=== PATIENT | female | born 1955 | race Caucasian/White ===

== ENCOUNTER 2016-03-22 14:17 | Inpatient (IN) | payer MEDICAID ==
[~2016-03-22] VITALS: Ht 157.5 cm; Wt 124.1 kg
[~2016-03-22 14:17] MED LIST: ALBU6.7H INH; ATOR1TAB18 PO; BUTA1CAP PO; DULO20 PO; GABA300C5 PO; IPRA17I INH; LEVEMIR SQ; LINA145C PO; LISI-515 PO; NITR1SUB3 SL; NOVOLOGP2 SQ; OMEP20TA PO; TORS20TA PO; XARE20TA PO
[2016-03-22 14:49] VITALS: BP 161/109; PULSE 100; RESP 20; TEMP 98.9; O2SAT 95
[2016-03-22] MEDS ORDERED: MORPHINE SULFATE 4 MG/ML INJ IV PUSH ONE (16:15)
[2016-03-22] MEDS ORDERED: ONDANSETRON HCL 4 MG/2 ML VIAL IV PUSH ONE (16:15)
--- NOTE | 2016-03-22 16:33 | RADRPT ---
EXAM DATE/TIME: 03/22/2016 16:24 [facility] COMPARISON: CHEST SINGLE AP, February 05, 2016, 4:15. INDICATIONS : Short of breath. MEDICAL HISTORY : Congestive heart failure. Chronic obstructive pulmonary disease. SURGICAL HISTORY : None. ENCOUNTER: Initial ACUITY: 1 day PAIN SCORE: 0/10 LOCATION: Bilateral chest FINDINGS: There is mild cardiomegaly present. Diffuse cephalization of pulmonary vasculature. By basilar airspa ce densities. CONCLUSION: Radiographic findings consistent with congestive heart failure and pulmonary edema. Pat Felder MD on March 22, 2016 at 16:30 Board Certified Radiologist. This report was verified electronically.
[2016-03-22 16:40] VITALS: O2SAT 99
--- NOTE | 2016-03-22 16:41 | PD ---
HPI Chief Complaint: Abdominal Pain Time Seen by Provider: 16:36 Travel History International Travel<30 days: No Contact w/Intl Traveler<30days: No Traveled to known affect area: No History of Present Illness HPI 60-year-old female that presents to the ED for evaluation of swelling in the lower legs, abdominal pain and left-sided chest pain. Patient states that this in ongoing for the past 2 days. Per patient she was seen and admitted at the [facility] in [facility] and apparently she was released about 2 days ago. Apparently during her admission she was found to be in severe CHF and had a full workup and imaging. Apparently everything came back negative except for the CHF and was treated for it and was deemed that she could go home. Per patient ever since she feels like his be getting progressively worse. Per patient she feels very short of breath when she lays down. Per patient the swelling on the legs gets worse with sitting and she feels very bloated in her abdomen. She denies any history of liver disease. She does have an allergy to hydromorphone. Per patient her pain in her abdomen and chest as well as her legs is 10 out of 10. She denies any numbness, tilling, weakness. States shortness of breath gets worse with exertion. Per patient she's been compliant with her medications that were prescribed to her and she was released from the previous hospital. No other medical prongs reported today. Denies any history of bowel movement or urinary issues of that she does tell me that the initial complaint when she went to the previous hospital was that she was having diarrhea and nausea and vomit. She did provide me with paperwork that collaborates this story from her previous admission. PFSH Past Medical History Hx Anticoagulant Therapy: Yes Arthritis: Yes Asthma: No Autoimmune Disease: No Blood Disorders: No Anxiety: No Depression: Yes Heart Rhythm Problems: No Cancer: No Cardiac Catheterization: Yes (2 STENTS 2012/XIMENA) Cardiovascular Problems: Yes High Cholesterol: Yes Chemotherapy: No Chest Pain: Yes Congestive Heart Failure: Yes COPD: Yes Cerebrovascular Accident: No Coronary Artery Disease: Yes Diabetes: Yes Patient Takes Glucophage: No Diminished Hearing: No Deep Vein Thrombosis: Yes Endocrine: Yes Gastrointestinal Disorders: Yes GERD: Yes Genitourinary: Yes Hepatitis: No Hiatal Hernia: No Heparin Induced Thrombocytopen: No Hypertension: Yes Immune Disorder: No Implanted Vascular Access Dvce: No Kidney Stones: No Musculoskeletal: Yes Neurologic: No Psychiatric: Yes Reproductive: No Respiratory: Yes Immunizations Current: Yes Migraines: Yes Myocardial Infarction: Yes (X2 2012) Radiation Therapy: No Renal Failure: No Seizures: No Sickle Cell Disease: No Sleep Apnea: No Thyroid Disease: No Ulcer: No Tetanus Vaccination: > 5 Years Menopausal: Yes : 2 Para: 2 Tubal Ligation: Yes Past Surgical History Abdominal Surgery: No AICD: No Appendectomy: No Arteriovenous Shunt: No Cardiac Surgery: No Cholecystectomy: Yes Ear Surgery: No Endocrine Surgery: No Eye Surgery: Yes (lasix surgery bilat ) Genitourinary Surgery: No Gynecologic Surgery: No Insulin Pump: No Joint Replacement: No Neurologic Surgery: No Oral Surgery: No Pacemaker: No Thoracic Surgery: No Tonsillectomy: Yes Other Surgery: Yes (HEART CATH, ) Social History Alcohol Use: No Tobacco Use: No (quit 1 year 2014) Substance Use: No Allergies-Medications (Allergen,Severity, Reaction): Coded Allergies: Codeine (Verified Allergy, Intermediate, rash, 04/26/15) Penicillin (Verified Allergy, Intermediate, RASH,FEVER, SEIZURE, 04/26/15) Hydromorphone (Verified Adverse Reaction, Intermediate, Nausea/Vomiting, ) very lightheaded *MDRO Multi-Drug Resistant Organism (Verified Adverse Reaction, Unknown, ) MRSA and MDR-E. Coli (leg wound) 04/2015 Reported Meds & Prescriptions Reported Meds & Active Scripts Active Reported Novolog Inj (Insulin Aspart) 1,000 Unit/10 Ml Vial 35 SQ HS Novolog Inj (Insulin Aspart) 1,000 Unit/10 Ml Vial 38 Units SQ DAILY Novolog Inj (Insulin Aspart) 1,000 Unit/10 Ml Vial 35 Units SQ AM Levemir Inj (Insulin Detemir) 1,000 unit/ 10 ML Vial 70 Units SQ BID Do not mix with any other Insulin. Atrovent HFA 12.9 GM Inh (Ipratropium Aurora) 17 Mcg/Act Aer 2 Puff INH TID Proventil Hfa 6.7 GM Inh (Albuterol Sulfate) 90 Mcg/Act Aer 2 Puff INH Q4-6H PRN Cymbalta DR (Duloxetine HCl) 20 Mg Capdr Unknown Dose PO DAILY Nitroglycerin SL (Nitroglycerin) 0.4 Mg Subl 0.4 Mg SL DIRECTED PRN ONE TABLET UNDER THE TONGUE NEEDED FOR CHEST PAIN, MAY REPEAT EVERY FIVE MINUTES FOR A TOTAL OF 3 DOSES OR CALL 911 IF NO RELIEF Linzess (Linaclotide) 145 Mcg Cap Unknown Dose PO DAILY Gabapentin 300 Mg Cap 300 Mg PO QID Fioricet (Asnxvrytgt-Gafdguiorlfdv-Jrjvgodj) 50-300-40 Mg Cap 1 Cap PO Q4H PRN Xarelto (Rivaroxaban) 20 Mg Tab 20 Mg PO DAILY Torsemide 20 Mg Tab 20 Mg PO DAILY Atorvastatin (Atorvastatin Calcium) 80 Mg Tab 80 Mg PO DAILY Omeprazole 20 Mg Tab 20 Mg PO DAILY Lisinopril 20 Mg Tab 20 Mg PO DAILY Review of Systems Except as stated in HPI: all other systems reviewed are Neg Physical Exam Narrative GENERAL: SKIN: Warm and dry. HEAD: Atraumatic. Normocephalic. EYES: Pupils equal and round. No scleral icterus. No injection or drainage. ENT: No nasal bleeding or discharge. Mucous membranes pink and moist. Tongue is midline. No uvula deviation. NECK: Trachea midline. No JVD. CARDIOVASCULAR: Regular rate and rhythm. No murmurs, S3, S4. RESPIRATORY: No accessory muscle use. Rales heard in all lung hdez. Breath sounds equal bilaterally. GASTROINTESTINAL: Abdomen soft, tender with deep palpation on the left upper quadrant as well as the epigastric area, nondistended. Hepatic and splenic margins not palpable. MUSCULOSKELETAL: Extremities without clubbing, cyanosis, or edema. No obvious deformities. Patient does have 2+ pulses bilaterally but does have 2+ pitting edema on the lower extremities. Erythema noted and very warm to touch in both legs. Patient does have breaking of the skin on the left lower leg. Yellow crusting noted as well. NEUROLOGICAL: Awake and alert. No obvious cranial nerve deficits. Motor grossly within normal limits. Five out of 5 muscle strength in the arms and legs. Normal speech. PSYCHIATRIC: Appropriate mood and affect; insight and judgment normal. Data Data Last Documented VS Vital Signs Date Time Temp Pulse Resp B/P Pulse Ox O2 Delivery O2 Flow Rate FiO2 03/22/16 19:40 98.1 88 18 157/79 97 Nasal Cannula 2 Orders Electrocardiogram (03/22/16 16:11) Complete Blood Count With Diff (03/22/16 16:11) Comprehensive Metabolic Panel (03/22/16 16:11) Ckmb (Isoenzyme) Profile (03/22/16 16:11) Troponin I (03/22/16 16:11) B-Type Natriuretic Peptide (03/22/16 16:11) Prothrombin Time / Inr (Pt) (03/22/16 16:11) Act Partial Throm Time (Ptt) (03/22/16 16:11) Lipase (03/22/16 16:11) Urinalysis - C+S If Indicated (03/22/16 16:11) Magnesium (Mg) (03/22/16 16:11) Thyroid Stimulating Hormone (03/22/16 16:11) Chest, Single Ap (03/22/16 16:11) Ct Abd/Pel W Iv Contrast(Rout) (03/22/16 16:11) Iv Access Insert/Monitor (03/22/16 16:11) Ecg Monitoring (03/22/16 16:11) Oximetry (03/22/16 16:11) Morphine Inj (Morphine Inj) (03/22/16 16:15) Ondansetron Inj (Zofran Inj) (03/22/16 16:15) Furosemide Inj (Lasix Inj) (03/22/16 17:30) CKMB (03/22/16 16:00) CKMB% (03/22/16 16:00) Iohexol 350 Inj (Omnipaque 350 Inj) (03/22/16 18:13) Labs Laboratory Tests Test 03/22/16 03/22/16 16:00 18:22 White Blood Count 9.7 TH/MM3 Red Blood Count 4.38 MIL/MM3 Hemoglobin 12.0 GM/DL Hematocrit 37.4 % Mean Corpuscular Volume 85.5 FL Mean Corpuscular Hemoglobin 27.5 PG Mean Corpuscular Hemoglobin 32.1 % Concent Red Cell Distribution Width 14.4 % Platelet Count 312 TH/MM3 Mean Platelet Volume 9.3 FL Neutrophils (%) (Auto) 74.0 % Lymphocytes (%) (Auto) 15.3 % Monocytes (%) (Auto) 7.0 % Eosinophils (%) (Auto) 2.8 % Basophils (%) (Auto) 0.9 % Neutrophils # (Auto) 7.2 TH/MM3 Lymphocytes # (Auto) 1.5 TH/MM3 Monocytes # (Auto) 0.7 TH/MM3 Eosinophils # (Auto) 0.3 TH/MM3 Basophils # (Auto) 0.1 TH/MM3 CBC Comment DIFF FINAL Differential Comment Prothrombin Time 11.5 SEC Prothromb Time International 1.0 RATIO Ratio Activated Partial 25.2 SEC Thromboplast Time Sodium Level 138 MEQ/L Potassium Level 4.7 MEQ/L Chloride Level 100 MEQ/L Carbon Dioxide Level 31.6 MEQ/L Anion Gap 6 MEQ/L Blood Urea Nitrogen 19 MG/DL Creatinine 0.75 MG/DL Estimat Glomerular Filtration 79 ML/MIN Rate Random Glucose 134 MG/DL Calcium Level 8.9 MG/DL Magnesium Level 2.3 MG/DL Total Bilirubin 0.8 MG/DL Aspartate Amino Transf 52 U/L (AST/SGOT) Alanine Aminotransferase 32 U/L (ALT/SGPT) Alkaline Phosphatase 387 U/L Total Creatine Kinase 264 U/L Creatine Kinase MB 6.0 NG/ML Creatine Kinase MB % 2.3 % Troponin I 0.13 NG/ML B-Type Natriuretic Peptide 578 PG/ML Total Protein 7.6 GM/DL Albumin 2.8 GM/DL Lipase 46 U/L Thyroid Stimulating Hormone 3.530 uIU/ML 3rd Gen Urine Color YELLOW Urine Turbidity CLEAR Urine pH 6.0 Urine Specific [place] 1.015 Urine Protein 300 mg/dL Urine Glucose (UA) 70 mg/dL Urine Ketones 10 mg/dL Urine Occult Blood SMALL Urine Nitrite NEG Urine Bilirubin NEG Urine Urobilinogen LESS THAN 2.0 MG/DL Urine Leukocyte Esterase NEG Urine RBC 4 /hpf Urine WBC 4 /hpf Urine Squamous Epithelial 3 /hpf Cells Urine Hyaline Casts 8 /lpf Urine Mucus FEW /lpf Microscopic Urinalysis Comment CULT NOT INDICATED MDM Medical Decision Making Medical Screen Exam Complete: Yes Emergency Medical Condition: Yes Medical Record Reviewed: Yes Interpretation(s) Last Impressions Chest X-Ray 03/22/16 1611 Signed Impressions: Service Date/Time: March 16:24 - CONCLUSION: Radiographic findings consistent with congestive heart failure and pulmonary edema. Pat Felder MD CBC & BMP Diagram 03/22/16 16:00 CT abdomen WNL troponin elevated CK elevated LFTS WNL TSH WNL Lipase WNL BNP in the 500s Differential Diagnosis CHF versus CHF exacerbation versus dyspnea versus pitting edema versus cellulitis versus ACS versus acute abdomen versus pancreatitis versus hepatitis Narrative Course 60-year-old female that presents to the ED for evaluation of abdominal pain, swelling in the lower legs and shortness of breath. Patient was properly examined and was found to have signs and symptoms which appear to be consistent with CHF exacerbation. Patient does have significant edema on the lower legs as well as the abdomen and cannot lay down without having severe shortness of breath. Labs and imaging ordered. Patient was given pain medication. Labs and imaging showed what appears to be CHF exacerbation. Patient does have a positive troponin which is likely chronic secondary to the CHF. CT was negative for acute abdominal disease. Case was discussed in my attending Dr. Morel who evaluated the patient and recommends admission for CHF exacerbation. Patient was already given 40 mg of Lasix with good results. HEPAS was paged and Dr Grant agrees to admission. Procedures EKG Prior to Arrival: No Diagnosis Primary Impression: CHF exacerbation Qualified Code: I50.23 - Acute on chronic systolic congestive heart failure Additional Impressions: Elevated troponin I level Leg pain, bilateral Admitting Information Admitting Physician Requests: Observation Guillermo Begum Mar 22, 2016 16:41
[2016-03-22 16:48] LABS: AUTOMATED NEUTROPHIL # 7.2 TH/MM3 (1.8-7.7); BASOPHIL # 0.1 TH/MM3 (0-0.2); BASOPHIL % 0.9 % (0.0-2.0); EOSINOPHIL # 0.3 TH/MM3 (0-0.4); EOSINOPHIL % 2.8 % (0.0-4.0); HEMATOCRIT 37.4 % (35.0-46.0); HEMO FLAGS DIFF FINAL; LYMPH % 15.3 % (9.0-44.0); LYMPHOCYTE # 1.5 TH/MM3 (1.0-4.8); MEAN CELL VOLUME 85.5 FL (80.0-100.0); MEAN CORPUSCULAR HEMOGLOBIN 27.5 PG (27.0-34.0); MEAN CORPUSCULAR HGB CONC 32.1 % (32.0-36.0); PLATELET COUNT 312 TH/MM3 (150-450); RED BLOOD COUNT 4.38 MIL/MM3 (4.00-5.30); RED CELL DISTRIBUTION WIDTH 14.4 % (11.6-17.2); WHITE BLOOD COUNT 9.7 TH/MM3 (4.0-11.0)
[2016-03-22 17:00] LABS: APTT (PATIENT) 25.2 SEC (24.3-30.1); PROTHROMBIN TIME - PATIENT 11.5 SEC (9.8-11.6)
[2016-03-22 17:21] LABS: ANION GAP 6 MEQ/L (5-15); AST (GOT) 52 U/L (15-37); BICARBONATE 31.6 MEQ/L (21.0-32.0); BLOOD UREA NITROGEN 19 MG/DL (7-18); CHLORIDE 100 MEQ/L (98-107); GLOMERULAR FILTRATION RATE 79 ML/MIN (>89); MAGNESIUM 2.3 MG/DL (1.5-2.5); POTASSIUM 4.7 MEQ/L (3.5-5.1); SODIUM (NA) 138 MEQ/L (136-145)
[2016-03-22 17:26] LABS: ALKALINE PHOSPHATASE 387 U/L (45-117); ALT (GPT) 32 U/L (10-53); CREATINE KINASE 264 U/L (26-192); TOTAL BILIRUBIN ADULT 0.8 MG/DL (0.2-1.0)
[2016-03-22] MEDS ORDERED: FUROSEMIDE 20 MG/2 ML VIAL IV PUSH ONE (17:30)
[2016-03-22] MEDS ORDERED: IOHEXOL 350 MG/ML 10 ML VIAL (for RAD DIAG) IV ONE (18:13)
[2016-03-22 18:34] LABS: BLOOD, URINE SMALL (NEG); COMMENT (UR) CULT NOT INDICATED; CULTURE IF INDICATED CULT NOT INDICATED; GLUCOSE,URINE 70 mg/dL (NEG); HYALINE CAST, URINE 8 /lpf (RARE); KETONE, URINE 10 mg/dL (NEG); MUCUS URINE FEW /lpf (OCC); NITRITE,URINE NEG (NEG); SQUAMOUS EPITHELIAL CELL URINE 3 /hpf (0-5); URINE COLOR YELLOW (YELLW/STRAW)
[2016-03-22 19:40] VITALS: BP 157/79; PULSE 88; RESP 18; TEMP 98.1; O2SAT 97
--- NOTE | 2016-03-22 19:58 | RADRPT ---
EXAM DATE/TIME: 03/22/2016 18:05 [facility] COMPARISON: No previous studies available for comparison. INDICATIONS : Diffuse abdominal pain with nausea and vomiting. IV CONTRAST: 97 cc Omnipaque 350 (iohexol) IV ORAL CONTRAST: No oral contrast ingested. RADIATION DOSE: 16.85 CTDIvol (mGy) MEDICAL HISTORY : Gastroesophageal reflux disease. Hypertension. Hypercholesterolemia. SURGICAL HISTORY : Cholecystectomy. Coronary stents. ENCOUNTER: Initial ACUITY: 2 days PAIN SCALE: 6/10 LOCATION: Bilateral lower quadrant TECHNIQUE: Volumetric scanning of the abdomen and pelvis was performed. Using automated exposure control and adjustment of the mA and/or kV according to patient size, radiation dose was kept as low as reasonably achievable to obtain optimal diagnostic quality images. FINDINGS: There is cardiomegaly with moderate interstitial edema and small bilateral pleural effu sions. There is no pericardial effusion. There is moderate fatty replacement to the liver. The spl een, pancreas, adrenals and kidneys are unremarkable. The region of the cecum and terminal ileum appear normal. In the pelvis there is a fibroid uterus. There is no free fluid. There is no free air. There are no significant air-fluid levels. CONCLUSION: Limited exam by the patient's body habitus. I do not see the etiology for the patien t's diffuse abdominal pain. Beni Nava MD FACR on March 22, 2016 at 19:53 Board Certified Radiologist. This report was verified electronically.
[2016-03-22] MEDS ORDERED: NALOXONE HCL 0.4 MG/ML AMP IV PRN (20:30)
[2016-03-22] MEDS ORDERED: SODIUM CHLORIDE 0.9% FLUSH 5 ML FLUSH FLUSH PRN (20:30)
[2016-03-22] MEDS ORDERED: DEXTROSE 50% IN WATER 50 ML VIAL(D50) IV PUSH PRN (20:30)
[2016-03-22] MEDS ORDERED: GLUCAGON 1 MG/ML VIAL OTHER PRN (20:30)
[2016-03-22] MEDS: MORPHINE SULFATE 4 MG/ML INJ IV PUSH PRN (20:42)
[2016-03-22] MEDS: INSULIN ASPART SUPPLEMENTAL SCALE SQ SCH (21:00)
[2016-03-22] MEDS: SODIUM CHLORIDE 0.9% FLUSH 5 ML FLUSH FLUSH SCH (21:19)
[2016-03-22 22:20] VITALS: BP 99/57; PULSE 75; RESP 20; TEMP 98; O2SAT 96
--- NOTE | 2016-03-22 23:59 | HHI.HP ---
[facility] Sean Silva DO Admission Diagnosis CHF exacerbation, elevated troponin Diagnoses: (1) CHF exacerbation (2) Abdominal pain (3) Type 2 diabetes mellitus Chief Complaint: Abdominal pain Travel History International Travel<30 Days: No Contact w/Intl Traveler <30 Da: No Traveled to Known Affected Are: No History of Present Illness Ms. Clayton is a 60 year-old female with a past history of CAD with stenting x 2 in circumflex, type 2 diabetes mellitus, hypertension, hyperlipidemia, and CHF who presented to the emergency room following hospitalization at [facility] for CHF (discharged 2 days ago) who presents to the ER with abdominal pain, shortness of breath, and lower extremity edema, since discharge from . Findings in the ER include elevated troponin 0.13, BNP 578. Chest x-ray demonstrates CHF and pulmonary edema. Abdomen/pelvis CT negative. CBC unremarkable. The patient is seen in the CDU. The patient reports that she went to [facility] for N/V/diarrhea. She had abdominal bloating and swelling and could not urinate. On day 2 of the hospital stay, had hemodialysis. Dr. Bernard saw the patient at [facility] and patient states that he said there is "nothing wrong" with her from the GI perspective. She came to our hospital 03/22 for severe abdominal pain; left upper quadrant - at 5 a.m. she could not take the pain any more and came to hospital for evaluation; no black or red stool. Pain did not radiate to back. Denies fever. Weight gain - 30 lbs in one month. GI: Dr. Bernard Cardiac: Dr. Acosta - last cardiac cath one month ago . Review of Systems Constitutional: DENIES: Fever, Chills Respiratory: COMPLAINS OF: Shortness of breath, DENIES: Cough Cardiovascular: COMPLAINS OF: Chest pain, Dyspnea on Exertion, Lower Extremity Edema Gastrointestinal: COMPLAINS OF: Abdominal pain, DENIES: Black stools, Bloody stools, Diarrhea, Nausea, Vomiting Genitourinary: DENIES: Hematuria, Dysuria Other all other systems reviewed and are otherwise negative . Past Family Social History Past Medical History Coronary artery disease status post stent placement in circumflex 2 in 2012 Type 2 diabetes mellitus Hypertension Hyperlipidemia Congestive heart failure Left leg PAD . Past Surgical History Multiple cardiac catheterizations Cholecystectomy Tonsillectomy Lasik surgery Stents in legs . Reported Medications wrote order for medication reconciliation to be completed . 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/2015 Active Ordered Medications Current Medications Morphine Sulfate (Morphine Inj) 4 mg ONCE ONCE IV PUSH Last administered on 16:48; Start 03/22/16 at 16:15; Stop 03/22/16 at 16:16; Status DC Ondansetron HCl (Zofran Inj) 4 mg ONCE ONCE IV PUSH Last administered on 16:48; Start 03/22/16 at 16:15; Stop 03/22/16 at 16:16; Status DC Furosemide (Lasix Inj) 20 mg ONCE ONCE IV PUSH Last administered on 03/22/16 17:30; Start 03/22/16 at 17:30; Stop 03/22/16 at 17:31; Status DC Iohexol (Omnipaque 350 Inj) 97 ml STK-MED ONCE IV Last administered on 18:13; Start 03/22/16 at 18:13; Stop 03/22/16 at 18:14; Status DC IV Flush (NS Flush) 2 ml UNSCH PRN FLUSH FLUSH AFTER USING IV ACCESS; Start 02/24 at 20:30 IV Flush (NS Flush) 2 ml BID FLUSH Last administered on 03/22/16 21:19; Start 03/22/16 at 21:00 Naloxone HCl (Narcan Inj) 0.4 mg UNSCH PRN IV SEE LABEL COMMENTS; Start at 20:30 Furosemide (Lasix Inj) 40 mg BID@,18 IV PUSH ; Start 03/23/16 at 09:00 Morphine Sulfate (Morphine Inj) 2 mg Q4HR PRN IV PUSH pain >5 Last administered on 03/22/16t 20:42; Start 03/22/16 at 20:30 Dextrose (D50w (Vial) Inj) 25 ml UNSCH PRN IV PUSH HYPOGLYCEMIA-SEE COMMENTS; Start 03/22/16 at 20:30 Glucagon (Glucagon Inj) 1 mg UNSCH PRN OTHER HYPOGLYCEMIA-SEE COMMENTS; Start 03/22/16 at 20:30 Insulin Aspart (NovoLOG SUPPLEMENTAL SCALE) 1 ACHS SLIDING SCALE SQ ; Start 02/24 at 21:00 . Family History Father with CAD . Social History Tobacco: smoked up to 3 ppd x 35 years, quit January 2015 Alcohol: rare Illicit Drugs: denies . Physical Exam Vital Signs Vital Signs Date Time Temp Pulse Resp B/P Pulse Ox O2 Delivery O2 Flow Rate FiO2 03/22/16 22:20 98.0 75 20 99/57 96 03/22/16 19:40 98.1 88 18 157/79 97 Nasal Cannula 2 03/22/16 16:40 99 03/22/16 14:49 98.9 100 20 161/109 95 Physical Exam GENERAL: This is a well-nourished, well-developed patient, in no apparent distress. SKIN: No rashes, ecchymoses or lesions. Cool and dry. HEAD: Atraumatic. Normocephalic. EYES: No scleral icterus. No injection or drainage. ENT: Nose without bleeding, purulent drainage. NECK: Trachea midline. No JVD or lymphadenopathy. CARDIOVASCULAR: Regular rate and rhythm without murmurs, gallops, or rubs. Bilateral lower extremities with pitting edema. RESPIRATORY: Breath sounds equal bilaterally. Rales bilateral bases. No wheezes or rhonchi. GASTROINTESTINAL: Abdomen soft, upper abdomen tender to palpation. No guarding. MUSCULOSKELETAL: Extremities without clubbing, cyanosis. No calf tenderness. NEUROLOGICAL: Awake and alert. Motor and sensory grossly within normal limits. Normal speech. . Laboratory Laboratory Tests Test 03/22/16 03/22/16 03/22/16 16:00 18:22 22:47 White Blood Count 9.7 Red Blood Count 4.38 Hemoglobin 12.0 Hematocrit 37.4 Mean Corpuscular Volume 85.5 Mean Corpuscular Hemoglobin 27.5 Mean Corpuscular Hemoglobin 32.1 Concent Red Cell Distribution Width 14.4 Platelet Count 312 Mean Platelet Volume 9.3 Neutrophils (%) (Auto) 74.0 Lymphocytes (%) (Auto) 15.3 Monocytes (%) (Auto) 7.0 Eosinophils (%) (Auto) 2.8 Basophils (%) (Auto) 0.9 Neutrophils # (Auto) 7.2 Lymphocytes # (Auto) 1.5 Monocytes # (Auto) 0.7 Eosinophils # (Auto) 0.3 Basophils # (Auto) 0.1 CBC Comment DIFF FINAL Differential Comment Prothrombin Time 11.5 Prothromb Time International 1.0 Ratio Activated Partial 25.2 Thromboplast Time Sodium Level 138 Potassium Level 4.7 Chloride Level 100 Carbon Dioxide Level 31.6 Anion Gap 6 Blood Urea Nitrogen 19 Creatinine 0.75 Estimat Glomerular Filtration 79 Rate Random Glucose 134 Calcium Level 8.9 Magnesium Level 2.3 Total Bilirubin 0.8 Aspartate Amino Transf 52 (AST/SGOT) Alanine Aminotransferase 32 (ALT/SGPT) Alkaline Phosphatase 387 Total Creatine Kinase 264 173 Creatine Kinase MB 6.0 Creatine Kinase MB % 2.3 Troponin I 0.13 0.11 B-Type Natriuretic Peptide 578 Total Protein 7.6 Albumin 2.8 Lipase 46 Thyroid Stimulating Hormone 3.530 3rd Gen Urine Color YELLOW Urine Turbidity CLEAR Urine pH 6.0 Urine Specific [place] 1.015 Urine Protein 300 Urine Glucose (UA) 70 Urine Ketones 10 Urine Occult Blood SMALL Urine Nitrite NEG Urine Bilirubin NEG Urine Urobilinogen LESS THAN 2.0 Urine Leukocyte Esterase NEG Urine RBC 4 Urine WBC 4 Urine Squamous Epithelial 3 Cells Urine Hyaline Casts 8 Urine Mucus FEW Microscopic Urinalysis Comment CULT NOT INDICATED Result Diagram: 03/22/16 1600 03/22/16 1600 Imaging Last Impressions Chest X-Ray 03/22/16 161 Signed Impressions: Service Date/Time: March 16:24 - CONCLUSION: Radiographic findings consistent with congestive heart failure and pulmonary edema. Pat Felder MD Abdomen/Pelvis CT 03/22/161610 Signed Impressions: Service Date/Time: March 18:05 - CONCLUSION: Limited exam by the patient's body habitus. I do not see the etiology for the patient's diffuse abdominal pain. Beni Nava MD FACR . Assessment and Plan Problem List: (1) CHF exacerbation ICD Code: I50.9 Status: Acute (2) Abdominal pain ICD Code: R10.9 Status: Acute (3) Type 2 diabetes mellitus ICD Code: E11.9 Status: Chronic Assessment and Plan Ms. Clayton is a 60 year-old female with a past history of CAD with stenting x 2 in circumflex, type 2 diabetes mellitus, hypertension, hyperlipidemia, and CHF who presented to the emergency room following hospitalization at [facility] for CHF (discharged 2 days ago) who presents to the ER with abdominal pain, shortness of breath, lower extremity edema, and chest pain since discharge from . Findings in the ER include elevated troponin 0.13, BNP 578. Chest x-ray demonstrates CHF and pulmonary edema. Abdomen/pelvis CT negative. CBC unremarkable. Symptomatic exacerbation of congestive heart failure - Lasix 40 mg IV twice a day - Rule out ACS with serial EKGs and cardiac enzymes - Strict I and O q shift - Continuous cardiac telemetry to monitor for cardiac arrhythmia - Vital signs every 4 hours - Obtain records from [facility] for last hospitalization - consent signed by patient - Morphine 2 mg every 4 hours as needed for pain Abdominal pain - Abd/pelvis CT with contrast is negative - study limited by patient's body habitus - Lipase low at 46 - Unable to determine source of abdominal pain; likely secondary to abdominal fluid - consider consulting patient's GI doctor if needed - Dr. Bernard Type 2 diabetes mellitus - Accu-Chek before meals and at bedtime with NovoLog sliding scale coverage - Hypoglycemia protocol - Monitor blood glucose levels and adjust medications if needed - Heart healthy and Diabetic diet DVT prophylaxis - Heparin 5000 units subq q8h PFT by Dr. Arthur on 01/03/2016 showed moderate airway restriction, no evidence of airway obstruction, nonsignificant response to inhaled bronchodilator, and mild reduction in diffusion capacity but normal when corrected for alveolar volume. Echocardiogram 01/17/[address] Sanchez EF 25 30% Written by Savanna Soria, acting as scribe for Dr. Grant on 03/22/16 at 2356 .The documentation accurately reflects the work performed [id number] by me on 03/22/16 at 2359 Discussed Condition With ER PA and RN . Physician Certification 2 Midnight Certification Type: Admission for Inpatient Services Order for Inpatient Services The services are ordered in accordance with Medicare regulations or non- Medicare payer requirements, as applicable. In the case of services not specified as inpatient-only, they are appropriately provided as inpatient services in accordance with the 2-midnight benchmark. Estimated LOS (days): 3 days is the estimated time the patient will need to remain in the hospital, assuming treatment plan goals are met and no additional complications. Post-Hospital Plan: Not yet determined Problem Qualifiers (1) CHF exacerbation: Qualified Code: I50.23 - Acute on chronic systolic congestive heart failure (2) Type 2 diabetes mellitus: Savanna Soria Mar 22, 2016 23:59 Anil Grant MD Mar 23, 2016 08:31
[2016-03-23] VITALS (8 sets, daily range): BP systolic 123–139; BP diastolic 58–94; PULSE 51–104; RESP 18–20; TEMP 97.8–98.5; O2SAT 92–98
[2016-03-23 04:29] LABS: AUTOMATED NEUTROPHIL # 6.4 TH/MM3 (1.8-7.7); BASOPHIL # 0.1 TH/MM3 (0-0.2); BASOPHIL % 0.6 % (0.0-2.0); EOSINOPHIL # 0.4 TH/MM3 (0-0.4); HEMATOCRIT 33.8 % (35.0-46.0); HEMO FLAGS DIFF FINAL; LYMPH % 16.7 % (9.0-44.0); LYMPHOCYTE # 1.5 TH/MM3 (1.0-4.8); MEAN CELL VOLUME 85.5 FL (80.0-100.0); MEAN CORPUSCULAR HEMOGLOBIN 27.5 PG (27.0-34.0); MEAN CORPUSCULAR HGB CONC 32.2 % (32.0-36.0); NEUT % 70.7 % (16.0-70.0); PLATELET COUNT 292 TH/MM3 (150-450); RED BLOOD COUNT 3.95 MIL/MM3 (4.00-5.30); RED CELL DISTRIBUTION WIDTH 14.3 % (11.6-17.2); WHITE BLOOD COUNT 9.1 TH/MM3 (4.0-11.0)
[2016-03-23] MEDS: INSULIN ASPART SUPPLEMENTAL SCALE SQ SCH ×4 (05:11→21:09)
[2016-03-23 05:12] LABS: BICARBONATE 30.5 MEQ/L (21.0-32.0); POTASSIUM 3.9 MEQ/L (3.5-5.1)
[2016-03-23] MEDS: HEPARIN SODIUM - SQ 10,000 UNITS/ML VIAL SQ SCH ×3 (05:12→21:08)
[2016-03-23] MEDS ORDERED: METOLAZONE 5 MG TAB PO ONE (07:30)
[2016-03-23] MEDS: SODIUM CHLORIDE 0.9% FLUSH 5 ML FLUSH FLUSH SCH ×2 (08:30→21:09)
[2016-03-23] MEDS: FUROSEMIDE 40 MG/4 ML VIAL IV PUSH SCH ×2 (08:32→16:39)
[2016-03-23] MEDS: LISINOPRIL 10 MG TAB PO SCH (08:33)
[2016-03-23] MEDS: CLOPIDOGREL 75 MG TAB PO SCH (08:33)
[2016-03-23] MEDS: CARVEDILOL 3.125 MG TAB PO SCH ×2 (08:33→21:08)
[2016-03-23] MEDS: SPIRONOLACTONE 25 MG TAB PO SCH (08:33)
[2016-03-23] MEDS: ASPIRIN EC 81 MG TABEC PO SCH (08:33)
[2016-03-23] MEDS ORDERED: CARV3.125 PO (08:40)
[2016-03-23] MEDS ORDERED: BUME1TAB PO (08:40)
[2016-03-23] MEDS ORDERED: LANTUS2P SQ (08:42)
[2016-03-23] MEDS ORDERED: HUMALOG SQ (08:44)
[2016-03-23] MEDS ORDERED: SIME80CH CHEW (08:45)
[2016-03-23] MEDS ORDERED: TRAM50TA PO (08:45)
[2016-03-23] MEDS ORDERED: ASPI81CH CHEW (08:47)
[2016-03-23] MEDS ORDERED: PLAV75TA29 PO (08:48)
--- NOTE | 2016-03-23 09:20 | MB ---
cc: JAYNE ACOSTA M.D., MARK B. M.D. DATE OF CONSULTATION 03/23/2016 REASON FOR CONSULTATION Abdominal discomfort, shortness of breath and edema. HISTORY Ms. Clayton is a 60-year-old obese female with a history of coronary artery disease, peripheral arterial disease, and diabetes mellitus type 2. The patient was admitted to the hospital last evening because of evaluation for complaints of a left lateral abdominal and back discomfort and increasing shortness of breath and edema over the past few days. She was recently admitted to [facility] in [facility] a week ago for similar complaints and was discharged three days ago. She says since that time, her symptoms have progressed especially her edema and weight gain. She states she has been taking all of her medications as directed. She describes some orthopnea, but no paroxysmal nocturnal dyspnea type symptoms. She says her lower extremity edema has progressed significantly. Although her previous records are not yet available, she tells me that she did have some renal failure when she was there and required dialysis one-time through a catheter in her neck. She says that was discontinued because she started making urine. She says she continues to make urine without any problems. MEDICATIONS She has been taking her medications as directed at home, although the actual medications and dosages are not available here. She has currently been placed on furosemide 40 mg IV b.i.d. and sliding scale insulin. At home, she tells me at one point she had been on anticoagulation therapy for lower extremity clots, but is no longer taking that and is now taking Plavix and aspirin therapy. She was also on an JAROD inhibitor and low-dose beta waldemar therapy, although the dosages are not certain. She says she is on home oxygen therapy. ALLERGIES CODEINE, PENICILLIN, HYDROMORPHONE. FAMILY HISTORY Significant for coronary disease in her father. PAST MEDICAL HISTORY 1. coronary artery disease. She has had a cardiac catheterization back in January 15, 2014 here that showed a left ventricular ejection fraction of 40% at that time, diagonal branch disease of 90%, 50-60% right coronary artery stenosis and underwent a drug-eluting stent implant to the circumflex artery at that time. Since then, according to her, she has not had a repeat cardiac catheterization, but has had peripheral vascular interventions. 2. She has peripheral arterial disease with claudication. 3. Diabetes mellitus type 2. 4. Hypertension 5. Hyperlipidemia 6. Congestive heart failure 7. Morbid obesity 8. She says she has had three prior myocardial infarctions. 9. Denies stroke. PAST SURGICAL HISTORY 1. Cardiac catheterization and stent implant as mentioned. 2. Cholecystectomy 3. Tonsillectomy 4. Lasix surgery 5. Multiple peripheral interventions, the last one was an atherectomy and balloon [employer] of her left SFA back in February 2016. That was done in [facility] [place] SOCIAL HISTORY The patient was a cigarette smoker up to three packs a day for over 35 years, but quit in January 2015. Denies any significant alcohol intake or any illicit drug use. She is currently single, but lives with some friends. Does no regular exercise. Walks with a cane. Very sedentary lifestyle at this time. REVIEW OF SYSTEMS Chronic lower extremity edema. Claudication. Denies palpitations, lightheadedness or syncope. Denies fevers, chills, night sweats, nausea, vomiting or diarrhea at this time. She has had some abdominal discomfort on and off for which she was evaluated for here in the emergency room with a CT scan that was unremarkable and also at [facility] a week ago. She denies any recent bleeding or clotting disorders. Except for that mentioned in HPI, her complete 12-point review of systems is otherwise negative. PHYSICAL EXAM Physical examination reveals a morbidly obese female lying in bed in no distress at this time. VITAL SIGNS: Blood pressure 123/59 mmHg, heart rate is 89 and regular, respiratory rate 19, temperature 97.8, oxygen saturation 94% on two liters nasal cannula. HEAD: Head is normocephalic and atraumatic. EYES: Pupils equal round react to light. Sclerae anicteric. Extraocular movements intact. NECK: The neck is supple. There is no adenopathies. There is no jugular venous distention appreciable due to a thick neck. Carotid upstrokes normal. No bruits. LUNGS: Clear with decreased breath sounds bilaterally. HEART: PMI is laterally displaced and diffuse. S1-S2 are distant. I hear no murmurs, gallops, clicks or rubs. ABDOMEN: Obese. Bowel sounds present. There is some mild left lower quadrant tenderness, but no rebound. No hepatosplenomegaly, masses or bruits appreciated. EXTREMITIES: Lower extremities reveal +2 to 3 pretibial edema bilaterally. Perfusion appears adequate although pulses are diminished and difficult to appreciate due to severe edema. NEUROLOGIC: Exam is grossly intact. EKG from the emergency room last night shows a sinus rhythm rate 94, right bundle branch block with old inferior infarct, consider old anterolateral infarct, abnormal EKG. Compared to previous EKG's, there is probably no significant change. Also there is a left ventricular hypertrophy with repolarization abnormalities. Abnormal EKG. Compared to prior EKG's, no significant change. Chest x-ray from yesterday shows congestive heart failure and pulmonary edema. ABDOMINAL CT Although limited study due to habitus was negative from yesterday. LABORATORY DATA CBC this morning white count 9.1, hemoglobin 10.9, platelet count 292,000. Coags are normal. Chemistries sodium 141, potassium 3.9, chloride 102, CO2 30.5, BUN 20, creatinine 0.73, magnesium 2.3, calcium 8.4, random glucose 153. Cardiac enzymes CPK on arrival was 264, it has fallen to 155 this morning. Troponin I on arrival yesterday 0.13 and has fallen to 0.10 this morning. TSH 3.53, lipase 46. BNP 578. IMPRESSION 1. Ischemic cardiomyopathy with moderate left ventricular dysfunction. 2. Acute on chronic systolic congestive heart failure. 3. Indeterminate elevation of troponin-I likely secondary to congestive heart failure and chronic ischemic heart disease. 4. Chronic renal insufficiency. 5. Peripheral arterial disease status post recent left SFA intervention. 6. Diabetes mellitus type 2 7. Morbid obesity 8. Hypertensive heart disease RECOMMENDATIONS 1. The patient has been admitted and will be observed on telemetry. 2. Strict I's and O's and daily weights have been ordered. We will be a little more aggressive with her diuresis at this time and follow her renal function closely considering her previous problems with this. 3. Continue intravenous furosemide. 4. I have added a low dose of Spironolactone and Metolazone and will follow her electrolytes and renal function closely. 5. Coreg 3.125 mg p.o. b.i.d. has been restarted as tolerates by blood pressure and heart rate. 6. Resume JAROD inhibitor therapy in the form of Lisinopril 10 mg daily again as tolerated by blood pressure. 7. An echocardiogram has been ordered for reevaluation of her left ventricular function and to exclude any occult valvular disease. 8. Dr. Simon will be covering Dr. Acosta over the weekend until she returns on Saturday. I have discussed the plans in detail with the patient. Thank you for allowing us participate in the care of this patient. MD JOAQUIN Mitchell/SAMEER /8:21 AM /8:57 AM
--- NOTE | 2016-03-23 14:02 | HHI.PR ---
Subjective Remarks Follow up for CHF exacerbation, abdominal pain, shortness of breath, LE edema. The patient reports continued shortness of breath today, unchanged compared to her arrival, worse with any exertion. She reports diffuse dull abdominal pain. Denies chest pains. Reports continued lower extremity edema. She has no other medical complaints at this time. Objective Vitals Vital Signs Date Time Temp Pulse Resp B/P Pulse Ox O2 Delivery O2 Flow Rate FiO2 03/23/16 11:39 98.1 51 18 124/58 93 03/23/16 08:00 87 03/23/16 07:33 97.8 89 19 123/59 94 03/23/16 04:51 98.1 89 18 138/79 98 03/22/16 22:20 98.0 75 20 99/57 96 03/22/16 19:40 98.1 88 18 157/79 97 Nasal Cannula 2 03/22/16 16:40 99 03/22/16 14:49 98.9 100 20 161/109 95 I/O 03/22/16 03/22/16 03/22/16 03/23/16 03/23/16 03/23/16 07:00 15:00 23:00 07:00 15:00 23:00 Output Total 250 ml Balance -250 ml Output Urine Total 250 ml # Voids 1 Result Diagram: 03/23/16 0356 03/23/16 0356 Imaging Last Impressions Chest X-Ray 03/22/161610 Signed Impressions: Service Date/Time: March 16:24 - CONCLUSION: Radiographic findings consistent with congestive heart failure and pulmonary edema. Pat Felder MD Abdomen/Pelvis CT 03/22/161610 Signed Impressions: Service Date/Time: March 18:05 - CONCLUSION: Limited exam by the patient's body habitus. I do not see the etiology for the patient's diffuse abdominal pain. Beni Nava MD FACR Objective Remarks GENERAL: Well-nourished, well-developed morbidly obese female patient in [facility]. SKIN: Warm and dry. No rash. HEAD: Normocephalic. Atraumatic. EYES: Pupils equal and round. No scleral icterus. No injection or drainage. ENT: No nasal bleeding or discharge. Mucous membranes pink and moist. NECK: Supple. Trachea midline. CARDIOVASCULAR: Regular rate and rhythm. S1, S2 noted. No murmur appreciated. RESPIRATORY: No accessory muscle use. Clear to auscultation. Breath sounds equal bilaterally. GASTROINTESTINAL: Obese abdomen, soft, non-tender, nondistended. Normoactive bowel sounds x4. MUSCULOSKELETAL: No obvious deformities. Diffuse tense 2+ lower extremity edema bilaterally. NEUROLOGICAL: Awake and alert. No obvious cranial nerve deficits. Motor grossly within normal limits. Moves all extremities spontaneously. Normal speech. PSYCHIATRIC: Appropriate mood and affect; insight and judgment normal. Medications and IVs Current Medications Medications (Trade) Dose Ordered Sig/Nury Route Start Time Stop Time Status Last Admin (NS Flush) 2 ml UNSCH PRN FLUSH 03/22/16 20:30 (NS Flush) 2 ml BID FLUSH 03/22/16 21:00 03/23/16 08:30 (Narcan Inj) 0.4 mg UNSCH PRN IV 03/22/16 20:30 (Lasix Inj) 40 mg BID@09,18 IV PUSH 03/23/16 09:00 03/23/16 08:32 (Morphine Inj) 2 mg Q4HR PRN IV PUSH 03/22/16 20:30 03/22/16 20:42 (D50w (Vial) Inj) 25 ml UNSCH PRN IV PUSH 03/22/16 20:30 (Glucagon Inj) 1 mg UNSCH PRN OTHER 03/22/16 20:30 (Heparin Inj) 5,000 units Q8HR SQ 03/23/16 06:00 03/23/16 12:27 (Plavix) 75 mg DAILY PO 03/23/16 09:00 03/23/16 08:33 (Ecotrin Ec) 81 mg DAILY PO 03/23/16 09:00 03/23/16 08:33 (Prinivil) 10 mg DAILY PO 03/23/16 09:00 03/23/16 08:33 (Coreg) 3.125 mg Q12HR PO 03/23/16 09:00 03/23/16 08:33 (Aldactone) 25 mg DAILY PO 03/23/16 09:00 03/23/16 08:33 Urinary Catheter: No Vascular Central Line Catheter: No A/P Problem List: (1) CHF exacerbation ICD Code: I50.9 Status: Acute (2) Abdominal pain ICD Code: R10.9 Status: Acute (3) Type 2 diabetes mellitus ICD Code: E11.9 Status: Chronic Assessment and Plan 60-year-old female with history of CHF, CAD with stents, PAD, DM, HTN, HLD, morbid obesity, presents with abdominal pain, SOB, LE edema, chest pain since discharge from 2 days ago Acute on Chronic Systolic CHF with Ischemic Cardiomyopathy: BNP 578. CXR images reviewed by me, shows CHF, pulmonary edema. Last echocardiogram 2014 showed EF 25-30% -Started on IV Lasix 40mg bid -Consult patient's cashier parking lot Dr. Acosta -Echocardiogram ordered -Continued coreg, lisinopril, aspirin, plavix -Check lipid panel, HgbA1c -Cardiology Dr. Spangler added spironolactone 25 mg daily and Zaroxolyn 5mg po x1 -Monitor Is&Os, daily weight -Obtain records from [facility] Abdominal Pain: unclear etiology. CT abd/pelvis images reviewed by me, unremarkable however limited study secondary to patient's body habitus. Lipase wnl. -possibly related to fluid overload with CHF as above -consider possibility of diabetic gastroparesis, will obtain records from work up at [facility] -consider gastric emptying study if abdominal pain does not improve with diuresis -outpatient follow up with her hotel service manager Dr. Mcguire Diabetes Mellitus, type 2: -monitor Accu-checks, cover wtih SSI -hypoglycemia protocol -check HgbA1c DVT Prophylaxis: Heparin Written by Nellie Templeton, acting as scribe for Dr. Alfonso on 03/23/16 at 09:45. Attending Statement The documentation accurately reflects the work performed [id number] by meDr. Alfonso on 03/23/16 at 09:45. Problem Qualifiers (1) CHF exacerbation: Qualified Code: I50.23 - Acute on chronic systolic congestive heart failure (2) Type 2 diabetes mellitus: Nellie Templeton PA-C Mar 23, 2016 14:02 Alrfed Alfonso MD Mar 25, 2016 09:05
[2016-03-23 15:43] LABS: HEMOGLOBIN A1a 1.8 %; HEMOGLOBIN A1b 1.2 %; HEMOGLOBIN Ao 75.5 %; HEMOGLOBIN F 2.1 %; HEMOGLOBIN LA1C 2.1 %; HEMOGLOBIN P3 4.2 %
--- NOTE | 2016-03-23 17:01 | EKG ---
Date Performed: 03/22/2016 Time Performed: 16:48:31 PTAGE: 60 years EKG: Sinus rhythm POSSIBLE LEFT ATRIAL ENLARGEMENT Right bundle branch block, with bifasicular block POSSIBLE LEFT DELORES TRICULAR HYPERTROPHY INFERIOR MYOCARDIAL INFARCTION ANTEROLATERAL MYOCARDIAL INFARCTION When compared to previous tracing, there has baltazar further Widening of the QRS complex, the patient now meets criter ia for A right bundle branch block with bifasicular block. Otherwise no significant change. ABNORMAL ECG PREVIOUS TRACING : 08/20/2015 17.37 DOCTOR: Eliane Gabriel Interpretating Date/Time 03/23/2016 17:00:32
--- NOTE | 2016-03-23 23:00 | EC ---
Study Study Date:03/23/2016 STUDY CONCLUSIONS SUMMARY - Procedure narrative: Transthoracic echocardiography. Image quality was poor and views were limited. - Left ventricle: The cavity size was normal. Wall thickness was normal. Systolic function was possibly normal. Ejection fraction cannot be adequately assessed. - Aortic valve: Poorly visualized. If LV function is below 40, please consider prescribing an ACEI or ARB or document rationale for non-use. PROCEDURE DATA STUDY STATUS: Elective. Procedure: Transthoracic echocardiography. Image quality was poor and views were limited. Study completion: The patient tolerated the procedure well. Transthoracic echocardiography. M-mode, complete 2D, complete spectral Doppler, and color Doppler. Patient status: Inpatient. CARDIAC ANATOMY LEFT VENTRICLE: The cavity size was normal. Wall thickness was normal. Systolic function was possibly normal. Ejection fraction cannot be adequately assessed. Images were inadequate for LV wall motion assessment. AORTIC VALVE: Poorly visualized. Doppler: Transvalvular velocity was within the normal range. There was no stenosis. No regurgitation. AORTA: Aortic root: The aortic root was normal in size. MITRAL VALVE: Structurally normal valve. Doppler: Transvalvular velocity was within the normal range. There was no evidence for stenosis. No regurgitation. LEFT ATRIUM: The atrium was normal in size. RIGHT VENTRICLE: The cavity size was normal. Wall thickness was normal. PULMONIC VALVE: Doppler: Transvalvular velocity was within the normal range. There was no evidence for stenosis. No regurgitation. TRICUSPID VALVE: Structurally normal valve. Doppler: Transvalvular velocity was within the normal range. No regurgitation. PULMONARY ARTERY: The main pulmonary artery was normal-sized. Systolic pressure was within the normal range. RIGHT ATRIUM: The atrium was normal in size. PERICARDIUM: There was no pericardial effusion. SYSTEMIC VEINS: Inferior vena cava: The vessel was normal in size. BASIC MEASUREMENTS ADULT NORMAL Left ventricle LV internal dimension, ED, chordal level, *54.1 mm 43-52 PLAX LV internal dimension, ES, chordal level, *48.9 mm 23-38 PLAX Fractional shortening, chordal level, PLAX *10 % >29 LV posterior wall thickness, ED 10.9 mm IVS/LVPW ratio, ED 0.96 <1.3 Ventricular septum Septal thickness, ED 10.5 mm Aortic valve Leaflet separation 21 mm 15-26 Right ventricle RV internal dimension, ED, PLAX 30.3 mm 19-38 BASIC MEASUREMENTS ADULT NORMAL Aortic valve Leaflet separation 21 mm 15-26 Aorta Root diameter, ED 29 mm 20-37 Left atrium Anterior-posterior dimension, ES *43 mm 19-40 LA/aortic root ratio 1.48 LEGEND: Mean values are shown as u=mean value. Asterisk (*) krueger values outside specified normal range. Prepared and signed by Tushar Obrien [id number]
[2016-03-24 00:10] VITALS: BP 152/81; PULSE 99; RESP 22; TEMP 98; O2SAT 94
[2016-03-24] MEDS: MORPHINE SULFATE 4 MG/ML INJ IV PUSH PRN ×5 (00:20→21:04)
[2016-03-24 04:00] VITALS: BP 154/69; PULSE 92; RESP 18; TEMP 98.2; O2SAT 97
[2016-03-24] MEDS: INSULIN ASPART SUPPLEMENTAL SCALE SQ SCH ×4 (07:04→20:57)
[2016-03-24] MEDS: HEPARIN SODIUM - SQ 10,000 UNITS/ML VIAL SQ SCH ×3 (07:04→21:05)
[2016-03-24 07:54] LABS: AUTOMATED NEUTROPHIL # 6.7 TH/MM3 (1.8-7.7); BASOPHIL % 0.4 % (0.0-2.0); EOSINOPHIL # 0.4 TH/MM3 (0-0.4); EOSINOPHIL % 4.7 % (0.0-4.0); HEMATOCRIT 32.8 % (35.0-46.0); HEMO FLAGS DIFF FINAL; LYMPH % 16.5 % (9.0-44.0); LYMPHOCYTE # 1.5 TH/MM3 (1.0-4.8); MEAN CELL VOLUME 85.2 FL (80.0-100.0); MEAN CORPUSCULAR HEMOGLOBIN 27.7 PG (27.0-34.0); MEAN CORPUSCULAR HGB CONC 32.5 % (32.0-36.0); MONO % 6.7 % (0.0-8.0); NEUT % 71.7 % (16.0-70.0); PLATELET COUNT 277 TH/MM3 (150-450); RED BLOOD COUNT 3.85 MIL/MM3 (4.00-5.30); RED CELL DISTRIBUTION WIDTH 14.2 % (11.6-17.2); WHITE BLOOD COUNT 9.3 TH/MM3 (4.0-11.0)
[2016-03-24 08:00] VITALS: BP 154/81; PULSE 89; PULSE 94; RESP 16; TEMP 97.8; O2SAT 94
[2016-03-24 08:13] LABS: BICARBONATE 31.1 MEQ/L (21.0-32.0); MAGNESIUM 2.1 MG/DL (1.5-2.5); POTASSIUM 3.4 MEQ/L (3.5-5.1)
[2016-03-24 08:14] LABS: HDL CHOLESTEROL 25.7 MG/DL (40.0-60.0)
[2016-03-24] MEDS: LISINOPRIL 10 MG TAB PO SCH (08:52)
[2016-03-24] MEDS: ASPIRIN EC 81 MG TABEC PO SCH (08:52)
[2016-03-24] MEDS: CLOPIDOGREL 75 MG TAB PO SCH (08:53)
[2016-03-24] MEDS: SPIRONOLACTONE 25 MG TAB PO SCH ×2 (08:53→20:56)
[2016-03-24] MEDS: FUROSEMIDE 40 MG/4 ML VIAL IV PUSH SCH ×2 (08:53→16:57)
[2016-03-24] MEDS: CARVEDILOL 3.125 MG TAB PO SCH ×2 (08:53→20:56)
[2016-03-24] MEDS: SODIUM CHLORIDE 0.9% FLUSH 5 ML FLUSH FLUSH SCH ×2 (08:53→20:56)
[2016-03-24] MEDS ORDERED: POTASSIUM CHLORIDE 10 MEQ CONTROLLED RELEASE TAB PO ONE (09:00)
[2016-03-24] MEDS: METOCLOPRAMIDE HCL 10 MG/2 ML VIAL IV PUSH SCH ×3 (09:09→16:58)
[2016-03-24 12:00] VITALS: BP 130/70; PULSE 84; RESP 16; TEMP 98.1; O2SAT 97
--- NOTE | 2016-03-24 15:00 | PD.CARD.PN ---
Subjective Subjective Remarks Patient feels "less swollen" today and is breathing better today. K+ replaced this morning. Objective Medications Current Medications Medications (Trade) Dose Ordered Sig/Nury Route Start Time Stop Time Status Last Admin (NS Flush) 2 ml UNSCH PRN FLUSH 03/22/16 20:30 (NS Flush) 2 ml BID FLUSH 03/22/16 21:00 03/24/16 08:53 (Narcan Inj) 0.4 mg UNSCH PRN IV 03/22/16 20:30 (Lasix Inj) 40 mg BID@,18 IV PUSH 03/23/16 09:00 03/24/16 08:53 (Morphine Inj) 2 mg Q4HR PRN IV PUSH 03/22/16 20:30 03/24/16 11:42 (D50w (Vial) Inj) 25 ml UNSCH PRN IV PUSH 03/22/16 20:30 (Glucagon Inj) 1 mg UNSCH PRN OTHER 03/22/16 20:30 (Heparin Inj) 5,000 units Q8HR SQ 03/23/16 06:00 03/24/16 07:04 (Plavix) 75 mg DAILY PO 03/23/16 09:00 03/24/16 08:53 (Ecotrin Ec) 81 mg DAILY PO 03/23/16 09:00 03/24/16 08:52 (Prinivil) 10 mg DAILY PO 03/23/16 09:00 03/24/16 08:52 (Coreg) 3.125 mg Q12HR PO 03/23/16 09:00 03/24/16 08:53 (Aldactone) 25 mg DAILY PO 03/23/16 09:00 03/24/16 08:53 (Reglan Inj) 10 mg TIDAC IV PUSH 03/24/16 08:00 03/24/16 11:42 Vital Signs / I&O Vital Signs Date Time Temp Pulse Resp B/P Pulse Ox O2 Delivery O2 Flow Rate FiO2 03/24/16 12:00 98.1 84 16 130/70 97 03/24/16 08:00 97.8 94 16 154/81 94 03/24/16 08:00 Nasal Cannula 2.00 03/24/16 08:00 89 03/24/16 04:00 98.2 92 18 154/69 97 03/24/16 00:10 98.0 99 22 152/81 94 03/24/16 00:00 Nasal Cannula 2.00 03/23/16 22:42 98 Nasal Cannula 2.00 03/23/16 21:00 Nasal Cannula 2.00 03/23/16 20:07 101 03/23/16 19:30 98.5 103 20 139/94 92 03/23/16 15:40 98.4 104 18 129/63 93 I/O 03/23/16 03/23/16 03/23/16 03/24/16 03/24/16 03/24/16 07:00 15:00 23:00 07:00 15:00 23:00 Intake Total 76 ml 200 ml 480 ml Output Total 350 ml 650 ml 1325 ml Balance -274 ml -450 ml -845 ml Intake Oral 200 ml 480 ml Oral Supplement 60 ml IV Total 16 ml Output Urine Total 350 ml 650 ml 1325 ml # Voids 4 # Bowel Movements 1 Physical Exam GENERAL: Obese female, no acute distress SKIN: Warm and dry. HEAD: Atraumatic. Normocephalic. EYES: Pupils equal and round. No scleral icterus. No injection or drainage. ENT: No nasal bleeding or discharge. Mucous membranes pink and moist. NECK: Trachea midline. CARDIOVASCULAR: Regular rate and rhythm. RESPIRATORY: No accessory muscle use. Breath sounds equal bilaterally. GASTROINTESTINAL: Abdomen soft, non-tender, nondistended. Obese MUSCULOSKELETAL: Extremities without clubbing, cyanosis, BLE edema, right lower extremity wound dressing C/D/I NEUROLOGICAL: Awake and alert. No obvious cranial nerve deficits. Motor grossly within normal limits. Five out of 5 muscle strength in the arms and legs. Normal speech. PSYCHIATRIC: Appropriate mood and affect; insight and judgment normal. Laboratory Laboratory Tests Test 03/23/16 03/24/16 16:44 06:23 Potassium Level 3.9 MEQ/L 3.4 MEQ/L White Blood Count 9.3 TH/MM3 Red Blood Count 3.85 MIL/MM3 Hemoglobin 10.7 GM/DL Hematocrit 32.8 % Mean Corpuscular Volume 85.2 FL Mean Corpuscular Hemoglobin 27.7 PG Mean Corpuscular Hemoglobin 32.5 % Concent Red Cell Distribution Width 14.2 % Platelet Count 277 TH/MM3 Mean Platelet Volume 8.9 FL Neutrophils (%) (Auto) 71.7 % Lymphocytes (%) (Auto) 16.5 % Monocytes (%) (Auto) 6.7 % Eosinophils (%) (Auto) 4.7 % Basophils (%) (Auto) 0.4 % Neutrophils # (Auto) 6.7 TH/MM3 Lymphocytes # (Auto) 1.5 TH/MM3 Monocytes # (Auto) 0.6 TH/MM3 Eosinophils # (Auto) 0.4 TH/MM3 Basophils # (Auto) 0.0 TH/MM3 CBC Comment DIFF FINAL Differential Comment Sodium Level 140 MEQ/L Chloride Level 99 MEQ/L Carbon Dioxide Level 31.1 MEQ/L Anion Gap 10 MEQ/L Blood Urea Nitrogen 17 MG/DL Creatinine 0.68 MG/DL Estimat Glomerular Filtration 89 ML/MIN Rate Random Glucose 175 MG/DL Calcium Level 8.4 MG/DL Magnesium Level 2.1 MG/DL Triglycerides Level 137 MG/DL Cholesterol Level 93 MG/DL LDL Cholesterol 40 MG/DL HDL Cholesterol 25.7 MG/DL Cholesterol/HDL Ratio 3.61 RATIO Imaging Last 72 hours Impressions Chest X-Ray 03/22/16 1611 Signed Impressions: Service Date/Time: March 16:24 - CONCLUSION: Radiographic findings consistent with congestive heart failure and pulmonary edema. Pat Felder MD Abdomen/Pelvis CT 03/22/16 1611 Signed Impressions: Service Date/Time: March 18:05 - CONCLUSION: Limited exam by the patient's body habitus. I do not see the etiology for the patient's diffuse abdominal pain. Beni Nava MD FACR Assessment and Plan Assessment and Plan Assessment: 1. Ischemic cardiomyopathy with moderate left ventricular dysfunction. 2. Acute on chronic systolic congestive heart failure. 3. Indeterminate elevation of troponin-I likely secondary to congestive heart failure and chronic ischemic heart disease. 4. RBBB with LAHB 5. Peripheral arterial disease status post recent left SFA intervention. 6. Diabetes mellitus type 2 7. Morbid obesity 8. Hypertensive heart disease 9. ASHD Plan: Continue strict I/O Increase Aldactone to BID Continue diuresis IV with careful monitoring of labwork Continue lisinopri, ASA, Plavix and Coreg Pending lower extremity doppler US Will follow up Assessment and plan discussed with Radha Brito Mar 24, 2016 14:59
[2016-03-24 16:00] VITALS: BP 120/56; PULSE 82; RESP 16; TEMP 98; O2SAT 96
[2016-03-24 20:00] VITALS: BP 118/61; PULSE 75; PULSE 91; RESP 18; TEMP 98.2; O2SAT 94
--- NOTE | 2016-03-24 23:44 | HHI.PR ---
Subjective Remarks patient seen today at around 4 PM. Says she is feeling a little better. Denies any chest pain. Denies any nausea or vomiting. Denies any lightheadedness or dizziness. Reviewed echocardiogram, which was unable to assess LV function. Objective Vital Signs Date Time Temp Pulse Resp B/P Pulse Ox O2 Delivery O2 Flow Rate FiO2 03/24/16 20:00 98.2 91 18 118/61 94 03/24/16 16:00 98.0 82 16 120/56 96 03/24/16 12:00 98.1 84 16 130/70 97 03/24/16 08:00 97.8 94 16 154/81 94 03/24/16 08:00 Nasal Cannula 2.00 03/24/16 08:00 89 03/24/16 04:00 98.2 92 18 154/69 97 03/24/16 00:10 98.0 99 22 152/81 94 03/24/16 00:00 Nasal Cannula 2.00 I/O 03/23/16 03/23/16 03/23/16 03/24/16 03/24/16 03/24/16 07:00 15:00 23:00 07:00 15:00 23:00 Intake Total 76 ml 200 ml 480 ml 240 ml Output Total 350 ml 650 ml 1325 ml 400 ml Balance -274 ml -450 ml -845 ml -160 ml Intake Oral 200 ml 480 ml 240 ml Oral Supplement 60 ml IV Total 16 ml Output Urine Total 350 ml 650 ml 1325 ml 400 ml # Voids 4 # Bowel Movements 1 0 Result Diagram: 03/24/16 0623 03/24/1623 Objective Remarks GENERAL: patient lying in bed. Appears comfortable. alert and oriented 3. SKIN: Warm and dry. HEAD: Normocephalic. EYES: No scleral icterus. No injection or drainage. NECK: Supple, trachea midline. No JVD. CARDIOVASCULAR: Regular rate and rhythm without murmurs, gallops, or rubs. RESPIRATORY: Breath sounds equal bilaterally. No accessory muscle use. GASTROINTESTINAL: Abdomen soft, non-tender, nondistended. MUSCULOSKELETAL: No cyanosis, or edema. BACK: Nontender without obvious deformity. No CVA tenderness. A/P Assessment and Plan 60-year-old female with history of CHF, CAD with stents, PAD, DM, HTN, HLD, morbid obesity, presents with abdominal pain, SOB, LE edema, chest pain since discharge from 2 days ago //Acute on Chronic Systolic CHF with Ischemic Cardiomyopathy: BNP 578. CXR images reviewed by me, shows CHF, pulmonary edema. Last echocardiogram 2014 showed EF 25-30% -Started on IV Lasix 40mg bid -Consult patient's medical office assistant Dr. Acosta -Echocardiogram unable to assess LV function. -Continued coreg, lisinopril, aspirin, plavix -Check lipid panel, HgbA1c -Cardiology Dr. Spangler added spironolactone 25 mg daily and Zaroxolyn 5mg po x1 -Monitor Is&Os, daily weight -Tense bilateral lower extremity edema is improving slowly. -Obtain records from [facility] -Cardiology following. Appreciate assistance. //Abdominal Pain: unclear etiology. CT abd/pelvis images reviewed by me, unremarkable however limited study secondary to patient's body habitus. Lipase wnl. -possibly related to fluid overload with CHF as above -consider possibility of diabetic gastroparesis, awaiting records from work up at [facility] -consider gastric emptying study if abdominal worsens. -outpatient follow up with her infant teacher Dr. Mcguire -Improving. //Diabetes Mellitus, type 2: Uncontrolled. A1c 12.9. -monitor Accu-checks, cover wtih SSI -Continue hypoglycemia protocol DVT Prophylaxis: Heparin Alfred Alfonso MD Mar 24, 2016 23:43
[2016-03-25] VITALS (7 sets, daily range): BP systolic 111–144; BP diastolic 55–87; PULSE 78–94; RESP 17–20; TEMP 97.6–98.2; O2SAT 96–99
[2016-03-25] MEDS: MORPHINE SULFATE 4 MG/ML INJ IV PUSH PRN ×4 (01:59→20:35)
[2016-03-25] MEDS: INSULIN ASPART SUPPLEMENTAL SCALE SQ SCH ×4 (05:31→20:53)
[2016-03-25] MEDS: HEPARIN SODIUM - SQ 10,000 UNITS/ML VIAL SQ SCH ×3 (05:31→20:36)
[2016-03-25 08:04] LABS: AUTOMATED NEUTROPHIL # 6.2 TH/MM3 (1.8-7.7); BASOPHIL # 0.1 TH/MM3 (0-0.2); BASOPHIL % 0.8 % (0.0-2.0); EOSINOPHIL # 0.4 TH/MM3 (0-0.4); HEMATOCRIT 35.6 % (35.0-46.0); HEMO FLAGS DIFF FINAL; LYMPH % 20.6 % (9.0-44.0); LYMPHOCYTE # 1.9 TH/MM3 (1.0-4.8); MEAN CELL VOLUME 84.9 FL (80.0-100.0); MEAN CORPUSCULAR HEMOGLOBIN 26.9 PG (27.0-34.0); MEAN CORPUSCULAR HGB CONC 31.7 % (32.0-36.0); NEUT % 68.6 % (16.0-70.0); PLATELET COUNT 271 TH/MM3 (150-450); RED CELL DISTRIBUTION WIDTH 14.7 % (11.6-17.2)
[2016-03-25 08:28] LABS: POTASSIUM 3.5 MEQ/L (3.5-5.1)
[2016-03-25] MEDS: METOCLOPRAMIDE HCL 10 MG/2 ML VIAL IV PUSH SCH ×3 (08:35→17:41)
[2016-03-25] MEDS: SODIUM CHLORIDE 0.9% FLUSH 5 ML FLUSH FLUSH SCH ×2 (08:35→20:53)
[2016-03-25] MEDS: SPIRONOLACTONE 25 MG TAB PO SCH ×2 (08:37→20:35)
[2016-03-25] MEDS: LISINOPRIL 10 MG TAB PO SCH (08:37)
[2016-03-25] MEDS: FUROSEMIDE 40 MG/4 ML VIAL IV PUSH SCH ×2 (08:37→17:44)
[2016-03-25] MEDS: CARVEDILOL 3.125 MG TAB PO SCH ×2 (08:37→20:36)
[2016-03-25] MEDS: CLOPIDOGREL 75 MG TAB PO SCH (08:37)
[2016-03-25] MEDS: ASPIRIN EC 81 MG TABEC PO SCH (08:38)
--- NOTE | 2016-03-25 09:55 | PD.CARD.PN ---
Subjective Subjective Remarks No complaints, Stable CV Objective Vital Signs / I&O Vital Signs Date Time Temp Pulse Resp B/P Pulse Ox O2 Delivery O2 Flow Rate FiO2 03/25/16 08:00 97.8 80 20 124/61 97 03/25/16 04:00 97.6 78 17 115/55 96 03/25/16 00:00 97.9 88 18 111/64 98 03/24/16 21:10 Nasal Cannula 2.00 03/24/16 20:00 75 03/24/16 20:00 98.2 91 18 118/61 94 03/24/16 16:00 98.0 82 16 120/56 96 03/24/16 12:00 98.1 84 16 130/70 97 I/O 03/24/16 03/24/16 03/24/16 03/25/16 03/25/16 03/25/16 07:00 15:00 23:00 07:00 15:00 23:00 Intake Total 200 ml 480 ml 240 ml 240 ml Output Total 650 ml 1325 ml 400 ml 300 ml Balance -450 ml -845 ml -160 ml -60 ml Intake Oral 200 ml 480 ml 240 ml 240 ml Output Urine Total 650 ml 1325 ml 400 ml 300 ml # Bowel Movements 0 Physical Exam CONSTITUTIONAL: Obese WF EYES: Conjunctiva normal. Sclera nonicteric. Eyelids normal. No xanthelasma. HEENT: Oral mucosa normal without pallor or cyanosis. NECK: JVD less than or equal to 5 cm of water. RESPIRATORY: Breathing is unlabored without accessory muscle use. Normal breath sounds. No wheezes, rales or rubs present. CARDIOVASCULAR: Normal point of maximal impulse. No cardiac thrill present. Regular rate and rhythm. No murmurs, gallops, rubs or clicks present. PERIPHERAL CIRCULATION: No cyanosis, clubbing, edema or varicosities present. GASTROINTESTINAL: Normal bowel sounds. Nontender without rigidity or guarding. No masses present. No hepatomegaly. Liver is nontender to palpation and spleen is nonpalpable. Digital rectal exam - not indicated for cardiovascular exam. MUSCULOSKELETAL: No kyphosis or scoliosis present. The patient is not ambulated. Able to undergo rehabilitation. SKIN: Skin turgor is normal. No rashes. NEUROLOGICAL: Grossly oriented to person, place and time. Normal mood and appropriate affect. Laboratory Laboratory Tests Test 03/25/16 05:43 White Blood Count 9.0 TH/MM3 Red Blood Count 4.20 MIL/MM3 Hemoglobin 11.3 GM/DL Hematocrit 35.6 % Mean Corpuscular Volume 84.9 FL Mean Corpuscular Hemoglobin 26.9 PG Mean Corpuscular Hemoglobin 31.7 % Concent Red Cell Distribution Width 14.7 % Platelet Count 271 TH/MM3 Mean Platelet Volume 8.8 FL Neutrophils (%) (Auto) 68.6 % Lymphocytes (%) (Auto) 20.6 % Monocytes (%) (Auto) 6.0 % Eosinophils (%) (Auto) 4.0 % Basophils (%) (Auto) 0.8 % Neutrophils # (Auto) 6.2 TH/MM3 Lymphocytes # (Auto) 1.9 TH/MM3 Monocytes # (Auto) 0.5 TH/MM3 Eosinophils # (Auto) 0.4 TH/MM3 Basophils # (Auto) 0.1 TH/MM3 CBC Comment DIFF FINAL Differential Comment Sodium Level 139 MEQ/L Potassium Level 3.5 MEQ/L Chloride Level 97 MEQ/L Carbon Dioxide Level 32.0 MEQ/L Anion Gap 10 MEQ/L Blood Urea Nitrogen 18 MG/DL Creatinine 0.65 MG/DL Estimat Glomerular Filtration 94 ML/MIN Rate Random Glucose 193 MG/DL Calcium Level 8.6 MG/DL Assessment and Plan Assessment and Plan Ischemic cardiomyopathy with moderate left ventricular dysfunction. and. chronic systolic congestive heart failure getting better elevation of troponin-I as per Dr Acosta with h/o stent Chronic renal insufficiency. Peripheral arterial disease , Diabetes mellitus type 2 obesity Hypertensive heart disease, Slow improvement.As per Antonio Lara MD Mar 25, 2016 09:55
[2016-03-25] MEDS: POTASSIUM CHLORIDE 10 MEQ CAP PO SCH ×2 (11:49→20:36)
[2016-03-25] MEDS ORDERED: SENNOSIDES 8.6 MG TAB PO PRN (16:00)
[2016-03-25] MEDS ORDERED: MAGNESIUM HYDROXIDE SUSP 30 ML CUP PO ONE (16:00)
[2016-03-25] MEDS ORDERED: SOD PHOSPHATE/SOD BIPHOSPHATE (ADULT) ENEMA 133ML PR ONE (16:00)
[2016-03-25] MEDS ORDERED: MAGNESIUM HYDROXIDE SUSP 30 ML CUP PO PRN (16:00)
[2016-03-25] MEDS ORDERED: DOCUSATE SODIUM 50 MG/SENNA 8.6 MG TAB PO ONE (16:00)
[2016-03-25] MEDS ORDERED: BISACODYL 10 MG SUPP PR PRN (16:00)
--- NOTE | 2016-03-25 17:05 | RADRPT ---
EXAM DATE/TIME: 03/25/2016 16:11 [place] COMPARISON: No previous studies available for comparison. INDICATIONS : Distention MEDICAL HISTORY : Hypertension. Gastroesophageal reflux disease. Hypercholesterolemia. SURGICAL HISTORY : Cholecystectomy. Coronary stents. ENCOUNTER: Initial ACUITY: 3 days PAIN SCORE: 6/10 LOCATION: Abdomen FINDINGS: Minimal gas filled transverse colon is noted. There is no significant small bowel dilatation. The guzman ng bases are clear. CONCLUSION: I do not see evidence for significant gaseous distention. Beni Nava MD FACR on March 25, 2016 at 16:50 Board Certified Radiologist. This report was verified electronically.
[2016-03-25] MEDS: DOCUSATE SODIUM 100 MG CAP PO SCH (17:38)
--- NOTE | 2016-03-25 23:12 | HHI.PR ---
Subjective Remarks patient reporting epigastric discomfort this afternoon after eating. She denies any shortness of breath. Says she feels constipated. Reports that bowel movement recorded 2 days ago was very small. Objective Vital Signs Date Time Temp Pulse Resp B/P Pulse Ox O2 Delivery O2 Flow Rate FiO2 03/25/16 20:30 Nasal Cannula 2.00 03/25/16 20:00 98.2 94 18 144/87 97 03/25/16 16:40 Nasal Cannula 2.00 03/25/16 16:00 97.9 80 18 120/65 99 03/25/16 12:00 97.9 84 18 126/60 97 03/25/16 08:04 85 03/25/16 08:00 97.8 80 20 124/61 97 03/25/16 04:00 97.6 78 17 115/55 96 03/25/16 00:00 97.9 88 18 111/64 98 I/O 03/24/16 03/24/16 03/24/16 03/25/16 03/25/16 03/25/16 07:00 15:00 23:00 07:00 15:00 23:00 Intake Total 200 ml 480 ml 240 ml 240 ml 960 ml 240 ml Output Total 650 ml 1325 ml 400 ml 300 ml 2000 ml 1100 ml Balance -450 ml -845 ml -160 ml -60 ml -1040 ml -860 ml Intake Oral 200 ml 480 ml 240 ml 240 ml 960 ml 240 ml Output Urine Total 650 ml 1325 ml 400 ml 300 ml 2000 ml 1100 ml # Bowel Movements 0 0 0 Result Diagram: 03/25/16 0543 03/25/16 0543 Objective Remarks GENERAL: patient lying in bed. Appears comfortable. alert and oriented 3. SKIN: Warm and dry. HEAD: Normocephalic. EYES: No scleral icterus. No injection or drainage. NECK: Supple, trachea midline. No JVD. CARDIOVASCULAR: Regular rate and rhythm without murmurs, gallops, or rubs. RESPIRATORY: Breath sounds equal bilaterally. No accessory muscle use. GASTROINTESTINAL: Abdomen soft, non-tender, nondistended. gastrointestinal/ midline lower chest tender to palpation. MUSCULOSKELETAL: No cyanosis, or edema. BACK: Nontender without obvious deformity. No CVA tenderness. A/P Assessment and Plan 60-year-old female with history of CHF, CAD with stents, PAD, DM, HTN, HLD, morbid obesity, presents with abdominal pain, SOB, LE edema, chest pain since discharge from 2 days ago //Acute on Chronic Systolic CHF with Ischemic Cardiomyopathy: BNP 578. CXR images reviewed by me, shows CHF, pulmonary edema. Last echocardiogram 2014 showed EF 25-30% -Started on IV Lasix 40mg bid -Consult patient's student assistant Dr. Acosta -Echocardiogram unable to assess LV function. -Continued coreg, lisinopril, aspirin, plavix -Check lipid panel, HgbA1c -Cardiology Dr. Spangler added spironolactone 25 mg daily and Zaroxolyn 5mg po x1 -Monitor Is&Os, daily weight -Tense bilateral lower extremity edema is improving slowly. -Obtain records from [facility] -Cardiology following. Appreciate assistance. //Abdominal Pain: unclear etiology. CT abd/pelvis images reviewed by me, unremarkable however limited study secondary to patient's body habitus. Lipase wnl. -possibly related to fluid overload with CHF as above -consider possibility of diabetic gastroparesis, awaiting records from work up at [facility] -consider gastric emptying study if abdominal worsens. -outpatient follow up with her business dean Dr. Mcguire -03/25 Improved intiallty, recurrence. ap abd negative. pt sasy this is constipation.laxatives given //Diabetes Mellitus, type 2: Uncontrolled. A1c 12.9. -monitor Accu-checks, cover wtih SSI -Continue hypoglycemia protocol DVT Prophylaxis: Heparin Discharge Planning home when cleared by cardiology. Alfred Alfonso MD Mar 25, 2016 23:12
[2016-03-26] VITALS (9 sets, daily range): BP systolic 123–159; BP diastolic 60–79; PULSE 81–97; RESP 16–20; TEMP 97.5–98.3; O2SAT 96–98
[2016-03-26] MEDS: MORPHINE SULFATE 4 MG/ML INJ IV PUSH PRN ×2 (00:51→21:22)
[2016-03-26] MEDS: DOCUSATE SODIUM 100 MG CAP PO SCH ×2 (03:33→16:57)
[2016-03-26] MEDS: INSULIN ASPART SUPPLEMENTAL SCALE SQ SCH ×4 (06:21→21:20)
[2016-03-26] MEDS: HEPARIN SODIUM - SQ 10,000 UNITS/ML VIAL SQ SCH ×3 (06:22→21:21)
[2016-03-26] MEDS: SODIUM CHLORIDE 0.9% FLUSH 5 ML FLUSH FLUSH SCH ×2 (09:09→21:22)
[2016-03-26] MEDS: SPIRONOLACTONE 25 MG TAB PO SCH ×2 (09:10→21:22)
[2016-03-26] MEDS: CARVEDILOL 3.125 MG TAB PO SCH ×2 (09:10→21:19)
[2016-03-26] MEDS: CLOPIDOGREL 75 MG TAB PO SCH (09:10)
[2016-03-26] MEDS: METOCLOPRAMIDE HCL 10 MG/2 ML VIAL IV PUSH SCH ×3 (09:10→17:00)
[2016-03-26] MEDS: ASPIRIN EC 81 MG TABEC PO SCH (09:10)
[2016-03-26] MEDS: LISINOPRIL 10 MG TAB PO SCH (09:10)
[2016-03-26] MEDS: FUROSEMIDE 40 MG/4 ML VIAL IV PUSH SCH ×2 (09:10→17:21)
[2016-03-26] MEDS: POTASSIUM CHLORIDE 10 MEQ CAP PO SCH ×2 (09:14→21:19)
[2016-03-26] MEDS ORDERED: SOD PHOSPHATE/SOD BIPHOSPHATE (ADULT) ENEMA 133ML PR ONE (09:15)
[2016-03-26 10:46] LABS: BICARBONATE 35.5 MEQ/L (21.0-32.0); POTASSIUM 4.2 MEQ/L (3.5-5.1)
--- NOTE | 2016-03-26 14:24 | HHI.PR ---
Subjective Remarks pt says she feels better s/p BM yesterday. no morepain. feels like going home has walker at home. glucose elevated. add levemir. Objective Vital Signs Date Time Temp Pulse Resp B/P Pulse Ox O2 Delivery O2 Flow Rate FiO2 03/26/16 12:00 98.0 84 16 142/67 97 03/26/16 08:00 98.1 86 20 125/65 96 03/26/16 04:00 98.3 81 17 139/69 97 03/26/16 00:00 98.0 82 18 123/60 98 03/25/16 20:30 Nasal Cannula 2.00 03/25/16 20:00 87 03/25/16 20:00 98.2 94 18 144/87 97 03/25/16 16:40 Nasal Cannula 2.00 03/25/16 16:00 97.9 80 18 120/65 99 I/O 03/25/16 03/25/16 03/25/16 03/26/16 03/26/16 03/26/16 07:00 15:00 23:00 07:00 15:00 23:00 Intake Total 240 ml 960 ml 240 ml 480 ml Output Total 300 ml 2000 ml 1100 ml 600 ml Balance -60 ml -1040 ml -860 ml -120 ml Intake Oral 240 ml 960 ml 240 ml 480 ml Output Urine Total 300 ml 2000 ml 1100 ml 600 ml # Bowel Movements 0 0 0 Result Diagram: 03/25/16 0543 03/26/16 1003 Objective Remarks GENERAL: patient lying in bed. Appears comfortable. alert and oriented 3. SKIN: Warm and dry. HEAD: Normocephalic. EYES: No scleral icterus. No injection or drainage. NECK: Supple, trachea midline. No JVD. CARDIOVASCULAR: Regular rate and rhythm without murmurs, gallops, or rubs. RESPIRATORY: Breath sounds equal bilaterally. No accessory muscle use. GASTROINTESTINAL: Abdomen soft, non-tender, nondistended. gastrointestinal/ midline lower chest tender to palpation. MUSCULOSKELETAL: No cyanosis, edema 2+ which was present yesterday has improved slightly. small blister over left anterior LE is stable, no signs of infection BACK: Nontender without obvious deformity. No CVA tenderness. A/P Assessment and Plan 60-year-old female with history of CHF, CAD with stents, PAD, DM, HTN, HLD, morbid obesity, presents with abdominal pain, SOB, LE edema, chest pain since discharge from 2 days ago //Acute on Chronic Systolic CHF with Ischemic Cardiomyopathy: BNP 578. CXR images reviewed by me, shows CHF, pulmonary edema. Last echocardiogram 2014 showed EF 25-30% -Started on IV Lasix 40mg bid -Consult patient's military personnel specialist Dr. Acosta -Echocardiogram unable to assess LV function. -Continued coreg, lisinopril, aspirin, plavix -Check lipid panel, HgbA1c -Cardiology Dr. Spangler added spironolactone 25 mg daily and Zaroxolyn 5mg po x1 -Monitor Is&Os, daily weight -Tense bilateral lower extremity edema is improving slowly. -re-request records from [facility] -Cardiology following. Appreciate assistance. //Abdominal Pain: unclear etiology. CT abd/pelvis images reviewed by me, unremarkable however limited study secondary to patient's body habitus. Lipase wnl. -possibly related to fluid overload with CHF as above -consider possibility of diabetic gastroparesis, awaiting records from work up at [facility] -consider gastric emptying study if abdominal worsens. -outpatient follow up with her hedis analyst Dr. Mcguire -03/25 Improved intiallty, recurrence. ap abd negative. pt sasy this is constipation.laxatives given -03/26 resolved. cont to monitor constipation. //Diabetes Mellitus, type 2: Uncontrolled. A1c 12.9. -monitor Accu-checks, cover wtih SSI -Continue hypoglycemia protocol -03/26 - glucose elevated. add levemir. DVT Prophylaxis: Heparin Discharge Planning home when cleared by cardiology. Alfred Alfonso MD Mar 26, 2016 14:24
[2016-03-26] MEDS ORDERED: INSULIN DETEMIR 100 UNITS/ML VIAL SQ SCH (15:30)
[2016-03-26] MEDS: DOCUSATE SODIUM 50 MG/SENNA 8.6 MG TAB PO SCH (21:19)
[2016-03-26] MEDS: INSULIN DETEMIR 100 UNITS/ML VIAL SQ SCH (21:20)
[2016-03-27 04:52] VITALS: BP 124/62; PULSE 84; RESP 18; TEMP 98; O2SAT 94
[2016-03-27] MEDS: DOCUSATE SODIUM 100 MG CAP PO SCH (06:38)
[2016-03-27] MEDS: HEPARIN SODIUM - SQ 10,000 UNITS/ML VIAL SQ SCH ×2 (06:38→14:00)
[2016-03-27] MEDS: INSULIN ASPART SUPPLEMENTAL SCALE SQ SCH ×2 (06:39→11:29)
[2016-03-27 08:00] VITALS: BP 137/66; PULSE 85; RESP 20; TEMP 98.3; O2SAT 98
[2016-03-27] MEDS: LISINOPRIL 10 MG TAB PO SCH (08:06)
[2016-03-27] MEDS: SODIUM CHLORIDE 0.9% FLUSH 5 ML FLUSH FLUSH SCH (08:06)
[2016-03-27] MEDS: CARVEDILOL 3.125 MG TAB PO SCH (08:06)
[2016-03-27] MEDS: FUROSEMIDE 40 MG/4 ML VIAL IV PUSH SCH (08:06)
[2016-03-27] MEDS: CLOPIDOGREL 75 MG TAB PO SCH (08:06)
[2016-03-27] MEDS: METOCLOPRAMIDE HCL 10 MG/2 ML VIAL IV PUSH SCH ×2 (08:06→11:29)
[2016-03-27] MEDS: POTASSIUM CHLORIDE 10 MEQ CAP PO SCH (08:07)
[2016-03-27] MEDS: SPIRONOLACTONE 25 MG TAB PO SCH (08:07)
[2016-03-27] MEDS: DOCUSATE SODIUM 50 MG/SENNA 8.6 MG TAB PO SCH (08:07)
[2016-03-27] MEDS: INSULIN DETEMIR 100 UNITS/ML VIAL SQ SCH (08:07)
[2016-03-27] MEDS: ASPIRIN EC 81 MG TABEC PO SCH (08:07)
[2016-03-27 08:10] VITALS: PULSE 83
[2016-03-27 12:00] VITALS: BP 103/62; PULSE 86; RESP 18; TEMP 98.3; O2SAT 96
[2016-03-27] MEDS ORDERED: SPIR25TA PO (14:37)
[2016-03-27] MEDS ORDERED: LISI10TA3 PO (14:37)
[2016-03-27] MEDS ORDERED: GABA300C5 PO (14:37)
[2016-03-27] MEDS ORDERED: BUME1TAB PO (14:37)
[2016-03-27] MEDS ORDERED: CARV3.125 PO (14:37)
[2016-03-27] MEDS ORDERED: DOCU1CAP39 PO (14:37)
--- NOTE | 2016-03-27 15:40 | HHI.DS ---
Discharge Summary Admission Date Mar 22, 2016 at 20:19 Discharge Date: Mar 27, 2016 Admitting Diagnosis CHF exacerbation, elevated troponin (1) CHF exacerbation ICD Code: I50.9 Diagnosis: Principal (2) Abdominal pain ICD Code: R10.9 Diagnosis: Secondary (3) Type 2 diabetes mellitus ICD Code: E11.9 Diagnosis: Secondary Procedures None Brief History - From Admission Ms. Clayton is a 60 year-old female with a past history of CAD with stenting x 2 in circumflex, type 2 diabetes mellitus, hypertension, hyperlipidemia, and CHF who presented to the emergency room following hospitalization at [facility] for CHF (discharged 2 days ago) who presents to the ER with abdominal pain, shortness of breath, and lower extremity edema, since discharge from . Findings in the ER include elevated troponin 0.13, BNP 578. Chest x-ray demonstrates CHF and pulmonary edema. Abdomen/pelvis CT negative. CBC unremarkable. The patient is seen in the CDU. The patient reports that she went to [facility] for N/V/diarrhea. She had abdominal bloating and swelling and could not urinate. On day 2 of the hospital stay, had hemodialysis. Dr. Bernard saw the patient at [facility] and patient states that he said there is "nothing wrong" with her from the GI perspective. She came to our hospital 03/22 for severe abdominal pain; left upper quadrant - at 5 a.m. she could not take the pain any more and came to hospital for evaluation; no black or red stool. Pain did not radiate to back. Denies fever. Weight gain - 30 lbs in one month. GI: Dr. Bernard Cardiac: Dr. Acosta - last cardiac cath one month ago . CBC/BMP: 03/25/16 0543 03/26/16 1003 Significant Findings Laboratory Tests Test 03/25/16 03/26/16 05:43 10:03 Hemoglobin 11.3 GM/DL (11.6-15.3) Mean Corpuscular Hemoglobin 26.9 PG (27.0-34.0) Mean Corpuscular Hemoglobin 31.7 % Concent (32.0-36.0) Chloride Level 97 MEQ/L 95 MEQ/L (98-107) (98-107) Random Glucose 193 MG/DL 287 MG/DL (74-106) (74-106) Carbon Dioxide Level 35.5 MEQ/L (21.0-32.0) Estimat Glomerular Filtration 72 ML/MIN (>89) Rate Imaging Last Impressions Abdomen X-Ray 03/25/16 0000 Signed Impressions: Service Date/Time: Friday, March 25, 2016 16:11 - CONCLUSION: I do not see evidence for significant gaseous distention. Beni Nava MD FACR Chest X-Ray 03/22/16 1611 Signed Impressions: Service Date/Time: March 16:24 - CONCLUSION: Radiographic findings consistent with congestive heart failure and pulmonary edema. Pat Felder MD Abdomen/Pelvis CT 03/22/16 1611 Signed Impressions: Service Date/Time: March 18:05 - CONCLUSION: Limited exam by the patient's body habitus. I do not see the etiology for the patient's diffuse abdominal pain. Beni Nava MD FACR PE at Discharge GENERAL: Well-nourished, well-developed morbidly obese female patient in [facility]. SKIN: Warm and dry. No rash. HEAD: Normocephalic. Atraumatic. EYES: Pupils equal and round. No scleral icterus. No injection or drainage. ENT: No nasal bleeding or discharge. Mucous membranes pink and moist. NECK: Supple. Trachea midline. CARDIOVASCULAR: Regular rate and rhythm. S1, S2 noted. No murmur appreciated. RESPIRATORY: No accessory muscle use. Clear to auscultation. Breath sounds equal bilaterally. GASTROINTESTINAL: Obese abdomen, soft, non-tender, nondistended. Normoactive bowel sounds x4. MUSCULOSKELETAL: No obvious deformities. 2+ lower extremity edema bilaterally. NEUROLOGICAL: Awake and alert. No obvious cranial nerve deficits. Motor grossly within normal limits. Moves all extremities spontaneously. Normal speech. PSYCHIATRIC: Appropriate mood and affect; insight and judgment normal. Pt update on day of discharge Patient denies chest pain, shortness breath, nausea, vomiting. She is asking to home. She uses a walker at home, has been ambulating here using a walker. She is on oxygen at home. Patient's hooker on, Dr. Acosta was contacted, recommended outpatient follow-up with her. Hospital Course 60-year-old female with history of CHF, CAD with stents, PAD, DM, HTN, HLD, morbid obesity, presents with abdominal pain, SOB, LE edema, chest pain since discharge from 2 days ago //Acute on Chronic Systolic CHF with Ischemic Cardiomyopathy: BNP 578. CXR images reviewed by me, shows CHF, pulmonary edema. Last echocardiogram 2014 showed EF 25-30% -Received IV Lasix and Zaroxolyn 1 -Consulted patient's hooker on Dr. Acosta -Echocardiogram unable to assess LV function. -Continued coreg, lisinopril, aspirin, plavix -Lipid panel with low HDL, otherwise WNLs. -Cardiology added spironolactone 25 mg daily -Monitor Is&Os, daily weight -Tense bilateral lower extremity edema improved slowly. -Cardiology contacted and patient cleared by cardiology for outpatient follow -up //Abdominal Pain: unclear etiology. CT abd/pelvis images reviewed by me, unremarkable however limited study secondary to patient's body habitus. Lipase wnl. -possibly related to fluid overload with CHF as above -consider possibility of diabetic gastroparesis, recent work up at [facility] -outpatient follow up with her associate manager affiliate marketing Dr. Mcguire -treated for constipation with improvement in symptoms //Diabetes Mellitus, type 2: Uncontrolled. A1c 12.9. -Continue coverage with basal and preprandial insulin -Outpatient PCP follow-up Pt Condition on Discharge: Good Discharge Disposition: Discharge Home Discharge Time: > 30 minutes Discharge Instructions DIET: Follow Instructions for: Heart Healthy Diet, Diabetic Diet Fluid Restrictions: 1800ml Activities you can perform: Regular-No Restrictions Follow up Referrals: Cardiology - 1 Week with Constanza Acosta MD PCP Follow-up - 1 Week with Sean Silva DO New Medications: Spironolactone (Spironolactone) 25 Mg Tab 25 MG PO BIDPC heart #60 Ref 0 TAB Docusate Sodium (Dok) 100 Mg Cap 100 MG PO Q12H Constipation Days 30 CAP Lisinopril (Lisinopril) 10 Mg Tab 10 MG PO DAILY heart Days 30 TAB Changed Medications: Bumetanide (Bumetanide) 1 Mg Tab 1 MG PO BID take 2 tabs by mouth in morning, on tablet in afternoon. #60 Ref 0 TAB (Medication details modified) Carvedilol (Coreg) 3.125 Mg Tab 3.125 MG PO BID heart #60 Ref 0 TAB (Changed from: DAILY) Gabapentin (Gabapentin) 300 Mg Cap 300 MG PO TID Pain Management #90 Ref 0 CAP (Changed from: QID) Continued Medications: Albuterol 6.7 GM Inh (Proventil Hfa 6.7 GM Inh) 90 Mcg/Act Aer 2 PUFF INH Q4-6H PRN SHORTNESS OF BREATH #1 Ref 0 INHALER Aspirin (Aspirin) 81 Mg Chew 81 MG CHEW DAILY Ref 0 TAB Atorvastatin (Atorvastatin) 80 Mg Tab 80 MG PO DAILY Cholesterol Management #30 Ref 0 TAB Clopidogrel (Plavix) 75 Mg Tab 75 MG PO DAILY Blood Clot Prevention #30 Ref 0 TAB Insulin Glargine Inj (Lantus Inj) 1,000 Unit/10 Ml Vial 10 UNITS SQ HS Blood Sugar Management Ref 0 VIAL Insulin Lispro (Human) Inj (Humalog Inj) 1,000 Unit/10 Ml Vial 5 UNITS SQ TIDAC Blood Sugar Management #1 Ref 0 VIAL Ipratropium HFA 12.9 GM Inh (Atrovent HFA 12.9 GM Inh) 17 Mcg/Act Aer 2 PUFF INH TID #1 Ref 0 INHALER Linaclotide (Linzess) 145 Mcg Cap Unknown Dose PO DAILY Ref 0 CAP Nitroglycerin SL (Nitroglycerin SL) 0.4 Mg Subl 0.4 MG SL DIRECTED ONE TABLET UNDER THE TONGUE NEEDED FOR CHEST PAIN, MAY REPEAT EVERY FIVE MINUTES FOR A TOTAL OF 3 DOSES OR CALL 911 IF NO RELIEF PRN CHEST PAIN #100 Ref 0 TAB.SL Omeprazole (Omeprazole) 20 Mg Tab 20 MG PO DAILY #30 Ref 0 TAB Simethicone (Simethicone) 80 Mg Chw 80 MG CHEW Q6HR PRN GAS RETENTION Ref 0 TAB Tramadol (Tramadol) 50 Mg Tab 50 MG PO Q8H PRN PAIN Ref 0 TAB Additional Information Written by Parker Ortiz, acting as scribe for Dr. Alfonso on 03/27/16 at 15:39. The documentation accurately reflects the work performed [id number] by me, Dr. Alfonso on 03/27/16 at 15:39. Parker Ortiz Mar 27, 2016 15:40 Alfred Alfonso MD Apr 05, 2016 07:38 Parker Ortiz Mar 27, 2016 15:40
== END 2016-03-27 16:15 | disposition home or self-care (01) | DRG 291 ==
LOC: NEPE 14:17 → NEDA 20:19 → OBSVTOIN 20:19 → NEPHCDU 21:53 → N04A 03-23 19:31
PROVIDERS: ADMIT Internal Medicine; ATTEND Internal Medicine
DX: I13.0 Hypertensive heart and chronic kidney disease with heart failure and stage 1 through stage 4 chronic kidney disease, or unspecified chronic kidney disease (principal); I50.23 Acute on chronic systolic (congestive) heart failure; E11.22 Type 2 diabetes mellitus with diabetic chronic kidney disease; Z68.43 Body mass index [BMI] 50.0-59.9, adult; I73.9 Peripheral vascular disease, unspecified; I45.2 Bifascicular block; E11.65 Type 2 diabetes mellitus with hyperglycemia; E66.01 Morbid (severe) obesity due to excess calories; I25.5 Ischemic cardiomyopathy; I25.10 Atherosclerotic heart disease of native coronary artery without angina pectoris; N18.9 Chronic kidney disease, unspecified; E78.00 Pure hypercholesterolemia, unspecified; E78.5 Hyperlipidemia, unspecified; I25.2 Old myocardial infarction; J44.9 Chronic obstructive pulmonary disease, unspecified; K21.9 Gastro-esophageal reflux disease without esophagitis; K59.00 Constipation, unspecified; F32.9 Major depressive disorder, single episode, unspecified; M19.90 Unspecified osteoarthritis, unspecified site; Z79.1 Long term (current) use of non-steroidal anti-inflammatories (NSAID); Z79.4 Long term (current) use of insulin; Z86.14 Personal history of Methicillin resistant Staphylococcus aureus infection; Z87.891 Personal history of nicotine dependence; Z86.718 Personal history of other venous thrombosis and embolism; Z88.0 Allergy status to penicillin; Z88.5 Allergy status to narcotic agent; Z95.5 Presence of coronary angioplasty implant and graft
CPT/HCPCS: 71010; 74000; 74177; 76937; 80048; 80053; 80061; 81001; 82550; 82552; 82948; 83036; 83690; 83735; 83880; 84132; 84443; 84484; 85025; 85610; 85730; 87641; 93005; 93306; 96374; 96375; J1644; J1815; J1940; J2270; J2405; J2765; Q9967

== ENCOUNTER 2016-04-24 08:39 | Observation (INO) | payer MEDICAID ==
[~2016-04-24] VITALS: Ht 157.5 cm; Wt 112.0 kg
[2016-04-24] VITALS (9 sets, daily range): BP systolic 76–118; BP diastolic 43–70; PULSE 93–104; RESP 12–25; TEMP 97.7–99.1; O2SAT 92–96
[~2016-04-24 08:39] MED LIST changes: +ASPI81CH CHEW; +BUME1TAB PO; -BUTA1CAP PO; +CARV3.125 PO; +DOCU1CAP39 PO; -DULO20 PO; +HUMALOG SQ; +LANTUS2P SQ; -LEVEMIR SQ; -LISI-515 PO; +LISI10TA3 PO; -NOVOLOGP2 SQ; +PLAV75TA29 PO; +SIME80CH CHEW; +SPIR25TA PO; -TORS20TA PO; +TRAM50TA PO; -XARE20TA PO
[2016-04-24] MEDS ORDERED: ONDANSETRON HCL 4 MG/2 ML VIAL ONE (08:52)
[2016-04-24] MEDS ORDERED: ONDANSETRON HCL 4 MG/2 ML VIAL IV PUSH ONE (09:00)
[2016-04-24] MEDS ORDERED: SODIUM CHLOR 0.9% 1000 ML INJ 1,000 ML IV ONE (09:00)
--- NOTE | 2016-04-24 09:06 | PD ---
HPI Chief Complaint: chest pain Time Seen by Provider: 08:50 Travel History International Travel<30 days: No Contact w/Intl Traveler<30days: No Traveled to known affect area: No History of Present Illness HPI 60-year-old female complains of chest pain, nausea vomiting. Patient states that the symptoms started this morning. Patient states of chest pain substernal chest pressure without radiation. Patient denies palpitation diaphoresis. Patient states that she has aching pain on the both arms. Patient has intermittent nausea vomiting since this morning. Patient denies any headache. Patient denies any visual change. Patient denies any shortness of breath. Patient denies abdominal pain. Patient denies any focal weakness or numbness of extremity. Patient has history of CAD status post ID 2. Patient's ophthalmic pathologist Dr. Constanza Acosta. Patient has history hypertension, diabetes, dyslipidemia, PAD, CAD with stents placement. Patient is on Plavix. Patient states that she stopped smoking a year ago. Patient has family history of heart disease. On a scale of 1-10 the pain is a 7. Patient took nitroglycerin sublingual and this morning for chest pain. EMS was called. Patient was transported to the ED for evaluation. Patient was found to be hypotensive prior to arrival. Systolic blood pressure was in the 80s. Patient has history of chronic systolic CHF with ischemic cardiomyopathy. Patient is on Spironolactone, Bumex, Coreg, lisinopril and aspirin. PFSH Past Medical History Hx Anticoagulant Therapy: Yes Arthritis: Yes Asthma: No Autoimmune Disease: No Blood Disorders: No Anxiety: No Depression: Yes (not going to kill self) Heart Rhythm Problems: No Cancer: No Cardiac Catheterization: Yes (2 STENTS 2012/XIMENA) Cardiovascular Problems: Yes High Cholesterol: Yes Chemotherapy: No Chest Pain: Yes Congestive Heart Failure: Yes COPD: Yes Cerebrovascular Accident: No Coronary Artery Disease: Yes Diabetes: Yes (iddm) Diminished Hearing: No Deep Vein Thrombosis: Yes Endocrine: Yes Gastrointestinal Disorders: Yes GERD: Yes Genitourinary: Yes Hepatitis: No Hiatal Hernia: No Heparin Induced Thrombocytopen: No Hypertension: Yes Immune Disorder: No Implanted Vascular Access Dvce: No Kidney Stones: No Musculoskeletal: Yes Neurologic: Yes Psychiatric: Yes Reproductive: No Respiratory: Yes Immunizations Current: Yes Migraines: Yes Myocardial Infarction: Yes (X2 2012) Radiation Therapy: No Renal Failure: Yes (dialysis x 1 day last week in [facility]) Seizures: No Sickle Cell Disease: No Sleep Apnea: Yes (no bipap claustiphobic) Thyroid Disease: No Ulcer: No Menopausal: Yes : 2 Para: 2 Tubal Ligation: Yes Past Surgical History Abdominal Surgery: Yes (gallbladder remmoved) AICD: No Appendectomy: No Arteriovenous Shunt: No Body Medical Devices: STENTS Cardiac Surgery: No Cholecystectomy: Yes Ear Surgery: No Endocrine Surgery: No Eye Surgery: Yes (lasix surgery bilat ) Genitourinary Surgery: No Gynecologic Surgery: No Insulin Pump: No Joint Replacement: No Neurologic Surgery: No Oral Surgery: No Pacemaker: No Thoracic Surgery: No Tonsillectomy: Yes Other Surgery: Yes (HEART CATH, ) Social History Alcohol Use: No Tobacco Use: No (quit 1 year 2014) Substance Use: No Allergies-Medications (Allergen,Severity, Reaction): Coded Allergies: Codeine (Verified Allergy, Intermediate, rash, 04/24/16) Penicillin (Verified Allergy, Intermediate, RASH,FEVER, SEIZURE, 04/24/16) Hydromorphone (Verified Adverse Reaction, Intermediate, Nausea/Vomiting, ) very lightheaded *MDRO Multi-Drug Resistant Organism (Verified Adverse Reaction, Unknown, ) MRSA and MDR-E. Coli (leg wound) 04/2015 Reported Meds & Prescriptions Reported Meds & Active Scripts Active Spironolactone 25 Mg Tab 25 Mg PO BIDPC Lisinopril 10 Mg Tab 10 Mg PO DAILY 30 Days Coreg (Carvedilol) 3.125 Mg Tab 3.125 Mg PO BID Gabapentin 300 Mg Cap 300 Mg PO TID Reported Levemir Inj (Insulin Detemir) 1,000 unit/ 10 ML Vial 70 Units SQ BID Do not mix with any other Insulin. Colace (Docusate Sodium) 100 Mg Cap 100 Mg PO BID Bumex (Bumetanide) 1 Mg Tab 1 Mg PO BID Aspirin DR (Aspirin) 81 Mg Tabdr 81 Mg PO DAILY Plavix (Clopidogrel Bisulfate) 75 Mg Tab 75 Mg PO DAILY Tramadol (Tramadol HCl) 50 Mg Tab 50 Mg PO Q8H PRN Atrovent HFA 12.9 GM Inh (Ipratropium [place]) 17 Mcg/Act Aer 2 Puff INH TID PRN Proventil Hfa 6.7 GM Inh (Albuterol Sulfate) 90 Mcg/Act Aer 2 Puff INH Q4-6H PRN Nitroglycerin SL (Nitroglycerin) 0.4 Mg Subl 0.4 Mg SL DIRECTED PRN ONE TABLET UNDER THE TONGUE NEEDED FOR CHEST PAIN, MAY REPEAT EVERY FIVE MINUTES FOR A TOTAL OF 3 DOSES OR CALL 911 IF NO RELIEF Linzess (Linaclotide) 145 Mcg Cap 145 Mcg PO DAILY PRN Atorvastatin (Atorvastatin Calcium) 80 Mg Tab 80 Mg PO DAILY Omeprazole 20 Mg Tab 20 Mg PO DAILY Review of Systems General / Constitutional: No: Fever Eyes: No: Visual changes HENT: No: Headaches Cardiovascular: Positive: Chest Pain or Discomfort Respiratory: No: Shortness of Breath Gastrointestinal: Positive: Nausea, Vomiting, No: Abdominal Pain Genitourinary: No: Dysuria Musculoskeletal: No: Pain Skin: No Rash Neurologic: No: Weakness Psychiatric: No: Depression Endocrine: No: Polydipsia Hematologic/Lymphatic: No: Easy Bruising Physical Exam Narrative GENERAL: Well-nourished, well-developed patient. SKIN: Warm and dry. HEAD: Normocephalic. EYES: No scleral icterus. No injection or drainage. NECK: Supple, trachea midline. No JVD or lymphadenopathy. CARDIOVASCULAR: Regular rate and rhythm without murmurs, gallops, or rubs. RESPIRATORY: Breath sounds equal bilaterally. No accessory muscle use. GASTROINTESTINAL: Abdomen soft, non-tender, nondistended. MUSCULOSKELETAL: No cyanosis, or edema. BACK: Nontender without obvious deformity. No CVA tenderness. Neurologic exam normal. Data Data Last Documented VS Vital Signs Date Time Temp Pulse Resp B/P Pulse Ox O2 Delivery O2 Flow Rate FiO2 04/24/16 09:51 93 16 89/53 96 Nasal Cannula 2 04/24/16 09:17 97.7 Orders Sodium Chlor 0.9% 1000 Ml Inj (Ns 1000 M (04/24/16 09:00) Ondansetron Inj (Zofran Inj) (04/24/16 09:00) Electrocardiogram (04/24/16 08:50) Complete Blood Count With Diff (04/24/16 08:50) Comprehensive Metabolic Panel (04/24/16 08:50) Creatine Kinase (Cpk) (04/24/16 08:50) Troponin I (04/24/16 08:50) Prothrombin Time / Inr (Pt) (04/24/16 08:50) Act Partial Throm Time (Ptt) (04/24/16 08:50) Lipase (04/24/16 08:50) Urinalysis - C+S If Indicated (04/24/16 08:50) Chest, Single Ap (04/24/16 08:50) Iv Access Insert/Monitor (04/24/16 08:50) Ecg Monitoring (04/24/16 08:50) Oximetry (04/24/16 08:50) Ondansetron Inj (Zofran Inj) (04/24/16 08:52) Consult Vascular Access Team (04/24/16 ) Beta Hydroxybutyrate (Acetone) (04/24/16 09:06) Vascular Poc Ultrasound (04/24/16 ) Sodium Chlorid 0.9% 500 Ml Inj (Ns 500 M (04/24/16 09:15) B-Type Natriuretic Peptide (04/24/16 09:30) Sodium Chlorid 0.9% 500 Ml Inj (Ns 500 M (04/24/16 10:00) Insulin Human Regular Inj (Novolin R Inj (04/24/16 10:00) Labs Laboratory Tests Test 04/24/16 09:10 White Blood Count 13.6 TH/MM3 Red Blood Count 5.02 MIL/MM3 Hemoglobin 13.3 GM/DL Hematocrit 41.3 % Mean Corpuscular Volume 82.3 FL Mean Corpuscular Hemoglobin 26.6 PG Mean Corpuscular Hemoglobin 32.2 % Concent Red Cell Distribution Width 14.4 % Platelet Count 213 TH/MM3 Mean Platelet Volume 10.0 FL Neutrophils (%) (Auto) 80.7 % Lymphocytes (%) (Auto) 7.9 % Monocytes (%) (Auto) 8.0 % Eosinophils (%) (Auto) 3.2 % Basophils (%) (Auto) 0.2 % Neutrophils # (Auto) 11.0 TH/MM3 Lymphocytes # (Auto) 1.1 TH/MM3 Monocytes # (Auto) 1.1 TH/MM3 Eosinophils # (Auto) 0.4 TH/MM3 Basophils # (Auto) 0.0 TH/MM3 CBC Comment DIFF FINAL Differential Comment Prothrombin Time 10.3 SEC Prothromb Time International 0.9 RATIO Ratio Activated Partial 23.3 SEC Thromboplast Time Sodium Level 130 MEQ/L Potassium Level 4.4 MEQ/L Chloride Level 96 MEQ/L Carbon Dioxide Level 22.6 MEQ/L Anion Gap 11 MEQ/L Blood Urea Nitrogen 34 MG/DL Creatinine 1.46 MG/DL Estimat Glomerular Filtration 37 ML/MIN Rate Random Glucose 547 MG/DL Calcium Level 9.4 MG/DL Total Bilirubin 0.2 MG/DL Aspartate Amino Transf 19 U/L (AST/SGOT) Alanine Aminotransferase 24 U/L (ALT/SGPT) Alkaline Phosphatase 126 U/L Total Creatine Kinase 143 U/L Troponin I 0.04 NG/ML Total Protein 7.9 GM/DL Albumin 3.1 GM/DL Lipase 341 U/L B-Hydroxybutyrate 0.18 MMOL/L MDM Medical Decision Making Medical Screen Exam Complete: Yes Emergency Medical Condition: Yes Medical Record Reviewed: Yes Interpretation(s) 9:12 AM. EKG shows sinus rhythm with right bundle-branch block. Unchanged from previous EKG. 9:51 AM. CBC WBC 13.6. Hemoglobin 13.3 hematocrit 41.3. 80 neutrophil. Sodium 1:30. BUN 34. Creatinine 1.46. GFR 37. Glucose 547. Cardiac enzymes are normal. Beta hydroxybutyrate 0.18. Differential Diagnosis Differential diagnosis including angina, ID, PE, pneumothorax, hyperglycemia, DKA. Narrative Course 60-year-old female with chest pain and nausea vomiting. History of CAD. Normal saline solution 500 ML IV bolus. Zofran 4 mg IV. Blood pressure improved. 9:50 AM. Systolic blood pressure in the upper 80s now. Normal saline solution 500 cc IV bolus. Novolin R, 10 units IV given. Diagnosis Primary Impression: Chest pain Qualified Code: R07.9 - Chest pain, unspecified type Additional Impressions: Hyperglycemia Acute kidney injury Dehydration Hyponatremia David Linares MD Apr 24, 2016 09:06
[2016-04-24] MEDS ORDERED: SODIUM CHLORID 0.9% 500 ML INJ 500 ML IV ONE ×2 (09:15→10:00)
[2016-04-24 09:21] LABS: BASOPHIL % 0.2 % (0.0-2.0); EOSINOPHIL # 0.4 TH/MM3 (0-0.4); EOSINOPHIL % 3.2 % (0.0-4.0); HEMATOCRIT 41.3 % (35.0-46.0); HEMO FLAGS DIFF FINAL; LYMPH % 7.9 % (9.0-44.0); LYMPHOCYTE # 1.1 TH/MM3 (1.0-4.8); MEAN CELL VOLUME 82.3 FL (80.0-100.0); MEAN CORPUSCULAR HEMOGLOBIN 26.6 PG (27.0-34.0); MEAN CORPUSCULAR HGB CONC 32.2 % (32.0-36.0); NEUT % 80.7 % (16.0-70.0); PLATELET COUNT 213 TH/MM3 (150-450); RED BLOOD COUNT 5.02 MIL/MM3 (4.00-5.30); RED CELL DISTRIBUTION WIDTH 14.4 % (11.6-17.2); WHITE BLOOD COUNT 13.6 TH/MM3 (4.0-11.0)
[2016-04-24 09:26] LABS: APTT (PATIENT) 23.3 SEC (24.3-30.1); INTERNATIONAL NORMALIZED RATIO 0.9 RATIO; PROTHROMBIN TIME - PATIENT 10.3 SEC (9.8-11.6)
[2016-04-24 09:47] LABS: ALKALINE PHOSPHATASE 126 U/L (45-117); ALT (GPT) 24 U/L (10-53); ANION GAP 11 MEQ/L (5-15); AST (GOT) 19 U/L (15-37); BICARBONATE 22.6 MEQ/L (21.0-32.0); BLOOD UREA NITROGEN 34 MG/DL (7-18); CHLORIDE 96 MEQ/L (98-107); CREATINE KINASE 143 U/L (26-192); GLOMERULAR FILTRATION RATE 37 ML/MIN (>89); POTASSIUM 4.4 MEQ/L (3.5-5.1); SODIUM (NA) 130 MEQ/L (136-145); TOTAL BILIRUBIN ADULT 0.2 MG/DL (0.2-1.0)
[2016-04-24] MEDS ORDERED: BUME1TAB26 PO (09:51)
[2016-04-24] MEDS ORDERED: ASPI81TA67 PO (09:51)
[2016-04-24] MEDS ORDERED: COLA100C3 PO (09:51)
[2016-04-24] MEDS ORDERED: LEVEMIR SQ (09:55)
[2016-04-24] MEDS ORDERED: INSULIN HUMAN REGULAR 1,000 UNITS/10 ML VIAL IVP ONE (10:00)
[2016-04-24] MEDS: SODIUM CHLOR 0.9% 1000 ML INJ 1,000 ML IV SCH ×2 (10:00→11:09)
--- NOTE | 2016-04-24 10:06 | RADRPT ---
EXAM DATE/TIME: 04/24/2016 09:03 [place] COMPARISON: CHEST SINGLE AP, March 22, 2016, 16:24. INDICATIONS : Shortness of breath, and nausea MEDICAL HISTORY : Chronic obstructive pulmonary disease. Congestive heart failure. Asthma SURGICAL HISTORY : None. ENCOUNTER: Initial ACUITY: 1 day PAIN SCORE: 0/10 LOCATION: Bilateral chest FINDINGS: A single AP erect portable view of the chest was obtained. The study remains Midinspiratory with mild streaky opacity at the lung bases which is improved from the prior study. There is no effusion. The heart size is mildly prominent. The bony thorax remains intact and they're overlying electrocardiogra m leads. CONCLUSION: Minimal streaky opacity is now noted the lung bases with no effusion. Melo Yarbrough MD on April 24, 2016 at 10:04 Board Certified Radiologist. This report was verified electronically.
[2016-04-24] MEDS ORDERED: DEXTROSE 50% IN WATER 50 ML VIAL(D50) IV PUSH PRN (10:30)
[2016-04-24] MEDS ORDERED: GLUCAGON 1 MG/ML VIAL OTHER PRN (10:30)
[2016-04-24 11:11] LABS: BACTERIA, URINE OCC /hpf; BLOOD, URINE SMALL (NEG); COMMENT (UR) CULT NOT INDICATED; CULTURE IF INDICATED CULT NOT INDICATED; GLUCOSE,URINE 1000 mg/dL (NEG); HYALINE CAST, URINE 1 /lpf (RARE); KETONE, URINE NEG (NEG); NITRITE,URINE NEG (NEG); PH, URINE 5.5 (5.0-8.5); SQUAMOUS EPITHELIAL CELL URINE 5 /hpf (0-5); URINE COLOR LIGHT-YELLOW (YELLW/STRAW)
[2016-04-24] MEDS: INSULIN ASPART SUPPLEMENTAL SCALE SQ SCH ×3 (11:46→22:50)
[2016-04-24] MEDS ORDERED: ALBUTEROL SULFATE 90 MCG/ACT HFA 8 GM INHALER INH PRN (12:30)
[2016-04-24] MEDS ORDERED: IPRATROPIUM BROMIDE 17 MCG/ACT 12.9 GM INHALER INH PRN (12:30)
[2016-04-24] MEDS ORDERED: ONDANSETRON HCL 4 MG/2 ML VIAL IV PUSH PRN (12:30)
--- NOTE | 2016-04-24 12:37 | HHI.HP ---
[facility] Primary Care Physician Sean Silva DO Admission Diagnosis chest pain. Acute kidney injury. Hyperglycemia. Dehydration Diagnoses: (1) Chest pain Diagnosis: Principal Chief Complaint: chest pain Travel History International Travel<30 Days: No Contact w/Intl Traveler <30 Da: No Traveled to Known Affected Are: No History of Present Illness patient is a 60 y/o female with history of CAD- s/p stent placement, diabetes and hypertension who presented to ER with chest pain. she describes the pain as ' someone is sitting on my chest '. pain has no radiation and is associated with persistent nausea and vomiting. she says that this is the type of the pain that she had heart attack three years ago. chest pain is midsternal. she says that she saw just two days ago but ' everything was ok at that time'. Review of Systems Constitutional: DENIES: Fever, Weight loss, Chills, Night Sweats Eyes: DENIES: Blurred vision, Diplopia, Vision loss, Double Vision Ears, nose, mouth, throat: DENIES: Tinnitus, Vertigo, Throat pain, Epistaxis Respiratory: DENIES: Apneas, Cough, Snoring, Wheezing, Hemoptysis, Sputum production, Shortness of breath Cardiovascular: COMPLAINS OF: Chest pain, DENIES: Palpitations, Syncope, Dyspnea on Exertion, PND, Lower Extremity Edema, Orthopnea, Claudication Gastrointestinal: COMPLAINS OF: Nausea, Vomiting, DENIES: Abdominal pain, Black stools, Bloody stools, Constipation, Diarrhea, Difficulty Swallowing, Anorexia Genitourinary: DENIES: Urinary frequency, Urgency, Hematuria, Dysuria Musculoskeletal: DENIES: Joint pain, Muscle aches, Stiffness, Joint Swelling Integumentary: DENIES: Rash Neurologic: DENIES: Abnormal gait, Headache, Localized weakness, Paresthesias, Seizures, Speech Problems, Tremor, Poor Balance Psychiatric: DENIES: Anxiety, Confusion, Mood changes, Depression, Hallucinations, Agitation, Suicidal Ideation, Homicidal Ideation, Delusions Past Family Social History Past Medical History CAD hypertension diabetes mellitus dyslipidemia cardiomyopathy Past Surgical History cholecystectomy Reported Medications Spironolactone 25 Mg Tab 25 Mg PO BIDPC Lisinopril 10 Mg Tab 10 Mg PO DAILY 30 Days Coreg (Carvedilol) 3.125 Mg Tab 3.125 Mg PO BID Gabapentin 300 Mg Cap 300 Mg PO TID Reported Levemir Inj (Insulin Detemir) 1,000 unit/ 10 ML Vial 70 Units SQ BID Do not mix with any other Insulin. Colace (Docusate Sodium) 100 Mg Cap 100 Mg PO BID Bumex (Bumetanide) 1 Mg Tab 1 Mg PO BID Aspirin DR (Aspirin) 81 Mg Tabdr 81 Mg PO DAILY Plavix (Clopidogrel Bisulfate) 75 Mg Tab 75 Mg PO DAILY Tramadol (Tramadol HCl) 50 Mg Tab 50 Mg PO Q8H PRN Atrovent HFA 12.9 GM Inh (Ipratropium Vergas) 17 Mcg/Act Aer 2 Puff INH TID PRN Proventil Hfa 6.7 GM Inh (Albuterol Sulfate) 90 Mcg/Act Aer 2 Puff INH Q4-6H PRN Nitroglycerin SL (Nitroglycerin) 0.4 Mg Subl 0.4 Mg SL DIRECTED PRN ONE TABLET UNDER THE TONGUE NEEDED FOR CHEST PAIN, MAY REPEAT EVERY FIVE MINUTES FOR A TOTAL OF 3 DOSES OR CALL 911 IF NO RELIEF Linzess (Linaclotide) 145 Mcg Cap 145 Mcg PO DAILY PRN Atorvastatin (Atorvastatin Calcium) 80 Mg Tab 80 Mg PO DAILY Omeprazole 20 Mg Tab 20 Mg PO DAILY Allergies: Coded Allergies: Codeine (Verified Allergy, Intermediate, rash, 04/24/16) Penicillin (Verified Allergy, Intermediate, RASH,FEVER, SEIZURE, 04/24/16) Hydromorphone (Verified Adverse Reaction, Intermediate, Nausea/Vomiting, ) very lightheaded *MDRO Multi-Drug Resistant Organism (Verified Adverse Reaction, Unknown, ) MRSA and MDR-E. Coli (leg wound) 04/2015 Active Ordered Medications Current Medications Sodium Chloride (NS 1000 ml Inj) 1,000 ml @ 999 mls/hr BOLUS ONCE IV ; Start 04/24/16 at 09:00; Stop 04/24/16 at 09:10; Status DC Ondansetron HCl (Zofran Inj) 4 mg ONCE ONCE IV PUSH ; Start 04/24/16 at 09:00; Stop 04/24/16 at 09:01; Status DC Ondansetron HCl 4 mg 4 mg STK-MED ONCE .ROUTE Last administered on 04/24/16 09 :17; Start 04/24/16 at 08:52; Stop 04/24/16 at 08:53; Status DC Sodium Chloride 500 ml @ 500 mls/hr BOLUS ONCE IV Last administered on 09:16; Start 04/24/16 at 09:15; Stop 04/24/16 at 10:14; Status DC Sodium Chloride (NS 500 ml Inj) 500 ml @ 500 mls/hr BOLUS ONCE IV Last administered on 04/24/16 09:51; Start 04/24/16 at 10:00; Stop 04/24/16 at 10:59 ; Status DC Insulin Human Regular (NovoLIN R INJ) 10 units ONCE ONCE IVP Last administered on 04/24/16 10:18; Start 04/24/16 at 10:00; Stop 04/24/16 at 10:01 ; Status DC Dextrose (D50w (Vial) Inj) 25 ml UNSCH PRN IV PUSH HYPOGLYCEMIA-SEE COMMENTS; Start 04/24/16 at 10:30 Glucagon (Glucagon Inj) 1 mg UNSCH PRN OTHER HYPOGLYCEMIA-SEE COMMENTS; Start 04/24/16 at 10:30 Insulin Aspart 1 1 ACHS SLIDING SCALE SQ Last administered on 04/24/16 11:46 ; Start 04/24/16 at 11:00 Sodium Chloride (NS 1000 ml Inj) 1,000 ml @ 75 mls/hr [id number] IV Last administered on 04/24/16 11:09; Start 04/24/16 at 10:30 Albuterol Sulfate (Proair Hfa Inh) 2 puff Q6HR PRN INH SHORTNESS OF BREATH; Start 04/24/16 at 12:30; Status UNV Aspirin (Ecotrin Ec) 81 mg DAILY PO ; Start 04/25/16 at 09:00; Status UNV Atorvastatin Calcium (Lipitor) 80 mg DAILY PO ; Start 04/25/16 at 09:00; Status UNV Carvedilol (Coreg) 3.125 mg BID PO ; Start 04/24/16 at 21:00; Status UNV Clopidogrel Bisulfate (Plavix) 75 mg DAILY PO ; Start 04/25/16 at 09:00; Status UNV Insulin Detemir (Levemir Inj) 70 units BID SQ ; Start 04/24/16 at 21:00; Status UNV Ipratropium Vergas (Atrovent Hfa Inh) 2 puff TID PRN INH SHORTNESS OF BREATH; Start 04/24/16 at 12:30; Status UNV Pantoprazole Sodium (Protonix) 20 mg DAILY PO ; Start 04/25/16 at 09:00; Status UNV Family History heart disease in mother side. Social History quit smoking a year ago- doesn't drink. Physical Exam Vital Signs Vital Signs Date Time Temp Pulse Resp B/P Pulse Ox O2 Delivery O2 Flow Rate FiO2 04/24/16 11:10 102 12 107/70 96 Nasal Cannula 2 04/24/16 10:11 93 16 107/54 96 Room Air 04/24/16 09:51 93 16 89/53 96 Nasal Cannula 2 04/24/16 09:17 97.7 93 25 106/59 95 Physical Exam GENERAL: This is a well-nourished, well-developed patient, in no apparent distress. SKIN: No rashes, ecchymoses or lesions. Cool and dry. HEAD: Atraumatic. Normocephalic. No temporal or scalp tenderness. EYES: Pupils equal round and reactive. Extraocular motions intact. No scleral icterus. No injection or drainage. ENT: Nose without bleeding, purulent drainage or septal hematoma. Throat without erythema, tonsillar hypertrophy or exudate. Uvula midline. Airway patent. NECK: Trachea midline. No JVD or lymphadenopathy. Supple, nontender, no meningeal signs. CARDIOVASCULAR: Regular rate and rhythm without murmurs, gallops, or rubs. RESPIRATORY: Clear to auscultation. Breath sounds equal bilaterally. No wheezes , rales, or rhonchi. GASTROINTESTINAL: Abdomen soft, non-tender, nondistended. No hepato-splenomegaly , or palpable masses. No guarding. MUSCULOSKELETAL: Extremities without clubbing, cyanosis, or edema. No joint tenderness, effusion, or edema noted. No calf tenderness. Negative Homans sign bilaterally. NEUROLOGICAL: Awake and alert. Cranial nerves II through XII intact. Motor and sensory grossly within normal limits. Five out of 5 muscle strength in all muscle groups. Normal speech. Laboratory Laboratory Tests Test 04/24/16 04/24/16 09:10 11:00 White Blood Count 13.6 Red Blood Count 5.02 Hemoglobin 13.3 Hematocrit 41.3 Mean Corpuscular Volume 82.3 Mean Corpuscular Hemoglobin 26.6 Mean Corpuscular Hemoglobin 32.2 Concent Red Cell Distribution Width 14.4 Platelet Count 213 Mean Platelet Volume 10.0 Neutrophils (%) (Auto) 80.7 Lymphocytes (%) (Auto) 7.9 Monocytes (%) (Auto) 8.0 Eosinophils (%) (Auto) 3.2 Basophils (%) (Auto) 0.2 Neutrophils # (Auto) 11.0 Lymphocytes # (Auto) 1.1 Monocytes # (Auto) 1.1 Eosinophils # (Auto) 0.4 Basophils # (Auto) 0.0 CBC Comment DIFF FINAL Differential Comment Prothrombin Time 10.3 Prothromb Time International 0.9 Ratio Activated Partial 23.3 Thromboplast Time Sodium Level 130 Potassium Level 4.4 Chloride Level 96 Carbon Dioxide Level 22.6 Anion Gap 11 Blood Urea Nitrogen 34 Creatinine 1.46 Estimat Glomerular Filtration 37 Rate Random Glucose 547 Calcium Level 9.4 Total Bilirubin 0.2 Aspartate Amino Transf 19 (AST/SGOT) Alanine Aminotransferase 24 (ALT/SGPT) Alkaline Phosphatase 126 Total Creatine Kinase 143 Troponin I 0.04 B-Type Natriuretic Peptide 72 Total Protein 7.9 Albumin 3.1 Lipase 341 B-Hydroxybutyrate 0.18 Urine Color LIGHT-YELLOW Urine Turbidity HAZY Urine pH 5.5 Urine Specific [place] 1.017 Urine Protein 30 Urine Glucose (UA) 1000 Urine Ketones NEG Urine Occult Blood SMALL Urine Nitrite NEG Urine Bilirubin NEG Urine Urobilinogen LESS THAN 2.0 Urine Leukocyte Esterase MOD Urine WBC 2 Urine Squamous Epithelial 5 Cells Urine Bacteria OCC Urine Hyaline Casts 1 Microscopic Urinalysis Comment CULT NOT INDICATED Result Diagram: 04/24/16 0910 04/24/16 0910 Imaging Last Impressions Chest X-Ray 04/24/16 0850 Signed Impressions: Service Date/Time: Sunday, April 24, 2016 09:03 - CONCLUSION: Minimal streaky opacity is now noted the lung bases with no effusion. Melo Yarbrough MD EKG; sinus rhythm Assessment and Plan Assessment and Plan A/P - chest pain with history of CAD/ stent placement continue aspirin, plavix, statin and BB- trend the enzymes and consult cardiology ( ) -nausea/ vomiting; antiemetics as needed- continue IV fluid -acute kidney injury; gentle IV hydration; hold diuretics- monitor renal funstion -diabetes mellitus- uncontrolled; resume home insulin regimen- accu-check with SSI -hypertension; resume BB/ hold JAROD-I for now due to kidney injury -DVT prophylaxis with SCD's Discussed Condition With ER physician and the patient. Problem Qualifiers (1) Chest pain: Qualified Code: R07.9 - Chest pain, unspecified type Lizeth Mccray MD Apr 24, 2016 12:37
[2016-04-24] MEDS ORDERED: RESP: IPRATROPIUM 0.5 MG/2.5 ML NEB NEB PRN (13:00)
[2016-04-24] MEDS ORDERED: DIPHENOXYLATE/ATROPINE 2.5 MG/0.025 MG TAB PO ONE (13:45)
--- NOTE | 2016-04-24 18:17 | EKG ---
Date Performed: 04/24/2016 Time Performed: 09:05:49 PTAGE: 60 years EKG: NORMAL Sinus rhythm LEFT ANTERIOR FASCICULAR BLOCK RBBB NO SIGNIFICANT CHANGE SINCE THE PRIOR TRACING PREVIOUS TRACING : 03/22/2016 16.48 DOCTOR: Ruben Sanchez Interpretating Date/Time 04/24/2016 18:15:15
[2016-04-24] MEDS ORDERED: INSULIN DETEMIR 100 UNITS/ML VIAL SQ SCH (21:00)
[2016-04-24] MEDS: INSULIN DETEMIR 100 UNITS/ML VIAL SQ SCH (22:49)
[2016-04-24] MEDS: CARVEDILOL 3.125 MG TAB PO SCH (22:49)
[2016-04-25] VITALS (7 sets, daily range): BP systolic 101–129; BP diastolic 52–68; PULSE 88–119; RESP 16–20; TEMP 96.1–98.1; O2SAT 90–98
[2016-04-25 06:11] LABS: BASOPHIL % 0.2 % (0.0-2.0); EOSINOPHIL # 0.7 TH/MM3 (0-0.4); EOSINOPHIL % 7.4 % (0.0-4.0); HEMATOCRIT 36.6 % (35.0-46.0); HEMO FLAGS DIFF FINAL; LYMPH % 21.6 % (9.0-44.0); LYMPHOCYTE # 2.1 TH/MM3 (1.0-4.8); MEAN CELL VOLUME 82.5 FL (80.0-100.0); MEAN CORPUSCULAR HEMOGLOBIN 26.9 PG (27.0-34.0); MEAN CORPUSCULAR HGB CONC 32.5 % (32.0-36.0); MONO % 9.4 % (0.0-8.0); NEUT % 61.4 % (16.0-70.0); PLATELET COUNT 174 TH/MM3 (150-450); RED BLOOD COUNT 4.43 MIL/MM3 (4.00-5.30); RED CELL DISTRIBUTION WIDTH 14.2 % (11.6-17.2); WHITE BLOOD COUNT 9.7 TH/MM3 (4.0-11.0)
[2016-04-25] MEDS: INSULIN ASPART SUPPLEMENTAL SCALE SQ SCH ×4 (06:21→21:00)
[2016-04-25 06:45] LABS: BICARBONATE 22.4 MEQ/L (21.0-32.0)
[2016-04-25] MEDS: PANTOPRAZOLE SOD 20 MG DELAYED RELEASE TAB PO SCH (08:28)
[2016-04-25] MEDS: MORPHINE SULFATE 4 MG/ML INJ IV PUSH PRN ×2 (08:28→22:04)
[2016-04-25] MEDS: INSULIN DETEMIR 100 UNITS/ML VIAL SQ SCH ×2 (08:28→22:03)
[2016-04-25] MEDS: CLOPIDOGREL 75 MG TAB PO SCH (08:28)
[2016-04-25] MEDS: ASPIRIN EC 81 MG TABEC PO SCH (08:28)
[2016-04-25] MEDS: ATORVASTATIN 80 MG TAB PO SCH (08:28)
--- NOTE | 2016-04-25 08:58 | HHI.PR ---
Subjective Remarks Follow-up for chest pain and gastroenteritis. RN at bedside. The patient complains of chronic back and leg pain today. She states this is due to neuropathy for which she takes gabapentin and [place]. He states that yesterday she was having vomiting and diarrhea all day with associated chest pain. The chest pain lasted for a few hours. She follows with cardiology, Dr. Acosta, who has arranged for stress test today. Objective Vitals Vital Signs Date Time Temp Pulse Resp B/P Pulse Ox O2 Delivery O2 Flow Rate FiO2 04/25/16 06:17 108 04/25/16 05:44 98.1 88 16 101/56 94 04/24/16 21:42 99.1 104 18 118/56 92 04/24/16 18:09 99 04/24/16 15:59 98.2 102 20 106/52 95 04/24/16 14:18 95 16 108/66 96 Room Air 04/24/16 13:41 98 15 92/53 96 Nasal Cannula 2 04/24/16 11:10 102 12 107/70 96 Nasal Cannula 2 04/24/16 10:11 93 16 107/54 96 Room Air 04/24/16 09:51 93 16 89/53 96 Nasal Cannula 2 04/24/16 09:17 97.7 93 25 106/59 95 Result Diagram: 04/25/16 0546 04/25/16 0546 Imaging Last Impressions Chest X-Ray 04/24/16 0850 Signed Impressions: Service Date/Time: Sunday, April 24, 2016 09:03 - CONCLUSION: Minimal streaky opacity is now noted the lung bases with no effusion. Melo Yarbrough MD Objective Remarks GENERAL: Well-developed well-nourished. Morbidly obese. In no acute distress. SKIN: Warm and dry. No lesions noted. HEENT: Normocephalic. Pupils equal and round. Mucous membranes pink and moist. CARDIOVASCULAR: Regular rate and rhythm. No murmur appreciated. RESPIRATORY: No accessory muscle use. Clear to auscultation. Breath sounds equal bilaterally. GASTROINTESTINAL: Abdomen soft, non-tender, nondistended. Bowel sounds x4. MUSCULOSKELETAL: No obvious deformities. No clubbing or cyanosis. No edema. NEUROLOGICAL: Awake and alert. No focal neurological deficits. Moves upper and lower extremities spontaneously. Normal speech. PSYCHIATRIC: Appropriate mood and affect; insight and judgment normal. A/P Problem List: (1) Chest pain ICD Code: R07.9 Status: Acute Assessment and Plan 60-year-old female with past medical history of CAD, CHF, DM who presented with nausea, vomiting, diarrhea, and chest pain Atypical chest pain with history of CAD: Possibly secondary to gastroenteritis as below. Troponin negative 3. Patient's cardiology consulted, stress test ordered. Continue aspirin, Plavix, statin, and beta waldemar. Gastroenteritis: Nausea, vomiting, diarrhea, constipation. Probably viral as leukocytosis has resolved and Tmax 99.1. Supportive care with IVF and antiemetics. Check stool studies continue diarrhea. Acute kidney injury: Creatinine 1.46, previously 0.82 on 03/26/16. Creatinine improved to 0.95 overnight with IVF. Monitor. Hold JAROD inhibitor and spironolactone for now. Diabetes mellitus: Hyperglycemic at admission, possibly reactive from above. Better controlled overnight. Continue home insulin regimen. Accu-Cheks with SSI. DVT prophylaxis: SCDs Written by Parker Ortiz, acting as scribe for Dr. Benjamin on 04/25/16 at 08:57. The documentation accurately reflects the work performed [id number] by me on at 08:57. Discharge Planning Follow-up results of stress test today and monitor for clinical improvement. Problem Qualifiers (1) Chest pain: Qualified Code: R07.9 - Chest pain, unspecified type Parker Ortiz Apr 25, 2016 08:57 Rose Benjamin DO Apr 25, 2016 20:16
[2016-04-25] MEDS: CARVEDILOL 3.125 MG TAB PO SCH ×2 (09:00→22:03)
[2016-04-25] MEDS ORDERED: REGADENOSON INJ 0.4 MG/5 ML SYR ONE (10:28)
--- NOTE | 2016-04-25 11:19 | RADRPT ---
EXAM DATE/TIME: 04/25/2016 09:05 [facility] COMPARISON: CHEST SINGLE AP, April 24, 2016, 9:03. CHEST SINGLE AP, August 19, 2014, 9:53. MYOCARDIAL PERF PHA RM SPECT, GATED W/EF, July 15, 2013, 10:23. INDICATIONS : Substernal chest pain with nausea and vomiting. Coronary artery disease. Cardiomegaly DOSE: 35.0 mCi Tc99m Myoview at stress. 11.0 mCi Tc99m Myoview at rest. 0.4 mg Lexiscan STRESS SYMPTOMS: Nausea and warm feeling. EJECTION FRACTION: 18% MEDICAL HISTORY : Myocardial infarction. Diabetes mellitus type 2. Hypercholesterolemia. Hypertension. GERD. Renal fail ure. SURGICAL HISTORY : Cholecystectomy. Tubal ligation. Tonsillectomy. ENCOUNTER: Initial ACUITY: 1 day PAIN SCALE: 4/10 LOCATION: Substernal chest TECHNIQUE: The patient underwent pharmacologic stress with infusion of prescribed dose. Continuous ECG tracing was monitored during stress. Gated SPECT imaging was performed after stress and conventional SPECT i maging was performed at rest. The examination was performed on a SPECT/CT scanner, both attenuation and non-corrected datasets were reviewed. FINDINGS: DISTRIBUTION: The maximum perfused segment at stress is in the anterior wall. PERFUSION STUDY: There is a large severe fixed inferior and inferior lateral wall defect with no reversibility. GATED STUDY: There is akinesis involving the inferior wall with diffuse global hypokinesis involving the remaining acosta. CONCLUSION: 1. Large fixed inferior and inferior lateral wall defect with no reversibility. 2. Significantly decreased calculated ejection fraction of 18% with akinesia involving the inferior w all and diffuse global hypokinesis involving the other segments. RISK CATEGORY: High (>3% Annual Mortality Rate) Melo Yarbrough MD on April 25, 2016 at 11:11 Board Certified Radiologist. This report was verified electronically.
[2016-04-25 13:59] LABS: C. DIFF EPI 027 PRESUMPTIVE NEGATIVE (NEGATIVE); C. DIFF TOXIN PCR NEGATIVE (NEGATIVE)
[2016-04-25] MEDS ORDERED: LOPERAMIDE HCL 2 MG CAP PO PRN (16:30)
[2016-04-25] MEDS: SODIUM CHLOR 0.9% 1000 ML INJ 1,000 ML IV SCH (22:03)
[2016-04-26 00:51] VITALS: BP 136/82; PULSE 90; RESP 20; TEMP 97.6; O2SAT 99
[2016-04-26 02:55] VITALS: PULSE 90
[2016-04-26] MEDS: MORPHINE SULFATE 4 MG/ML INJ IV PUSH PRN ×2 (03:30→09:43)
[2016-04-26 05:01] VITALS: BP 100/63; PULSE 89; RESP 20; TEMP 97.6; O2SAT 95
[2016-04-26] MEDS: INSULIN ASPART SUPPLEMENTAL SCALE SQ SCH ×2 (06:12→11:00)
[2016-04-26 08:00] VITALS: BP 122/70; PULSE 84; PULSE 85; RESP 16; TEMP 97.3; O2SAT 97
[2016-04-26] MEDS: ATORVASTATIN 80 MG TAB PO SCH (09:32)
[2016-04-26] MEDS: PANTOPRAZOLE SOD 20 MG DELAYED RELEASE TAB PO SCH (09:32)
[2016-04-26] MEDS: ASPIRIN EC 81 MG TABEC PO SCH (09:32)
[2016-04-26] MEDS: CARVEDILOL 3.125 MG TAB PO SCH (09:32)
[2016-04-26] MEDS: CLOPIDOGREL 75 MG TAB PO SCH (09:32)
[2016-04-26] MEDS: INSULIN DETEMIR 100 UNITS/ML VIAL SQ SCH (09:36)
[2016-04-26] MEDS ORDERED: ONDA4TAB7 SL (10:24)
--- NOTE | 2016-04-26 10:31 | HHI.PR ---
Subjective Remarks Follow-up for chest pain. Discussed over the phone with Dr. Acosta, patient is cleared from cardiology perspective for discharge and outpatient follow-up. The patient feels much better today. She is happy to go home. She denies any nausea or vomiting and is tolerating diet. Objective Vitals Vital Signs Date Time Temp Pulse Resp B/P Pulse Ox O2 Delivery O2 Flow Rate FiO2 04/26/16 08:00 97.3 85 16 122/70 97 04/26/16 05:01 97.6 89 20 100/63 95 04/26/16 02:55 90 04/26/16 00:51 97.6 90 20 136/82 99 04/25/16 22:24 20 04/25/16 20:36 98.0 105 20 121/68 98 04/25/16 17:22 96.1 93 18 129/57 90 04/25/16 15:00 119 04/25/16 12:50 96.2 95 18 120/52 95 I/O 04/25/16 04/25/16 04/25/16 04/26/16 04/26/16 04/26/16 07:00 15:00 23:00 07:00 15:00 23:00 # Voids 1 Result Diagram: 04/25/16 0546 04/25/16 0546 Imaging Last Impressions Myocardial Perfusion Scan Nuc Med 04/25/16 0000 Signed Impressions: Service Date/Time: Monday, April 25, 2016 09:05 - CONCLUSION: 1. Large fixed inferior and inferior lateral wall defect with no reversibility. 2. Significantly decreased calculated ejection fraction of 18%% with akinesia involving the inferior wall and diffuse global hypokinesis involving the other segments. RISK CATEGORY: High (>3%% Annual Mortality Rate) Melo Yarbrough MD Chest X-Ray 04/24/16 0850 Signed Impressions: Service Date/Time: Sunday, April 24, 2016 09:03 - CONCLUSION: Minimal streaky opacity is now noted the lung bases with no effusion. Melo Yarbrough MD Objective Remarks GENERAL: Well-developed well-nourished. Morbidly obese. In no acute distress. SKIN: Warm and dry. No lesions noted. HEENT: Normocephalic. Pupils equal and round. Mucous membranes pink and moist. CARDIOVASCULAR: Regular rate and rhythm. No murmur appreciated. RESPIRATORY: No accessory muscle use. Clear to auscultation. Breath sounds equal bilaterally. GASTROINTESTINAL: Abdomen soft, non-tender, nondistended. Bowel sounds x4. MUSCULOSKELETAL: No obvious deformities. No clubbing or cyanosis. No edema. NEUROLOGICAL: Awake and alert. No focal neurological deficits. Moves upper and lower extremities spontaneously. Normal speech. PSYCHIATRIC: Appropriate mood and affect; insight and judgment normal. A/P Problem List: (1) Chest pain ICD Code: R07.9 Status: Acute Assessment and Plan 60-year-old female with past medical history of CAD, CHF, DM who presented with nausea, vomiting, diarrhea, and chest pain Atypical chest pain with history of CAD: Possibly secondary to gastroenteritis as below. Troponin negative 3. Patient's cardiology consulted, stress test performed, chronic ischemic changes and decreased EF, no reversibility to suggest acute ischemia. Continue aspirin, Plavix, statin, and beta waldemar. Gastroenteritis: Nausea, vomiting, diarrhea, constipation. Probably viral as leukocytosis has resolved and Tmax 99.1. Improved spontaneously. Received supportive care with IVF and antiemetics. Stool studies negative. Acute kidney injury: Creatinine 1.46, previously 0.82 on 03/26/16. Secondary to dehydration from gastroenteritis as above. Creatinine improved to 0.95 with IVF. Held JAROD inhibitor and diuretic, can resume now because her creatinine has improved. Diabetes mellitus: Hyperglycemic at admission, possibly reactive from above. Better controlled overnight. Continue home insulin regimen. Accu-Cheks with SSI. DVT prophylaxis: SCDs. Discussed with Dr. Acosta (Cardiology). Written by Parker Ortiz, acting as scribe for Dr. Benjamin on 04/26/16 at 10:31. The documentation accurately reflects the work performed [id number] by me on at 10:31. Discharge Planning Discharge patient to home Condition on discharge: Improved Heart healthy diabetic Diet as tolerated Regular activity Rx written: Dalilafran Follow-up with primary care physician and cardiology Problem Qualifiers (1) Chest pain: Qualified Code: R07.9 - Chest pain, unspecified type Parker Ortiz Apr 26, 2016 10:31 Rose Benjamin DO Apr 26, 2016 22:45
--- NOTE | 2016-04-26 12:15 | HHI.DS ---
Discharge Summary Admission Date Apr 24, 2016 at 10:27 Discharge Date: Apr 26, 2016 Admitting Diagnosis chest pain. Acute kidney injury. Hyperglycemia. Dehydration (1) Chest pain ICD Code: R07.9 Diagnosis: Principal (2) Gastroenteritis ICD Code: K52.9 Diagnosis: Secondary Procedures none Brief History - From Admission patient is a 60 y/o female with history of CAD- s/p stent placement, diabetes and hypertension who presented to ER with chest pain. she describes the pain as ' someone is sitting on my chest '. pain has no radiation and is associated with persistent nausea and vomiting. she says that this is the type of the pain that she had heart attack three years ago. chest pain is midsternal. she says that she saw just two days ago but ' everything was ok at that time'. CBC/BMP: 04/25/16 0546 04/25/16 0546 Significant Findings Laboratory Tests Test 04/24/16 04/24/16 04/25/16 09:10 11:00 05:46 White Blood Count 13.6 TH/MM3 (4.0-11.0) Mean Corpuscular Hemoglobin 26.6 PG 26.9 PG (27.0-34.0) (27.0-34.0) Neutrophils (%) (Auto) 80.7 % (16.0-70.0) Lymphocytes (%) (Auto) 7.9 % (9.0-44.0) Neutrophils # (Auto) 11.0 TH/MM3 (1.8-7.7) Monocytes # (Auto) 1.1 TH/MM3 (0-0.9) Activated Partial 23.3 SEC Thromboplast Time (24.3-30.1) Sodium Level 130 MEQ/L (136-145) Chloride Level 96 MEQ/L (98-107) Blood Urea Nitrogen 34 MG/DL (7-18) 43 MG/DL (7-18) Creatinine 1.46 MG/DL (0.50-1.00) Estimat Glomerular Filtration 37 ML/MIN (>89) 60 ML/MIN (>89) Rate Random Glucose 547 MG/DL 157 MG/DL (74-106) (74-106) Alkaline Phosphatase 126 U/L (45-117) Albumin 3.1 GM/DL (3.4-5.0) Urine Turbidity HAZY (CLEAR) Urine Protein 30 mg/dL (NEG-TRACE) Urine Glucose (UA) 1000 mg/dL (NEG) Urine Occult Blood SMALL (NEG) Urine Leukocyte Esterase MOD (NEG) Urine Bacteria OCC /hpf (NONE) Monocytes (%) (Auto) 9.4 % (0.0-8.0) Eosinophils (%) (Auto) 7.4 % (0.0-4.0) Eosinophils # (Auto) 0.7 TH/MM3 (0-0.4) Imaging Last Impressions Myocardial Perfusion Scan Nuc Med 04/25/16 0000 Signed Impressions: Service Date/Time: Monday, April 25, 2016 09:05 - CONCLUSION: 1. Large fixed inferior and inferior lateral wall defect with no reversibility. 2. Significantly decreased calculated ejection fraction of 18%% with akinesia involving the inferior wall and diffuse global hypokinesis involving the other segments. RISK CATEGORY: High (>3%% Annual Mortality Rate) Melo Yarbrough MD Chest X-Ray 04/24/16 0850 Signed Impressions: Service Date/Time: Sunday, April 24, 2016 09:03 - CONCLUSION: Minimal streaky opacity is now noted the lung bases with no effusion. Melo Yarbrough MD PE at Discharge GENERAL: Well-developed well-nourished. Morbidly obese. In no acute distress. SKIN: Warm and dry. No lesions noted. HEENT: Normocephalic. Pupils equal and round. Mucous membranes pink and moist. CARDIOVASCULAR: Regular rate and rhythm. No murmur appreciated. RESPIRATORY: No accessory muscle use. Clear to auscultation. Breath sounds equal bilaterally. GASTROINTESTINAL: Abdomen soft, non-tender, nondistended. Bowel sounds x4. MUSCULOSKELETAL: No obvious deformities. No clubbing or cyanosis. No edema. NEUROLOGICAL: Awake and alert. No focal neurological deficits. Moves upper and lower extremities spontaneously. Normal speech. PSYCHIATRIC: Appropriate mood and affect; insight and judgment normal. Hospital Course 60-year-old female with past medical history of CAD, CHF, DM who presented with nausea, vomiting, diarrhea, and chest pain Atypical chest pain with history of CAD: Possibly secondary to gastroenteritis as below. Troponin negative 3. Patient's cardiology consulted, stress test performed, chronic ischemic changes and decreased EF, no reversibility to suggest acute ischemia. Continue aspirin, Plavix, statin, and beta waldemar. Follow-up with cardiology as outpatient. Gastroenteritis: Nausea, vomiting, diarrhea, constipation. Probably viral as leukocytosis has resolved and Tmax 99.1. Improved spontaneously. Received supportive care with IVF and antiemetics. Stool studies negative. Acute kidney injury: Creatinine 1.46, previously 0.82 on 03/26/16. Secondary to dehydration from gastroenteritis as above. Creatinine improved to 0.95 with IVF. Held JAROD inhibitor and diuretic, can resume now because her arthritis has improved. Diabetes mellitus: Hyperglycemic at admission, possibly reactive from above. Better controlled overnight. Continue home insulin regimen. Pt Condition on Discharge: Stable Discharge Disposition: Discharge Home Discharge Time: > 30 minutes Discharge Instructions DIET: Follow Instructions for: Heart Healthy Diet, Diabetic Diet Activities you can perform: Regular-No Restrictions Follow up Referrals: Cardiology - 3 Weeks with Constanza Acosta MD PCP Follow-up - 1 Week with Sean Silva DO New Medications: Ondansetron Odt (Ondansetron Odt) 4 Mg Tab 4 MG SL Q6HR PRN Nausea/Vomiting #10 Ref 0 TAB Continued Medications: Albuterol 6.7 GM Inh (Proventil Hfa 6.7 GM Inh) 90 Mcg/Act Aer 2 PUFF INH Q4-6H PRN SHORTNESS OF BREATH #1 Ref [address] (Aspirin DR) 81 Mg Tabdr 81 MG PO DAILY Ref 0 TAB Atorvastatin (Atorvastatin) 80 Mg Tab 80 MG PO DAILY Cholesterol Management #30 Ref 0 TAB Bumetanide (Bumex) 1 Mg Tab 1 MG PO BID Ref 0 TAB Carvedilol (Coreg) 3.125 Mg Tab 3.125 MG PO BID heart #60 Ref 0 TAB Clopidogrel (Plavix) 75 Mg Tab 75 MG PO DAILY Blood Clot Prevention #30 Ref 0 TAB Gabapentin (Gabapentin) 300 Mg Cap 300 MG PO TID Pain Management #90 Ref 0 CAP Insulin Detemir Inj (Levemir Inj) 1,000 unit/ 10 ML Vial 70 UNITS SQ BID Do not mix with any other Insulin. Blood Sugar Management Ref 0 VIAL Ipratropium HFA 12.9 GM Inh (Atrovent HFA 12.9 GM Inh) 17 Mcg/Act Aer 2 PUFF INH TID PRN SHORTNESS OF BREATH #1 Ref 0 INHALER Lisinopril (Lisinopril) 10 Mg Tab 10 MG PO DAILY heart Days 30 TAB Nitroglycerin SL (Nitroglycerin SL) 0.4 Mg Subl 0.4 MG SL DIRECTED ONE TABLET UNDER THE TONGUE NEEDED FOR CHEST PAIN, MAY REPEAT EVERY FIVE MINUTES FOR A TOTAL OF 3 DOSES OR CALL 911 IF NO RELIEF PRN CHEST PAIN #100 Ref 0 TAB.SL Omeprazole (Omeprazole) 20 Mg Tab 20 MG PO DAILY #30 Ref 0 TAB Spironolactone (Spironolactone) 25 Mg Tab 25 MG PO BIDPC heart #60 Ref 0 TAB Tramadol (Tramadol) 50 Mg Tab 50 MG PO Q8H PRN PAIN Ref 0 TAB Discontinued Medications: Docusate Sodium (Colace) 100 Mg Cap 100 MG PO BID Constipation #60 Ref 0 CAP Linaclotide (Linzess) 145 Mcg Cap 145 MCG PO DAILY PRN CONSTIPATION Ref 0 CAP Parker Ortiz Apr 26, 2016 12:15 Rose Benjamin DO Apr 26, 2016 22:46
== END 2016-04-26 15:15 | disposition home or self-care (01) ==
LOC: NEPC 08:39 → NEDA 10:27 → NEPGCP 15:31
PROVIDERS: ADMIT Hospitalist; ATTEND Hospitalist
DX: R07.9 Chest pain, unspecified (principal); K52.9 Noninfective gastroenteritis and colitis, unspecified; N17.9 Acute kidney failure, unspecified; E86.0 Dehydration; I25.10 Atherosclerotic heart disease of native coronary artery without angina pectoris; I10 Essential (primary) hypertension; I50.22 Chronic systolic (congestive) heart failure; I25.5 Ischemic cardiomyopathy; E11.65 Type 2 diabetes mellitus with hyperglycemia; K59.00 Constipation, unspecified; G62.9 Polyneuropathy, unspecified; M54.9 Dorsalgia, unspecified; M79.606 Pain in leg, unspecified; G89.29 Other chronic pain; E78.5 Hyperlipidemia, unspecified; E87.1 Hypo-osmolality and hyponatremia; I25.2 Old myocardial infarction; K21.9 Gastro-esophageal reflux disease without esophagitis; J44.9 Chronic obstructive pulmonary disease, unspecified; G47.30 Sleep apnea, unspecified; E78.00 Pure hypercholesterolemia, unspecified; M19.90 Unspecified osteoarthritis, unspecified site; Z79.4 Long term (current) use of insulin; Z95.5 Presence of coronary angioplasty implant and graft; Z87.891 Personal history of nicotine dependence; Z82.49 Family history of ischemic heart disease and other diseases of the circulatory system
CPT/HCPCS: 71010; 76937; 78452; 80048; 80053; 81001; 82010; 82550; 82948; 83690; 83880; 84484; 85025; 85610; 85730; 87493; 87506; 87641; 93005; 93017; 96361; 96374; 96375; 99285; A9502; G0378; J1815; J2270; J2405; J2785; J7030; J7040

== ENCOUNTER 2016-06-18 10:16 | Inpatient (IN) | payer MEDICAID ==
[2016-06-18] VITALS (9 sets, daily range): BP systolic 112–173; BP diastolic 66–94; PULSE 67–104; RESP 18–30; TEMP 97.6–98.2; O2SAT 92–98
[~2016-06-18] VITALS: Ht 157.5 cm; Wt 119.7 kg
[~2016-06-18 10:16] MED LIST changes: -ASPI81CH CHEW; +ASPI81TA67 PO; -BUME1TAB PO; +BUME1TAB26 PO; -DOCU1CAP39 PO; -HUMALOG SQ; -LANTUS2P SQ; +LEVEMIR SQ; -LINA145C PO; +ONDA4TAB7 SL; -SIME80CH CHEW
[2016-06-18] MEDS: RESP: ALBUTEROL 2.5 MG/IPRATROPIUM 0.5 MG NEB (SCH) INH ×3 (10:37→10:39)
[2016-06-18] MEDS ORDERED: methylPREDNISolone SOD SUCC 125 MG/2 ML VIAL IVP ONE (10:45)
[2016-06-18] MEDS ORDERED: SODIUM CHLORIDE 0.9% FLUSH 10 ML FLUSH IVF PRN (10:45)
[2016-06-18 10:47] LABS: BLOOD GAS CARBOXYHEMOGLOBIN 1.7 % (0-4); BLOOD GAS HCO3 27 mmol/L (22-26); BLOOD GAS METHEMOGLOBIN 0.6 % (0-2); BLOOD GAS O2 HGB SATURATION 94 % (90-100); BLOOD GAS OXYGEN CONTENT 14.7 Vol % (12.0-20.0); BLOOD GAS PCO2 41 mmHg (38-42); BLOOD GAS PO2 81 mmHG (61-120); TEMP CORR TO 98.6
[2016-06-18 10:48] LABS: CRITICAL VALUE NO; DRAW SITE LT RADIAL; LITER FLOW 3 L/M; NUMBER OF ARTERIAL PUNCTURES 1; OXYGEN DEVICE NASAL CANNULA; STAT YES; ULNAR PULSE PRESENT
--- NOTE | 2016-06-18 11:13 | RADRPT ---
EXAM DATE/TIME: 06/18/2016 10:38 [facility] COMPARISON: CHEST SINGLE AP, April 24, 2016, 9:03. INDICATIONS : Shortness of breath, with wheezing and congestion. MEDICAL HISTORY : Chronic obstructive pulmonary disease. Myocardial infarction. Asthma SURGICAL HISTORY : Coronary artery stent. ENCOUNTER: Initial ACUITY: 1 day PAIN SCORE: 0/10 LOCATION: Bilateral chest FINDINGS: Portable AP view of the chest demonstrates cardiac silhouette size at the upper limits for normal. Th ere is airspace opacity in the mid and lower lung zones bilaterally along with pleural based opacitie s. No pneumothorax is visualized. Bones and soft tissues demonstrate no acute finding. CONCLUSION: 1. Bilateral mid and lower lung zone airspace opacity was suspected small bilateral pleural effusions . These findings could represent pulmonary edema in the appropriate clinical setting. 2. Cardiac silhouette size is at the upper limits for normal. Myles Thomas MD on June 18, 2016 at 11:11 Board Certified Radiologist. This report was verified electronically.
[2016-06-18 11:39] LABS: ALKALINE PHOSPHATASE 115 U/L (45-117); ALT (GPT) 14 U/L (10-53); ANION GAP 9 MEQ/L (5-15); AST (GOT) 23 U/L (15-37); BICARBONATE 27.8 MEQ/L (21.0-32.0); BLOOD UREA NITROGEN 17 MG/DL (7-18); CHLORIDE 103 MEQ/L (98-107); CREATINE KINASE 249 U/L (26-192); GLOMERULAR FILTRATION RATE 72 ML/MIN (>89); MAGNESIUM 1.9 MG/DL (1.5-2.5); POTASSIUM 4.3 MEQ/L (3.5-5.1); SODIUM (NA) 140 MEQ/L (136-145); TOTAL BILIRUBIN ADULT 0.3 MG/DL (0.2-1.0)
[2016-06-18 12:01] LABS: AUTOMATED NEUTROPHIL # 7.1 TH/MM3 (1.8-7.7); BASOPHIL # 0.1 TH/MM3 (0-0.2); BASOPHIL % 0.6 % (0.0-2.0); EOSINOPHIL # 0.4 TH/MM3 (0-0.4); EOSINOPHIL % 3.5 % (0.0-4.0); HEMATOCRIT 32.1 % (35.0-46.0); HEMO FLAGS DIFF FINAL; LYMPH % 19.3 % (9.0-44.0); MEAN CELL VOLUME 80.2 FL (80.0-100.0); MEAN CORPUSCULAR HEMOGLOBIN 26.6 PG (27.0-34.0); MEAN CORPUSCULAR HGB CONC 33.2 % (32.0-36.0); MONO % 6.6 % (0.0-8.0); PLATELET COUNT 263 TH/MM3 (150-450); RED CELL DISTRIBUTION WIDTH 15.2 % (11.6-17.2); WHITE BLOOD COUNT 10.1 TH/MM3 (4.0-11.0)
[2016-06-18 12:09] LABS: APTT (PATIENT) 25.5 SEC (24.3-30.1); PROTHROMBIN TIME - PATIENT 10.7 SEC (9.8-11.6)
[2016-06-18 12:11] LABS: BACTERIA, URINE RARE /hpf; BLOOD, URINE SMALL (NEG); COMMENT (UR) CULT NOT INDICATED; CULTURE IF INDICATED CULT NOT INDICATED; GLUCOSE,URINE 1000 mg/dL (NEG); KETONE, URINE NEG (NEG); MUCUS URINE FEW /lpf (OCC); NITRITE,URINE NEG (NEG); SQUAMOUS EPITHELIAL CELL URINE 3 /hpf (0-5); URINE COLOR LIGHT-YELLOW (YELLW/STRAW)
[2016-06-18] MEDS ORDERED: AZITHROMYCIN INJ 500 MG in SODIUM CHLOR 0.9% 250 ML INJ 250 ML IV ONE (12:45)
[2016-06-18] MEDS ORDERED: cefTRIAXone INJ 1,000 MG in SODIUM CHLORIDE 0.9% INJ 100 ML IV ONE ×2 (12:45→15:00)
--- NOTE | 2016-06-18 12:52 | PD ---
HPI Chief Complaint: Respiratory Symptoms Time Seen by Provider: 10:32 Travel History International Travel<30 days: No Contact w/Intl Traveler<30days: No History of Present Illness HPI 60-year-old female arrives due to shortness of breath. She reports about 3 days of shortness of breath much worse today. She has also had a cough. The patient suffers with CHF. She reports compliance with all medications. A myocardial perfusion scan from about 1-1/2 months prior reveals an ejection fraction of 18%. She additionally reports pain from the waist down involving both legs which has been gradually worsening. Evidently she's had increasing swelling of the bilateral lower extremities as well. PFSH Past Medical History Hx Anticoagulant Therapy: Yes (PLAVIX) Arthritis: Yes Asthma: No Autoimmune Disease: No Blood Disorders: No Anxiety: No Depression: Yes Heart Rhythm Problems: No Cancer: No Cardiac Catheterization: Yes (2 STENTS 2012/XIMENA) Cardiovascular Problems: Yes (STENTS / HYPERTENSION) High Cholesterol: Yes Chemotherapy: No Chest Pain: Yes Congestive Heart Failure: Yes COPD: Yes Cerebrovascular Accident: No Coronary Artery Disease: Yes Diabetes: Yes Diminished Hearing: No Deep Vein Thrombosis: Yes Endocrine: Yes Gastrointestinal Disorders: Yes GERD: Yes Genitourinary: Yes Hepatitis: No Hiatal Hernia: No Heparin Induced Thrombocytopen: No Hypertension: Yes Immune Disorder: No Implanted Vascular Access Dvce: No Kidney Stones: No Musculoskeletal: Yes Neurologic: Yes Psychiatric: Yes Reproductive: No Respiratory: Yes Immunizations Current: Yes Migraines: Yes Myocardial Infarction: Yes (X2 2012) Radiation Therapy: No Renal Failure: Yes (dialysis x 1 day last week in [facility]) Seizures: No Sickle Cell Disease: No Sleep Apnea: Yes (no bipap ) Thyroid Disease: No Ulcer: No Menopausal: Yes : 2 Para: 2 Tubal Ligation: Yes Past Surgical History Abdominal Surgery: Yes (gallbladder remmoved) AICD: No Appendectomy: No Arteriovenous Shunt: No Body Medical Devices: STENTS Cardiac Surgery: No Cholecystectomy: Yes Ear Surgery: No Endocrine Surgery: No Eye Surgery: Yes (lasix surgery bilat ) Genitourinary Surgery: No Gynecologic Surgery: No Insulin Pump: No Joint Replacement: No Neurologic Surgery: No Oral Surgery: No Pacemaker: No Thoracic Surgery: No Tonsillectomy: Yes Other Surgery: Yes (HEART CATH. PT STATES SHE HAS STENTS) Social History Alcohol Use: No Tobacco Use: No (quit 1 year 2014) Substance Use: No Allergies-Medications (Allergen,Severity, Reaction): Coded Allergies: Codeine (Verified Allergy, Intermediate, rash, 04/24/16) Penicillin (Verified Allergy, Intermediate, RASH,FEVER, SEIZURE, 04/24/16) Hydromorphone (Verified Adverse Reaction, Intermediate, Nausea/Vomiting, ) very lightheaded *MDRO Multi-Drug Resistant Organism (Verified Adverse Reaction, Unknown, Cleared 04/25/16, 04/26/16) MRSA (leg wound) 04/2015 MRSA PCR screen NEGATIVE - 03/26/16 & 04/25/16 Cleared per Infection Control Reported Meds & Prescriptions Reported Meds & Active Scripts Active Ondansetron Odt 4 Mg Tab 4 Mg SL Q6HR PRN Spironolactone 25 Mg Tab 25 Mg PO BIDPC Lisinopril 10 Mg Tab 10 Mg PO DAILY 30 Days Coreg (Carvedilol) 3.125 Mg Tab 3.125 Mg PO BID Gabapentin 300 Mg Cap 300 Mg PO TID Reported Levemir Inj (Insulin Detemir) 1,000 unit/ 10 ML Vial 70 Units SQ BID Do not mix with any other Insulin. Bumex (Bumetanide) 1 Mg Tab 1 Mg PO BID Aspirin DR (Aspirin) 81 Mg Tabdr 81 Mg PO DAILY Plavix (Clopidogrel Bisulfate) 75 Mg Tab 75 Mg PO DAILY Tramadol (Tramadol HCl) 50 Mg Tab 50 Mg PO Q8H PRN Atrovent HFA 12.9 GM Inh (Ipratropium Rindge) 17 Mcg/Act Aer 2 Puff INH TID PRN Proventil Hfa 6.7 GM Inh (Albuterol Sulfate) 90 Mcg/Act Aer 2 Puff INH Q4-6H PRN Nitroglycerin SL (Nitroglycerin) 0.4 Mg Subl 0.4 Mg SL DIRECTED PRN ONE TABLET UNDER THE TONGUE NEEDED FOR CHEST PAIN, MAY REPEAT EVERY FIVE MINUTES FOR A TOTAL OF 3 DOSES OR CALL 911 IF NO RELIEF Atorvastatin (Atorvastatin Calcium) 80 Mg Tab 80 Mg PO DAILY Omeprazole 20 Mg Tab 20 Mg PO DAILY Review of Systems Except as stated in HPI: all other systems reviewed are Neg Physical Exam Narrative GENERAL: 60-year-old female moderate respiratory distress SKIN: Focused skin assessment warm/dry. HEAD: Atraumatic. Normocephalic. EYES: Pupils equal and round. No scleral icterus. No injection or drainage. ENT: No nasal bleeding or discharge. Mucous membranes pink and moist. NECK: Trachea midline. No JVD. CARDIOVASCULAR: Tachycardia. Regular RESPIRATORY: Wheezing and dyspnea. Tachypnea also present. GASTROINTESTINAL: Abdomen soft, non-tender, nondistended. Hepatic and splenic margins not palpable. MUSCULOSKELETAL: No obvious deformities. No clubbing. No cyanosis. 1+ pitting edema of the bilateral lower extremities without induration or erythema. NEUROLOGICAL: Awake and alert. No obvious cranial nerve deficits. Motor grossly within normal limits. Normal speech. PSYCHIATRIC: Appropriate mood and affect; insight and judgment normal. Data Data Last Documented VS Vital Signs Date Time Temp Pulse Resp B/P Pulse Ox O2 Delivery O2 Flow Rate FiO2 06/18/16 11:00 101 30 116/68 95 3 06/18/16 10:37 Nasal Cannula 06/18/16 10:20 97.9 Vital signs reviewed Orders Complete Blood Count With Diff (06/18/16 10:32) Comprehensive Metabolic Panel (06/18/16 10:32) B-Type Natriuretic Peptide (06/18/16 10:32) Act Partial Throm Time (Ptt) (06/18/16 10:32) Prothrombin Time / Inr (Pt) (06/18/16 10:32) Magnesium (Mg) (06/18/16 10:32) Ckmb (Isoenzyme) Profile (06/18/16 10:32) Troponin I (06/18/16 10:32) Arterial Blood Gas (Abg) (06/18/16 10:32) Urinalysis - C+S If Indicated (06/18/16 10:32) Iv Access Insert/Monitor (06/18/16 10:32) Electrocardiogram (06/18/16 10:32) Ecg Monitoring (06/18/16 10:32) Oximetry (06/18/16 10:32) Oxygen Administration (06/18/16 10:32) Chest, Single Ap (06/18/16 10:32) Cath For Specimen (06/18/16 10:32) Sodium Chloride 0.9% Flush (Ns Flush) (06/18/16 10:45) Methylprednisolone So Succ Inj (Solumedr (06/18/16 10:45) Albuterol-Ipratropium Neb (Duoneb Neb) (06/18/16 10:45) CKMB (06/18/16 10:40) CKMB% (06/18/16 10:40) Ceftriaxone Inj (Rocephin Inj) (06/18/16 12:45) Azithromycin Inj (Zithromax Inj) (06/18/16 12:45) Admit Order (Ed Use Only) (06/18/16 13:15) Labs Laboratory Tests Test 06/18/16 06/18/16 06/18/16 10:40 11:40 11:55 Blood Gas Puncture Site LT RADIAL Blood Gas Patient Temperature 98.6 Blood Gas HCO3 27 mmol/L Blood Gas Base Excess 3.0 mmol/L Blood Gas Oxygen Saturation 94 % Arterial Blood pH 7.44 Arterial Blood Partial 41 mmHg Pressure CO2 Arterial Blood Partial 81 mmHG Pressure O2 Arterial Blood Oxygen Content 14.7 Vol % Arterial Blood 1.7 % Carboxyhemoglobin Arterial Blood Methemoglobin 0.6 % Blood Gas Hemoglobin 11.0 G/DL Oxygen Delivery Device NASAL CANNULA Blood Gas Liter Flow 3 L/M Sodium Level 140 MEQ/L Potassium Level 4.3 MEQ/L Chloride Level 103 MEQ/L Carbon Dioxide Level 27.8 MEQ/L Anion Gap 9 MEQ/L Blood Urea Nitrogen 17 MG/DL Creatinine 0.82 MG/DL Estimat Glomerular Filtration 72 ML/MIN Rate Random Glucose 232 MG/DL Calcium Level 9.0 MG/DL Magnesium Level 1.9 MG/DL Total Bilirubin 0.3 MG/DL Aspartate Amino Transf 23 U/L (AST/SGOT) Alanine Aminotransferase 14 U/L (ALT/SGPT) Alkaline Phosphatase 115 U/L Total Creatine Kinase 249 U/L Creatine Kinase MB 5.0 NG/ML Creatine Kinase MB % 2.0 % Troponin I LESS THAN 0.02 NG/ML Total Protein 7.5 GM/DL Albumin 2.8 GM/DL White Blood Count 10.1 TH/MM3 Red Blood Count 4.00 MIL/MM3 Hemoglobin 10.6 GM/DL Hematocrit 32.1 % Mean Corpuscular Volume 80.2 FL Mean Corpuscular Hemoglobin 26.6 PG Mean Corpuscular Hemoglobin 33.2 % Concent Red Cell Distribution Width 15.2 % Platelet Count 263 TH/MM3 Mean Platelet Volume 8.6 FL Neutrophils (%) (Auto) 70.0 % Lymphocytes (%) (Auto) 19.3 % Monocytes (%) (Auto) 6.6 % Eosinophils (%) (Auto) 3.5 % Basophils (%) (Auto) 0.6 % Neutrophils # (Auto) 7.1 TH/MM3 Lymphocytes # (Auto) 2.0 TH/MM3 Monocytes # (Auto) 0.7 TH/MM3 Eosinophils # (Auto) 0.4 TH/MM3 Basophils # (Auto) 0.1 TH/MM3 CBC Comment DIFF FINAL Differential Comment Prothrombin Time 10.7 SEC Prothromb Time International 1.0 RATIO Ratio Activated Partial 25.5 SEC Thromboplast Time B-Type Natriuretic Peptide 253 PG/ML Urine Color LIGHT-YELLOW Urine Turbidity CLEAR Urine pH 7.0 Urine Specific [place] 1.011 Urine Protein 100 mg/dL Urine Glucose (UA) 1000 mg/dL Urine Ketones NEG mg/dL Urine Occult Blood SMALL Urine Nitrite NEG Urine Bilirubin NEG Urine Urobilinogen LESS THAN 2.0 MG/DL Urine Leukocyte Esterase NEG Urine RBC 7 /hpf Urine WBC 1 /hpf Urine Squamous Epithelial 3 /hpf Cells Urine Bacteria RARE /hpf Urine Mucus FEW /lpf Microscopic Urinalysis Comment CULT NOT INDICATED MDM Medical Decision Making Medical Screen Exam Complete: Yes Emergency Medical Condition: Yes Medical Record Reviewed: Yes Differential Diagnosis NSTEMI, unstable angina, coronary vasospasm, PE, PTX, aortic dissection, pericarditis, myocarditis, endocarditis, PNA, esophageal disease, aneurysm, musculoskeletal etiologies, anxiety, cocaine/sympathomimetic abuse Narrative Course CBC & BMP Diagram 06/18/16 10:40 06/18/16 11:40 LFTs normal Troponin less than 0.02 INR 1.0 Urinalysis unremarkable AB.44/41/27 NC3L ABGpO2 81 Patient has received steroids and 3 rounds of breathing treatments. Rocephin/Azithomycin started. Blood cultures drawn. d/w Sonia Ramos and Kendal for FMR. Diagnosis Primary Impression: PNA (pneumonia) Qualified Code: J18.1 - Pneumonia of right lower lobe due to infectious organism Additional Impressions: Pleural effusion Chronic obstructive pulmonary disease with acute exacerbation Consolidation of right upper lobe Admitting Information Admitting Physician Requests: Admit Rakan Kebede MD Jun 18, 2016 12:51
[2016-06-18] MEDS ORDERED: ONDANSETRON ODT 4 MG TAB SL PRN (13:30)
--- NOTE | 2016-06-18 13:30 | HHI.HP ---
HPI Service Family Medicine Primary Care Physician Sean Silva, DO Admission Diagnosis COPD, R PNA, CHF, Bilat Leg Pain Diagnoses: International Travel<30 Days: No Contact w/Intl Traveler<30days: No History of Present Illness 60 year old female with PMH of CHF (last echo Mar 2016 with possibly normal EF, difficult to assess), CAD s/p stenting x4, COPD, HTN, DM on long-term insulin presenting with a 4 day history of progressively worsening SOB. Associated with orthopnea, chest pressure centrally, pleuritic chest pain on right side, and lower extremity edema. Progressively worsened over last several days since onset 4 days ago, this morning when she woke up it was severe, prompting her to come to ER. There have been no changes to her meds recently. She did not take her home medications this morning. She tried her albuterol and tiotropium inhalers which did not alleviate her symptoms. She also notes pain from her lower back downward which has been present for the last 2 weeks, worsened 1 week ago. No injury she recalls. No focal weakness, no incontinence of bowel or bladder, no numbness/tingling except in her fingertips and soles of her feet from diabetic neuropathy. Past Family Social History Past Medical History CAD s/p stenting x4 CHF HTN COPD PAD Past Surgical History Cholecystectomy Reported Medications Reported Meds & Active Scripts Active Ondansetron Odt 4 Mg Tab 4 Mg SL Q6HR PRN Spironolactone 25 Mg Tab 25 Mg PO BIDPC Lisinopril 10 Mg Tab 10 Mg PO DAILY 30 Days Coreg (Carvedilol) 3.125 Mg Tab 3.125 Mg PO BID Gabapentin 300 Mg Cap 300 Mg PO TID Reported Levemir Inj (Insulin Detemir) 1,000 unit/ 10 ML Vial 70 Units SQ BID Do not mix with any other Insulin. Bumex (Bumetanide) 1 Mg Tab 1 Mg PO BID Aspirin DR (Aspirin) 81 Mg Tabdr 81 Mg PO DAILY Plavix (Clopidogrel Bisulfate) 75 Mg Tab 75 Mg PO DAILY Tramadol (Tramadol HCl) 50 Mg Tab 50 Mg PO Q8H PRN Atrovent HFA 12.9 GM Inh (Ipratropium Kiln) 17 Mcg/Act Aer 2 Puff INH TID PRN Proventil Hfa 6.7 GM Inh (Albuterol Sulfate) 90 Mcg/Act Aer 2 Puff INH Q4-6H PRN Nitroglycerin SL (Nitroglycerin) 0.4 Mg Subl 0.4 Mg SL DIRECTED PRN ONE TABLET UNDER THE TONGUE NEEDED FOR CHEST PAIN, MAY REPEAT EVERY FIVE MINUTES FOR A TOTAL OF 3 DOSES OR CALL 911 IF NO RELIEF Atorvastatin (Atorvastatin Calcium) 80 Mg Tab 80 Mg PO DAILY Omeprazole 20 Mg Tab 20 Mg PO DAILY Allergies: Coded Allergies: Codeine (Verified Allergy, Intermediate, rash, 04/24/16) Penicillin (Verified Allergy, Intermediate, RASH,FEVER, SEIZURE, 04/24/16) Hydromorphone (Verified Adverse Reaction, Intermediate, Nausea/Vomiting, ) very lightheaded *MDRO Multi-Drug Resistant Organism (Verified Adverse Reaction, Unknown, Cleared 04/25/16, 04/26/16) MRSA (leg wound) 04/2015 MRSA PCR screen NEGATIVE - 03/26/16 & 04/25/16 Cleared per Infection Control Active Ordered Medications Current Medications Medications (Trade) Dose Ordered Sig/Nury Route Start Time Stop Time Status Last Admin (Ecotrin Ec) 81 mg DAILY PO 06/19/16 09:00 (Lipitor) 80 mg DAILY PO 06/19/16 09:00 (Bumetanide) 1 mg BID@,18 PO 06/18/16 18:00 06/18/16 18:14 (Neurontin) 300 mg TID PO 06/18/16 18:00 06/18/16 18:14 (Prinivil) 10 mg DAILY PO 06/19/16 09:00 (Zofran Odt) 4 mg Q6HR PRN SL 06/18/16 13:30 (Aldactone) 25 mg BIDPC PO 06/18/16 18:00 06/18/16 18:14 (Protonix) 20 mg DAILY PO 06/19/16 09:00 (NS Flush) 2 ml BID IV FLUSH 06/18/16 21:00 (NS Flush) 2 ml UNSCH PRN IV FLUSH 06/18/16 14:00 (KCl) 20 meq BID PO 06/18/16 21:00 (Lovenox Inj) 40 mg Q24H SQ 06/18/16 15:00 06/18/16 15:00 (Levemir Inj) 70 units Q12HR SQ 06/18/16 21:00 (D50w (Vial) Inj) 25 ml UNSCH PRN IV PUSH 06/18/16 14:15 (Glucagon Inj) 1 mg UNSCH PRN OTHER 06/18/16 14:15 ([place] 5-325 Mg) 1 tab Q4H PRN PO 06/18/16 14:15 ([place] 10-325 Mg) 1 tab Q4H PRN PO 06/18/16 14:15 06/18/16 19:29 (Morphine Inj) 4 mg Q3H PRN IV 06/18/16 14:15 06/18/16 16:17 Naloxone HCl 0.4 mg 0.4 mg UNSCH PRN IV 06/18/16 14:15 (Rocephin Inj/NS Inj) 100 ml @ 200 mls/hr Q24H IV 06/19/16 15:00 (Zithromax) 500 mg DAILY PO 06/19/16 09:00 Family History heart disease on her mother side Social History Tobacco - Quit 2 years ago, smoked 3 PPD for 35 years Alcohol - None Drugs - None now or in past Physical Exam Vital Signs Vital Signs Date Time Temp Pulse Resp B/P Pulse Ox O2 Delivery O2 Flow Rate FiO2 06/18/16 13:24 96 Nasal Cannula 3 06/18/16 13:24 96 Nasal Cannula 3 06/18/16 13:23 96 20 112/66 96 Nasal Cannula 3 06/18/16 11:00 101 30 116/68 95 3 06/18/16 10:37 98 Nasal Cannula 3.00 06/18/16 10:30 94 Nasal Cannula 3 06/18/16 10:20 97.9 103 24 159/82 92 Room Air Physical Exam GENERAL: WDWN obese female sitting up in bed appearing uncomfortable but in NAD SKIN: No rashes, ecchymoses or lesions. Cool and dry. HEAD: NC/AT EYES: PERRL. EOMI. No conjunctival injection or drainage. ENT: MMM, OP without erythema, tonsillar swelling, or exudate. NECK: Supple, no lymphadenopathy. Difficult to assess JVD due to neck circumference. CARDIOVASCULAR: NRRR. Normal S1/S2. No MRG. RESPIRATORY: Bilateral crackles up to mid-lung hdez bilaterally. GASTROINTESTINAL: Abdomen soft, non-distended, non-tender. Hepatojugular reflex difficult to assess due to obesity. MUSCULOSKELETAL: Extremities without clubbing or cyanosis. 1+ pitting edema to distal 1/3 of shins BLE. NEUROLOGICAL: Awake and alert. Cranial nerves II through XII grossly intact. Moves all extremities without difficulty. Normal speech. Laboratory Laboratory Tests Test 06/18/16 06/18/16 06/18/16 10:40 11:40 11:55 Blood Gas Puncture Site LT RADIAL Blood Gas Patient Temperature 98.6 Blood Gas HCO3 27 Blood Gas Base Excess 3.0 Blood Gas Oxygen Saturation 94 Arterial Blood pH 7.44 Arterial Blood Partial 41 Pressure CO2 Arterial Blood Partial 81 Pressure O2 Arterial Blood Oxygen Content 14.7 Arterial Blood 1.7 Carboxyhemoglobin Arterial Blood Methemoglobin 0.6 Blood Gas Hemoglobin 11.0 Oxygen Delivery Device NASAL CANNULA Blood Gas Liter Flow 3 Sodium Level 140 Potassium Level 4.3 Chloride Level 103 Carbon Dioxide Level 27.8 Anion Gap 9 Blood Urea Nitrogen 17 Creatinine 0.82 Estimat Glomerular Filtration 72 Rate Random Glucose 232 Calcium Level 9.0 Magnesium Level 1.9 Total Bilirubin 0.3 Aspartate Amino Transf 23 (AST/SGOT) Alanine Aminotransferase 14 (ALT/SGPT) Alkaline Phosphatase 115 Total Creatine Kinase 249 Creatine Kinase MB 5.0 Creatine Kinase MB % 2.0 Troponin I LESS THAN 0.02 Total Protein 7.5 Albumin 2.8 White Blood Count 10.1 Red Blood Count 4.00 Hemoglobin 10.6 Hematocrit 32.1 Mean Corpuscular Volume 80.2 Mean Corpuscular Hemoglobin 26.6 Mean Corpuscular Hemoglobin 33.2 Concent Red Cell Distribution Width 15.2 Platelet Count 263 Mean Platelet Volume 8.6 Neutrophils (%) (Auto) 70.0 Lymphocytes (%) (Auto) 19.3 Monocytes (%) (Auto) 6.6 Eosinophils (%) (Auto) 3.5 Basophils (%) (Auto) 0.6 Neutrophils # (Auto) 7.1 Lymphocytes # (Auto) 2.0 Monocytes # (Auto) 0.7 Eosinophils # (Auto) 0.4 Basophils # (Auto) 0.1 CBC Comment DIFF FINAL Differential Comment Prothrombin Time 10.7 Prothromb Time International 1.0 Ratio Activated Partial 25.5 Thromboplast Time B-Type Natriuretic Peptide 253 Urine Color LIGHT-YELLOW Urine Turbidity CLEAR Urine pH 7.0 Urine Specific [place] 1.011 Urine Protein 100 Urine Glucose (UA) 1000 Urine Ketones NEG Urine Occult Blood SMALL Urine Nitrite NEG Urine Bilirubin NEG Urine Urobilinogen LESS THAN 2.0 Urine Leukocyte Esterase NEG Urine RBC 7 Urine WBC 1 Urine Squamous Epithelial 3 Cells Urine Bacteria RARE Urine Mucus FEW Microscopic Urinalysis Comment CULT NOT INDICATED Result Diagram: 06/18/16 1140 06/18/16 1040 Imaging Last Impressions Chest X-Ray 06/18/16 1032 Signed Impressions: Service Date/Time: Saturday, June 18, 2016 10:38 - CONCLUSION: 1. Bilateral mid and lower lung zone airspace opacity was suspected small bilateral pleural effusions. These findings could represent pulmonary edema in the appropriate clinical setting. 2. Cardiac silhouette size is at the upper limits for normal. Myles Thomas MD Assessment and Plan Assessment and Plan 60 yo female with PMH of CHF (last echo 03/2016 showing probably normal EF but difficult to assess), COPD, HTN, DM, CAD s/p stenting x4, PAD presenting with: Problem List: (1) CHF exacerbation Status: Acute Plan: Given clinical history and exam findings (orthopnea, lung crackles, peripheral edema) likely etiology of SOB is CHF exacerbation. COPD flare less likely due to absence of wheezing or increased sputum. Given immobilization, PE is a concern however this would likely have developed rapidly as opposed to subacutely over several days. No evidence of arrhythmia. Extensive CAD but this is less likely to be CA again given subacute onset and initial negative troponin. Back pain likely chronic (onset ~2 weeks ago), BP initially elevated but then normalized so unlikely to be aortic dissection. EF 18% per ER physician (cannot find documentation) Well's score 1.5 for immobilization (low risk of PE) - Lasix 40 mg IV once now - Continue home Bumex - Limited Echo for EF assessment - Hold home beta-waldemar - Continue home JAROD, spironolactone - Fluid restriction 1.5 L - Diet ADA cons carb + Na restriction - Trend troponin, EKG to definitively r/o ACS - Consult cardiac rehab - CM consult for likely rehab - O2 NC titrated to keep >92 - Daily weight - I&O monitoring - Treat possible PNA as below (2) PNA (pneumonia) Status: Acute Plan: CXR showing pulmonary edema, but given right sided opacity somewhat worse than left on CXR as well as right sided pleuritic CP, PNA is possible. - Rocephin 2 g daily IV, Azithromycin 500 mg PO daily - CXR PA & lateral. If not suggestive of pneumonia will discontinue Abx - Trend CBC (3) Type 2 diabetes mellitus Status: Chronic Plan: Uncontrolled, sugars at home run 200s-300s. - Bedside glucose AC&HS - Insulin Levemir 70 units BID (home is 70 units Lantus BID) - Med-dose SSI - Adjust as indicated from Accu-checks - Continue home gabapentin for neuropathy (4) CAD (coronary artery disease) Status: Chronic Plan: Stable - Continue home statin, aspirin (5) COPD (chronic obstructive pulmonary disease) Status: Chronic Plan: Stable, current symptoms more likely CHF - DuoNeb Q4H PRN SOB/wheezing (6) HTN (hypertension) Status: Chronic Plan: BP initially high around 160, decreased to 110s. - Continue home JAROD, spironolactone (7) Obesity Status: Chronic Plan: Stable - Diabetic diet ADA cons carb 2200 (8) PAD (peripheral artery disease) Status: Chronic Plan: Stable - Continue home statin (9) Leg pain, bilateral Status: Chronic Plan: Etiology unclear, unlikely to be DVT, seems more likely related to back pain and muscle strain (hamstrings very tight on exam). - PT eval & treat - Pain control with [place] 5 & 10 for pain 3-5 and 6-10 (10) FEN/PPX Status: Acute Plan: Fluids: PO only, restriction 1.5 L/day Elecs: Monitor and replete PRN Nutrition: Diet ADA 2200 cons carb + 2 g Na restriction DVT: Lovenox 40 mg SQ daily GERD: Continue home PPI sdw Dr. Greenwood Physician Certification 2 Midnight Certification Type: Admission for Inpatient Services Order for Inpatient Services The services are ordered in accordance with Medicare regulations or non- Medicare payer requirements, as applicable. In the case of services not specified as inpatient-only, they are appropriately provided as inpatient services in accordance with the 2-midnight benchmark. Estimated LOS (days): 2 2 days is the estimated time the patient will need to remain in the hospital, assuming treatment plan goals are met and no additional complications. Post-Hospital Plan: Not yet determined Problem Qualifiers (1) CHF exacerbation: Qualified Code: I50.23 - Acute on chronic systolic congestive heart failure (2) PNA (pneumonia): Qualified Code: J18.1 - Pneumonia of right lower lobe due to infectious organism (3) Type 2 diabetes mellitus: Qualified Code: E11.42 - Type 2 diabetes mellitus with diabetic polyneuropathy , with long-term current use of insulin (4) CAD (coronary artery disease): Qualified Code: I25.118 - Coronary artery disease of [place] artery of [place] heart with stable angina pectoris (5) COPD (chronic obstructive pulmonary disease): Qualified Code: J44.9 - Chronic obstructive pulmonary disease, unspecified COPD type (6) HTN (hypertension): Qualified Code: I10 - Essential hypertension (7) Obesity: Yung Edmonds MD R1 Jun 18, 2016 1:30 pm
[2016-06-18] MEDS ORDERED: SODIUM CHLORIDE 0.9% FLUSH 10 ML FLUSH IV FLUSH PRN (14:00)
[2016-06-18] MEDS ORDERED: FUROSEMIDE 40 MG/4 ML VIAL IV PUSH ONE (14:00)
[2016-06-18] MEDS ORDERED: ACETAMINOPHEN/HYDROcodone 325 MG/5 MG TAB PO PRN (14:15)
[2016-06-18] MEDS ORDERED: NALOXONE HCL 0.4 MG/ML AMP IV PRN (14:15)
[2016-06-18] MEDS ORDERED: RESP: ALBUTEROL 2.5 MG/IPRATROPIUM 0.5 MG NEB (PRN) NEB (14:15)
[2016-06-18] MEDS ORDERED: GLUCAGON 1 MG/ML VIAL OTHER PRN (14:15)
[2016-06-18] MEDS ORDERED: DEXTROSE 50% IN WATER 50 ML VIAL(D50) IV PUSH PRN (14:15)
[2016-06-18] MEDS: ENOXAPARIN SODIUM 40 MG/0.4 ML SYRINGE SQ SCH (15:00)
[2016-06-18] MEDS: INSULIN ASPART SUPPLEMENTAL SCALE SQ SCH ×2 (16:00→21:21)
[2016-06-18] MEDS: MORPHINE SULFATE 4 MG/ML INJ IV PRN ×2 (16:17→21:21)
--- NOTE | 2016-06-18 17:37 | RADRPT ---
EXAM DATE/TIME: 06/18/2016 17:27 [facility] COMPARISON: No previous studies available for comparison. INDICATIONS : Short of breath. MEDICAL HISTORY : Congestive heart failure. SURGICAL HISTORY : None. ENCOUNTER: Initial ACUITY: 3 days PAIN SCORE: 8/10 LOCATION: Bilateral chest FINDINGS: There is cardiomegaly, interstitial and alveolar opacities bilaterally. No effusions. Degenerative ch anges of the spine. CONCLUSION: Findings consistent with the history of CHF. Shai Patel MD on June 18, 2016 at 17:35 Board Certified Radiologist. This report was verified electronically.
[2016-06-18] MEDS: GABAPENTIN 300 MG CAP PO SCH (18:14)
[2016-06-18] MEDS: BUMETANIDE 1 MG TAB PO SCH (18:14)
[2016-06-18] MEDS: SPIRONOLACTONE 25 MG TAB PO SCH (18:14)
[2016-06-18] MEDS: ACETAMINOPHEN/HYDROcodone 325 MG/10 MG TAB PO PRN ×2 (19:29→23:49)
[2016-06-18 19:35] LABS: CKMB 4.7 NG/ML (0.5-3.6)
--- NOTE | 2016-06-18 20:10 | HHI.PR ---
Addendum to Inpatient Note Addendum Reason: Additional Documentation Additional Information Attending note: Patient seen, examined, and discussed with resident team. I agree with assessment and management as documented and discussed with me. The patient has been seen and examined. The chart and all resident notes have been reviewed. I agree that inpatient care is appropriate and that a two midnight stay is expected for the reasons documented in the resident history and physical. I have discussed this with the resident and certify the resident s order for inpatient admission. Manuela Clayton is a 60yo lady admitted for gradually worsening SOB over the past few days. Work up reveals suspected pulmonary edema vs pneumonia. Will treat CHF exacerbation. Continue home bumex. IV dose of lasix provided. Monitor Is/Os. Reevaluate patient in AM to determine if more lasix is needed. Will treat for pneumonia as ordered. Additional diagnosis: Normocytic anemia: suspect this is baseline. No obvious active bleeding. Hemodynamically stable. Monitor with CBC in AM. Barby Greenwood MD Jun 18, 2016 20:10
[2016-06-18] MEDS: POTASSIUM CHLORIDE 20 MEQ CONTROLLED RELEASE TAB PO SCH (21:19)
[2016-06-18] MEDS: INSULIN DETEMIR 100 UNITS/ML VIAL SQ SCH (21:20)
[2016-06-18] MEDS: SODIUM CHLORIDE 0.9% FLUSH 10 ML FLUSH IV FLUSH SCH (21:22)
[2016-06-18 23:25] LABS: CREATINE KINASE 169 U/L (26-192)
[2016-06-18 23:37] LABS: CKMB 3.8 NG/ML (0.5-3.6)
[2016-06-19] VITALS (9 sets, daily range): BP systolic 94–128; BP diastolic 55–77; PULSE 72–90; RESP 18–20; TEMP 97.4–97.8; O2SAT 95–99
[2016-06-19] MEDS: MORPHINE SULFATE 4 MG/ML INJ IV PRN ×4 (02:02→22:10)
[2016-06-19] MEDS: diphenhydrAMINE HCL 50 MG CAP PO PRN ×2 (03:00→12:21)
[2016-06-19] MEDS ORDERED: diphenhydrAMINE HCL 50 MG CAP PO PRN (03:00)
[2016-06-19] MEDS: ACETAMINOPHEN/HYDROcodone 325 MG/10 MG TAB PO PRN ×3 (03:56→19:42)
[2016-06-19] MEDS: INSULIN ASPART SUPPLEMENTAL SCALE SQ SCH ×4 (06:16→21:05)
--- NOTE | 2016-06-19 07:57 | ECHLIM ---
Study Study Date:06/18/2016 STUDY CONCLUSIONS SUMMARY LEFT VENTRICLE: The cavity size was normal. Wall thickness was normal. Systolic function was moderately to severely reduced. The estimated ejection fraction was in the range of 30% to 35%. Wall motion was normal; there were no regional wall motion abnormalities. If LV function is below 40, please consider prescribing an ACEI or ARB or document rationale for non-use. PROCEDURE DATA STUDY STATUS: Elective. Procedure: Transthoracic echocardiography. Image quality was good. Scanning was performed from the parasternal, apical, and subcostal acoustic windows. Study completion: The patient tolerated the procedure well. Transthoracic echocardiography. M-mode, complete 2D, complete spectral Doppler, and color Doppler. Height: Height: 62in. Weight: Weight: 274.4lb. Body mass index: BMI: 50.3kg/m^2. Body surface area: BSA: 2.19m^2. Patient status: Inpatient. CARDIAC ANATOMY LEFT VENTRICLE: The cavity size was normal. Wall thickness was normal. Systolic function was moderately to severely reduced. The estimated ejection fraction was in the range of 30% to 35%. Wall motion was normal; there were no regional wall motion abnormalities. AORTIC VALVE: Trileaflet; normal thickness leaflets. Doppler: Transvalvular velocity was within the normal range. There was no stenosis. No regurgitation. AORTA: Aortic root: The aortic root was normal in size. MITRAL VALVE: Structurally normal valve. Doppler: Transvalvular velocity was within the normal range. There was no evidence for stenosis. No regurgitation. LEFT ATRIUM: The atrium was normal in size. RIGHT VENTRICLE: The cavity size was normal. Wall thickness was normal. PULMONIC VALVE: Doppler: Transvalvular velocity was within the normal range. There was no evidence for stenosis. No regurgitation. TRICUSPID VALVE: Structurally normal valve. Doppler: Transvalvular velocity was within the normal range. No regurgitation. PULMONARY ARTERY: The main pulmonary artery was normal-sized. Systolic pressure was within the normal range. RIGHT ATRIUM: The atrium was normal in size. PERICARDIUM: There was no pericardial effusion. SYSTEMIC VEINS: Inferior vena cava: The vessel was normal in size. Patient weight: 274.4lb _Ejection fraction:_ 65-75% _Fractional shortening:_ 32% up to 5Kg 5-11.5Kg 11.6-22.9Kg 23-45Kg 45-57Kg Aortic Root 7-13 <17 13-22 17-27 17-27 LA diam 6-13 <23 24-38 33-47 37-40 RVID 10-17 7-15 7-15 7-18 8-17 LVIDd 12-22 <32 24-38 33-47 37-40 LVPW 2-4 3-6 5-7 6-8 7-8 IVS 2-4 3-6 5-7 6-8 7-8 BASIC MEASUREMENTS ADULT NORMAL Left ventricle LV internal dimension, ED, chordal level, *59.3 mm 43-52 PLAX LV internal dimension, ES, chordal level, *51.8 mm 23-38 PLAX Fractional shortening, chordal level, *13 % >29 PLAX LV posterior wall thickness, ED 10.4 mm IVS/LVPW ratio, ED 1.11 <1.3 Volume, ED, MOD, 1-plane 199 ml Volume, ES, MOD, 1-plane 145 ml Ejection fraction, MOD, 1-plane 27 % Stroke volume, MOD, 1-plane 54 ml Volume index, ED, MOD, 1-plane 91 ml/m^2 Volume index, ES, MOD, 1-plane 66 ml/m^2 Stroke index, MOD, 1-plane 24.7 ml/m^2 Ventricular septum Septal thickness, ED 11.5 mm LEGEND: Mean values are shown as u=mean value. Asterisk (*) krue[place] values outside specified normal range. Prepared and signed by Carlos Pennington [id number]
[2016-06-19] MEDS: SODIUM CHLORIDE 0.9% FLUSH 10 ML FLUSH IV FLUSH SCH ×2 (08:28→21:05)
[2016-06-19] MEDS: ASPIRIN EC 81 MG TABEC PO SCH (08:29)
[2016-06-19] MEDS: SPIRONOLACTONE 25 MG TAB PO SCH ×2 (08:29→18:00)
[2016-06-19] MEDS: ATORVASTATIN 80 MG TAB PO SCH (08:29)
[2016-06-19] MEDS: BUMETANIDE 1 MG TAB PO SCH ×2 (08:29→18:00)
[2016-06-19] MEDS: POTASSIUM CHLORIDE 20 MEQ CONTROLLED RELEASE TAB PO SCH ×2 (08:29→21:05)
[2016-06-19] MEDS: GABAPENTIN 300 MG CAP PO SCH ×3 (08:30→18:06)
[2016-06-19] MEDS: PANTOPRAZOLE SOD 20 MG DELAYED RELEASE TAB PO SCH (08:30)
[2016-06-19] MEDS: INSULIN DETEMIR 100 UNITS/ML VIAL SQ SCH ×2 (08:30→21:06)
[2016-06-19] MEDS: LISINOPRIL 10 MG TAB PO SCH (08:30)
[2016-06-19] MEDS ORDERED: AZITHROMYCIN 250 MG TAB PO SCH (09:00)
--- NOTE | 2016-06-19 11:39 | EKG ---
Date Performed: 06/18/2016 Time Performed: 21:49:43 PTAGE: 60 years EKG: Sinus rhythm WITH OCCASIONAL VENTRICULAR PREMATURE COMPLEXES POSSIBLE LEFT ATRIAL ENLARGEMENT INTRAVENTRICULAR CO NDUCTION DELAY POSSIBLE LEFT VENTRICULAR HYPERTROPHY ANTERIOR MYOCARDIAL INFARCTION , PROBABLY OLD IN FERIOR MYOCARDIAL INFARCTION , OF INDETERMINATE AGE WITH POSTERIOR EXTENSION ABNORMAL ECG PREVIOUS TRACING : 06/18/2016 13.29 DOCTOR: Fortino Lopes Interpretating Date/Time 06/19/2016 11:35:58
--- NOTE | 2016-06-19 11:48 | EKG ---
Date Performed: 06/18/2016 Time Performed: 13:29:34 PTAGE: 60 years EKG: Sinus TACHYCARDIA LAD INTRAVENTRICULAR CONDUCTION DELAY LEFT VENTRICULAR HYPERTROPHY AND ST -T CHANGE INFERIOR MYOCARDIAL INFARCTION ABNORMAL ECG PREVIOUS TRACING : 04/24/2016 09.05 DOCTOR: Fortino Lopes Interpretating Date/Time 06/19/2016 11:43:25
[2016-06-19 12:00] LABS: HEMATOCRIT 34.2 % (35.0-46.0); MEAN CORPUSCULAR HEMOGLOBIN 26.2 PG (27.0-34.0); PLATELET COUNT 240 TH/MM3 (150-450); RED BLOOD COUNT 4.17 MIL/MM3 (4.00-5.30); RED CELL DISTRIBUTION WIDTH 15.2 % (11.6-17.2); REVIEW FLAG FINAL; WHITE BLOOD COUNT 10.6 TH/MM3 (4.0-11.0)
[2016-06-19] MEDS ORDERED: DOCUSATE SODIUM 50 MG/SENNA 8.6 MG TAB PO ONE (12:30)
[2016-06-19] MEDS ORDERED: PHENOL 1.4% SOLN 180 ML BTL OROPHARYNG PRN (12:30)
[2016-06-19 12:31] LABS: BICARBONATE 31.7 MEQ/L (21.0-32.0); POTASSIUM 4.1 MEQ/L (3.5-5.1)
[2016-06-19] MEDS ORDERED: FUROSEMIDE 40 MG/4 ML VIAL IV PUSH ONE (13:00)
[2016-06-19] MEDS: ENOXAPARIN SODIUM 40 MG/0.4 ML SYRINGE SQ SCH (13:54)
--- NOTE | 2016-06-19 14:10 | HHI.FPPN ---
Subjective Remarks No acute events overnight. Requiring NC 3 to maintain O2 saturation >92. She feels less short of breath today, still with some mild pleuritic CP on the right. Today she noted severe itching a bit after initiating Rocephin. No hives , no wheezing, no worse shortness of breath. She also notes a rash beneath her breasts and in her groin that has been itching her for some time. (Yung Edmonds MD R1) Objective Vitals Vital Signs Date Time Temp Pulse Resp B/P Pulse Ox O2 Delivery O2 Flow Rate FiO2 06/19/16 12:08 18 06/19/16 12:00 97.7 90 20 128/69 97 06/19/16 08:29 18 06/19/16 08:00 97.8 84 20 127/77 98 06/19/16 05:22 98 Nasal Cannula 3.00 06/19/16 04:27 97.7 84 18 126/59 95 06/18/16 23:22 97.6 67 18 141/67 95 06/18/16 20:19 104 06/18/16 19:28 98.0 100 20 159/78 94 06/18/16 18:00 98.2 102 22 173/94 93 I/O 06/18/16 06/18/16 06/18/16 06/19/16 06/19/16 06/19/16 07:00 15:00 23:00 07:00 15:00 23:00 Intake Total 720 ml 200 ml Output Total 500 ml 650 ml Balance 220 ml -450 ml Intake Oral 720 ml 200 ml Output Urine Total 500 ml 650 ml # Bowel Movements 0 0 (Yung Edmonds MD R1) Result Diagram: 06/19/16 1123 06/19/16 1123 Imaging Last Impressions Chest X-Ray 06/18/16 1032 Signed Impressions: Service Date/Time: Saturday, June 18, 2016 10:38 - CONCLUSION: 1. Bilateral mid and lower lung zone airspace opacity was suspected small bilateral pleural effusions. These findings could represent pulmonary edema in the appropriate clinical setting. 2. Cardiac silhouette size is at the upper limits for normal. Myles Thomas MD Objective Remarks GENERAL: WDWN obese female sitting up in bed appearing uncomfortable but in NAD SKIN: Erythematous patchy rash with white crusting underneath breasts and between abdominal folds & groin. CARDIOVASCULAR: NRRR. Normal S1/S2. No MRG. RESPIRATORY: Bilateral crackles up to lower third of lung hdez bilaterally. GASTROINTESTINAL: Abdomen soft, non-distended, non-tender. MUSCULOSKELETAL: Extremities without clubbing or cyanosis. Trace-1+ pitting edema to distal 1/3 of shins BLE. Straight leg raise negative bilaterally. NEUROLOGICAL: Awake and alert. Cranial nerves II through XII grossly intact. Moves all extremities without difficulty. No saddle anesthesia. Normal speech. Medications and IVs Current Medications Medications (Trade) Dose Ordered Sig/Nury Route Start Time Stop Time Status Last Admin (Ecotrin Ec) 81 mg DAILY PO 06/19/16 09:00 06/19/16 08:29 (Lipitor) 80 mg DAILY PO 06/19/16 09:00 06/19/16 08:29 (Bumetanide) 1 mg BID@09,18 PO 06/18/16 18:00 06/19/16 08:29 (Neurontin) 300 mg TID PO 06/18/16 18:00 06/19/16 08:30 (Prinivil) 10 mg DAILY PO 06/19/16 09:00 06/19/16 08:30 (Zofran Odt) 4 mg Q6HR PRN SL 06/18/16 13:30 (Aldactone) 25 mg BIDPC PO 06/18/16 18:00 06/19/16 08:29 (Protonix) 20 mg DAILY PO 06/19/16 09:00 06/19/16 08:30 (NS Flush) 2 ml BID IV FLUSH 06/18/16 21:00 06/19/16 08:28 (NS Flush) 2 ml UNSCH PRN IV FLUSH 06/18/16 14:00 (KCl) 20 meq BID PO 06/18/16 21:00 06/19/16 08:29 (Lovenox Inj) 40 mg Q24H SQ 06/18/16 15:00 06/18/16 15:00 (Levemir Inj) 70 units Q12HR SQ 06/18/16 21:00 06/19/16 08:30 (D50w (Vial) Inj) 25 ml UNSCH PRN IV PUSH 06/18/16 14:15 (Glucagon Inj) 1 mg UNSCH PRN OTHER 06/18/16 14:15 ([place] 5-325 Mg) 1 tab Q4H PRN PO 06/18/16 14:15 ([place] 10-325 Mg) 1 tab Q4H PRN PO 06/18/16 14:15 06/19/16 08:31 (Morphine Inj) 4 mg Q3H PRN IV 06/18/16 14:15 06/19/16 06:18 (Narcan Inj) 0.4 mg UNSCH PRN IV 06/18/16 14:15 (Benadryl) 50 mg Q4H PRN PO 06/19/16 03:00 06/19/16 12:21 (Joaquina-Colace) 2 tab BID PRN PO 06/19/16 21:00 (Chloraseptic [place]) 2 spray Q2H PRN OROPHARYNG 06/19/16 12:30 (Mycostatin Cream) 1 applic Q12HR TOPICAL 06/19/16 21:00 ([place] Matthew) 1 lozenge UNSCH PRN BUCCAL 06/19/16 13:45 (Yung Edmonds MD R1) A/P Assessment and Plan 60 yo female with PMH of CHF (last echo 03/2016 showing probably normal EF but difficult to assess), COPD, HTN, DM, CAD s/p stenting x4, PAD presenting with: (Yung Edmonds MD R1) Attending Attestation Patient seen, examined, and discussed with resident team. I agree with assessment and management as documented and discussed with me. Pt reports breathing is a bit better. CXR does not demonstrate pneumonia - d/c antibiotics today. Provide another dose of IV lasix and continue home bumex. Monitor Is/Os. (Barby Greenwood MD) Problem List: (1) CHF exacerbation Status: Acute Plan: Impression Improved since yesterday after 40 mg IV Lasix + home Bumex. Still some crackles , still somewhat short of breath. -230 mL fluid balance last 24 h, weight loss of 0.6 kg. Work-up Tropinins negative x3, EKG without signs of ischemia EF 18% per ER physician (cannot find documentation) Formal Echo showing EF 30-35% Well's score 1.5 for immobilization (low risk of PE) BP initially high but normalized (unlikely to be aortic dissection; low back pain / leg pain likely chronic and musculoskeletal) CXR PA/Lat showing pulmonary edema, no evidence of focal consolidation (no pneumonia) - Additional Lasix 40 mg IV once now - Continue home Bumex - Hold home beta-waldemar until symptoms improve - Continue home JAROD, spironolactone - Fluid restriction 1.5 L - Diet ADA cons carb + Na restriction - Trend troponin, EKG to definitively r/o ACS - Consult cardiac rehab - CM consult for likely rehab - O2 NC titrated to keep >92 - Daily weight - I&O monitoring, strict - Discontinue Rocephin/Azithromycin due to no CXR evidence of pneumonia (2) Intertriginous candidiasis Status: Acute Plan: Rash typical of intertriginous rosalee. Itchy to patient. - Benadryl 50 mg PO Q4H PRN itch - Nystatin cream 1 applic BID to affected areas (3) Type 2 diabetes mellitus Status: Chronic Plan: Uncontrolled, sugars at home run 200s-300s. Last 24 h ranging 139 - 329 ( 139 AC breakfast). - Bedside glucose AC&HS - Insulin Levemir 70 units BID (home is 70 units Lantus BID) - Med-dose SSI - Adjust as indicated from Accu-checks - Continue home gabapentin for neuropathy (4) CAD (coronary artery disease) Status: Chronic Plan: Stable - Continue home statin, aspirin (5) COPD (chronic obstructive pulmonary disease) Status: Chronic Plan: Stable, current symptoms due to CHF - DuoNeb Q4H PRN wheezing (6) HTN (hypertension) Status: Chronic Plan: BP initially high around 160, now down to 120s and stable - Continue home JAROD, spironolactone (7) Obesity Status: Chronic Plan: Stable - Diabetic diet ADA cons carb 2200 (8) PAD (peripheral artery disease) Status: Chronic Plan: Stable - Continue home statin (9) Leg pain, bilateral Status: Chronic Plan: Etiology unclear, unlikely to be DVT, seems more likely related to back pain and muscle strain (hamstrings very tight on exam). - PT eval & treat - Pain control with [place] 5 & 10 for pain 3-5 and 6-10 (10) FEN/PPX Status: Acute Plan: Fluids: PO only, restriction 1.5 L/day Elecs: Monitor and replete PRN Nutrition: Diet ADA 2200 cons carb + 2 g Na restriction DVT: Lovenox 40 mg SQ daily GERD: Continue home PPI sdw Dr. Greenwood, Dr. Ramos (Yung Edmonds MD R1) Problem Qualifiers (1) CHF exacerbation: Qualified Code: I50.23 - Acute on chronic systolic congestive heart failure (2) Type 2 diabetes mellitus: Qualified Code: E11.42 - Type 2 diabetes mellitus with diabetic polyneuropathy , with long-term current use of insulin (3) CAD (coronary artery disease): Qualified Code: I25.118 - Coronary artery disease of [place] artery of [place] heart with stable angina pectoris (4) COPD (chronic obstructive pulmonary disease): Qualified Code: J44.9 - Chronic obstructive pulmonary disease, unspecified COPD type (5) HTN (hypertension): Qualified Code: I10 - Essential hypertension (6) Obesity: Yung Edmonds MD R1 Jun 19, 2016 14:10 Barby Greenwood MD Jun 19, 2016 20:10
[2016-06-19] MEDS ORDERED: cefTRIAXone INJ 2,000 MG in SODIUM CHLORIDE 0.9% INJ 100 ML IV SCH (15:00)
[2016-06-19] MEDS: MENTHOL LOZENGE BUCCAL PRN ×2 (18:06→21:04)
[2016-06-19] MEDS: NYSTATIN 100,000 UNIT/GM CREAM 15 GM TOPICAL SCH (21:04)
[2016-06-20] VITALS (10 sets, daily range): BP systolic 99–141; BP diastolic 53–68; PULSE 80–101; RESP 18–20; TEMP 97.8–99; O2SAT 94–99
[2016-06-20] MEDS: ACETAMINOPHEN/HYDROcodone 325 MG/10 MG TAB PO PRN ×6 (00:09→23:39)
[2016-06-20] MEDS: MORPHINE SULFATE 4 MG/ML INJ IV PRN ×5 (03:04→21:31)
[2016-06-20] MEDS: MENTHOL LOZENGE BUCCAL PRN ×2 (03:09→03:10)
[2016-06-20] MEDS: INSULIN ASPART SUPPLEMENTAL SCALE SQ SCH ×4 (06:13→21:00)
[2016-06-20] MEDS: INSULIN DETEMIR 100 UNITS/ML VIAL SQ SCH ×2 (09:16→21:30)
[2016-06-20] MEDS: POTASSIUM CHLORIDE 20 MEQ CONTROLLED RELEASE TAB PO SCH ×2 (09:17→21:30)
[2016-06-20] MEDS: PANTOPRAZOLE SOD 20 MG DELAYED RELEASE TAB PO SCH (09:17)
[2016-06-20] MEDS: BUMETANIDE 1 MG TAB PO SCH ×2 (09:17→18:11)
[2016-06-20] MEDS: ATORVASTATIN 80 MG TAB PO SCH (09:17)
[2016-06-20] MEDS: ASPIRIN EC 81 MG TABEC PO SCH (09:17)
[2016-06-20] MEDS: GABAPENTIN 300 MG CAP PO SCH ×3 (09:17→18:11)
[2016-06-20] MEDS: SPIRONOLACTONE 25 MG TAB PO SCH ×2 (09:17→18:11)
[2016-06-20] MEDS: LISINOPRIL 10 MG TAB PO SCH (09:17)
[2016-06-20] MEDS: CARVEDILOL 3.125 MG TAB PO SCH ×2 (09:17→21:30)
[2016-06-20] MEDS: NYSTATIN 100,000 UNIT/GM CREAM 15 GM TOPICAL SCH ×2 (09:20→21:00)
[2016-06-20] MEDS: SODIUM CHLORIDE 0.9% FLUSH 10 ML FLUSH IV FLUSH SCH ×2 (09:20→21:31)
[2016-06-20 10:38] LABS: BICARBONATE 28.8 MEQ/L (21.0-32.0); POTASSIUM 4.8 MEQ/L (3.5-5.1)
[2016-06-20] MEDS ORDERED: FUROSEMIDE 40 MG/4 ML VIAL IV PUSH ONE ×2 (10:45→17:00)
--- NOTE | 2016-06-20 11:00 | HHI.FPPN ---
Subjective Remarks Sitting up in chair. Continuing to have stuffy nose and coughing, but breathing much improved from admission. Receiving 1 time dose of Lasix this morning for continued fluid overload. Also ordering incentive spirometry. She reports overall feeling better than at admission. No chest pain or abdominal pain. ( Melo Ramos MD R2) Objective Vitals Vital Signs Date Time Temp Pulse Resp B/P Pulse Ox O2 Delivery O2 Flow Rate FiO2 06/20/16 08:47 94 Nasal Cannula 2.00 06/20/16 08:30 99 06/20/16 08:00 98.9 101 18 129/58 97 06/20/16 03:52 97.8 80 18 106/68 98 06/19/16 23:18 97.7 88 18 114/55 97 06/19/16 20:00 97.7 85 18 118/58 95 06/19/16 19:27 97.7 85 18 118/58 95 06/19/16 16:00 97.4 72 18 94/59 99 06/19/16 15:30 20 06/19/16 13:30 98 Nasal Cannula 2.00 06/19/16 12:08 18 06/19/16 12:00 97.7 90 20 128/69 97 I/O 06/19/16 06/19/16 06/19/16 06/20/16 06/20/16 06/20/16 07:00 15:00 23:00 07:00 15:00 23:00 Intake Total 200 ml 720 ml 820 ml 200 ml Output Total 650 ml 200 ml 550 ml 250 ml Balance -450 ml 520 ml 270 ml -50 ml Intake Oral 200 ml 720 ml 720 ml 200 ml IV Total 100 ml Output Urine Total 650 ml 200 ml 550 ml 250 ml # Bowel Movements 0 0 2 0 (Melo Ramos MD R2) Result Diagram: 06/19/16 1123 06/20/16 0929 Imaging Last 72 hours Impressions Chest X-Ray 06/18/16 1032 Signed Impressions: Service Date/Time: Saturday, June 18, 2016 10:38 - CONCLUSION: 1. Bilateral mid and lower lung zone airspace opacity was suspected small bilateral pleural effusions. These findings could represent pulmonary edema in the appropriate clinical setting. 2. Cardiac silhouette size is at the upper limits for normal. Myles Thomas MD Chest X-Ray 06/18/16 0000 Signed Impressions: Service Date/Time: Saturday, June 18, 2016 17:27 - CONCLUSION: Findings consistent with the history of CHF. Shai Patel MD Objective Remarks GENERAL: WDWN obese female sitting up in chair, no distress SKIN: Erythematous patchy rash with white crusting underneath breasts and between abdominal folds & groin. CARDIOVASCULAR: NRRR. Normal S1/S2. No MRG. RESPIRATORY: Clear to auscultation today, much better than yesterday. GASTROINTESTINAL: Abdomen soft, non-distended, non-tender. MUSCULOSKELETAL: Extremities without clubbing or cyanosis. Trace-1+ pitting edema to distal 1/3 of shins BLE. NEUROLOGICAL: Awake and alert. Cranial nerves II through XII grossly intact. Moves all extremities without difficulty. (Melo Ramos MD R2) A/P Assessment and Plan 60 yo female with PMH of CHF, COPD, HTN, DM, CAD s/p stenting x4, PAD presenting with CHF exacerbation. Discharge Planning Likely today pending resolution of acute breathing issues. Will discharge home with education on CHF diet, fluid and sodium restriction, taking medications as prescribed. Will continue on JAROD, beta-waldemar, diuretic, CHF diet, fluid restriction, sodium restriction. Close follow up with cardiology on discharge. Would benefit from palliative care sooner in her course due to the progressive nature of CHF. (Melo Ramos MD R2) Attending Attestation Patient seen and examined, discussed with resident team. I agree with assessment and management as documented and discussed with me. Pt is sound asleep upon my entry in the room, but awakens to voice. She is sleepy but does participate in conversation. She reports a sensation of fluid in her lungs and worsened SOB this afternoon as compared to this morning. She denies chest pain, palpitations. Ankle edema has improved. Lungs exam with crackles. Management per note this afternoon by Dr Ramos. (Barby Greenwood MD) Problem List: (1) CHF exacerbation Status: Acute Plan: Echo showing EF 30-35%, edema of lower extremities, enlarged heart, also with concomitant upper respiratory symptoms. - Additional Lasix 40 mg IV once now - Continue home Bumex - Restart Carvedilol 3.125 mg bid - Continue home JAROD, spironolactone - Fluid restriction 1.5 L - Diet ADA cons carb + Na restriction - Consult cardiac rehab - CM consult for likely rehab - O2 NC titrated to keep >92 - Daily weights - I&O monitoring, strict (2) Intertriginous candidiasis Status: Acute Plan: Rash typical of intertriginous rosalee. Itchy to patient. - Benadryl 50 mg PO Q4H PRN itch - Nystatin cream 1 applic BID to affected areas (3) Type 2 diabetes mellitus Status: Chronic Plan: Uncontrolled, sugars at home run 200s-300s. Glucoses normal in hospital. - Bedside glucose AC&HS - Insulin Levemir 70 units BID (home is 70 units Lantus BID) - Med-dose SSI - Continue home gabapentin for neuropathy - Education on diabetes. (4) CAD (coronary artery disease) Status: Chronic Plan: Stable - Continue home statin, aspirin (5) COPD (chronic obstructive pulmonary disease) Status: Chronic Plan: Stable, current symptoms due to CHF - DuoNeb Q4H PRN wheezing (6) FEN/PPX Status: Acute Plan: Fluids: PO only, restriction 1.5 L/day Elecs: Monitor and replete PRN Nutrition: Diet ADA 2200 cons carb + 2 g Na restriction DVT: Lovenox 40 mg SQ daily GERD: Continue home PPI sdw Dr. Kendal Greenwood (Melo Ramos MD R2) Problem Qualifiers (1) CHF exacerbation: Qualified Code: I50.23 - Acute on chronic systolic congestive heart failure (2) Type 2 diabetes mellitus: Qualified Code: E11.42 - Type 2 diabetes mellitus with diabetic polyneuropathy , with long-term current use of insulin (3) CAD (coronary artery disease): Qualified Code: I25.118 - Coronary artery disease of [place] artery of [place] heart with stable angina pectoris (4) COPD (chronic obstructive pulmonary disease): Qualified Code: J44.9 - Chronic obstructive pulmonary disease, unspecified COPD type Melo Ramos MD R2 Jun 20, 2016 10:59 Barby Greenwood MD Jun 20, 2016 20:14 DVT: Lovenox 40 mg SQ daily GERD: Continue home PPI sdw Dr. Richard Garcia Problem Qualifiers (1) CHF exacerbation: Qualified Code: I50.23 - Acute on chronic systolic congestive heart failure (2) Type 2 diabetes mellitus: Qualified Code: E11.42 - Type 2 diabetes mellitus with diabetic polyneuropathy , with long-term current use of insulin (3) CAD (coronary artery disease): Qualified Code: I25.118 - Coronary artery disease of [place] artery of [place] heart with stable angina pectoris (4) COPD (chronic obstructive pulmonary disease): Qualified Code: J44.9 - Chronic obstructive pulmonary disease, unspecified COPD type (5) HTN (hypertension): Qualified Code: I10 - Essential hypertension (6) Obesity: Melo Ramos MD R2 Jun 20, 2016 10:59
[2016-06-20] MEDS: diphenhydrAMINE HCL 50 MG CAP PO PRN ×2 (12:26→21:30)
[2016-06-20] MEDS: ENOXAPARIN SODIUM 40 MG/0.4 ML SYRINGE SQ SCH (14:38)
[2016-06-20] MEDS: DOCUSATE SODIUM 50 MG/SENNA 8.6 MG TAB PO PRN (14:43)
--- NOTE | 2016-06-20 16:37 | HHI.FPPN ---
Addendum to progress note ADDENDUM Reason for addendum: Additonal documentation Additional information Revisited patient this afternoon. She reports she feels worse than earlier this morning when we saw her. She reports feeling heavy and fluid overloaded all over her body. She does not report significantly worsened breathing since this morning, but does feel like she has fluid in her lungs. She has not noticed any wheezing. She feels sleepy this afternoon but is alert when you talk to her. Vitals: 99.0 99 18 141/65 97% on 2 L Physical Exam: General: Slightly sleepy HEENT: Normocephalic, nasal cannula in place Cards: RRR, no murmur Lungs: Crackles in the lung bases, no wheezing, decreased respiratory effort, no accessory muscle use, nasal cannula in place on 2L, no distress Abdomen: Soft, nontender Ext: 1+ pitting edema up to shins Assessment: 60 year old female with CHF and COPD, appears more fluid overloaded than this morning, crackles in lung bases, some pitting edema in lower extremities, feels "heavy all over" from fluid overload. Also may be component of COPD, although there is no auditory wheezing at the time. She is also sleepier than this morning, suggesting possible CO2 retention from COPD. Plan: - Check VBG, BMP - One time IV Lasix 40 mg - One time DuoNeb treatment - Sign out to night team in case respiratory distress develops Discussed with Dr. Timo Ramos,Melo Hernandez MD R2 Jun 20, 2016 16:37
[2016-06-20] MEDS ORDERED: RESP: ALBUTEROL 2.5 MG/IPRATROPIUM 0.5 MG NEB (SCH) NEB ONE (17:00)
[2016-06-20 17:56] LABS: BLOOD GAS VENOUS BASE EXCESS 2.6 mmol/L (-2-2); BLOOD GAS VENOUS HCO3 29 mmol/L (22-26); BLOOD GAS VENOUS O2 CONTENT 11.7 Vol % (9.0-17.0); BLOOD GAS VENOUS O2 HGB SAT 76 % (70-76); BLOOD GAS VENOUS PCO2 63 mmHg (44-48); BLOOD GAS VENOUS PO2 49 mmHg (35-40); BLOOD GAS VENOUS pH 7.28 (7.360-7.400); TEMP CORR TO 98.6
[2016-06-20 17:58] LABS: CRITICAL VALUE YES; DRAW SITE R HAND; FIO2 21 %
[2016-06-20 18:56] LABS: BICARBONATE 31.7 MEQ/L (21.0-32.0); POTASSIUM 5.1 MEQ/L (3.5-5.1)
[2016-06-21] VITALS (9 sets, daily range): BP systolic 98–146; BP diastolic 55–79; PULSE 57–98; RESP 18–20; TEMP 97.6–99.3; O2SAT 95–100
[2016-06-21] MEDS: INSULIN ASPART SUPPLEMENTAL SCALE SQ SCH ×4 (06:05→21:01)
[2016-06-21 07:06] LABS: BICARBONATE 28.3 MEQ/L (21.0-32.0); POTASSIUM 5.4 MEQ/L (3.5-5.1)
[2016-06-21] MEDS: RESP: ALBUTEROL 2.5 MG/IPRATROPIUM 0.5 MG NEB (SCH) NEB ×4 (07:40→20:31)
[2016-06-21] MEDS: POTASSIUM CHLORIDE 20 MEQ CONTROLLED RELEASE TAB PO SCH ×2 (08:29→21:00)
[2016-06-21] MEDS: INSULIN DETEMIR 100 UNITS/ML VIAL SQ SCH ×2 (09:00→21:01)
[2016-06-21] MEDS: CARVEDILOL 3.125 MG TAB PO SCH ×2 (09:34→21:00)
[2016-06-21] MEDS: ACETAMINOPHEN/HYDROcodone 325 MG/10 MG TAB PO PRN ×4 (09:34→21:00)
[2016-06-21] MEDS: PANTOPRAZOLE SOD 20 MG DELAYED RELEASE TAB PO SCH (09:34)
[2016-06-21] MEDS: LISINOPRIL 10 MG TAB PO SCH (09:34)
[2016-06-21] MEDS: SPIRONOLACTONE 25 MG TAB PO SCH ×2 (09:34→18:14)
[2016-06-21] MEDS: GABAPENTIN 300 MG CAP PO SCH ×3 (09:34→18:14)
[2016-06-21] MEDS: SODIUM CHLORIDE 0.9% FLUSH 10 ML FLUSH IV FLUSH SCH ×2 (09:34→21:00)
[2016-06-21] MEDS: ATORVASTATIN 80 MG TAB PO SCH (09:34)
[2016-06-21] MEDS: ASPIRIN EC 81 MG TABEC PO SCH (09:34)
[2016-06-21] MEDS: BUMETANIDE 1 MG TAB PO SCH ×2 (09:34→18:14)
[2016-06-21] MEDS: NYSTATIN 100,000 UNIT/GM CREAM 15 GM TOPICAL SCH ×2 (09:35→21:00)
--- NOTE | 2016-06-21 10:43 | RADRPT ---
EXAM DATE/TIME: 06/21/2016 10:24 [facility] COMPARISON: CHEST PA & LAT, June 18, 2016, 17:27. CHEST SINGLE AP, June 18, 2016, 10:38. INDICATIONS : Short of breath MEDICAL HISTORY : Congestive heart failure. Hypertension Diabetes mellitus type II. Asthma SURGICAL HISTORY : Coronary artery stent. ENCOUNTER: Subsequent ACUITY: 4 - 6 days PAIN SCORE: 0/10 LOCATION: Bilateral chest FINDINGS: Single frontal view of the chest demonstrates cardiac silhouette size at the upper limits for normal. There are interstitial and airspace opacities in the mid and lower lung zones bilaterally. No pleura l effusion or pneumothorax is identified. Bones and soft tissues demonstrate no acute finding. CONCLUSION: Interstitial opacities in the mid and lower lung zones bilaterally that are either stable to slightly improved. Although nonspecific the appearance could represent pulmonary edema. Myles Thomas MD on June 21, 2016 at 10:41 Board Certified Radiologist. This report was verified electronically.
--- NOTE | 2016-06-21 12:15 | HHI.FPPN ---
Subjective Remarks Sitting up in chair. Less somnolent than yesterday after morphine stopped. Reports she continues to not be at her baseline. Still having some difficulties with breathing but overall improved from admission. Still feels a little tired. She reports feeling more fluid overloaded than her baseline. Reports no wheezing. [place] better after breathing treatment. (Melo Ramos MD R2) Objective Vitals Vital Signs Date Time Temp Pulse Resp B/P Pulse Ox O2 Delivery O2 Flow Rate FiO2 06/21/16 08:50 Nasal Cannula 2.00 Humidified 06/21/16 08:32 96 06/21/16 08:00 99.3 93 18 123/60 97 06/21/16 07:40 100 Nasal Cannula 2.00 06/21/16 04:00 98.1 98 18 127/79 96 06/21/16 04:00 Nasal Cannula 2.00 Humidified 06/21/16 00:00 97.6 97 20 139/75 96 06/21/16 00:00 Nasal Cannula 3.00 Humidified 06/20/16 21:56 95 Nasal Cannula 4.00 06/20/16 20:53 97 06/20/16 20:00 98.2 91 18 135/56 95 06/20/16 20:00 Nasal Cannula 2.00 Humidified 06/20/16 18:15 99.0 86 20 110/53 99 06/20/16 16:00 98.4 81 20 99/55 97 I/O 06/20/16 06/20/16 06/20/16 06/21/16 06/21/16 06/21/16 07:00 15:00 23:00 07:00 15:00 23:00 Intake Total 200 ml 606 ml 120 ml Output Total 250 ml 600 ml 500 ml 400 ml Balance -50 ml 6 ml -500 ml -280 ml Intake Oral 200 ml 600 ml 120 ml IV Total 6 ml Output Urine Total 250 ml 600 ml 500 ml 400 ml # Voids 4 # Bowel Movements 0 0 0 0 (Melo Ramos MD R2) Result Diagram: 06/19/16 1123 06/21/16 0615 Imaging Last 72 hours Impressions Chest X-Ray 06/21/16 0000 Signed Impressions: Service Date/Time: June 10:24 - CONCLUSION: Interstitial opacities in the mid and lower lung zones bilaterally that are either stable to slightly improved. Although nonspecific the appearance could represent pulmonary edema. Myles Thomas MD Objective Remarks GENERAL: obese female sitting up in chair, no distress SKIN: Erythematous patchy rash with white crusting underneath breasts and between abdominal folds & groin. CARDIOVASCULAR: NRRR. Normal S1/S2. No MRG. RESPIRATORY: Fine crackles in the bases, no respiratory distress, on 2L via nasal cannula. GASTROINTESTINAL: Abdomen soft, non-distended, non-tender. MUSCULOSKELETAL: Extremities without clubbing or cyanosis. Trace-1+ pitting edema to distal 1/3 of shins BLE. NEUROLOGICAL: Awake and alert. Cranial nerves II through XII grossly intact. Moves all extremities without difficulty. (Melo Ramos MD R2) A/P Assessment and Plan 60 yo female with PMH of CHF, COPD, HTN, DM, CAD s/p stenting x4, PAD presenting with CHF exacerbation. Discharge Planning Pending resolution of acute breathing issues. Will discharge home with education on CHF diet, fluid and sodium restriction, taking medications as prescribed. Will continue on JAROD, beta-waldemar, diuretic, CHF diet, fluid restriction, sodium restriction. Close follow up with cardiology on discharge. Would benefit from palliative care sooner in her course due to the progressive nature of CHF. (Melo Ramos MD R2) Attending Attestation Patient seen and examined, discussed with resident team. I agree with assessment and management as documented and discussed with me. Pt is more alert today. She still complains of SOB. On exam, no crackles, but end exp wheeze at R Lung base. Continue management of COPD and CHF exacerbations. (Barby Greenwood MD) Problem List: (1) CHF exacerbation Status: Acute Plan: Echo showing EF 30-35%, edema of lower extremities, enlarged heart, also with concomitant upper respiratory symptoms. X-ray showing slight improvement in pulmonary edema. - Lasix as needed for fluid overload. - Continue home Bumex - Restarted Carvedilol 3.125 mg bid - Continue home JAROD, spironolactone - Fluid restriction 1.5 L - Diet ADA cons carb + Na restriction - Cardiac rehab on discharge. - O2 NC titrated to keep >92 - Daily weights - I&O monitoring, strict - V/Q scan to help rule out PE. (2) COPD (chronic obstructive pulmonary disease) Status: Chronic Plan: Stable, current symptoms likely mostly due to CHF. However, may be component of COPD. She has improvement with DuoNeb treatments. - Continue DuoNeb treatments - Prednisone and Azithromycin added today, 06/21/16. (3) Intertriginous candidiasis Status: Acute Plan: Rash typical of intertriginous rosalee. Itchy to patient. - Benadryl 50 mg PO Q4H PRN itch - Nystatin cream 1 applic BID to affected areas (4) Type 2 diabetes mellitus Status: Chronic Plan: Uncontrolled, sugars at home run 200s-300s. Glucoses normal in hospital. - Bedside glucose AC&HS - Insulin Levemir 70 units BID (home is 70 units Lantus BID) - Med-dose SSI - Continue home gabapentin for neuropathy - Education on diabetes. (5) CAD (coronary artery disease) Status: Chronic Plan: Stable - Continue home statin, aspirin (6) FEN/PPX Status: Acute Plan: Fluids: PO only, restriction 1.5 L/day Elecs: Monitor and replete PRN Nutrition: Diet ADA 2200 cons carb + 2 g Na restriction DVT: Lovenox 40 mg SQ daily GERD: Continue home PPI sdw Dr. Kendal Greenwood (Melo Ramos MD R2) Problem Qualifiers (1) CHF exacerbation: Qualified Code: I50.23 - Acute on chronic systolic congestive heart failure (2) COPD (chronic obstructive pulmonary disease): Qualified Code: J44.9 - Chronic obstructive pulmonary disease, unspecified COPD type (3) Type 2 diabetes mellitus: Qualified Code: E11.42 - Type 2 diabetes mellitus with diabetic polyneuropathy , with long-term current use of insulin (4) CAD (coronary artery disease): Qualified Code: I25.118 - Coronary artery disease of [place] artery of [place] heart with stable angina pectoris Melo Ramos MD R2 Jun 21, 2016 12:15 Barby Greenwood MD Jun 21, 2016 16:44
[2016-06-21] MEDS: DOCUSATE SODIUM 50 MG/SENNA 8.6 MG TAB PO PRN (12:20)
[2016-06-21] MEDS: SULFAMETHOXAZOLE-TRIMETHOPRIM DS 800-160 MG TAB PO SCH (14:12)
[2016-06-21] MEDS: predniSONE 20 MG TAB PO SCH (14:12)
[2016-06-21] MEDS: ENOXAPARIN SODIUM 40 MG/0.4 ML SYRINGE SQ SCH (14:12)
--- NOTE | 2016-06-21 14:14 | RADRPT ---
EXAM DATE/TIME: 06/21/2016 13:22 [facility] COMPARISON: CHEST SINGLE AP, June 21, 2016, 10:24. INDICATIONS : Shortness of breath DOSE: 8.1 mCi Tc99m MAA IV 0.54 mCi Tc99m DTPA aerosol MEDICAL HISTORY : Congestive hearrt failure. Chronic obstructive pulmonary disease. Hypertension. SURGICAL HISTORY : Cholecystectomy. ENCOUNTER: Initial ACUITY: 1 day PAIN SCALE: 0/10 LOCATION: TECHNIQUE: Following five minutes of tidal breathing of DTPA aerosol, planar images of the lungs were performed in eight projections. The patient was then injected with MAA, and eight-view perfusion scan was perf ormed. FINDINGS: There is a homogeneous pattern of aerosol delivery to the periphery of both lungs. No focal ventilat ory defects are seen. The perfusion lung scan demonstrates a homogenous pattern of uptake in both lungs. No segmental or s ubsegmental defects are seen. CONCLUSION: Normal examination. Some decreased volume loss in the lingula likely related to cardiomegaly. Aston Lopez MD on June 21, 2016 at 14:13 Board Certified Radiologist. This report was verified electronically.
[2016-06-21] MEDS ORDERED: FUROSEMIDE 40 MG/4 ML VIAL IV PUSH ONE (15:15)
[2016-06-21] MEDS ORDERED: MORPHINE SULFATE 4 MG/ML INJ IV PUSH PRN (21:45)
[2016-06-22] VITALS: BP 134/60; PULSE 88; RESP 14; TEMP 97.8; O2SAT 96
[2016-06-22] MEDS: SULFAMETHOXAZOLE-TRIMETHOPRIM DS 800-160 MG TAB PO SCH ×2 (00:53→11:35)
[2016-06-22] MEDS: ACETAMINOPHEN/HYDROcodone 325 MG/10 MG TAB PO PRN ×4 (00:53→15:48)
[2016-06-22 04:00] VITALS: BP 115/59; PULSE 84; RESP 14; TEMP 98; O2SAT 97
[2016-06-22] MEDS: INSULIN ASPART SUPPLEMENTAL SCALE SQ SCH ×2 (05:47→11:36)
[2016-06-22 07:30] VITALS: O2SAT 97
[2016-06-22] MEDS: RESP: ALBUTEROL 2.5 MG/IPRATROPIUM 0.5 MG NEB (SCH) NEB ×2 (07:30→11:13)
[2016-06-22 07:53] LABS: HEMATOCRIT 31.1 % (35.0-46.0); REVIEW FLAG FINAL
[2016-06-22 08:00] VITALS: BP 141/76; PULSE 85; PULSE 91; RESP 18; TEMP 98.3; O2SAT 98
[2016-06-22 08:14] LABS: BICARBONATE 30.5 MEQ/L (21.0-32.0)
[2016-06-22] MEDS: PANTOPRAZOLE SOD 20 MG DELAYED RELEASE TAB PO SCH (08:35)
[2016-06-22] MEDS: SPIRONOLACTONE 25 MG TAB PO SCH (08:36)
[2016-06-22] MEDS: BUMETANIDE 1 MG TAB PO SCH (08:37)
[2016-06-22] MEDS: CARVEDILOL 3.125 MG TAB PO SCH (08:37)
[2016-06-22] MEDS: predniSONE 20 MG TAB PO SCH (08:38)
[2016-06-22] MEDS: ASPIRIN EC 81 MG TABEC PO SCH (08:39)
[2016-06-22] MEDS: LISINOPRIL 10 MG TAB PO SCH (08:43)
[2016-06-22] MEDS: ATORVASTATIN 80 MG TAB PO SCH (08:43)
[2016-06-22] MEDS: INSULIN DETEMIR 100 UNITS/ML VIAL SQ SCH (08:44)
[2016-06-22] MEDS: GABAPENTIN 300 MG CAP PO SCH ×2 (08:44→11:35)
[2016-06-22] MEDS: NYSTATIN 100,000 UNIT/GM CREAM 15 GM TOPICAL SCH (08:45)
[2016-06-22] MEDS: SODIUM CHLORIDE 0.9% FLUSH 10 ML FLUSH IV FLUSH SCH (08:45)
[2016-06-22] MEDS: POTASSIUM CHLORIDE 20 MEQ CONTROLLED RELEASE TAB PO SCH (08:50)
[2016-06-22] MEDS ORDERED: SENN1TAB PO (10:42)
[2016-06-22] MEDS ORDERED: BACT800T5 PO (10:42)
[2016-06-22] MEDS ORDERED: HYDR-3583 PO (10:42)
[2016-06-22] MEDS ORDERED: PRED20 PO (10:42)
--- NOTE | 2016-06-22 10:43 | HHI.DCPOC ---
Discharge Care Plan Diagnosis: (1) Chronic obstructive pulmonary disease with acute exacerbation (2) CHF exacerbation Goals to Promote Your Health * To prevent worsening of your condition and complications * To maintain your health at the optimal level Directions to Meet Your Goals Take your medications as prescribed Follow your dietary instruction Follow activity as directed Keep your appointments as scheduled Take your immunizations and boosters as scheduled If your symptoms worsen call your PCP, if no PCP go to Urgent Care Center or Emergency Room Smoking is Dangerous to Your Health. Avoid second hand smoke Call the 24-hour hour crisis hotline for domestic abuse at Melo Ramos MD R2 Jun 22, 2016 10:43
[2016-06-22] MEDS ORDERED: DOCUSATE SODIUM 50 MG/SENNA 8.6 MG TAB PO ONE (11:00)
[2016-06-22] MEDS ORDERED: SOD PHOSPHATE/SOD BIPHOSPHATE (ADULT) ENEMA 133ML RECTAL ONE (11:00)
[2016-06-22 12:00] VITALS: BP 134/64; PULSE 91; RESP 20; TEMP 98.3; O2SAT 92
[2016-06-22] MEDS ORDERED: NYST15T TOPICAL (12:43)
--- NOTE | 2016-06-22 12:43 | HHI.FPPN ---
Subjective Remarks Sitting up in chair. Reports continued pain in a waistband distribution around her lower rib cage, improved from before. Reports breathing improved from admission but still not at baseline. Her peripheral neuropathy is bothering her , but this is a chronic problem. Doing well without oxygen while we are in the room, sitting down with O2 saturation of 93%. Reports no wheezing or coughing overnight. Reports no respiratory distress. No chest pain. Swelling in lower extremities improved. Feels constipated, no bowel movement in 6 days, and requesting an enema. (Melo Ramos MD R2) Objective Vitals Vital Signs Date Time Temp Pulse Resp B/P Pulse Ox O2 Delivery O2 Flow Rate FiO2 06/22/16 08:00 Nasal Cannula 2.00 Humidified 06/22/16 08:00 98.3 85 18 141/76 98 06/22/16 07:30 97 Nasal Cannula 2.00 06/22/16 04:00 98.0 84 14 115/59 97 06/22/16 04:00 Nasal Cannula 2.00 Humidified 06/22/16 00:00 Nasal Cannula 2.00 Humidified 06/22/16 00:00 97.8 88 14 134/60 96 06/21/16 20:34 99 Nasal Cannula 2.00 06/21/16 20:00 98.0 57 20 146/61 95 06/21/16 20:00 Nasal Cannula 2.00 Humidified 06/21/16 20:00 65 06/21/16 16:00 98.5 82 20 98/55 97 I/O 06/21/16 06/21/16 06/21/16 06/22/16 06/22/16 06/22/16 07:00 15:00 23:00 07:00 15:00 23:00 Intake Total 120 ml 962 ml Output Total 400 ml 1400 ml 1150 ml 700 ml Balance -280 ml -438 ml -1150 ml -700 ml Intake Oral 120 ml 960 ml IV Total 2 ml Output Urine Total 400 ml 1400 ml 1150 ml 700 ml # Voids 4 2 # Bowel Movements 0 0 (Melo Ramos MD R2) Result Diagram: 06/22/1670406/22/16704 Imaging Last 72 hours Impressions Lung Scan-VQ Nuclear Medicine 06/21/16 0000 Signed Impressions: Service Date/Time: June 13:22 - CONCLUSION: Normal examination. Some decreased volume loss in the lingula likely related to cardiomegaly. Aston Lopez MD Chest X-Ray 06/21/16 0000 Signed Impressions: Service Date/Time: June 10:24 - CONCLUSION: Interstitial opacities in the mid and lower lung zones bilaterally that are either stable to slightly improved. Although nonspecific the appearance could represent pulmonary edema. Myles Thomas MD Objective Remarks GENERAL: obese female sitting up in chair, no distress SKIN: Erythematous patchy rash with white crusting underneath breasts and between abdominal folds & groin. CARDIOVASCULAR: NRRR. Normal S1/S2. No MRG. RESPIRATORY: Fine crackles in the bases, no respiratory distress, 93% o2 saturation on room air while sitting and talking. GASTROINTESTINAL: Abdomen soft, non-distended, non-tender. MUSCULOSKELETAL: Extremities without clubbing or cyanosis. Trace edema, improved from before. NEUROLOGICAL: Awake and alert. Cranial nerves II through XII grossly intact. Moves all extremities without difficulty. (Melo Ramos MD R2) A/P Assessment and Plan 60 yo female with PMH of CHF, COPD, HTN, DM, CAD s/p stenting x4, PAD presenting with CHF exacerbation. Discharge Planning Will discharge home with education on CHF diet, fluid and sodium restriction, taking medications as prescribed. Will continue on JAROD, beta-waldemar, diuretic, CHF diet, fluid restriction, sodium restriction. Close follow up with cardiology on discharge. Also has a program support assistant she will follow up with for her COPD. Will refer to cardiac rehab. Would benefit from palliative care sooner in her course due to the progressive nature of CHF. (Melo Ramos MD R2) Attending Attestation Patient seen, examined, and discussed with resident team. I agree with assessment and management as documented and discussed with me. Pt reports significant urine output. 93% on room air. She reports having oxygen at home. She would like to have a BM prior to discharge. Medications have been ordered to this effect. Greater than 30 minutes spent counselling and coordinating care at discharge. ( Barby Greenwood MD) Problem List: (1) CHF exacerbation Status: Acute Plan: Echo showing EF 30-35%, edema of lower extremities, enlarged heart, also with concomitant upper respiratory symptoms. X-ray showing slight improvement in pulmonary edema. V/Q scan negative for PE. - Continue home Bumex - Carvedilol 3.125 mg bid - Continue home JAROD inhibitor, spironolactone - Fluid restriction 1.5 L, sodium restriction 2g - Diet ADA cons carb + Na restriction - Cardiac rehab on discharge. - Follow up with cardiology within a week. (2) COPD (chronic obstructive pulmonary disease) Status: Chronic Plan: Stable, current symptoms likely mostly due to CHF. However, may be component of COPD. She has improvement with DuoNeb treatments. - Prednisone and Bactrim, continue for 5 day course. - Will follow up with her program support assistant. - She has oxygen at home that she can continue to use as prescribed. (3) Intertriginous candidiasis Status: Acute Plan: Rash typical of intertriginous rosalee. Itchy to patient. - Nystatin cream 1 applic BID to affected areas (4) Type 2 diabetes mellitus Status: Chronic Plan: Uncontrolled, sugars at home run 200s-300s. Glucoses normal in hospital. - Bedside glucose AC&HS - Insulin Levemir 70 units BID (home is 70 units Lantus BID) - Med-dose SSI - Continue home gabapentin for neuropathy - Education on diabetes. - Continue home medications on discharge, follow up with PCP. (5) CAD (coronary artery disease) Status: Chronic Plan: Stable - Continue home statin, aspirin (6) FEN/PPX Status: Acute Plan: Fluids: PO only, restriction 1.5 L/day Elecs: Monitor and replete PRN Nutrition: Diet ADA 2200 cons carb + 2 g Na restriction DVT: Lovenox 40 mg SQ daily GERD: Continue home PPI sdw Dr. Kendal Greenwood (Melo Ramos MD R2) Problem Qualifiers (1) CHF exacerbation: Qualified Code: I50.23 - Acute on chronic systolic congestive heart failure (2) COPD (chronic obstructive pulmonary disease): Qualified Code: J44.9 - Chronic obstructive pulmonary disease, unspecified COPD type (3) Type 2 diabetes mellitus: Qualified Code: E11.42 - Type 2 diabetes mellitus with diabetic polyneuropathy , with long-term current use of insulin (4) CAD (coronary artery disease): Qualified Code: I25.118 - Coronary artery disease of [place] artery of [place] heart with stable angina pectoris Melo Ramos MD R2 Jun 22, 2016 12:42 Barby Greenwood MD Jun 22, 2016 21:30
[2016-06-22] MEDS ORDERED: MAGNESIUM CITRATE SOLN 300 ML BTL PO ONE (15:15)
[2016-06-22 16:00] VITALS: BP 148/66; PULSE 95; RESP 20; TEMP 98.2; O2SAT 93
--- NOTE | 2016-06-22 16:20 | HHI.DS ---
Discharge Summary Admission Date Jun 18, 2016 at 13:17 Discharge Date: Jun 22, 2016 Admitting Diagnosis COPD, R PNA, CHF, Bilat Leg Pain (1) CHF exacerbation Diagnosis: Principal Plan: Echo showing EF 30-35%, edema of lower extremities, enlarged heart, also with concomitant upper respiratory symptoms. X-ray showing slight improvement in pulmonary edema. V/Q scan negative for PE. - Continue home Bumex - Carvedilol 3.125 mg bid - Continue home JAROD inhibitor, spironolactone - Fluid restriction 1.5 L, sodium restriction 2g - Diet ADA cons carb + Na restriction - Cardiac rehab on discharge. - Follow up with cardiology within a week. (2) COPD (chronic obstructive pulmonary disease) Diagnosis: Principal Plan: Stable, current symptoms likely mostly due to CHF. However, may be component of COPD. She has improvement with DuoNeb treatments. - Prednisone and Bactrim, continue for 5 day course. - Will follow up with her heel finisher. - She has oxygen at home that she can continue to use as prescribed. (3) Intertriginous candidiasis Diagnosis: Principal Plan: Rash typical of intertriginous rosalee. Itchy to patient. - Nystatin cream 1 applic BID to affected areas (4) Type 2 diabetes mellitus Diagnosis: Secondary Plan: Uncontrolled, sugars at home run 200s-300s. Glucoses normal in hospital. - Bedside glucose AC&HS - Insulin Levemir 70 units BID (home is 70 units Lantus BID) - Med-dose SSI - Continue home gabapentin for neuropathy - Education on diabetes. - Continue home medications on discharge, follow up with PCP. (5) CAD (coronary artery disease) Diagnosis: Secondary Plan: Stable - Continue home statin, aspirin (6) FEN/PPX Diagnosis: Secondary Plan: Fluids: PO only, restriction 1.5 L/day Elecs: Monitor and replete PRN Nutrition: Diet ADA 2200 cons carb + 2 g Na restriction DVT: Lovenox 40 mg SQ daily GERD: Continue home PPI sdw Dr. Kendal Greenwood Procedures None Brief History 60 year old female with PMH of CHF (last echo Mar 2016 with possibly normal EF, difficult to assess), CAD s/p stenting x4, COPD, HTN, DM on long-term insulin presenting with a 4 day history of progressively worsening SOB. Associated with orthopnea, chest pressure centrally, pleuritic chest pain on right side, and lower extremity edema. Progressively worsened over last several days since onset 4 days ago, this morning when she woke up it was severe, prompting her to come to ER. There have been no changes to her meds recently. She did not take her home medications this morning. She tried her albuterol and tiotropium inhalers which did not alleviate her symptoms. She also notes pain from her lower back downward which has been present for the last 2 weeks, worsened 1 week ago. No injury she recalls. No focal weakness, no incontinence of bowel or bladder, no numbness/tingling except in her fingertips and soles of her feet from diabetic neuropathy. CBC/BMP: 06/22/16 0705 06/22/16 0705 Significant Findings Laboratory Tests Test 06/20/16 06/20/16 06/20/16 06/21/16 09:29 17:50 17:55 06:15 Blood Urea Nitrogen 42 MG/DL (7-18) 45 MG/DL (7-18) 50 MG/DL (7-18) Creatinine 1.11 MG/DL 1.25 MG/DL 1.29 MG/DL (0.50-1.00) (0.50-1.00) (0.50-1.00) Estimat Glomerular Filtration 50 ML/MIN (>89) 44 ML/MIN (>89) 42 ML/MIN (>89) Rate Random Glucose 111 MG/DL 120 MG/DL 70 MG/DL (74-106) (74-106) (74-106) Venous Blood pH 7.28 (7.360-7.400) Venous Blood Partial Pressure 63 mmHg (44-48) CO2 Venous Blood Partial Pressure 49 mmHg (35-40) O2 Venous Blood HCO3 29 mmol/L (22-26) Venous Blood Base Excess 2.6 mmol/L (-2-2) Anion Gap 3 MEQ/L (5-15) Potassium Level 5.4 MEQ/L (3.5-5.1) Test 06/22/16 07:05 Hemoglobin 10.0 GM/DL (11.6-15.3) Hematocrit 31.1 % (35.0-46.0) Blood Urea Nitrogen 44 MG/DL (7-18) Creatinine 1.02 MG/DL (0.50-1.00) Estimat Glomerular Filtration 56 ML/MIN (>89) Rate Random Glucose 236 MG/DL (74-106) Imaging Last 72 hours Impressions Lung Scan-VQ Nuclear Medicine 06/21/16 0000 Signed Impressions: Service Date/Time: June 13:22 - CONCLUSION: Normal examination. Some decreased volume loss in the lingula likely related to cardiomegaly. Aston Lopez MD Chest X-Ray 06/21/16 0000 Signed Impressions: Service Date/Time: June 10:24 - CONCLUSION: Interstitial opacities in the mid and lower lung zones bilaterally that are either stable to slightly improved. Although nonspecific the appearance could represent pulmonary edema. Myles Thomas MD PE at Discharge GENERAL: obese female sitting up in chair, no distress SKIN: Erythematous patchy rash with white crusting underneath breasts and between abdominal folds & groin. CARDIOVASCULAR: NRRR. Normal S1/S2. No MRG. RESPIRATORY: Fine crackles in the bases, no respiratory distress, 93% o2 saturation on room air while sitting and talking. GASTROINTESTINAL: Abdomen soft, non-distended, non-tender. MUSCULOSKELETAL: Extremities without clubbing or cyanosis. Trace edema, improved from before. NEUROLOGICAL: Awake and alert. Cranial nerves II through XII grossly intact. Moves all extremities without difficulty. Hospital Course 60 year old female with PMH of CHF (last echo Mar 2016 with possibly normal EF, difficult to assess), CAD s/p stenting x4, COPD, HTN, DM on long-term insulin presenting with a 4 day history of progressively worsening SOB. Associated with orthopnea, chest pressure centrally, pleuritic chest pain on right side, and lower extremity edema. Progressively worsened over last several days since onset 4 days ago. She tried her albuterol and tiotropium inhalers which did not alleviate her symptoms. ECHO performed, her EF is 30-35%. V/Q scan performed, negative for PE. X-ray consistent with CHF. She was treated as having a CHF exacerbation, and given her home Bumex, additional Lasix as needed. She was placed on a fluid and sodium restricted diet. Her jarod inhibitor, beta waldemar, and spironolactone were continued. There was also a component of COPD exacerbation with some mild wheezing. She responded well to breathing treatments. She was also given prednisone and Bactrim for COPD exacerbation. She has O2 at home and can continue to use that as prescribed. She will continue her home medications and will follow up with cardiac rehab. She is already established with cardiology, pulmonology, and a PCP, all of which she will follow up with at discharge. She will also continue her home medications for diabetes mellitus type 2. Pt Condition on Discharge: Fair Discharge Disposition: Discharge Home Discharge Instructions DIET: Follow Instructions for: Heart Healthy Diet Speech Therapy-Diet Recommends: Regular Additional Diet Instructions: Restrict fluids to 1.5 L per day restrict sodium to 2 grams per day Activities you can perform: Weight Bearing as Rodriguez Other Activity Instructions: use walker that you have at home already Follow up Referrals: Cardiology - 1 Week with already established [facility] administrator PCP Follow-up - 1 Week with already established pcp Pulmonology - 1 Week with already established heel finisher New Orders: Cardiac Rehab - 1 Week New Medications: Hydrocodone-Acetaminophen (Hydrocodone-Acetaminophen) 10-325 mg Tab 1 TAB PO Q4H PRN PAIN SCALE 6 TO 10 #30 TAB Nystatin Topical (Nystatin Topical) 100,000 unit/gm Cream 1 APPLIC TOPICAL Q12HR #1 TUBE Prednisone (Prednisone) 20 Mg Tab 40 MG PO DAILY #3 TAB Sennosides-Docusate Sodium (Senna Plus 8.6-50 mg) 1 Tab Tab 2 TAB PO BID PRN CONSTIPATION #30 TAB Sulfamethoxazole-Trimethoprim (Bactrim DS) 800-160 Mg Tab 1 TAB PO Q12H #8 TAB Continued Medications: Albuterol 6.7 GM Inh (Proventil Hfa 6.7 GM Inh) 90 Mcg/Act Aer 2 PUFF INH Q4-6H PRN SHORTNESS OF BREATH #1 Ref [address] (Aspirin DR) 81 Mg Tabdr 81 MG PO DAILY Ref 0 TAB Atorvastatin (Atorvastatin) 80 Mg Tab 80 MG PO DAILY Cholesterol Management #30 Ref 0 TAB Bumetanide (Bumex) 1 Mg Tab 1 MG PO BID Ref 0 TAB Carvedilol (Coreg) 3.125 Mg Tab 3.125 MG PO BID heart #60 Ref 0 TAB Clopidogrel (Plavix) 75 Mg Tab 75 MG PO DAILY Blood Clot Prevention #30 Ref 0 TAB Gabapentin (Gabapentin) 300 Mg Cap 300 MG PO TID Pain Management #90 Ref 0 CAP Insulin Detemir Inj (Levemir Inj) 1,000 unit/ 10 ML Vial 70 UNITS SQ BID Do not mix with any other Insulin. Blood Sugar Management Ref 0 VIAL Ipratropium HFA 12.9 GM Inh (Atrovent HFA 12.9 GM Inh) 17 Mcg/Act Aer 2 PUFF INH TID PRN SHORTNESS OF BREATH #1 Ref 0 INHALER Lisinopril (Lisinopril) 10 Mg Tab 10 MG PO DAILY heart Days 30 TAB Nitroglycerin SL (Nitroglycerin SL) 0.4 Mg Subl 0.4 MG SL DIRECTED ONE TABLET UNDER THE TONGUE NEEDED FOR CHEST PAIN, MAY REPEAT EVERY FIVE MINUTES FOR A TOTAL OF 3 DOSES OR CALL 911 IF NO RELIEF PRN CHEST PAIN #100 Ref 0 TAB.SL Omeprazole (Omeprazole) 20 Mg Tab 20 MG PO DAILY #30 Ref 0 TAB Ondansetron Odt (Ondansetron Odt) 4 Mg Tab 4 MG SL Q6HR PRN Nausea/Vomiting #10 Ref 0 TAB Spironolactone (Spironolactone) 25 Mg Tab 25 MG PO BIDPC heart #60 Ref 0 TAB Tramadol (Tramadol) 50 Mg Tab 50 MG PO Q8H PRN PAIN Ref 0 TAB Melo Ramos MD R2 Jun 22, 2016 16:20
[2016-06-26 14:14] LABS: STAT YES
== END 2016-06-22 18:23 | disposition home or self-care (01) | DRG 292 ==
LOC: NEPE 10:16 → NEDA 13:17 → N04B 17:55
PROVIDERS: ADMIT Family Medicine; ATTEND Family Medicine
DX: I50.23 Acute on chronic systolic (congestive) heart failure (principal); J44.1 Chronic obstructive pulmonary disease with (acute) exacerbation; E11.42 Type 2 diabetes mellitus with diabetic polyneuropathy; Z99.81 Dependence on supplemental oxygen; I10 Essential (primary) hypertension; D64.9 Anemia, unspecified; B37.2 Candidiasis of skin and nail; E66.9 Obesity, unspecified; Z86.14 Personal history of Methicillin resistant Staphylococcus aureus infection; Z88.5 Allergy status to narcotic agent; Z88.0 Allergy status to penicillin; I25.118 Atherosclerotic heart disease of native coronary artery with other forms of angina pectoris; Z95.5 Presence of coronary angioplasty implant and graft; Z79.4 Long term (current) use of insulin; I73.9 Peripheral vascular disease, unspecified; Z87.891 Personal history of nicotine dependence; M54.9 Dorsalgia, unspecified; K21.9 Gastro-esophageal reflux disease without esophagitis; K59.00 Constipation, unspecified
CPT/HCPCS: 36600; 71010; 71020; 78582; 80048; 80053; 81001; 82550; 82552; 82805; 82948; 83735; 83880; 84484; 85014; 85018; 85025; 85027; 85610; 85730; 93005; 93308; 94150; 94640; 94664; 96374; 96375; A9540; A9567; J0456; J0696; J1650; J1815; J1940; J2270; J2930; J7050; J7512; Q0163

== ENCOUNTER → 2016-09-05 | Day surgery (SDC) | payer MEDICAID ==
[~2016-09-05] MED LIST changes: +BACT800T5 PO; +HYDR-3583 PO; +LACTATED RINGER'S 1000 ML INJ 1,000 ML ONE; +NYST15T TOPICAL; +PRED20 PO; +PROPOFOL 500 MG/50 ML BTL IV ONE; +SENN1TAB PO
--- NOTE | 2016-09-05 13:38 | GIPROC ---
[facility] [address] [facility], [address] COLONOSCOPY PROCEDURE REPORT EXAM DATE: 09/05/2016 PATIENT NAME: Manuela Clayton MR #: [id number] BIRTHDATE: 1955 ENDOSCOPIST: Karsten Lewis MD ORDER #: [id number] BROADCAST OPERATIONS TECHNICIAN: Zuly Rodrigues RN STATUS: outpatient INDICATIONS: The patient is a 61 yr old female here for a colonoscopy due to high risk patient with personal history of colonic polyps PROCEDURE PERFORMED: Colonoscopy, incomplete MEDICATIONS: None and Per Anesthesia. PREP QUALITY: poor ESTIMATED BLOOD LOSS: None CONSENT: The patient understands the risks and benefits of the procedure and understands that these risks include, but are not limited to: sedation, allergic reaction, infection, perforation and/or bleeding. Alternative means of evaluation and treatment include, among others: physical exam, x-rays, and/or surgical intervention. The patient elects to proceed with this endoscopic procedure. medical equipment was checked for proper function. Hand hygiene and appropriate measures for infection prevention was taken. After the risks, benefits and alternatives of the procedure were thoroughly explained, Informed consent was verified, confirmed and timeout was successfully executed by the treatment team. A digital exam revealed no abnormalities of the rectum The EC-[id number] ([id number]) endoscope was introduced through the anus and advanced to the ascending colon. The instrument was then slowly withdrawn as the colon was fully examined. COLON FINDINGS: Poor prep. The colon mucosa was otherwise normal. Retroflexion was not performed The scope was then completely withdrawn from the patient and the procedure terminated. ADVERSE EVENTS: There were no complications. IMPRESSIONS: 1. Poor prep 2. The colon mucosa was otherwise normal 3. Retroflexion was not performed 4. Revealed no abnormalities of the rectum RECOMMENDATIONS: 1. Follow-up: GI Clinic PRN 2. Yearly hemoccult 3. High fiber diet RECALL: Return 3 months Colonoscopy patient will need a two day prep Karsten Lewis MD eSigned: Karsten Lewis MD 09/05/2016 1:37 PM cc: Sean Silva M.D and Steven Colbert [facility] Danya
--- NOTE | 2016-09-05 13:41 | GIPROC ---
[facility] [address] [facility], [address] EGD PROCEDURE REPORT EXAM DATE: 09/05/2016 PATIENT NAME: Manuela Clayton MR #: [id number] BIRTHDATE: 1955 ATTENDING: Karsten Lewis MD ORDER #: [id number] SENIOR LOAN OFFICER: Zuly Rodrigues RN STATUS: outpatient INDICATIONS: The patient is a 61 yr old female here for an EGD due to epigastric abdominal pain and nausea PROCEDURE PERFORMED: EGD w/ biopsy MEDICATIONS: None, Per Anesthesia, None, and Per Anesthesia. TOPICAL ANESTHETIC: CONSENT: The patient understands the risks and benefits of the procedure and understands that these risks include, but are not limited to: sedation, allergic reaction, infection, perforation and/or bleeding. Alternative means of evaluation and treatment include, among others: physical exam, x-rays, and/or surgical intervention. The patient elects to proceed with this endoscopic procedure. medical equipment was checked for proper function. Hand hygiene and appropriate measures for infection prevention was taken. After the risks, benefits and alternatives of the procedure were thoroughly explained, Informed consent was verified, confirmed and timeout was successfully executed by the treatment team. The patient was anesthetized with topical anesthesia and the EC-[id number] ([id number]) endoscope was introduced through the mouth and advanced to the second portion of the duodenum. Retroflexed views revealed no abnormalities The gastroscope was then slowly withdrawn and removed. STOMACH: There was erythematous moderate gastritis in the gastric antrum. Multiple biopsies were performed. The endoscopy was otherwise normal. ADVERSE EVENTS: There were no complications. IMPRESSIONS: 1. There was erythematous gastritis in the gastric antrum; multiple biopsies were performed 2. Normal endoscopy otherwise 3. Retroflexed views revealed no abnormalities RECOMMENDATIONS: 1. Await biopsy results. Biopsy results will not be ready for 7-10 days. If you don't hear from us in two weeks, call our office for biopsy results. 2. Follow-up: GI clinic 4 week(s) PATIENT CONDITION: stable DISPOSITION: Home REPEAT EXAM: Karsten Lewis MD eSigned: Karsten Lewis MD 09/05/2016 1:40 PM cc: Sean Colbert [facility] Danya
== END | disposition home or self-care (01) ==
LOC: ESDC 11:03
PROVIDERS: ATTEND Internal Medicine Gastroenterology
DX: Z12.11 Encounter for screening for malignant neoplasm of colon (principal); Z86.010 Personal history of colon polyps; R10.13 Epigastric pain; R11.0 Nausea; K29.70 Gastritis, unspecified, without bleeding
CPT/HCPCS: 00740; 00810; 43239; 45378; 82948; 88305; 88312; J3010; J7120

== ENCOUNTER 2016-09-19 17:23 | Inpatient (IN) | payer MEDICAID ==
[~2016-09-19] VITALS: Ht 157.5 cm; Wt 115.6 kg
[2016-09-19] VITALS (7 sets, daily range): BP systolic 104–152; BP diastolic 61–92; PULSE 82–90; RESP 14–20; TEMP 97; O2SAT 96–99
[~2016-09-19 17:23] MED LIST changes: -LACTATED RINGER'S 1000 ML INJ 1,000 ML ONE; -PROPOFOL 500 MG/50 ML BTL IV ONE
[2016-09-19] MEDS ORDERED: BUME1TAB PO (17:41)
[2016-09-19] MEDS ORDERED: NOVOLOGP2 SQ (17:41)
[2016-09-19] MEDS ORDERED: LANTUS2P SQ (17:41)
--- NOTE | 2016-09-19 17:41 | PD ---
HPI Chief Complaint: Chest Pain Time Seen by Provider: 17:41 Travel History International Travel<30 days: No Contact w/Intl Traveler<30days: No Traveled to known affect area: No History of Present Illness HPI 61-year-old female with history of diabetes, obesity, hypertension, CAD, presents to the emergency department for evaluation of chest pain, substernal in nature, that began around 1:30 today. Patient states she took 2 sublingual nitroglycerin at home and had one spray in route via [facility] with moderately relief but currently reports 8 out of 10 pain. And reports it being similar to previous IN. Denies any nausea or vomiting. No lightheaded sensation. Patient states she does have a ringing in her ears. Denies any recent illnesses, fever, or chills. Patient states that her blood glucose has been poorly controlled. She has no other symptoms reported this time. PFSH Past Medical History Hx Anticoagulant Therapy: Yes (PLAVIX) Arthritis: Yes Asthma: Yes Autoimmune Disease: No Blood Disorders: No Anxiety: No Depression: Yes Heart Rhythm Problems: No Cancer: No Cardiac Catheterization: Yes (2 STENTS 2012/) Cardiovascular Problems: Yes High Cholesterol: Yes Chemotherapy: No Chest Pain: Yes Congestive Heart Failure: Yes COPD: Yes Cerebrovascular Accident: No Coronary Artery Disease: Yes Diabetes: Yes Diminished Hearing: No Deep Vein Thrombosis: Yes Endocrine: Yes Gastrointestinal Disorders: Yes GERD: Yes Genitourinary: Yes Hepatitis: No Hiatal Hernia: No Heparin Induced Thrombocytopen: No Hypertension: Yes Immune Disorder: No Implanted Vascular Access Dvce: No Kidney Stones: No Musculoskeletal: Yes Neurologic: Yes Psychiatric: Yes Reproductive: No Respiratory: Yes Immunizations Current: Yes Migraines: Yes Myocardial Infarction: Yes (X2 2012) Radiation Therapy: No Renal Failure: Yes (had x1 for fluid removal) Seizures: No Sickle Cell Disease: No Sleep Apnea: Yes (no bipap due claustrophobia) Thyroid Disease: No Ulcer: No Menopausal: Yes : 2 Para: 2 Tubal Ligation: Yes Past Surgical History Abdominal Surgery: Yes (gallbladder remmoved) AICD: No Appendectomy: No Arteriovenous Shunt: No Body Medical Devices: STENTS Cardiac Surgery: No Cholecystectomy: Yes Ear Surgery: No Endocrine Surgery: No Eye Surgery: Yes (lasix surgery bilat ) Genitourinary Surgery: No Gynecologic Surgery: No Insulin Pump: No Joint Replacement: No Neurologic Surgery: No Oral Surgery: No Pacemaker: No Thoracic Surgery: No Tonsillectomy: Yes Other Surgery: Yes (HEART CATH. PT STATES SHE HAS STENTS) Social History Alcohol Use: No Tobacco Use: No (quit 1 year 2014) Substance Use: No Allergies-Medications (Allergen,Severity, Reaction): Coded Allergies: Codeine (Verified Allergy, Intermediate, rash, 09/19/16) Penicillin (Verified Allergy, Intermediate, RASH,FEVER, SEIZURE, 09/19/16) Hydromorphone (Verified Adverse Reaction, Intermediate, Nausea/Vomiting, ) very lightheaded *MDRO Multi-Drug Resistant Organism (Verified Adverse Reaction, Unknown, Cleared 04/25/16, 09/19/16) MRSA (leg wound) 04/2015 MRSA PCR screen NEGATIVE - 03/26/16 & 04/25/16 Cleared per Infection Control Reported Meds & Prescriptions Reported Meds & Active Scripts Active Prednisone 20 Mg Tab 40 Mg PO DAILY Spironolactone 25 Mg Tab 25 Mg PO BIDPC Lisinopril 10 Mg Tab 10 Mg PO DAILY 30 Days Coreg (Carvedilol) 3.125 Mg Tab 3.125 Mg PO BID Gabapentin 300 Mg Cap 300 Mg PO TID Reported Lantus Inj (Insulin Glargine) 1,000 Unit/10 Ml Vial 75 Units SQ BID Novolog Inj (Insulin Aspart) 1,000 Unit/10 Ml Vial 48 Units SQ TIDAC Bumetanide 1 Mg Tab 1 Mg PO BID Aspirin DR (Aspirin) 81 Mg Tabdr 81 Mg PO DAILY Plavix (Clopidogrel Bisulfate) 75 Mg Tab 75 Mg PO DAILY Atrovent HFA 12.9 GM Inh (Ipratropium Merced) 17 Mcg/Act Aer 2 Puff INH TID PRN Proventil Hfa 6.7 GM Inh (Albuterol Sulfate) 90 Mcg/Act Aer 2 Puff INH Q4-6H PRN Nitroglycerin SL (Nitroglycerin) 0.4 Mg Subl 0.4 Mg SL DIRECTED PRN ONE TABLET UNDER THE TONGUE NEEDED FOR CHEST PAIN, MAY REPEAT EVERY FIVE MINUTES FOR A TOTAL OF 3 DOSES OR CALL 911 IF NO RELIEF Atorvastatin (Atorvastatin Calcium) 80 Mg Tab 80 Mg PO DAILY Omeprazole 20 Mg Tab 20 Mg PO DAILY Review of Systems Except as stated in HPI: all other systems reviewed are Neg Physical Exam Narrative GENERAL: Obese female patient, sitting in the bed in no acute distress SKIN: Focused skin assessment warm/dry. HEAD: Atraumatic. Normocephalic. EYES: Pupils equal and round. No scleral icterus. No injection or drainage. ENT: No nasal bleeding or discharge. Mucous membranes pink and moist. NECK: Trachea midline. No JVD. CARDIOVASCULAR: Regular rate and rhythm. 2/6 murmur appreciated. RESPIRATORY: No accessory muscle use. Minutes likely due to girth to auscultation. Breath sounds equal bilaterally. GASTROINTESTINAL: Abdomen soft, non-tender, nondistended. Hepatic and splenic margins not palpable. MUSCULOSKELETAL: No obvious deformities. No clubbing. No cyanosis. NEUROLOGICAL: Awake and alert. No obvious cranial nerve deficits. Motor grossly within normal limits. Normal speech. Data Data Last Documented VS Vital Signs Date Time Temp Pulse Resp B/P Pulse Ox O2 Delivery O2 Flow Rate FiO2 09/19/16 17:40 98 Nasal Cannula 2 09/19/16 17:40 84 18 133/68 104/61 09/19/16 17:30 97.0 Orders Electrocardiogram (09/19/16 ) Basic Metabolic Panel (Bmp) (09/19/16 17:39) B-Type Natriuretic Peptide (09/19/16 17:39) Ckmb (Isoenzyme) Profile (09/19/16 17:39) Complete Blood Count With Diff (09/19/16 17:39) D-Dimer (09/19/16 17:39) Magnesium (Mg) (09/19/16 17:39) Prothrombin Time / Inr (Pt) (09/19/16 17:39) Act Partial Throm Time (Ptt) (09/19/16 17:39) Troponin I (09/19/16 17:39) Lipase (09/19/16 17:39) Chest, Single Ap (09/19/16 17:39) Ecg Monitoring (09/19/16 17:39) Bilateral Bp Monitoring (09/19/16 17:39) Iv Access Insert/Monitor (09/19/16 17:39) Oximetry (09/19/16 17:39) Oxygen Administration (09/19/16 17:39) Aspirin Chew (Aspirin Chew) (09/19/16 17:45) Sodium Chloride 0.9% Flush (Ns Flush) (09/19/16 17:45) Sodium Chlorid 0.9% 500 Ml Inj (Ns 500 M (09/19/16 17:45) CKMB (09/19/16 17:40) CKMB% (09/19/16 17:40) Admit Order (Ed Use Only) (09/19/16:) Activity Bed Rest With Brp (09/19/16:27) Vital Signs (Adult) Q4H (09/19/16:) Cardiac Rhythm .As Directed (09/19/16:) Notify Dr: Other .PRN (09/19/16:) Notify Dr. Parameters (09/19/16:) Resp Oxygen Nasal Cannula (09/19/16 ) Diet Npo (09/20/16 Breakfast) Ckmb (Isoenzyme) Profile (09/19/16 20:40) Ckmb (Isoenzyme) Profile (09/19/16 23:40) Troponin I (09/19/16 20:40) Troponin I (09/19/16 23:40) Electrocardiogram (09/19/16 20:40) Electrocardiogram (09/19/16 23:40) ^ Obtain (09/19/16:) Sodium Chloride 0.9% Flush (Ns Flush) (09/19/16 19:30) Sodium Chloride 0.9% Flush (Ns Flush) (09/19/16 21:00) Acetaminophen (Tylenol) (09/19/16 19:30) Ondansetron Inj (Zofran Inj) (09/19/16 19:30) Nitroglycerin Sl (Nitrostat Sl) (09/19/16 19:30) Emt/Dispatcher / Telemetry ELENA.Q8H (09/19/16:27) Ghulam Bilateral/Knee High ELENA.QSHIFT (09/19/16:27) Labs Laboratory Tests Test 09/19/16 17:40 White Blood Count 14.1 TH/MM3 Red Blood Count 4.56 MIL/MM3 Hemoglobin 11.6 GM/DL Hematocrit 37.1 % Mean Corpuscular Volume 81.4 FL Mean Corpuscular Hemoglobin 25.5 PG Mean Corpuscular Hemoglobin 31.4 % Concent Red Cell Distribution Width 13.2 % Platelet Count 219 TH/MM3 Mean Platelet Volume 10.1 FL Neutrophils (%) (Auto) 72.9 % Lymphocytes (%) (Auto) 14.8 % Monocytes (%) (Auto) 10.4 % Eosinophils (%) (Auto) 1.5 % Basophils (%) (Auto) 0.4 % Neutrophils # (Auto) 10.3 TH/MM3 Lymphocytes # (Auto) 2.1 TH/MM3 Monocytes # (Auto) 1.5 TH/MM3 Eosinophils # (Auto) 0.2 TH/MM3 Basophils # (Auto) 0.1 TH/MM3 CBC Comment DIFF FINAL Differential Comment Prothrombin Time 10.4 SEC Prothromb Time International 0.9 RATIO Ratio Activated Partial 21.5 SEC Thromboplast Time D-Dimer Quantitative (PE/DVT) 1.43 MG/L FEU Sodium Level 128 MEQ/L Potassium Level 5.0 MEQ/L Chloride Level 92 MEQ/L Carbon Dioxide Level 25.5 MEQ/L Anion Gap 11 MEQ/L Blood Urea Nitrogen 46 MG/DL Creatinine 1.97 MG/DL Estimat Glomerular Filtration 26 ML/MIN Rate Random Glucose 400 MG/DL Calcium Level 9.4 MG/DL Magnesium Level 2.2 MG/DL Total Creatine Kinase 248 U/L Creatine Kinase MB 6.0 NG/ML Creatine Kinase MB % 2.4 % Troponin I 0.03 NG/ML B-Type Natriuretic Peptide 72 PG/ML Lipase 211 U/L MDM Medical Decision Making Medical Screen Exam Complete: Yes Emergency Medical Condition: Yes Medical Record Reviewed: Yes Differential Diagnosis ACS versus pleuritic pain versus costochondritis versus indigestion versus visceral pain Narrative Course 61-year-old female presents to the emergency department for evaluation chest pain. Patient appears without distress. She is reporting 8 out of 10 chest pain. She was treated for pain here in emergency department. She states this does alleviate some of her pain but it persists. Patient had a new stress test done in April of this year and was deemed high risk. Patients with moderate leukocytosis of 14.1 however she has not oral steroids. Troponin is 0.03. Lipase is without acute concern. BMP is also within normal limits. Laboratory Tests Test 09/19/16 17:40 White Blood Count 14.1 TH/MM3 Red Blood Count 4.56 MIL/MM3 Hemoglobin 11.6 GM/DL Hematocrit 37.1 % Mean Corpuscular Volume 81.4 FL Mean Corpuscular Hemoglobin 25.5 PG Mean Corpuscular Hemoglobin 31.4 % Concent Red Cell Distribution Width 13.2 % Platelet Count 219 TH/MM3 Mean Platelet Volume 10.1 FL Neutrophils (%) (Auto) 72.9 % Lymphocytes (%) (Auto) 14.8 % Monocytes (%) (Auto) 10.4 % Eosinophils (%) (Auto) 1.5 % Basophils (%) (Auto) 0.4 % Neutrophils # (Auto) 10.3 TH/MM3 Lymphocytes # (Auto) 2.1 TH/MM3 Monocytes # (Auto) 1.5 TH/MM3 Eosinophils # (Auto) 0.2 TH/MM3 Basophils # (Auto) 0.1 TH/MM3 CBC Comment DIFF FINAL Differential Comment Prothrombin Time 10.4 SEC Prothromb Time International 0.9 RATIO Ratio Activated Partial 21.5 SEC Thromboplast Time D-Dimer Quantitative (PE/DVT) 1.43 MG/L FEU Sodium Level 128 MEQ/L Potassium Level 5.0 MEQ/L Chloride Level 92 MEQ/L Carbon Dioxide Level 25.5 MEQ/L Anion Gap 11 MEQ/L Blood Urea Nitrogen 46 MG/DL Creatinine 1.97 MG/DL Estimat Glomerular Filtration 26 ML/MIN Rate Random Glucose 400 MG/DL Calcium Level 9.4 MG/DL Magnesium Level 2.2 MG/DL Total Creatine Kinase 248 U/L Creatine Kinase MB 6.0 NG/ML Creatine Kinase MB % 2.4 % Troponin I 0.03 NG/ML B-Type Natriuretic Peptide 72 PG/ML Lipase 211 U/L I have discussed the patient with my attending physician who has also assessed the patient and reviewed the findings. Due to her being high risk for cardiac event, patient will be admitted to the testing center. Blood glucose is elevated. Patient is given insulin and her nightly Levemir insulin. She'll be placed on sliding scale. Diagnosis Primary Impression: Chest pain Qualified Code: R07.9 - Chest pain, unspecified type Additional Impression: Hyperglycemia Admitting Information Admitting Physician Requests: Observation Condition: Stable Toyin Chinchilla Sep 19, 2016 17:41
[2016-09-19] MEDS ORDERED: ASPIRIN 81 MG CHEW TAB PO ONE (17:45)
[2016-09-19] MEDS ORDERED: SODIUM CHLORIDE 0.9% FLUSH 10 ML FLUSH IVF PRN (17:45)
[2016-09-19] MEDS ORDERED: SODIUM CHLORID 0.9% 500 ML INJ 500 ML IV ONE ×2 (17:45→19:45)
[2016-09-19 18:17] LABS: AUTOMATED NEUTROPHIL # 10.3 TH/MM3 (1.8-7.7); BASOPHIL # 0.1 TH/MM3 (0-0.2); BASOPHIL % 0.4 % (0.0-2.0); EOSINOPHIL # 0.2 TH/MM3 (0-0.4); EOSINOPHIL % 1.5 % (0.0-4.0); HEMATOCRIT 37.1 % (35.0-46.0); HEMO FLAGS DIFF FINAL; LYMPH % 14.8 % (9.0-44.0); LYMPHOCYTE # 2.1 TH/MM3 (1.0-4.8); MEAN CELL VOLUME 81.4 FL (80.0-100.0); MEAN CORPUSCULAR HEMOGLOBIN 25.5 PG (27.0-34.0); MEAN CORPUSCULAR HGB CONC 31.4 % (32.0-36.0); MONO % 10.4 % (0.0-8.0); NEUT % 72.9 % (16.0-70.0); PLATELET COUNT 219 TH/MM3 (150-450); RED BLOOD COUNT 4.56 MIL/MM3 (4.00-5.30); RED CELL DISTRIBUTION WIDTH 13.2 % (11.6-17.2); WHITE BLOOD COUNT 14.1 TH/MM3 (4.0-11.0)
[2016-09-19 18:35] LABS: APTT (PATIENT) 21.5 SEC (24.3-30.1); INTERNATIONAL NORMALIZED RATIO 0.9 RATIO; PROTHROMBIN TIME - PATIENT 10.4 SEC (9.8-11.6)
--- NOTE | 2016-09-19 18:39 | RADRPT ---
EXAM DATE/TIME: 09/19/2016 18:17 CORRECTION Corrected on: September 20, 2016; corrected LOCATION [facility] COMPARISON: CHEST SINGLE AP, June 21, 2016, 10:24. INDICATIONS : Chest pain and nausea. MEDICAL HISTORY : Congestive heart failure. Chronic obstructive pulmonary disease. SURGICAL HISTORY : Cholecystectomy. ENCOUNTER: Initial ACUITY: 1 day PAIN SCORE: 5/10 LOCATION: Bilateral chest FINDINGS: The lungs are clear. The heart is minimally enlarged. Mild interstitial edema is present. Minimal b ibasilar parenchymal changes are noted. The portion of the bony skeleton visualized is unremarkable. CONCLUSION: Mild interstitial edema. Beni Nava MD FACR Board Certified Radiologist. This report was verified electronically. on September 20, 2016 at 8:34 Board Certified Radiologist. This report was verified electronically. Celia An on September 20, 2016 at 10:43 Board Certified Radiologist. This report was verified electronically.
[2016-09-19 18:54] LABS: BICARBONATE 25.5 MEQ/L (21.0-32.0); MAGNESIUM 2.2 MG/DL (1.5-2.5)
[2016-09-19] MEDS ORDERED: GLUCAGON 1 MG/ML VIAL OTHER PRN (19:30)
[2016-09-19] MEDS ORDERED: SODIUM CHLORIDE 0.9% FLUSH 10 ML FLUSH IV FLUSH PRN (19:30)
[2016-09-19] MEDS ORDERED: NITROGLYCERIN 0.4 MG SL 25 TABS/BTL SL PRN (19:30)
[2016-09-19] MEDS ORDERED: ACETAMINOPHEN 500 MG CPLT PO PRN (19:30)
[2016-09-19] MEDS ORDERED: DEXTROSE 50% IN WATER 50 ML VIAL(D50) IV PRN (19:30)
[2016-09-19] MEDS ORDERED: INSULIN HUMAN REGULAR 1,000 UNITS/10 ML VIAL SQ ONE (19:45)
--- NOTE | 2016-09-19 21:04 | PD ---
Data Data Last Documented VS Vital Signs Date Time Temp Pulse Resp B/P Pulse Ox O2 Delivery O2 Flow Rate FiO2 09/19/16 17:40 98 Nasal Cannula 2 09/19/16 17:40 84 18 133/68 104/61 09/19/16 17:30 97.0 Orders Electrocardiogram (09/19/16 ) Basic Metabolic Panel (Bmp) (09/19/16 17:39) B-Type Natriuretic Peptide (09/19/16 17:39) Ckmb (Isoenzyme) Profile (09/19/16 17:39) Complete Blood Count With Diff (09/19/16 17:39) D-Dimer (09/19/16 17:39) Magnesium (Mg) (09/19/16 17:39) Prothrombin Time / Inr (Pt) (09/19/16:39) Act Partial Throm Time (Ptt) (09/19/16 17:39) Troponin I (09/19/16 17:39) Lipase (09/19/16 17:39) Chest, Single Ap (09/19/16 17:39) Ecg Monitoring (09/19/16 17:39) Bilateral Bp Monitoring (09/19/16 17:39) Iv Access Insert/Monitor (09/19/16 17:39) Oximetry (09/19/16 17:39) Oxygen Administration (09/19/16 17:39) Aspirin Chew (Aspirin Chew) (09/19/16 17:45) Sodium Chloride 0.9% Flush (Ns Flush) (09/19/16 17:45) Sodium Chlorid 0.9% 500 Ml Inj (Ns 500 M (09/19/16 17:45) CKMB (09/19/16 17:40) CKMB% (09/19/16 17:40) Admit Order (Ed Use Only) (09/19/16 19:27) Activity Bed Rest With Brp (09/19/16 19:27) Vital Signs (Adult) Q4H (09/19/16 19:27) Cardiac Rhythm .As Directed (09/19/16 19:27) Notify Dr: Other .PRN (09/19/16 19:27) Notify Dr. Parameters (09/19/16 19:27) Resp Oxygen Nasal Cannula (09/19/16 ) Diet Npo (09/20/16 Breakfast) Ckmb (Isoenzyme) Profile (09/19/16 20:40) Ckmb (Isoenzyme) Profile (09/19/16 23:40) Troponin I (09/19/16 20:40) Troponin I (09/19/16 23:40) Electrocardiogram (09/19/16 20:40) Electrocardiogram (09/19/16 23:40) ^ Obtain (09/19/16 19:27) Sodium Chloride 0.9% Flush (Ns Flush) (09/19/16 19:30) Sodium Chloride 0.9% Flush (Ns Flush) (09/19/16 21:00) Acetaminophen (Tylenol) (09/19/16 19:30) Ondansetron Inj (Zofran Inj) (09/19/16 19:30) Nitroglycerin Sl (Nitrostat Sl) (09/19/16 19:30) Book Canvasser / Telemetry ELENA.Q8H (09/19/16 19:27) Ghulam Bilateral/Knee High ELENA.QSHIFT (09/19/16 19:27) Labs Laboratory Tests Test 09/19/16 17:40 White Blood Count 14.1 TH/MM3 Red Blood Count 4.56 MIL/MM3 Hemoglobin 11.6 GM/DL Hematocrit 37.1 % Mean Corpuscular Volume 81.4 FL Mean Corpuscular Hemoglobin 25.5 PG Mean Corpuscular Hemoglobin 31.4 % Concent Red Cell Distribution Width 13.2 % Platelet Count 219 TH/MM3 Mean Platelet Volume 10.1 FL Neutrophils (%) (Auto) 72.9 % Lymphocytes (%) (Auto) 14.8 % Monocytes (%) (Auto) 10.4 % Eosinophils (%) (Auto) 1.5 % Basophils (%) (Auto) 0.4 % Neutrophils # (Auto) 10.3 TH/MM3 Lymphocytes # (Auto) 2.1 TH/MM3 Monocytes # (Auto) 1.5 TH/MM3 Eosinophils # (Auto) 0.2 TH/MM3 Basophils # (Auto) 0.1 TH/MM3 CBC Comment DIFF FINAL Differential Comment Prothrombin Time 10.4 SEC Prothromb Time International 0.9 RATIO Ratio Activated Partial 21.5 SEC Thromboplast Time D-Dimer Quantitative (PE/DVT) 1.43 MG/L FEU Sodium Level 128 MEQ/L Potassium Level 5.0 MEQ/L Chloride Level 92 MEQ/L Carbon Dioxide Level 25.5 MEQ/L Anion Gap 11 MEQ/L Blood Urea Nitrogen 46 MG/DL Creatinine 1.97 MG/DL Estimat Glomerular Filtration 26 ML/MIN Rate Random Glucose 400 MG/DL Calcium Level 9.4 MG/DL Magnesium Level 2.2 MG/DL Total Creatine Kinase 248 U/L Creatine Kinase MB 6.0 NG/ML Creatine Kinase MB % 2.4 % Troponin I 0.03 NG/ML B-Type Natriuretic Peptide 72 PG/ML Lipase 211 U/L [facility] Supervised Visit with [facility]: Yes Narrative Course The history, exam, and medical decision-making in the associated mid-level provider note were completed with my assistance. I reviewed and agree with the findings presented. I attest that I had a [id number] encounter with the patient on the same day, and personally performed and documented my assessment and findings in the medical record. *My assessment and Findings: So 61 year-old woman with history hypertension diabetes cholesterol. He presents emergent part pressure-like chest pain. States it feels like when she' s had a heart attack before. She states she only gets this chest pain when she has heart attacks in the last had a heart attack about 2 years ago. Review the records show she's been in several times a chest pain since then. She was seen in April and had chest pain with negative enzymes and a stress test that showed no new reversible perfusion defects but Hernandez Coulter abnormalities and a low EF. In any case, patient high risk, will recommend serial cardiac enzymes and cardiac evaluation of the chest pain Center. She otherwise looks well. History seems inconsistent with PE. Her only risk factor for PE is obesity. No other evidence of PE. The LEAD SYSTEMS ANALYST saw her ordered a d-dimer. I would not have ordered the d-dimer and I do not think that she has a PE. Recommend against further evaluation. For PE Diagnosis Primary Impression: Chest pain Qualified Code: R07.9 - Chest pain, unspecified type Condition: Aston Son MD Sep 19, 2016 21:03
[2016-09-19] MEDS ORDERED: MORPHINE SULFATE 4 MG/ML INJ IV PUSH ONE (21:15)
[2016-09-19] MEDS ORDERED: ONDANSETRON HCL 4 MG/2 ML VIAL IV PUSH ONE (21:15)
[2016-09-19] MEDS ORDERED: INSULIN DETEMIR 100 UNITS/ML VIAL SQ STA (21:44)
--- NOTE | 2016-09-19 22:15 | EKG ---
Date Performed: 09/19/2016 Time Performed: 21:07:07 PTAGE: 61 years EKG: ATRIAL SENSED, VENTRICULAR PACED ABNORMAL ECG PREVIOUS TRACING : 09/19/2016 17.36 No significant change from previous tracing noted. DOCTOR: Tushar Obrien Interpretating Date/Time 09/19/2016 22:14:31
--- NOTE | 2016-09-19 22:28 | EKG ---
Date Performed: 09/19/2016 Time Performed: 17:36:24 PTAGE: 61 years EKG: ATRIAL SENSED, VENTRICULAR PACED ABNORMAL ECG PREVIOUS TRACING : 06/18/2016 21.49 No significant change from previous tracing noted. DOCTOR: Tushar Obrien Interpretating Date/Time 09/19/2016 22:27:50
[2016-09-19] MEDS: SODIUM CHLORIDE 0.9% FLUSH 10 ML FLUSH IV FLUSH SCH (22:43)
[2016-09-19] MEDS: INSULIN NovoLIN REGULAR SUPPLEMENTAL SCALE SQ SCH (22:44)
[2016-09-19] MEDS ORDERED: MORPHINE SULFATE 8 MG/ML INJ IV PUSH ONE (23:30)
[2016-09-20] VITALS (28 sets, daily range): BP systolic 63–106; BP diastolic 36–60; PULSE 63–85; RESP 11–28; TEMP 97.8–98.4; O2SAT 9–100
[2016-09-20 01:43] LABS: CKMB 5.9 NG/ML (0.5-3.6)
[2016-09-20] MEDS: ONDANSETRON HCL 4 MG/2 ML VIAL IV PRN ×2 (03:37→17:36)
[2016-09-20] MEDS ORDERED: SODIUM CHLOR 0.9% 250 ML INJ 250 ML IV ONE (05:00)
[2016-09-20 06:50] LABS: BLOOD GAS BASE EXCESS 4.3 mmol/L (-2-2); BLOOD GAS CARBOXYHEMOGLOBIN 1.2 % (0-4); BLOOD GAS HCO3 29 mmol/L (22-26); BLOOD GAS O2 HGB SATURATION 85 % (90-100); BLOOD GAS OXYGEN CONTENT 13.9 Vol % (12.0-20.0); BLOOD GAS PCO2 50 mmHg (38-42); BLOOD GAS PO2 53 mmHG (61-120); BLOOD GAS TOTAL HGB 11.7 G/DL (12.0-16.0); TEMP CORR TO 98.6
[2016-09-20 06:51] LABS: CRITICAL VALUE YES; DRAW SITE LT RADIAL; FIO2 21 %; NUMBER OF ARTERIAL PUNCTURES 1; STAT YES; ULNAR PULSE PRESENT
[2016-09-20] MEDS: INSULIN NovoLIN REGULAR SUPPLEMENTAL SCALE SQ SCH ×6 (07:00→19:36)
[2016-09-20] MEDS ORDERED: SODIUM CHLORID 0.9% 500 ML INJ 500 ML IV ONE (09:45)
[2016-09-20] MEDS ORDERED: RESP: ALBUTEROL 2.5 MG/IPRATROPIUM 0.5 MG NEB (PRN) NEB (09:45)
--- NOTE | 2016-09-20 09:54 | MH ---
cc: CORBY PARSON MD DATE OF ADMISSION: 09/19/2016 HISTORY This is a 61-year-old woman who was admitted to the hospital for chest discomfort. This began yesterday at approximately 1:30. It was described as a heaviness or tightness in her chest and actually had a feeling an elephant sitting on the chest. She came to the emergency room where electrocardiogram revealed no acute ST or T-wave changes she was admitted due to the chest pain. The chest pain has been persistent now for approximately 18 hours. No real associated shortness of breath, diaphoresis or nausea has been present. She has a history of coronary artery disease and notes that she has had three heart attacks with stents in the past, last being in 2013, and notes that this is similar to her prior discomfort. She did try sublingual nitroglycerin both prior to coming into the hospital and in the hospital with no substantial relief in her discomfort. She has had 4 mg of morphine which has relieved her discomfort from a 10 to a 6 and she appears to be resting comfortably. She has a history of type 2 diabetes which has been poorly controlled as well as hypertension and hyperlipidemia. She has been faithful with her medications. She does follow regularly with Dr. Acosta for cardiology care. PAST MEDICAL HISTORY Significant for - 1. Heart failure in the past. 2. Mild renal insufficiency. MEDICATIONS AT HOME 1. Lantus insulin 75 units subcu twice daily. 2. NovoLog 48 units t.i.d. after meals. 3. Bumex 1 mg twice daily. 4. Aspirin 81 mg daily. 5. Clopidogrel 75 mg daily, 6. Atrovent and Proventil inhalers on an as-needed basis. 7. Atorvastatin 80 mg daily. 8. Omeprazole 20 mg daily. 9. Carvedilol 3.125 mg twice a day. 10. Gabapentin 300 mg three times daily. 11. Lisinopril 10 mg daily. 12. Spirolactone 25 twice daily. 13. Prednisone 20 mg daily. ALLERGIES CODEINE. PENICILLIN. ADVERSE REACTION TO HYDROMORPHONE with being lightheaded, to include nausea and vomiting. REVIEW OF SYSTEMS Apart from above, is significant for a significant peripheral neuropathy. PHYSICAL EXAMINATION VITAL SIGNS: Blood pressure is 110/70. Pulse is 80 and regular. NECK: There is no neck vein distension. LUNGS: Essentially clear. CARDIOVASCULAR: Exam reveals distant heart tones. There is no murmur or gallop noted. ABDOMEN: Soft. There is rather diffuse mild tenderness throughout. No guarding or rebound is present. No masses are palpable. EXTREMITIES: Reveal no edema. ELECTROCARDIOGRAM Reveals normal sinus rhythm with right bundle branch block and left axis deviation. Nonspecific T-wave changes are present. LABORATORY EXAMINATION Her troponins are normal x 3. White count is elevated at 14,000. Troponins are normal x 3, as noted above. Her glucose on admission was quite elevated at 400. Sodium is somewhat low at 128. ASSESSMENT She has a chest discomfort of uncertain etiology with rather poorly controlled type 2 diabetes. D-dimer was elevated and we have drawn a blood gas to further evaluate and rule out pulmonary emboli. We will hold off on CTA at this point time and in as much as her creatinine is 1.97. RECOMMENDATIONS Further recommendations will pend the outcome of her ABG. MD MATTHEW Sagastume/KIMMY /6:33 AM /9:45 AM
--- NOTE | 2016-09-20 10:22 | RADRPT ---
EXAM DATE/TIME: 09/20/2016 10:04 [facility] COMPARISON: CHEST PA & LAT, June 18, 2016, 17:27. INDICATIONS : Short of breath since yesterday MEDICAL HISTORY : Congestive heart failure. Chronic obstructive pulmonary disease. Cardiovascular disease. SURGICAL HISTORY : Coronary artery stent. Cholecystectomy. ENCOUNTER: Subsequent ACUITY: 2 days PAIN SCORE: 1/10 LOCATION: Bilateral chest FINDINGS: PA and lateral views of the chest show cardiomegaly with pulmonary vascular engorgement. No infiltrat e or effusion. A degenerative spine. CONCLUSION: Cardiomegaly with pulmonary vascular engorgement. No pulmonary edema observed. Unruly Bronson Jr., MD on September 20, 2016 at 10:19 Board Certified Radiologist. This report was verified electronically.
[2016-09-20] MEDS: ATORVASTATIN 80 MG TAB PO SCH (10:24)
[2016-09-20] MEDS: ASPIRIN EC 81 MG TABEC PO SCH (10:24)
[2016-09-20] MEDS: CLOPIDOGREL 75 MG TAB PO SCH (10:24)
[2016-09-20] MEDS: SODIUM CHLORIDE 0.9% FLUSH 10 ML FLUSH IV FLUSH SCH ×2 (10:25→19:36)
[2016-09-20] MEDS: PANTOPRAZOLE SOD 20 MG DELAYED RELEASE TAB PO SCH (10:25)
[2016-09-20] MEDS ORDERED: POTASSIUM PHOSPHATE MONOBASIC 500 MG TAB PO/TUBE PRN (11:15)
[2016-09-20] MEDS ORDERED: POTASSIUM PHOSPHATE MONOBASIC 500 MG TAB PO PRN (11:15)
[2016-09-20] MEDS ORDERED: MAGNESIUM SULFATE INJ 2 GM in SODIUM CHLORIDE 0.9% INJ 96 ML IV PRN (11:15)
[2016-09-20] MEDS ORDERED: POTASSIUM CHLOR 40 MEQ PREMIX 100 ML IV PRN ×2 (11:15)
[2016-09-20] MEDS ORDERED: DEXTROSE 50% IN WATER 50 ML VIAL(D50) IV PUSH PRN (11:15)
[2016-09-20] MEDS ORDERED: MAGNESIUM SULFATE INJ 4 GM in SODIUM CHLORIDE 0.9% INJ 92 ML IV PRN (11:15)
[2016-09-20] MEDS ORDERED: POTASSIUM CHLOR 20 MEQ PREMIX 100 ML IV PRN ×2 (11:15)
[2016-09-20] MEDS ORDERED: SODIUM PHOSPHATE INJ 30 MMOL in SODIUM CHLOR 0.9% 250 ML INJ 240 ML IV PRN (11:15)
[2016-09-20] MEDS ORDERED: MAGNESIUM OXIDE 400 MG TAB PO PRN (11:15)
[2016-09-20] MEDS ORDERED: POTASSIUM PHOSPHATE INJ 30 MMOL in SODIUM CHLOR 0.9% 250 ML INJ 250 ML IV PRN (11:15)
--- NOTE | 2016-09-20 12:36 | RADRPT ---
EXAM DATE/TIME: 09/20/2016 10:51 [facility] COMPARISON: CHEST PA & LAT, September 20, 2016, 10:04. LUNG VENTILATION & PERFUSION SCAN, June 21, 2016, 13:22. INDICATIONS : Chest pain. DOSE: 1.3 mCi Tc99m DTPA 8.6 mCi Tc99m MAA MEDICAL HISTORY : Diabetes mellitus type 2. Cardiovascular disease Myocardial infarction. Exsmoker. HTN SURGICAL HISTORY : Cholecystectomy. ENCOUNTER: Initial ACUITY: 1 day PAIN SCALE: 0/10 LOCATION: chest TECHNIQUE: Following five minutes of tidal breathing of DTPA aerosol, planar images of the lungs were performed in eight projections. The patient was then injected with MAA, and eight-view perfusion scan was perf ormed. FINDINGS: There is a homogeneous pattern of aerosol delivery to the periphery of both lungs. No focal ventilat ory defects are seen. The perfusion lung scan demonstrates a homogenous pattern of uptake in both lungs. No segmental or s ubsegmental defects are seen. CONCLUSION: No scintigraphic evidence to suggest acute pulmonary emboli. Cardiomegaly. Unruly Bronson Jr., MD on September 20, 2016 at 12:31 Board Certified Radiologist. This report was verified electronically.
--- NOTE | 2016-09-20 13:25 | EKG ---
Date Performed: 09/20/2016 Time Performed: 01:17:28 PTAGE: 61 years EKG: Sinus rhythm POSSIBLE LEFT ATRIAL ENLARGEMENT INTRAVENTRICULAR CONDUCTION DELAY POSSIBLE LEFT VENTRICULAR HYPERTR OPHY INFERIOR MYOCARDIAL INFARCTION OLD ABNORMAL ECG PREVIOUS TRACING : 09/20/2016 01.16 Since previous tracing, no significant change noted DOCTOR: Carlos Pennington Interpretating Date/Time 09/20/2016 13:15:46
--- NOTE | 2016-09-20 13:25 | EKG ---
Date Performed: 09/20/2016 Time Performed: 03:07:38 PTAGE: 61 years EKG: Sinus rhythm POSSIBLE LEFT ATRIAL ENLARGEMENT INTRAVENTRICULAR CONDUCTION DELAY POSSIBLE LEFT VENTRICULAR HYPERTR OPHY INFERIOR MYOCARDIAL INFARCTION ABNORMAL ECG PREVIOUS TRACING : 09/20/2016 01.17 Since previous tracing, no significant change noted DOCTOR: Carlos Pennington Interpretating Date/Time 09/20/2016 13:14:46
--- NOTE | 2016-09-20 13:25 | EKG ---
Date Performed: 09/20/2016 Time Performed: 06:11:00 PTAGE: 61 years EKG: Sinus rhythm WITH FIRST DEGREE AV BLOCK POSSIBLE LEFT ATRIAL ENLARGEMENT RIGHT BUNDLE BRANCH BLOCK LEFT VENTRICUL AR HYPERTROPHY AND ST-T CHANGE POSSIBLE ANTERIOR MYOCARDIAL INFARCTION INTERPRETATION BASED ON A DEFA ULT AGE OF 40 YEARS NO PREVIOUS TRACING DOCTOR: Carlos Pennington Interpretating Date/Time 09/20/2016 13:13:57
--- NOTE | 2016-09-20 13:30 | PD.CONS ---
[facility] Service Critical Care Medicine Consult Requested By Dr. Pennington Reason for Consult hypotension Primary Care Physician Sean Silva DO History of Present Illness This is a 61-year-old woman with a history of prior heart failure with reduced EF and multiple prior admissions for chest pain. She presented overnight last night with atypical chest pain. She was evaluated by the ct tech and since the chest pain center for rule out ACS. Throughout the night, she was progressively hypotensive. She complained of significant chest pain. VQ scan was normal. Her creatinine is mildly elevated. Medical care medicine was consulted to evaluate and manage her hypertension. When I evaluated patient, she complained of severe chest pain substernally. She had exquisite point tenderness at the sternum itself. When I asked her to point with one finger she points directly lateral to either side of the sternum near the costochondral junctions. She denies any change to her baseline dyspnea on exertion. She denies any orthopnea. There is no aggravating or alleviating factors to her chest pain. She has to eat. She states she is hungry. Laboratory data is significant for a white count of 14 which is now downtrending to 12, troponins are negative 3, BNP which is essentially negative and downtrending, creatinine 1.97 which is rising to 2.1. Her baseline appears to be 0.6. Patient denies nausea, vomiting, abdominal pain. Denies fever, chills, cough, sputum production. Denies dysuria, frequency of urination. Denies really any other complaints at all other than this new very localized substernal chest pain. She does rate the pain 8 out of 10. She describes it as a crushing substernal pain Review of Systems ROS Limitations: Clinical Condition Constitutional: DENIES: Fever, Chills Respiratory: DENIES: Sputum production, Shortness of breath Cardiovascular: COMPLAINS OF: Chest pain, DENIES: Palpitations, Syncope, Dyspnea on Exertion, PND, Lower Extremity Edema, Orthopnea Gastrointestinal: DENIES: Abdominal pain, Black stools, Bloody stools, Constipation, Diarrhea, Nausea, Vomiting Neurologic: DENIES: Headache, Localized weakness Psychiatric: DENIES: Confusion ROS Remainder review review of systems is otherwise negative unless stated in the history of present illness Past Family Social History Allergies: Coded Allergies: Codeine (Verified Allergy, Intermediate, rash, 09/19/16) Penicillin (Verified Allergy, Intermediate, RASH,FEVER, SEIZURE, 09/19/16) Hydromorphone (Verified Adverse Reaction, Intermediate, Nausea/Vomiting, ) very lightheaded *MDRO Multi-Drug Resistant Organism (Verified Adverse Reaction, Unknown, Cleared 04/25/16, 09/19/16) MRSA (leg wound) 04/2015 MRSA PCR screen NEGATIVE - 03/26/16 & 04/25/16 Cleared per Infection Control Uncoded Allergies: MORPHIN (Adverse Reaction, Intermediate, Hypotension, 09/20/16) PT SEES DOUBLE AND HYPOTENSION Past Medical History Prior heart failure with reduced EF, EF 30-35% Mild renal insufficiency Type 2 diabetes Hypertension Hyperlipidemia Past Surgical History The patient was in distress from her chest pain and unable to provide a complete past surgical history. No prior history of sternotomy or intrathoracic operations Reported Medications Lantus 75 units twice a day NovoLog 40 units 3 times a day Bumex 1 mg twice a day Aspirin 81 mg daily Plavix 75 mg daily Atrovent and Proventil when necessary Lipitor 80 mg daily Omeprazole 20 mg daily Carvedilol 3.125 mg twice a day Gabapentin 300 mg 3 times a day Lisinopril 10 mg daily Special lactone 25 mg daily Prednisone 20 mg daily Active Ordered Medications See MAR Family History Reviewed and found to be noncontributory to her acute illness Social History Does not smoke Physical Exam Vital Signs Vital Signs Date Time Temp Pulse Resp B/P Pulse Ox O2 Delivery O2 Flow Rate FiO2 09/20/16 11:17 98.0 70 18 106/60 99 09/20/16 11:00 80/45 09/20/16 10:30 85/48 09/20/16 09:00 65 85/60 09/20/16 08:19 97.8 68 16 80/54 97 Manual Cuff/Palpation 09/20/16 08:00 68 09/20/16 07:36 97 Nasal Cannula 2.00 09/20/16 06:03 90/60 09/20/16 05:45 98 2.00 09/20/16 05:40 89/49 09/20/16 05:37 98/58 09/20/16 05:30 70/40 09/20/16 05:23 66 18 63/36 09/20/16 05:06 18 79/48 98 09/20/16 04:42 63 79/43 09/20/16 04:11 106/55 09/20/16 03:04 68 94/51 97 09/20/16 03:02 91/49 09/20/16 01:43 74 103/57 09/20/16 01:36 75 20 90/53 9 09/19/16 23:10 88 14 141/82 98 09/19/16 22:00 84 16 148/88 97 09/19/16 21:05 90 16 150/90 96 09/19/16 20:10 88 14 152/92 99 09/19/16 19:41 99 Nasal Cannula 2.00 09/19/16 17:40 98 Nasal Cannula 2 09/19/16 17:40 84 18 133/68 98 Nasal Cannula 2 104/61 09/19/16 17:40 18 98 Nasal Cannula 2 09/19/16 17:30 86 18 98 Nasal Cannula 2 09/19/16 17:30 97.0 82 20 136/83 97 Physical Exam GENERAL: Morbidly obese female, lying in bed, in distress from chest pain HEENT: Normocephalic. Atraumatic. Pupils equal, round, reactive, conjugate. Mucous membranes are moist NECK: Trachea is midline. JVD is unable to be assessed secondary to her body habitus. CHEST: Significant tenderness to palpation over the sternum and in particular the costochondral junctions. Normal rest her rate. Equal chest rise. Clear to auscultation bilaterally. CARDIOVASCULAR: Normal rate and regular rhythm. S1 and S2 without appreciable murmurs. ABDOMEN: Morbidly obese, Soft, nontender, nondistended. No guarding. MUSCULOSKELETAL: Pulses 2+. No peripheral edema. NEUROLOGICAL: RASS 0. CAM -. GCS 15. No gross focal motor or sensory deficits Laboratory Laboratory Tests Test 09/19/16 09/19/16 09/20/16 09/20/16 17:40 21:01 00:50 06:38 White Blood Count 14.1 Red Blood Count 4.56 Hemoglobin 11.6 Hematocrit 37.1 Mean Corpuscular Volume 81.4 Mean Corpuscular Hemoglobin 25.5 Mean Corpuscular Hemoglobin 31.4 Concent Red Cell Distribution Width 13.2 Platelet Count 219 Mean Platelet Volume 10.1 Neutrophils (%) (Auto) 72.9 Lymphocytes (%) (Auto) 14.8 Monocytes (%) (Auto) 10.4 Eosinophils (%) (Auto) 1.5 Basophils (%) (Auto) 0.4 Neutrophils # (Auto) 10.3 Lymphocytes # (Auto) 2.1 Monocytes # (Auto) 1.5 Eosinophils # (Auto) 0.2 Basophils # (Auto) 0.1 CBC Comment DIFF FINAL Differential Comment Prothrombin Time 10.4 Prothromb Time International 0.9 Ratio Activated Partial 21.5 Thromboplast Time D-Dimer Quantitative (PE/DVT) 1.43 Sodium Level 128 Potassium Level 5.0 Chloride Level 92 Carbon Dioxide Level 25.5 Anion Gap 11 Blood Urea Nitrogen 46 Creatinine 1.97 Estimat Glomerular Filtration 26 Rate Random Glucose 400 Calcium Level 9.4 Magnesium Level 2.2 Total Creatine Kinase 248 195 231 Creatine Kinase MB 6.0 6.0 5.9 Creatine Kinase MB % 2.4 3.1 2.6 Troponin I 0.03 0.02 0.02 B-Type Natriuretic Peptide 72 Lipase 211 Blood Gas Puncture Site LT RADIAL Blood Gas Patient Temperature 98.6 Blood Gas HCO3 29 Blood Gas Base Excess 4.3 Blood Gas Oxygen Saturation 85 Arterial Blood pH 7.39 Arterial Blood Partial 50 Pressure CO2 Arterial Blood Partial 53 Pressure O2 Arterial Blood Oxygen Content 13.9 Arterial Blood 1.2 Carboxyhemoglobin Arterial Blood Methemoglobin 1.0 Blood Gas Hemoglobin 11.7 Blood Gas Inspired Oxygen 21 Result Diagram: 09/19/16 1740 09/19/161739 Imaging Last Impressions Lung Scan-V Nuclear Medicine 09/20/16 0000 Signed Impressions: Service Date/Time: September 10:51 - CONCLUSION: No scintigraphic evidence to suggest acute pulmonary emboli. Cardiomegaly. Unruly Bronson Jr., MD Chest X-Ray 09/20/16 0000 Signed Impressions: Service Date/Time: September 10:04 - CONCLUSION: Cardiomegaly with pulmonary vascular engorgement. No pulmonary edema observed. Unruly Bronson Jr., MD Chest CT 09/20/16 0000 Signed Impressions: Service Date/Time: Wednesday, September 21, 2016 02:33 - CONCLUSION: 1. Atelectatic changes are noted as above. 2. Coronary artery calcification. 3. Mild infiltrates in the upper lobes. Shai Patel MD Assessment and Plan Assessment and Plan Assessment: This is a 61-year-old female with multiple risk factors for coronary artery disease and prior coronary artery disease who presents with crushing substernal chest pain and hypotension. The chest pain clearly has a musculoskeletal component, and costochondritis cannot be excluded at this time. I this point we've ruled out acute coronary syndrome quite thoroughly, and I do not even think that a heart failure exacerbation really is the cause of this given her normal BNP. To complete the workup. We will order echocardiogram to compare to the one done in June of this year, we will order a chest CT to evaluate for anatomic or structural defects which could be causing her pain. Also give us good intraparenchymal views of the lung to rule out any infectious process there. From a hypertension standpoint, this could be medication induced from her home medications. She could be slightly intravascularly dehydrated, but with her heart failure and past history gentle fluid should be given judiciously. Given her normal lactate it is unlikely that this is shock of any kind. I agree with admitting her to the ICU for close monitoring, but think risk-benefit at this point is in favor of conservative management and not starting vasopressor therapy. Highly complex medical patient with multiple problems. I'm also unclear what her acute kidney injury secondary to. This could be actually more chronic renal insufficiency from her heart failure and probably early cardiorenal syndrome. I think we should get nephrology involved and weigh in. If she continues to stabilize she could leave out of the ICU MB transferred to the floor. Plan: Heart Failure with reduced EF -- repeat 2d echo, compare to 06/2016 Hypotension -- differential includes hypovolemia vs. cardiogenic cause vs. sepsis. low suspicion for sepsis. no infectious etiology suspected. no source. -- will send blood cultures -- trend wbc -- will be forced to start vasopressor therapy if map < 60 mmHg. -- hold anti-hypertensives Elevated Cr, apparent Acute kidney injury -- unclear if this is truly acute, or just chronically worsening renal function secondary to poorly controlled diabetes and cardiorenal syndrome -- will consult nephrology -- very judicious fluids. encourage po intake. Atypical Chest pain -- appears very musculoskeletal in nature -- high suspicion this could be costochondritis -- unfortunately, with her serum Cr, NSAIDs are contra-indicated. -- continue prn morphine -- trop negative x 3. Hyponatremia -- trend sodiums -- likely hypervolemic hyponatremia secondary to heart failure with renal dysfunction -- send urine osms, serum osms, urine sodium. Dispo: admit to ICU for close monitoring. Code Status Full Code Markell Gonzales MD Sep 20, 2016 13:30
[2016-09-20] MEDS ORDERED: MORPHINE SULFATE 4 MG/ML INJ IV ONE (15:00)
[2016-09-20 15:14] LABS: AUTOMATED NEUTROPHIL # 7.6 TH/MM3 (1.8-7.7); BASOPHIL # 0.1 TH/MM3 (0-0.2); BASOPHIL % 0.5 % (0.0-2.0); EOSINOPHIL # 0.4 TH/MM3 (0-0.4); EOSINOPHIL % 3.4 % (0.0-4.0); HEMATOCRIT 38.8 % (35.0-46.0); HEMO FLAGS DIFF FINAL; LYMPH % 26.9 % (9.0-44.0); LYMPHOCYTE # 3.3 TH/MM3 (1.0-4.8); MEAN CELL VOLUME 82.4 FL (80.0-100.0); MEAN CORPUSCULAR HGB CONC 31.5 % (32.0-36.0); MONO % 7.1 % (0.0-8.0); NEUT % 62.1 % (16.0-70.0); PLATELET COUNT 193 TH/MM3 (150-450); RED BLOOD COUNT 4.71 MIL/MM3 (4.00-5.30); RED CELL DISTRIBUTION WIDTH 13.2 % (11.6-17.2); WHITE BLOOD COUNT 12.3 TH/MM3 (4.0-11.0)
[2016-09-20 17:00] LABS: ALKALINE PHOSPHATASE 112 U/L (45-117); ALT (GPT) 22 U/L (10-53); ANION GAP 14 MEQ/L (5-15); AST (GOT) 26 U/L (15-37); BICARBONATE 20.9 MEQ/L (21.0-32.0); BLOOD UREA NITROGEN 51 MG/DL (7-18); CHLORIDE 98 MEQ/L (98-107); GLOMERULAR FILTRATION RATE 23 ML/MIN (>89); POTASSIUM 4.6 MEQ/L (3.5-5.1); SODIUM (NA) 133 MEQ/L (136-145); TOTAL BILIRUBIN ADULT 0.3 MG/DL (0.2-1.0)
--- NOTE | 2016-09-20 18:08 | ECHRPT ---
Indication: EF in CHF CONCLUSIONS Mildly dilated left ventricle. Mild concentric left ventricular hypertrophy. The left ventricular systolic function is severely reduced with an estimated ejection fraction in th e range of 30-35%. There is global left ventricular dysfunction. Doppler parameters are consistent with impaired left ventricular relaxtion (grade 1 diastolic dysfun ction). There is trace tricuspid valve regurgitation. BP: 85 / 48 HR: 65 Rhythm: Sinus MEASUREMENTS (Male / Female) Normal Values Technical Quality:Technically difficult study 2D ECHO LV Diastolic Diameter PLAX 5.9 cm 4.2 - 5.9 / 3.9 - 5.3 cm LV Systolic Diameter PLAX 5.1 cm IVS Diastolic Thickness 1.2 cm 0.6 - 1.0 / 0.6 - 0.9 cm LVPW Diastolic Thickness 0.8 cm 0.6 - 1.0 / 0.6 - 0.9 cm LV Relative Wall Thickness 0.3 LVOT Diameter 2.3 cm Aortic Root Diameter 2.8 cm M-MODE AV Cusp Separation MM 1.5 cm DOPPLER AV Peak Velocity 141.0 cm/s AV Peak Gradient 8.0 mmHg AV Mean Gradient 4.0 mmHg AV Velocity Time Integral 25.6 cm LVOT Peak Velocity 94.7 cm/s LVOT Peak Gradient 3.6 mmHg LVOT Velocity Time Integral 20.4 cm LVOT Cardiac Index 2394.6 cm/minm AV Area Cont Eq vti 3.3 cm AV Area Cont Eq pk 2.8 cm Mitral E Point Velocity 70.1 cm/s Mitral A Point Velocity 91.8 cm/s Mitral E to A Ratio 0.8 LV E' Lateral Velocity 4.1 cm/s Mitral E to LV E' Lateral Ratio 17.0 LV E' Septal Velocity 3.4 cm/s Mitral E to LV E' Septal Ratio 20.9 PV Peak Velocity 60.9 cm/s PV Peak Gradient 1.5 mmHg FINDINGS LEFT VENTRICLE Mildly dilated left ventricle. Mild concentric left ventricular hypertrophy. The left ventricular systolic function is severely reduced with an estimated ejection fraction in th e range of 30-35%. There is global left ventricular dysfunction. Doppler parameters are consistent with impaired left ventricular relaxtion (grade 1 diastolic dysfun ction). RIGHT VENTRICLE Normal right ventricular size and systolic function. LEFT ATRIUM The left atrial size is normal. RIGHT ATRIUM The right atrial size is normal. ATRIAL SEPTUM Normal atrial septal thickness without atrial level shunting by limited color doppler interrogation. AORTA The aortic root and proximal ascending aorta are normal in size on limited imaging. MITRAL VALVE Structurally normal mitral valve. No mitral valve stenosis or regurgitation. AORTIC VALVE Trileaflet aortic valve. No aortic valve stenosis or regurgitation. TRICUSPID VALVE There is trace tricuspid valve regurgitation. PULMONARY VALVE The pulmonary valve is not well visualized. VESSELS The inferior vena cava is normal in size. PERICARDIUM No pericardial effusion. Aston Dahl MD, FACC (Electronically Signed) Final Date:20 September 2016 18:07
[2016-09-20] MEDS: MORPHINE SULFATE 8 MG/ML INJ IV PUSH PRN (19:30)
[2016-09-20] MEDS: INSULIN DETEMIR 100 UNITS/ML VIAL SQ SCH (19:36)
[2016-09-21] VITALS (13 sets, daily range): BP systolic 69–138; BP diastolic 38–62; PULSE 70–91; RESP 11–20; TEMP 97.9–98.4; O2SAT 94–97
[2016-09-21] MEDS: INSULIN NovoLIN REGULAR SUPPLEMENTAL SCALE SQ SCH ×9 (03:00→20:39)
--- NOTE | 2016-09-21 03:33 | RADRPT ---
EXAM DATE/TIME: 09/21/2016 02:33 [place] COMPARISON: CT THORAX W/O CONTRAST, April 12, 2015, 14:15. INDICATIONS : Chest pain. RADIATION DOSE: 9.89 CTDIvol (mGy) MEDICAL HISTORY : Cardiovascular disease. Hypertension. SURGICAL HISTORY : Stents ENCOUNTER: Initial ACUITY: 1 day PAIN SCALE: 5/10 LOCATION: chest TECHNIQUE: Volumetric scanning of the chest was performed. Using automated exposure control and adjustment of t he mA and/or kV according to patient size, radiation dose was kept as low as reasonably achievable to obtain optimal diagnostic quality images. DICOM format image data is available electronically for r eview and comparison. Follow-up recommendations for incidentally detected pulmonary nodules are based at a minimum on nodul e size and patient risk factors according to Fleischner Society Guidelines. FINDINGS: Mild atelectatic changes are noted in the lingula and both lower lobes. There no effusions. Minimal g round glass infiltrate in the right upper lobe. Minimal peripheral tree in bud infiltrate left upper lobe. Coronary artery calcification and atherosclerotic calcification of the aorta. No pathologically enlarged lymph nodes are there is cardiomegaly. Osseous structures are intact. CONCLUSION: 1. Atelectatic changes are noted as above. 2. Coronary artery calcification. 3. Mild infiltrates in the upper lobes. Shai Patel MD on September 21, 2016 at 3:29 Board Certified Radiologist. This report was verified electronically.
[2016-09-21] MEDS ORDERED: ALBUMIN HUMAN 5% 25 GM/500 ML BOTTLE IV ONE (04:45)
[2016-09-21 05:24] LABS: HEMATOCRIT 36.4 % (35.0-46.0); MEAN CELL VOLUME 80.5 FL (80.0-100.0); MEAN CORPUSCULAR HEMOGLOBIN 26.3 PG (27.0-34.0); MEAN CORPUSCULAR HGB CONC 32.6 % (32.0-36.0); PLATELET COUNT 177 TH/MM3 (150-450); RED BLOOD COUNT 4.52 MIL/MM3 (4.00-5.30); RED CELL DISTRIBUTION WIDTH 13.3 % (11.6-17.2); WHITE BLOOD COUNT 11.2 TH/MM3 (4.0-11.0)
[2016-09-21] MEDS: MORPHINE SULFATE 8 MG/ML INJ IV PUSH PRN ×3 (05:24→20:32)
[2016-09-21 05:25] LABS: REVIEW FLAG FINAL
[2016-09-21] MEDS: PANTOPRAZOLE SOD 20 MG DELAYED RELEASE TAB PO SCH (08:45)
[2016-09-21] MEDS: CLOPIDOGREL 75 MG TAB PO SCH (08:45)
[2016-09-21] MEDS: ATORVASTATIN 80 MG TAB PO SCH (08:45)
[2016-09-21] MEDS: INSULIN DETEMIR 100 UNITS/ML VIAL SQ SCH ×2 (08:45→20:37)
--- NOTE | 2016-09-21 08:56 | HHI.PR ---
Subjective Remarks in no acute distress but uncomfortable with chest pain. BP is better although fluctuates. d/w the RN. Objective Vitals Vital Signs Date Time Temp Pulse Resp B/P Pulse Ox O2 Delivery O2 Flow Rate FiO2 09/21/16 06:00 81 09/21/16 04:00 98.0 70 11 69/38 95 09/21/16 04:00 70 09/21/16 02:00 80 09/21/16 00:00 97.9 90 20 138/62 94 09/21/16 00:00 75 09/20/16 22:00 66 09/20/16 20:00 79 09/20/16 20:00 98.4 79 11 89/52 95 09/20/16 19:20 100 Nasal Cannula 09/20/16 18:00 85 09/20/16 16:00 85 09/20/16 16:00 98.2 85 22 91/44 90 09/20/16 14:00 68 09/20/16 13:00 80 09/20/16 13:00 98.4 80 28 95/50 99 09/20/16 11:17 98.0 70 18 106/60 99 09/20/16 11:00 80/45 09/20/16 10:30 85/48 09/20/16 09:00 65 85/60 I/O 09/20/16 09/20/16 09/20/16 09/21/16 09/21/16 09/21/16 07:00 15:00 23:00 07:00 15:00 23:00 Intake Total 240 ml 350 ml 2850 ml Output Total 450 ml 0 ml 600 ml Balance -210 ml 350 ml 2250 ml Intake Oral 240 ml 350 ml 350 ml IV Total 0 ml 2500 ml Output Urine Total 450 ml 0 ml 600 ml # Bowel Movements 0 1 1 Result Diagram: 09/21/16 0445 09/20/16 1548 Imaging Last Impressions Lung Scan-VQ Nuclear Medicine 09/20/16 0000 Signed Impressions: Service Date/Time: September 10:51 - CONCLUSION: No scintigraphic evidence to suggest acute pulmonary emboli. Cardiomegaly. Unruly Bronson Jr., MD Chest X-Ray 09/20/16 0000 Signed Impressions: Service Date/Time: September 10:04 - CONCLUSION: Cardiomegaly with pulmonary vascular engorgement. No pulmonary edema observed. Unruly Bronson Jr., MD Chest CT 09/20/16 0000 Signed Impressions: Service Date/Time: Wednesday, September 21, 2016 02:33 - CONCLUSION: 1. Atelectatic changes are noted as above. 2. Coronary artery calcification. 3. Mild infiltrates in the upper lobes. Shai Patel MD Objective Remarks GENERAL: This is a well-nourished, well-developed patient, in no apparent distress. CARDIOVASCULAR: Regular rate and regular rhythm without murmurs, gallops, or rubs. RESPIRATORY: Clear to auscultation. Breath sounds equal bilaterally. No wheezes , rales, or rhonchi. GASTROINTESTINAL: Abdomen soft, non-tender, nondistended. Normal, active bowel sounds MUSCULOSKELETAL: Extremities without clubbing, cyanosis, or edema. NEURO: Alert & Oriented x4 to person, place, time, situation. Moves all ext x4 Procedures none Medications and IVs Current Medications Aspirin (Aspirin Chew) 162 mg ONCE ONCE PO Last administered on 09/19/16 17: 49; Start 09/19/16 at 17:45; Stop 09/19/16 at 17:46; Status DC Sodium Chloride 2 ml 2 ml UNSCH PRN IVF FLUSH AFTER USING IV ACCESS Last administered on 09/19/16 17:50; Start 09/19/16 at 17:45; Stop 09/20/16 at 04:55 ; Status DC Sodium Chloride (NS 500 ml Inj) 500 ml @ 500 mls/hr ONCE ONCE IV Last administered on 09/19/16 17:50; Start 09/19/16 at 17:45; Stop 09/19/16 at 18:44 ; Status DC Sodium Chloride (NS Flush) 2 ml UNSCH PRN IV FLUSH FLUSH AFTER USING IV ACCESS ; Start 09/19/16 at 19:30 Sodium Chloride (NS Flush) 2 ml BID IV FLUSH Last administered on 09/20/16 19: 36; Start 09/19/16 at 21:00 Acetaminophen (Tylenol) 500 mg Q4H PRN PO HEADACHE; Start 09/19/16 at 19:30 Ondansetron HCl (Zofran Inj) 4 mg Q6H PRN IV NAUSEA Last administered on 17:36; Start 09/19/16 at 19:30 Nitroglycerin (Nitrostat Sl) 0.4 mg Q5M PRN SL CHEST PAIN; Start 09/19/16 at 19 :30 Dextrose (D50w (Vial) Inj) 50 ml UNSCH PRN IV HYPOGLYCEMIA-SEE COMMENTS; Start 09/19/16 at 19:30; Stop 09/20/16 at 11:26; Status DC Glucagon (Glucagon Inj) 1 mg UNSCH PRN OTHER HYPOGLYCEMIA-SEE COMMENTS; Start 09/19/16 at 19:30 Insulin Human Regular 1 1 ACHS SLIDING SCALE SQ Last administered on 19:35; Start 09/19/16 at 21:00 Sodium Chloride (NS 500 ml Inj) 500 ml @ 500 mls/hr BOLUS ONCE IV Last administered on 09/19/16 20:16; Start 09/19/16 at 19:45; Stop 09/19/16 at 20:44 ; Status DC Insulin Human Regular (NovoLIN R INJ) 10 units ONCE ONCE SQ Last administered on 09/19/16 20:18; Start 09/19/16 at 19:45; Stop 09/19/16 at 19:46; Status DC Morphine Sulfate (Morphine Inj) 4 mg ONCE ONCE IV PUSH ; Start 09/19/16 at 21: 15; Stop 09/19/16 at 23:22; Status DC Ondansetron HCl (Zofran Inj) 4 mg ONCE ONCE IV PUSH Last administered on 22:45; Start 09/19/16 at 21:15; Stop 09/19/16 at 21:16; Status DC Insulin Detemir (Levemir Inj) 75 units ONCE STAT SQ Last administered on 22:45; Start 09/19/16 at 21:44; Stop 09/19/16 at 21:45; Status DC Morphine Sulfate 4 mg 4 mg ONCE ONCE IV PUSH Last administered on 09/20/16 03 :27; Start 09/19/16 at 23:30; Stop 09/19/16 at 23:31; Status DC Sodium Chloride (NS 250 ml Inj) 250 ml @ 100 mls/hr ONCE ONCE IV Last administered on 09/20/16 04:57; Start 09/20/16 at 05:00; Stop 09/20/16 at 07:29 ; Status DC Aspirin (Ecotrin Ec) 81 mg DAILY PO Last administered on 09/20/16 10:24; Start 09/20/16 at 09:45 Atorvastatin Calcium (Lipitor) 80 mg DAILY PO Last administered on 09/21/16 08 :45; Start 09/20/16 at 09:45 Clopidogrel Bisulfate (Plavix) 75 mg DAILY PO Last administered on 09/21/16 08 :45; Start 09/20/16 at 09:45 Insulin Detemir (Levemir Inj) 75 units BID SQ Last administered on 09/21/16 08 :45; Start 09/20/16 at 21:00 Pantoprazole Sodium (Protonix) 20 mg DAILY PO Last administered on 09/21/16 08 :45; Start 09/20/16 at 09:45 Albuterol/ Ipratropium 1 ampule 1 ampule Q4HR NEB PRN NEB SOB/wheezing; Start 09/20/16 at 09:45 Sodium Chloride (NS 500 ml Inj) 500 ml @ 500 mls/hr BOLUS ONCE IV Last administered on 09/20/16 10:23; Start 09/20/16 at 09:45; Stop 09/20/16 at 10:44 ; Status DC Magnesium Oxide 800 mg 800 mg UNSCH PRN PO For Magnesium 1.2 - 1.6 mg/dL; Start 09/20/16 at 11:15 Magnesium Sulfate 4 gm/Sodium Chloride 100 ml @ 50 mls/hr UNSCH PRN IV For Magnesium 0.9 - 1.1 mg/dL; Start 09/20/16 at 11:15 Magnesium Sulfate 2 gm/Sodium Chloride 100 ml @ 50 mls/hr UNSCH PRN IV For Magnesium 1.2 - 1.6 mg/dL; Start 09/20/16 at 11:15 Potassium Chloride 100 ml @ 50 mls/hr Q2H PRN IV For Potassium 2.8 - 3.2 mEq/L ; Start 09/20/16 at 11:15 Potassium Chloride 100 ml @ 50 mls/hr Q2H PRN IV For Potassium 3.3 - 3.5 mEq/L ; Start 09/20/16 at 11:15 Potassium Chloride 100 ml @ 50 mls/hr Q2H PRN IV For Potassium 2.8 - 3.2 mEq/L ; Start 09/20/16 at 11:15 Potassium Chloride (KCl 40 Meq Premix Inj) 100 ml @ 25 mls/hr UNSCH PRN IV For Potassium 3.3 - 3.5 mEq/L; Start 09/20/16 at 11:15 Potassium Phosphate (K-Phos) 2,000 mg Q4H PRN PO For Phosphorus < 2.5 mg/dL; Start 09/20/16 at 11:15 Potassium Phosphate 2000 mg 2,000 mg UNSCH PRN PO/TUBE SEE LABEL COMMENTS; Start 09/20/16 at 11:15 Potassium Phosphate 30 mmol/ Sodium Chloride 260 ml @ 42 mls/hr UNSCH PRN IV SEE LABEL COMMENTS; Start 09/20/16 at 11:15 Sodium Phosphate/ Sodium Chloride (Sodium Phosphate Inj/NS 250 ml Inj) 250 ml @ 42 mls/hr UNSCH PRN IV For Phosphorus < 2.5 mg/dL; Start 09/20/16 at 11:15 Dextrose (D50w (Vial) Inj) 25 ml UNSCH PRN IV PUSH HYPOGLYCEMIA-SEE COMMENTS; Start 09/20/16 at 11:15 Insulin Human Regular (NovoLIN R SUPPLEMENTAL SCALE) 1 ACHS AND 3AM SQ ; Start 09/20/16 at 16:00 Morphine Sulfate (Morphine Inj) 2 mg NOW ONCE IV Last administered on 15:16; Start 09/20/16 at 15:00; Stop 09/20/16 at 15:01; Status DC Morphine Sulfate (Morphine Inj) 2 mg Q4H PRN IV PUSH PAIN 1-10 Last administered on 09/21/16 05:24; Start 09/20/16 at 17:45 Albumin Human (Albumin 5% Inj) 25 gm ONCE ONCE IV Last administered on 05:24; Start 09/21/16 at 04:45; Stop 09/21/16 at 04:46; Status DC A/P Assessment and Plan A/P Heart Failure with reduced EF -- repeat 2d echo, compare to 06/2016 Hypotension -- differential includes hypovolemia vs. cardiogenic cause vs. sepsis. low suspicion for sepsis. no infectious etiology suspected. no source. -- follow blood cultures -- trend wbc -- hold anti-hypertensives Elevated Cr, apparent Acute kidney injury -- unclear if this is truly acute, or just chronically worsening renal function secondary to poorly controlled diabetes and cardiorenal syndrome -- consulted nephrology -- very judicious fluids. encourage po intake. Atypical Chest pain with history of CAD- s/p stent placement -- appears very musculoskeletal in nature -- high suspicion this could be costochondritis -- unfortunately, with her serum Cr, NSAIDs are contra-indicated. -- continue prn morphine -- trop negative x 3. 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 Lizeth Mccray MD Sep 21, 2016 08:56
[2016-09-21] MEDS: ASPIRIN EC 81 MG TABEC PO SCH (09:00)
[2016-09-21 10:15] LABS: BICARBONATE 25.4 MEQ/L (21.0-32.0); POTASSIUM 4.2 MEQ/L (3.5-5.1)
[2016-09-21] MEDS: diphenhydrAMINE HCL 25 MG CAP PO PRN (12:29)
--- NOTE | 2016-09-21 18:57 | PD.CONS ---
HPI Service Nephrology Consult Requested By Dr. Gonzales Reason for Consult Acute renal insufficiency Primary Care Physician Sean Silva, DO History of Present Illness Patient is a 61-year-old female with history of congestive heart failure with chest pain. The patient has been admitted and had an elevation in the creatinine baseline creatinine is 0.6 her creatinine was 2.1 she is diuresing and today's creatinine is 1.5 already. Patient denies any long-term kidney problems as such, her EF is 30-35% she was hypotensive and received fluid boluses Review of Systems Constitutional: COMPLAINS OF: Fatigue Respiratory: COMPLAINS OF: Shortness of breath Past Family Social History Allergies: Coded Allergies: Codeine (Verified Allergy, Intermediate, rash, 09/19/16) Penicillin (Verified Allergy, Intermediate, RASH,FEVER, SEIZURE, 09/19/16) Hydromorphone (Verified Adverse Reaction, Intermediate, Nausea/Vomiting, ) very lightheaded *MDRO Multi-Drug Resistant Organism (Verified Adverse Reaction, Unknown, Cleared 04/25/16, 09/19/16) MRSA (leg wound) 04/2015 MRSA PCR screen NEGATIVE - 03/26/16 & 04/25/16 Cleared per Infection Control Uncoded Allergies: MORPHIN (Adverse Reaction, Intermediate, Hypotension, 09/20/16) PT SEES DOUBLE AND HYPOTENSION Past Medical History Prior heart failure with reduced EF, EF 30-35% Coronary artery disease Mild renal insufficiency Type 2 diabetes Hypertension Hyperlipidemia Past Surgical History Coronary artery stents Cholecystectomy Reported Medications Reported Meds & Active Scripts Active Prednisone 20 Mg Tab 40 Mg PO DAILY Spironolactone 25 Mg Tab 25 Mg PO BIDPC Lisinopril 10 Mg Tab 10 Mg PO DAILY 30 Days Coreg (Carvedilol) 3.125 Mg Tab 3.125 Mg PO BID Gabapentin 300 Mg Cap 300 Mg PO TID Reported Lantus Inj (Insulin Glargine) 1,000 Unit/10 Ml Vial 75 Units SQ BID Novolog Inj (Insulin Aspart) 1,000 Unit/10 Ml Vial 48 Units SQ TIDAC Bumetanide 1 Mg Tab 1 Mg PO BID Aspirin DR (Aspirin) 81 Mg Tabdr 81 Mg PO DAILY Plavix (Clopidogrel Bisulfate) 75 Mg Tab 75 Mg PO DAILY Atrovent HFA 12.9 GM Inh (Ipratropium Kenvir) 17 Mcg/Act Aer 2 Puff INH TID PRN Proventil Hfa 6.7 GM Inh (Albuterol Sulfate) 90 Mcg/Act Aer 2 Puff INH Q4-6H PRN Nitroglycerin SL (Nitroglycerin) 0.4 Mg Subl 0.4 Mg SL DIRECTED PRN ONE TABLET UNDER THE TONGUE NEEDED FOR CHEST PAIN, MAY REPEAT EVERY FIVE MINUTES FOR A TOTAL OF 3 DOSES OR CALL 911 IF NO RELIEF Atorvastatin (Atorvastatin Calcium) 80 Mg Tab 80 Mg PO DAILY Omeprazole 20 Mg Tab 20 Mg PO DAILY Active Ordered Medications Current Medications Medications (Trade) Dose Ordered Sig/Nury Route Start Time Stop Time Status Last Admin (NS Flush) 2 ml UNSCH PRN IV FLUSH 09/19/16 19:30 (NS Flush) 2 ml BID IV FLUSH 09/19/16 21:00 09/20/16 19:36 (Tylenol) 500 mg Q4H PRN PO 09/19/16 19:30 (Zofran Inj) 4 mg Q6H PRN IV 09/19/16 19:30 09/20/16 17:36 (Nitrostat Sl) 0.4 mg Q5M PRN SL 09/19/16 19:30 (Glucagon Inj) 1 mg UNSCH PRN OTHER 09/19/16 19:30 (Ecotrin Ec) 81 mg DAILY PO 09/20/16 09:45 09/21/16 09:00 (Lipitor) 80 mg DAILY PO 09/20/16 09:45 09/21/16 08:45 (Plavix) 75 mg DAILY PO 09/20/16 09:45 09/21/16 08:45 (Levemir Inj) 75 units BID SQ 09/20/16 21:00 09/21/16 08:45 (Protonix) 20 mg DAILY PO 09/20/16 09:45 09/21/16 08:45 Magnesium Oxide 800 mg 800 mg UNSCH PRN PO 09/20/16 11:15 Magnesium Sulfate 4 gm/Sodium Chloride 100 ml @ 50 mls/hr UNSCH PRN IV 09/20/16 11:15 Magnesium Sulfate 2 gm/Sodium Chloride 100 ml @ 50 mls/hr UNSCH PRN IV 09/20/16 11:15 Potassium Chloride 100 ml @ 50 mls/hr Q2H PRN IV 09/20/16 11:15 Potassium Chloride 100 ml @ 50 mls/hr Q2H PRN IV 09/20/16 11:15 Potassium Chloride 100 ml @ 50 mls/hr Q2H PRN IV 09/20/16 11:15 (KCl 40 Meq Premix Inj) 100 ml @ 25 mls/hr UNSCH PRN IV 09/20/16 11:15 (K-Phos) 2,000 mg Q4H PRN PO 09/20/16 11:15 Potassium Phosphate 2000 mg 2,000 mg UNSCH PRN PO/TUBE 09/20/16 11:15 Potassium Phosphate 30 mmol/ Sodium Chloride 260 ml @ 42 mls/hr UNSCH PRN IV 09/20/16 11:15 (Sodium Phosphate Inj/NS 250 ml Inj) 250 ml @ 42 mls/hr UNSCH PRN IV 09/20/16 11:15 (D50w (Vial) Inj) 25 ml UNSCH PRN IV PUSH 09/20/16 11:15 (Morphine Inj) 2 mg Q4H PRN IV PUSH 09/20/16 17:45 09/21/16 11:26 (Benadryl) 25 mg Q8H PRN PO 09/21/16 12:00 09/21/16 12:29 Family History Noncontributory Social History Denies smoking uses to smoke Stopped About 4 months , no alcohol use Physical Exam Vital Signs Vital Signs Date Time Temp Pulse Resp B/P Pulse Ox O2 Delivery O2 Flow Rate FiO2 09/21/16 18:00 79 09/21/16 16:00 79 09/21/16 16:00 98.3 86 18 111/52 97 09/21/16 14:00 79 09/21/16 12:00 98.0 86 18 92/52 97 09/21/16 12:00 79 09/21/16 10:16 94 Nasal Cannula 1.00 09/21/16 10:00 79 09/21/16 08:00 79 09/21/16 08:00 98.0 91 11 115/53 95 09/21/16 06:00 81 09/21/16 04:00 98.0 70 11 69/38 95 09/21/16 04:00 70 09/21/16 02:00 80 09/21/16 00:00 97.9 90 20 138/62 94 09/21/16 00:00 75 09/20/16 22:00 66 09/20/16 20:00 79 09/20/16 20:00 98.4 79 11 89/52 95 09/20/16 19:20 100 Nasal Cannula Physical Exam GENERAL: Well-nourished, well-developed patient. SKIN: Warm and dry. HEAD: Normocephalic. EYES: No scleral icterus. No injection or drainage. NECK: Supple, trachea midline. No JVD or lymphadenopathy. CARDIOVASCULAR: Regular rate and rhythm without murmurs, gallops, or rubs. RESPIRATORY: Breath sounds equal bilaterally. No accessory muscle use. GASTROINTESTINAL: Abdomen soft, non-tender, nondistended. EXTREMITIES: No cyanosis, or edema. NEUROLOGICAL: Awake, alert, and oriented x 3. Non-focal. Laboratory Laboratory Tests Test 09/21/16 09/21/16 04:45 09:35 White Blood Count 11.2 Red Blood Count 4.52 Hemoglobin 11.9 Hematocrit 36.4 Mean Corpuscular Volume 80.5 Mean Corpuscular Hemoglobin 26.3 Mean Corpuscular Hemoglobin 32.6 Concent Red Cell Distribution Width 13.3 Platelet Count 177 Mean Platelet Volume 10.2 Sodium Level 135 Potassium Level 4.2 Chloride Level 100 Carbon Dioxide Level 25.4 Anion Gap 10 Blood Urea Nitrogen 47 Creatinine 1.56 Estimat Glomerular Filtration 34 Rate Random Glucose 128 Calcium Level 9.0 Random Cortisol 12.2 Date/Time Procedure Status Source Growth 09/20/16 15:48 Aerobic Blood Culture - Preliminary Resulted Blood Peripheral NO GROWTH IN 1 DAY 09/20/16 15:48 Anaerobic Blood Culture - Final Resulted Blood Peripheral QNS - SEE AEROBE REPORT Result Diagram: 09/21/16 0445 09/21/16 0935 Imaging Last Impressions Lung Scan-VQ Nuclear Medicine 09/20/16 0000 Signed Impressions: Service Date/Time: September 10:51 - CONCLUSION: No scintigraphic evidence to suggest acute pulmonary emboli. Cardiomegaly. Unruly Bronson Jr., MD Chest X-Ray 09/20/16 0000 Signed Impressions: Service Date/Time: September 10:04 - CONCLUSION: Cardiomegaly with pulmonary vascular engorgement. No pulmonary edema observed. Unruly Bronson Jr., MD Chest CT 09/20/16 0000 Signed Impressions: Service Date/Time: Wednesday, September 21, 2016 02:33 - CONCLUSION: 1. Atelectatic changes are noted as above. 2. Coronary artery calcification. 3. Mild infiltrates in the upper lobes. Shai Patel MD Assessment and Plan Problem List: (1) Acute kidney injury Plan: Patient was hypotensive and responded to fluids and blood pressure is better renal function improved and feels she has prerenal azotemia Avoid nephrotoxins Observation at this point and follow BMP (2) Type 2 diabetes mellitus Plan: Continue to monitor (3) Chest pain Plan: Continue to monitor Ping Negro MD Sep 21, 2016 18:57
[2016-09-21] MEDS: SODIUM CHLORIDE 0.9% FLUSH 10 ML FLUSH IV FLUSH SCH (20:39)
--- NOTE | 2016-09-21 22:30 | MB ---
cc: NATE YOU M.D., MARIA I. M.D. DATE OF CONSULTATION 09/21/16 REASON FOR CONSULTATION Chest pain. HISTORY OF PRESENT ILLNESS Ms. Clayton is a pleasant 61-year-old female with a history of coronary artery disease, peripheral artery disease, ___ diabetes, history of moderate cardiomyopathy and prior congestive heart failure. History of obstructive sleep apnea, not wearing CPAP therapy. History of hyperlipidemia. She used to smoke and stopped about two years ago. She comes in with chest discomfort and abdominal discomfort. The pain is reproduced by deep palpation. It has been lasting for about 3 days, not completely resolving since that time. No associated diaphoresis or nausea or palpitations. She sleeps on 2 to 3 pillows but no PND. No leg swellings lately. Denies syncope or palpitations. She has felt weak earlier today with her low blood pressure. ALLERGIES CODEINE, PENICILLIN. FAMILY HISTORY Not known. SOCIAL HISTORY Used to smoke up to 2 years ago, she stopped smoking. Denies ETOH abuse or recreational drug abuse. PAST MEDICAL/SURGICAL HISTORY As mentioned above. Chronic renal insufficiency, peripheral artery disease, peripheral neuropathy, GERD, morbidly obesity, obstructive sleep apnea, not wearing CPAP therapy. History of coronary artery disease and stenting in the past. Cholecystectomy. Tonsillectomy. LASIK surgery. Multiple peripheral interventions including atherectomy and balloon angioplasty of the left SFA February 2016. January 2014 cardiac catheterization showed an LVEF of 40%. Diagonal branch of 90% with a 50/60% RCA disease and she had a drug eluting stent placed in left circumflex at that time. REVIEW OF SYSTEMS 12 point system review was unremarkable except what is mentioned in the history of present illness. She had vague abdominal pains but no hematemesis, hematochezia. No nausea or vomiting. HOME MEDICATIONS Include: 1. Insulin. 2. Bumex 1 milligram p.o. twice a day. 3. Ecotrin 81 milligrams p.o. daily. 4. Plavix 75 milligrams p.o. daily. 5. Atrovent/Proventil inhalers. 6. Lipitor 80 milligrams p.o. q. h.s. 7. Carvedilol 3.125 milligrams p.o. twice a day. 8. Lisinopril 10 milligrams p.o. daily. 9. Spironolactone 25 milligrams p.o. daily. 10. Prednisone 20 milligrams p.o. daily. Currently her blood pressure medications were on hold because of episodes of hypotension during this admission. PHYSICAL EXAMINATION GENERAL: A 61-year-old lady lying in bed, morbidly obese. Alert and oriented times three. Answers questions appropriately. Continues to have chest discomfort precipitated by deep palpation on the chest wall just at the ___ border. VITAL SIGNS: Blood pressure 105/75 mmHg, pulse of 86 per minute and regular, respirations 14 per minute, afebrile. HEENT: Head is normocephalic. Pupils are equal and reactive. Throat is within normal limits. NECK: Supple. No carotids noted. Thick neck. No jugular venous distention noted, however, it is difficult with her thick neck. Trachea is midline. LUNGS: Clear to auscultation and percussion. CARDIOVASCULAR: S1, S2 are normal with an S4 gallop and no associated murmurs. ABDOMEN: Moderately obese. Lax, nontender. Normoactive bowel sounds. No organomegaly, no masses felt. EXTREMITIES: No clubbing, cyanosis or edema. Dry skin in the lower extremities. NEUROLOGIC: Grossly intact with no focal deficits. RECTAL: Exam deferred. LABORATORY DATA Initially her white count was 14.1 and that is trending down. Hemoglobin 11.6, platelet of 219. She came in with a BUN of 46, creatinine 1.97 and it is improving. CK-MB percent is normal and Troponin I times three is normal. BNP is normal, on the 12th it was 72 and repeat yesterday was 3. BUN and creatinine is 47 and 1.56 and sodium is up to 135. CARDIOLOGY STUDIES Her EKG showed sinus rhythm with first degree AV block. Left ___, right bundle branch block with LVH and nonspecific STT wave changes. Possible anterior infarction and not significantly changed from prior tracing. 1. ASSESSMENT/ RECOMMENDATIONS Moderate cardiomyopathy with history of congestive heart failure. Currently, no signs of congestive heart failure with negative BNP twice. We should reintroduce back her initially the Coreg and then low dose JAROD inhibitor if her blood pressure sustains and remains to be stable. I am not sure her episode of hypotension is related to what. However, critical care is on the case and I fully agree with Dr. Gonzales's assessment and work-up. 2. Atypical chest discomfort. 3. No acute ischemic changes on her EKG and negative troponins times three and clearly precipitated by deep palpation. Would continue with analgesics on p.r.n. basis and that is up to the medical team and critical care. 4. Once her blood pressure is stabilizes we should resume back her Coreg and JAROD inhibitors and possibly a lower dose of diuretics. 5. Renal is on the case and will follow with you. I thank you for the consultation. MD RITCHIE Rm/ASHLEY /9:42 PM /9:55 PM
[2016-09-21] MEDS: ONDANSETRON HCL 4 MG/2 ML VIAL IV PRN (23:26)
[2016-09-22] VITALS (14 sets, daily range): BP systolic 89–146; BP diastolic 47–69; PULSE 70–99; RESP 13–22; TEMP 98.3–99.2; O2SAT 91–99
[2016-09-22] MEDS: diphenhydrAMINE HCL 25 MG CAP PO PRN ×2 (01:55→14:00)
[2016-09-22] MEDS: MORPHINE SULFATE 8 MG/ML INJ IV PUSH PRN ×3 (01:55→23:46)
[2016-09-22] MEDS: INSULIN NovoLIN REGULAR SUPPLEMENTAL SCALE SQ SCH ×9 (02:02→21:00)
[2016-09-22] MEDS: ONDANSETRON HCL 4 MG/2 ML VIAL IV PRN (06:49)
[2016-09-22] MEDS: ASPIRIN EC 81 MG TABEC PO SCH (08:08)
[2016-09-22] MEDS: CLOPIDOGREL 75 MG TAB PO SCH (08:08)
[2016-09-22] MEDS: PANTOPRAZOLE SOD 20 MG DELAYED RELEASE TAB PO SCH (08:09)
[2016-09-22] MEDS: ATORVASTATIN 80 MG TAB PO SCH (08:09)
[2016-09-22] MEDS: INSULIN DETEMIR 100 UNITS/ML VIAL SQ SCH ×2 (08:14→20:30)
--- NOTE | 2016-09-22 08:23 | HHI.PR ---
Subjective Remarks f/u; chest pain/ hypotension resting comfortably with no distress. BP has improved. chest pain/ tenderness is better. d/w the RN and no acute issues over night. Objective Vitals Vital Signs Date Time Temp Pulse Resp B/P Pulse Ox O2 Delivery O2 Flow Rate FiO2 09/22/16 07:28 98 Nasal Cannula 2.00 09/22/16 06:00 84 09/22/16 04:00 92 09/22/16 04:00 98.7 87 15 106/57 91 09/22/16 02:00 89 09/22/16 00:00 98.3 79 14 89/47 99 09/22/16 00:00 99 09/21/16 22:00 81 09/21/16 20:00 98.4 84 13 105/58 96 Manual Cuff/Auscultation 09/21/16 20:00 82 09/21/16 18:00 79 09/21/16 16:00 79 09/21/16 16:00 98.3 86 18 111/52 97 09/21/16 14:00 79 09/21/16 12:00 98.0 86 18 92/52 97 09/21/16 12:00 79 09/21/16 10:16 94 Nasal Cannula 1.00 09/21/16 10:00 79 I/O 09/21/16 09/21/16 09/21/16 09/22/16 09/22/16 09/22/16 06:59 14:59 22:59 06:59 14:59 22:59 Intake Total 2850 ml 380 ml 350 ml 700 ml Output Total 600 ml 850 ml 750 ml 600 ml Balance 2250 ml -470 ml -400 ml 100 ml Intake Oral 350 ml 380 ml 350 ml 700 ml IV Total 2500 ml 0 ml 0 ml Output Urine Total 600 ml 850 ml 750 ml 600 ml # Bowel Movements 1 1 0 0 Result Diagram: 09/21/16 0445 09/21/16 0935 Imaging Last Impressions Lung Scan-VQ Nuclear Medicine 09/20/16 0000 Signed Impressions: Service Date/Time: September 10:51 - CONCLUSION: No scintigraphic evidence to suggest acute pulmonary emboli. Cardiomegaly. Unruly Bronson Jr., MD Chest X-Ray 09/20/16 0000 Signed Impressions: Service Date/Time: September 10:04 - CONCLUSION: Cardiomegaly with pulmonary vascular engorgement. No pulmonary edema observed. Unruly Bronson Jr., MD Chest CT 09/20/16 0000 Signed Impressions: Service Date/Time: Wednesday, September 21, 2016 02:33 - CONCLUSION: 1. Atelectatic changes are noted as above. 2. Coronary artery calcification. 3. Mild infiltrates in the upper lobes. Shai Patel MD Objective Remarks GENERAL: This is a well-nourished, well-developed patient, in no apparent distress. CARDIOVASCULAR: Regular rate and regular rhythm without murmurs, gallops, or rubs. RESPIRATORY: Clear to auscultation. Breath sounds equal bilaterally. No wheezes , rales, or rhonchi. chest is tender on palpation. GASTROINTESTINAL: Abdomen soft, non-tender, nondistended. Normal, active bowel sounds MUSCULOSKELETAL: Extremities without clubbing, cyanosis, or edema. NEURO: Alert & Oriented x4 to person, place, time, situation. Moves all ext x4 Procedures none Medications and IVs Current Medications Aspirin (Aspirin Chew) 162 mg ONCE ONCE PO Last administered on 09/19/16 17: 49; Start 09/19/16 at 17:45; Stop 09/19/16 at 17:46; Status DC Sodium Chloride 2 ml 2 ml UNSCH PRN IVF FLUSH AFTER USING IV ACCESS Last administered on 09/19/16 17:50; Start 09/19/16 at 17:45; Stop 09/20/16 at 04:55 ; Status DC Sodium Chloride (NS 500 ml Inj) 500 ml @ 500 mls/hr ONCE ONCE IV Last administered on 09/19/16 17:50; Start 09/19/16 at 17:45; Stop 09/19/16 at 18:44 ; Status DC Sodium Chloride (NS Flush) 2 ml UNSCH PRN IV FLUSH FLUSH AFTER USING IV ACCESS ; Start 09/19/16 at 19:30 Sodium Chloride (NS Flush) 2 ml BID IV FLUSH Last administered on 09/21/16 20: 39; Start 09/19/16 at 21:00 Acetaminophen (Tylenol) 500 mg Q4H PRN PO HEADACHE; Start 09/19/16 at 19:30 Ondansetron HCl (Zofran Inj) 4 mg Q6H PRN IV NAUSEA Last administered on 06:49; Start 09/19/16 at 19:30 Nitroglycerin (Nitrostat Sl) 0.4 mg Q5M PRN SL CHEST PAIN; Start 09/19/16 at 19 :30 Dextrose (D50w (Vial) Inj) 50 ml UNSCH PRN IV HYPOGLYCEMIA-SEE COMMENTS; Start 09/19/16 at 19:30; Stop 09/20/16 at 11:26; Status DC Glucagon (Glucagon Inj) 1 mg UNSCH PRN OTHER HYPOGLYCEMIA-SEE COMMENTS; Start 09/19/16 at 19:30 Insulin Human Regular 1 1 ACHS SLIDING SCALE SQ Last administered on 20:38; Start 09/19/16 at 21:00 Sodium Chloride (NS 500 ml Inj) 500 ml @ 500 mls/hr BOLUS ONCE IV Last administered on 09/19/16 20:16; Start 09/19/16 at 19:45; Stop 09/19/16 at 20:44 ; Status DC Insulin Human Regular (NovoLIN R INJ) 10 units ONCE ONCE SQ Last administered on 09/19/16 20:18; Start 09/19/16 at 19:45; Stop 09/19/16 at 19:46; Status DC Morphine Sulfate (Morphine Inj) 4 mg ONCE ONCE IV PUSH ; Start 09/19/16 at 21: 15; Stop 09/19/16 at 23:22; Status DC Ondansetron HCl (Zofran Inj) 4 mg ONCE ONCE IV PUSH Last administered on 22:45; Start 09/19/16 at 21:15; Stop 09/19/16 at 21:16; Status DC Insulin Detemir (Levemir Inj) 75 units ONCE STAT SQ Last administered on 22:45; Start 09/19/16 at 21:44; Stop 09/19/16 at 21:45; Status DC Morphine Sulfate 4 mg 4 mg ONCE ONCE IV PUSH Last administered on 09/20/16 03 :27; Start 09/19/16 at 23:30; Stop 09/19/16 at 23:31; Status DC Sodium Chloride (NS 250 ml Inj) 250 ml @ 100 mls/hr ONCE ONCE IV Last administered on 09/20/16 04:57; Start 09/20/16 at 05:00; Stop 09/20/16 at 07:29 ; Status DC Aspirin (Ecotrin Ec) 81 mg DAILY PO Last administered on 09/21/16 09:00; Start 09/20/16 at 09:45 Atorvastatin Calcium (Lipitor) 80 mg DAILY PO Last administered on 09/21/16 08 :45; Start 09/20/16 at 09:45 Clopidogrel Bisulfate (Plavix) 75 mg DAILY PO Last administered on 09/21/16 08 :45; Start 09/20/16 at 09:45 Insulin Detemir (Levemir Inj) 75 units BID SQ Last administered on 09/21/16 20 :37; Start 09/20/16 at 21:00 Pantoprazole Sodium (Protonix) 20 mg DAILY PO Last administered on 09/21/16 08 :45; Start 09/20/16 at 09:45 Albuterol/ Ipratropium 1 ampule 1 ampule Q4HR NEB PRN NEB SOB/wheezing; Start 09/20/16 at 09:45 Sodium Chloride (NS 500 ml Inj) 500 ml @ 500 mls/hr BOLUS ONCE IV Last administered on 09/20/16 10:23; Start 09/20/16 at 09:45; Stop 09/20/16 at 10:44 ; Status DC Magnesium Oxide 800 mg 800 mg UNSCH PRN PO For Magnesium 1.2 - 1.6 mg/dL; Start 09/20/16 at 11:15 Magnesium Sulfate 4 gm/Sodium Chloride 100 ml @ 50 mls/hr UNSCH PRN IV For Magnesium 0.9 - 1.1 mg/dL; Start 09/20/16 at 11:15 Magnesium Sulfate 2 gm/Sodium Chloride 100 ml @ 50 mls/hr UNSCH PRN IV For Magnesium 1.2 - 1.6 mg/dL; Start 09/20/16 at 11:15 Potassium Chloride 100 ml @ 50 mls/hr Q2H PRN IV For Potassium 2.8 - 3.2 mEq/L ; Start 09/20/16 at 11:15 Potassium Chloride 100 ml @ 50 mls/hr Q2H PRN IV For Potassium 3.3 - 3.5 mEq/L ; Start 09/20/16 at 11:15 Potassium Chloride 100 ml @ 50 mls/hr Q2H PRN IV For Potassium 2.8 - 3.2 mEq/L ; Start 09/20/16 at 11:15 Potassium Chloride (KCl 40 Meq Premix Inj) 100 ml @ 25 mls/hr UNSCH PRN IV For Potassium 3.3 - 3.5 mEq/L; Start 09/20/16 at 11:15 Potassium Phosphate (K-Phos) 2,000 mg Q4H PRN PO For Phosphorus < 2.5 mg/dL; Start 09/20/16 at 11:15 Potassium Phosphate 2000 mg 2,000 mg UNSCH PRN PO/TUBE SEE LABEL COMMENTS; Start 09/20/16 at 11:15 Potassium Phosphate 30 mmol/ Sodium Chloride 260 ml @ 42 mls/hr UNSCH PRN IV SEE LABEL COMMENTS; Start 09/20/16 at 11:15 Sodium Phosphate/ Sodium Chloride (Sodium Phosphate Inj/NS 250 ml Inj) 250 ml @ 42 mls/hr UNSCH PRN IV For Phosphorus < 2.5 mg/dL; Start 09/20/16 at 11:15 Dextrose (D50w (Vial) Inj) 25 ml UNSCH PRN IV PUSH HYPOGLYCEMIA-SEE COMMENTS; Start 09/20/16 at 11:15 Insulin Human Regular (NovoLIN R SUPPLEMENTAL SCALE) 1 ACHS AND 3AM SQ Last administered on 09/22/16 06:30; Start 09/20/16 at 16:00 Morphine Sulfate (Morphine Inj) 2 mg NOW ONCE IV Last administered on 15:16; Start 09/20/16 at 15:00; Stop 09/20/16 at 15:01; Status DC Morphine Sulfate (Morphine Inj) 2 mg Q4H PRN IV PUSH PAIN 1-10 Last administered on 09/22/16 06:47; Start 09/20/16 at 17:45 Albumin Human (Albumin 5% Inj) 25 gm ONCE ONCE IV Last administered on 05:24; Start 09/21/16 at 04:45; Stop 09/21/16 at 04:46; Status DC Diphenhydramine HCl (Benadryl) 25 mg Q8H PRN PO ITCHING Last administered on 01:55; Start 09/21/16 at 12:00 A/P Assessment and Plan A/P Heart Failure ; chronic systolic/diastolic; compensated -- echo with EF 35% and diastolic dysfunction --will gradually reintroduce BB, JAROD-I and diuretic if BP remains stable. Hypotension- has much improved -- blood cultures negative so far. -- hold anti-hypertensives Elevated Cr, apparent Acute kidney injury-improved. -- nephrology consult appreciated --continue to monitor the renal function -- very judicious fluids. encourage po intake. --avoid nephrotoxins Atypical Chest pain with history of CAD- s/p stent placement -- appears very musculoskeletal in nature -- high suspicion this could be costochondritis -- unfortunately, with her serum Cr, NSAIDs are contra-indicated. -- continue prn morphine -- trop negative x 3. --cardiology consult appreciated. --will continue aspirin, plavix and statin Hyponatremia -- trend sodiums -- likely hypervolemic hyponatremia secondary to heart failure with renal dysfunction diabetes mellitus resumed her long-acting insulin accu-check with SSI DVT prophylaxis with SCD's will transfer to telemetry today. d/w the RN. Lizeth Mccray MD Sep 22, 2016 08:23
[2016-09-22] MEDS: SODIUM CHLORIDE 0.9% FLUSH 10 ML FLUSH IV FLUSH SCH ×2 (09:00→20:38)
--- NOTE | 2016-09-22 16:23 | HHI.NPPN ---
Subjective History of Present Illness cardiogenic shock better post fluids doing well Objective Data Data 09/21/16 09/22/16 19:00 07:00 Intake Total 380 ml 1050 ml Output Total 850 ml 1350 ml Balance -470 ml -300 ml Intake Oral 380 ml 1050 ml IV Total 0 ml Output Urine Total 850 ml 1350 ml # Bowel Movements 1 0 Vital Signs Date Time Temp Pulse Resp B/P Pulse Ox O2 Delivery O2 Flow Rate FiO2 09/22/16 12:51 87 09/22/16 12:45 98.3 89 18 121/57 97 09/22/16 12:00 98.5 90 16 146/65 94 09/22/16 12:00 90 09/22/16 10:00 82 09/22/16 08:00 84 09/22/16 08:00 98.4 84 13 141/69 98 09/22/16 07:28 98 Nasal Cannula 2.00 09/22/16 06:00 84 09/22/16 04:00 92 09/22/16 04:00 98.7 87 15 106/57 91 09/22/16 02:00 89 09/22/16 00:00 98.3 79 14 89/47 99 09/22/16 00:00 99 09/21/16 22:00 81 09/21/16 20:00 98.4 84 13 105/58 96 Manual Cuff/Auscultation 09/21/16 20:00 82 09/21/16 18:00 79 -: 09/21/16 0445 09/21/16 0935 Physical Exam General Appearance: Well Developed, Well Nourished Pulmonary Resp Exam: Clear Bilaterally Cardiology CV Exam: Regular Gastrointestinal/Abdomen GI Exam: Soft, Non-Tender Integumentary Skin Exam: Clear Extremeties Extremities Exam: No Edema Assessment/Plan Problem List: (1) Acute kidney injury Plan: Patient has been stable BP remains stable Avoid nephrotoxins Observation at this point and follow BMP (2) Type 2 diabetes mellitus Plan: Continue to monitor (3) Chest pain Plan: Continue to monitor Ping Negro MD Sep 22, 2016 16:23
[2016-09-23] VITALS (8 sets, daily range): BP systolic 95–143; BP diastolic 51–73; PULSE 84–98; RESP 18–20; TEMP 97.2–98.6; O2SAT 93–99
[2016-09-23] MEDS: INSULIN NovoLIN REGULAR SUPPLEMENTAL SCALE SQ SCH ×9 (03:00→21:26)
[2016-09-23] MEDS: MORPHINE SULFATE 8 MG/ML INJ IV PUSH PRN (04:15)
[2016-09-23 08:15] LABS: HEMATOCRIT 37.1 % (35.0-46.0); MEAN CELL VOLUME 81.9 FL (80.0-100.0); MEAN CORPUSCULAR HEMOGLOBIN 26.8 PG (27.0-34.0); MEAN CORPUSCULAR HGB CONC 32.7 % (32.0-36.0); PLATELET COUNT 219 TH/MM3 (150-450); RED BLOOD COUNT 4.53 MIL/MM3 (4.00-5.30); RED CELL DISTRIBUTION WIDTH 13.1 % (11.6-17.2); REVIEW FLAG FINAL; WHITE BLOOD COUNT 9.7 TH/MM3 (4.0-11.0)
[2016-09-23 08:44] LABS: BICARBONATE 27.6 MEQ/L (21.0-32.0); POTASSIUM 3.8 MEQ/L (3.5-5.1)
[2016-09-23] MEDS: ASPIRIN EC 81 MG TABEC PO SCH (09:15)
[2016-09-23] MEDS: PANTOPRAZOLE SOD 20 MG DELAYED RELEASE TAB PO SCH (09:15)
[2016-09-23] MEDS: ATORVASTATIN 80 MG TAB PO SCH (09:15)
[2016-09-23] MEDS: INSULIN DETEMIR 100 UNITS/ML VIAL SQ SCH ×2 (09:16→21:26)
[2016-09-23] MEDS: CLOPIDOGREL 75 MG TAB PO SCH (09:16)
[2016-09-23] MEDS: SODIUM CHLORIDE 0.9% FLUSH 10 ML FLUSH IV FLUSH SCH ×2 (09:16→21:16)
--- NOTE | 2016-09-23 09:20 | HHI.PR ---
Subjective Remarks No acute events overnight. Patient hypotensive this morning at 95/51. She continues to complain of sternal chest pain that is worse with palpation. Denies pain on deep inspiration. States the pain is constant and nothing makes it worse/better. Tolerating diet. Additionally, the patient complains of a rash in her left groin. Objective Vitals Vital Signs Date Time Temp Pulse Resp B/P Pulse Ox O2 Delivery O2 Flow Rate FiO2 09/23/16 04:28 16 09/23/16 04:00 97.6 90 20 95/51 93 09/23/16 00:00 98.6 96 20 125/67 96 09/22/16 20:41 70 09/22/16 20:00 98.5 97 20 122/53 94 09/22/16 16:48 91 09/22/16 16:00 99.2 93 22 114/58 97 09/22/16 12:51 87 09/22/16 12:45 98.3 89 18 121/57 97 09/22/16 12:00 98.5 90 16 146/65 94 09/22/16 12:00 90 09/22/16 10:00 82 I/O 09/22/16 09/22/16 09/22/16 09/23/16 09/23/16 09/23/16 07:00 15:00 23:00 07:00 15:00 23:00 Intake Total 700 ml 600 ml 220 ml 320 ml Output Total 600 ml 400 ml Balance 100 ml 600 ml 220 ml -80 ml Intake Oral 700 ml 600 ml 220 ml 320 ml IV Total 0 ml Output Urine Total 600 ml 400 ml # Voids 2 4 # Bowel Movements 0 1 0 0 Result Diagram: 09/23/16 0619 09/23/16618 Objective Remarks GENERAL: This is a well-nourished, well-developed patient, in no apparent distress. CARDIOVASCULAR: Regular rate and regular rhythm without murmurs, gallops, or rubs. RESPIRATORY: Clear to auscultation. Breath sounds equal bilaterally. No wheezes , rales, or rhonchi. chest is tender on palpation. GASTROINTESTINAL: Abdomen soft, non-tender, nondistended. Normal, active bowel sounds MUSCULOSKELETAL: Extremities without clubbing, cyanosis, or edema. NEURO: Alert & Oriented x4 to person, place, time, situation. Moves all ext x4 Procedures none A/P Assessment and Plan Heart Failure ; chronic systolic/diastolic; compensated -- echo with EF 35% and diastolic dysfunction --will gradually reintroduce BB, JAROD-I and diuretic once blood pressure stabilizes. Hypotension- has much improved -- blood cultures negative so far. -- hold anti-hypertensives -- Suspect hypotension is related to morphine, will discontinue at this time Elevated Cr, apparent Acute kidney-resolved -- nephrology consult appreciated --continue to monitor the renal function -- very judicious fluids. encourage po intake. --avoid nephrotoxins Atypical Chest pain with history of CAD- s/p stent placement -- appears very musculoskeletal in nature -- high suspicion this could be costochondritis -- Patient appears comfortable, will discontinue morphine as this likely is related to her hypotension -- trop negative x 3. --cardiology consult appreciated. Recommend resumption of beta waldemar, JAROD inhibitor and diuretics once hypotension improves --will continue aspirin, plavix and statin Hyponatremia-resolved -- trend sodiums -- likely hypervolemic hyponatremia secondary to heart failure with renal dysfunction diabetes mellitus resumed her long-acting insulin accu-check with SSI Discharge Planning Once blood pressure normalizes and patient started on by mouth medications, she can be discharged to home Lisa Mayberry MD R3 Sep 23, 2016 09:20
[2016-09-23] MEDS: SPIRONOLACTONE 25 MG TAB PO SCH (13:11)
[2016-09-23] MEDS: GABAPENTIN 300 MG CAP PO SCH ×2 (13:11→18:17)
--- NOTE | 2016-09-23 16:10 | HHI.NPPN ---
Subjective History of Present Illness cardiogenic shock better post fluids doing well Objective Data Data 09/22/16 09/23/16 19:00 07:00 Intake Total 600 ml 540 ml Output Total 400 ml Balance 600 ml 140 ml Intake Oral 600 ml 540 ml Output Urine Total 400 ml # Voids 4 2 # Bowel Movements 1 0 Vital Signs Date Time Temp Pulse Resp B/P Pulse Ox O2 Delivery O2 Flow Rate FiO2 09/23/16 12:00 91 09/23/16 12:00 97.6 98 18 126/69 99 09/23/16 08:05 84 09/23/16 08:00 97.2 91 20 143/73 96 09/23/16 04:28 16 09/23/16 04:00 97.6 90 20 95/51 93 09/23/16 00:00 98.6 96 20 125/67 96 09/22/16 20:41 70 09/22/16 20:00 98.5 97 20 122/53 94 09/22/16 16:48 91 -: 09/23/16 0619 09/23/16 0619 Physical Exam General Appearance: Well Developed, Well Nourished Pulmonary Resp Exam: Clear Bilaterally Cardiology CV Exam: Regular Gastrointestinal/Abdomen GI Exam: Soft, Non-Tender Integumentary Skin Exam: Clear Extremeties Extremities Exam: No Edema Assessment/Plan Problem List: (1) Acute kidney injury Plan: resolved with hydration nephrology to sign off (2) Type 2 diabetes mellitus Plan: Continue to monitor (3) Chest pain Plan: Continue to monitor Ping Negro MD Sep 23, 2016 16:10
[2016-09-23] MEDS: diphenhydrAMINE HCL 25 MG CAP PO PRN (21:23)
[2016-09-23] MEDS: NYSTATIN 100,000 U/GM PWD 15 GM BTL TOPICAL SCH (21:23)
[2016-09-24] VITALS (7 sets, daily range): BP systolic 115–133; BP diastolic 61–82; PULSE 80–92; RESP 16–18; TEMP 97.1–98.1; O2SAT 94–97
[2016-09-24] MEDS: INSULIN NovoLIN REGULAR SUPPLEMENTAL SCALE SQ SCH ×4 (02:57→11:00)
[2016-09-24] MEDS: ASPIRIN EC 81 MG TABEC PO SCH (08:28)
[2016-09-24] MEDS: ATORVASTATIN 80 MG TAB PO SCH (08:28)
[2016-09-24] MEDS: GABAPENTIN 300 MG CAP PO SCH ×2 (08:28→12:13)
[2016-09-24] MEDS: PANTOPRAZOLE SOD 20 MG DELAYED RELEASE TAB PO SCH (08:28)
[2016-09-24] MEDS: CLOPIDOGREL 75 MG TAB PO SCH (08:28)
[2016-09-24] MEDS: NYSTATIN 100,000 U/GM PWD 15 GM BTL TOPICAL SCH (08:29)
[2016-09-24] MEDS: INSULIN DETEMIR 100 UNITS/ML VIAL SQ SCH (08:31)
[2016-09-24] MEDS: SPIRONOLACTONE 25 MG TAB PO SCH (08:31)
[2016-09-24] MEDS: diphenhydrAMINE HCL 25 MG CAP PO PRN (10:26)
--- NOTE | 2016-09-24 11:44 | HHI.PR ---
Subjective Remarks Follow-up respiratory failure/acute on chronic systolic/diastolic CHF 09/24/16-patient seen and examined, reports improvement of shortness of breath complain of some chest pain otherwise stable Objective Vitals Vital Signs Date Time Temp Pulse Resp B/P Pulse Ox O2 Delivery O2 Flow Rate FiO2 09/24/16 08:54 97.3 90 16 133/82 97 09/24/16 04:00 85 09/24/16 03:29 98.1 85 18 115/61 96 09/24/16 00:00 92 09/24/16 00:00 97.8 87 18 130/70 96 09/23/16 20:21 98.3 93 18 108/69 96 09/23/16 20:00 92 09/23/16 17:00 97.5 96 20 128/71 97 09/23/16 12:00 91 09/23/16 12:00 97.6 98 18 126/69 99 I/O 09/23/16 09/23/16 09/23/16 09/24/16 09/24/16 09/24/16 06:59 14:59 22:59 06:59 14:59 22:59 Intake Total 320 ml 1440 ml Output Total 400 ml Balance -80 ml 1440 ml Intake Oral 320 ml 1440 ml Output Urine Total 400 ml # Voids 8 # Bowel Movements 0 Result Diagram: 09/23/16 0609/23/1619 Imaging Last Impressions Lung Scan-V Nuclear Medicine 09/20/16 0000 Signed Impressions: Service Date/Time: September 10:51 - CONCLUSION: No scintigraphic evidence to suggest acute pulmonary emboli. Cardiomegaly. Unruly Bronson Jr., MD Chest X-Ray 09/20/16 0000 Signed Impressions: Service Date/Time: September 10:04 - CONCLUSION: Cardiomegaly with pulmonary vascular engorgement. No pulmonary edema observed. Unruly Bronson Jr., MD Chest CT 09/20/16 0000 Signed Impressions: Service Date/Time: Wednesday, September 21, 2016 02:33 - CONCLUSION: 1. Atelectatic changes are noted as above. 2. Coronary artery calcification. 3. Mild infiltrates in the upper lobes. Shai Patel MD Objective Remarks GENERAL: NAD SKIN: Warm and dry. HEAD: Normocephalic. EYES: No scleral icterus. No injection or drainage. NECK: Supple, trachea midline. No JVD or lymphadenopathy. CARDIOVASCULAR: Regular rate and rhythm without murmurs, gallops, or rubs. RESPIRATORY: Breath sounds equal bilaterally. No accessory muscle use. GASTROINTESTINAL: Abdomen soft, non-tender, nondistended. MUSCULOSKELETAL: No cyanosis, or edema. BACK: Nontender without obvious deformity. No CVA tenderness. Procedures none A/P Problem List: (1) DM (diabetes mellitus) ICD Code: E11.9 Status: Chronic (2) Acute on chronic systolic and diastolic heart failure, NYHA class 2 ICD Code: I50.43 Status: Acute (3) Acute kidney injury ICD Code: N17.9 Status: Acute (4) Chest pain ICD Code: R07.9 Status: Acute Assessment and Plan 61 year-old female with Heart Failure ; chronic systolic/diastolic; compensated -- echo with EF 35% and diastolic dysfunction --w will resume BB and diuretic on discharge however hold on JAROD inhibitor Hypotension- -- Resolved; will resume outpatient medications Elevated Cr, apparent Acute kidney-resolved --Resolved -- nephrology consult appreciated --avoid nephrotoxins Atypical Chest pain with history of CAD- s/p stent placement -- appears very musculoskeletal in nature -- Patient appears comfortable, will discontinue morphine as this likely is related to her hypotension -- trop negative x 3. --cardiology consult appreciated. Resume beta waldemar and diuretics. Eventually patient will need to resume JAROD inhibitor --continue aspirin, Plavix and statin Hyponatremia-resolved diabetes mellitus Continue long-acting insulin accu-check with Jc Vu MD Sep 24, 2016 11:44
--- NOTE | 2016-09-24 11:46 | HHI.DS ---
Discharge Summary Admission Date Sep 20, 2016 at 13:31 Discharge Date: Sep 24, 2016 Admitting Diagnosis chest pain (1) DM (diabetes mellitus) ICD Code: E11.9 (2) Acute on chronic systolic and diastolic heart failure, NYHA class 2 ICD Code: I50.43 (3) Acute kidney injury ICD Code: N17.9 (4) Chest pain ICD Code: R07.9 Procedures none Brief History - From Admission 61-year-old woman with a history of prior heart failure with reduced EF and multiple prior admissions for chest pain. She presented overnight last night with atypical chest pain. She was evaluated by the survey supervisor and since the chest pain center for rule out ACS. Throughout the night, she was progressively hypotensive. She complained of significant chest pain. VQ scan was normal. Her creatinine is mildly elevated. Medical care medicine was consulted to evaluate and manage her hypertension. When I evaluated patient, she complained of severe chest pain substernally. She had exquisite point tenderness at the sternum itself. When I asked her to point with one finger she points directly lateral to either side of the sternum near the costochondral junctions. She denies any change to her baseline dyspnea on exertion. She denies any orthopnea. There is no aggravating or alleviating factors to her chest pain. She has to eat. She states she is hungry. Laboratory data is significant for a white count of 14 which is now downtrending to 12, troponins are negative 3, BNP which is essentially negative and downtrending, creatinine 1.97 which is rising to 2.1. Her baseline appears to be 0.6. Patient denies nausea, vomiting, abdominal pain. Denies fever, chills, cough, sputum production. Denies dysuria, frequency of urination. Denies really any other complaints at all other than this new very localized substernal chest pain. She does rate the pain 8 out of 10. She describes it as a crushing substernal pain CBC/BMP: 09/23/16 0619 09/23/16 0619 Significant Findings Laboratory Tests Test 09/23/16 06:19 Mean Corpuscular Hemoglobin 26.8 PG (27.0-34.0) Blood Urea Nitrogen 27 MG/DL (7-18) Estimat Glomerular Filtration 68 ML/MIN (>89) Rate PE at Discharge GENERAL: NAD SKIN: Warm and dry. HEAD: Normocephalic. EYES: No scleral icterus. No injection or drainage. NECK: Supple, trachea midline. No JVD or lymphadenopathy. CARDIOVASCULAR: Regular rate and rhythm without murmurs, gallops, or rubs. RESPIRATORY: Breath sounds equal bilaterally. No accessory muscle use. GASTROINTESTINAL: Abdomen soft, non-tender, nondistended. MUSCULOSKELETAL: No cyanosis, or edema. BACK: Nontender without obvious deformity. No CVA tenderness. Hospital Course Heart Failure ; chronic systolic/diastolic; compensated -- echo with EF 35% and diastolic dysfunction --w will resume BB and diuretic on discharge however hold on JAROD inhibitor Hypotension- -- Resolved; will resume outpatient medications Elevated Cr, apparent Acute kidney-resolved --Resolved -- nephrology consult appreciated --avoid nephrotoxins Atypical Chest pain with history of CAD- s/p stent placement -- appears very musculoskeletal in nature -- Patient appears comfortable, will discontinue morphine as this likely is related to her hypotension -- trop negative x 3. --cardiology consult appreciated. Resume beta waldemar and diuretics. Eventually patient will need to resume JAROD inhibitor --continue aspirin, Plavix and statin Hyponatremia-resolved diabetes mellitus Continue long-acting insulin accu-check with SSI Pt Condition on Discharge: Stable Discharge Disposition: Discharge Home Discharge Time: <= 30 minutes Discharge Instructions DIET: Follow Instructions for: Diabetic Diet Activities you can perform: Regular-No Restrictions Follow up Referrals: PCP Follow-up - 1 Week Continued Medications: Albuterol 6.7 GM Inh (Proventil Hfa 6.7 GM Inh) 90 Mcg/Act Aer 2 PUFF INH Q4-6H PRN SHORTNESS OF BREATH #1 Ref [address] (Aspirin DR) 81 Mg Tabdr 81 MG PO DAILY Ref 0 TAB Atorvastatin (Atorvastatin) 80 Mg Tab 80 MG PO DAILY Cholesterol Management #30 Ref 0 TAB Bumetanide (Bumetanide) 1 Mg Tab 1 MG PO BID #60 Ref 0 TAB Carvedilol (Coreg) 3.125 Mg Tab 3.125 MG PO BID heart #60 Ref 0 TAB Clopidogrel (Plavix) 75 Mg Tab 75 MG PO DAILY Blood Clot Prevention #30 Ref 0 TAB Gabapentin (Gabapentin) 300 Mg Cap 300 MG PO TID Pain Management #90 Ref 0 CAP Insulin Aspart Inj (Novolog Inj) 1,000 Unit/10 Ml Vial 48 UNITS SQ TIDAC Blood Sugar Management #10 Ref 0 ML Insulin Glargine Inj (Lantus Inj) 1,000 Unit/10 Ml Vial 75 UNITS SQ BID Blood Sugar Management Ref 0 VIAL Ipratropium HFA 12.9 GM Inh (Atrovent HFA 12.9 GM Inh) 17 Mcg/Act Aer 2 PUFF INH TID PRN SHORTNESS OF BREATH #1 Ref 0 INHALER Nitroglycerin SL (Nitroglycerin SL) 0.4 Mg Subl 0.4 MG SL DIRECTED ONE TABLET UNDER THE TONGUE NEEDED FOR CHEST PAIN, MAY REPEAT EVERY FIVE MINUTES FOR A TOTAL OF 3 DOSES OR CALL 911 IF NO RELIEF PRN CHEST PAIN #100 Ref 0 TAB.SL Omeprazole (Omeprazole) 20 Mg Tab 20 MG PO DAILY #30 Ref 0 TAB Spironolactone (Spironolactone) 25 Mg Tab 25 MG PO BIDPC heart #60 Ref 0 TAB Discontinued Medications: Prednisone (Prednisone) 20 Mg Tab 40 MG PO DAILY #3 TAB Jc Brito MD Sep 24, 2016 11:46
== END 2016-09-24 15:33 | disposition home or self-care (01) | DRG 206 ==
LOC: NEPC 17:23 → NEDA 19:30 → NEPFCDU 23:56 → HIMN 09-20 12:40 → OBSVTOIN 09-20 13:31 → HOCB 09-22 12:26
PROVIDERS: ADMIT Hospitalist; ATTEND Hospitalist
DX: M94.0 Chondrocostal junction syndrome [Tietze] (principal); N17.9 Acute kidney failure, unspecified; I42.9 Cardiomyopathy, unspecified; I13.0 Hypertensive heart and chronic kidney disease with heart failure and stage 1 through stage 4 chronic kidney disease, or unspecified chronic kidney disease; E11.22 Type 2 diabetes mellitus with diabetic chronic kidney disease; E66.01 Morbid (severe) obesity due to excess calories; I50.42 Chronic combined systolic (congestive) and diastolic (congestive) heart failure; E87.1 Hypo-osmolality and hyponatremia; E11.65 Type 2 diabetes mellitus with hyperglycemia; I25.2 Old myocardial infarction; F32.9 Major depressive disorder, single episode, unspecified; I25.10 Atherosclerotic heart disease of native coronary artery without angina pectoris; I44.0 Atrioventricular block, first degree; M19.90 Unspecified osteoarthritis, unspecified site; E78.00 Pure hypercholesterolemia, unspecified; J44.9 Chronic obstructive pulmonary disease, unspecified; K21.9 Gastro-esophageal reflux disease without esophagitis; G43.909 Migraine, unspecified, not intractable, without status migrainosus; F40.240 Claustrophobia; E78.5 Hyperlipidemia, unspecified; G62.9 Polyneuropathy, unspecified; I45.10 Unspecified right bundle-branch block; N18.9 Chronic kidney disease, unspecified; I73.9 Peripheral vascular disease, unspecified; G47.33 Obstructive sleep apnea (adult) (pediatric); Z95.5 Presence of coronary angioplasty implant and graft; Z86.14 Personal history of Methicillin resistant Staphylococcus aureus infection; Z87.891 Personal history of nicotine dependence
CPT/HCPCS: 36600; 71010; 71020; 71250; 76937; 78582; 80048; 80053; 82533; 82550; 82552; 82805; 82948; 83605; 83690; 83735; 83880; 83930; 84484; 85025; 85027; 85379; 85610; 85730; 87040; 87641; 93005; 93308; 94150; 94640; 94667; 94668; 96360; A9540; A9567; G0378; J1815; J2270; J2405; J7040; J7050; P9045

== ENCOUNTER 2016-10-27 14:00 | Inpatient (IN) | payer MEDICAID ==
[~2016-10-27] VITALS: Ht 157.5 cm; Wt 121.6 kg
[2016-10-27] VITALS (22 sets, daily range): BP systolic 58–215; BP diastolic 33–111; PULSE 24–88; RESP 15–28; TEMP 97.6–97.8; O2SAT 68–100
[~2016-10-27 14:00] MED LIST changes: -BACT800T5 PO; +BUME1TAB PO; -BUME1TAB26 PO; +EPINEPHrine HCL (1:10,000) 1 MG/10 ML SYRINGE IV ONE; -HYDR-3583 PO; +LANTUS2P SQ; -LEVEMIR SQ; +NOVOLOGP2 SQ; -NYST15T TOPICAL; -ONDA4TAB7 SL; -PRED20 PO; -SENN1TAB PO; -TRAM50TA PO
[2016-10-27] MEDS ORDERED: LORazepam 2 MG/ML VIAL ONE (14:04)
[2016-10-27] MEDS ORDERED: ATROPINE SULFATE 1 MG/ML VIAL ONE (14:04)
[2016-10-27] MEDS ORDERED: ONDANSETRON HCL 4 MG/2 ML VIAL ONE (14:23)
[2016-10-27] MEDS ORDERED: ETOMIDATE 20 MG/10 ML VIAL ONE ×2 (14:29→14:31)
[2016-10-27] MEDS ORDERED: PROPOFOL 1000 MG/100 ML INJ 100 ML ONE (14:49)
[2016-10-27 14:50] LABS: MEAN CORPUSCULAR HGB CONC 29.5 % (32.0-36.0)
[2016-10-27] MEDS ORDERED: ROCURONIUM INJ 50 MG/5 ML VIAL IV ONE (15:00)
[2016-10-27] MEDS ORDERED: ONDANSETRON HCL 4 MG/2 ML VIAL IV PUSH ONE (15:00)
[2016-10-27] MEDS ORDERED: ETOMIDATE 20 MG/10 ML VIAL IV PUSH ONE (15:00)
[2016-10-27] MEDS ORDERED: NOREPINEPHRINE 4 MG/4 ML AMP ONE (15:11)
[2016-10-27] MEDS ORDERED: TERBUTALINE INJ 1 MG/ML AMP SQ PRN (15:15)
[2016-10-27] MEDS: NOREPINEPHRINE-DEXTROSE DRIP 250 ML IV SCH (15:31)
[2016-10-27] MEDS: MIDAZOLAM 100 MG/100 ML INJ 100 ML IV SCH (16:01)
--- NOTE | 2016-10-27 16:18 | RADRPT ---
EXAM DATE/TIME: 10/27/2016 15:58 [facility] COMPARISON: CHEST PA & LAT, September 20, 2016, 10:04. INDICATIONS : Post intubation. MEDICAL HISTORY : Cardiovascular disease. Hypertension. SURGICAL HISTORY : Stents. ENCOUNTER: Initial ACUITY: 1 day PAIN SCORE: Non-responsive. LOCATION: Bilateral chest FINDINGS: There is slight cardiomegaly and perivascular pulmonary edema. Focal consolidation is not seen. Right subclavian line is present with tip overlapping the expected region of the SVC. NG tube is present w ith tip in the stomach. ET tube is present with tip overlapping approximately 1-2 cm above the silverio . CONCLUSION: Slight CHF. K. Heladio Harrison MD on October 27, 2016 at 16:15 Board Certified Radiologist. This report was verified electronically.
--- NOTE | 2016-10-27 16:28 | MB ---
cc: LACY BARBOSA M.D., MARIA I. M.D. DATE OF CONSULTATION October 27, 2016 This is a patient of Dr. Constanza Acsota. REASON FOR CONSULTATION Third degree AV block and hypotension. HISTORY Ms. Clayton is a 61-year-old female with history of coronary artery disease, ischemic cardiomyopathy, diabetes mellitus type 2 and peripheral arterial disease who was found to be very weak at home and the ambulance was called by family or friends. When [facility] arrived and hooked her up to the monitor they found her to be in third degree AV block with severe bradycardia and hypotension. She was able to answer some questioning although very lethargic and she was taken to the emergency room. A temporary transcutaneous pacemaker was placed with intermittent capture. The patient was having significant discomfort from the transcutaneous pacemaker. I was called to evaluate her and the device was intermittently capturing at an acceptable level for her pain. Her blood pressure was low but she did respond to a couple of doses of epinephrine 0.5 milligrams, was given 1 milligram of atropine. These responses were only transient. The patient was having some respiratory distress and very lethargic and was electively intubated here in the emergency room. I had a chance to briefly speak to her and she did recall seeing me once before here in the emergency room. But she was unable to answer any questioning after that. I did explain to her the need for an emergent temporary transvenous pacemaker before she was unresponsive once again. HOME MEDICATIONS: Unknown PAST MEDICAL HISTORY Her past medical history as mentioned, coronary artery disease. Multiple myocardial infarctions, diabetes mellitus type 2, hypertension, hyperlipidemia, congestive heart failure, morbid obesity, chronic kidney disease, peripheral arterial disease with claudication. All the history is obtained from previous records and unobtainable from the patient at this time. PAST SURGICAL HISTORY Includes a cholecystectomy, tonsillectomy, LASIK surgery. Multiple peripheral interventions, including atherectomy and balloon LINOLEUM TILE LAYER of the left SFA in February 2016 done at [facility]. She has had cardiac catheterization. ALLERGIES CODEINE, PENICILLIN, HYDROMORPHONE. FAMILY HISTORY Not contributory SOCIAL HISTORY Not contributory. Smoker in the past. REVIEW OF SYSTEMS Unobtainable. PHYSICAL EXAMINATION GENERAL: Reveals a morbidly obese female in moderate respiratory distress, lying in bed in the emergency room. VITAL SIGNS: Blood pressure 68/42 mmHg, heart rate is electronically paced at 60 beats per minute, intermittent capture. The pulse initially was 24 beats per minute. Oxygen saturation is 100% on a partial non-rebreather mask at 15 liters. HEENT: Head is normocephalic and atraumatic. Pupils equal, round and reactive to light. Sclerae anicteric. Extraocular movements appear intact. NECK: The neck is supple. There is thick and jugular venous distension cannot be ascertained. Carotid upstrokes are normal, weak but normal. LUNGS: Lungs are clear to auscultation anteriorly. HEART: PMI is not appreciated. S1-S2 normal. I hear no murmurs, gallops or rubs. ABDOMEN: Obese. Bowel sounds present, soft, nontender. EXTREMITIES: No cyanosis or clubbing. There is +1 pretibial edema bilaterally. Perfusion is adequate and the upper and lower extremities are perfused and warm. CARDIOLOGY STUDIES EKG on arrival to the emergency room showed a sinus bradycardia with third degree AV block, ventricular escape rate 24 beats per minute, left bundle branch block pattern. IMAGING STUDIES No chest x-ray has been completed yet. Echocardiogram: performed on previous hospitalization 09/20/2016 LVEF 30-35%. No significant valvular disease. LABORATORY DATA No labs are back yet. IMPRESSION 1. Third degree AV block with hemodynamic compromise requiring electronic pacing. 2. History of ASHD with ischemic cardiomyopathy. LVEF 30-35% 3. Diabetes mellitus type 2. 4. Chronic left bundle branch block. 5. Peripheral arterial disease 6. Chronic kidney disease. RECOMMENDATIONS I was able to place a transvenous temporary pacemaker via the right subclavian approach urgently in the emergency room and achieved 100% capture. I will leave that rate at 90 beats per minute. A CXR was ordered. She will being transferred to the cardiac intensive care unit where she will remain on ventilator support and intravenous inotrope support. Serial enzymes will be obtained to rule out acute myocardial infarction. I will continue to follow her over the weekend with further recommendations until Dr. Acosta returns on Saturday. Her prognosis is guarded at this time. There are no family members currently available to speak with. MD JOAQUIN Mitchell/ASHLEY /3:28 PM /4:13 PM DARSHANA
[2016-10-27 16:29] LABS: APTT (PATIENT) 21.5 SEC (24.3-30.1); INTERNATIONAL NORMALIZED RATIO 0.9 RATIO; PROTHROMBIN TIME - PATIENT 10.1 SEC (9.8-11.6)
[2016-10-27 16:39] LABS: BASOPHIL # 0.1 TH/MM3 (0-0.2); BASOPHIL % 0.5 % (0.0-2.0); EOSINOPHIL # 0.2 TH/MM3 (0-0.4); HEMATOCRIT 42.9 % (35.0-46.0); HEMO FLAGS DIFF FINAL; LYMPH % 10.9 % (9.0-44.0); LYMPHOCYTE # 1.9 TH/MM3 (1.0-4.8); MEAN CELL VOLUME 88.8 FL (80.0-100.0); MEAN CORPUSCULAR HEMOGLOBIN 26.2 PG (27.0-34.0); MONO % 6.8 % (0.0-8.0); NEUT % 80.8 % (16.0-70.0); PLATELET COUNT 230 TH/MM3 (150-450); RED BLOOD COUNT 4.83 MIL/MM3 (4.00-5.30); WHITE BLOOD COUNT 17.3 TH/MM3 (4.0-11.0)
[2016-10-27] MEDS ORDERED: SODIUM CHLORIDE 0.9% FLUSH 10 ML FLUSH IV FLUSH PRN (16:45)
[2016-10-27] MEDS ORDERED: ASPIRIN 325 MG TAB NG SCH (16:45)
[2016-10-27] MEDS ORDERED: FUROSEMIDE 40 MG/4 ML VIAL IV PUSH ONE (16:45)
[2016-10-27 16:46] LABS: ANION GAP 13 MEQ/L (5-15); BICARBONATE 22.7 MEQ/L (21.0-32.0); BLOOD UREA NITROGEN 17 MG/DL (7-18); CHLORIDE 88 MEQ/L (98-107); GLOMERULAR FILTRATION RATE 37 ML/MIN (>89)
--- NOTE | 2016-10-27 16:49 | PD ---
HPI Chief Complaint: Cardiac Complaint Time Seen by Provider: 14:46 Travel History International Travel<30 days: No Contact w/Intl Traveler<30days: No Traveled to known affect area: No History of Present Illness HPI 61yo F was called as cardiac alert s/p being found to be in complete heart block by EVAC. Pt did complaint of chest pain to me when I asked but was diaphoretic and became more lethargic so I was not able to obtain a good history. Pt was sob and hypotensive and immediately placed on transcutaneous pacer. Capture was obtained with 120mV. Pt was given ativan 1mg IV for pain. Pt was moving all extremities. She was also nauseous and given zofran. 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 Asher was called for emergent transvenous pacer. PFSH Past Medical History Hx Anticoagulant Therapy: Yes (PLAVIX) Arthritis: Yes Asthma: Yes Autoimmune Disease: No Blood Disorders: No Anxiety: No Depression: No Heart Rhythm Problems: No Cancer: No Cardiac Catheterization: Yes (3 STENTS 2012/XIMENA-2 leg stents 2013) Cardiovascular Problems: Yes High Cholesterol: Yes Chemotherapy: No Chest Pain: Yes Congestive Heart Failure: Yes COPD: Yes Cerebrovascular Accident: No Coronary Artery Disease: Yes Diabetes: Yes Patient Takes Glucophage: Yes Diminished Hearing: No Deep Vein Thrombosis: Yes Endocrine: Yes Gastrointestinal Disorders: Yes GERD: Yes Genitourinary: Yes Hepatitis: No Hiatal Hernia: No Heparin Induced Thrombocytopen: No Hypertension: Yes Immune Disorder: No Implanted Vascular Access Dvce: Yes Kidney Stones: No Musculoskeletal: Yes Neurologic: Yes Psychiatric: Yes Reproductive: No Respiratory: Yes Immunizations Current: Yes Migraines: Yes Myocardial Infarction: Yes (X2 2012) Radiation Therapy: No Renal Failure: Yes (had x1 for fluid removal) Seizures: No Sickle Cell Disease: No Sleep Apnea: Yes (no bipap due claustrophobia) Thyroid Disease: No Ulcer: No Menopausal: Yes : 2 Para: 2 Tubal Ligation: Yes Past Surgical History Abdominal Surgery: Yes (gallbladder remmoved) AICD: No Appendectomy: No Arteriovenous Shunt: No Body Medical Devices: STENTS Cardiac Surgery: No Cholecystectomy: Yes Coronary Artery Bypass Graft: No Ear Surgery: No Endocrine Surgery: No Eye Surgery: Yes (lasix surgery bilat ) Genitourinary Surgery: No Gynecologic Surgery: No Insulin Pump: No Joint Replacement: No Neurologic Surgery: No Oral Surgery: No Pacemaker: No Thoracic Surgery: No Tonsillectomy: Yes Other Surgery: Yes (HEART CATH. CARDIAC STENTS) Social History Alcohol Use: No (PT DENIES) Tobacco Use: No (quit 1 year 2014) Substance Use: No Allergies-Medications (Allergen,Severity, Reaction): Coded Allergies: codeine (Unverified Allergy, Intermediate, rash, 10/23/16) penicillin G (Unverified Allergy, Intermediate, RASH,FEVER, SEIZURE, ) hydromorphone (Unverified Adverse Reaction, Intermediate, Nausea/Vomiting , 10/23/16) very lightheaded *MDRO Multi-Drug Resistant Organism (Verified Adverse Reaction, Unknown, Cleared 04/25/16, 09/19/16) MRSA (leg wound) 04/2015 MRSA PCR screen NEGATIVE - 03/26/16 & 04/25/16 Cleared per Infection Control Uncoded Allergies: MORPHIN (Adverse Reaction, Intermediate, Hypotension, 09/20/16) PT SEES DOUBLE AND HYPOTENSION Reported Meds & Prescriptions Reported Meds & Active Scripts Active Spironolactone 25 Mg Tab 25 Mg PO BIDPC Lisinopril 10 Mg Tab 10 Mg PO DAILY 30 Days Coreg (Carvedilol) 3.125 Mg Tab 3.125 Mg PO BID Gabapentin 300 Mg Cap 300 Mg PO TID Reported Lantus Inj (Insulin Glargine) 1,000 Unit/10 Ml Vial 75 Units SQ BID Novolog Inj (Insulin Aspart) 1,000 Unit/10 Ml Vial 48 Units SQ TIDAC Bumetanide 1 Mg Tab 1 Mg PO BID Aspirin DR (Aspirin) 81 Mg Tabdr 81 Mg PO DAILY Plavix (Clopidogrel Bisulfate) 75 Mg Tab 75 Mg PO DAILY Atrovent HFA 12.9 GM Inh (Ipratropium [place]) 17 Mcg/Act Aer 2 Puff INH TID PRN Proventil Hfa 6.7 GM Inh (Albuterol Sulfate) 90 Mcg/Act Aer 2 Puff INH Q4-6H PRN Nitroglycerin SL (Nitroglycerin) 0.4 Mg Subl 0.4 Mg SL DIRECTED PRN ONE TABLET UNDER THE TONGUE NEEDED FOR CHEST PAIN, MAY REPEAT EVERY FIVE MINUTES FOR A TOTAL OF 3 DOSES OR CALL 911 IF NO RELIEF Atorvastatin (Atorvastatin Calcium) 80 Mg Tab 80 Mg PO DAILY Omeprazole 20 Mg Tab 20 Mg PO DAILY Review of Systems Except as stated in HPI: all other systems reviewed are Neg Physical Exam Narrative GENERAL: 61yo F in distress. SKIN: Focused skin assessment warm/dry. HEAD: Atraumatic. Normocephalic. CARDIOVASCULAR: Regular rate and rhythm. No murmur appreciated. RESPIRATORY: No accessory muscle use. Clear to auscultation. Breath sounds equal bilaterally. GASTROINTESTINAL: Abdomen soft, non-tender, nondistended. Morbidly obese. MUSCULOSKELETAL: No obvious deformities. No clubbing. No cyanosis. No edema. NEUROLOGICAL: Awake and answers questions. Pt became more lethargic throughout history. Data Data Last Documented VS Vital Signs Date Time Temp Pulse Resp B/P (MAP) Pulse Ox O2 Delivery O2 Flow Rate FiO2 10/27/16 17:10 88 16 164/58 (93) 100 Auto-Vent 100 10/27/16 14:44 15 10/27/16 14:03 97.6 Orders Orders Lorazepam Inj (Ativan Inj) (10/27/16 14:04) Atropine Inj (Atropine Inj) (10/27/16 14:04) Ondansetron Inj (Zofran Inj) (10/27/16 14:23) Etomidate Inj (Amidate Inj) (10/27/16 14:29) Etomidate Inj (Amidate Inj) (10/27/16 14:31) Complete Blood Count With Diff (10/27/16 14:46) Basic Metabolic Panel (Bmp) (10/27/16 14:46) Troponin I (10/27/16 14:46) Prothrombin Time / Inr (Pt) (10/27/16 14:46) Act Partial Throm Time (Ptt) (10/27/16 14:46) Ckmb (Isoenzyme) Profile (10/27/16 14:46) Midazolam 100 Mg/Ml Inj (Versed 100 Mg/M (10/27/16 15:00) Ondansetron Inj (Zofran Inj) (10/27/16 15:00) Etomidate Inj (Amidate Inj) (10/27/16 15:00) Rocuronium Inj (Zemuron Inj) (10/27/16 15:00) Chest, Single Ap (10/27/16 ) Propofol 1000 Mg/100 Ml Inj (Diprivan 10 (10/27/16 14:49) Norepinephrine Inj (Levophed Inj) (10/27/16 15:11) Norepinephrine-Dextrose Drip (Levophed-D (10/27/16 15:15) Terbutaline Inj (Brethine Inj) (10/27/16 15:15) Vascular Access Team Consult/P PRN (10/27/16 16:04) Vascular Poc Ultrasound (10/27/16 ) Furosemide Inj (Lasix Inj) (10/27/16 16:45) Electrocardiogram (10/27/16 ) Ckmb (Isoenzyme) Profile (10/27/16 16:41) Ckmb (Isoenzyme) Profile (10/28/16 04:41) Troponin I (10/27/16 16:41) Troponin I (10/28/16 04:41) ^ Notify Of These Side Effects (10/27/16 16:41) Notify Dr: Heart Rate (10/27/16 16:41) Sodium Chloride 0.9% Flush (Ns Flush) (10/27/16 21:00) Sodium Chloride 0.9% Flush (Ns Flush) (10/27/16 16:45) Aspirin (Aspirin) (10/27/16 16:45) Aspirin Ec (Ecotrin Ec) (10/28/16 09:00) Classroom Instructional Aide / Telemetry ELENA.Q8H (10/27/16 16:41) Lorazepam Inj (Ativan Inj) (10/27/16 17:00) Atropine Inj (Atropine Inj) (10/27/16 17:00) Epinephrine (1:1000) Inj (Adrenalin (1:1 (10/27/16 17:00) Epinephrine (1:1000) Inj (Adrenalin (1:1 (10/27/16 17:00) CKMB (10/27/16 15:55) CKMB% (10/27/16 15:55) Restraints Non-Violent ELENA.Q3H (10/27/16 16:51) Urinary Catheter Insert/Apply (10/27/16 16:51) Albina-Gastric Tube Insert/Mon (10/27/16 16:51) Urinalysis - C+S If Indicated (10/27/16 17:07) Blood Culture (10/27/16 17:07) Lactic Acid Sepsis Protocol (10/27/16 17:07) Vancomycin Inj (Vancomycin Inj) (10/27/16 17:15) Aztreonam Inj (Azactam Inj) (10/27/16 17:15) Admit Order (Ed Use Only) (10/27/16 17:10) CKMB (10/27/16 21:20) CKMB% (10/27/16 21:20) Labs Laboratory Tests Test 10/27/16 15:55 10/27/16 17:10 White Blood Count 17.3 TH/MM3 Red Blood Count 4.83 MIL/MM3 Hemoglobin 12.7 GM/DL Hematocrit 42.9 % Mean Corpuscular Volume 88.8 FL Mean Corpuscular Hemoglobin 26.2 PG Mean Corpuscular Hemoglobin Concent 29.5 % Red Cell Distribution Width 15.0 % Platelet Count 230 TH/MM3 Mean Platelet Volume 9.6 FL Neutrophils (%) (Auto) 80.8 % Lymphocytes (%) (Auto) 10.9 % Monocytes (%) (Auto) 6.8 % Eosinophils (%) (Auto) 1.0 % Basophils (%) (Auto) 0.5 % Neutrophils # (Auto) 14.0 TH/MM3 Lymphocytes # (Auto) 1.9 TH/MM3 Monocytes # (Auto) 1.2 TH/MM3 Eosinophils # (Auto) 0.2 TH/MM3 Basophils # (Auto) 0.1 TH/MM3 CBC Comment DIFF FINAL Differential Comment Prothrombin Time 10.1 SEC Prothromb Time International Ratio 0.9 RATIO Activated Partial Thromboplast Time 21.5 SEC Blood Urea Nitrogen 17 MG/DL Creatinine 1.46 MG/DL Random Glucose 1030 MG/DL Calcium Level 8.3 MG/DL Sodium Level 124 MEQ/L Potassium Level 5.0 MEQ/L Chloride Level 88 MEQ/L Carbon Dioxide Level 22.7 MEQ/L Anion Gap 13 MEQ/L Estimat Glomerular Filtration Rate 37 ML/MIN Total Creatine Kinase 158 U/L Creatine Kinase MB 4.2 NG/ML Troponin I 0.03 NG/ML Urine Color LIGHT-YELLOW Urine Turbidity CLEAR Urine pH 6.0 Urine Specific [place] 1.021 Urine Protein TRACE mg/dL Urine Glucose (UA) 1000 mg/dL Urine Ketones NEG mg/dL Urine Occult Blood TRACE Urine Nitrite NEG Urine Bilirubin NEG Urine Urobilinogen LESS THAN 2.0 MG/DL Urine Leukocyte Esterase NEG Urine WBC 1 /hpf Urine Bacteria RARE /hpf Microscopic Urinalysis Comment CATH-CULTURE IND MDM Medical Decision Making Medical Screen Exam Complete: Yes Emergency Medical Condition: Yes Interpretation(s) EKG: Complete heart block with rate of 24bpm. Differential Diagnosis Complete heart block vs. DKA vs. Hyperglycemic hyperosmolar nonketoacidosis vs. ACS Narrative Course 61yo F with CHF, DM here in complete heart block. Pt was hypotensive and diaphoretic and was immediately placed on transcutaneous pacer. Pt is awake and answers questions, following commands. Dr. Asher was called and recommended atropine 1mg and epinephrine 0.5mg IV before he arrives if needed. Pt was also given ativan 1mg IV since she required 120mV before capture was obtained. Pt became more lethargic by the time Dr. Asher arrived and was emergently intubated in the ED. Pt was given another dose of epinephrine 0.5mg because of low blood pressure and then started on norepinephrine drip after transvenous pacer placed by Dr. Asher. I did attempt a right femoral line to obtain more access but the guide wire would not thread so attempt was abandoned. Pt later had total of 3 20 gauge peripheral IVs. Norepinephrine was only at 2mcg/min and later turned off because blood pressure improved. Labs reviewed, leukocytosis at 17.3, Glucose was markedly elevated at 1030. Hyponatremia secondary to hyperglycemia. Troponin 0.03. Creatinine elevated at 1.46. K: 5.0. Pt was already given NS IVF x2. Blood culture and lactic acid ordered as well as empirically covered with vancomycin and aztreonam. Discussed with Dr. Ramos and accepted to ICU. Critical Care Narrative Aggregate critical care time was 110 minutes. Time to perform other separately billable procedures was not included in the critical care time. My time did not include minutes spent treating any other patients simultaneously or on activities that did not directly contribute to the patient's treatment. The services I provided to this patient were to treat and/or prevent clinically significant deterioration that could result in: cardiovascular collapse or . I provided critical care services requiring my management, as noted below: Chart data review, documentation time, medication orders and management, vital sign assessments/reviewing monitor data, ordering and reviewing lab tests, ordering and interpreting/reviewing x-rays and diagnostic studies, care of the patient and discussion of the patient with the admitting physicians. Procedures Procedure Narrative The patient was put in optimal position for the procedure. Rapid sequence intubation was initiated by me using 30 milligrams of etomidate IV and 80 milligrams of rocuronium IV. The patient was intubated with a 8.0 cuffed endotracheal tube. Tube placement was confirmed by visualization of the tube and balloon passing through the cords, capnometry and subsequent chest x-ray. Breath sounds were equal and well aerated bilaterally postintubation. No breath sounds over stomach. Patient tolerated procedure well. Transthoracic pacer for the indication of complete heart block. Pads for transthoracic pacing were placed on the chest. Pacing was begun at 65bpm with mechanical capture at 120mV. Diagnosis Primary Impression: AV block, 3rd degree Admitting Information Admitting Physician Requests: Ivory Cruz DO Oct 27, 2016 16:49
[2016-10-27 16:50] LABS: SODIUM (NA) 124 MEQ/L (136-145)
[2016-10-27 16:52] LABS: CREATINE KINASE 158 U/L (26-192)
[2016-10-27] MEDS ORDERED: ATROPINE SULFATE 1 MG/10 ML SYRINGE IV PUSH ONE (17:00)
[2016-10-27] MEDS ORDERED: LORazepam 2 MG/ML VIAL IV PUSH ONE (17:00)
[2016-10-27] MEDS ORDERED: EPINEPHrine HCL (1:1000) 1 MG/ML VIAL IM ONE ×2 (17:00)
[2016-10-27 17:05] LABS: CKMB 4.2 NG/ML (0.5-3.6)
[2016-10-27] MEDS ORDERED: VANCOMYCIN INJ 1,250 MG in SODIUM CHLOR 0.9% 250 ML INJ 250 ML IV ONE (17:15)
[2016-10-27] MEDS ORDERED: AZTREONAM INJ 1,000 MG in SODIUM CHLORIDE 0.9% INJ 100 ML IV ONE (17:15)
[2016-10-27 17:29] LABS: BLOOD GAS BASE EXCESS 2.3 mmol/L (-2-2); BLOOD GAS CARBOXYHEMOGLOBIN 1.4 % (0-4); BLOOD GAS HCO3 27 mmol/L (22-26); BLOOD GAS O2 HGB SATURATION 98 % (90-100); BLOOD GAS OXYGEN CONTENT 18.9 Vol % (12.0-20.0); BLOOD GAS PCO2 51 mmHg (38-42); BLOOD GAS PO2 279 mmHG (61-120); BLOOD GAS TOTAL HGB 13.4 G/DL (12.0-16.0); TEMP CORR TO 98.6
[2016-10-27 17:30] LABS: CRITICAL VALUE YES; OXYGEN DEVICE VENTILATOR
[2016-10-27 17:31] LABS: DRAW SITE RT BRACHIAL; FIO2 100 %; NUMBER OF ARTERIAL PUNCTURES 1; STAT YES; VENT SETTINGS 500/16/+5
--- NOTE | 2016-10-27 18:24 | HHI.HP ---
[facility] Service Critical Care Medicine Primary Care Physician Sean Silva, DO Admission Diagnosis Complete heart block Diagnosis: Chief Complaint: Weakness. Travel History International Travel<30 Days: No Contact w/Intl Traveler <30 Da: No Traveled to Known Affected Are: No History of Present Illness 61 y/o woman presented with CHB, hypotension, weakness. Required intubation and mechanical ventilation. Temporary pacer wire placed by Dr. Ingram. On levophed for BP support. She has poorly controlled DM and glucose now > 1000. Acid/base balance acceptable. I will start an insulin gtt and admit her to CVICU. ECHO 09/24: Systolic failure, EF 30%, diastolic dysfunction Grade I Past Family Social History Allergies: Coded Allergies: codeine (Unverified Allergy, Intermediate, rash, 10/23/16) penicillin G (Unverified Allergy, Intermediate, RASH,FEVER, SEIZURE, ) hydromorphone (Unverified Adverse Reaction, Intermediate, Nausea/Vomiting , 10/23/16) very lightheaded *MDRO Multi-Drug Resistant Organism (Verified Adverse Reaction, Unknown, Cleared 04/25/16, 09/19/16) MRSA (leg wound) 04/2015 MRSA PCR screen NEGATIVE - 03/26/16 & 04/25/16 Cleared per Infection Control Uncoded Allergies: MORPHIN (Adverse Reaction, Intermediate, Hypotension, 09/20/16) PT SEES DOUBLE AND HYPOTENSION Past Medical History Hx Anticoagulant Therapy: Yes (PLAVIX) Arthritis: Yes Asthma: Yes Autoimmune Disease: No Blood Disorders: No Anxiety: No Depression: No Heart Rhythm Problems: No Cancer: No Cardiac Catheterization: Yes (3 STENTS 2012/XIMENA-2 leg stents 2013) Cardiovascular Problems: Yes High Cholesterol: Yes Chemotherapy: No Chest Pain: Yes Congestive Heart Failure: Yes COPD: Yes Cerebrovascular Accident: No Coronary Artery Disease: Yes Diabetes: Yes Patient Takes Glucophage: Yes Diminished Hearing: No Deep Vein Thrombosis: Yes Endocrine: Yes Gastrointestinal Disorders: Yes GERD: Yes Genitourinary: Yes Hepatitis: No Hiatal Hernia: No Heparin Induced Thrombocytopen: No Hypertension: Yes Immune Disorder: No Implanted Vascular Access Dvce: Yes Kidney Stones: No Musculoskeletal: Yes Neurologic: Yes Psychiatric: Yes Reproductive: No Respiratory: Yes Immunizations Current: Yes Migraines: Yes Myocardial Infarction: Yes (X2 2012) Radiation Therapy: No Renal Failure: Yes (had x1 for fluid removal) Seizures: No Sickle Cell Disease: No Sleep Apnea: Yes (no bipap due claustrophobia) Thyroid Disease: No Ulcer: No Menopausal: Yes : 2 Para: 2 Tubal Ligation: Yes Past Surgical History Abdominal Surgery: Yes (gallbladder remmoved) AICD: No Appendectomy: No Arteriovenous Shunt: No Body Medical Devices: STENTS Cardiac Surgery: No Cholecystectomy: Yes Coronary Artery Bypass Graft: No Ear Surgery: No Endocrine Surgery: No Eye Surgery: Yes (lasix surgery bilat ) Genitourinary Surgery: No Gynecologic Surgery: No Insulin Pump: No Joint Replacement: No Neurologic Surgery: No Oral Surgery: No Pacemaker: No Thoracic Surgery: No Tonsillectomy: Yes Other Surgery: Yes (HEART CATH. CARDIAC STENTS) Social History Alcohol Use: No (PT DENIES) Tobacco Use: No (quit 1 year 2014) Substance Use: No Allergies-Medications Allergies-Medications (Allergen,Severity, Reaction): Coded Allergies: codeine (Unverified Allergy, Intermediate, rash, 10/23/16) penicillin G (Unverified Allergy, Intermediate, RASH,FEVER, SEIZURE, ) hydromorphone (Unverified Adverse Reaction, Intermediate, Nausea/Vomiting , 10/23/16) very lightheaded *MDRO Multi-Drug Resistant Organism (Verified Adverse Reaction, Unknown, Cleared 04/25/16, 09/19/16) MRSA (leg wound) 04/2015 MRSA PCR screen NEGATIVE - 03/26/16 & 04/25/16 Cleared per Infection Control Uncoded Allergies: MORPHIN (Adverse Reaction, Intermediate, Hypotension, 09/20/16) PT SEES DOUBLE AND HYPOTENSION Reported Meds & Prescriptions Reported Meds & Active Scripts Active Spironolactone 25 Mg Tab 25 Mg PO BIDPC Lisinopril 10 Mg Tab 10 Mg PO DAILY 30 Days Coreg (Carvedilol) 3.125 Mg Tab 3.125 Mg PO BID Gabapentin 300 Mg Cap 300 Mg PO TID Reported Lantus Inj (Insulin Glargine) 1,000 Unit/10 Ml Vial 75 Units SQ BID Novolog Inj (Insulin Aspart) 1,000 Unit/10 Ml Vial 48 Units SQ TIDAC Bumetanide 1 Mg Tab 1 Mg PO BID Aspirin DR (Aspirin) 81 Mg Tabdr 81 Mg PO DAILY Plavix (Clopidogrel Bisulfate) 75 Mg Tab 75 Mg PO DAILY Atrovent HFA 12.9 GM Inh (Ipratropium [place]) 17 Mcg/Act Aer 2 Puff INH TID PRN Proventil Hfa 6.7 GM Inh (Albuterol Sulfate) 90 Mcg/Act Aer 2 Puff INH Q4-6H PRN Nitroglycerin SL (Nitroglycerin) 0.4 Mg Subl 0.4 Mg SL DIRECTED PRN ONE TABLET UNDER THE TONGUE NEEDED FOR CHEST PAIN, MAY REPEAT EVERY FIVE MINUTES FOR A TOTAL OF 3 DOSES OR CALL 911 IF NO RELIEF Atorvastatin (Atorvastatin Calcium) 80 Mg Tab 80 Mg PO DAILY Omeprazole 20 Mg Tab 20 Mg PO DAILY Physical Exam Vital Signs Vital Signs Date Time Temp Pulse Resp B/P Pulse Ox O2 Delivery O2 Flow Rate FiO2 10/27/16 17:51 87 16 96/54 100 Auto-Vent 100 10/27/16 17:40 87 16 98/47 100 Auto-Vent 100 10/27/16 17:10 88 16 164/58 100 Auto-Vent 100 10/27/16 16:41 86 15 165/69 100 Auto-Vent 100 10/27/16 16:06 88 16 146/63 100 Auto-Vent 100 10/27/16 16:03 86 16 170/67 100 Auto-Vent 10/27/16 15:36 80 16 138/70 100 Auto-Vent 100 10/27/16 15:27 80 16 119/59 100 Auto-Vent 100 10/27/16 15:09 76 16 58/33 100 Auto-Vent 100 10/27/16 15:02 76 10/27/16 14:48 100 100 10/27/16 14:46 67 10/27/16 14:44 67 18 175/91 100 Non-Rebreather 15 10/27/16 14:43 100 10/27/16 14:38 67 10/27/16 14:35 69 18 215/95 92 Non-Rebreather 15 10/27/16 14:26 74 19 209/111 68 Non-Rebreather 15 10/27/16 14:16 28 28 100 Non-Rebreather 15 10/27/16 14:10 28 10/27/16 14:03 97.6 24 28 68/42 100 Physical Exam Gen: Very large, middle age woman Head: Normal. Neck: Supple, orally intubated. Lungs: Clear, light wheezes but good air movement. Diffuse crackles. Heart: Paced rhythm, regular. +JVD Abdomen: Large, soft. Extremities: Tepid Neuro: Sedated on vent. Moves 4 limbs. BERE. Gag, cough intact. Laboratory Laboratory Tests Test 10/27/16 10/27/16 15:55 17:14 White Blood Count 17.3 Red Blood Count 4.83 Hemoglobin 12.7 Hematocrit 42.9 Mean Corpuscular Volume 88.8 Mean Corpuscular Hemoglobin 26.2 Mean Corpuscular Hemoglobin 29.5 Concent Red Cell Distribution Width 15.0 Platelet Count 230 Mean Platelet Volume 9.6 Neutrophils (%) (Auto) 80.8 Lymphocytes (%) (Auto) 10.9 Monocytes (%) (Auto) 6.8 Eosinophils (%) (Auto) 1.0 Basophils (%) (Auto) 0.5 Neutrophils # (Auto) 14.0 Lymphocytes # (Auto) 1.9 Monocytes # (Auto) 1.2 Eosinophils # (Auto) 0.2 Basophils # (Auto) 0.1 CBC Comment DIFF FINAL Differential Comment Prothrombin Time 10.1 Prothromb Time International 0.9 Ratio Activated Partial 21.5 Thromboplast Time Sodium Level 124 Potassium Level 5.0 Chloride Level 88 Carbon Dioxide Level 22.7 Anion Gap 13 Blood Urea Nitrogen 17 Creatinine 1.46 Estimat Glomerular Filtration 37 Rate Random Glucose 1030 Calcium Level 8.3 Total Creatine Kinase 158 Creatine Kinase MB 4.2 Troponin I 0.03 Blood Gas Puncture Site RT BRACHIAL Blood Gas Patient Temperature 98.6 Blood Gas HCO3 27 Blood Gas Base Excess 2.3 Blood Gas Oxygen Saturation 98 Arterial Blood pH 7.35 Arterial Blood Partial 51 Pressure CO2 Arterial Blood Partial 279 Pressure O2 Arterial Blood Oxygen Content 18.9 Arterial Blood 1.4 Carboxyhemoglobin Arterial Blood Methemoglobin 1.0 Blood Gas Hemoglobin 13.4 Oxygen Delivery Device VENTILATOR Blood Gas Ventilator Setting 500/16/+5 Blood Gas Inspired Oxygen 100 Result Diagram: 10/27/16 1555 10/27/16 1551 Assessment and Plan Assessment and Plan 1. Symptomatic complete heart block. 2. Nonketotic hyperglycemia (> 1000) 3. Morbid obesity. 4. Respiratory failure 5. Systolic Heart Failure, chronic Plan: 1. Temp pacer wire placed by Cardiology Service. 2. PRVC vent mode. 3. Insulin gtt. 4. Heparin sq. 5. Cardiac markers. 6. H2 waldemar. 7. Admit CVICU. Overall impression: Critically ill with cardiogenic shock and hypotension due to severe bradycardia and complete heart block. Critical Care 40 mins Update 2130 hours: Patient is back in sinus rhythm at 88. Pacer placed on demand move (VVI) rate 60. Reliable sensing 100%. Ricardo Carney MD Oct 27, 2016 18:24
[2016-10-27 18:28] LABS: BACTERIA, URINE RARE /hpf; BLOOD, URINE TRACE (NEG); GLUCOSE,URINE 1000 mg/dL (NEG); KETONE, URINE NEG (NEG); NITRITE,URINE NEG (NEG); URINE COLOR LIGHT-YELLOW (YELLW/STRAW)
[2016-10-27 18:29] LABS: COMMENT (UR) CATH-CULTURE IND; CULTURE IF INDICATED CATH CULTURE IND
[2016-10-27] MEDS ORDERED: LACTULOSE SYRUP 20 GM/30 ML CUP PO PRN (18:30)
[2016-10-27] MEDS ORDERED: BISACODYL 10 MG SUPP RECTAL PRN (18:30)
[2016-10-27] MEDS ORDERED: ONDANSETRON HCL 4 MG/2 ML VIAL IV PRN (18:30)
[2016-10-27] MEDS ORDERED: PROPOFOL 1000 MG/100 ML INJ 100 ML IV SCH (18:30)
[2016-10-27] MEDS ORDERED: SENNOSIDES 8.6 MG TAB PO PRN (18:30)
[2016-10-27] MEDS ORDERED: CHLORHEXIDINE GLUCONATE 2 % 1 PACK (2 CLOTHS) TOP PRN (18:30)
[2016-10-27] MEDS ORDERED: RESP: ALBUTEROL 2.5 MG/IPRATROPIUM 0.5 MG NEB (PRN) INH (18:30)
[2016-10-27] MEDS ORDERED: MAGNESIUM HYDROXIDE SUSP 30 ML CUP PO PRN (18:30)
[2016-10-27] MEDS ORDERED: ACETAMINOPHEN 325 MG TAB PO PRN (18:30)
[2016-10-27] MEDS ORDERED: MISCELLANEOUS NURSING INFORMATION XX SCH (18:30)
[2016-10-27] MEDS ORDERED: DEXTROSE 50% IN WATER 50 ML VIAL(D50) IV PUSH PRN (18:45)
[2016-10-27] MEDS: SODIUM CHLOR 0.9% 1000 ML INJ 1,000 ML IV SCH (18:56)
[2016-10-27] MEDS: INSULIN REGULAR 100 UNITS/100 ML NS ALGORITHM 3 IV PRN ×2 (19:17)
[2016-10-27 20:38] LABS: LACTIC ACID GHOST NOT REPORTABLE
[2016-10-27] MEDS ORDERED: INSULIN DETEMIR 100 UNITS/ML VIAL SQ SCH (21:00)
--- NOTE | 2016-10-27 21:34 | PD.PROCEDR ---
Procedure Note Procedure DX: Cardiogenic Shock OP: Insertion Left Internal Jugular Central Line ([id number]) Procedure: Time out. Left neck prepped and draped. Left internal jugular vein cannulated with ultrasound guidance and wire easily advanced. Catheter passed over wire to 17 cm. Lumens aspirated and flushed. Dressing applied. Immediate blood sugar drawn and I instructed the nurse to use line immediately for levophed infusion because peripheral ivs were infiltrated and right cordis was subcutaneous only. CXR ordered. Ricardo Carney MD Oct 27, 2016 21:34
--- NOTE | 2016-10-27 21:56 | RADRPT ---
EXAM DATE/TIME: 10/27/2016 21:41 [facility] COMPARISON: CHEST SINGLE AP, October 27, 2016, 15:58. INDICATIONS : Central venous line placement. MEDICAL HISTORY : Cardiovascular disease. SURGICAL HISTORY : Stents. ENCOUNTER: Subsequent ACUITY: 1 day PAIN SCORE: Non-responsive. LOCATION: Bilateral chest FINDINGS: Left IJ line is present with tip overlapping the expected region of the SVC. The other lines and tube s have not changed. No definite pneumothorax is seen for technique. There is improvement in pulmonary edema with mild edema remaining. The rest of the examination has not significantly changed. CONCLUSION: Improvement in aeration of the lungs. Jose G Harrison MD on October 27, 2016 at 21:53 Board Certified Radiologist. This report was verified electronically.
[2016-10-27 22:00] LABS: CREATINE KINASE 154 U/L (26-192)
[2016-10-27 22:07] LABS: BLOOD GAS VENOUS BASE EXCESS 5.1 mmol/L (-2-2); BLOOD GAS VENOUS HCO3 31 mmol/L (22-26); BLOOD GAS VENOUS O2 CONTENT 15.8 Vol % (9.0-17.0); BLOOD GAS VENOUS O2 HGB SAT 84 % (70-76); BLOOD GAS VENOUS PCO2 59 mmHg (44-48); BLOOD GAS VENOUS PO2 55 mmHg (35-40); BLOOD GAS VENOUS pH 7.34 (7.360-7.400); CRITICAL VALUE YES; TEMP CORR TO 98.6
[2016-10-27 22:08] LABS: DRAW SITE CENTRAL LINE; FIO2 100 %; OXYGEN DEVICE VENTILATOR; STAT YES; VENT SETTINGS AC16/550/+5
[2016-10-27] MEDS: SODIUM CHLORIDE 0.9% FLUSH 10 ML FLUSH IV FLUSH SCH (23:18)
[2016-10-27] MEDS: DOCUSATE SODIUM 50 MG/SENNA 8.6 MG TAB PO SCH (23:18)
[2016-10-27] MEDS: HEPARIN SODIUM - SQ 10,000 UNITS/ML VIAL SQ SCH (23:18)
[2016-10-27] MEDS: BUMETANIDE 1 MG TAB PO SCH (23:18)
[2016-10-27] MEDS: CHLORHEXIDINE 0.12% (ORAL KIT) 15 ML CUP MT SCH (23:19)
[2016-10-28] VITALS (67 sets, daily range): BP systolic 91–159; BP diastolic 0–72; PULSE 68–102; RESP 12–20; TEMP 98.8–100.9; O2SAT 94–100
[2016-10-28] MEDS: CHLORHEXIDINE GLUCONATE 2 % 1 PACK (2 CLOTHS) TOP SCH (04:00)
[2016-10-28] MEDS: INSULIN REGULAR 100 UNITS/100 ML NS ALGORITHM 3 IV PRN ×6 (04:58→20:12)
[2016-10-28 05:00] LABS: ANION GAP 11 MEQ/L (5-15); BICARBONATE 31.5 MEQ/L (21.0-32.0); BLOOD UREA NITROGEN 18 MG/DL (7-18); CHLORIDE 100 MEQ/L (98-107); CREATINE KINASE 133 U/L (26-192); GLOMERULAR FILTRATION RATE 35 ML/MIN (>89); MAGNESIUM 2.7 MG/DL (1.5-2.5); POTASSIUM 3.6 MEQ/L (3.5-5.1); SODIUM (NA) 142 MEQ/L (136-145)
[2016-10-28 05:08] LABS: BLOOD GAS VENOUS BASE EXCESS 6.4 mmol/L (-2-2); BLOOD GAS VENOUS HCO3 32 mmol/L (22-26); BLOOD GAS VENOUS O2 CONTENT 12.7 Vol % (9.0-17.0); BLOOD GAS VENOUS O2 HGB SAT 70 % (70-76); BLOOD GAS VENOUS PCO2 60 mmHg (44-48); BLOOD GAS VENOUS PO2 40 mmHg (35-40); BLOOD GAS VENOUS pH 7.35 (7.360-7.400); TEMP CORR TO 98.6
[2016-10-28 05:09] LABS: CRITICAL VALUE YES; DRAW SITE CENTRAL LINE; FIO2 50 %; OXYGEN DEVICE VENTILATOR; STAT NO; VENT SETTINGS PRVC16/550/0.9/+5
[2016-10-28 05:13] LABS: CKMB 2.6 NG/ML (0.5-3.6)
--- NOTE | 2016-10-28 05:42 | MP ---
cc: LACY BARBOSA M.D., MARIA I. M.D. DATE OF SURGERY: October 27, 2016 PROCEDURE PERFORMED Urgent placement of transvenous temporary ventricular pacemaker. PREOPERATIVE DIAGNOSIS Third degree AV block with hemodynamic compromise. POSTOPERATIVE DIAGNOSIS Third degree AV block with hemodynamic compromise. ANESTHESIA: 10 mL 1% Xylocaine local. COMPLICATIONS None. ESTIMATED BLOOD LOSS None. PROCEDURE TECHNIQUE The patient was in the emergency room and hemodynamically compromised due to third degree AV block. Ventricular scape rhythm 28 beats per minute and poor capture with transcutaneous pacing. The area of the right subclavian was prepped and draped in usual sterile manner. Following 10 mL of 1% Xylocaine for local anesthesia the right subclavian vein was entered with an 18 gauge needle for placement of a floppy J-tip guidewire. The needle was removed and an 8-Maltese introducer pacemaker introducer sheath was placed in the right subclavian vein without difficulty. The dilator and wire removed. Through the introducer sheath a 5-Maltese flow-directed right ventricular pacing wire was passed into the right ventricle and when good capture was seen the balloon was deflated and then the wire was sutured in place. The introducer sheath was also sutured in place and a sterile dressing applied. The patient tolerated the procedure well. There were no immediate complications. CXR ordered. Pacemaker settings will be left at 90 beats per minute, demand 1.5 and 5 MA. MD JOAQUIN Mitchell/DIANE /3:39 PM /5:09 AM DARSHANA
[2016-10-28] MEDS: MIDAZOLAM 100 MG/100 ML INJ 100 ML IV SCH (06:10)
[2016-10-28] MEDS: SODIUM CHLOR 0.9% 1000 ML INJ 1,000 ML IV SCH ×2 (06:10→17:03)
--- NOTE | 2016-10-28 07:28 | HHI.CCPN ---
Subjective Remarks/Hospital Course 61 y/o woman presented with CHB, hypotension, weakness. Required intubation and mechanical ventilation. Temporary pacer wire placed by Dr. Ingram. On levophed for BP support. She has poorly controlled DM and glucose now > 1000. Acid/base balance acceptable. I will start an insulin gtt and admit her to CVICU. ECHO 09/24: Systolic failure, EF 30%, diastolic dysfunction Grade I Subjective: 10/28 Now in sinus rhythm with intrinsic rate in the 70s. Remains on Levophed due to hypotension. On mechanical ventilation. Apparently patient was on Versed drip up to 23 mg/h last night upon arrival from ED. Performing sedation vacation. Objective Vital Signs Date Time Temp Pulse Resp B/P Pulse Ox O2 Delivery O2 Flow Rate FiO2 10/28/16 07:10 100 50 10/27/16 20:05 97.8 86 17 138/77 10/27/16 18:54 Auto-Vent 10/27/16 14:44 15 Intake and Output 10/27/16 10/27/16 10/28/16 08:00 16:00 00:00 Intake Total 517 ml Output Total 4100 ml Balance -3583 ml Result Diagram: 10/27/16 1555 10/28/16 0255 Other Results Laboratory Tests Test 10/27/16 10/27/16 10/28/16 17:14 23:50 04:56 Blood Gas Puncture Site RT BRACHIAL CENTRAL LINE CENTRAL LINE Blood Gas Patient Temperature 98.6 98.6 98.6 Blood Gas HCO3 27 mmol/L (22-26) Blood Gas Base Excess 2.3 mmol/L (-2-2) Blood Gas Oxygen Saturation 98 % (90-100) Arterial Blood pH 7.35 (7.380-7.420) Arterial Blood Partial 51 mmHg (38-42) Pressure CO2 Arterial Blood Partial 279 mmHG Pressure O2 (61-120) Arterial Blood Oxygen Content 18.9 Vol % (12.0-20.0) Arterial Blood 1.4 % (0-4) Carboxyhemoglobin Arterial Blood Methemoglobin 1.0 % (0-2) Blood Gas Hemoglobin 13.4 G/DL (12.0-16.0) Oxygen Delivery Device VENTILATOR VENTILATOR VENTILATOR Blood Gas Ventilator Setting 500/16/+5 AC16/550/+5 PRVC16/550/0.9/+5 Blood Gas Inspired Oxygen 100 % 100 % 50 % Venous Blood pH 7.34 7.35 (7.360-7.400) (7.360-7.400) Venous Blood Partial Pressure 59 mmHg (44-48) 60 mmHg (44-48) CO2 Venous Blood Partial Pressure 55 mmHg (35-40) 40 mmHg (35-40) O2 Venous Blood HCO3 31 mmol/L 32 mmol/L (22-26) (22-26) Venous Blood Oxygen Saturation 84 % (70-76) 70 % (70-76) Venous Blood Oxygen Content 15.8 Vol % 12.7 Vol % (9.0-17.0) (9.0-17.0) Venous Blood Base Excess 5.1 mmol/L 6.4 mmol/L (-2-2) (-2-2) Objective Remarks Drips: Versed 8 g per hour Propofol 17 micrograms per KG per minute Insulin 5 units per hour Levophed 4 mcg/m GENERAL: Obese critical ill-appearing female who is orotracheally tracheally intubated SKIN: Warm and dry. Venous stasis changes bilateral lower extremities. 5 cm wound overlying left chiang, no drainage or fluctuance. HEAD: Atraumatic. Normocephalic. EYES: Pupils equal and round, 3 mm and reactive bilaterally. No scleral icterus. No injection or drainage. ENT: No nasal bleeding or discharge. Mucous membranes pink and moist. NECK: Trachea midline. +JVD. CARDIOVASCULAR: Regular rate and rhythm, sinus rhythm on monitor with rate in 80s. No murmurs rubs or gallops. Transvenous pacer in place right subclavian site. That she has been sutured around the transvenous pacer as there was some backflow of blood and concern for entrainment of air. RESPIRATORY: Coarse breath sounds bilaterally with no wheezes, rales. GASTROINTESTINAL: Abdomen soft, non-tender, nondistended. Bowel sounds present. MUSCULOSKELETAL: Extremities without clubbing, cyanosis. 1+ edema all extremities. NEUROLOGICAL: Pupils as per above. Patient heavily sedated and nonresponsive. A/P Assessment and Plan NEURO: Acute encephalopathy secondary to hypotension, hypercapnia Peripheral neuropathy On Versed drip at 8 mg per hour and propofol 17 my grams per KG per minute. Will attempt to minimize versed as this can contribute to protracted ICU delirium. Sedation vacation today. Continue propofol for sedation. Will do test dose of fentanyl and consider utilization of fentanyl for analgosedation. She does have a history of hypotension with morphine but this is typically less of issue with fentanyl and she is under appropriate monitoring with airway management as well. Target RASS -2 Gabapentin on hold for now RESP: Acute hypercapnic respiratory failure Pulmonary edema (improved) Former history of tobacco abuse Ventilator bundle PRVC tidal volume 500/rate 18/P5/FiO2 50 Pulmonary edema improved on repeat imaging after patient has received diuretics and after treatment of dysrhythmia No SBT at this time until decision regarding PPM/PIER MASTER ASSISTANT. CV: Third degree heart block status post transvenous pacer Cardiogenic shock secondary to third degree heart block, improved Chronic systolic heart failure secondary to ischemic cardiomyopathy Left bundle branch block CAD with prior stents Peripheral arterial disease Hyperlipidemia Coreg on hold due to bradycardia. K was 5 which is not elevated enough to expect 3rd degree heart block. ?medication effect of coreg or took more than intended? Troponin elevation minimal and not unexpected given presentation of hypotension , etc. Continue ASA [address] Asher. Plavix on hold. Hold lisinopril and spironolactone due to hypotension. Continue Lipitor 80 mg by mouth daily TVP- VVI back up rate 50, 20A (threshold for capture ~15), sensitivity changed to 1 to address failure to sense. Discussed with Dr. Steel. Patient is in sinus rhythm but recommends maintain transvenous pacer at this time with possible cardiac resynchronization therapy and ICD on Saturday given presence of ischemic cardiomyopathy with EF 30%, LBBB and need to better optimize betablocker therapy in patient who has now experienced 3rd degree heart block on low dose betablocker therapy. Levophed to maintain MAP >65, requiring 2-4 mcg/min while sedated. Appears sedation related as blood pressure is improved off sedation. Lactic acid normal. Bumex 1 mg per tube bid. Echo 03/23/16 - image inadequate Echo 06/18/16ejection fraction 30-35% 01/15/14ardiac catheterization with drug-eluting stent to circumflex Morbid obesity GERD NPO. FEN/RENAL: MICHELLE Chronic kidney disease stage III [place] in place. Monitor intake and output. Monitor electrolytes and replace as indicated. ID: [id number] Leukocytosis Urinalysis with rare bacteria. White blood cell count 17. Blood culture no growth to date Will continue Aztreonam 1 g IV every 8 hours (penicillin allergy rash/fever/ seizure reported). Received vanc in ED. Urine culture later resulted with enterococcus. Will cover with vancomycin for now, trough 10-15. Followup sensitivity and adjust accordingly, linezolid if VRE and off fentanyl or levaquin if not VRE. HEME: No acute hematologic issues ENDO: Hyperosmolar hyperglycemic state Diabetes mellitus Insulin drip Lantus and NovoLog 3 times a day are on hold. PROPH: Heparin subcutaneous for DVT prophylaxis. Protonix 40 g IV daily for stress ulcer prophylaxis and history of GERD ACCESS: Right subclavian introducer and temporary transvenous pacer placed emergently in ED 10/[address] Viera Reviewed face sheet and no family contact available. Will continue to search for contact information as will need consent for PIER MASTER ASSISTANT if recommended. Discussed with Dr. Lo who is aware of overnight issue with leakage around introducer/pacer. States he will maintain current TVP and plan for Dr. Acosta to evaluate for PIER MASTER ASSISTANT tomorrow. Level 3 Makayla Camargo MD Oct 28, 2016 07:27
--- NOTE | 2016-10-28 07:52 | PD.CARD.PN ---
Subjective Subjective Remarks Sedated on mechanical vent and inotrope support. No distress. Back in NSR. Pacer intermittently capturing. Objective Medications Current Medications Medications (Trade) Dose Ordered Sig/Nury Route PRN Reason Start Time Stop Time Status Last Admin Dose Admin Midazolam HCl 100 ml @ 0 mls/hr CONTINUOUS IV 10/27/16 15:00 10/28/16 06:10 Norepinephrine Bitartrate (Levophed-Dextrose Drip) 250 ml @ 0 mls/hr TITRATE IV 10/27/16 15:15 10/27/16 15:31 Terbutaline Sulfate (Brethine Inj) 1 mg UNSCH PRN SQ For Extravasation 10/27/16 15:15 Sodium Chloride (NS Flush) 2 ml BID IV FLUSH 10/27/16 21:00 10/27/16 23:18 Sodium Chloride (NS Flush) 2 ml UNSCH PRN IV FLUSH FLUSH AFTER USING IV ACCESS 10/27/16 16:45 Aspirin (Ecotrin Ec) 325 mg DAILY PO 10/28/16 09:00 Chlorhexidine Gluconate 15 ml 15 ml BID@08,20 MT 10/27/16 20:00 10/27/16 23:19 Propofol 100 ml @ 0 mls/hr TITRATE IV 10/27/16 18:30 10/28/16 06:10 Sodium Chloride (NS 1000 ml Inj) 1,000 ml @ 84 mls/hr [id number] IV 10/27/16 18:24 10/28/16 06:10 Acetaminophen (Tylenol) 650 mg Q6H PRN PO PAIN 1-10 AND/OR FEVER >101F 10/27/16 18:30 Morphine Sulfate (Morphine Inj) 2 mg Q2H PRN IV PAIN SCALE 6 TO 10 10/27/16 18:30 Pantoprazole Sodium (Protonix Inj) 40 mg DAILY IV 10/28/16 09:00 Ondansetron HCl (Zofran Inj) 4 mg Q6H PRN IV NAUSEA OR VOMITING 10/27/16 18:30 Heparin Sodium (Porcine) (Heparin Inj) 5,000 units Q12H SQ 10/27/16 21:00 10/27/16 23:18 Miscellaneous Information 1 [id number] 10/27/16 18:30 Chlorhexidine Gluconate (Chlorhexidine 2% Cloth) 3 pack Taper DAILY@04 TOP 10/28/16 04:00 10/24/17 03:59 10/28/16 04:00 Chlorhexidine Gluconate (Chlorhexidine 2% Cloth) 3 pack UNSCH PRN TOP HYGIENIC CARE 10/27/16 18:30 Senna/Docusate Sodium (Joaquina-Colace) 1 tab BID PO 10/27/16 21:00 10/27/16 23:18 Magnesium Hydroxide (Milk Of Magnesia Liq) 30 ml Q12H PRN PO MILD - MODERATE CONSTIPATION 10/27/16 18:30 Sennosides (Senokot) 17.2 mg Q12H PRN PO MODERATE - SEVERE CONSTIPATION 10/27/16 18:30 Bisacodyl (Dulcolax Supp) 10 mg DAILY PRN RECTAL SEVERE CONSITIPATION 10/27/16 18:30 Lactulose (Lactulose Liq) 30 ml DAILY PRN PO SEVERE CONSITIPATION 10/27/16 18:30 Aspirin (Ecotrin Ec) 81 mg DAILY PO 10/28/16 09:00 Atorvastatin Calcium (Lipitor) 80 mg DAILY PO 10/28/16 09:00 Bumetanide (Bumetanide) 1 mg BID PO 10/27/16 21:00 10/27/16 23:18 Spironolactone 25 mg 25 mg BIDPC PO 10/28/16 09:00 Insulin Human Regular/Sodium Chloride (NovoLIN R (IV INFUSION)/NS Inj) 101 ml @ 2.02 mls/hr TITRATE PRN IV SEE LABEL COMMENTS 10/27/16 18:45 10/28/16 04:58 Dextrose (D50w (Vial) Inj) 50 ml UNSCH PRN IV PUSH HYPOGLYCEMIA- SEE COMMENTS 10/27/16 18:45 Vital Signs / I&O Vital Signs Date Time Temp Pulse Resp B/P Pulse Ox O2 Delivery O2 Flow Rate FiO2 10/28/16 07:10 100 50 10/28/16 06:00 71 10/28/16 04:00 100 50 10/28/16 04:00 68 10/28/16 04:00 99.6 68 16 102/0 100 10/28/16 03:35 100 40 10/28/16 02:00 74 10/28/16 00:02 100 50 10/28/16 00:00 98.8 81 16 107/64 100 10/28/16 00:00 81 10/27/16 22:00 83 10/27/16 21:45 100 60 10/27/16 20:05 97.8 86 17 138/77 100 10/27/16 20:03 100 100 10/27/16 20:00 100 Mechanical Ventilator 100 10/27/16 20:00 86 10/27/16 19:45 100 100 10/27/16 18:54 86 17 110/56 100 Auto-Vent 100 10/27/16 18:50 86 16 111/55 100 Auto-Vent 100 10/27/16 17:51 87 16 96/54 100 Auto-Vent 100 10/27/16 17:40 87 16 98/47 100 Auto-Vent 100 10/27/16 17:10 88 16 164/58 100 Auto-Vent 100 10/27/16 16:41 86 15 165/69 100 Auto-Vent 100 10/27/16 16:06 88 16 146/63 100 Auto-Vent 100 10/27/16 16:03 86 16 170/67 100 Auto-Vent 10/27/16 15:36 80 16 138/70 100 Auto-Vent 100 10/27/16 15:27 80 16 119/59 100 Auto-Vent 100 10/27/16 15:09 76 16 58/33 100 Auto-Vent 100 10/27/16 15:02 76 10/27/16 14:48 100 100 10/27/16 14:46 67 10/27/16 14:44 67 18 175/91 100 Non-Rebreather 15 10/27/16 14:43 100 10/27/16 14:38 67 10/27/16 14:35 69 18 215/95 92 Non-Rebreather 15 10/27/16 14:26 74 19 209/111 68 Non-Rebreather 15 10/27/16 14:16 28 28 100 Non-Rebreather 15 10/27/16 14:10 28 10/27/16 14:03 97.6 24 28 68/42 100 I/O 10/27/16 10/27/16 10/27/16 10/28/16 10/28/16 10/28/16 07:00 15:00 23:00 07:00 15:00 23:00 Intake Total 517 ml 891 ml Output Total 4100 ml 150 ml Balance -3583 ml 741 ml IV Total 487 ml 861 ml Other 30 ml 30 ml Output Urine Total 4000 ml 150 ml Gastric Drainage Total 100 ml # Bowel Movements 0 0 Physical Exam VSS, afebrile. Lung: CTA Heart: RRR, no murmur. Ext: trace pitting edema LR bilat. Laboratory Laboratory Tests Test 10/27/16 10/27/16 10/27/16 10/27/16 15:55 17:10 17:14 18:19 White Blood Count 17.3 TH/MM3 Red Blood Count 4.83 MIL/MM3 Hemoglobin 12.7 GM/DL Hematocrit 42.9 % Mean Corpuscular Volume 88.8 FL Mean Corpuscular Hemoglobin 26.2 PG Mean Corpuscular Hemoglobin 29.5 % Concent Red Cell Distribution Width 15.0 % Platelet Count 230 TH/MM3 Mean Platelet Volume 9.6 FL Neutrophils (%) (Auto) 80.8 % Lymphocytes (%) (Auto) 10.9 % Monocytes (%) (Auto) 6.8 % Eosinophils (%) (Auto) 1.0 % Basophils (%) (Auto) 0.5 % Neutrophils # (Auto) 14.0 TH/MM3 Lymphocytes # (Auto) 1.9 TH/MM3 Monocytes # (Auto) 1.2 TH/MM3 Eosinophils # (Auto) 0.2 TH/MM3 Basophils # (Auto) 0.1 TH/MM3 CBC Comment DIFF FINAL Differential Comment Prothrombin Time 10.1 SEC Prothromb Time International 0.9 RATIO Ratio Activated Partial 21.5 SEC Thromboplast Time Sodium Level 124 MEQ/L Potassium Level 5.0 MEQ/L Chloride Level 88 MEQ/L Carbon Dioxide Level 22.7 MEQ/L Anion Gap 13 MEQ/L Blood Urea Nitrogen 17 MG/DL Creatinine 1.46 MG/DL Estimat Glomerular Filtration 37 ML/MIN Rate Random Glucose 1030 MG/DL Calcium Level 8.3 MG/DL Total Creatine Kinase 158 U/L Creatine Kinase MB 4.2 NG/ML Troponin I 0.03 NG/ML Urine Color LIGHT-YELLOW Urine Turbidity CLEAR Urine pH 6.0 Urine Specific [place] 1.021 Urine Protein TRACE mg/dL Urine Glucose (UA) 1000 mg/dL Urine Ketones NEG mg/dL Urine Occult Blood TRACE Urine Nitrite NEG Urine Bilirubin NEG Urine Urobilinogen LESS THAN 2.0 MG/DL Urine Leukocyte Esterase NEG Urine WBC 1 /hpf Urine Bacteria RARE /hpf Microscopic Urinalysis Comment CATH-CULTURE IND Blood Gas Puncture Site RT BRACHIAL Blood Gas Patient Temperature 98.6 Blood Gas HCO3 27 mmol/L Blood Gas Base Excess 2.3 mmol/L Blood Gas Oxygen Saturation 98 % Arterial Blood pH 7.35 Arterial Blood Partial 51 mmHg Pressure CO2 Arterial Blood Partial 279 mmHG Pressure O2 Arterial Blood Oxygen Content 18.9 Vol % Arterial Blood 1.4 % Carboxyhemoglobin Arterial Blood Methemoglobin 1.0 % Blood Gas Hemoglobin 13.4 G/DL Oxygen Delivery Device VENTILATOR Blood Gas Ventilator Setting 500/16/+5 Blood Gas Inspired Oxygen 100 % Lactic Acid Level 3.2 mmol/L Test 10/27/16 10/27/16 10/27/16 10/27/16 20:00 21:20 21:40 23:35 Nasal Screen MRSA (PCR) MRSA NOT DETECTED Random Glucose 723 MG/DL 600 MG/DL Total Creatine Kinase 154 U/L Creatine Kinase MB 4.0 NG/ML Troponin I 0.12 NG/ML Lactic Acid Level 1.4 mmol/L Test 10/27/16 10/28/16 10/28/16 23:50 02:55 04:56 Blood Gas Puncture Site CENTRAL LINE CENTRAL LINE Blood Gas Patient Temperature 98.6 98.6 Venous Blood pH 7.34 7.35 Venous Blood Partial Pressure 59 mmHg 60 mmHg CO2 Venous Blood Partial Pressure 55 mmHg 40 mmHg O2 Venous Blood HCO3 31 mmol/L 32 mmol/L Venous Blood Oxygen Saturation 84 % 70 % Venous Blood Oxygen Content 15.8 Vol % 12.7 Vol % Venous Blood Base Excess 5.1 mmol/L 6.4 mmol/L Oxygen Delivery Device VENTILATOR VENTILATOR Blood Gas Ventilator Setting AC16/550/+5 PRVC16/550/0.9/+5 Blood Gas Inspired Oxygen 100 % 50 % Sodium Level 142 MEQ/L Potassium Level 3.6 MEQ/L Chloride Level 100 MEQ/L Carbon Dioxide Level 31.5 MEQ/L Anion Gap 11 MEQ/L Blood Urea Nitrogen 18 MG/DL Creatinine 1.52 MG/DL Estimat Glomerular Filtration 35 ML/MIN Rate Random Glucose 362 MG/DL Serum Osmolality 320 MOSM/KG Calcium Level 8.9 MG/DL Phosphorus Level 3.0 MG/DL Magnesium Level 2.7 MG/DL Total Creatine Kinase 133 U/L Creatine Kinase MB 2.6 NG/ML Troponin I 0.11 NG/ML Thyroid Stimulating Hormone 0.552 uIU/ML 3rd Gen Imaging Last 48 hours Impressions Chest X-Ray 10/27/16 0000 Signed Impressions: Service Date/Time: Thursday, October 27, 2016 21:41 - CONCLUSION: Improvement in aeration of the lungs. Jose G Harrison MD Chest X-Ray 10/27/16 0000 Signed Impressions: Service Date/Time: Thursday, October 27, 2016 15:58 - CONCLUSION: Slight CHF. Jose G Harrison MD Assessment and Plan Problem List: (1) AV block, 3rd degree Assessment and Plan: Transvenous PM in place. (2) CAD (coronary artery disease) (3) COPD (chronic obstructive pulmonary disease) (4) Hypertension (5) H/O heart artery stent (6) Hypotension (7) Acute on chronic systolic and diastolic heart failure, NYHA class 2 (8) Diabetes mellitus type 2 in obese (9) LBBB (left bundle branch block) Assessment and Plan Transvenous PM setting readjusted and working appropriately now stadby at 50 bpm. Continue IV diuresis, vent and inotrope support. Holding beta blockers and joe inhibitors due to hypotension ans bradyarrhythmias for now. 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 I will ask EP Dr. Quintana to evaluate today for consideration of BiV ICD implant. Prognosis guarded. Dr. Acosta will return on Saturday. Case discussed with Dr. Camargo and cruise staff member. Code Status Full Sean Steel MD Oct 28, 2016 07:51
[2016-10-28] MEDS ORDERED: AZTREONAM INJ 1,000 MG in SODIUM CHLORIDE 0.9% INJ 100 ML IV SCH (09:00)
[2016-10-28] MEDS ORDERED: SPIRONOLACTONE 25 MG TAB PO SCH (09:00)
[2016-10-28] MEDS ORDERED: ASPIRIN EC 81 MG TABEC PO SCH (09:00)
[2016-10-28 11:34] LABS: AUTOMATED NEUTROPHIL # 11.7 TH/MM3 (1.8-7.7); BASOPHIL # 0.1 TH/MM3 (0-0.2); BASOPHIL % 0.5 % (0.0-2.0); EOSINOPHIL # 0.1 TH/MM3 (0-0.4); EOSINOPHIL % 0.9 % (0.0-4.0); HEMATOCRIT 37.4 % (35.0-46.0); HEMO FLAGS DIFF FINAL; LYMPHOCYTE # 2.1 TH/MM3 (1.0-4.8); MEAN CELL VOLUME 82.2 FL (80.0-100.0); MEAN CORPUSCULAR HEMOGLOBIN 26.7 PG (27.0-34.0); MEAN CORPUSCULAR HGB CONC 32.4 % (32.0-36.0); MONO % 7.5 % (0.0-8.0); NEUT % 77.1 % (16.0-70.0); PLATELET COUNT 245 TH/MM3 (150-450); RED BLOOD COUNT 4.55 MIL/MM3 (4.00-5.30); RED CELL DISTRIBUTION WIDTH 13.8 % (11.6-17.2); WHITE BLOOD COUNT 15.2 TH/MM3 (4.0-11.0)
[2016-10-28] MEDS: NOREPINEPHRINE-DEXTROSE DRIP 250 ML IV SCH (13:34)
[2016-10-28] MEDS: AZTREONAM INJ 1,000 MG in SODIUM CHLORIDE 0.9% INJ 100 ML IV SCH ×2 (13:34→21:07)
[2016-10-28] MEDS ORDERED: Vancomycin Consult Pharmacy 1 EA OTHER SCH (14:30)
--- NOTE | 2016-10-28 15:49 | EKG ---
Date Performed: 10/27/2016 Time Performed: 14:05:16 PTAGE: 61 years EKG: Sinus rhythm with a rate of 58 with complete heart block with ventricular escape rhythm with a rate of 24 Compare d to previous tracing, this complete heart block with ventricular escape rhythm is new. Clinical elisabeth elation and follow up tracing strongly recommended. ABNORMAL ECG PREVIOUS TRACING : 09/20/2016 06.11 DOCTOR: Tom Maloney Interpretating Date/Time 10/28/2016 15:48:18
--- NOTE | 2016-10-28 15:51 | EKG ---
Date Performed: 10/27/2016 Time Performed: 14:26:58 PTAGE: 61 years EKG: Ventricular paced rhythm with 100% capture at a rate of 65 There appears to be P-waves benny korina through the rhythm strip with a rate of around 95 with no capture. BORDERLINE RIGHT AXIS DEVIATI ON INTRAVENTRICULAR CONDUCTION DELAY ABNORMAL ECG PREVIOUS TRACING : 10/27/2016 14.05 DOCTOR: Tom Maloney Interpretating Date/Time 10/28/2016 15:50:46
[2016-10-28] MEDS: fentaNYL DRIP 250 ML IV SCH (18:49)
[2016-10-28] MEDS: SODIUM CHLORIDE 0.9% FLUSH 10 ML FLUSH IV FLUSH SCH (20:11)
[2016-10-28] MEDS: CHLORHEXIDINE 0.12% (ORAL KIT) 15 ML CUP MT SCH (20:12)
[2016-10-28] MEDS: DOCUSATE SODIUM 50 MG/SENNA 8.6 MG TAB PO SCH (21:05)
[2016-10-28] MEDS: HEPARIN SODIUM - SQ 10,000 UNITS/ML VIAL SQ SCH (21:06)
[2016-10-28] MEDS: BUMETANIDE 1 MG TAB PO SCH (21:06)
[2016-10-29] VITALS (40 sets, daily range): BP systolic 89–142; BP diastolic 45–64; PULSE 84–119; RESP 2–23; TEMP 98.3–100.2; O2SAT 95–100
[2016-10-29] MEDS ORDERED: VANCOMYCIN INJ 1,500 MG in SODIUM CHLORID 0.9% 500 ML INJ 500 ML IV SCH (01:00)
[2016-10-29] MEDS: CHLORHEXIDINE GLUCONATE 2 % 1 PACK (2 CLOTHS) TOP SCH (02:57)
[2016-10-29 04:09] LABS: AUTOMATED NEUTROPHIL # 13.7 TH/MM3 (1.8-7.7); BASOPHIL # 0.1 TH/MM3 (0-0.2); BASOPHIL % 0.3 % (0.0-2.0); EOSINOPHIL # 0.2 TH/MM3 (0-0.4); EOSINOPHIL % 0.9 % (0.0-4.0); HEMATOCRIT 37.8 % (35.0-46.0); HEMO FLAGS DIFF FINAL; LYMPH % 13.7 % (9.0-44.0); LYMPHOCYTE # 2.4 TH/MM3 (1.0-4.8); MEAN CELL VOLUME 82.6 FL (80.0-100.0); MEAN CORPUSCULAR HEMOGLOBIN 27.1 PG (27.0-34.0); MEAN CORPUSCULAR HGB CONC 32.8 % (32.0-36.0); MONO % 7.3 % (0.0-8.0); NEUT % 77.8 % (16.0-70.0); PLATELET COUNT 182 TH/MM3 (150-450); RED BLOOD COUNT 4.57 MIL/MM3 (4.00-5.30); RED CELL DISTRIBUTION WIDTH 14.4 % (11.6-17.2); WHITE BLOOD COUNT 17.6 TH/MM3 (4.0-11.0)
[2016-10-29 04:38] LABS: BICARBONATE 31.4 MEQ/L (21.0-32.0); POTASSIUM 3.8 MEQ/L (3.5-5.1)
[2016-10-29] MEDS: AZTREONAM INJ 1,000 MG in SODIUM CHLORIDE 0.9% INJ 100 ML IV SCH ×3 (05:17→21:19)
[2016-10-29] MEDS: SODIUM CHLOR 0.9% 1000 ML INJ 1,000 ML IV SCH (06:57)
[2016-10-29] MEDS: DOCUSATE SODIUM 50 MG/SENNA 8.6 MG TAB PO SCH ×2 (08:31→21:19)
[2016-10-29] MEDS: BUMETANIDE 1 MG TAB PO SCH ×2 (08:31→21:19)
[2016-10-29] MEDS: ASPIRIN EC 325 MG TABEC PO SCH ×2 (08:31→09:00)
[2016-10-29] MEDS: HEPARIN SODIUM - SQ 10,000 UNITS/ML VIAL SQ SCH (08:31)
[2016-10-29] MEDS: CHLORHEXIDINE 0.12% (ORAL KIT) 15 ML CUP MT SCH ×2 (08:32→20:28)
[2016-10-29] MEDS: PANTOPRAZOLE SODIUM 40 MG VIAL IV SCH ×2 (08:32→09:00)
[2016-10-29] MEDS: SODIUM CHLORIDE 0.9% FLUSH 10 ML FLUSH IV FLUSH SCH ×3 (08:32→20:29)
[2016-10-29] MEDS: ATORVASTATIN 80 MG TAB PO SCH ×2 (08:34→09:00)
[2016-10-29] MEDS ORDERED: IODIXANOL 320 MG/ML 50 ML VIAL (for EPS) IV ONE (14:00)
[2016-10-29] MEDS: fentaNYL DRIP 250 ML IV SCH (14:07)
[2016-10-29] MEDS ORDERED: LIDOCAINE HCL 2% 50 ML VIAL ONE (14:46)
[2016-10-29] MEDS ORDERED: VANCOMYCIN 500 MG VIAL ONE (14:46)
[2016-10-29] MEDS ORDERED: VANCOMYCIN HCL 1000 MG VIAL ONE (14:46)
[2016-10-29] MEDS ORDERED: LEVOFLOXACIN 500 MG PREMIX INJ 100 ML IV ONE (14:46)
--- NOTE | 2016-10-29 14:58 | MB ---
cc: LACY STEEL M.D., JAMES H. DATE OF 1955 DATE OF CONSULTATION October 29, 2016 DICTATING PHYSICIAN Gita Quintana MD REFERRING PHYSICIAN Dr. Steel. Dr. Camargo. REASON FOR CONSULTATION Management of complete heart block with ischemic cardiomyopathy. HISTORY OF PRESENT ILLNESS The patient is currently intubated. I am getting the majority of the information from the chart and the nurses and Dr. Camargo. Ms. Clayton is a 61-year-old lady well-known to Dr. Acosta, who presented to [facility] with generalized weakness. The patient was found to have complete heart block with heart rate in the 20s and she had emergency temporary pacing catheter placed through the right subclavian with intermittent capture. She has been admitted to the Intensive Care Unit and has been tried initially at epi drip and now has been tapered off. Of note, she does have ischemic cardiomyopathy with EF around 30-35%. She does have a chronic left bundle-branch block at baseline with QRS of 161 milliseconds. Despite optimal medical therapy, she does have chronic systolic congestive heart failure, NYHA Class III. So far she has been intubated. She has multiple central lines with right subclavian line with temporary pacing catheter. Again currently the patient is intubated. Unfortunately the patient does not have any family members; she has been out of contact for years. She only has a roommate. PAST MEDICAL HISTORY 1. As above. 2. Also has chronic renal insufficiency. 3. Hypercholesteremia. 4. Diabetes. 5. Morbid obesity. 6. PAD. PAST SURGICAL HISTORY 1. The surgery as above. 2. Also had a cholecystectomy. 3. PCI of the left femoral artery. 4. She did have cardiac catheterization in the past. ALLERGIES CODEINE. PENICILLIN. HYDROMORPHONE. FAMILY HISTORY I cannot get a detailed family history from the patient. SOCIAL HISTORY She has smoked in the past. REVIEW OF SYSTEMS I cannot get a detailed review of systems from the patient. PHYSICAL EXAMINATION GENERAL: The patient is currently intubated. VITAL SIGNS: Blood pressure is better; it is 90/62 with a pulse in the 90s, currently not paced at this moment. The patient does have a temporary pacing catheter, requires intermittent pacing. Currently on a vent. HEENT: He is intubated. PERRLA. ENDOCRINE: There is no thyroid enlargement. LYMPHATICS: No lymphadenopathy. RESPIRATORY: Has decreased breath sounds bilaterally on vent. CARDIOVASCULAR: Decreased S1 and S2. Right subclavian access is noted with left IJ access. GI: Active bowel sounds all four quadrants. : Deferred. MS: All range of motion intact. The patient does have a small ulceration over the lower extremities with trace pitting edema. PSYCH: Neurologic status cannot be assessed due to intubation status. MS scale range of motion intact. CARDIAC STUDIES So far the patient had a EKG which showed complete heart block with heart rate in the 20s with baseline left bundle-branch block pattern. ECHOCARDIOGRAM In the past in September showed EF of 30-35%. ASSESSMENT 1. Ischemic cardiomyopathy with EF only 30-35%. 2. Symptomatic complete heart block with heart rate in the 20s. 3. Chronic systolic congestive heart failure NYHA Class III-IV. 4. Left bundle-branch block QRS of more than 160 milliseconds. 5. PAD. 6. Chronic renal insufficiency. 7. Hypercholesteremia. 8. Diabetes. 9. Morbid obesity. PLAN The patient will need pacing support at this moment. So far we could not get in touch with any family member she has contact with. She has not had any family contact for years. I cannot consent from the roommate at this moment. I do think it is medically necessary/emergent to have pacemaker done for this patient. I do think BiV-ICD would be the best option given ischemic cardiomyopathy with EF of 30-35% along with complete heart block, chronic systolic CHF. I did discuss the case with Dr. Camargo and the nurse. So far we all agree that the BiV-ICD is medically necessary and is an emergent procedure for the patient. We will proceed with the procedure. Afterwards we will remove the temporary pacing catheter. We tried to remove the left side IJ prior to the procedure to minimize any chance of infection. Hopefully we can extubate the patient soon. I will continue current baby aspirin. Continue vancomycin. Continue Bumex. Hold on heparin drip. I would like to thank Dr. Steel and Dr. Camargo for letting me participate in the care of Ms. Clayton. MD PIPO Hinojosa/KIMMY /1:51 PM /8:26 AM
--- NOTE | 2016-10-29 17:11 | CATHPROC ---
[facility] HIS Report Study Information Study Number Scheduled Start Study Start [id number] 10/29/2016 Oct 29 2016 1:57PM Referring Institution Admit Source Facility Department 1 Other [facility] Worker Physician and Clinical Staff Initial Pateince Adan Mica Paster Laila Pineda,CONTACT LENS FLASHING PUNCHER Other Anesthesia, SOLUTION SALES SENIOR EXECUTIVE Other Eliceo, Yajaira,SUPPLY CATALOGUER TECH2 Recorder Pallavi Adams,RN Guzmanub Jacqueline Colin,RT(R) TECH2 Procedures Performed Procedure Location (Site) Vessel Name Lead Insertion Venogram Coronary Sinus Other Wire insertion Subclav. Vein (Lft Subclavian Vein Equipment Time Oil Burner Servicer And Installer Description Size Mfg Part Number Used/Scraped [id number] 15:50 [employer] WIRE, ASAHI PROWATER 180CM 180CM Used *[id number] WIRE, BALANCE MIDDLEWEIGHT [id number] 16:00 [employer] 190CM Used 190CM (ALFRED) *[id number] CATHETER, FR5 SWAN JANNETTE 16:09 BLANCAS HURT FR 5 [id number] *[id number] Used MONITOR [id number] *[id number] DERMABOND, ADHESIVE SKIN [id number] 14:03 CORDIS/PACER * Used GLUE MINI *[id number] 14:03 MEDLINE PACER ADHESIVE, MASTISOL 2/3CC 2/3CC 0523-48 Used 14:03 MEDLINE PACER LOVELL, LIMB * 2530 *[id number] Used [id number] 14:03 MEDLINE PACER PACK, PACER CUSTOM * Used *[id number] 14:03 MEDLINE PACER PEN, SKIN DUAL W/ RULER * Used *[id number] 15:02 [employer] SAFE SHEATH, FR7, 13CM FR 7 [id number] Used 15:03 [employer] SAFE SHEATH, FR9, 13CM FR 9 [id number] Used 15:23 [employer] SAFE SHEATH, FR9, 13CM FR 9 [id number] Used 15:29 [employer] PACER SHEATH, FR9 ISABELL STD FR9 [id number] Used 15:11 Needle Sponge Count 2 22 Used 15:26 Needle Sponge Count 2 22 Used 15:26 Needle Sponge Count 30 1 Used 15:11 Needle Sponge Count 30 1 Used 15:25 Needle Sponge Count 6 6 Used 15:11 Needle Sponge Count 6 6 Used 16:43 Needle Sponge Count 7 7 Used 15:42 NYCOMED OMNIPAQUE, 300 MG, 50ML 50ML [id number] Used [id number] *[id number] SUTURE, 0 ETHIBOND [CT1] (CX21D), 8pk SUTURE, 2-0 VICRYL [CT1] ([id number]) SUTURE, 4-0 MONOCRYL [PS2] (Y496G) [id number] 14:03 [employer] [facility],WARM AIR CCL * Used *[id number] [facility] PAD, ELECTROSURGICAL 14:03 * [id number] *[id number] Used SURGICAL GROUNDING ORANGE 15:51 VITATRON [employer] LEAD, ATTAIN PERFORMA, 88CM 88CM 4298-88CM Used LEAD, CAPSURE FIX NOVUS, 4076-52CM 15:34 [employer] 52CM Used 52CM *[id number] LEAD, SPRINT QUATTRO SECURE [id number] 15:27 [employer] 62CM Used S 62CM *[id number] PACEMAKER, AMPLIA MRI QUILLER MACHINE FIXER-D 16:29 [employer] DDEDDDDR [id number] Used SURESCAN [id number] 14:03 Edgeware PABLO. ELECTRODE, PRO-PADZ BIPHASIC * Used *08110 Equipment Model, Serial, Lot Number and Expiration Data Description Model Number Serial Number Lot Number Expiration Date LEAD, ATTAIN PERFORMA, 88CM 4298-88 [id number] 05-15-2018 LEAD, CAPSURE FIX NOVUS, 52CM 4076-52 [id number] 08-07-2016 LEAD, SPRINT QUATTRO SECURE S 6935m-62 [id number] 07-24-2018 62CM PACEMAKER, AMPLIA MRI QUILLER MACHINE FIXER-D [id number] 06-22-2017 SURESCAN History: Allergies Allergy Reaction *MDRO Multi-Drug Resistant Cleared 04/25/16 Organism codeine rash hydromorphone Nausea/Vomiting Penicillin RASH,FEVER, SEIZURE MORPHIN Hypotension penicillin G RASH,FEVER, SEIZURE Labs RBC (MIL/MM3) WBC (l/cumm) Platelets (thousands) 4.00-5.90 4.00-11.00 150.00-450.00 4.5 17.6 182 Glucose (mg/dl) BUN (mg/dl) Creatinine (mg/dl) BUN:Creatinine (1:x) 74.00-106.00 7.00-18.00 0.50-1.30 10.00-20.00 158 22 1.1 20 Na (meq/l) K (meq/l) 136.00-145.00 3.50-5.10 144 3.8 INR (PTT:PT) 0.90-1.10 0.9 Medication Medication Total Dose (Bolus/Oral) Medication Total Dosage/Unit 2% XYLOCAINE 50 mL FENTANYL 200 mcg/hr Medications (Bolus/Oral) Medication Time Given Dosage/Unit Administered By Reason FENTANYL 10/29/2016 2:35:10 PM 200 mcg/hr Anesthesia, SOLUTION SALES SENIOR EXECUTIVE Patient arrived on 200 mcg/hr FENTANYL given by Anesthesia, SOLUTION SALES SENIOR EXECUTIVE via Peripheral IV. Pump/Drip Flow = 20 ml/hr using [Solution Name] with a concentration of 2500 mcg in 250 ml. arrived from [facility] on drip infusing as such 2% XYLOCAINE 10/29/2016 3:13:00 PM 50 mL Patience Quintana 50 mL 2% XYLOCAINE given in lab by Patience Quintana in Left upper chest via Subcutaneous. Medication (Drip) Medication Time Given Dosage/Unit Concentration/Unit Diluent (ml) Solution LEVAQUIN 10/29/2016 2:55:43 PM 100 mL/hr 500 100 NaCl .9 Patient arrived on 100 mL/hr LEVAQUIN given by Anesthesia, SOLUTION SALES SENIOR EXECUTIVE via Peripheral IV. Pump/Drip Flow = 0 ml/hr using NaCl .9 with a concentration of 500 in 100 ml. Ordered by Patience Quintana. Reason: As per physicians verbal order. VANCOMYCIN DRIP 10/29/2016 2:55:42 PM 1 g Patient arrived on 1 g VANCOMYCIN DRIP given by Anesthesia, SOLUTION SALES SENIOR EXECUTIVE via Peripheral IV. Ordered by Patience Quintana. Reason: As per physicians verbal order. Initial Case Assessment Cardiovascular HR Rhythm NIBP Chest Pain 96 sr 121/54 0 Edema Present Skin color Skin None Normal Warm Dry Circulatory - Right Pulses Dorsalis Pedis Radial 1 1 Scale (0,1,2,3,4,d) Circulatory - Left Pulses Dorsalis Pedis Radial 1 1 Scale (0,1,2,3,4,d) Circulatory - Lower Extremities Color Lower Right Color Lower Left Normal Normal Neurological State Restless Moves all extremities Comment: sedated w fentanyl from [facility] Respiration - General Respiration Rate SpO2 (%) O2 (lpm) (B/min) 16 100 50 Respiration - Ventilator Type Intubation Type ET(oral) Respiration - Ventilator Settings FIO2 (%) 50 Final Case Assessment Cardiovascular HR Rhythm NIBP Chest Pain 104 st 89/48 0 Edema Present Skin color Skin None Normal Warm Dry Circulatory - Right Pulses Radial 1 Scale (0,1,2,3,4,d) Circulatory - Left Pulses Radial 1 Scale (0,1,2,3,4,d) Circulatory - Lower Extremities Color Lower Right Color Lower Left Normal Normal Neurological State Unresponsive Moves all extremities Comment: sedated w fentanyl et anesthesia Respiration - General Respiration Rate SpO2 (%) (B/min) 16 96 Respiration - Ventilator Type Intubation Type ET(oral) Chronological Log Time Study Chronological Log 14:35:00 Patient arrived via Bed. 14:35:00 Anesthesia at bedside. Assumes care of patient. 14:35:02 Consents wer obtained as medically necessary per Dr Quintana. Patient arrived on 200 mcg/hr FENTANYL given by Anesthesia, SOLUTION SALES SENIOR EXECUTIVE via Peripheral IV. Pump/Drip F low = 20 ml/hr 14:35:10 using [Solution Name] with a concentration of 2500 mcg in 250 ml. arrived from [facility] on drip infu sing as such 14:35:54 Regular insulin gtt infusing at 4units/hr from [facility] to piv 14:35:55 Patient Name, D.O.B, / Armband Verified By R.N. 14:35:59 Consent signed by the physician and the patient and verified by the [facility] Worker staff. 14:36:10 Pre-op and post- op instructions given; patient acknowledges understanding of instructions. 14:36:[address] et pacing as from [facility]. 14:37:00 History and physical on the chart or being dictated. 14:37:30 Patient has been NPO for More than 6Hrs. 14:37:33 Skin Breakdown- left lower leg with open pink, dry wound. 14:40:02 A # 20 IV was noted in the Forearm (left). Grade = 0 14:40:06 A # 20 IV was noted in the Forearm (right). Grade = 0 0.9ns kvo 14:40:36 MD arrived. 14:40:37 2% CHLORHEXIDINE GLUCONATE WASH AND NASAL SWIPE DONE PRIOR TO PROCEDURE. 14:41:47 Bovie ground pad applied to:right thigh 14:42:57 Pedro Prominences Protected 14:44:51 Disposable Defibrillator Pads Placed On Patient. Verbal Stimulation=0 Physical Stimulation=2 Airway=2 Respiration=1 TOTAL=5. (0=absent, 1=limite d, 2=present) pt 14:45:06 intubated from [facility] with fentnyl infusing Assessment: Initial Case, HR=96 BPM, Rhythm=sr, UEXT=107/54 mmhg, Chest Pain=0, Edema=None, Col or=Normal, Skin = Warm, Dry Right Pulses: Kurt Ped=1, Radial=1 Left Pulses: Kurt Ped=1, Radial=1 14:45:34 Lower Right Extremities: Color=Normal Lower Left Extremities: Color=Normal Neurological: State=Restless, KELLY, Comment=sedated w fentanyl from [facility] Respiration: Resp=16 B/min, IfC1=707 %, O2=50 lpm, Type=ET(Oral), FIO2=50 % 14:47:21 Table restraints applied according to hospital policy 14:47:32 Left Upper Chest Prepped Times Two. Patient arrived on 1 g VANCOMYCIN DRIP given by Anesthesia, SOLUTION SALES SENIOR EXECUTIVE via Peripheral IV. Ordered by Patience Quintana. 14:55:42 Reason: As per physicians verbal order. Patient arrived on 100 mL/hr LEVAQUIN given by Anesthesia, SOLUTION SALES SENIOR EXECUTIVE via Peripheral IV. Pump/Drip Fl ow = 0 ml/hr using 14:55:43 NaCl .9 with a concentration of 500 in 100 ml. Ordered by Patience Quintana. Reason: As per physici ans verbal order. First Sponge And Instrument Count Done by Jacqueline Colin, RT(R) TECH2. 15:05:07 Hypo's: 6, Sponges: 30, Bovie/scratch: 2 Sutures: 9, Blades: 3, Instruments: 26, Syveck Patches: 0 15:09:59 2% CHLORHEXIDINE GLUCONATE WASH AND NASAL SWIPE DONE PRIOR TO PROCEDURE. First Sponge And Instrument Count Done by Yajaira Fenton, SUPPLY CATALOGUER TECH2. 15:10:05 Hypo's: 6, Sponges: 30, Bovie/scratch: 2 Sutures: 9, Blades: 3, Instruments: 26, Syveck Patches: ~SYVECK PATCH~ 15:11:15 Reference ECG taken Time Out. Correct patient, procedure, procedure equipment, site and side verified with physicia n present. Time 15:12:50 concurred by MD, individual staff and SOLUTION SALES SENIOR EXECUTIVE. Time Out #2 - Consents verified, patient in correct position, all results are labled and displa yed, safety precautions 15:12:53 taken, antibiotics administered. Time out concurred by MD, individual staff and SOLUTION SALES SENIOR EXECUTIVE in procedu re 15:12:55 Case Start 15:13:00 50 mL 2% XYLOCAINE given in lab by Patience Quintana in Left upper chest via Subcutaneous. 15:14:36 BLOOD GLUCOSE 220 15:15:39 Vascular access was obtained in the Subclav. Vein (Lft. 15:15:57 Vascular access was obtained in the Subclav. Vein (Lft. 15:16:40 BGM 220. REGULAR INSULIN DRIP INCREASED TO 6 UNITS/HR 15:18:34 Wire inserted 15:18:34 Wire inserted 15:18:41 A SAFE SHEATH, FR7, 13CM FR 7 was advanced into the Subclav. Vein (Lft using the Modified S eldinger technique. 15:18:48 A SAFE SHEATH, FR9, 13CM FR 9 was advanced into the Subclav. Vein (Lft using the Modified S eldinger technique. 15:18:55 Surgical Incision Made. 15:23:07 Vascular access was obtained in the Subclav. Vein (Lft. 15:23:17 Wire inserted 15:23:20 A SAFE SHEATH, FR9, 13CM FR 9 was advanced into the Subclav. Vein (Lft using the Modified S eldinger technique. 15:26:27 A LEAD, SPRINT QUATTRO SECURE S 62CM 62CM was inserted and positioned in the RV. 15:27:00 Lead placement verified under fluoroscopy 15:28:00 The RV lead impedance and threshold being tested. 15:29:00 The RV lead was sutured to the fascia. 15:32:42 A SAFE SHEATH, FR7, 13CM FR 7 was advanced into the Subclav. Vein (Lft using the Modified S eldinger technique. 15:32:54 A LEAD, CAPSURE FIX NOVUS, 52CM 52CM was inserted and positioned in the RA. 15:34:54 Lead placement verified under fluoroscopy 15:34:57 The Atrial lead impedance and threshold is being tested. 15:36:06 The Atrial lead was sutured to the fascia. 15:41:18 A SHEATH, FR9 ISABELL STD FR9 was advanced into the Subclav. Vein (Lft using the Modified [place] technique. cs 15:41:41 The Coronary Sinus was manually injected with 10 cc's of contrast. OMNIPAQUE, 300 MG, 50ML 50ML used. A MPA-2 INFINITI CATHETER FR 6 was advanced over a wire. OMNIPAQUE, 300 MG, 50ML 50ML was used for 15:47:00 injections. cs 15:47:05 The Coronary Sinus was manually injected with 10 cc's of contrast. OMNIPAQUE, 300 MG, 50ML 50ML used. 15:48:53 A WIRE, KeyOwner PROWATER 180CM 180CM was inserted via Subclav. Vein (Lft. cs 15:50:47 A LEAD, ATTAIN PERFORMA, 88CM 88CM was inserted and positioned in the CS/LV. 15:59:31 The previous wire was exchanged for a WIRE, Langtice MIDDLEWEIGHT 190CM (ALFRED) 190CM. cs 16:00:00 See EMR for bgms. 16:07:39 A CATHETER, FR5 SWAN JANNETTE MONITOR FR 5 was inserted via Subclav. Vein (Lft 16:10:02 The Coronary Sinus was manually injected with 10 cc's of contrast. OMNIPAQUE, 300 MG, 50ML 50ML used. 16:14:26 Potter Jannette Catheter Removed 16:17:51 isabell sheath removed 16:18:54 Lead placement verified under fluoroscopy 16:18:56 The CS/LV lead impedance and threshold is being tested. 16:19:00 The CS/LV lead was sutured to the fascia. 16:28:27 A PACEMAKER, AMPLIA MRI QUILLER MACHINE FIXER-D SURESCAN DDEDDDDR was connected and placed in the pocket. 16:32:15 Pocket flushed with antibiotic solution Second Sponge And Instrument Count Done. 16:32:54 Hypo's: 6, Sponges: 30, Bovie/scratch: 2 Sutures: 13, Blades: 3, Instruments: ~INSTRU~, Syveck Patches: ~SYVECK PATCH~ 16:41:19 The pocket was closed. 16:48:59 Temp pacer removed by Dr Quintana. 16:54:35 Implant Procedure was performed. 16:54:45 A Bivent ICD Implant . (Dual) 16:57:02 IMCU called. Spoke to Ricardo 16:57:13 Bedside Report will be given. 16:57:31 Steri-strips and a sterile dressing applied to site. Final Sponge And Instrument Count Done. 16:59:30 Hypo's: 7, Sponges: 30, Bovie/scratch: 2 Sutures: 18, Blades: 3, Instruments: ~INSTRU~, Syveck Patches: ~SYVECK PATCH~ 9 sutures and 1 hypo added 17:01:27 No case complications noted. 17:01:40 BGM 230. Insulin gtt remaines at 6 cc/hr. 17:02:51 Cine recording checked. 17:02:56 Implantable Device card placed in patient's chart. 17:03:09 Defibrillator and ground pads removed. Skin intact. Assessment: Final Case, MC=412 BPM, Rhythm=st, NIBP=89/48 mmhg, Chest Pain=0, Edema=None, [place] r=Normal, Skin = Warm, Dry Right Pulses: Radial=1 Left Pulses: Radial=1 17:05:57 Lower Right Extremities: Color=Normal Lower Left Extremities: Color=Normal Neurological: State=Unresponsive, KELLY, Comment=sedated w fentanyl et anesthesia Respiration: Resp=16 B/min, SpO2=96 %, Type=ET(Oral) 17:08:22 Case End 17:09:54 Defibrillator and ground pads removed. Skin intact. 17:10:09 A sling was placed on the affected arm. 17:15:56 Patient moved to stretcher End Study - Contrast Media Used In Study Contrast Total Opened (mL) Total Used (mL) Total Wasted (mL) Unspecified 150 100 50 End Study - Maximum Contrast Load Max Contrast Load (mL) 540.9 End Study - Radiation Exposure Fluoro Time (minutes) 19.5 End Study - Patient Disposition Complications Transferred To Interventional Outcome No Critical Care Bed successful
[2016-10-29] MEDS ORDERED: SODIUM CHLORIDE 0.9% FLUSH 10 ML FLUSH IV FLUSH PRN (17:15)
[2016-10-29] MEDS ORDERED: BACITRACIN OINT 0.9 GM PKT TOP PRN (17:15)
[2016-10-29] MEDS ORDERED: VANCOMYCIN INJ 1,000 MG in SODIUM CHLOR 0.9% 250 ML INJ 250 ML IV ONE (17:15)
--- NOTE | 2016-10-29 17:41 | RADRPT ---
EXAM DATE/TIME: 10/29/2016 17:29 [place] COMPARISON: CHEST SINGLE AP, October 27, 2016, 21:41. INDICATIONS : Status post pacemaker placement. MEDICAL HISTORY : Cardiovascular disease. SURGICAL HISTORY : Stents. ENCOUNTER: Subsequent ACUITY: 3 days PAIN SCORE: Non-responsive. LOCATION: Bilateral chest FINDINGS: A single view of the chest demonstrates cardiomegaly with diminished lung glands and vascular crowdin g. Endotracheal tube and nasogastric tube unchanged. Left-sided pacemaker seen with limited visualiza tion of all the leads. Osseous structures are intact. CONCLUSION: 1. Adequate placement of pacemaker. There is limited visualization of all leads. 2. No pneumothorax. Jc Strauss MD on October 29, 2016 at 17:37 Board Certified Radiologist. This report was verified electronically.
[2016-10-29] MEDS: INSULIN REGULAR 100 UNITS/100 ML NS ALGORITHM 3 IV PRN ×2 (18:06)
--- NOTE | 2016-10-29 19:29 | HHI.CCPN ---
Subjective Remarks/Hospital Course 61 y/o woman presented with CHB, hypotension, weakness. Required intubation and mechanical ventilation. Temporary pacer wire placed by Dr. Ingram. On levophed for BP support. She has poorly controlled DM and glucose now > 1000. Acid/base balance acceptable. I will start an insulin gtt and admit her to CVICU. ECHO 09/24: Systolic failure, EF 30%, diastolic dysfunction Grade I 10/28 Now in sinus rhythm with intrinsic rate in the 70s. Remains on Levophed due to hypotension. On mechanical ventilation. Apparently patient was on Versed drip up to 23 mg/h last night upon arrival from ED. Performing sedation vacation. Subjective: 10/29 In sinus rhythm 90s. Remains intubated but follows commands. Off levophed. Plan for biventricular pacer/ICD today. Objective Vital Signs Date Time Temp Pulse Resp B/P (MAP) Pulse Ox O2 Delivery O2 Flow Rate FiO2 10/29/16 18:00 35 10/29/16 18:00 98.9 91 18 89/45 (60) 99 10/29/16 07:30 Mechanical Ventilator 10/27/16 14:44 15 Intake and Output 10/29/16 10/29/16 10/30/16 08:00 16:00 00:00 Intake Total 2120 ml Output Total 575 ml Balance 1545 ml Result Diagram: 10/29/16 0300 10/29/16 0300 Other Results Microbiology Date/Time Source Procedure Growth Status 10/27/16 17:10 Urine Catheterized Urine Urine Culture - Final Enterococcus Faecalis Complete Objective Remarks Drips: Versed off Fentanyl 100 mcg/hr. Insulin 4 units per hour Levophed off GENERAL: Obese female who is orotracheally tracheally intubated SKIN: Warm and dry. Venous stasis changes bilateral lower extremities. 5 cm wound overlying left chiang, no drainage or fluctuance. HEAD: Atraumatic. Normocephalic. EYES: Pupils equal and round, 3 mm and reactive bilaterally. No scleral icterus , + mild scleral edema. No injection or drainage. ENT: No nasal bleeding or discharge. Mucous membranes pink and moist. NECK: Trachea midline. +JVD. CARDIOVASCULAR: Regular rate and rhythm, sinus rhythm on monitor with rate in 90s. No murmurs rubs or gallops. Transvenous pacer in place right subclavian site. VVI backup rate 50, 20 Amp, Sensing threshold 1 mV RESPIRATORY: Coarse breath sounds bilaterally with no wheezes, rales. GASTROINTESTINAL: Abdomen soft, non-tender, nondistended. Bowel sounds present. MUSCULOSKELETAL: Extremities without clubbing, cyanosis. 1+ edema all extremities. NEUROLOGICAL: Pupils as per above. Patient heavily sedated and nonresponsive. A/P Assessment and Plan NEURO: Acute encephalopathy secondary to hypotension, hypercapnia - improved, following commands Peripheral neuropathy Versed stopped 10/28 Sedation vacation today. Continue propofol/fentanyl for sedation. Target RASS -2 Gabapentin on hold for now RESP: Acute hypercapnic respiratory failure Pulmonary edema (improved) Former history of tobacco abuse Ventilator bundle PRVC tidal volume 500/rate 18/P5/FiO2 50 Pulmonary edema improved on repeat imaging after patient has received diuretics and after treatment of dysrhythmia SBT and extubate post permanent pacemaker CV: Third degree heart block status post transvenous pacer Cardiogenic shock secondary to third degree heart block, improved Chronic systolic heart failure secondary to ischemic cardiomyopathy Left bundle branch block CAD with prior stents Peripheral arterial disease Hyperlipidemia Coreg on hold due to bradycardia. K was 5 which is not elevated enough to expect 3rd degree heart block. ?medication effect of coreg or took more than intended? Troponin elevation minimal and not unexpected given presentation of hypotension , etc. Continue ASA [address] Asher. Plavix on hold. Hold lisinopril and spironolactone due to hypotension. Continue Lipitor 80 mg by mouth daily Right subclavian TVP- VVI back up rate 50, 20A (threshold for capture ~15), sensitivity changed to [address] Quintana. Biventricular pacer/ICD later today. He will removed TVP in corn lab technician. Will remove L IJ CVL in ICU. . Lactic acid normal. Bumex 1 mg per tube bid. Echo 03/23/16 - image inadequate Echo 06/18/16ejection fraction 30-35% 01/15/14ardiac catheterization with drug-eluting stent to circumflex Morbid obesity GERD NPO. Post pacemaker, Glucerna 1.5 @ 40ml/hr per nutrition recs. Bowel regimen FEN/RENAL: MICHELLE Chronic kidney disease stage III [place] in place. Monitor intake and output. Monitor electrolytes and replace as indicated. ID: UTI - Enteroccoccus Leukocytosis Urinalysis with rare bacteria. White blood cell count 17. Blood culture no growth to date Urine culture with sensitive Enterococcus. Start levaquin 250 q24 (received levaquin 500 in [place] lab technician 10/29). Aztreonam 10/28 #3. Likely d/c post pacemaker if final cultures negative HEME: No acute hematologic issues ENDO: Hyperosmolar hyperglycemic state, resolved Diabetes mellitus Insulin drip.Calculated insulin requirements with drip, can start detemir 45 bid and transition off drip. Medium dose sliding scale q4. PROPH: Heparin subcutaneous for DVT prophylaxis. Protonix 40 g IV daily for stress ulcer prophylaxis and history of GERD ACCESS: Right subclavian introducer and temporary transvenous pacer placed emergently in ED 10/[address] #[address] Viera. L IJ CVL 10/28 Dr. Carney. Remove both today and utilize PIV Reviewed face sheet and no family contact available. Roommate says patient estranged from family. principal product manager Loren attempted to locate family and none available. Dr Quintana proceeding with procedure emergently as it is in patients best interest to proceed and is at risk of recurrent life threatening hemodynamic instability if tried to extubate her in order to obtain consent from her. Level 3 Makayla Camargo MD Oct 29, 2016 19:29
[2016-10-29] MEDS ORDERED: GLUCAGON 1 MG/ML VIAL OTHER PRN (19:30)
[2016-10-29] MEDS ORDERED: DEXTROSE 50% IN WATER 50 ML VIAL(D50) IV PRN (19:30)
[2016-10-29] MEDS: INSULIN ASPART SUPPLEMENTAL SCALE SQ SCH (20:00)
[2016-10-29] MEDS: INSULIN DETEMIR 100 UNITS/ML VIAL SQ SCH (21:00)
[2016-10-30] VITALS (18 sets, daily range): BP systolic 94–121; BP diastolic 50–58; PULSE 79–101; RESP 15–22; TEMP 97.9–98.9; O2SAT 92–100
[2016-10-30] MEDS ORDERED: VANCOMYCIN 1,500 MG/NS 500 ML IV SCH ×2
[2016-10-30] MEDS: CHLORHEXIDINE GLUCONATE 2 % 1 PACK (2 CLOTHS) TOP SCH (00:13)
[2016-10-30] MEDS: DEXMEDETOMIDINE INJ 200 MCG in SODIUM CHLORIDE 0.9% INJ 50 ML IV PRN ×3 (01:01→11:51)
[2016-10-30] MEDS: INSULIN ASPART SUPPLEMENTAL SCALE SQ SCH ×5 (04:00→19:59)
[2016-10-30] MEDS: AZTREONAM INJ 1,000 MG in SODIUM CHLORIDE 0.9% INJ 100 ML IV SCH ×3 (04:15→19:59)
[2016-10-30] MEDS: PANTOPRAZOLE SODIUM 40 MG VIAL IV SCH (07:42)
[2016-10-30] MEDS: ASPIRIN EC 325 MG TABEC PO SCH (07:42)
[2016-10-30] MEDS: DOCUSATE SODIUM 50 MG/SENNA 8.6 MG TAB PO SCH ×2 (07:42→20:00)
[2016-10-30] MEDS: CHLORHEXIDINE 0.12% (ORAL KIT) 15 ML CUP MT SCH ×2 (07:43→19:59)
[2016-10-30] MEDS: SODIUM CHLORIDE 0.9% FLUSH 10 ML FLUSH IV FLUSH SCH ×3 (07:43→19:59)
[2016-10-30] MEDS: BUMETANIDE 1 MG TAB PO SCH (07:43)
[2016-10-30] MEDS: ATORVASTATIN 80 MG TAB PO SCH (07:43)
--- NOTE | 2016-10-30 08:30 | MA ---
cc: JAYNE ACOSTA M.D.,DIPESH PEREZ MD DATE 10/29/2016 DATE OF [address] Camargo, Dr. Steel, Dr. Acosta. CLINICAL INDICATION The patient is a 61-year-old lady presented with complete heart block with symptoms. The patient also has ischemic cardiomyopathy with EF of 30-35%. She does have chronic systolic congestive heart failure NYH class III despite optimal medical therapy. She does have chronic left bundle-branch block at baseline with QRS more than 160 milliseconds, thus the patient came in for BiV ICD implantation. Currently the patient is on the vent. PROCEDURE IN DETAIL The patient was sedated by anesthesiologist using general anesthesia. The patient was prepped and draped in sterile fashion. Left upper chest was anesthetized and a small incision was made. Pocket was opened. Using a first rib approach we were able to access axillary vein three times. Using 9-Azeri sheath we placed RV ICD lead in the RV apex with good sensing and capture threshold. We did have to reposition the ICD lead given low sensing. We were able to get a better spot with better sensing and with reasonable capture threshold. We decided to leave the lead in place. The second lead was placed in the right atrial appendage with good sensing and capture threshold. Again there is no diaphragmatic stimulation maximum output. Then we turned our attention to placement of the CS lead. CS engagement was challenging. We were able to engage the coronary sinus. We did use a [employer] attain. Finally we were able place the quadripolar lead in the anterior mid lateral surface of the left ventricle, it is not in an ideal position but so far that is the best spot we can get. All three leads were secured to the muscle layer and a test of device showed appropriate function device/leads were verified. Given that the patient has comorbidities and multiple lines, we did use antibiotic envelope TYRX for prevention of secondary infection. Then the pocket was copiously irrigated with antibiotic solution, closed in three absorbable layers. We did defer the DFT and so far the lead testing showed normal function. Device information. It is Medtronic BiV ICD [id number]. Serial number is [id number]. So far right atrial lead is 476/52 cm. Serial number [id number]. So far he has capture threshold 1.75 volts at 1 millisecond with 380 ohms. RV lead sensing 11.8 mV, threshold is 0.75 volts at 0.5 milliseconds. Impedance 399 ohms. The lead is [id number]. Serial number is [id number]. LV lead model number is 4298/80 cm. Serial number [id number]. So far capture 2 volts with M1P2. Impedance 760 ohms. CONCLUSION 1. Successful Medtronic BiV ICD implantation to the left upper chest. 2. Successful insertion of LV lead in the mid anterolateral surface LV. 3. Successful lead testing but we defer the DFT. We did not remove the temporary pacing catheter and removed the right subclavian central line sheath with manual pressure. So far there is no oozing. 4. Estimated blood loss about 20 mL. 5. Contrast about [address] Steel, Dr. Camargo and Dr. Acosta. MD PIPO Hinojosa/BRADLEY /5:02 PM /8:27 AM MTDDedrick
[2016-10-30] MEDS: INSULIN DETEMIR 100 UNITS/ML VIAL SQ SCH ×2 (09:00→21:36)
[2016-10-30] MEDS ORDERED: GLYCERIN ADULT 2 GM SUPP RECTAL PRN (12:15)
--- NOTE | 2016-10-30 12:25 | HHI.CCPN ---
Subjective Remarks/Hospital Course 61 y/o woman presented with CHB, hypotension, weakness. Required intubation and mechanical ventilation. Temporary pacer wire placed by Dr. Ingram. On levophed for BP support. She has poorly controlled DM and glucose now > 1000. Acid/base balance acceptable. I will start an insulin gtt and admit her to CVICU. ECHO 09/24: Systolic failure, EF 30%, diastolic dysfunction Grade I 10/28 Now in sinus rhythm with intrinsic rate in the 70s. Remains on Levophed due to hypotension. On mechanical ventilation. Apparently patient was on Versed drip up to 23 mg/h last night upon arrival from ED. Performing sedation vacation. 10/29 In sinus rhythm 90s. Remains intubated but follows commands. Off levophed. Plan for biventricular pacer/ICD today. Subjective: 10/30: Currently afebrile. Status post BIV/ICD placed yesterday by Dr. Quintana. Resting in bed on dexmedetomidine drip at 0.3 mg/kg per minute. Awake and alert following commands. Nothing by mouth since midnight. No bowel movement since admission Objective Vital Signs Date Time Temp Pulse Resp B/P (MAP) Pulse Ox O2 Delivery O2 Flow Rate FiO2 10/30/16 07:47 98 40 10/30/16 06:00 91 10/30/16 04:00 98.5 18 94/50 (65) 10/29/16 19:00 Mechanical Ventilator 10/27/16 14:44 15 Intake and Output 10/30/16 10/30/16 10/31/16 08:00 16:00 00:00 Intake Total 386 ml Output Total 650 ml Balance -264 ml Result Diagram: 10/29/16 0300 10/29/16 0300 Other Results Microbiology Date/Time Source Procedure Growth Status 10/27/16 22:55 Blood Peripheral Aerobic Blood Culture - Preliminary NO GROWTH IN 3 DAYS Resulted 10/27/16 22:55 Blood Peripheral Anaerobic Blood Culture - Preliminary NO GROWTH IN 3 DAYS Resulted 10/28/16 16:00 Sputum Endotracheal Gram Stain - Final Resulted 10/28/16 16:00 Sputum Endotracheal Sputum Culture - Preliminary HEAVY GROWTH NORMAL RESPIRATORY JANIS... Resulted 10/27/16 17:10 Urine Catheterized Urine Urine Culture - Final Enterococcus Faecalis Complete Imaging Last Impressions Chest X-Ray 10/27/16 0000 Signed Impressions: Service Date/Time: Thursday, October 27, 2016 21:41 - CONCLUSION: Improvement in aeration of the lungs. Jose G Harrison MD Objective Remarks GENERAL: 61-year-old female who is orotracheally tracheally intubated SKIN: Warm and dry. Chronic venous stasis bilateral lower extremity's. Abrasion left chiang without active bleeding HEAD: Atraumatic. Normocephalic. EYES: Pupils equal and round, 3 mm and reactive bilaterally. No scleral icterus , + mild scleral edema. No injection or drainage. ENT: No nasal bleeding or discharge. Mucous membranes pink and moist. NECK: Trachea midline. Neck is very obese. CARDIOVASCULAR: RRR. S1, S2 no S4 without murmur RESPIRATORY: Diminished process due to body habitus. Few crackles appreciated anteriorly. No wheeze GASTROINTESTINAL: Abdomen soft, non-tender, obese. I Moore bowel sounds present. MUSCULOSKELETAL: Extremities . 1+ edema bilateral upper and lower extremities NEUROLOGICAL: Cranial nerves II through XII grossly intact. Strength is equal and symmetric. Diminished sensation light touch and pinprick bilateral lower extremity's. A/P Assessment and Plan NEURO/PSYCH: Toxic metabolic encephalopathy resolved History of cataracts Edentulous Diabetic Peripheral neuropathy Patient is currently on dexmedetomidine at 0.3 mu./kg per minute for sedation Target RASS 0 currently. Daily sedation vacation for extubation Holding gabapentin 300 mg 3 times a day. Resume in a.m. RESP: Acute hypercapnic respiratory failure Pulmonary edema (improved) Prior tobaccoism TRACY -no CPAP due to claustrophobia Document [facility]03[facility]15/40 Ventilator bundle Scheduled albuterol/ipratropium every 6 hours with albuterol nebulizers every 2 hours. Dyspnea Spontaneous breathing trials daily Follow-up on chest x-ray 10/29 post BIV/ICD revealed no pneumothorax. CV: Third degree heart block status post transvenous VVI pacer - removed Cardiogenic shock secondary to third degree heart block, improved Chronic systolic and diastolic heart failure secondary to ischemic cardiomyopathy Left bundle branch block CAD with prior stents history Peripheral arterial disease status post stent 2 right lower extremity Dyslipidemia Hypertension Elevated troponin Carvedilol 3.125 mg twice a day on hold due to bradycardia. Holding lisinopril 10 mg daily and spironolactone 25 mg twice daily due to hypotension Continue atorvastatin 80 mg by mouth daily for dyslipidemia Continue bumetanide 1 mg IV twice a day. On 1 mg by mouth twice a day at home Restarted aspirin 81 mg by mouth daily Currently off clopidogrel 75 mg daily. Resume when clinically indicated 2D -Echo 06/18/16 ejection fraction 30-35% LV dysfunction. Grade 1 diastolic dysfunction. Dilated LV/mild LVH 01/15/14 cardiac catheterization with MARYAM to circumflex GI: Gastroesophageal reflux disease Currently NPO. Post pacemaker, Glucerna 1.5 @ 40ml/hr per nutrition recs. Pantoprazole 40 mg IV GI prophylaxis. On omeprazole 20 mg by mouth daily at home Bowel regimen with docusate sodium/senna 1 tablet twice a day. Added polyethylene glycol 3350 17 g twice a day with closer suppositories as needed twice daily /FEN/RENAL: Acute kidney injury in the setting of Chronic kidney disease stage IIIb Barkley in place. Monitor intake and output. Monitor electrolytes and replace as indicated. AM laboratories are pending ID: UTI - Enteroccoccus faecalis Currently on levofloxacin 250 mg every 24 hours Aztreonam 1 g every 8 hours 10/28 #4. Pertinent cultures UA - 10/27 - Enterococcus faecalis sensitive to ciprofloxacin Blood cultures 2 - 10/27 - no growth Sputum - 10/28 - no growth HEME: Leukocytosis History DVT Follow CBC daily. Monitor trends. No indication for transfusion of blood proximal at this time ENDO: Hyperosmolar hyperglycemic state, resolved Diabetes mellitus Currently off insulin detemir 45 bid . Medium regimen Novulog sliding scale with Accu-Cheks q4. 25 units sliding scale insulin past 24 hours. At home on insulin glargine 75 units twice a day and insulin aspart 48 units subcutaneous 3 times a day PROPH: GI - pantoprazole 40 mg IV daily DVT - SCD/Pharmacological prophylaxis to be initiated in a.m. 10/31 Access - utilize peripheral IV. Central line if indicated Level III follow-up Lev Soto MD Oct 30, 2016 12:25
[2016-10-30] MEDS ORDERED: SODIUM CHLOR 0.9% 1000 ML INJ 1,000 ML IV SCH (12:45)
[2016-10-30] MEDS: POLYETHYLENE GLYCOL 17 GM PKG NG SCH ×2 (13:00→20:00)
--- NOTE | 2016-10-30 13:51 | EKG ---
Date Performed: 10/29/2016 Time Performed: 18:38:25 PTAGE: 61 years EKG: ELECTRONIC VENTRICULAR PACEMAKER ABNORMAL RHYTHM ECG PREVIOUS TRACING : 10/27/2016 14.26 Since the prior tracing, the patient shows P-wave synchrono us pacing. The prior EKG shows an underlying rhythm that cannot be determined with certainty, but is possibly atrial fibrillation. Patient is now clearly in Sinus rhythm with P-wave synchronous pacing and probably some LV fusion as there has been a marked shift in axis since the prior tracing. DOCTOR: Elaine Gabriel Interpretating Date/Time 10/30/2016 13:49:13
[2016-10-30] MEDS: GABAPENTIN 300 MG CAP PO SCH ×2 (15:11→17:29)
[2016-10-30] MEDS ORDERED: fentaNYL DRIP 250 ML IV PRN (15:30)
[2016-10-30] MEDS ORDERED: LEVOFLOXACIN 250 MG PREMIX INJ 50 ML IV SCH (16:00)
[2016-10-30] MEDS: RESP: ALBUTEROL 2.5 MG/IPRATROPIUM 0.5 MG NEB (SCH) NEB ×2 (16:10→20:25)
[2016-10-30] MEDS: BUMETANIDE INJ 1 MG/4 ML VIAL IV PUSH SCH (20:00)
[2016-10-30] MEDS ORDERED: ACETAMINOPHEN 500 MG CPLT PO PRN (22:45)
[2016-10-30] MEDS: MORPHINE SULFATE 4 MG/ML INJ IV PRN (22:46)
[2016-10-31] VITALS (25 sets, daily range): BP systolic 102–157; BP diastolic 53–79; PULSE 96–117; RESP 12–21; TEMP 98.1–99.4; O2SAT 92–100
[2016-10-31] MEDS: INSULIN ASPART SUPPLEMENTAL SCALE SQ SCH ×5 (00:07→22:44)
[2016-10-31] MEDS: RESP: ALBUTEROL 2.5 MG/IPRATROPIUM 0.5 MG NEB (SCH) NEB ×4 (03:26→21:39)
[2016-10-31] MEDS: CHLORHEXIDINE GLUCONATE 2 % 1 PACK (2 CLOTHS) TOP SCH (04:00)
[2016-10-31] MEDS ORDERED: diphenhydrAMINE HCL 50 MG/ML VIAL ONE (04:10)
[2016-10-31] MEDS: AZTREONAM INJ 1,000 MG in SODIUM CHLORIDE 0.9% INJ 100 ML IV SCH (04:28)
[2016-10-31] MEDS ORDERED: diphenhydrAMINE HCL 50 MG/ML VIAL IV ONE (04:30)
[2016-10-31 06:10] LABS: ALKALINE PHOSPHATASE 254 U/L (45-117); ALT (GPT) 19 U/L (10-53); ANION GAP 10 MEQ/L (5-15); AST (GOT) 42 U/L (15-37); BICARBONATE 26.6 MEQ/L (21.0-32.0); CHLORIDE 107 MEQ/L (98-107); GLOMERULAR FILTRATION RATE 55 ML/MIN (>89); MAGNESIUM 2.5 MG/DL (1.5-2.5); POTASSIUM 4.1 MEQ/L (3.5-5.1); SODIUM (NA) 144 MEQ/L (136-145); TOTAL BILIRUBIN ADULT 0.3 MG/DL (0.2-1.0)
[2016-10-31 06:12] LABS: BLOOD UREA NITROGEN 23 MG/DL (7-18)
[2016-10-31] MEDS: CHLORHEXIDINE 0.12% (ORAL KIT) 15 ML CUP MT SCH ×2 (07:26→20:00)
[2016-10-31] MEDS ORDERED: ATORVASTATIN 40 MG TAB PO SCH (09:00)
[2016-10-31] MEDS: INSULIN DETEMIR 100 UNITS/ML VIAL SQ SCH ×2 (09:00→22:45)
[2016-10-31] MEDS ORDERED: BUMETANIDE INJ 1 MG/4 ML VIAL IV PUSH SCH (09:00)
[2016-10-31] MEDS ORDERED: ASPIRIN EC 81 MG TABEC PO SCH (09:00)
[2016-10-31] MEDS: BUMETANIDE INJ 1 MG/4 ML VIAL IV PUSH SCH ×2 (09:25→17:34)
[2016-10-31] MEDS: HEPARIN SODIUM - SQ 10,000 UNITS/ML VIAL SQ SCH ×3 (09:26→23:51)
[2016-10-31] MEDS: GABAPENTIN 300 MG CAP PO SCH ×2 (09:26→13:44)
[2016-10-31] MEDS: POLYETHYLENE GLYCOL 17 GM PKG NG SCH ×2 (09:26→20:44)
[2016-10-31] MEDS: ASPIRIN 81 MG CHEW TAB CHEW SCH (09:26)
[2016-10-31] MEDS: ATORVASTATIN 80 MG TAB PO SCH (09:26)
[2016-10-31] MEDS: DOCUSATE SODIUM 50 MG/SENNA 8.6 MG TAB PO SCH ×2 (09:26→20:44)
[2016-10-31] MEDS: SODIUM CHLORIDE 0.9% FLUSH 10 ML FLUSH IV FLUSH SCH ×2 (09:27→20:44)
[2016-10-31] MEDS: PANTOPRAZOLE SODIUM 40 MG VIAL IV SCH (09:27)
[2016-10-31] MEDS: MORPHINE SULFATE 4 MG/ML INJ IV PRN ×2 (09:38→20:45)
[2016-10-31] MEDS ORDERED: GLYCERIN ADULT 2 GM SUPP RECTAL PRN (11:30)
--- NOTE | 2016-10-31 11:35 | HHI.CCPN ---
Subjective Remarks/Hospital Course 61 y/o woman presented with CHB, hypotension, weakness. Required intubation and mechanical ventilation. Temporary pacer wire placed by Dr. Ingram. On levophed for BP support. She has poorly controlled DM and glucose now > 1000. Acid/base balance acceptable. I will start an insulin gtt and admit her to CVICU. ECHO 09/24: Systolic failure, EF 30%, diastolic dysfunction Grade I 10/28 Now in sinus rhythm with intrinsic rate in the 70s. Remains on Levophed due to hypotension. On mechanical ventilation. Apparently patient was on Versed drip up to 23 mg/h last night upon arrival from ED. Performing sedation vacation. 10/29 In sinus rhythm 90s. Remains intubated but follows commands. Off levophed. Plan for biventricular pacer/ICD today. 10/30: Currently afebrile. Status post BIV/ICD placed yesterday by Dr. Quintana. Resting in bed on dexmedetomidine drip at 0.3 mg/kg per minute. Awake and alert following commands. Nothing by mouth since midnight. No bowel movement since admission Subjective: 10/31: Afebrile. Extubated yesterday without application. Currently on nasal cannula. Tolerating diabetic diet. No bowel movement. Objective Vital Signs Date Time Temp Pulse Resp B/P (MAP) Pulse Ox O2 Delivery O2 Flow Rate FiO2 10/31/16 10:00 107 10/31/16 08:00 98.8 17 154/79 (104) 97 10/31/16 07:00 Nasal Cannula 3.00 10/30/16 12:40 35 Intake and Output 10/31/16 10/31/16 10/31/16 07:59 15:59 23:59 Intake Total 1503 ml Output Total 1000 ml Balance 503 ml Result Diagram: 10/29/16 0300 10/31/16 0509 Other Results Microbiology Date/Time Source Procedure Growth Status 10/27/16 22:55 Blood Peripheral Aerobic Blood Culture - Preliminary NO GROWTH IN 4 DAYS Resulted 10/27/16 22:55 Blood Peripheral Anaerobic Blood Culture - Preliminary NO GROWTH IN 4 DAYS Resulted 10/28/16 16:00 Sputum Endotracheal Gram Stain - Final Complete 10/28/16 16:00 Sputum Culture - Final Beta Strep Not Group A Staphylococcus Aureus Complete 10/27/16 17:10 Urine Catheterized Urine Urine Culture - Final Enterococcus Faecalis Complete Imaging Last Impressions Chest X-Ray 10/29/16 0000 Signed Impressions: Service Date/Time: Saturday, October 29, 2016 17:29 - CONCLUSION: 1. Adequate placement of pacemaker. There is limited visualization of all leads. 2. No pneumothorax. Jc Strauss MD Objective Remarks GENERAL: 61-year-old female sitting in bed on nasal cannula SKIN: Warm and dry. Chronic venous stasis bilateral lower extremities. Evolving nonbleeding abrasion left anterior tibial region without active bleeding HEAD: Atraumatic. Normocephalic. EYES: Pupils equal and round, 3 mm and reactive bilaterally. No scleral icterus , + mild scleral edema. No injection or drainage. ENT: No nasal bleeding or discharge. Mucous membranes pink and moist. NECK: Trachea midline. Neck is very obese. CARDIOVASCULAR: RRR. S1, S2 no S4 without murmur RESPIRATORY: Diminished process due to body habitus. Few crackles appreciated anteriorly. No wheeze GASTROINTESTINAL: Abdomen soft, non-tender, obese. I Moore bowel sounds present. MUSCULOSKELETAL: Extremities . 1+ edema bilateral upper and lower extremities NEUROLOGICAL: Cranial nerves II through XII grossly intact. Strength is equal and symmetric. Diminished sensation light touch and pinprick bilateral lower extremity's. A/P Assessment and Plan NEURO/PSYCH: Toxic metabolic encephalopathy resolved History of cataracts Edentulous Diabetic Peripheral neuropathy Acetaminophen 500 mg every 4 hours. Pain 127/fever Resumed gabapentin 300 mg 3 times a day. RESP: Acute hypercapnic respiratory failure Pulmonary edema (improved) Prior tobaccoism TRACY -no CPAP due to claustrophobia Document patient COPD/asthma Nasal cannula to maintain saturations greater than equal to 92% Incentive spirometry while awake Scheduled albuterol/ipratropium every 6 hours with albuterol nebulizers every 2 hours. Dyspnea A cappella every 6 hours Follow-up on chest x-ray 10/29 post BIV/ICD revealed no pneumothorax. CV: Third degree heart block status post transvenous VVI pacer - removed Cardiogenic shock secondary to third degree heart block, improved Chronic systolic and diastolic heart failure secondary to ischemic cardiomyopathy Left bundle branch block CAD with prior stents history Peripheral arterial disease status post stent 2 right lower extremity Dyslipidemia Hypertension Elevated troponin Carvedilol 3.125 mg twice a day on hold due to bradycardia. Holding lisinopril 10 mg daily due to hypotension Continue atorvastatin 80 mg by mouth daily for dyslipidemia Continue bumetanide 1 mg IV twice a day. On 1 mg by mouth twice a day at home. Resuming spironolactone 25 mg daily. At home on spironolactone 25 mg twice daily Restarted aspirin 81 mg by mouth daily Currently off clopidogrel 75 mg daily. Resume when clinically indicated in a.m. 2D -Echo 06/18/16 ejection fraction 30-35% LV dysfunction. Grade 1 diastolic dysfunction. Dilated LV/mild LVH 01/15/14 cardiac catheterization with MARYAM to circumflex GI: Gastroesophageal reflux disease Currently on 1800 ADA diet On omeprazole 20 mg by mouth daily at home. Protonix 20 no grams by mouth daily here Bowel regimen with docusate sodium/senna 1 tablet twice a day. Added polyethylene glycol 3350 17 g twice a day lactulose 4 times a day with glycerin suppositories as needed twice daily /FEN/RENAL: Acute kidney injury in the setting of Chronic kidney disease stage IIIb Barkley in place. Monitor intake and output. Monitor electrolytes and replace as indicated. AM laboratories are pending ID: UTI - Enteroccoccus faecalis MSSA, strep pneumonia Discontinued aztreonam today. Treatment with levofloxacin 5 days. GFR currently 55 so 750 mg IV every 24 hours 5 days Pertinent cultures UA - 10/27 - Enterococcus faecalis sensitive to ciprofloxacin Blood cultures - 10/27 - no growth Sputum - 10/28 -MSSA, beta strep not a HEME: Leukocytosis History DVT Follow CBC daily. Monitor trends. No indication for transfusion of blood proximal at this time ENDO: Hyperosmolar hyperglycemic state, resolved Diabetes mellitus Currently on insulin detemir 35 bid . Medium regimen Novulog sliding scale with Accu-Cheks before meals/at bedtime and O300 At home on insulin glargine 75 units twice a day and insulin aspart 48 units subcutaneous 3 times a day PROPH: GI - pantoprazole 40 mg IV daily DVT - SCD/Pharmacological prophylaxis to be initiated in a.m. 10/31 with heparin subcutaneous Access - utilize peripheral IV. Central line if indicated Level II follow-up Stable from critical care medicine standpoint. Assign care to hospitalist in a.m. 11/01 Lev Soto MD Oct 31, 2016 11:35
[2016-10-31 12:46] LABS: AUTOMATED NEUTROPHIL # 8.2 TH/MM3 (1.8-7.7); BASOPHIL % 0.4 % (0.0-2.0); EOSINOPHIL # 0.3 TH/MM3 (0-0.4); HEMATOCRIT 34.9 % (35.0-46.0); HEMO FLAGS DIFF FINAL; LYMPH % 14.3 % (9.0-44.0); LYMPHOCYTE # 1.6 TH/MM3 (1.0-4.8); MEAN CORPUSCULAR HEMOGLOBIN 26.7 PG (27.0-34.0); MEAN CORPUSCULAR HGB CONC 31.4 % (32.0-36.0); MONO % 8.8 % (0.0-8.0); NEUT % 73.5 % (16.0-70.0); PLATELET COUNT 169 TH/MM3 (150-450); RED BLOOD COUNT 4.11 MIL/MM3 (4.00-5.30); RED CELL DISTRIBUTION WIDTH 15.3 % (11.6-17.2); WHITE BLOOD COUNT 11.1 TH/MM3 (4.0-11.0)
[2016-10-31] MEDS ORDERED: POTASSIUM PHOSPHATE INJ 15 MMOL in SODIUM CHLORIDE 0.9% INJ 150 ML IV ONE (13:00)
[2016-10-31] MEDS: LEVOFLOXACIN 750 MG PREMIX INJ 150 ML IV SCH (13:43)
[2016-10-31] MEDS: LACTULOSE SYRUP 20 GM/30 ML CUP PO SCH ×3 (13:44→20:44)
[2016-10-31] MEDS: ACETAMINOPHEN/HYDROcodone 325 MG/5 MG TAB PO PRN ×2 (14:20→22:44)
[2016-10-31] MEDS: CARVEDILOL 3.125 MG TAB PO SCH (20:44)
[2016-10-31] MEDS ORDERED: PHARMACY ORDERED LAB ONE (23:45)
[2016-11-01] VITALS (31 sets, daily range): BP systolic 109–155; BP diastolic 62–83; PULSE 86–99; RESP 16–18; TEMP 98–100; O2SAT 93–97
[2016-11-01] MEDS ORDERED: PHARMACY ORDERED LAB ONE (00:45)
[2016-11-01] MEDS: MORPHINE SULFATE 4 MG/ML INJ IV PRN (01:30)
[2016-11-01] MEDS: RESP: ALBUTEROL 2.5 MG/IPRATROPIUM 0.5 MG NEB (SCH) NEB ×4 (02:51→20:48)
[2016-11-01] MEDS: CHLORHEXIDINE GLUCONATE 2 % 1 PACK (2 CLOTHS) TOP SCH ×2 (03:33→19:38)
[2016-11-01] MEDS: ACETAMINOPHEN/HYDROcodone 325 MG/5 MG TAB PO PRN ×3 (03:44→12:27)
[2016-11-01] MEDS: INSULIN ASPART SUPPLEMENTAL SCALE SQ SCH ×5 (03:52→22:04)
[2016-11-01] MEDS ORDERED: diphenhydrAMINE HCL 50 MG/ML VIAL IV ONE (04:15)
[2016-11-01 06:05] LABS: BASOPHIL # 0.1 TH/MM3 (0-0.2); BASOPHIL % 0.6 % (0.0-2.0); EOSINOPHIL # 0.6 TH/MM3 (0-0.4); EOSINOPHIL % 6.1 % (0.0-4.0); HEMO FLAGS DIFF FINAL; LYMPH % 20.2 % (9.0-44.0); LYMPHOCYTE # 1.9 TH/MM3 (1.0-4.8); MEAN CELL VOLUME 83.8 FL (80.0-100.0); MEAN CORPUSCULAR HEMOGLOBIN 26.5 PG (27.0-34.0); MEAN CORPUSCULAR HGB CONC 31.7 % (32.0-36.0); NEUT % 64.1 % (16.0-70.0); PLATELET COUNT 165 TH/MM3 (150-450); RED CELL DISTRIBUTION WIDTH 14.8 % (11.6-17.2); WHITE BLOOD COUNT 9.3 TH/MM3 (4.0-11.0)
[2016-11-01 06:34] LABS: BICARBONATE 27.3 MEQ/L (21.0-32.0); MAGNESIUM 2.3 MG/DL (1.5-2.5); POTASSIUM 3.6 MEQ/L (3.5-5.1)
[2016-11-01] MEDS: CHLORHEXIDINE 0.12% (ORAL KIT) 15 ML CUP MT SCH ×2 (07:49→19:13)
[2016-11-01 08:38] LABS: CALCIUM-PROTEIN CORRECTED 8.8 MG/DL (8.5-10.1)
[2016-11-01] MEDS: LACTULOSE SYRUP 20 GM/30 ML CUP PO SCH ×4 (08:48→21:54)
[2016-11-01] MEDS: CLOPIDOGREL 75 MG TAB PO SCH (08:49)
[2016-11-01] MEDS: DOCUSATE SODIUM 50 MG/SENNA 8.6 MG TAB PO SCH ×2 (08:49→21:54)
[2016-11-01] MEDS: ATORVASTATIN 80 MG TAB PO SCH (08:50)
[2016-11-01] MEDS: PANTOPRAZOLE SOD 20 MG DELAYED RELEASE TAB PO SCH (08:51)
[2016-11-01] MEDS: ASPIRIN 81 MG CHEW TAB CHEW SCH (08:52)
[2016-11-01] MEDS: CARVEDILOL 3.125 MG TAB PO SCH ×2 (08:53→21:54)
[2016-11-01] MEDS: POLYETHYLENE GLYCOL 17 GM PKG NG SCH ×2 (08:53→21:55)
[2016-11-01] MEDS: SPIRONOLACTONE 25 MG TAB PO SCH (08:53)
[2016-11-01] MEDS: BUMETANIDE INJ 1 MG/4 ML VIAL IV PUSH SCH ×2 (08:55→16:54)
[2016-11-01] MEDS: HEPARIN SODIUM - SQ 10,000 UNITS/ML VIAL SQ SCH ×3 (08:57→23:34)
[2016-11-01] MEDS: SODIUM CHLORIDE 0.9% FLUSH 10 ML FLUSH IV FLUSH SCH ×2 (08:58→21:55)
[2016-11-01] MEDS: INSULIN DETEMIR 100 UNITS/ML VIAL SQ SCH (08:58)
[2016-11-01] MEDS ORDERED: GABAPENTIN 300 MG CAP PO SCH (09:00)
[2016-11-01] MEDS ORDERED: diphenhydrAMINE HCL 50 MG/ML VIAL IV PUSH ONE (11:00)
[2016-11-01] MEDS: LEVOFLOXACIN 750 MG PREMIX INJ 150 ML IV SCH (11:35)
[2016-11-01] MEDS: diphenhydrAMINE HCL 50 MG/ML VIAL IV PUSH PRN (17:00)
--- NOTE | 2016-11-01 17:06 | HHI.PR ---
Subjective Remarks patient up on side of the chair main complain now is right foot pain- patient got Lortab overnight states she fell about a week ago- ox exam wheals and itching on both UE and back and legs occureed early am- rahes and hives- relieved with IV Benadryl per patient history of chronic pain- neuropathy on Gabapentin, denies anyb allergy to Morphine Objective Vitals Vital Signs Date Time Temp Pulse Resp B/P (MAP) Pulse Ox O2 Delivery O2 Flow Rate FiO2 11/01/16 16:30 90 11/01/16 16:28 98.2 91 16 117/65 (82) 97 11/01/16 16:00 Nasal Cannula 2.00 11/01/16 15:00 86 11/01/16 14:00 86 11/01/16 13:03 16 11/01/16 13:00 94 11/01/16 12:18 98.2 91 18 133/68 (89) 97 11/01/16 12:00 92 11/01/16 12:00 Nasal Cannula 2.00 11/01/16 11:00 90 11/01/16 10:00 96 11/01/16 09:06 96 Nasal Cannula 2.00 11/01/16 09:00 94 11/01/16 08:00 Nasal Cannula 2.00 11/01/16 08:00 98.0 92 18 140/83 (102) 96 11/01/16 08:00 92 11/01/16 07:45 Nasal Cannula 2.00 11/01/16 07:00 94 11/01/16 06:00 96 11/01/16 05:00 93 11/01/16 04:00 97 11/01/16 03:40 96 Nasal Cannula 2.00 11/01/16 03:40 99.5 95 18 109/62 (78) 96 11/01/16 03:00 96 11/01/16 02:00 95 11/01/16 01:00 96 11/01/16 00:00 96 10/31/16 23:30 95 Nasal Cannula 2.00 10/31/16 23:30 99.4 96 18 127/63 (84) 95 10/31/16 23:00 96 10/31/16 22:00 98 10/31/16 21:40 96 Nasal Cannula 2.00 10/31/16 21:20 98.5 105 18 136/65 (88) 96 10/31/16 21:20 96 Nasal Cannula 2.00 10/31/16 21:00 106 10/31/16 20:00 104 10/31/16 19:00 104 10/31/16 18:27 105 I/O 10/31/16 10/31/16 10/31/16 11/01/16 11/01/16 11/01/16 07:00 15:00 23:00 07:00 15:00 23:00 Intake Total 1503 ml 720 ml 480 ml 150 ml Output Total 1000 ml 650 ml 900 ml Balance 503 ml -650 ml 720 ml -420 ml 150 ml Intake Oral 960 ml 720 ml 480 ml IV Total 543 ml 0 ml 150 ml Output Urine Total 1000 ml 650 ml 900 ml # Bowel Movements 0 0 Result Diagram: 11/01/16 0554 11/01/16 0534 Imaging Last Impressions Chest X-Ray 10/29/16 0000 Signed Impressions: Service Date/Time: Saturday, October 29, 2016 17:29 - CONCLUSION: 1. Adequate placement of pacemaker. There is limited visualization of all leads. 2. No pneumothorax. Jc Strauss MD Objective Remarks awake and alert, not in acute distress anciteric no nuchal rigidity no wheezes regular rhythm abdomen - flabby, soft extremities + edema, + erythema right leg- mild calf tenderness/induration foot is laterally displaced ? fracture- good pulses limited range of motion of the foot hip and knee- good range of motion Urinary Catheter: Yes Assessment to: Continue Barkley insert reason: Measure Accurate Output Date of Insertion: Oct 27, 2016 A/P Assessment and Plan 61 years old male Toxic metabolic encephalopathy resolved History of cataracts Edentulous Diabetic Peripheral neuropathy Acetaminophen 500 mg every 4 hours. Pain 127/fever Increase gabapentin 300 mg 3 times a day. RESP: Acute hypercapnic respiratory failure Pulmonary edema (improved) Prior tobaccoism TRACY -no CPAP due to claustrophobia Document patient COPD/asthma Nasal cannula to maintain saturations greater than equal to 92% Incentive spirometry while awake Scheduled albuterol/ipratropium every 6 hours with albuterol nebulizers every 2 hours. Dyspnea A cappella every 6 hours Follow-up on chest x-ray 10/29 post BIV/ICD revealed no pneumothorax. CV: Third degree heart block status post transvenous VVI pacer - removed Cardiogenic shock secondary to third degree heart block, improved Chronic systolic and diastolic heart failure secondary to ischemic cardiomyopathy Left bundle branch block CAD with prior stents history Peripheral arterial disease status post stent 2 right lower extremity Dyslipidemia Hypertension Elevated troponin Carvedilol 3.125 mg twice a day Holding lisinopril 10 mg daily due to hypotension Continue atorvastatin 80 mg by mouth daily for dyslipidemia Continue bumetanide 1 mg IV twice a day. On 1 mg by mouth twice a day at home. Resuming spironolactone 25 mg daily. At home on spironolactone 25 mg twice daily Restarted aspirin 81 mg by mouth daily Currently off clopidogrel 75 mg daily. Resume when clinically indicated in a.m. 2D -Echo 06/18/16 ejection fraction 30-35% LV dysfunction. Grade 1 diastolic dysfunction. Dilated LV/mild LVH 01/15/14 cardiac catheterization with MARYAM to circumflex Acute allergic reaction- I am thinking it is from Lortab- + allergy to codeine improved earlier with Benadryl IV- received Lortab again - recurred Give IV Benadryl 12.5 mg IV q 8 x 3 Prednisone 40 mg po x 1 now Chronic pain neuropathic- complain of increase pain.muscle aches, rashes - Increase gabapendtin --Soma 350 mg po tid- first dose now Gastroesophageal reflux disease Currently on 1800 ADA diet On omeprazole 20 mg by mouth daily at home. Protonix 20 no grams by mouth daily here Bowel regimen with docusate sodium/senna 1 tablet twice a day. Added polyethylene glycol 3350 17 g twice a day lactulose 4 times a day with glycerin suppositories as needed twice daily /FEN/RENAL: Acute kidney injury in the setting of Chronic kidney disease stage IIIb Barkley in place. Monitor intake and output. Monitor electrolytes and replace as indicated. AM laboratories are pending ID: UTI - Enteroccoccus faecalis Left leg cellulitis- ff exam MSSA, strep pneumonia get doppler US of legs Treatment with levofloxacin 5 days. GFR currently 55 so 750 mg IV every 24 hours 5 days Pertinent cultures UA - 10/27 - Enterococcus faecalis sensitive to ciprofloxacin Blood cultures 2 - 10/27 - no growth Sputum - 10/28 -MSSA, beta strep not a HEME: Leukocytosis History DVT right leg Follow CBC daily. Monitor trends. No indication for transfusion of blood proximal at this time get doppler us of legs- right- patient in pain Right foot pain/swelling check xrays per patient recent fall about a week ago- swelling since ENDO: Hyperosmolar hyperglycemic state, resolved Diabetes mellitus Currently on insulin detemir 35 bid . Medium regimen Novulog sliding scale with Accu-Cheks before meals/at bedtime and O300 At home on insulin glargine 75 units twice a day and insulin aspart 48 units subcutaneous 3 times a day PROPH: GI - pantoprazole 40 mg IV daily DVT - 10/31 with heparin subcutaneous Access - utilize peripheral IV. Central line if indicated Riddhi Davila MD Nov 01, 2016 17:06
[2016-11-01] MEDS ORDERED: predniSONE 20 MG TAB PO ONE (17:15)
[2016-11-01] MEDS: CARISOPRODOL 350 MG TAB PO SCH ×2 (17:38→21:54)
[2016-11-01] MEDS: GABAPENTIN 300 MG CAP PO SCH (18:10)
--- NOTE | 2016-11-01 18:18 | RADRPT ---
EXAM DATE/TIME: 11/01/2016 17:47 [facility] COMPARISON: No previous studies available for comparison. INDICATIONS : Right lower leg pain; fall 1 week ago. MEDICAL HISTORY : None. SURGICAL HISTORY : None. ENCOUNTER: Initial ACUITY: 1 week PAIN SCORE: 10/10 LOCATION: Right lower leg. FINDINGS: 4 views of the right leg demonstrate an oblique minimally displaced fracture of the distal fibular me taphysis with approximately 2 mm of lateral displacement of the distal fragment. There is also a st sverse displaced medial malleolus fragment with 3 mm of displacement. Ankle mortise is intact. There is diffuse right leg subcutaneous edema. Arterial vascular calcification is present. CONCLUSION: 1. There is an oblique minimally displaced distal fibular fracture and displaced transverse medial ma lleolus fracture. 2. Diffuse subcutaneous edema of the right lower extremity. Myles Thomas MD on November 01, 2016 at 18:15 Board Certified Radiologist. This report was verified electronically.
--- NOTE | 2016-11-01 18:22 | RADRPT ---
EXAM DATE/TIME: 11/01/2016 17:55 [facility] COMPARISON: FOOT RIGHT COMPLETE ([id number]), January 15, 2015, 11:15. INDICATIONS : Right foot pain; fall 1 week ago. MEDICAL HISTORY : None. SURGICAL HISTORY : None. ENCOUNTER: Initial ACUITY: 1 week PAIN SCORE: 10/10 LOCATION: Right foot FINDINGS: 3 views of the right foot demonstrate undermineralization of the bones. There is a fracture of the me dial malleolus and distal fibula, further described on leg x-ray. Lisfranc joint appears intact. Ther e is diffuse subcutaneous edema of the right foot. CONCLUSION: 1. There is a distal fibula and medial malleolus fracture. These are further described on the leg x-r ay report. 2. Diffuse undermineralization of the bones with diffuse subcutaneous edema. Myles Thomas MD on November 01, 2016 at 18:16 Board Certified Radiologist. This report was verified electronically.
--- NOTE | 2016-11-01 19:01 | RADRPT ---
EXAM DATE/TIME: 11/01/2016 18:10 [facility] COMPARISON: US LEG BILATERAL VENOUS DOPPLER, January 16, 2015, 20:40. INDICATIONS : Bilateral leg swelling. MEDICAL HISTORY : Myocardial infarction. Congestive heart failure. Hypercholesterolemia. Cataracts. Peripheral neuropat hy. Head trauma. Migraine. Numbness. Anticoagulant therapy, plavix. Chest pain. COPD. Snoring. Sleep apnea. Gastroesophageal reflux disorder. Renal failure. Arthritis. Diabetes. SURGICAL HISTORY : Tonsillectomy.Cholecystectomy. Bilateral cataract surgery. Coronary stents. Cardiac Catheterization. Cyst removal from buttocks. ENCOUNTER: Subsequent ACUITY: 1 day PAIN SCORE: 6/10 LOCATION: Bilateral legs. TECHNIQUE: Venous ultrasound of the left and right leg was performed from the inguinal ligament to the proximal calf. Real-time, color Doppler and spectral tracing, compression and augmentation techniques were us ed. FINDINGS: RIGHT LEG: There is normal compressibility of the deep venous system from the inguinal region to the proximal ca lf. No echogenic clot is seen in the lumen of the common femoral, femoral, popliteal, and posterior tibial veins. There is a normal response of the venous system to proximal and distal augmentation an d respiration. LEFT LEG: There is normal compressibility of the deep venous system from the inguinal region to the proximal ca lf. No echogenic clot is seen in the lumen of the common femoral, femoral, popliteal, and posterior tibial veins. There is a normal response of the venous system to proximal and distal augmentation an d respiration. CONCLUSION: No DVT is identified within either lower extremity. Myles Thomas MD on November 01, 2016 at 18:59 Board Certified Radiologist. This report was verified electronically.
[2016-11-01] MEDS ORDERED: INSULIN HUMAN REGULAR 1,000 UNITS/10 ML VIAL SQ PRN (22:30)
[2016-11-01] MEDS ORDERED: SODIUM CHLORID 0.9% 500 ML IV PRN (22:30)
[2016-11-01] MEDS ORDERED: POVIDONE IODINE 5% (ANTISEPSIS KIT) 4 APPLICATIONS EACH NARE PRN (22:30)
[2016-11-01] MEDS ORDERED: CHLORHEXIDINE GLUCONATE 2 % 1 PACK (2 CLOTHS) TOPICAL PRN (22:30)
[2016-11-01] MEDS ORDERED: LACTATED RINGER'S 1000 ML IV PRN (22:30)
[2016-11-02] VITALS (16 sets, daily range): BP systolic 126–154; BP diastolic 58–72; PULSE 89–99; RESP 18–20; TEMP 97.6–98.5; O2SAT 93–97
[2016-11-02] MEDS ORDERED: MINERAL OIL ENEMA 118 ML BTL RECTAL ONE (02:00)
[2016-11-02] MEDS: diphenhydrAMINE HCL 50 MG/ML VIAL IV PUSH PRN (02:08)
[2016-11-02] MEDS: INSULIN ASPART SUPPLEMENTAL SCALE SQ SCH ×5 (03:00→21:00)
[2016-11-02] MEDS: RESP: ALBUTEROL 2.5 MG/IPRATROPIUM 0.5 MG NEB (SCH) NEB ×4 (03:55→20:56)
--- NOTE | 2016-11-02 05:55 | MB ---
cc: ROMEO CELESTIN DATE OF ADMISSION 10/27/2016 DATE OF CONSULTATION 11/01/2016 REASON FOR CONSULTATION Displaced right ankle fracture. CONSULTING PHYSICIAN Dr. Davila MARCIO Roy is a 61-year-old female who has multiple medical problems including CHF, hypertension, diabetes and cardiac arrhythmia. She presented to the emergency room in diabetic ketoacidosis. She was initially admitted to the Intensive Care Unit. The patient subsequently had a pacemaker placement by cardiology. She states that four days ago she was getting up out of bed when she fell in the hospital. She had immediate right ankle pain. She has been unable to stand or ambulate since that fall. X-rays were ordered this morning revealing a right ankle fracture. She is currently awake and alert on the cardiac floor. Her chief complaint is her right ankle. Pain is worse with movement and is improved with rest. She denies ankle pain prior to her fall. PAST MEDICAL HISTORY ILLNESSES 1. Renal insufficiency. 2. High cholesterol. 3. Diabetes. 4. Morbid obesity 5. Peripheral artery disease. 6. Cardiac arrhythmia. SURGERIES 1. Cholecystectomy. 2. Left femoral artery percutaneous catheterization. 3. Cardiac catheterization. 4. Pacemaker placement. ALLERGIES CODEINE. PENICILLIN. HYDROMORPHONE. FAMILY HISTORY Noncontributory. SOCIAL HISTORY The patient has a history of smoking. She denies alcohol or drug abuse. REVIEW OF SYSTEMS The patient denies headache, visual changes, neck pain, chest pain, shortness of breath, abdominal pain, nausea, vomiting or recent weight loss. She complains of right ankle pain. She did have some episodes of dizziness prior to her pacemaker placement. PHYSICAL EXAMINATION GENERAL: The patient is a pleasant 61-year female in no acute distress. She is awake and alert. She is alert and oriented x 3. VITAL SIGNS: Temperature 98.2, pulse 91, respirations 16, blood pressure 117/65, O2 sat 97% on room air. HEAD: The patient is normocephalic. Pupils are equal. NECK: Soft, nontender. Trachea is midline. ABDOMEN: Soft, nontender, nondistended. EXTREMITIES: Examination of the bilateral upper extremities reveals no obvious pain or deformity with shoulder, elbow or wrist motion. She has good capillary refill in her fingers. Radial pulses palpable. Sensation intact in all fingers. Examination of the left leg reveals no pain with hip, knee or ankle motion. Skin is intact. Dorsalis pedis pulses palpable. Examination of the right leg reveals no pain with hip or knee motion. She has mild swelling around her ankle. There is some deformity of the ankle. She has pain with any ankle motion. Skin is otherwise intact. Dorsalis pedis pulses palpable. Sensation is grossly intact in the right foot. She does have some decreased sensation in the bilateral feet secondary to peripheral neuropathy. X-RAYS X-rays of the right ankle were reviewed. X-rays reveal a displaced right ankle bimalleolar fracture. IMPRESSION 1. Diabetes. 2. Peripheral last disease 3. Displaced right ankle fracture. 4. Cardiac arrhythmia status post pacemaker placement. PLAN The treatment options were discussed with the patient. At this point I would recommend open reduction, internal fixation of the right ankle. The risks of surgery include bleeding, infection, injury to arteries, nerves and blood vessels, infection, wound infection, need for amputation, ankle stiffness as well as medical complications including blood clot, stroke, heart attack and . All questions were answered. I will plan on surgery tomorrow if she is medically cleared. A mid-level provider in my office, nurse practitioner or PA, may see this patient on a follow-up basis and continue to implement the objective of this plan including: Starting or adjusting medications, injections of muscle, tendon, bursa or joints, cast application, orthotic or brace application, physical therapy, further radiographic studies including x-ray, MRI, CT, ultrasounds or bone scan, vascular studies, neurologic studies, or other specialist consultations, and proceeding with surgical management as appropriate. MD ROBIN Parker/KIMMY /8:47 PM /5:39 AM
[2016-11-02] MEDS: CARISOPRODOL 350 MG TAB PO SCH ×3 (06:34→21:14)
[2016-11-02] MEDS: CHLORHEXIDINE 0.12% (ORAL KIT) 15 ML CUP MT SCH ×2 (07:08→20:00)
[2016-11-02] MEDS: HEPARIN SODIUM - SQ 10,000 UNITS/ML VIAL SQ SCH ×4 (07:09→23:56)
[2016-11-02 07:13] LABS: BICARBONATE 26.4 MEQ/L (21.0-32.0)
[2016-11-02] MEDS ORDERED: BUPIVACAINE HCL PF 0.25% 30 ML VIAL ONE (07:24)
[2016-11-02] MEDS ORDERED: GENTAMICIN SULFATE 80 MG/2 ML VIAL ONE (07:24)
--- NOTE | 2016-11-02 07:29 | HHI.PR ---
Subjective Remarks telemetry= paced rhythm overnight- no leg/foot pain vernight- right foot was placed on a soft cast last evening BS- [id number] Objective Vitals Vital Signs Date Time Temp Pulse Resp B/P (MAP) Pulse Ox O2 Delivery O2 Flow Rate FiO2 11/02/16 07:14 98.5 92 18 134/71 (92) 97 11/02/16 07:08 16 11/02/16 06:00 95 11/02/16 05:00 93 11/02/16 04:00 93 11/02/16 03:20 96 Nasal Cannula 2.00 11/02/16 03:20 98.4 94 18 144/69 (94) 96 11/02/16 03:00 99 11/02/16 02:00 97 11/02/16 01:00 97 11/02/16 00:00 98 11/01/16 23:30 96 Nasal Cannula 2.00 11/01/16 23:30 100.0 95 18 155/82 (106) 96 11/01/16 23:00 99 11/01/16 22:00 98 11/01/16 21:00 96 11/01/16 20:50 93 Nasal Cannula 2.00 11/01/16 20:30 98.2 98 18 147/82 (103) 95 11/01/16 20:30 95 Nasal Cannula 2.00 11/01/16 20:00 96 11/01/16 19:00 93 11/01/16 18:00 92 11/01/16 17:00 88 11/01/16 16:30 90 11/01/16 16:28 98.2 91 16 117/65 (82) 97 11/01/16 16:00 Nasal Cannula 2.00 11/01/16 15:00 86 11/01/16 14:00 86 11/01/16 13:03 16 11/01/16 13:00 94 11/01/16 12:18 98.2 91 18 133/68 (89) 97 11/01/16 12:00 92 11/01/16 12:00 Nasal Cannula 2.00 11/01/16 11:00 90 11/01/16 10:00 96 11/01/16 09:06 96 Nasal Cannula 2.00 11/01/16 09:00 94 11/01/16 08:00 Nasal Cannula 2.00 11/01/16 08:00 98.0 92 18 140/83 (102) 96 11/01/16 08:00 92 11/01/16 07:45 Nasal Cannula 2.00 I/O 11/01/16 11/01/16 11/01/16 11/02/16 11/02/16 11/02/16 06:59 14:59 22:59 06:59 14:59 22:59 Intake Total 480 ml 150 ml 900 ml 700 ml Output Total 900 ml 550 ml 1850 ml Balance -420 ml 150 ml 350 ml -1150 ml Intake Oral 480 ml 750 ml 700 ml IV Total 0 ml 150 ml 150 ml Output Urine Total 900 ml 550 ml 1850 ml # Bowel Movements 0 0 1 Result Diagram: 11/01/16 0554 11/02/16 0545 Imaging Last Impressions Tibia/Fibula X-Ray 11/01/16 0000 Signed Impressions: Service Date/Time: October 17:47 - CONCLUSION: 1. There is an oblique minimally displaced distal fibular fracture and displaced transverse medial malleolus fracture. 2. Diffuse subcutaneous edema of the right lower extremity. Myles Thomas MD Lower Extremity Ultrasound 11/01/16 0000 Signed Impressions: Service Date/Time: October 18:10 - CONCLUSION: No DVT is identified within either lower extremity. Myles Thomas MD Foot X-Ray 11/01/16 0000 Signed Impressions: Service Date/Time: October 17:55 - CONCLUSION: 1. There is a distal fibula and medial malleolus fracture. These are further described on the leg x-ray report. 2. Diffuse undermineralization of the bones with diffuse subcutaneous edema. Myles Thomas MD Chest X-Ray 10/29/16 0000 Signed Impressions: Service Date/Time: Saturday, October 29, 2016 17:29 - CONCLUSION: 1. Adequate placement of pacemaker. There is limited visualization of all leads. 2. No pneumothorax. cJ Strauss MD Objective Remarks awake and alert, not in acute distress no wheezes regular rhythm- paced rhythm abdomen - flabby, soft horta in place extremities - right LE- with soft cast/bandage in place Urinary Catheter: Yes Assessment to: Continue Horta insert reason: Surgical/Invasive Proced Date of Insertion: Oct 27, 2016 A/P Assessment and Plan 61 years old male Toxic metabolic encephalopathy resolved History of cataracts Edentulous Diabetic Peripheral neuropathy Acetaminophen 500 mg every 4 hours. Pain 127/fever Increase gabapentin 300 mg 3 times a day. RESP: S/P Acute hypercapnic respiratory failure Pulmonary edema (improved) Prior tobaccoism TRACY -no CPAP due to claustrophobia Document patient COPD/asthma Nasal cannula to maintain saturations greater than equal to 92% Incentive spirometry while awake Scheduled albuterol/ipratropium every 6 hours with albuterol nebulizers every 2 hours. Dyspnea A cappella every 6 hours Follow-up on chest x-ray 10/29 post BIV/ICD revealed no pneumothorax. S/P Third degree heart block status post transvenous VVI pacer - removed Cardiogenic shock secondary to third degree heart block, improved Chronic systolic and diastolic heart failure secondary to ischemic cardiomyopathy Left bundle branch block CAD with prior stents history Peripheral arterial disease status post stent 2 right lower extremity Dyslipidemia Hypertension Elevated troponin Carvedilol 3.125 mg twice a day Holding lisinopril 10 mg daily due to hypotension Continue atorvastatin 80 mg by mouth daily for dyslipidemia Continue bumetanide 1 mg IV twice a day. On 1 mg by mouth twice a day at home. Resuming spironolactone 25 mg daily. At home on spironolactone 25 mg twice daily Restarted aspirin 81 mg by mouth daily Currently off clopidogrel 75 mg daily. Resume when clinically indicated in a.m. 2D -Echo 06/18/16 ejection fraction 30-35% LV dysfunction. Grade 1 diastolic dysfunction. Dilated LV/mild LVH 01/15/14 cardiac catheterization with MARYAM to circumflex Right displaced tbular fracture and displaced right Malleolar fracture -Ortho taking her to OR now for open reduction 11/02 Acute allergic reaction- I am thinking it is from Lortab- + allergy to codeine- Resolved - DC Lortab Chronic pain neuropathic- complain of increase pain.muscle aches, rashes - Increase gabapendtin --Soma 350 mg po tid- first dose now Gastroesophageal reflux disease Currently on 1800 ADA diet On omeprazole 20 mg by mouth daily at home. Protonix 20 no grams by mouth daily here Bowel regimen with docusate sodium/senna 1 tablet twice a day. Added polyethylene glycol 3350 17 g twice a day lactulose 4 times a day with glycerin suppositories as needed twice daily /FEN/RENAL: Acute kidney injury in the setting of Chronic kidney disease stage IIIb Horta in place. Monitor intake and output. Monitor electrolytes and replace as indicated. AM laboratories are pending ID: [id number] - Enteroccoccus faecalis Left leg cellulitis- ff exam MSSA, strep pneumonia doppler- negative for DVT Treatment with levofloxacin 5 days. GFR currently 55 so 750 mg IV every 24 hours 5 days Pertinent cultures UA - 10/27 - Enterococcus faecalis sensitive to ciprofloxacin Blood cultures 2 - 10/27 - no growth Sputum - 10/28 -MSSA, beta strep not a HEME: Leukocytosis History DVT right leg Follow CBC daily. Monitor trends. No indication for transfusion of blood proximal at this time get doppler us of legs-negative for DVT ENDO: Hyperosmolar hyperglycemic state, resolved Diabetes mellitus Currently on insulin detemir 35 bid . Medium regimen Novulog sliding scale with Accu-Cheks before meals/at bedtime and O300 At home on insulin glargine 75 units twice a day and insulin aspart 48 units subcutaneous 3 times a day PROPH: GI - pantoprazole 40 mg daily DVT - 10/31 with heparin subcutaneous Incentive spirometry post op Access - utilize peripheral IV. Central line if indicated Riddhi Davila MD Nov 02, 2016 07:28
[2016-11-02] MEDS ORDERED: VANCOMYCIN HCL 1000 MG VIAL ONE (08:31)
[2016-11-02] MEDS ORDERED: CLINDAMYCIN PHOS 900 MG/6 ML VIAL ONE (08:34)
[2016-11-02] MEDS ORDERED: CLINDAMYCIN PHOS 600 MG/4 ML VIAL ONE (08:35)
[2016-11-02] MEDS ORDERED: FAMOTIDINE 20 MG/2 ML VIAL ONE (08:45)
[2016-11-02] MEDS ORDERED: MIDAZOLAM HCL 2 MG/2 ML VIAL ONE (08:45)
[2016-11-02] MEDS: CARVEDILOL 3.125 MG TAB PO SCH ×2 (09:00→21:15)
[2016-11-02] MEDS: INSULIN DETEMIR 100 UNITS/ML VIAL SQ SCH ×2 (09:00→21:00)
[2016-11-02] MEDS: SPIRONOLACTONE 25 MG TAB PO SCH (09:00)
[2016-11-02] MEDS: ATORVASTATIN 80 MG TAB PO SCH (09:00)
[2016-11-02] MEDS: SODIUM CHLORIDE 0.9% FLUSH 10 ML FLUSH IV FLUSH SCH ×2 (09:00→21:16)
[2016-11-02] MEDS: DOCUSATE SODIUM 50 MG/SENNA 8.6 MG TAB PO SCH ×2 (09:00→21:00)
[2016-11-02] MEDS: ASPIRIN 81 MG CHEW TAB CHEW SCH (09:00)
[2016-11-02] MEDS: LACTULOSE SYRUP 20 GM/30 ML CUP PO SCH ×4 (09:00→21:00)
[2016-11-02] MEDS: CLOPIDOGREL 75 MG TAB PO SCH (09:00)
[2016-11-02] MEDS: POLYETHYLENE GLYCOL 17 GM PKG NG SCH ×2 (09:00→21:00)
[2016-11-02] MEDS: PANTOPRAZOLE SOD 20 MG DELAYED RELEASE TAB PO SCH (09:00)
[2016-11-02] MEDS ORDERED: ACETAMINOPHEN 1000 MG/100 ML 100 ML IV ONE (09:48)
--- NOTE | 2016-11-02 11:28 | PD.OP ---
cc: Jhonatan Hardin MD Operative Report Date of Surgery: Nov 02, 2016 Preoperative Diagnosis: Displaced right ankle bimalleolar fracture Postoperative Diagnosis: Procedure: Open reduction internal fixation right ankle bimalleolar fracture Anesthesia: Gen. Surgeon: Jhonatan Hardin Cigarette Inspector(s): Tesfaye Torres PA-C The surgical procedure was assisted by my physician assistant professor of business. My P.A. presence was necessary throughout this case for the manipulation and positioning of the surgical extremity. My P.A. was assisting me throughout the duration of this procedure. The skill set of a physician assistant professor of business was medically necessary to complete this procedure. During the surgical case the surgical garment assembly supervisor was working at the back table and the physician assistant professor of business was directly assisting me. Operation and Findings: Patient was seen and evaluated preoperatively and found to have a displaced right bimalleolar ankle fracture. Informed consent was obtained after a detailed discussion of risk and benefits of surgery. The operative site was marked. Patient was brought to the OR, placed on the OR table, and given IV sedation and general endotracheal anesthesia. IV antibiotics were given preoperatively. A timeout procedure was performed. The left leg was prepped with alcohol followed by Hibiclens and draped in the usual sterile fashion. Attention was turned towards the distal fibula. A four-inch incision was made over the distal fibula. The subcutaneous tissue was dissected with Bovie. The fracture site was visualized. The fracture site was cleaned with curets. The fracture was now reduced. The fracture keyed into anatomic alignment. K-wires were used to h old provisional fixation. A lag screw was placed to compress fracture. A Synthes plate was selected. The plate was provisionally held to bone with K-wires. 3.5 cortical screws were used to compress the plate to bone. Multiple screws were placed above and below the fracture. Next attention was turned towards the medial malleolus. Because of patient's diabetes and peripheral last disease, percutaneous technique was utilized. Fracture was now reduced through 2 small incisions. Fracture keyed into anatomic alignment. K wires were used to hold provisional fixation. 2 guidepins for the 4.0 cannulated screws were placed in a retrograde fashion across the fracture. Fluoroscopy was used to confirm guidepin placement. Cannulated drill was placed over the guidepin. 2 appropriate length screws were now placed. Good compression was applied. Fluoroscopy confirmed well aligned fracture with well-placed hardware. Next, attention was turned to the syndesmosis. The syndesmosis was stressed. There was no widening of the syndesmosis with external rotation of the ankle. Incisions were thoroughly irrigated. The subcutaneous tissue was closed with 3- 0 Vicryl and the skin was closed with 3-0 nylon. Sterile dressings were applied. A well molded well-padded splint was applied. The patient was transferred to Recovery in stable condition. Needle and sponge counts were correct. Jhonatan Hardin MD Nov 02, 2016 11:28
--- NOTE | 2016-11-02 11:29 | PD.ORT.PN ---
Subjective Subjective Remarks Postop day 0 status post ORIF right ankle bimalleolar fracture Objective Vitals Vital Signs Date Time Temp Pulse Resp B/P (MAP) Pulse Ox O2 Delivery O2 Flow Rate FiO2 11/02/16 07:52 89 11/02/16 07:30 Nasal Cannula 2.00 11/02/16 07:14 98.5 92 18 134/71 (92) 97 11/02/16 07:08 16 11/02/16 06:00 95 11/02/16 05:00 93 11/02/16 04:00 93 11/02/16 03:20 96 Nasal Cannula 2.00 11/02/16 03:20 98.4 94 18 144/69 (94) 96 11/02/16 03:00 99 11/02/16 02:00 97 11/02/16 01:00 97 11/02/16 00:00 98 11/01/16 23:30 96 Nasal Cannula 2.00 11/01/16 23:30 100.0 95 18 155/82 (106) 96 11/01/16 23:00 99 11/01/16 22:00 98 11/01/16 21:00 96 11/01/16 20:50 93 Nasal Cannula 2.00 11/01/16 20:30 98.2 98 18 147/82 (103) 95 11/01/16 20:30 95 Nasal Cannula 2.00 11/01/16 20:00 96 11/01/16 19:00 93 11/01/16 18:00 92 11/01/16 17:00 88 11/01/16 16:30 90 11/01/16 16:28 98.2 91 16 117/65 (82) 97 11/01/16 16:00 Nasal Cannula 2.00 11/01/16 15:00 86 11/01/16 14:00 86 11/01/16 13:03 16 11/01/16 13:00 94 11/01/16 12:18 98.2 91 18 133/68 (89) 97 11/01/16 12:00 92 11/01/16 12:00 Nasal Cannula 2.00 I/O 11/01/16 11/01/16 11/01/16 11/02/16 11/02/16 11/02/16 07:00 15:00 23:00 07:00 15:00 23:00 Intake Total 480 ml 150 ml 900 ml 700 ml Output Total 900 ml 550 ml 1850 ml Balance -420 ml 150 ml 350 ml -1150 ml Intake Oral 480 ml 750 ml 700 ml IV Total 0 ml 150 ml 150 ml Output Urine Total 900 ml 550 ml 1850 ml # Bowel Movements 0 0 1 Result Diagram: 11/01/16 0554 11/02/16 0545 Objective Remarks Clean dry dressing intact. Well molded well-padded splint in place. Good capillary refill in toes. Assessment & Plan Assessment and Plan Continue medical management of diabetes and cardiac arrhythmia Strict nonweightbearing right leg Elevate right foot Case management for discharge planning home versus rehab Follow-up with Dr. Hardin in 2 weeks Jhonatan Hardin MD Nov 02, 2016 11:29
[2016-11-02] MEDS ORDERED: Post-op Orders (for Pharmacy) MISC XX ONE ×2 (11:30→11:46)
[2016-11-02] MEDS ORDERED: fentaNYL CITRATE 250 MCG/5 ML AMP ONE (11:43)
[2016-11-02] MEDS ORDERED: INSULIN HUMAN REGULAR 1,000 UNITS/10 ML VIAL IV PUSH ONE (12:00)
[2016-11-02] MEDS ORDERED: ONDANSETRON HCL 4 MG/2 ML VIAL IV PUSH ONE (12:00)
[2016-11-02] MEDS ORDERED: PROPOFOL 200 MG/20 ML AMP IV ONE (12:00)
[2016-11-02] MEDS ORDERED: NEOSTIGMINE 3 MG/3 ML SYR IV ONE (12:00)
[2016-11-02] MEDS ORDERED: PHENYLEPH/NS 1000 MCG/10 ML SYR IV ONE (12:00)
[2016-11-02] MEDS ORDERED: TRAM50TA PO (12:01)
[2016-11-02] MEDS ORDERED: *PROMETHAZINE 25 MG/ML VIAL PERIprocedural use ONLY ONE (12:34)
[2016-11-02] MEDS: LEVOFLOXACIN 750 MG PREMIX INJ 150 ML IV SCH (13:04)
--- NOTE | 2016-11-02 13:36 | RADRPT ---
EXAM DATE/TIME: 11/02/2016 11:03 [facility] COMPARISON: No previous studies available for comparison. INDICATIONS : Right ankle open reduction internal fixation. MEDICAL HISTORY : Myocardial infarction. Congestive heart failure. Hypercholesterolemia. CataractsPeripheral neuropathy . Head trauma. Migraine. Numbness. Anticoagulant therapy, plavix. COPD. Snoring. Sleep apnea. Gastroe sophageal reflux disorder. Renal failure. Arthritis.Diabetes. SURGICAL HISTORY : Tonsillectomy.Cholecystectomy. Bilateral cataract surgery. Coronary stents. Cardiac Catheterization. Cyst removal from buttocks. ENCOUNTER: Subsequent ACUITY: 1 day PAIN SCORE: Non-responsive. LOCATION: Right ankle FINDINGS: 2 magnified C-arm spot views are centered over the ankle joint and labeled right. An orthopedic plate is seen along the lateral cortical margin of the distal fibula with multiple anchoring screws. 2 ort hopedic screws are seen traversing the medial malleolus. Good alignment seen at both locations. CONCLUSION: Limited images as detailed above. Unruly Bronson Jr., MD on November 02, 2016 at 13:34 Board Certified Radiologist. This report was verified electronically.
[2016-11-02] MEDS: GABAPENTIN 300 MG CAP PO SCH ×2 (14:50→17:48)
--- NOTE | 2016-11-02 15:36 | OTSOAPIP ---
TIME SESSION COMPLETED: AM/PM TREATMENT TIME: 0 MINS. CHART REVIEWED. ATTEMPTED TO EVALUATE PATIENT HOWEVER PATIENT WAS NOT AVAILABLE DUE TO BEING INVOLVED IN A SURGICAL PROCEDURE AND BEING OFF THE UNIT PLAN: WILL SEE PATIENT NEXT TREATMENT DAY Therapist: ANDI JORDAN/David Signature on file
[2016-11-02] MEDS: MORPHINE SULFATE 4 MG/ML INJ IV PUSH PRN ×2 (15:41→21:17)
[2016-11-02] MEDS: BUMETANIDE INJ 1 MG/4 ML VIAL IV PUSH SCH (17:48)
[2016-11-02] MEDS ORDERED: ceFAZolin 2 GM PREMIX 50 ML IV SCH (18:00)
[2016-11-02] MEDS: RESP: ALBUTEROL 2.5 MG/3 ML NEB (PRN) NEB (18:16)
[2016-11-02] MEDS: diphenhydrAMINE HCL 50 MG/ML VIAL IV PRN (21:16)
[2016-11-03] VITALS (8 sets, daily range): BP systolic 106–129; BP diastolic 51–74; PULSE 81–97; RESP 16–21; TEMP 97.2–99.4; O2SAT 90–97
[2016-11-03] MEDS: RESP: ALBUTEROL 2.5 MG/3 ML NEB (PRN) NEB (01:38)
[2016-11-03] MEDS: MORPHINE SULFATE 4 MG/ML INJ IV PUSH PRN ×6 (01:38→21:59)
[2016-11-03] MEDS: INSULIN ASPART SUPPLEMENTAL SCALE SQ SCH ×5 (03:00→20:42)
[2016-11-03] MEDS: CHLORHEXIDINE GLUCONATE 2 % 1 PACK (2 CLOTHS) TOP SCH (03:17)
[2016-11-03] MEDS: CARISOPRODOL 350 MG TAB PO SCH ×3 (05:26→20:38)
[2016-11-03] MEDS: RESP: ALBUTEROL 2.5 MG/IPRATROPIUM 0.5 MG NEB (SCH) NEB ×2 (05:52→09:09)
[2016-11-03] MEDS: CHLORHEXIDINE 0.12% (ORAL KIT) 15 ML CUP MT SCH ×2 (08:00→20:00)
--- NOTE | 2016-11-03 08:14 | PD.ORT.PN ---
Subjective Subjective Remarks Laying in bed. Painful right ankle. Right hip externally rotated. States her ankle hurts but has no other complaints. Notes loss of sensation both feet due to history of neuropathy. No c/o CP or SOB. Objective Vitals Vital Signs Date Time Temp Pulse Resp B/P (MAP) Pulse Ox O2 Delivery O2 Flow Rate FiO2 11/03/16 04:00 97.2 83 19 121/58 (79) 97 11/03/16 00:05 99.1 97 21 106/57 (73) 96 11/02/16 23:00 90 11/02/16 20:59 93 Nasal Cannula 3.00 11/02/16 20:00 93 Nasal Cannula 3.00 11/02/16 20:00 97.6 93 19 140/64 (89) 96 11/02/16 18:16 96 Nasal Cannula 2.00 11/02/16 16:00 97.8 93 20 154/72 (99) 93 11/02/16 15:49 18 11/02/16 15:49 18 11/02/16 14:28 97.9 89 20 126/58 (80) 94 11/02/16 13:50 91 16 98 Nasal Cannula 3 11/02/16 13:30 97.6 90 16 130/68 (88) 98 Nasal Cannula 3 11/02/16 13:15 90 16 132/67 (88) 98 Nasal Cannula 3 11/02/16 13:00 89 16 128/68 (88) 97 Nasal Cannula 3 11/02/16 12:45 88 15 129/65 (86) 97 Nasal Cannula 3 11/02/16 12:30 89 15 135/60 (85) 97 Nasal Cannula 3 11/02/16 12:15 90 15 144/68 (93) 97 Nasal Cannula 3 11/02/16 12:00 91 15 147/69 (95) 96 Nasal Cannula 3 11/02/16 11:50 96 14 169/78 (108) 96 Nasal Cannula 3 11/02/16 11:45 97.9 97 16 181/78 (112) 99 Simple Mask 7 I/O 11/02/16 11/02/16 11/02/16 11/03/16 11/03/16 11/03/16 07:00 15:00 23:00 07:00 15:00 23:00 Intake Total 700 ml 1150 ml 360 ml 360 ml Output Total 1850 ml 700 ml 1200 ml 1600 ml Balance -1150 ml 450 ml -840 ml -1240 ml Intake Oral 700 ml 360 ml 360 ml IV Total 100 ml Other 1050 ml Output Urine Total 1850 ml 650 ml 1200 ml 1600 ml Estimated Blood Loss 50 ml # Bowel Movements 1 0 0 Result Diagram: 11/01/16 0554 11/02/16 0545 Objective Remarks Laying supine, No acute distress Nasal cannula RLE Splint/Dressing intact, some swelling toes, Wiggles toes freely, mild loss sensation toes (equal bilat) Cap refill less than 2 seconds great toe Assessment & Plan Ortho Post Op Day #: 1 Problem List: Assessment and Plan pod#1 ORIF Right ankle Continue medical management of diabetes and cardiac arrhythmia Maintain right leg splint and dressing PT - Strict nonweightbearing right leg. Elevate right foot when in bed. Ice bid right foot. Case management for discharge planning home versus rehab. She states she lives at home, first floor and has 2 room mates. Follow-up with Dr. Hardin in 2 weeks Mary Dailey Nov 03, 2016 08:14
[2016-11-03] MEDS: BUMETANIDE INJ 1 MG/4 ML VIAL IV PUSH SCH (08:44)
[2016-11-03] MEDS: CLOPIDOGREL 75 MG TAB PO SCH (08:44)
[2016-11-03] MEDS: SODIUM CHLORIDE 0.9% FLUSH 10 ML FLUSH IV FLUSH SCH ×2 (08:44→20:45)
[2016-11-03] MEDS: HEPARIN SODIUM - SQ 10,000 UNITS/ML VIAL SQ SCH ×3 (08:44→23:25)
[2016-11-03] MEDS: GABAPENTIN 300 MG CAP PO SCH ×3 (08:44→17:09)
[2016-11-03] MEDS: PANTOPRAZOLE SOD 20 MG DELAYED RELEASE TAB PO SCH (08:45)
[2016-11-03] MEDS: SPIRONOLACTONE 25 MG TAB PO SCH (08:45)
[2016-11-03] MEDS: CARVEDILOL 3.125 MG TAB PO SCH ×2 (08:45→20:38)
[2016-11-03] MEDS: POLYETHYLENE GLYCOL 17 GM PKG NG SCH ×2 (08:45→20:45)
[2016-11-03] MEDS: LACTULOSE SYRUP 20 GM/30 ML CUP PO SCH ×5 (08:45→20:46)
[2016-11-03] MEDS: ATORVASTATIN 80 MG TAB PO SCH (08:45)
[2016-11-03] MEDS: ASPIRIN 81 MG CHEW TAB CHEW SCH (08:46)
[2016-11-03] MEDS: INSULIN DETEMIR 100 UNITS/ML VIAL SQ SCH ×2 (08:46→20:41)
[2016-11-03] MEDS: DOCUSATE SODIUM 50 MG/SENNA 8.6 MG TAB PO SCH ×2 (08:46→20:45)
--- NOTE | 2016-11-03 08:54 | HHI.PR ---
Subjective Remarks no pain/post op complains had a good night no nausea or vomiting Objective Vitals Vital Signs Date Time Temp Pulse Resp B/P (MAP) Pulse Ox O2 Delivery O2 Flow Rate FiO2 11/03/16 04:00 97.2 83 19 121/58 (79) 97 11/03/16 00:05 99.1 97 21 106/57 (73) 96 11/02/16 23:00 90 11/02/16 20:59 93 Nasal Cannula 3.00 11/02/16 20:00 93 Nasal Cannula 3.00 11/02/16 20:00 97.6 93 19 140/64 (89) 96 11/02/16 18:16 96 Nasal Cannula 2.00 11/02/16 16:00 97.8 93 20 154/72 (99) 93 11/02/16 15:49 18 11/02/16 15:49 18 11/02/16 14:28 97.9 89 20 126/58 (80) 94 11/02/16 13:50 91 16 98 Nasal Cannula 3 11/02/16 13:30 97.6 90 16 130/68 (88) 98 Nasal Cannula 3 11/02/16 13:15 90 16 132/67 (88) 98 Nasal Cannula 3 11/02/16 13:00 89 16 128/68 (88) 97 Nasal Cannula 3 11/02/16 12:45 88 15 129/65 (86) 97 Nasal Cannula 3 11/02/16 12:30 89 15 135/60 (85) 97 Nasal Cannula 3 11/02/16 12:15 90 15 144/68 (93) 97 Nasal Cannula 3 11/02/16 12:00 91 15 147/69 (95) 96 Nasal Cannula 3 11/02/16 11:50 96 14 169/78 (108) 96 Nasal Cannula 3 11/02/16 11:45 97.9 97 16 181/78 (112) 99 Simple Mask 7 I/O 11/02/16 11/02/16 11/02/16 11/03/16 11/03/16 11/03/16 06:59 14:59 22:59 06:59 14:59 22:59 Intake Total 700 ml 1150 ml 360 ml 360 ml Output Total 1850 ml 700 ml 1200 ml 1600 ml Balance -1150 ml 450 ml -840 ml -1240 ml Intake Oral 700 ml 360 ml 360 ml IV Total 100 ml Other 1050 ml Output Urine Total 1850 ml 650 ml 1200 ml 1600 ml Estimated Blood Loss 50 ml # Bowel Movements 1 0 0 Result Diagram: 11/01/16 0554 11/02/16 0545 Imaging Last Impressions Ankle X-Ray 11/02/16 0000 Signed Impressions: Service Date/Time: Wednesday, November 02, 2016 11:03 - CONCLUSION: Limited images as detailed above. Unruly Bronson Jr., MD Tibia/Fibula X-Ray 11/01/16 0000 Signed Impressions: Service Date/Time: October 17:47 - CONCLUSION: 1. There is an oblique minimally displaced distal fibular fracture and displaced transverse medial malleolus fracture. 2. Diffuse subcutaneous edema of the right lower extremity. Myles Thomas MD Lower Extremity Ultrasound 11/01/16 0000 Signed Impressions: Service Date/Time: October 18:10 - CONCLUSION: No DVT is identified within either lower extremity. Myles Thomas MD Foot X-Ray 11/01/16 0000 Signed Impressions: Service Date/Time: October 17:55 - CONCLUSION: 1. There is a distal fibula and medial malleolus fracture. These are further described on the leg x-ray report. 2. Diffuse undermineralization of the bones with diffuse subcutaneous edema. Myles Thomas MD Chest X-Ray 10/29/16 0000 Signed Impressions: Service Date/Time: Saturday, October 29, 2016 17:29 - CONCLUSION: 1. Adequate placement of pacemaker. There is limited visualization of all leads. 2. No pneumothorax. Jc Strauss MD Objective Remarks awake and alert, not in acute distress no wheezes left chest wall- sterikle strips in place )AICD site) no erythema regular rhythm- paced rhythm abdomen - flabby, soft horta in place extremities -- post op dressing in place, Procedures 11/02- S/P ORIF right ankle bimalleolar fracture Horta insert reason: Surgical/Invasive Proced Date of Insertion: Oct 27, 2016 A/P Assessment and Plan 61 years old male Toxic metabolic encephalopathy RESOLVED History of cataracts Edentulous Diabetic Peripheral neuropathy Acetaminophen 500 mg every 4 hours. Pain 127/fever Increase gabapentin 300 mg 3 times a day. S/P ORIF right bimalleolar ankle fracture- 11/02 -Ortho ff - PT ff non weightbearing right leg. elevate right leg when in bed - IV mOprhine prn for pain - S/P Acute hypercapnic respiratory failure Pulmonary edema (improved) Prior tobaccoism TRACY -no CPAP due to claustrophobia Document patient COPD/asthma Nasal cannula to maintain saturations greater than equal to 92% Incentive spirometry while awake Scheduled albuterol/ipratropium every 6 hours with albuterol nebulizers every 2 hours. Dyspnea A cappella every 6 hours Follow-up on chest x-ray 10/29 post BIV/ICD revealed no pneumothorax. Levaquin till 11/05 S/P Third degree heart block status post transvenous VVI pacer - removed Cardiogenic shock secondary to third degree heart block, improved Chronic systolic and diastolic heart failure secondary to ischemic cardiomyopathy Left bundle branch block CAD with prior stents history Peripheral arterial disease status post stent 2 right lower extremity Dyslipidemia Hypertension Elevated troponin Carvedilol 3.125 mg twice a day Holding lisinopril 10 mg daily due to hypotension- restart low dose- 2.5 mg po daily Continue atorvastatin 80 mg by mouth daily for dyslipidemia Continue bumetanide 1 mg IV twice a day- change to po. On 1 mg by mouth twice a day at home. Resuming spironolactone 25 mg daily. At home on spironolactone 25 mg twice daily Onaspirin 81 mg by mouth daily. clopidogrel 75 mg daily 2D -Echo 06/18/16 ejection fraction 30-35% LV dysfunction. Grade 1 diastolic dysfunction. Dilated LV/mild LVH 01/15/14 cardiac catheterization with MARYAM to circumflex Acute allergic reaction- I am thinking it is from Lortab- + allergy to codeine- Resolved - DC Lortab Chronic pain neuropathic- complain of increase pain.muscle aches, rashes - Increase gabapendtin --Soma 350 mg po tid- first dose now Gastroesophageal reflux disease Currently on 1800 ADA diet On omeprazole 20 mg by mouth daily at home. Protonix 20 no grams by mouth daily here Bowel regimen with docusate sodium/senna 1 tablet twice a day. Added polyethylene glycol 3350 17 g twice a day lactulose 4 times a day with glycerin suppositories as needed twice daily /FEN/RENAL: Acute kidney injury in the setting of Chronic kidney disease stage IIIb Horta in place. - DC in am when up with PT Monitor intake and output. Monitor electrolytes and replace as indicated. renal functions stable ID: UTI - Enteroccoccus faecalis Left leg cellulitis- ff exam MSSA, strep pneumonia doppler- negative for DVT Treatment with levofloxacin 5 days. GFR currently 55 so 750 mg IV every 24 hours 5 days Pertinent cultures UA - 10/27 - Enterococcus faecalis sensitive to ciprofloxacin Blood cultures 2 - 10/27 - no growth Sputum - 10/28 -MSSA, beta strep not a HEME: Leukocytosis History DVT right leg Follow CBC daily. Monitor trends. No indication for transfusion of blood proximal at this time get doppler us of legs-negative for DVT ENDO: Hyperosmolar hyperglycemic state, resolved Diabetes mellitus restarted on insulin detemir - up to 40 units bid . Medium regimen Novulog sliding scale with Accu-Cheks before meals/at bedtime and O300. MOnitor and adjust At home on insulin glargine 75 units twice a day and insulin aspart 48 units subcutaneous 3 times a day PROPH: GI - pantoprazole 40 mg daily DVT - 10/31 with heparin subcutaneous Incentive spirometry post op DC planning- SNF vs home with OP or home PT Riddhi Davila MD Nov 03, 2016 08:54
[2016-11-03] MEDS ORDERED: PILL SPLITTER OTHER PRN (09:30)
[2016-11-03] MEDS: LISINOPRIL 5 MG TAB PO SCH (09:50)
[2016-11-03] MEDS: diphenhydrAMINE HCL 50 MG/ML VIAL IV PRN ×2 (11:43→20:38)
[2016-11-03] MEDS: LEVOFLOXACIN 750 MG PREMIX INJ 150 ML IV SCH (11:55)
[2016-11-03] MEDS: BUMETANIDE 1 MG TAB PO SCH (17:09)
[2016-11-04] VITALS (8 sets, daily range): BP systolic 97–127; BP diastolic 53–76; PULSE 75–88; RESP 16–20; TEMP 97.9–99.5; O2SAT 92–97
[2016-11-04] MEDS: RESP: ALBUTEROL 2.5 MG/3 ML NEB (PRN) NEB (01:36)
[2016-11-04] MEDS: MORPHINE SULFATE 4 MG/ML INJ IV PUSH PRN ×6 (02:00→23:02)
[2016-11-04] MEDS: NYSTAT/DIPHENHY/LIDO MOUTHWASH (Adult) 120ML SWISH-SWAL SCH ×5 (02:02→19:55)
--- NOTE | 2016-11-04 02:02 | RADRPT ---
EXAM DATE/TIME: 11/04/2016 01:34 [facility] COMPARISON: CHEST SINGLE AP, October 29, 2016, 17:29. INDICATIONS : Shortness of breath. MEDICAL HISTORY : Myocardial infarction. Congestive heart failure. Hypercholesterolemia. COPD SURGICAL HISTORY : Tonsillectomy. Cholecystectomy. Coronary artery stent. ENCOUNTER: Initial ACUITY: 1 day PAIN SCORE: 0/10 LOCATION: Bilateral chest FINDINGS: A single view of the chest demonstrates the lungs to be symmetrically aerated without evidence of mas s, or effusion. Left subclavian pacemaker in good position. Mild bibasilar atelectasis The cardiome diastinal contours are unremarkable. Osseous structures are intact. CONCLUSION: Normal examination with a pacemaker and mild bibasilar atelectasis. Aston Lopez MD on November 04, 2016 at 2:00 Board Certified Radiologist. This report was verified electronically.
[2016-11-04] MEDS: INSULIN ASPART SUPPLEMENTAL SCALE SQ SCH ×5 (02:11→20:00)
[2016-11-04] MEDS: CHLORHEXIDINE GLUCONATE 2 % 1 PACK (2 CLOTHS) TOP SCH (03:22)
[2016-11-04] MEDS ORDERED: RESP: ALBUTEROL 2.5 MG/IPRATROPIUM 0.5 MG NEB (SCH) NEB (04:00)
[2016-11-04] MEDS: CARISOPRODOL 350 MG TAB PO SCH ×3 (05:46→23:02)
[2016-11-04 07:13] LABS: BICARBONATE 30.2 MEQ/L (21.0-32.0); POTASSIUM 4.4 MEQ/L (3.5-5.1)
[2016-11-04] MEDS: CHLORHEXIDINE 0.12% (ORAL KIT) 15 ML CUP MT SCH ×2 (08:00→19:55)
--- NOTE | 2016-11-04 08:19 | PD.ORT.PN ---
Subjective Subjective Remarks Laying in bed. States she had a 'hard time last night'. [place] as though she was not 'breathing as well'. Apparently chest xray ordered. Using nasal cannula. States right ankle still painful but no worse than yesterday. No new leg pain. Again refers to some loss of sensation both feet due to history of neuropathy. Objective Vitals Vital Signs Date Time Temp Pulse Resp B/P (MAP) Pulse Ox O2 Delivery O2 Flow Rate FiO2 11/04/16 07:00 16 11/04/16 06:00 18 11/04/16 03:04 99.0 82 20 118/53 (74) 94 11/04/16 01:37 95 Nasal Cannula 3.00 11/04/16 00:00 99.5 87 18 97/54 (68) 93 11/03/16 23:00 94 11/03/16 20:00 Nasal Cannula 3.00 11/03/16 20:00 98.8 94 19 106/51 (69) 95 11/03/16 16:00 98.7 87 16 118/60 (79) 90 11/03/16 12:00 97.4 87 17 115/74 (88) 95 11/03/16 09:10 97 Nasal Cannula 3.00 I/O 11/03/16 11/03/16 11/03/16 11/04/16 11/04/16 11/04/16 07:00 15:00 23:00 07:00 15:00 23:00 Intake Total 360 ml 150 ml 740 ml 240 ml Output Total 1600 ml 1500 ml 700 ml Balance -1240 ml 150 ml -760 ml -460 ml Intake Oral 360 ml 740 ml 240 ml IV Total 150 ml Output Urine Total 1600 ml 1500 ml 700 ml # Bowel Movements 0 0 0 Result Diagram: 11/01/16 0554 11/04/16 0550 Imaging Last 24 hours Impressions Chest X-Ray 11/04/16 0000 Signed Impressions: Service Date/Time: Friday, November 04, 2016 01:34 - CONCLUSION: Normal examination with a pacemaker and mild bibasilar atelectasis. Aston Lopez MD Objective Remarks Laying supine, No acute distress Nasal cannula RLE Splint/Dressing intact, some swelling toes, Wiggles toes freely, mild loss sensation toes (equal bilat) Cap refill less than 2 seconds great toe Assessment & Plan Ortho Post Op Day #: 2 Problem List: Assessment and Plan pod#2 ORIF Right ankle Continue medical management. Last WBC was 9.3. Chest xray shows bilat atelectasis. Encouraged IS and out of bed to chair. Maintain right leg splint and dressing PT - Strict nonweightbearing right leg. Elevate right foot when in bed. Ice bid right foot. Case management for discharge planning home versus rehab. She states she lives at home, first floor and has 2 room mates. Follow-up with Dr. Hardin in 2 weeks Mary Dailey Nov 04, 2016 08:19
--- NOTE | 2016-11-04 08:30 | HHI.PR ---
Subjective Remarks motivated with physical therapy no pain complains from foot no nausea or vomiting d/w her- DC horta today - with increase activity Objective Vitals Vital Signs Date Time Temp Pulse Resp B/P (MAP) Pulse Ox O2 Delivery O2 Flow Rate FiO2 11/04/16 08:00 99.1 86 16 127/59 (81) 92 11/04/16 07:00 16 11/04/16 06:00 18 11/04/16 03:04 99.0 82 20 118/53 (74) 94 11/04/16 01:37 95 Nasal Cannula 3.00 11/04/16 00:00 99.5 87 18 97/54 (68) 93 11/03/16 23:00 94 11/03/16 20:00 Nasal Cannula 3.00 11/03/16 20:00 98.8 94 19 106/51 (69) 95 11/03/16 16:00 98.7 87 16 118/60 (79) 90 11/03/16 12:00 97.4 87 17 115/74 (88) 95 11/03/16 09:10 97 Nasal Cannula 3.00 I/O 11/03/16 11/03/16 11/03/16 11/04/16 11/04/16 11/04/16 07:00 15:00 23:00 07:00 15:00 23:00 Intake Total 360 ml 150 ml 740 ml 240 ml Output Total 1600 ml 1500 ml 700 ml Balance -1240 ml 150 ml -760 ml -460 ml Intake Oral 360 ml 740 ml 240 ml IV Total 150 ml Output Urine Total 1600 ml 1500 ml 700 ml # Bowel Movements 0 0 0 Result Diagram: 11/01/16 0554 11/04/16 0550 Imaging Last Impressions Chest X-Ray 11/04/16 0000 Signed Impressions: Service Date/Time: Friday, November 04, 2016 01:34 - CONCLUSION: Normal examination with a pacemaker and mild bibasilar atelectasis. Aston Lopez MD Ankle X-Ray 11/02/16 0000 Signed Impressions: Service Date/Time: Wednesday, November 02, 2016 11:03 - CONCLUSION: Limited images as detailed above. Unruly Bronson Jr., MD Tibia/Fibula X-Ray 11/01/16 0000 Signed Impressions: Service Date/Time: October 17:47 - CONCLUSION: 1. There is an oblique minimally displaced distal fibular fracture and displaced transverse medial malleolus fracture. 2. Diffuse subcutaneous edema of the right lower extremity. Myles Thomas MD Lower Extremity Ultrasound 11/01/16 0000 Signed Impressions: Service Date/Time: October 18:10 - CONCLUSION: No DVT is identified within either lower extremity. Myles Thomas MD Foot X-Ray 11/01/16 0000 Signed Impressions: Service Date/Time: October 17:55 - CONCLUSION: 1. There is a distal fibula and medial malleolus fracture. These are further described on the leg x-ray report. 2. Diffuse undermineralization of the bones with diffuse subcutaneous edema. Myles Thomas MD Objective Remarks awake and alert, not in acute distress, delightfully childlike no wheezes left chest wall- sterile strips in place- no erythema, no swelling regular rhythm- paced rhythm abdomen - flabby, soft horta in place extremities -- right LE -post op dressing in place/cast in place, Procedures 11/02- S/P ORIF right ankle bimalleolar fracture Urinary Catheter: Yes Assessment to: Remove Date of Insertion: Oct 27, 2016 Date of Removal: Nov 04, 2016 A/P Assessment and Plan 61 years old male Toxic metabolic encephalopathy RESOLVED History of cataracts Diabetic Peripheral neuropathy Acetaminophen 500 mg every 4 hours. Pain 127/fever Increase gabapentin 300 mg 3 times a day. S/P ORIF right bimalleolar ankle fracture- 11/02 -Ortho ff - PT ff- non weightbearing right leg. elevate right leg when in bed - IV mOprhine prn for pain- decrease to 1 mg q 4 prn for apin S/P Acute hypercapnic respiratory failure Pulmonary edema (improved) Prior tobaccoism TRACY -no CPAP due to claustrophobia Document patient COPD/asthma Nasal cannula to maintain saturations greater than equal to 92% Incentive spirometry while awake Scheduled albuterol/ipratropium every 6 hours with albuterol nebulizers every 2 hours. Follow-up on chest x-ray 10/29 post BIV/ICD revealed no pneumothorax. Levaquin IV till 11/05 12 noon- completed S/P Third degree heart block status post transvenous VVI pacer - removed Cardiogenic shock secondary to third degree heart block, improved Chronic systolic and diastolic heart failure secondary to ischemic cardiomyopathy Left bundle branch block CAD with prior stents history Peripheral arterial disease status post stent 2 right lower extremity Dyslipidemia Hypertension Elevated troponin Carvedilol 3.125 mg twice a day On lisinopril 10 mg daily due to hypotension- restarted at low dose- 2.5 mg po daily 11/04 - BP tolerating well - increase as needed Continue atorvastatin 80 mg by mouth daily for dyslipidemia Continue bumetanide 1 mg Ipo bid. Spironolactone 25 mg daily. At home on spironolactone 25 mg twice daily On aspirin 81 mg by mouth daily. 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 Grade 1 diastolic dysfunction. Dilated LV/mild LVH 01/15/14 cardiac catheterization with MARYAM to circumflex Acute allergic reaction- I am thinking it is from Lortab- + allergy to codeine- Resolved - DC Lortab Chronic pain neuropathic- complain of increase pain.muscle aches, rashes - Increase gabapendtin --Soma 350 mg po tid- - pain controlled Gastroesophageal reflux disease Currently on 1800 ADA diet On omeprazole 20 mg by mouth daily at home. Protonix 20 no grams by mouth daily here Bowel regimen with docusate sodium/senna 1 tablet twice a day. Added polyethylene glycol 3350 17 g twice a day lactulose 4 times a day with glycerin suppositories as needed twice daily /FEN/RENAL: Acute kidney injury in the setting of Chronic kidney disease stage IIIb Horta in place. - DC horta today- 11/04- check voiding Monitor intake and output. Monitor electrolytes and replace as indicated. renal functions stable ID: UTI - Enteroccoccus faecalis Left leg cellulitis- ff exam MSSA, strep pneumonia doppler- negative for DVT Treatment with levofloxacin 5 days. GFR currently 55 so 750 mg IV every 24 hours 5 days till 11/05 Pertinent cultures UA - 10/27 - Enterococcus faecalis sensitive to ciprofloxacin Blood cultures 2 - 10/27 - no growth Sputum - 10/28 -MSSA, beta strep not a HEME: Leukocytosis History DVT right leg No indication for transfusion of blood proximal at this time doppler us of legs-negative for DVT on heparin SQ for DVT prophylaxis ENDO: Hyperosmolar hyperglycemic state, resolved Diabetes mellitus restarted on insulin detemir - up to 40 units bid . Medium regimen Novulog sliding scale with Accu-Cheks before meals/at bedtime and O300. MOnitor and adjust At home on insulin glargine 75 units twice a day and insulin aspart 48 units subcutaneous 3 times a day PROPH: GI - pantoprazole 40 mg daily DVT - 10/31 with heparin subcutaneous Incentive spirometry post op DC planning- SNF vs home with OP or home PT d/w patient and partner- they want to go home- home with home PT- CM consult but is an ideal SNF candidate also has a son who will help Riddhi Davila MD Nov 04, 2016 08:30
[2016-11-04] MEDS: HEPARIN SODIUM - SQ 10,000 UNITS/ML VIAL SQ SCH ×3 (08:46→23:02)
[2016-11-04] MEDS: GABAPENTIN 300 MG CAP PO SCH ×3 (08:46→17:44)
[2016-11-04] MEDS: ATORVASTATIN 80 MG TAB PO SCH (08:47)
[2016-11-04] MEDS: LISINOPRIL 5 MG TAB PO SCH (08:47)
[2016-11-04] MEDS: ASPIRIN 81 MG CHEW TAB CHEW SCH (08:47)
[2016-11-04] MEDS: BUMETANIDE 1 MG TAB PO SCH ×2 (08:47→17:44)
[2016-11-04] MEDS: PANTOPRAZOLE SOD 20 MG DELAYED RELEASE TAB PO SCH (08:47)
[2016-11-04] MEDS: CLOPIDOGREL 75 MG TAB PO SCH (08:47)
[2016-11-04] MEDS: SPIRONOLACTONE 25 MG TAB PO SCH (08:47)
[2016-11-04] MEDS: DOCUSATE SODIUM 50 MG/SENNA 8.6 MG TAB PO SCH ×2 (08:48→19:54)
[2016-11-04] MEDS: CARVEDILOL 3.125 MG TAB PO SCH ×2 (08:48→19:54)
[2016-11-04] MEDS: POLYETHYLENE GLYCOL 17 GM PKG NG SCH ×2 (08:48→19:54)
[2016-11-04] MEDS: LACTULOSE SYRUP 20 GM/30 ML CUP PO SCH ×4 (08:48→19:54)
[2016-11-04] MEDS: SODIUM CHLORIDE 0.9% FLUSH 10 ML FLUSH IV FLUSH SCH ×2 (08:48→19:55)
[2016-11-04] MEDS: INSULIN DETEMIR 100 UNITS/ML VIAL SQ SCH ×2 (08:55→20:00)
[2016-11-04] MEDS ORDERED: NYSTAT/DIPHENHY/LIDO MOUTHWASH (Adult) 120ML SWISH-SWAL SCH (09:00)
[2016-11-04] MEDS: RESP: ALBUTEROL 2.5 MG/IPRATROPIUM 0.5 MG NEB (SCH) NEB ×3 (09:25→21:32)
[2016-11-04] MEDS: diphenhydrAMINE HCL 50 MG/ML VIAL IV PRN (11:28)
[2016-11-04] MEDS: LEVOFLOXACIN 750 MG PREMIX INJ 150 ML IV SCH (14:22)
[2016-11-05] VITALS (9 sets, daily range): BP systolic 110–126; BP diastolic 54–85; PULSE 73–87; RESP 16–21; TEMP 96.7–98.6; O2SAT 92–96
[2016-11-05] MEDS: MORPHINE SULFATE 4 MG/ML INJ IV PUSH PRN ×4 (02:53→20:06)
[2016-11-05] MEDS: INSULIN ASPART SUPPLEMENTAL SCALE SQ SCH ×5 (02:57→20:08)
[2016-11-05] MEDS: CHLORHEXIDINE GLUCONATE 2 % 1 PACK (2 CLOTHS) TOP SCH (04:00)
[2016-11-05] MEDS: RESP: ALBUTEROL 2.5 MG/IPRATROPIUM 0.5 MG NEB (SCH) NEB ×4 (04:59→19:34)
[2016-11-05] MEDS: CARISOPRODOL 350 MG TAB PO SCH ×3 (05:49→20:05)
--- NOTE | 2016-11-05 07:57 | PD.ORT.PN ---
Subjective Subjective Remarks POD 3 s/p ORIF right ankle doing well. reports pain. states difficulty with ambulation do to inability to use left arm secondary to pacemaker placement Objective Vitals Vital Signs Date Time Temp Pulse Resp B/P (MAP) Pulse Ox O2 Delivery O2 Flow Rate FiO2 11/05/16 03:55 96.7 84 19 120/57 (78) 93 11/05/16 00:00 98.6 84 19 126/85 (99) 96 11/04/16 21:35 95 Nasal Cannula 3.00 11/04/16 20:30 Nasal Cannula 3.00 Humidified 11/04/16 20:00 98.1 75 20 118/58 (78) 97 11/04/16 16:00 98.0 83 16 97/55 (69) 94 11/04/16 12:00 97.9 88 17 108/76 (87) 93 11/04/16 08:00 Nasal Cannula 4.00 11/04/16 08:00 99.1 86 16 127/59 (81) 92 11/04/16 08:00 86 I/O 11/04/16 11/04/16 11/04/16 11/05/16 11/05/16 11/05/16 06:59 14:59 22:59 06:59 14:59 22:59 Intake Total 240 ml 1170 ml 240 ml Output Total 700 ml 1450 ml 600 ml Balance -460 ml -280 ml -360 ml Intake Oral 240 ml 1020 ml 240 ml IV Total 150 ml Output Urine Total 700 ml 1450 ml 600 ml # Bowel Movements 0 1 0 Result Diagram: 11/01/16 0554 11/04/16 0550 Imaging Last 24 hours Impressions Chest X-Ray 11/04/16 0000 Signed Impressions: Service Date/Time: Friday, November 04, 2016 01:34 - CONCLUSION: Normal examination with a pacemaker and mild bibasilar atelectasis. Aston Lopez MD Objective Remarks Laying supine, No acute distress Nasal cannula RLE Splint/Dressing intact, some swelling toes, Wiggles toes freely, mild loss sensation toes (equal bilat) Cap refill less than 2 seconds great toe Assessment & Plan Assessment and Plan pod#3 ORIF Right ankle Continue medical management. Last WBC was 9.3. Chest xray shows bilat atelectasis. Encouraged IS and out of bed to chair. Maintain right leg splint and dressing PT - Strict nonweightbearing right leg. Elevate right foot when in bed. Ice bid right foot. Case management for discharge planning home versus rehab. She states she lives at home, first floor and has 2 room mates. patient would likely benefit from SNF placement as unable to use walker at this time. 3008 on chart. Ortho cleared for DC Follow-up with Dr. Hardin in 2 weeks Tesfaye Torres Nov 05, 2016 07:57
[2016-11-05] MEDS ORDERED: WALKER/ADULT/FO1 MIS (08:00)
[2016-11-05] MEDS: CHLORHEXIDINE 0.12% (ORAL KIT) 15 ML CUP MT SCH ×2 (08:00→20:00)
[2016-11-05] MEDS ORDERED: WHEEMIS3 (08:00)
[2016-11-05] MEDS: NYSTAT/DIPHENHY/LIDO MOUTHWASH (Adult) 120ML SWISH-SWAL SCH ×4 (09:00→20:05)
[2016-11-05] MEDS: POLYETHYLENE GLYCOL 17 GM PKG NG SCH ×2 (09:00→20:04)
[2016-11-05] MEDS: LISINOPRIL 5 MG TAB PO SCH (09:00)
[2016-11-05] MEDS: SPIRONOLACTONE 25 MG TAB PO SCH (09:00)
[2016-11-05] MEDS: CARVEDILOL 3.125 MG TAB PO SCH ×2 (09:00→20:05)
[2016-11-05] MEDS: LACTULOSE SYRUP 20 GM/30 ML CUP PO SCH ×4 (09:00→20:05)
[2016-11-05] MEDS: GABAPENTIN 300 MG CAP PO SCH ×3 (09:00→16:33)
[2016-11-05] MEDS: diphenhydrAMINE HCL 50 MG/ML VIAL IV PRN (09:36)
[2016-11-05] MEDS: SODIUM CHLORIDE 0.9% FLUSH 10 ML FLUSH IV FLUSH SCH ×2 (09:39→20:04)
[2016-11-05] MEDS: HEPARIN SODIUM - SQ 10,000 UNITS/ML VIAL SQ SCH ×2 (09:41→16:32)
[2016-11-05] MEDS: ATORVASTATIN 80 MG TAB PO SCH (09:41)
[2016-11-05] MEDS: DOCUSATE SODIUM 50 MG/SENNA 8.6 MG TAB PO SCH ×2 (09:43→20:05)
[2016-11-05] MEDS: BUMETANIDE 1 MG TAB PO SCH ×2 (09:44→16:33)
[2016-11-05] MEDS: ASPIRIN 81 MG CHEW TAB CHEW SCH (09:45)
[2016-11-05] MEDS: CLOPIDOGREL 75 MG TAB PO SCH (09:46)
[2016-11-05] MEDS: PANTOPRAZOLE SOD 20 MG DELAYED RELEASE TAB PO SCH (09:46)
[2016-11-05] MEDS: INSULIN DETEMIR 100 UNITS/ML VIAL SQ SCH ×2 (09:54→20:07)
--- NOTE | 2016-11-05 13:00 | HHI.PR ---
Subjective Remarks Pain control. Functional status is poor. Movement is compromised by surgery at left chest (pacemaker (and difficulty moving left arm), combined with right ankle injury and status post surgery for repair of that fracture. Thus far she is mostly on bed rest and needing use of a bedpan. Objective Vital Signs Date Time Temp Pulse Resp B/P (MAP) Pulse Ox O2 Delivery O2 Flow Rate FiO2 11/05/16 09:00 Nasal Cannula 2.00 11/05/16 09:00 87 11/05/16 08:26 92 Nasal Cannula 2.00 11/05/16 08:00 97.6 73 21 113/55 (74) 95 11/05/16 03:55 96.7 84 19 120/57 (78) 93 11/05/16 00:00 98.6 84 19 126/85 (99) 96 11/04/16 21:35 95 Nasal Cannula 3.00 11/04/16 20:30 Nasal Cannula 3.00 Humidified 11/04/16 20:00 98.1 75 20 118/58 (78) 97 11/04/16 16:00 98.0 83 16 97/55 (69) 94 I/O 11/04/16 11/04/16 11/04/16 11/05/16 11/05/16 11/05/16 07:00 15:00 23:00 07:00 15:00 23:00 Intake Total 240 ml 1170 ml 240 ml Output Total 700 ml 1450 ml 600 ml Balance -460 ml -280 ml -360 ml Intake Oral 240 ml 1020 ml 240 ml IV Total 150 ml Output Urine Total 700 ml 1450 ml 600 ml # Bowel Movements 0 1 0 Result Diagram: 11/01/16 0554 11/04/16 0550 Objective Remarks GENERAL: NAD, A&Ox3 HEAD: Normocephalic. NECK: Supple, trachea midline. No lymphadenopathy. EYES: No scleral icterus. No injection or drainage. CARDIOVASCULAR: Regular rate and rhythm without murmurs, gallops, or rubs. RESPIRATORY: Breath sounds equal bilaterally. No accessory muscle use. GASTROINTESTINAL: Abdomen soft, non-tender, nondistended. MUSCULOSKELETAL: No cyanosis, or edema. Wound at left of chest status post pacemaker. Right ankle bandage status post fracture repair. SKIN: Warm and dry. NEURO: No focal neurological deficitis. A/P Problem List: (1) Arm pain ICD Code: M79.603 - Pain in arm, unspecified Status: Acute (2) Closed right ankle fracture ICD Code: S82.891A - Other fracture of right lower leg, initial encounter for closed fracture (3) CAD (coronary artery disease) ICD Code: I25.10 - Atherosclerotic heart disease of [place] coronary artery without angina pectoris Status: Chronic Assessment and Plan Assessment and Plan 61 years old female status post right ankle fracture repair Toxic metabolic encephalopathy Resolved History of cataracts Follow as an outpatient Diabetic Peripheral neuropathy Chronic neuropathic pain Acetaminophen 500 mg every 4 hours. Pain 127/fever gabapentin 300 mg 3 times a day. Continue Soma S/P ORIF right bimalleolar ankle fracture- 11/02 Orthopedics following Continue PT Continue as needed pain treatments S/P Acute hypercapnic respiratory failure Pulmonary edema Prior tobaccoism TRACY -no CPAP due to claustrophobia Document patient COPD/asthma Oxygen as needed Incentive spirometry As needed albuterol Schedule duo nebs Levaquin IV to be completed today S/P Third degree heart block status post transvenous VVI pacer Cardiogenic shock secondary to third degree heart block Chronic systolic and diastolic heart failure secondary to ischemic cardiomyopathy Left bundle branch block CAD with prior stents history Peripheral arterial disease status post stent 2 right lower extremity Dyslipidemia Hypertension Elevated troponin Continue daily aspirin Continue Plavix Continue Bumex Continue spironolactone Continue atorvastatin Continue lisinopril Continue carvedilol Gastroesophageal reflux disease Continue omeprazole at discharge Continue Protonix while hospitalized Continue Colace Laxatives as needed Glycerin suppositories as needed Acute kidney injury Chronic kidney disease stage IIIb Follow renal function Improved UTI - Enteroccoccus faecalis Left leg cellulitis- ff exam MSSA, strep pneumonia doppler- negative for DVT Treatment with levofloxacin 5 days. GFR currently 55 so 750 mg IV every 24 hours 5 days till 11/05 Hyperosmolar hyperglycemic state Resolved Diabetes mellitus Continue detemir insulin Insulin sliding scale Follow blood sugars Diabetic diet History of DVT DVT prophylaxis Heparin Discharge planning Plan to discharge to [facility] facility when bed is available Problem Qualifiers (1) Closed right ankle fracture: Qualified Codes: S82.891A - Other fracture of right lower leg, initial encounter for closed fracture Rakan Beckett MD Nov 05, 2016 13:00
[2016-11-06] VITALS: BP 115/61; PULSE 84; RESP 16; TEMP 97.2; O2SAT 93
[2016-11-06] MEDS: HEPARIN SODIUM - SQ 10,000 UNITS/ML VIAL SQ SCH ×2 (00:20→08:33)
[2016-11-06] MEDS: MORPHINE SULFATE 4 MG/ML INJ IV PUSH PRN ×3 (00:20→08:24)
[2016-11-06] MEDS ORDERED: LORazepam 0.5 MG TAB PO ONE (00:45)
[2016-11-06] MEDS: INSULIN ASPART SUPPLEMENTAL SCALE SQ SCH ×2 (02:32→06:11)
[2016-11-06] MEDS: CHLORHEXIDINE GLUCONATE 2 % 1 PACK (2 CLOTHS) TOP SCH (02:32)
[2016-11-06] MEDS: diphenhydrAMINE HCL 50 MG/ML VIAL IV PRN (04:02)
[2016-11-06] MEDS: CARISOPRODOL 350 MG TAB PO SCH (04:19)
[2016-11-06 04:35] VITALS: BP 124/72; PULSE 82; RESP 16; TEMP 97.8; O2SAT 94
[2016-11-06] MEDS: RESP: ALBUTEROL 2.5 MG/IPRATROPIUM 0.5 MG NEB (SCH) NEB ×2 (04:59→09:11)
[2016-11-06 08:00] VITALS: BP 118/62; PULSE 83; RESP 16; TEMP 97.8; O2SAT 93
[2016-11-06] MEDS: CHLORHEXIDINE 0.12% (ORAL KIT) 15 ML CUP MT SCH (08:00)
[2016-11-06] MEDS: BUMETANIDE 1 MG TAB PO SCH (08:24)
[2016-11-06 08:25] VITALS: O2SAT 93
[2016-11-06] MEDS: CLOPIDOGREL 75 MG TAB PO SCH (08:25)
[2016-11-06] MEDS: ATORVASTATIN 80 MG TAB PO SCH (08:25)
[2016-11-06] MEDS: LISINOPRIL 5 MG TAB PO SCH (08:26)
[2016-11-06] MEDS: CARVEDILOL 3.125 MG TAB PO SCH (08:29)
[2016-11-06] MEDS: GABAPENTIN 300 MG CAP PO SCH (08:29)
[2016-11-06] MEDS: PANTOPRAZOLE SOD 20 MG DELAYED RELEASE TAB PO SCH (08:29)
[2016-11-06] MEDS: ASPIRIN 81 MG CHEW TAB CHEW SCH (08:30)
[2016-11-06] MEDS: DOCUSATE SODIUM 50 MG/SENNA 8.6 MG TAB PO SCH (08:30)
[2016-11-06] MEDS: SPIRONOLACTONE 25 MG TAB PO SCH (08:31)
[2016-11-06] MEDS: POLYETHYLENE GLYCOL 17 GM PKG NG SCH (08:33)
[2016-11-06] MEDS: SODIUM CHLORIDE 0.9% FLUSH 10 ML FLUSH IV FLUSH SCH (08:33)
[2016-11-06] MEDS: LACTULOSE SYRUP 20 GM/30 ML CUP PO SCH (08:35)
[2016-11-06] MEDS: INSULIN DETEMIR 100 UNITS/ML VIAL SQ SCH (08:37)
[2016-11-06] MEDS: NYSTAT/DIPHENHY/LIDO MOUTHWASH (Adult) 120ML SWISH-SWAL SCH (08:48)
[2016-11-06 08:53] VITALS: PULSE 79
[2016-11-06] MEDS ORDERED: MENTHOL LOZENGE BUCCAL PRN (11:15)
[2016-11-06] MEDS ORDERED: MENTHOL LOZENGE BUCCAL ONE (11:15)
[2016-11-06] MEDS ORDERED: MAGICADU2 SWISH-SWAL (11:26)
[2016-11-06] MEDS ORDERED: SENN1TAB PO (11:26)
[2016-11-06] MEDS ORDERED: CARI350T25 PO (11:26)
[2016-11-06] MEDS ORDERED: POLY17S NG (11:26)
[2016-11-06] MEDS ORDERED: [UNRECOGNIZED DRUG - CODE] RECTAL (11:26)
[2016-11-06] MEDS ORDERED: HALLLOZ2 BUCCAL (11:26)
[2016-11-06] MEDS ORDERED: SENN8.6T15 PO (11:26)
[2016-11-06] MEDS ORDERED: Bacitracin Oint Packet TOP (11:26)
[2016-11-06 12:00] VITALS: BP 129/69; PULSE 79; RESP 16; TEMP 96.4; O2SAT 94
--- NOTE | 2016-11-06 14:07 | HHI.DS ---
Discharge Summary Admission Date Oct 27, 2016 at 17:11 Discharge Date: Nov 06, 2016 Admitting Diagnosis Complete heart block (1) COPD (chronic obstructive pulmonary disease) ICD Code: J44.9 - Chronic obstructive pulmonary disease Diagnosis: Principal Status: Chronic (2) LBBB (left bundle branch block) ICD Code: I44.7 - Left bundle-branch block, unspecified Diagnosis: Principal Status: Acute (3) AV block, 3rd degree ICD Code: I44.2 - Atrioventricular block, complete Diagnosis: Principal Status: Acute (4) Acute on chronic systolic and diastolic heart failure, NYHA class 2 ICD Code: I50.43 - Acute on chronic combined systolic (congestive) and diastolic (congestive) heart failure Diagnosis: Principal Status: Acute (5) Closed right ankle fracture ICD Code: S82.891A - Other fracture of right lower leg, initial encounter for closed fracture Diagnosis: Principal Procedures 11/02- S/P ORIF right ankle bimalleolar fracture Brief History - From Admission 61 y/o woman presented with CHB, hypotension, weakness. Required intubation and mechanical ventilation. Temporary pacer wire placed by Dr. Ingram. On levophed for BP support. She has poorly controlled DM and glucose now > 1000. Acid/base balance acceptable. I will start an insulin gtt and admit her to CVICU. ECHO 09/24: Systolic failure, EF 30%, diastolic dysfunction Grade I CBC/BMP: 11/04/16 0550 Significant Findings Laboratory Tests Test 11/04/16 05:50 Blood Urea Nitrogen 20 MG/DL (7-18) Random Glucose 227 MG/DL (74-106) Calcium Level 8.1 MG/DL (8.5-10.1) Estimat Glomerular Filtration Rate 61 ML/MIN (>89) PE at Discharge awake and alert, not in acute distress, delightfully childlike no wheezes left chest wall- sterile strips in place- no erythema, no swelling regular rhythm- paced rhythm abdomen - flabby, soft horta in place extremities -- right LE -post op dressing in place/cast in place, Hospital Course Mrs. Clayton is a 61-year-old male. She was admitted with a right ankle fracture. This has been repaired. She had toxic metabolic encephalopathy as part of her course and this has also resolved. She also had acute hypercapnic respiratory failure with pulmonary edema. There is underlying COPD. This is doing better. She improved on oxygen. She may need oxygen at discharge. Plan to discharge to correction facility. Additional complications during this stay included third-degree heart block and she is also status post pacemaker placement. She had cardiogenic shock secondary to third-degree heart block. After pacemaker placement she has been stable. Predisposition for third-degree heart block includes heart failure secondary to ischemic cardiomyopathy. Acute kidney injury was part of the sequelae of this and has returned to her prior baseline of chronic kidney disease stage III. She had a UTI with Enterococcus faecalis, a left arm cellulitis, and MSSA/strep pneumonia. She was treated with levofloxacin for 5 days. She finished levofloxacin treatment yesterday. Oral candidiasis is present and is being treated with a topical nystatin. Diabetes mellitus type 2 is present and is currently under control. Previously during this stay she had HHS and that resolved. Medically stable for discharge to correction facility today. Pt Condition on Discharge: Stable Discharge Disposition: Discharge to SNF Discharge Time: > 30 minutes Discharge Instructions DIET: Follow Instructions for: As Tolerated, No Restrictions Activities you can perform: Regular-No Restrictions Follow up Referrals: Orthopedics - 2 Weeks @ [facility] with Jhonatan Guaman MD PCP Follow-up - 2 Weeks New Medications: Tramadol (Tramadol) 50 Mg Tab 50 MG PO Q4H PRN for PAIN, #50 TAB 0 Refills Walker/Adult/Folding (Walker/Adult/Folding) 1 Mis Mis EA .ROUTE DIRECTED, #1 0 Refills Wheelchair (Wheelchair) 1 Mis Mis EA .ROUTE DIRECTED, #1 0 Refills Carisoprodol (Carisoprodol) 350 Mg Tablet 350 MG PO Q8HR PRN for CRAMPS, #90 TAB Glycerin Adult Supp (Sani-Supp Adult Supp) 2 Gm Supp 2 GM RECTAL BID PRN for Breakthrough Constipation, #30 SUPP Menthol (Mouth-Throat) ([place]umming Cough Drops Sugar F) 5.8 Mg Matthew 1 LOZENGE BUCCAL UNSCH PRN for Cough, #30 LOZENGE Tjekyjeg-Ntlkstjwvsiuedv-Mzjbrwekj Liq (Magic Mouthwash Adult Liq) 120 Ml Susp 5 ML SWISH-SWAL QID for Oral Candidiasis, #100 ML Polyethylene Glycol 3350 Powder (Polyethylene Glycol 3350 Powder) 17 Gram Pow 17 GM NG BID for Constipation, #60 PACK Sennosides (Senna Lax) 8.6 Mg Tab 17.2 MG PO Q12H PRN for MODERATE - SEVERE CONSTIPATION, #30 TAB Sennosides-Docusate Sodium (Senna Plus 8.6-50 mg) 8.6 Mg-50 Mg Tab 1 TAB PO BID for Constipation, #60 TAB [Bacitracin Oint Packet] () 0.9 GM OINT 0.9 GM TOP UNSCH PRN for SEE LABEL COMMENTS, #1 TUBE Continued Medications: Albuterol 6.7 GM Inh (Proventil Hfa 6.7 GM Inh) 90 Mcg/Act Aer 2 PUFF INH Q4-6H PRN for SHORTNESS OF BREATH, #1 INHALER [address] (Aspirin DR) 81 Mg Tabdr 81 MG PO DAILY, TAB 0 Refills Atorvastatin (Atorvastatin) 80 Mg Tab 80 MG PO DAILY for Cholesterol Management, #30 TAB 0 Refills Bumetanide (Bumetanide) 1 Mg Tab 1 MG PO BID, #60 TAB 0 Refills Carvedilol (Coreg) 3.125 Mg Tab 3.125 MG PO BID for heart, #60 TAB 0 Refills Clopidogrel (Plavix) 75 Mg Tab 75 MG PO DAILY for Blood Clot Prevention, #30 TAB 0 Refills Gabapentin (Gabapentin) 300 Mg Cap 300 MG PO TID for Pain Management, #90 CAP 0 Refills Insulin Aspart Inj (Novolog Inj) 1,000 Unit/10 Ml Vial 48 UNITS SQ TIDAC for Blood Sugar Management, #10 ML 0 Refills Insulin Glargine Inj (Lantus Inj) 1,000 Unit/10 Ml Vial 75 UNITS SQ BID for Blood Sugar Management, VIAL 0 Refills Ipratropium HFA 12.9 GM Inh (Atrovent HFA 12.9 GM Inh) 17 Mcg/Act Aer 2 PUFF INH TID PRN for SHORTNESS OF BREATH, #1 INHALER 0 Refills Lisinopril (Lisinopril) 10 Mg Tab 10 MG PO DAILY for heart for 30 Days, TAB Nitroglycerin SL (Nitroglycerin SL) 0.4 Mg Subl 0.4 MG SL DIRECTED PRN for CHEST PAIN, #100 TAB.SL 0 Refills ONE TABLET UNDER THE TONGUE NEEDED FOR CHEST PAIN, MAY REPEAT EVERY FIVE MINUTES FOR A TOTAL OF 3 DOSES OR CALL 911 IF NO RELIEF Omeprazole (Omeprazole) 20 Mg Tab 20 MG PO DAILY, #30 TAB 0 Refills Spironolactone (Spironolactone) 25 Mg Tab 25 MG PO BIDPC for heart, #60 TAB 0 Refills Rakan Beckett MD Nov 06, 2016 14:07
== END 2016-11-06 14:19 | DRG 226 ==
LOC: NEPE 14:00 → NEDA 17:11 → HIME 19:46 → HCIS 10-31 15:55 → N07A 11-02 14:08
PROVIDERS: ADMIT Hospitalist; ATTEND Hospitalist
PROC: 0T9B70Z Drainage of Bladder with Drainage Device, Via Natural or Artificial Opening (ICD-10-PCS; 2016-10-27)
PROC: 5A1945Z Respiratory Ventilation, 24-96 Consecutive Hours (ICD-10-PCS; 2016-10-27)
PROC: 0BH17EZ Insertion of Endotracheal Airway into Trachea, Via Natural or Artificial Opening (ICD-10-PCS; 2016-10-27)
PROC: 05HN33Z Insertion of Infusion Device into Left Internal Jugular Vein, Percutaneous Approach (ICD-10-PCS; 2016-10-27)
PROC: 0JH609Z Insertion of Cardiac Resynchronization Defibrillator Pulse Generator into Chest Subcutaneous Tissue and Fascia, Open Approach (ICD-10-PCS; principal; 2016-10-29)
PROC: 02HL3KZ Insertion of Defibrillator Lead into Left Ventricle, Percutaneous Approach (ICD-10-PCS; 2016-10-29)
PROC: 02H73KZ Insertion of Defibrillator Lead into Left Atrium, Percutaneous Approach (ICD-10-PCS; 2016-10-29)
PROC: 02HK3KZ Insertion of Defibrillator Lead into Right Ventricle, Percutaneous Approach (ICD-10-PCS; 2016-10-29)
PROC: 0QSG04Z Reposition Right Tibia with Internal Fixation Device, Open Approach (ICD-10-PCS; 2016-11-02)
PROC: 0QSJ04Z Reposition Right Fibula with Internal Fixation Device, Open Approach (ICD-10-PCS; 2016-11-02)
DX: I44.2 Atrioventricular block, complete (principal); J15.4 Pneumonia due to other streptococci; J96.02 Acute respiratory failure with hypercapnia; I50.43 Acute on chronic combined systolic (congestive) and diastolic (congestive) heart failure; J15.211 Pneumonia due to Methicillin susceptible Staphylococcus aureus; R57.0 Cardiogenic shock; G92 Toxic encephalopathy; I13.0 Hypertensive heart and chronic kidney disease with heart failure and stage 1 through stage 4 chronic kidney disease, or unspecified chronic kidney disease; J44.0 Chronic obstructive pulmonary disease with (acute) lower respiratory infection; E87.1 Hypo-osmolality and hyponatremia; N17.9 Acute kidney failure, unspecified; N39.0 Urinary tract infection, site not specified; L03.116 Cellulitis of left lower limb; L03.114 Cellulitis of left upper limb; B37.0 Candidal stomatitis; J98.11 Atelectasis; E11.42 Type 2 diabetes mellitus with diabetic polyneuropathy; N18.3 Chronic kidney disease, stage 3 (moderate); Z78.1 Physical restraint status; I25.10 Atherosclerotic heart disease of native coronary artery without angina pectoris; M19.90 Unspecified osteoarthritis, unspecified site; Z79.01 Long term (current) use of anticoagulants; E78.00 Pure hypercholesterolemia, unspecified; Z86.718 Personal history of other venous thrombosis and embolism; Z95.5 Presence of coronary angioplasty implant and graft; K21.9 Gastro-esophageal reflux disease without esophagitis; I25.2 Old myocardial infarction; G43.909 Migraine, unspecified, not intractable, without status migrainosus; F40.240 Claustrophobia; Z87.891 Personal history of nicotine dependence; E66.01 Morbid (severe) obesity due to excess calories; R00.1 Bradycardia, unspecified; I25.5 Ischemic cardiomyopathy; I73.9 Peripheral vascular disease, unspecified; I44.7 Left bundle-branch block, unspecified; S82.841A Displaced bimalleolar fracture of right lower leg, initial encounter for closed fracture; W06.XXXA Fall from bed, initial encounter; Y93.89 Activity, other specified; Y92.230 Patient room in hospital as the place of occurrence of the external cause; I87.8 Other specified disorders of veins; S81.802A Unspecified open wound, left lower leg, initial encounter; X58.XXXA Exposure to other specified factors, initial encounter; Z95.0 Presence of cardiac pacemaker; E11.22 Type 2 diabetes mellitus with diabetic chronic kidney disease; B95.2 Enterococcus as the cause of diseases classified elsewhere; G47.33 Obstructive sleep apnea (adult) (pediatric); R74.8 Abnormal levels of other serum enzymes; Z79.4 Long term (current) use of insulin; G89.29 Other chronic pain; Z88.5 Allergy status to narcotic agent; T40.2X5A Adverse effect of other opioids, initial encounter; Y92.239 Unspecified place in hospital as the place of occurrence of the external cause; M79.603 Pain in arm, unspecified
CPT/HCPCS: 31500; 33225; 33249; 36556; 36600; 51702; 71010; 73590; 73600; 73630; 76000; 76937; 80048; 80053; 80307; 81001; 82306; 82550; 82552; 82805; 82947; 82948; 83605; 83735; 83930; 83970; 84100; 84155; 84443; 84484; 85025; 85610; 85730; 86403; 87040; 87070; 87077; 87086; 87147; 87186; 87205; 87641; 93005; 93970; 94002; 94003; 94150; 94640; 94664; 94667; 94668; 96365; 96366; 96368; 96375; C1713; C1769; C1779; C1882; C1895; C1900; C9113; J0131; J0171; J0461; J0690; J1200; J1580; J1644; J1815; J1817; J1940; J1956; J2060; J2250; J2270; J2370; J2405; J2550; J2710; J3010; J3370; J7030; J7040; J7050; J7512; J7613; Q9967

== ENCOUNTER 2016-12-10 02:50 | Emergency (ER) | payer MEDICAID ==
[~2016-12-10] VITALS: Ht 157.5 cm; Wt 115.0 kg
[~2016-12-10 02:50] MED LIST changes: +Bacitracin Oint Packet TOP; +CARI350T25 PO; -EPINEPHrine HCL (1:10,000) 1 MG/10 ML SYRINGE IV ONE; +HALLLOZ2 BUCCAL; +MAGICADU2 SWISH-SWAL; +POLY17S NG; +SENN1TAB PO; +SENN8.6T15 PO; +TRAM50TA PO; +WALKER/ADULT/FO1 MIS; +WHEEMIS3; +[UNRECOGNIZED DRUG - CODE] RECTAL
[2016-12-10 02:53] VITALS: BP 170/78; PULSE 103; RESP 20; TEMP 98.9; O2SAT 90
[2016-12-10 03:16] VITALS: O2SAT 90
[2016-12-10 03:24] LABS: AUTOMATED NEUTROPHIL # 8.7 TH/MM3 (1.8-7.7); BASOPHIL % 0.3 % (0.0-2.0); EOSINOPHIL # 0.6 TH/MM3 (0-0.4); EOSINOPHIL % 5.7 % (0.0-4.0); HEMATOCRIT 32.5 % (35.0-46.0); HEMO FLAGS DIFF FINAL; LYMPH % 10.4 % (9.0-44.0); LYMPHOCYTE # 1.2 TH/MM3 (1.0-4.8); MEAN CELL VOLUME 83.2 FL (80.0-100.0); MEAN CORPUSCULAR HGB CONC 32.4 % (32.0-36.0); MONO % 5.7 % (0.0-8.0); NEUT % 77.9 % (16.0-70.0); PLATELET COUNT 283 TH/MM3 (150-450); RED BLOOD COUNT 3.91 MIL/MM3 (4.00-5.30); RED CELL DISTRIBUTION WIDTH 14.3 % (11.6-17.2); WHITE BLOOD COUNT 11.1 TH/MM3 (4.0-11.0)
[2016-12-10 03:38] LABS: ALT (GPT) 22 U/L (10-53); ANION GAP 8 MEQ/L (5-15); AST (GOT) 21 U/L (15-37); BICARBONATE 25.7 MEQ/L (21.0-32.0); BLOOD UREA NITROGEN 23 MG/DL (7-18); CHLORIDE 104 MEQ/L (98-107); GLOMERULAR FILTRATION RATE 84 ML/MIN (>89); POTASSIUM 3.6 MEQ/L (3.5-5.1); SODIUM (NA) 138 MEQ/L (136-145)
[2016-12-10 03:40] LABS: ALKALINE PHOSPHATASE 142 U/L (45-117); TOTAL BILIRUBIN ADULT 0.3 MG/DL (0.2-1.0)
[2016-12-10 03:41] LABS: BACTERIA, URINE MOD /hpf; BLOOD, URINE MOD (NEG); COMMENT (UR) CULTURE INDICATED; CULTURE IF INDICATED CULTURE INDICATED; GLUCOSE,URINE TRACE mg/dL (NEG); HYALINE CAST, URINE 3 /lpf (RARE); KETONE, URINE NEG (NEG); NITRITE,URINE NEG (NEG); SQUAMOUS EPITHELIAL CELL URINE 7 /hpf (0-5); URINE COLOR YELLOW (YELLW/STRAW)
--- NOTE | 2016-12-10 03:54 | PD ---
HPI Chief Complaint: Abdominal Pain Time Seen by Provider: 02:58 Travel History International Travel<30 days: No Contact w/Intl Traveler<30days: No Traveled to known affect area: No History of Present Illness HPI The patient is a 61 year old female who presents to the [facility] emergency department with a history of abdominal pain that began and awakened her from sound sleep at 1 AM. Her last meal was at 7:30PM. She has had n/v x3. She denies having any diarrhea. She has some constipation. She last moved her bowels in small amount earlier today. It is in the midepigastric area. She denies any problems with acid reflux or heart burn. She has had a cholecystectomy. She denies any sick contacts. The patient denies any history of fever, cough, congestion, neck pain, chest pain, worsening shortness of breath, urinary symptoms, or neurologic symptoms. She was released from rehab after a pacemaker was placed 3 days ago. Her blood sugar was 135 this evening. She reports that she has been attempting to wean herself off of her home O2 as she has been feeling improved from a respiratory standpoint. She reports that she has been on 2 L continuously. [facility] Past Medical History Narrative Medical The patient's past medical history is significant for 2 L NC02 at home, chf, copd, constipation, diabetes mellitus, hypertension, obesity, recent right lower extremity fracture after syncope, bradycardia requiring pacemaker placement, Hx Anticoagulant Therapy: Yes (PLAVIX ) Arthritis: Yes Asthma: Yes Autoimmune Disease: No Blood Disorders: No Anxiety: No Depression: No Heart Rhythm Problems: No Cancer: No Cardiac Catheterization: Yes (3 STENTS 2012/XIMENA-2 leg stents 2013) Cardiovascular Problems: Yes High Cholesterol: Yes Chemotherapy: No Chest Pain: Yes Congestive Heart Failure: Yes COPD: Yes Cerebrovascular Accident: No Coronary Artery Disease: Yes Diabetes: Yes Patient Takes Glucophage: No Diminished Hearing: No Deep Vein Thrombosis: Yes Endocrine: Yes Gastrointestinal Disorders: Yes GERD: Yes Genitourinary: Yes Hepatitis: No Hiatal Hernia: No Heparin Induced Thrombocytopen: No Hypertension: Yes Immune Disorder: No Implanted Vascular Access Dvce: Yes Kidney Stones: No Musculoskeletal: Yes Neurologic: Yes Psychiatric: Yes Reproductive: No Respiratory: Yes Immunizations Current: Yes Migraines: Yes Myocardial Infarction: Yes (X2 2012) Radiation Therapy: No Renal Failure: Yes (had x1 for fluid removal) Seizures: No Sickle Cell Disease: No Sleep Apnea: Yes (no bipap due claustrophobia) Thyroid Disease: No Ulcer: No Menopausal: Yes : 2 Para: 2 Tubal Ligation: Yes Past Surgical History Abdominal Surgery: Yes (gallbladder remmoved) AICD: No Appendectomy: No Arteriovenous Shunt: No Body Medical Devices: STENTS Cardiac Surgery: No Cholecystectomy: Yes Coronary Artery Bypass Graft: No Ear Surgery: No Endocrine Surgery: No Eye Surgery: Yes (lasix surgery bilat ) Genitourinary Surgery: No Gynecologic Surgery: No Insulin Pump: No Joint Replacement: No Neurologic Surgery: No Oral Surgery: No Pacemaker: Yes Thoracic Surgery: No Tonsillectomy: Yes Other Surgery: Yes (HEART CATH. CARDIAC STENTS, PACEMAKER ) Social History Alcohol Use: No (PT DENIES) Tobacco Use: No (quit two years ago.) Substance Use: No Allergies-Medications (Allergen,Severity, Reaction): Coded Allergies: codeine (Unverified Allergy, Intermediate, rash, 12/10/16) penicillin G (Unverified Allergy, Intermediate, RASH,FEVER, SEIZURE, ) *MDRO Multi-Drug Resistant Organism (Verified Adverse Reaction, Unknown, Cleared 04/25/16, 12/10/16) MRSA (leg wound) 04/2015 MRSA PCR screen NEGATIVE - 03/26/16 & 04/25/16 Cleared per Infection Control Reported Meds & Prescriptions Reported Meds & Active Scripts Active Miralax Powder (Polyethylene Glycol 3350 Powder) 17 Gm Powd 17 Gm PO DAILY Mix and dissolve one measuring cap-ful (17 grams) in water or juice. Azithromycin 250 Mg Tab 250 Mg PO DIRECTED Take 2 tabs (500 mg) on day 1 then 1 tab daily x 4 days. Cefuroxime (Cefuroxime Axetil) 500 Mg Tab 500 Mg PO BID Senna Lax (Sennosides) 8.6 Mg Tab 17.2 Mg PO Q12H PRN Senna Plus 8.6-50 mg (Sennosides-Docusate Sodium) 8.6 Mg-50 Mg Tab 1 Tab PO BID Wheelchair (Device) 1 Mis Mis Ea .ROUTE DIRECTED Tramadol (Tramadol HCl) 50 Mg Tab 50 Mg PO Q4H PRN Spironolactone 25 Mg Tab 25 Mg PO BIDPC Lisinopril 10 Mg Tab 10 Mg PO DAILY 30 Days Coreg (Carvedilol) 3.125 Mg Tab 3.125 Mg PO BID Gabapentin 300 Mg Cap 300 Mg PO TID Reported Lantus Inj (Insulin Glargine) 1,000 Unit/10 Ml Vial 75 Units SQ BID Novolog Inj (Insulin Aspart) 1,000 Unit/10 Ml Vial 48 Units SQ TIDAC Bumetanide 1 Mg Tab 1 Mg PO BID Aspirin DR (Aspirin) 81 Mg Tabdr 81 Mg PO DAILY Plavix (Clopidogrel Bisulfate) 75 Mg Tab 75 Mg PO DAILY Atrovent HFA 12.9 GM Inh (Ipratropium [place]) 17 Mcg/Act Aer 2 Puff INH TID PRN Proventil Hfa 6.7 GM Inh (Albuterol Sulfate) 90 Mcg/Act Aer 2 Puff INH Q4-6H PRN Nitroglycerin SL (Nitroglycerin) 0.4 Mg Subl 0.4 Mg SL DIRECTED PRN ONE TABLET UNDER THE TONGUE NEEDED FOR CHEST PAIN, MAY REPEAT EVERY FIVE MINUTES FOR A TOTAL OF 3 DOSES OR CALL 911 IF NO RELIEF Atorvastatin (Atorvastatin Calcium) 80 Mg Tab 80 Mg PO DAILY Omeprazole 20 Mg Tab 20 Mg PO DAILY Review of Systems Except as stated in HPI: all other systems reviewed are Neg General / Constitutional: No: Fever Eyes: No: Visual changes HENT: No: Headaches Cardiovascular: No: Chest Pain or Discomfort Respiratory: No: Shortness of Breath Gastrointestinal: Positive: Nausea, Vomiting, Abdominal Pain, Constipation, Changes in Bowel Habits, No: Hematemesis, Hematochezia, Indigestion, Loss of Appetite Genitourinary: No: Dysuria Musculoskeletal: No: Pain Skin: No Rash Neurologic: No: Weakness Psychiatric: No: Depression Endocrine: No: Polydipsia Hematologic/Lymphatic: No: Easy Bruising Physical Exam Narrative General: The patient is a well-developed well-nourished female in no acute distress. Head and Neck exam: Head is normocephalic atraumatic. Eyes: EOMI, pupils are equal round and reactive to light. Nose: Midline septum with pink mucous membranes Mouth: Dentition unremarkable. Moist mucus membranes. Posterior oropharynx is not erythematous. No tonsillar hypertrophy. Uvula midline. Airway patent. Neck: No palpable lymphadenopathy. No nuchal rigidity. No thyromegaly. Cardiovascular: Regular rate and rhythm without murmurs, gallops, or rubs. No pulse deficit to the extremities and simultaneous auscultation and palpation of her radial artery. Lungs: Clear to auscultation bilaterally. No wheezes, rhonchi, or rales. Abdomen: Soft, with midepigastric abdominal discomfort on deep palpation. No other tenderness on palpation of the other quadrants of the abdomen. No guarding, rebound, or rigidity. Normal bowel sounds are audible. No tenderness on palpation of McBurney's point. Negative Hernandez's sign. Extremities: No clubbing or cyanosis. The patient has trace pedal edema bilateral lower extremities. The patient has a cast in place on the right lower extremity. She has less than 3 second capillary refill of the digits of the right foot. Back: No spinous process tenderness to palpation. No costovertebral angle tenderness to palpation. Neurologic Exam: Grossly nonfocal. Skin Exam: No rash noted. Intact skin that is warm and dry. Data Data Last Documented VS Vital Signs Date Time Temp Pulse Resp B/P (MAP) Pulse Ox O2 Delivery O2 Flow Rate FiO2 12/10/16 07:27 12/10/16 07:17 62 18 97 Room Air 12/10/16 06:44 3.00 12/10/16 02:53 98.9 Orders Orders Complete Blood Count With Diff (12/10/16 03:08) Comprehensive Metabolic Panel (12/10/16 03:08) Urinalysis - C+S If Indicated (12/10/16 03:08) Iv Access Insert/Monitor (12/10/16 03:08) Oxygen Administration (12/10/16 03:08) Oximetry (12/10/16 03:08) Lipase (12/10/16 03:08) Urine Culture (12/10/16 03:30) Ct Abd/Pel W Iv Contrast(Rout) (12/10/16 03:52) Ceftriaxone Inj (Rocephin Inj) (12/10/16 04:15) Ketorolac Inj (Toradol Inj) (12/10/16 04:15) Ondansetron Inj (Zofran Inj) (12/10/16 04:15) Iohexol 350 Inj (Omnipaque 350 Inj) (12/10/16 04:49) Albuterol-Ipratropium Neb (Duoneb Neb) (12/10/16 06:45) Labs Laboratory Tests Test 12/10/16 03:13 12/10/16 03:30 White Blood Count 11.1 TH/MM3 Red Blood Count 3.91 MIL/MM3 Hemoglobin 10.6 GM/DL Hematocrit 32.5 % Mean Corpuscular Volume 83.2 FL Mean Corpuscular Hemoglobin 27.0 PG Mean Corpuscular Hemoglobin Concent 32.4 % Red Cell Distribution Width 14.3 % Platelet Count 283 TH/MM3 Mean Platelet Volume 8.9 FL Neutrophils (%) (Auto) 77.9 % Lymphocytes (%) (Auto) 10.4 % Monocytes (%) (Auto) 5.7 % Eosinophils (%) (Auto) 5.7 % Basophils (%) (Auto) 0.3 % Neutrophils # (Auto) 8.7 TH/MM3 Lymphocytes # (Auto) 1.2 TH/MM3 Monocytes # (Auto) 0.6 TH/MM3 Eosinophils # (Auto) 0.6 TH/MM3 Basophils # (Auto) 0.0 TH/MM3 CBC Comment DIFF FINAL Differential Comment Blood Urea Nitrogen 23 MG/DL Creatinine 0.71 MG/DL Random Glucose 183 MG/DL Total Protein 7.6 GM/DL Albumin 3.2 GM/DL Calcium Level 9.0 MG/DL Alkaline Phosphatase 142 U/L Aspartate Amino Transf (AST/SGOT) 21 U/L Alanine Aminotransferase (ALT/SGPT) 22 U/L Total Bilirubin 0.3 MG/DL Sodium Level 138 MEQ/L Potassium Level 3.6 MEQ/L Chloride Level 104 MEQ/L Carbon Dioxide Level 25.7 MEQ/L Anion Gap 8 MEQ/L Estimat Glomerular Filtration Rate 84 ML/MIN Lipase 196 U/L Urine Color YELLOW Urine Turbidity HAZY Urine pH 6.0 Urine Specific [place] 1.015 Urine Protein 300 mg/dL Urine Glucose (UA) TRACE mg/dL Urine Ketones NEG mg/dL Urine Occult Blood MOD Urine Nitrite NEG Urine Bilirubin NEG Urine Urobilinogen LESS THAN 2.0 MG/DL Urine Leukocyte Esterase TRACE Urine RBC 9 /hpf Urine WBC 10 /hpf Urine Squamous Epithelial Cells 7 /hpf Urine Bacteria MOD /hpf Urine Hyaline Casts 3 /lpf Microscopic Urinalysis Comment CULTURE INDICATED MDM Medical Decision Making Medical Screen Exam Complete: Yes Emergency Medical Condition: Yes Medical Record Reviewed: Yes Interpretation(s) Last Impressions Abdomen/Pelvis CT 12/10/16 0352 Signed Impressions: Service Date/Time: Saturday, December 10, 2016 04:41 - CONCLUSION: 1. No obstruction or acute inflammatory changes. 2. Pneumonia of both visualized lung bases. 3. Left adrenal nodule stable greater than 2 years. 4. Shotty retroperitoneal lymph nodes stable. Myles Dumont MD Differential Diagnosis Bowel dissection, versus diverticulitis, versus acute pancreatitis, versus constipation. Narrative Course During the course of the patients emergency department visit, the patients history, examination, and differential diagnosis were reviewed with the patient. The patient had IV access obtained and blood work sent for analysis. The patient was placed on a electronic device monitor with oximetry and blood pressure monitoring. The patient was initially provided Toradol 15 mg IV for pain, Zofran 4 mg IV for nausea. The patients laboratory studies were reviewed and remarkable for a white count 11.1, hemoglobin 10.6, platelets 283 with 77.9 neutrophils, eosinophils 5.7, CMP is remarkable for V1 and 23, glucose 183, alkaline phosphatase 142, albumin 3.2, lipase 196. Urinalysis showed trace leukocyte Estrace, RBCs 9, WBC 10, moderate bacteria, culture indicated. Radiology studies were reviewed and remarkable for a CT scan of the abdomen and pelvis that shows no obstruction or acute inflammatory changes, patchy infiltrates in bilateral lung bases. On further questioning of the patient, the patient denies having any increased productive cough, shortness of breath, fever to suggest a recurrent pneumonia. However as the patient does have a urinary tract infection, the patient will be treated with antibiotic that will also cover for pneumonia. The patient will be sent home with Ceftin and azithromycin. The patient was given a prescription for MiraLAX for constipation. The patient is resting comfortably and feels better, is alert and in no distress. The patients results and examination findings were discussed with the patient. The repeat examination is unremarkable and benign. The history, exam, diagnostic testing, and current condition do not suggest any significant pathology to warrant further testing, continued ED treatment, admission, or surgical evaluation at this point. The vital signs have been stable. The patient does not have uncontrollable pain, intractable vomiting, or other significant symptoms. The patient's condition is stable and appropriate for discharge. The patient will pursue further outpatient evaluation with a primary care physician or other designated or consulting physician as indicated in the discharge instructions. The patient expressed understanding and was agreeable with this plan. Diagnosis Primary Impression: Abdominal pain Qualified Codes: R10.13 - Epigastric pain Additional Impression: Urinary tract infection Qualified Codes: N39.0 - Urinary tract infection, site not specified Referrals: Primary Care Physician 2 days Patient Instructions: Abdominal Pain (ED) Med/Other Pt SpecificInfo: Prescription(s) given Scripts Polyethylene Glycol 3350 Powder (Miralax Powder) 17 Gm Powd 17 GM PO DAILY for Constipation, #1 CAN 0 Refills Mix and dissolve one measuring cap-ful (17 grams) in water or juice. Prov: Leyal Sanchez MD 12/10/16 Azithromycin (Azithromycin) 250 Mg Tab 250 MG PO DIRECTED for Infection, #6 TAB 0 Refills Take 2 tabs (500 mg) on day 1 then 1 tab daily x 4 days. Prov: Leyla Sanchez MD 12/10/16 Cefuroxime (Cefuroxime) 500 Mg Tab 500 MG PO BID for Infection, #20 TAB 0 Refills Prov: Leyla Sanchez MD 12/10/16 Disposition: 01 DISCHARGE HOME Condition: Stable Leyla Sanchez MD Dec 10, 2016 03:54
[2016-12-10] MEDS ORDERED: cefTRIAXone INJ 1,000 MG in SODIUM CHLORIDE 0.9% INJ 100 ML IV ONE (04:15)
[2016-12-10] MEDS ORDERED: KETOROLAC TROMETHAMINE 30 MG/ML (IVP) VIAL IV PUSH ONE (04:15)
[2016-12-10] MEDS ORDERED: ONDANSETRON HCL 4 MG/2 ML VIAL IV PUSH ONE (04:15)
[2016-12-10] MEDS ORDERED: IOHEXOL 350 MG/ML 10 ML VIAL (for RAD DIAG) IVCONTRAST ONE (04:49)
--- NOTE | 2016-12-10 05:04 | RADRPT ---
EXAM DATE/TIME: 12/10/2016 04:41 [facility] COMPARISON: CT PULMONARY ANGIOGRAM, August 19, 2014, 12:24. CT PULMONARY ANGIOGRAM, July 14, 2013, 17:23. CT ABDOM EN & PELVIS W CONTRAST, March 22, 2016, 18:05. INDICATIONS : Abdominal pain with vomiting. IV CONTRAST: 95 cc Omnipaque 350 (iohexol) IV ORAL CONTRAST: No oral contrast ingested. RADIATION DOSE: 28.82 CTDIvol (mGy) ; Patient body habitus MEDICAL HISTORY : Chronic obstructive pulmonary disease. Deep venous thrombosis. Rheumatoid arthritis.CAD. Congestive h eart failure. Hypertension. Diabetes. Myocardial infarction. SURGICAL HISTORY : Cholecystectomy. Pacemaker.Cardiac stent. ENCOUNTER: Initial ACUITY: 1 day PAIN SCALE: 7/10 LOCATION: Bilateral abdomen TECHNIQUE: Volumetric scanning of the abdomen and pelvis was performed. Using automated exposure control and ad justment of the mA and/or kV according to patient size, radiation dose was kept as low as reasonably achievable to obtain optimal diagnostic quality images. DICOM format image data is available electro nically for review and comparison. FINDINGS: Nondistended bowel and stomach. Fluid filled colon noted. No focal inflammatory changes are seen. Stable 1 cm nodule left adrenal gland. The liver, spleen, pancreas, right adrenal gland and kidneys a re within normal limits. Previous cholecystectomy. Shotty retroperitoneal lymphadenopathy similar to before. There is atherosclerosis of the abdominal aorta. No aneurysm. Calcified fibroids are again noted of the uterus. There is no free fluid in the pelvic cavity. Patchy infiltrates seen of both visualized lung bases. There is also mild cardiac enlargement. CONCLUSION: 1. No obstruction or acute inflammatory changes. 2. Pneumonia of both visualized lung bases. 3. Left adrenal nodule stable greater than 2 years. 4. Shotty retroperitoneal lymph nodes stable. Myles Dumont MD on December 10, 2016 at 4:58 Board Certified Radiologist. This report was verified electronically.
[2016-12-10 06:35] VITALS: BP 123/60; PULSE 62; PULSE 93; RESP 18; O2SAT 95
[2016-12-10] MEDS ORDERED: AZIT250T3 PO (06:40)
[2016-12-10] MEDS ORDERED: CEFU1TAB20 PO (06:40)
[2016-12-10] MEDS ORDERED: MIRA3350 PO (06:40)
[2016-12-10 06:44] VITALS: O2SAT 94
[2016-12-10] MEDS ORDERED: RESP: ALBUTEROL 2.5 MG/IPRATROPIUM 0.5 MG NEB (SCH) NEB ONE (06:45)
[2016-12-10 07:17] VITALS: BP 129/82; PULSE 62; RESP 18; O2SAT 97
== END 2016-12-10 07:27 | disposition home or self-care (01) ==
LOC: NEPE 02:50
DX: R10.13 Epigastric pain (principal); R11.2 Nausea with vomiting, unspecified; N39.0 Urinary tract infection, site not specified; J18.9 Pneumonia, unspecified organism; K59.00 Constipation, unspecified; I13.0 Hypertensive heart and chronic kidney disease with heart failure and stage 1 through stage 4 chronic kidney disease, or unspecified chronic kidney disease; I50.9 Heart failure, unspecified; N18.9 Chronic kidney disease, unspecified; E11.22 Type 2 diabetes mellitus with diabetic chronic kidney disease
CPT/HCPCS: 74177; 80053; 81001; 83690; 85025; 87086; 94664; 96365; 96375; 99285; J0696; J1885; J2405; Q9967

== ENCOUNTER → 2016-12-20 | Outpatient (CLI) | payer MEDICAID ==
[~2016-12-20] MED LIST changes: +AZIT250T3 PO; -Bacitracin Oint Packet TOP; -CARI350T25 PO; +CEFU1TAB20 PO; -HALLLOZ2 BUCCAL; -MAGICADU2 SWISH-SWAL; +MIRA3350 PO; -POLY17S NG; -WALKER/ADULT/FO1 MIS; -[UNRECOGNIZED DRUG - CODE] RECTAL
== END ==
LOC: HORT 15:52
PROVIDERS: ATTEND Orthopaedic Surgery Orthopaedic Trauma
DX: S82.891D Other fracture of right lower leg, subsequent encounter for closed fracture with routine healing (principal); X58.XXXD Exposure to other specified factors, subsequent encounter
CPT/HCPCS: L2114

== ENCOUNTER 2017-01-23 08:56 | Observation (INO) | payer MEDICAID ==
[~2017-01-23] VITALS: Ht 157.5 cm; Wt 123.0 kg
[2017-01-23] VITALS (7 sets, daily range): BP systolic 121–177; BP diastolic 59–96; PULSE 86–100; RESP 18–24; TEMP 98.8; O2SAT 89–98
[~2017-01-23 08:56] MED LIST changes: +ASPI81TA17 PO; -ASPI81TA67 PO; -ATOR1TAB18 PO; +ATOR80TA45 PO; -OMEP20TA PO; +OMEP20TA93 PO; +SENN1TAB27 PO; -SENN8.6T15 PO
[2017-01-23] MEDS ORDERED: IODIXANOL 320 MG/ML 10 ML VIAL (for Rad CT) IVCONTRAST ONE (08:57)
[2017-01-23] MEDS ORDERED: predniSONE 20 MG TAB PO ONE (09:15)
[2017-01-23] MEDS ORDERED: SODIUM CHLORIDE 0.9% FLUSH 10 ML FLUSH IVF PRN (09:15)
--- NOTE | 2017-01-23 09:20 | PD ---
HPI Chief Complaint: Respiratory Distress Time Seen by Provider: 09:13 Travel History International Travel<30 days: No Contact w/Intl Traveler<30days: No Traveled to known affect area: No History of Present Illness HPI This is a 61-year-old female presents emergency department for evaluation of shortness of breath for the past few days gradually worsening so she was some nausea. She has a medical history of a sudden cardiac collapse in October of this year found to be in third degree heart block and had an immediate pacemaker placed. She also has a history of COPD and is supposed to be on 3 L of oxygen all the time but states that she has been trying to wean herself off of oxygen over the past few months. In October she also had repair of a right ankle fracture when she collapsed at home. She is currently in an Néstor wrap the right lower extremity. She has CHF with a last EF of 30% in September of this year. Patient is unaware of her last cardiac catheterization. In October. She had a pacemaker placed but did not have cardiac angiography. Patient states symptoms are moderate, gradually worsening, associated with yellow phlegm production. Context as above. PFSH Past Medical History Hx Anticoagulant Therapy: Yes (ASPIRIN AND PLAVIX) Arthritis: Yes Asthma: Yes Autoimmune Disease: No Blood Disorders: No Anxiety: No Depression: No Heart Rhythm Problems: No Cancer: No Cardiac Catheterization: Yes (3 STENTS 2012/XIMENA-2 leg stents 2013) Cardiovascular Problems: Yes (VT X3) High Cholesterol: Yes Chemotherapy: No Chest Pain: Yes Congestive Heart Failure: Yes COPD: Yes Cerebrovascular Accident: No Coronary Artery Disease: Yes Diabetes: Yes (TYPE II ) Patient Takes Glucophage: No Diminished Hearing: No Deep Vein Thrombosis: Yes Endocrine: Yes Gastrointestinal Disorders: Yes GERD: Yes Genitourinary: Yes Hepatitis: No Hiatal Hernia: No Heparin Induced Thrombocytopen: No Hypertension: Yes Immune Disorder: No Implanted Vascular Access Dvce: Yes Kidney Stones: No Musculoskeletal: Yes Neurologic: Yes Psychiatric: Yes Reproductive: No Respiratory: Yes (COPD) Immunizations Current: Yes Migraines: Yes Myocardial Infarction: Yes (X2 2013) Radiation Therapy: No Renal Failure: Yes (had x1 for fluid removal) Seizures: No Sickle Cell Disease: No Sleep Apnea: Yes (no bipap due claustrophobia) Thyroid Disease: No Ulcer: No ?: Not Menopausal: Yes : 2 Para: 2 Tubal Ligation: Yes Past Surgical History Abdominal Surgery: Yes (gallbladder remmoved) AICD: No Appendectomy: No Arteriovenous Shunt: No Body Medical Devices: STENTS Cardiac Surgery: No Cholecystectomy: Yes Coronary Artery Bypass Graft: No Ear Surgery: No Endocrine Surgery: No Eye Surgery: Yes (lasix surgery bilat ) Genitourinary Surgery: No Gynecologic Surgery: No Insulin Pump: No Joint Replacement: No Neurologic Surgery: No Oral Surgery: No Pacemaker: Yes Thoracic Surgery: No Tonsillectomy: Yes Other Surgery: Yes (HEART CATH. CARDIAC STENTS, PACEMAKER ) Social History Alcohol Use: No (PT DENIES) Tobacco Use: No (quit two years ago.) Substance Use: No Allergies-Medications (Allergen,Severity, Reaction): Coded Allergies: codeine (Unverified Allergy, Intermediate, rash, 01/23/17) penicillin G (Unverified Allergy, Intermediate, RASH,FEVER, SEIZURE, 01/23) *MDRO Multi-Drug Resistant Organism (Verified Adverse Reaction, Unknown, Cleared 04/25/16, 01/23/17) MRSA (leg wound) 04/2015 MRSA PCR screen NEGATIVE - 03/26/16 & 04/25/16 Cleared per Infection Control Reported Meds & Prescriptions Reported Meds & Active Scripts Active Tramadol (Tramadol HCl) 50 Mg Tab 50 Mg PO Q4H PRN Coreg (Carvedilol) 3.125 Mg Tab 3.125 Mg PO BID Gabapentin 300 Mg Cap 300 Mg PO TID Reported Glipizide 5 Mg Tab 5 Mg PO DAILY Take 30 minutes before a meal Lisinopril 20 Mg Tab 20 Mg PO DAILY Bumetanide 2 Mg Tab 2 Mg PO BID Lantus Inj (Insulin Glargine) 1,000 Unit/10 Ml Vial 50 Units SQ BID Novolog Inj (Insulin Aspart) 1,000 Unit/10 Ml Vial 10 Units SQ TIDAC Aspirin DR (Aspirin) 81 Mg Tabdr 81 Mg PO DAILY Plavix (Clopidogrel Bisulfate) 75 Mg Tab 75 Mg PO DAILY Atorvastatin (Atorvastatin Calcium) 80 Mg Tab 80 Mg PO DAILY Omeprazole 20 Mg Tab 20 Mg PO DAILY Review of Systems Except as stated in HPI: all other systems reviewed are Neg Physical Exam Narrative GENERAL: Well-developed well-nourished, multiple bug bites seen on her person. Morbidly obese. SKIN: Focused skin assessment warm/dry. HEAD: Atraumatic. Normocephalic. EYES: Pupils equal and round. No scleral icterus. No injection or drainage. ENT: No nasal bleeding or discharge. Mucous membranes pink and moist. NECK: Trachea midline. No JVD. CARDIOVASCULAR: Regular rate and rhythm. No murmur appreciated. RESPIRATORY: No clear to auscultation but limited secondary to habitus. Tachypneic. GASTROINTESTINAL: Abdomen soft, non-tender, nondistended. Hepatic and splenic margins not palpable. MUSCULOSKELETAL: No obvious deformities. No clubbing. No cyanosis. No edema. NEUROLOGICAL: Awake and alert. No obvious cranial nerve deficits. Motor grossly within normal limits. Normal speech. PSYCHIATRIC: Appropriate mood and affect; insight and judgment normal. Data Data Last Documented VS Vital Signs Date Time Temp Pulse Resp B/P (MAP) Pulse Ox O2 Delivery O2 Flow Rate FiO2 01/23/17 16:01 92 20 121/59 (79) 91 Nasal Cannula 2.00 Orders Orders Electrocardiogram (01/23/17 09:14) Complete Blood Count With Diff (01/23/17 09:14) Comprehensive Metabolic Panel (01/23/17 09:14) Chest, Single Ap (01/23/17 09:14) Ecg Monitoring (01/23/17 09:14) Iv Access Insert/Monitor (01/23/17 09:14) Oximetry (01/23/17 09:14) Oxygen Administration (01/23/17 09:14) Prednisone (Deltasone) (01/23/17 09:15) Sodium Chloride 0.9% Flush (Ns Flush) (01/23/17 09:15) D-Dimer (01/23/17 09:14) Troponin I (01/23/17 09:14) Resp Blood Gas Venous (01/23/17 ) Ondansetron Inj (Zofran Inj) (01/23/17 09:30) Lipase (01/23/17 09:38) Blood Gas Venous (Vbg) (01/23/17 09:35) Ondansetron Inj (Zofran Inj) (01/23/17 10:00) Vascular Access Team Consult/P PRN (01/23/17 09:57) Vascular Poc Ultrasound (01/23/17 ) Vascular Access Team Consult/P (01/23/17 09:58) ^ Vascular Cath (01/23/17 09:58) Ct Pulmonary Angiogram (01/23/17 ) Methylprednisolone So Succ Inj (Solumedr (01/23/17 11:30) Promethazine Inj (Phenergan Inj) (01/23/17 11:30) Lorazepam Inj (Ativan Inj) (01/23/17 11:30) Vascular Access Team Consult/P (01/23/17 12:47) ^ Vascular Cath (01/23/17 12:47) Vascular Poc Ultrasound (01/23/17 ) Iodixanol 320 Inj (Rad Ct) (Visipaque 32 (01/23/17 08:57) Albuterol-Ipratropium Neb (Duoneb Neb) (01/23/17 16:00) Furosemide Inj (Lasix Inj) (01/23/17 16:00) Admit Order (Ed Use Only) (01/23/17 ) Place In Observation (01/23/17 ) Vital Signs (Adult) Q4H (01/23/17 16:00) Activity Oob With Assistance (01/23/17 16:00) Director Call Center Sales / Telemetry .CONTINUOUS (01/23/17 16:00) Intake + Output ELENA.QSHIFT (01/23/17 16:00) Diet Heart Healthy (01/23/17 Dinner) Sodium Chloride 0.9% Flush (Ns Flush) (01/23/17 16:00) Sodium Chloride 0.9% Flush (Ns Flush) (01/23/17 21:00) Basic Metabolic Panel (Bmp) (01/24/17 06:00) Complete Blood Count With Diff (01/24/17 06:00) Creatine Kinase (Cpk) (01/23/17 16:00) Creatine Kinase (Cpk) (01/23/17 22:00) Troponin I (01/23/17 16:00) Troponin I (01/23/17 22:00) Electrocardiogram (01/23/17 16:00) Electrocardiogram (01/23/17 22:00) Pt Request For Service (01/23/17 16:00) Case Management Consult (01/23/17 16:00) Naloxone Inj (Narcan Inj) (01/23/17 16:00) Furosemide Inj (Lasix Inj) (01/23/17 18:00) Potassium Chloride (Kcl) (01/23/17 16:00) Labs Laboratory Tests Test 01/23/17 09:35 01/23/17 09:40 Blood Gas Puncture Site IV Blood Gas Patient Temperature 98.6 Venous Blood pH 7.37 Venous Blood Partial Pressure CO2 50 mmHg Venous Blood Partial Pressure O2 48 mmHg Venous Blood HCO3 28 mmol/L Venous Blood Oxygen Saturation 79 % Venous Blood Oxygen Content 13.0 Vol % Venous Blood Base Excess 3.4 mmol/L Oxygen Delivery Device NASAL CANNULA Blood Gas Liter Flow 2 L/M White Blood Count 14.9 TH/MM3 Red Blood Count 4.44 MIL/MM3 Hemoglobin 11.8 GM/DL Hematocrit 36.7 % Mean Corpuscular Volume 82.6 FL Mean Corpuscular Hemoglobin 26.5 PG Mean Corpuscular Hemoglobin Concent 32.0 % Red Cell Distribution Width 15.3 % Platelet Count 252 TH/MM3 Mean Platelet Volume 8.8 FL Neutrophils (%) (Auto) 82.0 % Lymphocytes (%) (Auto) 8.7 % Monocytes (%) (Auto) 6.2 % Eosinophils (%) (Auto) 2.9 % Basophils (%) (Auto) 0.2 % Neutrophils # (Auto) 12.2 TH/MM3 Lymphocytes # (Auto) 1.3 TH/MM3 Monocytes # (Auto) 0.9 TH/MM3 Eosinophils # (Auto) 0.4 TH/MM3 Basophils # (Auto) 0.0 TH/MM3 CBC Comment DIFF FINAL Differential Comment D-Dimer Quantitative (PE/DVT) 1.97 MG/L FEU Blood Urea Nitrogen 21 MG/DL Creatinine 0.81 MG/DL Random Glucose 101 MG/DL Total Protein 8.1 GM/DL Albumin 3.0 GM/DL Calcium Level 9.1 MG/DL Alkaline Phosphatase 179 U/L Aspartate Amino Transf (AST/SGOT) 14 U/L Alanine Aminotransferase (ALT/SGPT) 18 U/L Total Bilirubin 0.3 MG/DL Sodium Level 142 MEQ/L Potassium Level 3.2 MEQ/L Chloride Level 104 MEQ/L Carbon Dioxide Level 29.0 MEQ/L Anion Gap 9 MEQ/L Estimat Glomerular Filtration Rate 72 ML/MIN Troponin I 0.03 NG/ML Lipase 154 U/L MDM Medical Decision Making Medical Screen Exam Complete: Yes Emergency Medical Condition: Yes Differential Diagnosis CHF, COPD, PE, bronchitis. Narrative Course Patient roomed in emergency department, my general impression of the patient is a 61-year-old female had a general decline of health over the past few months ever since having a sudden cardiovascular collapse. She has CHF with EF of 30% , has not had a cardiac catheterization so far as I can tell since her third- degree heart block was diagnosed. Her pacemaker is functioning, EKG is nonischemic, troponin negative. D-dimer is elevated and a CT PE protocol was pursued and negative. He did however show some interstitial edema. The patient still with some difficulty breathing and tachypnea I think would benefit for some diuresis and admission to the hospital for observation status. Patient was discussed with Dr. Tijerina who was. Diagnosis Primary Impression: Shortness of breath Additional Impression: CHF exacerbation Admitting Information Admitting Physician Requests: Observation Condition: Stable Jose L Meadows MD Jan 23, 2017 09:20
[2017-01-23] MEDS ORDERED: ONDANSETRON HCL 4 MG/2 ML VIAL IV PUSH ONE (09:30)
[2017-01-23 09:45] LABS: BLOOD GAS VENOUS BASE EXCESS 3.4 mmol/L (-2-2); BLOOD GAS VENOUS HCO3 28 mmol/L (22-26); BLOOD GAS VENOUS O2 HGB SAT 79 % (70-76); BLOOD GAS VENOUS PCO2 50 mmHg (44-48); BLOOD GAS VENOUS PO2 48 mmHg (35-40); BLOOD GAS VENOUS pH 7.37 (7.360-7.400); CRITICAL VALUE NO; DRAW SITE IV; LITER FLOW 2 L/M; OXYGEN DEVICE NASAL CANNULA; STAT YES; TEMP CORR TO 98.6
--- NOTE | 2017-01-23 09:53 | RADRPT ---
EXAM DATE/TIME: 01/23/2017 09:28 [facility] COMPARISON: CHEST SINGLE AP, November 04, 2016, 1:34. INDICATIONS : Wheezing. Patient complains of nausea and vomiting. MEDICAL HISTORY : Chronic obstructive pulmonary disease. Deep venous thrombosis. Rheumatoid arthritis.CAD. SURGICAL HISTORY : Pacemaker. Cholecystectomy. Pacer 10/2016. Cardiac stents. ENCOUNTER: Initial ACUITY: 2 days PAIN SCORE: 0/10 LOCATION: Bilateral chest FINDINGS: Pacer on the left. The heart is enlarged mild interstitial edema. There is no pleural effusion or p neumothorax. CONCLUSION: Pacer, moderate cardiomegaly with mild interstitial edema suggesting failure. Beni Nava MD FACR on January 23, 2017 at 9:51 Board Certified Radiologist. This report was verified electronically.
[2017-01-23] MEDS ORDERED: ONDANSETRON HCL 4 MG/2 ML VIAL IM ONE (10:00)
[2017-01-23 10:04] LABS: AUTOMATED NEUTROPHIL # 12.2 TH/MM3 (1.8-7.7); BASOPHIL % 0.2 % (0.0-2.0); EOSINOPHIL # 0.4 TH/MM3 (0-0.4); EOSINOPHIL % 2.9 % (0.0-4.0); HEMATOCRIT 36.7 % (35.0-46.0); HEMO FLAGS DIFF FINAL; LYMPH % 8.7 % (9.0-44.0); LYMPHOCYTE # 1.3 TH/MM3 (1.0-4.8); MEAN CELL VOLUME 82.6 FL (80.0-100.0); MEAN CORPUSCULAR HEMOGLOBIN 26.5 PG (27.0-34.0); MONO % 6.2 % (0.0-8.0); PLATELET COUNT 252 TH/MM3 (150-450); RED BLOOD COUNT 4.44 MIL/MM3 (4.00-5.30); RED CELL DISTRIBUTION WIDTH 15.3 % (11.6-17.2); WHITE BLOOD COUNT 14.9 TH/MM3 (4.0-11.0)
[2017-01-23 10:28] LABS: ANION GAP 9 MEQ/L (5-15); AST (GOT) 14 U/L (15-37); BLOOD UREA NITROGEN 21 MG/DL (7-18); CHLORIDE 104 MEQ/L (98-107); GLOMERULAR FILTRATION RATE 72 ML/MIN (>89); POTASSIUM 3.2 MEQ/L (3.5-5.1); SODIUM (NA) 142 MEQ/L (136-145)
[2017-01-23 10:34] LABS: ALKALINE PHOSPHATASE 179 U/L (45-117); ALT (GPT) 18 U/L (10-53); TOTAL BILIRUBIN ADULT 0.3 MG/DL (0.2-1.0)
[2017-01-23] MEDS ORDERED: methylPREDNISolone SOD SUCC 125 MG/2 ML VIAL IV PUSH ONE (11:30)
[2017-01-23] MEDS ORDERED: PROMETHAZINE INJ 25 MG/ML VIAL IM ONE (11:30)
[2017-01-23] MEDS ORDERED: LORazepam 2 MG/ML VIAL IV PUSH ONE (11:30)
--- NOTE | 2017-01-23 14:31 | RADRPT ---
EXAM DATE/TIME: 01/23/2017 14:10 [facility] COMPARISON: CT PULMONARY ANGIOGRAM, August 19, 2014, 12:24. INDICATIONS : Shortness of breath IV CONTRAST: 50 cc Visipaque (iodixanol) IV RADIATION DOSE: 26.02 CTDIvol (mGy) MEDICAL HISTORY : Cardiovascular disease. Hypertension. Chronic obstructive pulmonary disease.DVT,diabetes SURGICAL HISTORY : Pacemaker. Cholecystectomy.Tubal ligation. ENCOUNTER: Initial ACUITY: 1 day PAIN SCALE: 5/10 LOCATION: chest TECHNIQUE: Volumetric scanning of the chest was performed using a pulmonary embolism protocol MIP images were re constructed. Using automated exposure control and adjustment of the mA and/or kV according to patien t size, radiation dose was kept as low as reasonably achievable to obtain optimal diagnostic quality images. DICOM format image data is available electronically for review and comparison. Follow-up recommendations for detected pulmonary nodules are based at a minimum on nodule size and pa tient risk factors according to Fleischner Society Guidelines. FINDINGS: PULMONARY ARTERIES: No filling defects are seen in the pulmonary arteries through the segmental level. LUNGS: Groundglass opacities are seen throughout both lungs. This is suspicious for inflammatory process. This is new from the comparison study. PLEURAE: There is no pleural thickening or pleural effusion. MEDIASTINUM: The heart is enlarged. There is no pericardial effusion. MUSCULOSKELETAL: Within normal limits for patient age. MISCELLANEOUS: The visualized upper abdominal organs demonstrate no acute abnormality. CONCLUSION: Negative or central pulmonary emboli New groundglass opacities in both lungs suspicious for inflammatory process. Beni Nava MD FACR on January 23, 2017 at 14:28 Board Certified Radiologist. This report was verified electronically.
[2017-01-23] MEDS ORDERED: SODIUM CHLORIDE 0.9% FLUSH 10 ML FLUSH IV FLUSH PRN (16:00)
[2017-01-23] MEDS ORDERED: FUROSEMIDE 40 MG/4 ML VIAL IV PUSH ONE (16:00)
[2017-01-23] MEDS ORDERED: POTASSIUM CHLORIDE 20 MEQ CONTROLLED RELEASE TAB PO ONE (16:00)
[2017-01-23] MEDS ORDERED: RESP: ALBUTEROL 2.5 MG/IPRATROPIUM 0.5 MG NEB (SCH) NEB ONE (16:00)
[2017-01-23] MEDS ORDERED: NALOXONE HCL 0.4 MG/ML AMP IV PUSH PRN (16:00)
--- NOTE | 2017-01-23 17:21 | HHI.HP ---
HPI Service [facility] Primary Care Physician Sean Silva DO Admission Diagnosis CHF exacerbation. Diagnoses: Travel History International Travel<30 Days: No Contact w/Intl Traveler <30 Da: No Traveled to Known Affected Are: No History of Present Illness has been short of breath and wheezing for 5 days and last night vomited 4x , bile yellow no abdominal pain except while throwing up no fever no cough short of breath from any minimal exertion legs have been swelling, but not worse than normal does not measure daily weights but felt like she gained weight has sleep apnea but not using cpap at night due to claustrophobia no diarrhea no chest pains/ no dizziness/ no syncope no burning or pain on urination no blood in urine or stool Review of Systems Except as stated in HPI: all other systems reviewed are Neg Past Family Social History Past Medical History htn dm chf cad x [place] 3 -dr norris pad with 3 stents in LE s/p ppm for 3rd degree av block s/p aicd copd- on home oxygen 2L Past Surgical History cholecystectomy coronary angiograms right ankle sx - oct 2016 s/p ppm and aicd - oct 2016 Allergies: Coded Allergies: codeine (Unverified Allergy, Intermediate, rash, 01/23/17) penicillin G (Unverified Allergy, Intermediate, RASH,FEVER, SEIZURE, 01/23) *MDRO Multi-Drug Resistant Organism (Verified Adverse Reaction, Unknown, Cleared 04/25/16, 01/23/17) MRSA (leg wound) 04/2015 MRSA PCR screen NEGATIVE - 03/26/16 & 04/25/16 Cleared per Infection Control Family History none that she knows of Social History quit smoking 2 yrs ago - smoked >20yrs total , >1ppd then no etoh abuse or drug abuse live with roommates ,no longer driving Physical Exam Vital Signs Vital Signs Date Time Temp Pulse Resp B/P (MAP) Pulse Ox O2 Delivery O2 Flow Rate FiO2 01/23/17 16:01 92 20 121/59 (79) 91 Nasal Cannula 2.00 01/23/17 15:55 89 Room Air 01/23/17 13:57 92 20 132/96 (108) 97 Nasal Cannula 2.00 01/23/17 11:00 86 20 97 Nasal Cannula 2.00 01/23/17 10:22 Nasal Cannula 3.00 01/23/17 09:12 23 97 Nasal Cannula 3.00 01/23/17 09:07 100 24 177/83 (114) 98 Physical Exam GENERAL: This is a well-nourished, well-developed patient, in no apparent distress. SKIN: No rashes, ecchymoses or lesions. Cool and dry. HEAD: Atraumatic. Normocephalic. No temporal or scalp tenderness. EYES: No scleral icterus. No injection or drainage. ENT: Nose without bleeding, purulent drainage or septal hematoma. Airway patent. NECK: Trachea midline. No JVD CARDIOVASCULAR: Regular rate and rhythm without murmurs, gallops, or rubs. RESPIRATORY: bilateral expiratory wheezing GASTROINTESTINAL: Abdomen soft, non-tender, nondistended. No guarding. MUSCULOSKELETAL: Extremities without clubbing, cyanosis, or edema.. No calf tenderness. NEUROLOGICAL: Awake and alert. Motor and sensory grossly within normal limits. Normal speech. Laboratory Laboratory Tests Test 01/23/17 09:35 01/23/17 09:40 01/23/17 16:20 Blood Gas Puncture Site IV Blood Gas Patient Temperature 98.6 Venous Blood pH 7.37 Venous Blood Partial Pressure CO2 50 Venous Blood Partial Pressure O2 48 Venous Blood HCO3 28 Venous Blood Oxygen Saturation 79 Venous Blood Oxygen Content 13.0 Venous Blood Base Excess 3.4 Oxygen Delivery Device NASAL CANNULA Blood Gas Liter Flow 2 White Blood Count 14.9 Red Blood Count 4.44 Hemoglobin 11.8 Hematocrit 36.7 Mean Corpuscular Volume 82.6 Mean Corpuscular Hemoglobin 26.5 Mean Corpuscular Hemoglobin Concent 32.0 Red Cell Distribution Width 15.3 Platelet Count 252 Mean Platelet Volume 8.8 Neutrophils (%) (Auto) 82.0 Lymphocytes (%) (Auto) 8.7 Monocytes (%) (Auto) 6.2 Eosinophils (%) (Auto) 2.9 Basophils (%) (Auto) 0.2 Neutrophils # (Auto) 12.2 Lymphocytes # (Auto) 1.3 Monocytes # (Auto) 0.9 Eosinophils # (Auto) 0.4 Basophils # (Auto) 0.0 CBC Comment DIFF FINAL Differential Comment D-Dimer Quantitative (PE/DVT) 1.97 Blood Urea Nitrogen 21 Creatinine 0.81 Random Glucose 101 Total Protein 8.1 Albumin 3.0 Calcium Level 9.1 Alkaline Phosphatase 179 Aspartate Amino Transf (AST/SGOT) 14 Alanine Aminotransferase (ALT/SGPT) 18 Total Bilirubin 0.3 Sodium Level 142 Potassium Level 3.2 Chloride Level 104 Carbon Dioxide Level 29.0 Anion Gap 9 Estimat Glomerular Filtration Rate 72 Troponin I 0.03 Lipase 154 Result Diagram: 01/23/1740 01/23/17939 Imaging Last 48 hours Impressions Chest X-Ray 01/23/1714 Signed Impressions: Service Date/Time: Monday, January 23, 2017 09:28 - CONCLUSION: Pacer, moderate cardiomegaly with mild interstitial edema suggesting failure. Beni Nava MD FACR CT Angiography 01/23/17 0000 Signed Impressions: Service Date/Time: Monday, January 23, 2017 14:10 - CONCLUSION: Negative or central pulmonary emboli New groundglass opacities in both lungs suspicious for inflammatory process. Beni Nava MD FACR Caprini VTE Risk Assessment Caprini VTE Risk Assessment: Mod/High Risk (score >= 2) Caprini Risk Assessment Model Point Value = 1 Point Value = 2 Point Value = 3 Point Value = 5 Age 41-60 Minor surgery BMI > 25 kg/m2 Swollen legs Varicose veins or History of unexplained or recurrent spontaneous Oral contraceptives or hormone replacement Sepsis (< 1 month) Serious lung disease, including pneumonia (< 1 month) Abnormal pulmonary function Acute myocardial infarction Congestive heart failure (< 1 month) History of inflammatory bowel disease Medical patient at bed rest Age 61-74 Arthroscopic surgery Major open surgery (> 45 min) Laparoscopic surgery (> 45 min) Malignancy Confined to bed (> 72 hours) Immobilizing plaster cast Central venous access Age >= 75 History of VTE Family history of VTE Factor V Leiden Prothrombin [id number] Lupus anticoagulant Anticardiolipin antibodies Elevated serum homocysteine Heparin-induced thrombocytopenia Other congenital or acquired thrombophilia Stroke (< 1 month) Elective arthroplasty Hip, pelvis, or leg fracture Acute spinal cord injury (< 1 month) Prophylaxis Regimen Total Risk Factor Score Risk Level Prophylaxis Regimen 0-1 Low Early ambulation 2 Moderate Order ONE of the following: *Sequential Compression Device (SCD) *Heparin 5000 units SQ BID 3-4 Higher Order ONE of the following medications: *Heparin 5000 units SQ TID *Enoxaparin/Lovenox 40 mg SQ daily (WT < 150 kg, CrCl > 30 mL/min) *Enoxaparin/Lovenox 30 mg SQ daily (WT < 150 kg, CrCl > 10-29 mL/min) *Enoxaparin/Lovenox 30 mg SQ BID (WT < 150 kg, CrCl > 30 mL/min) AND/OR *Sequential Compression Device (SCD) 5 or more Highest Order ONE of the following medications: *Heparin 5000 units SQ TID (Preferred with Epidurals) *Enoxaparin/Lovenox 40 mg SQ daily (WT < 150 kg, CrCl > 30 mL/min) *Enoxaparin/Lovenox 30 mg SQ daily (WT < 150 kg, CrCl > 10-29 mL/min) *Enoxaparin/Lovenox 30 mg SQ BID (WT < 150 kg, CrCl > 30 mL/min) AND *Sequential Compression Device (SCD) Assessment and Plan Assessment and Plan Impression: dyspnea on exertion acute on chronic chf hypokalemia htn dm chf cad x [place] 3 -dr norris pad with 3 stents in [place] s/p ppm for 3rd degree av block s/p aicd copd- on home oxygen 2L Plan: bumex 2mg iv q12hrs serial enz and ekgs suspects non compliance with diet and water intake also is wheezing0 component of copd nebs prn and scheduled repalce k resume home meds dvt prophylaxis with w lovenox Anil Grant MD Jan 23, 2017 17:21
[2017-01-23] MEDS ORDERED: traMADol HCL 50 MG TAB PO PRN (17:30)
[2017-01-23] MEDS ORDERED: RESP: ALBUTEROL 2.5 MG/IPRATROPIUM 0.5 MG NEB (PRN) NEB (17:30)
[2017-01-23 17:32] LABS: CKMB 3.3 NG/ML (0.5-3.6)
[2017-01-23] MEDS ORDERED: FUROSEMIDE 40 MG/4 ML VIAL IV PUSH SCH (18:00)
--- NOTE | 2017-01-23 18:19 | EKG ---
Date Performed: 01/23/2017 Time Performed: 10:09:26 PTAGE: 61 years EKG: ELECTRONIC VENTRICULAR PACEMAKER ABNORMAL RHYTHM ECG Compared to prior tracing no significa nt change DOCTOR: Joselin Valente Interpretating Date/Time 01/23/2017 18:19:04
[2017-01-23] MEDS ORDERED: GLIP5TAB8 PO (18:32)
[2017-01-23] MEDS ORDERED: LISI-515 PO (18:32)
[2017-01-23] MEDS ORDERED: BUME2TAB PO (18:32)
[2017-01-23] MEDS: BUMETANIDE INJ 1 MG/4 ML VIAL IV PUSH SCH (18:42)
[2017-01-23] MEDS: GABAPENTIN 300 MG CAP PO SCH (18:42)
--- NOTE | 2017-01-23 19:26 | RADRPT ---
EXAM DATE/TIME: 01/23/2017 18:08 [facility] COMPARISON: US LEG BILATERAL VENOUS DOPPLER, November 01, 2016, 18:10. INDICATIONS : Shortness of breath. MEDICAL HISTORY : Myocardial infarction. Congestive heart failure. Hypercholesterolemia. Bilateral cataracts. Periphera l neuropathy. Head trauma. Migraines. Coronary artery disease. Anticoagulant therapy. Hypertension. D eep vein thrombosis. COPD. Sleep apnea. Irritable bowel. GERD. . Renal failure. Arthritis. R LS. Diabetes. Measles. MRSA. SURGICAL HISTORY : Tonsillectomy.Coronary artery stent. Pacemaker.Bilateral Lasix. Cholecystectomy. Tubal ligation. Cyst removal. ENCOUNTER: Subsequent ACUITY: 1 day PAIN SCORE: 7/10 LOCATION: Bilateral legs. TECHNIQUE: Venous ultrasound of the left and right leg was performed from the inguinal ligament to the proximal calf. Real-time, color Doppler and spectral tracing, compression and augmentation techniques were us ed. FINDINGS: RIGHT LEG: There is normal compressibility of the deep venous system from the inguinal region to the proximal ca lf. No echogenic clot is seen in the lumen of the common femoral, femoral, popliteal, and posterior tibial veins. There is a normal response of the venous system to proximal and distal augmentation an d respiration. LEFT LEG: There is normal compressibility of the deep venous system from the inguinal region to the proximal ca lf. No echogenic clot is seen in the lumen of the common femoral, femoral, popliteal, and posterior tibial veins. There is a normal response of the venous system to proximal and distal augmentation an d respiration. CONCLUSION: No DVT. Myles Galvan MD on January 23, 2017 at 19:24 Board Certified Radiologist. This report was verified electronically.
[2017-01-23] MEDS: RESP: ALBUTEROL 2.5 MG/IPRATROPIUM 0.5 MG NEB (SCH) NEB (20:05)
[2017-01-23] MEDS: CARVEDILOL 3.125 MG TAB PO SCH (20:58)
[2017-01-23] MEDS: SODIUM CHLORIDE 0.9% FLUSH 10 ML FLUSH IV FLUSH SCH (20:58)
[2017-01-23 23:45] LABS: CKMB 3.5 NG/ML (0.5-3.6)
[2017-01-24 00:53] VITALS: BP 132/64; PULSE 84; RESP 18; TEMP 98.2; O2SAT 95
[2017-01-24] MEDS: RESP: ALBUTEROL 2.5 MG/IPRATROPIUM 0.5 MG NEB (SCH) NEB ×2 (02:35→10:59)
[2017-01-24 05:10] VITALS: BP 110/57; PULSE 73; RESP 18; TEMP 98.1; O2SAT 97
[2017-01-24] MEDS ORDERED: DEXTROSE 50% IN WATER 50 ML VIAL(D50) IV PUSH PRN (06:00)
[2017-01-24] MEDS ORDERED: GLUCAGON 1 MG/ML VIAL OTHER PRN (06:00)
[2017-01-24 07:01] LABS: AUTOMATED NEUTROPHIL # 7.4 TH/MM3 (1.8-7.7); BASOPHIL % 0.1 % (0.0-2.0); EOSINOPHIL % 0.3 % (0.0-4.0); HEMATOCRIT 27.7 % (35.0-46.0); HEMO FLAGS DIFF FINAL; LYMPH % 17.6 % (9.0-44.0); LYMPHOCYTE # 1.8 TH/MM3 (1.0-4.8); MEAN CELL VOLUME 82.7 FL (80.0-100.0); MEAN CORPUSCULAR HEMOGLOBIN 27.2 PG (27.0-34.0); MEAN CORPUSCULAR HGB CONC 32.8 % (32.0-36.0); MONO % 7.4 % (0.0-8.0); NEUT % 74.6 % (16.0-70.0); PLATELET COUNT 189 TH/MM3 (150-450); RED BLOOD COUNT 3.35 MIL/MM3 (4.00-5.30); RED CELL DISTRIBUTION WIDTH 15.3 % (11.6-17.2)
[2017-01-24 07:35] LABS: BICARBONATE 30.7 MEQ/L (21.0-32.0); POTASSIUM 3.8 MEQ/L (3.5-5.1)
[2017-01-24] MEDS: INSULIN ASPART SUPPLEMENTAL SCALE SQ SCH ×2 (08:00→13:38)
[2017-01-24 08:15] VITALS: BP 120/58; PULSE 67; PULSE 79; RESP 20; TEMP 97.9; O2SAT 99
[2017-01-24] MEDS ORDERED: PANTOPRAZOLE SOD 20 MG DELAYED RELEASE TAB PO SCH (09:00)
[2017-01-24] MEDS ORDERED: ASPIRIN EC 81 MG TABEC PO SCH (09:00)
[2017-01-24] MEDS ORDERED: CLOPIDOGREL 75 MG TAB PO SCH (09:00)
[2017-01-24] MEDS ORDERED: ENOXAPARIN SODIUM 40 MG/0.4 ML SYRINGE SQ SCH (09:00)
[2017-01-24] MEDS ORDERED: INSULIN DETEMIR 100 UNITS/ML VIAL SQ SCH (09:00)
[2017-01-24] MEDS ORDERED: LISINOPRIL 20 MG TAB PO SCH (09:00)
[2017-01-24] MEDS ORDERED: ATORVASTATIN 80 MG TAB PO SCH (09:00)
[2017-01-24] MEDS ORDERED: glipiZIDE 5 MG TAB PO SCH (09:00)
[2017-01-24] MEDS: GABAPENTIN 300 MG CAP PO SCH ×2 (11:03→13:38)
[2017-01-24] MEDS: SODIUM CHLORIDE 0.9% FLUSH 10 ML FLUSH IV FLUSH SCH (11:03)
[2017-01-24] MEDS: CARVEDILOL 3.125 MG TAB PO SCH (11:03)
[2017-01-24] MEDS: BUMETANIDE INJ 1 MG/4 ML VIAL IV PUSH SCH (11:03)
[2017-01-24 12:20] VITALS: PULSE 87
[2017-01-24 12:45] VITALS: BP 133/65; PULSE 81; RESP 18; TEMP 98.1; O2SAT 96
--- NOTE | 2017-01-24 14:42 | HHI.PR ---
Subjective Remarks Follow-up CHF and COPD exacerbation. Improved shortness of breath states she is back to her baseline. She has chronic respiratory failure on 2 L nasal cannula. She wants to go home. Discussed with RN Objective Vitals Vital Signs Date Time Temp Pulse Resp B/P (MAP) Pulse Ox O2 Delivery O2 Flow Rate FiO2 01/24/17 12:45 98.1 81 18 133/65 (87) 96 01/24/17 10:59 Nasal Cannula 2.00 01/24/17 08:15 97.9 79 20 120/58 (78) 99 01/24/17 05:10 98.1 73 18 110/57 (74) 97 01/24/17 00:53 98.2 84 18 132/64 (86) 95 01/23/17 19:53 97 20 156/75 (102) 93 01/23/17 18:44 98.8 94 18 132/69 (90) 95 01/23/17 17:31 01/23/17 16:01 92 20 121/59 (79) 91 Nasal Cannula 2.00 01/23/17 15:55 89 Room Air I/O 01/23/17 01/23/17 01/23/17 01/24/17 01/24/17 01/24/17 07:00 15:00 23:00 07:00 15:00 23:00 # Voids 1 Result Diagram: 01/24/17 0605 01/24/17 0605 Imaging Last Impressions Chest X-Ray 01/23/17 0914 Signed Impressions: Service Date/Time: Monday, January 23, 2017 09:28 - CONCLUSION: Pacer, moderate cardiomegaly with mild interstitial edema suggesting failure. Beni Nava MD FACR Lower Extremity Ultrasound 01/23/17 0000 Signed Impressions: Service Date/Time: Monday, January 23, 2017 18:08 - CONCLUSION: No DVT. Myles Galvan MD CT Angiography 01/23/17 0000 Signed Impressions: Service Date/Time: Monday, January 23, 2017 14:10 - CONCLUSION: Negative or central pulmonary emboli New groundglass opacities in both lungs suspicious for inflammatory process. Beni Nava MD FACR Objective Remarks GENERAL: Well-developed, obese in no distress on nasal cannula SKIN: Warm and dry. HEAD: Atraumatic. Normocephalic. EYES: Pupils equal and round. No scleral icterus. No injection or drainage. ENT: No nasal bleeding or discharge. Mucous membranes pink and moist. NECK: Trachea midline. No JVD. CARDIOVASCULAR: Regular rate and rhythm. RESPIRATORY: No accessory muscle use. Decreased Breath sounds equal bilaterally. GASTROINTESTINAL: Abdomen soft, non-tender, nondistended. MUSCULOSKELETAL: Extremities without clubbing, cyanosis, or edema. No obvious deformities. NEUROLOGICAL: Awake and alert. No obvious cranial nerve deficits. Motor grossly within normal limits. Five out of 5 muscle strength in the arms and legs. Normal speech. Procedures Non- A/P Problem List: (1) COPD (chronic obstructive pulmonary disease) ICD Code: J44.9 - Chronic obstructive pulmonary disease Status: Chronic (2) CHF exacerbation ICD Code: I50.9 - Heart failure, unspecified Status: Acute Assessment and Plan Dyspnea on exertion secondary to CHF and COPD exacerbation. Improved she is now back to her baseline. Acute on chronic systolic heart failure exacerbation secondary to noncompliance. Patient educated. Continue diuresis with Bumex, lisinopril and Coreg. Follow-up renal function outpatient hypokalemia. Replaced Anemia hemoglobin 9.1. No gross bleeding. Outpatient follow-up. Check Hemoccult Chronic medical conditions of htn, dm, cad x GA 3 -dr norris, pad with 3 stents in LE, s/p ppm for 3rd degree av block and s/p aicd. Continue outpatient medications as appropriate DVT prophylaxis with SCD Discharge Planning Discharge patient to home Condition on discharge: Improved Regular Diet as tolerated Ad Jillian activity Rx written: Repeat CBC and BMP in one week with Hemoccult Follow-up with primary care physician Andres Lennon MD Jan 24, 2017 14:42
[2017-01-24] MEDS ORDERED: BUME2TAB PO (14:51)
--- NOTE | 2017-01-24 14:53 | HHI.DCPOC ---
Discharge Care Plan Diagnosis: (1) COPD (chronic obstructive pulmonary disease) (2) CHF exacerbation (3) Shortness of breath (4) DM (diabetes mellitus) (5) CAD (coronary artery disease) (6) Hypertension (7) Hyperlipidemia (8) Anemia (9) MICHELLE (acute kidney injury) Goals to Promote Your Health * To prevent worsening of your condition and complications * To maintain your health at the optimal level Directions to Meet Your Goals Take your medications as prescribed Follow your dietary instruction Follow activity as directed Keep your appointments as scheduled Take your immunizations and boosters as scheduled If your symptoms worsen call your PCP, if no PCP go to Urgent Care Center or Emergency Room Smoking is Dangerous to Your Health. Avoid second hand smoke Call the 24-hour hour crisis hotline for domestic abuse at Nellie Templeton PA-C Jan 24, 2017 2:52 pm
[2017-01-24] MEDS ORDERED: ALBUAER3 INH (14:54)
--- NOTE | 2017-01-24 16:20 | EKG ---
Date Performed: 01/24/2017 Time Performed: 01:04:02 PTAGE: 61 years EKG: ELECTRONIC VENTRICULAR PACEMAKER ABNORMAL RHYTHM ECG PREVIOUS TRACING : 01/23/2017 16.29 Compared to prior tracing no significant change DOCTOR: Eliane Gabriel Interpretating Date/Time 01/24/2017 16:19:30
--- NOTE | 2017-01-24 16:20 | EKG ---
Date Performed: 01/23/2017 Time Performed: 16:29:39 PTAGE: 61 years EKG: ELECTRONIC VENTRICULAR PACEMAKER ABNORMAL RHYTHM ECG PREVIOUS TRACING : 01/23/2017 10.09 Compared to prior tracing no significant change DOCTOR: Eliane Gabriel Interpretating Date/Time 01/24/2017 16:19:19
[2017-01-24] MEDS ORDERED: GABAPENTIN 300 MG CAP PO SCH (21:00)
== END 2017-01-24 16:17 | disposition home or self-care (01) ==
LOC: NEPE 08:56 → NEDA 16:02 → NEPGCP 17:40
PROVIDERS: ADMIT Internal Medicine; ATTEND Internal Medicine
DX: R06.00 Dyspnea, unspecified (principal); I11.0 Hypertensive heart disease with heart failure; I50.23 Acute on chronic systolic (congestive) heart failure; J44.1 Chronic obstructive pulmonary disease with (acute) exacerbation; E87.6 Hypokalemia; R06.82 Tachypnea, not elsewhere classified; R94.31 Abnormal electrocardiogram [ECG] [EKG]; D64.9 Anemia, unspecified; R11.2 Nausea with vomiting, unspecified; I25.10 Atherosclerotic heart disease of native coronary artery without angina pectoris; I25.2 Old myocardial infarction; E11.9 Type 2 diabetes mellitus without complications; I44.2 Atrioventricular block, complete; F40.240 Claustrophobia; G47.30 Sleep apnea, unspecified; M06.9 Rheumatoid arthritis, unspecified; E78.00 Pure hypercholesterolemia, unspecified; K21.9 Gastro-esophageal reflux disease without esophagitis; M19.90 Unspecified osteoarthritis, unspecified site; Z91.19 Patient's noncompliance with other medical treatment and regimen; Z79.899 Other long term (current) drug therapy; Z79.82 Long term (current) use of aspirin; Z86.718 Personal history of other venous thrombosis and embolism; Z95.5 Presence of coronary angioplasty implant and graft; Z99.81 Dependence on supplemental oxygen; Z95.810 Presence of automatic (implantable) cardiac defibrillator
CPT/HCPCS: 71010; 71275; 80048; 80053; 82550; 82552; 82805; 82948; 83690; 83880; 84484; 85025; 85379; 93005; 93970; 94640; 94664; 96372; 96374; 96375; 97162; 99285; G0378; G8987; G8988; J1650; J1815; J1940; J2060; J2405; J2550; J2930; Q9967

== ENCOUNTER 2017-09-03 04:57 | Inpatient (IN) ==
[2017-09-07] MEDS ORDERED: Insulin Detemir Inj 1,000 UNIT/10 ML Vial SQ ONE (22:48)
[2017-09-08] MEDS ORDERED: Acetaminophen 500 MG Tablet PO PRN
[2017-09-08] MEDS ORDERED: traMADol/Acetaminophen 37.5/325 MG Tablet PO PRN (00:01)
[2017-09-08] MEDS ORDERED: Dextrose 50% in Water 50 ML Vial IV.PUSH PRN (00:01)
[2017-09-08] MEDS ORDERED: ceFAZolin 2 GM Premix Inj 2 GM/50 ML PIGGYBACK IV.SIG ONE (02:20)
[2017-09-08] MEDS: ceFAZolin 2 GM Premix Inj 2 GM/50 ML PIGGYBACK IV.SIG SCH ×3 (02:25→17:06)
[2017-09-08] MEDS: Heparin - SQ 10,000 UNITS/ML Vial SQ SCH ×3 (05:42→22:24)
[2017-09-08] MEDS: Linezolid 600 MG Tablet PO SCH ×3 (05:46→20:39)
[2017-09-08] MEDS: Albumin Human 25% Inj 100 ML IV.SIG SCH ×2 (06:25→17:05)
[2017-09-08 08:18] LABS: Hematocrit 34.3 % (35.0-46.0); Hemoglobin 10.6 gm/dL (11.6-15.3); Mean Corpuscular Hemoglobin 23.8 pg (27.0-34.0); Mean Corpuscular Volume 77.1 fL (80.0-100.0); Mean Platelet Volume 8.7 fL (7.0-11.0); Platelet Count 295 th/mm3 (150-450); Red Blood Count 4.45 mil/mm3 (4.00-5.30); Red Cell Distribution Width 16.1 % (11.6-17.2); White Blood Count 8.4 th/mm3 (4.0-11.0)
[2017-09-08 08:27] LABS: Calcium 9.4 mg/dL (8.5-10.1); Carbon Dioxide 36.5 meq/L (21.0-32.0); Potassium 3.7 meq/L (3.5-5.1)
[2017-09-08 08:35] LABS: Mean Corpuscular HGB Conc 30.9 % (32.0-36.0)
[2017-09-08] MEDS: Spironolactone 25 MG Tablet PO SCH (08:49)
[2017-09-08] MEDS: glipiZIDE 5 MG Tablet PO SCH (08:49)
[2017-09-08] MEDS: Pantoprazole Sodium 20 MG DR Tablet PO SCH (08:50)
[2017-09-08] MEDS: Gabapentin 300 MG Capsule PO SCH ×3 (08:50→17:07)
[2017-09-08] MEDS: Lactobacillus Acidophilus/L. Spores Tablet PO SCH ×2 (08:50→20:42)
[2017-09-08] MEDS: Lisinopril 20 MG Tablet PO SCH ×2 (08:51→20:39)
[2017-09-08] MEDS: metOLazone 5 MG Tablet PO SCH (08:51)
[2017-09-08] MEDS ORDERED: IPRATROPIUM INH SCH (09:00)
[2017-09-08] MEDS ORDERED: ALBUTEROL INH SCH (09:00)
[2017-09-08] MEDS ORDERED: Insulin Detemir Inj 1,000 UNIT/10 ML Vial SQ SCH (09:00)
[2017-09-08] MEDS: Insulin NovoLOG Aspart Correctional Sugar Inj SQ SCH ×4 (09:42→22:16)
--- NOTE | 2017-09-08 09:42 | P.PN ---
Subjective Interval history: Mrs. Clayton was afebrile with intermittent HTN overnight (SBP 150's-160's); normal saturations on 3 L O2 via NC. Output-2350ml. Weight - (gain of 0.4kg) Patient reports that she is doing well. Normal breathing. Normal urination on diuresis. She hreports improvement in her lower extremities. Patient reports constipation recently. Physical Exam Vital signs: Vital Signs 09/07/17 20:00 09/08/17 00:00 Temperature 98.1 F 98 F Pulse Rate 101 H 103 H Respiratory Rate 20 18 Blood Pressure 158/89 H 169/81 H Pulse Oximetry 97 95 Intake & Output 09/07/17 09/08/17 09/08/17 18:59 06:59 18:59 Intake Total 600 / 600 Output Total 3000 / 3000 Balance -2400 / -2400 Weight 140.2 kg 140.6 kg Intake: Oral 600 / 600 Output: Urine 3000 / 3000 Narrative: GENERAL: Morbidly obese; resting in no acute distress SKIN: Diffuse pitting edema/anasarca involving the legs, thighs, and abdomen. Scaling of skin of distal LE's; scattered scabs CARDIOVASCULAR: Regular rate and rhythm. No murmur appreciated. RESPIRATORY: On 3 L O2 via NC. Normal rate. Bibasilar crackles. GASTROINTESTINAL: Abdomen soft, non-tender, nondistended. Normoactive bowel sounds MUSCULOSKELETAL: Bilateral lower extremity with evidence of chronic lymphedema, pitting edema with erythema and areas of purulent drainage, NEUROLOGICAL: Awake and alert. No obvious cranial nerve deficits. Normal speech. PSYCHIATRIC: Appropriate mood and affect; insight and judgment normal Results - Labs CBC & Chem 7: 09/08/17 05:20 09/08/17 05:20 Laboratory Results - last 24 hr 09/05/17 09/05/17 09/06/17 09:31 10:56 06:08 WBC 8.6 RBC 4.13 Hgb 10.0 L Hct 32.2 L MCV 78.0 L MCH 24.3 L MCHC 31.1 L RDW 16.1 Plt Count 264 MPV 8.7 Neut % (Auto) 71.6 H Lymph % (Auto) 15.3 [place] % (Auto) 8.7 H Eos % (Auto) 3.8 Baso % (Auto) 0.6 Neut # (Auto) 6.2 Lymph # (Auto) 1.3 [place] # (Auto) 0.7 Eos # (Auto) 0.3 Baso # (Auto) 0.0 CBC Comment DIFF FINAL Sodium 140 Potassium 4.6 Chloride 103 Carbon Dioxide 30.2 Anion Gap 7 BUN 28 H Creatinine 1.11 H 0.89 Estimated GFR 50 L 65 L POC Glucose Random Glucose 132 H Calcium 8.3 L B-Natriuretic Peptide 09/08/17 09/08/17 09/08/17 05:20 05:20 05:20 WBC 8.4 RBC 4.45 Hgb 10.6 L Hct 34.3 L MCV 77.1 L MCH 23.8 L MCHC 30.9 L RDW 16.1 Plt Count 295 MPV 8.7 Neut % (Auto) Lymph % (Auto) [place] % (Auto) Eos % (Auto) Baso % (Auto) Neut # (Auto) Lymph # (Auto) [place] # (Auto) Eos # (Auto) Baso # (Auto) CBC Comment Sodium 143 Potassium 3.7 Chloride 98 Carbon Dioxide 36.5 H Anion Gap 9 BUN 26 H Creatinine 0.94 Estimated GFR 61 L POC Glucose Random Glucose 53 L Calcium 9.4 B-Natriuretic Peptide 425 H 09/08/17 09:06 WBC RBC Hgb Hct MCV MCH MCHC RDW Plt Count MPV Neut % (Auto) Lymph % (Auto) [place] % (Auto) Eos % (Auto) Baso % (Auto) Neut # (Auto) Lymph # (Auto) [place] # (Auto) Eos # (Auto) Baso # (Auto) CBC Comment Sodium Potassium Chloride Carbon Dioxide Anion Gap BUN Creatinine Estimated GFR POC Glucose 66 L Random Glucose Calcium B-Natriuretic Peptide - Imaging Laboratory Results WBC 8.4 th/mm3 (4.0-11.0) 09/08/17 05:20 RBC 4.45 mil/mm3 (4.00-5.30) 09/08/17 05:20 Hgb 10.6 gm/dL (11.6-15.3) L 09/08/17 05:20 Hct 34.3 % (35.0-46.0) L 09/08/17 05:20 MCV 77.1 fL (80.0-100.0) L 09/08/17 05:20 MCH 23.8 pg (27.0-34.0) L 09/08/17 05:20 MCHC 30.9 % (32.0-36.0) L 09/08/17 05:20 RDW 16.1 % (11.6-17.2) 09/08/17 05:20 Plt Count 295 th/mm3 (150-450) 09/08/17 05:20 MPV 8.7 fL (7.0-11.0) 09/08/17 05:20 Neut % (Auto) 71.6 % (16.0-70.0) H 09/05/17 10:56 Lymph % (Auto) 15.3 % (9.0-44.0) 09/05/17 10:56 [place] % (Auto) 8.7 % (0.0-8.0) H 09/05/17 10:56 Eos % (Auto) 3.8 % (0.0-4.0) 09/05/17 10:56 Baso % (Auto) 0.6 % (0.0-2.0) 09/05/17 10:56 Neut # (Auto) 6.2 TH/MM3 (1.8-7.7) 09/05/17 10:56 Lymph # (Auto) 1.3 TH/MM3 (1.0-4.8) 09/05/17 10:56 [place] # (Auto) 0.7 TH/MM3 (0-0.9) 09/05/17 10:56 Eos # (Auto) 0.3 TH/MM3 (0-0.4) 09/05/17 10:56 Baso # (Auto) 0.0 TH/MM3 (0-0.2) 09/05/17 10:56 CBC Comment DIFF FINAL 09/05/17 10:56 PT 10.8 SEC (9.8-11.6) 09/03/17 03:30 INR 1.1 RATIO 09/03/17 03:30 APTT 24.3 SEC (24.3-30.1) 09/03/17 03:30 Sodium 143 meq/L (136-145) 09/08/17 05:20 Potassium 3.7 meq/L (3.5-5.1) 09/08/17 05:20 Chloride 98 meq/L (98-107) 09/08/17 05:20 Carbon Dioxide 36.5 meq/L (21.0-32.0) H 09/08/17 05:20 Anion Gap 9 meq/L (5-15) 09/08/17 05:20 BUN 26 mg/dL (7-18) H 09/08/17 05:20 Creatinine 0.94 mg/dL (0.50-1.00) 09/08/17 05:20 Estimated GFR 61 mL/min (>89) L 09/08/17 05:20 POC Glucose 66 mg/dl (68-110) L 09/08/17 09:06 Random Glucose 53 mg/dL (74-106) L 09/08/17 05:20 Lactic Acid 1.0 mmol/L (0.4-2.0) 09/03/17 03:55 Calcium 9.4 mg/dL (8.5-10.1) 09/08/17 05:20 Magnesium 1.8 MG/DL (1.5-2.5) 09/03/17 03:30 Total Bilirubin 0.2 MG/DL (0.2-1.0) 09/03/17 11:45 AST 9 U/L (15-37) L 09/03/17 11:45 ALT 9 U/L (10-53) L 09/03/17 11:45 Alkaline Phosphatase 184 U/L (45-117) H 09/03/17 11:45 Total Creatine Kinase 232 U/L (26-192) H 09/03/17 22:34 CK-MB (CK-2) 4.5 NG/ML (0.5-3.6) H 09/03/17 22:34 CK-MB (CK-2) % 1.9 % (0.0-4.0) 09/03/17 22:34 Troponin I LESS THAN 0.02 NG/ML (0.02-0.05) L 09/03/17 22:34 B-Natriuretic Peptide 425 pg/mL (0-100) H 09/08/17 05:20 Total Protein 6.2 GM/DL (6.4-8.2) L 09/03/17 11:45 Albumin 1.8 GM/DL (3.4-5.0) L 09/03/17 11:45 Urine Color YELLOW (YELLW/STRAW) 09/03/17 07:40 Urine Turbidity HAZY (CLEAR) H 09/03/17 07:40 Urine pH 5.0 (5.0-8.5) 09/03/17 07:40 Ur Specific [place] 1.016 (1.002-1.035) 09/03/17 07:40 Urine Protein >=500 mg/dL (NEG-TRACE) 09/03/17 07:40 Urine Glucose (UA) >=500 mg/dL (NEG) 09/03/17 07:40 Urine Ketones NEG mg/dL (NEG) 09/03/17 07:40 Urine Occult Blood SMALL (NEG) H 09/03/17 07:40 Urine Nitrite NEG (NEG) 09/03/17 07:40 Urine Bilirubin NEG (NEG) 09/03/17 07:40 Urine Urobilinogen LESS THAN 2 mg/dL (LESS THAN 2) 09/03/17 07:40 Ur Leukocyte Esterase NEG (NEG) 09/03/17 07:40 Urine RBC 2 /hpf (0-3) 09/03/17 07:40 Urine WBC 4 /hpf (0-5) 09/03/17 07:40 Ur Squamous Epith Cells 5 /hpf (0-5) 09/03/17 07:40 Urine Bacteria RARE /hpf (NONE) H 09/03/17 07:40 Hyaline Casts 10 /lpf (RARE) 09/03/17 07:40 Micro UA Comment CULT NOT INDICATED 09/03/17 07:40 Assessment and Plan - Assessment (1) CHF (congestive heart failure) Code(s): I50.9 - Heart failure, unspecified Status: Acute (2) Cellulitis Code(s): L03.90 - Cellulitis, unspecified Status: Acute (3) COPD (chronic obstructive pulmonary disease) Code(s): J44.9 - Chronic obstructive pulmonary disease, unspecified Status: Chronic (4) T2DM (type 2 diabetes mellitus) Code(s): E11.9 - Type 2 diabetes mellitus without complications Status: Acute (5) HTN (hypertension) Code(s): I10 - Essential (primary) hypertension Status: Chronic (6) PAD (peripheral artery disease) Code(s): I73.9 - Peripheral vascular disease, unspecified Status: Chronic - Plan 62 Y/O female with PMH CHF with an EF of 30-35% based on echo of 7/13/17, T2DM, COPD/Asthma on O2, PAD w stents, hx of DVT not on anticoagulation, HTN, hyperlipidemia, GERD, neuropathy presented to the emergency room with complaints of swelling in her lower extremities and abdomen. Bilateral lower extremity edema Impression: Bilateral LE edema in setting of CHF and LE cellulitis. Lower extremity Doppler ultrasound negative for DVT, mildly enlarged inguinal lymph nodes -Continue CHF treatment -Diuresis with Lasix IV, home metolazone -monitor fluid balance -Cellulitis treatment -Management per ID -Continue Zyvox (changed from Ancef) -Wound care following -Leg elevation -Continue pain control with Ultram/[place] Acute systolic CHF exacerbation Impression: CXR showing cardiomegaly, pulmonary edema. EMR reviewed, echo with EF 30-35%. ACS ruled out with negative serial cardiac enzymes 3 -Cardiology following -Continue Lasix IV diuresis -Continue Metolazone 5mg daily -Continue JAROD, BB, Spironolactone -Monitor strict I's and O's -Fluid and salt restrictions COPD with chronic respiratory failure, O2 dependent: Chronic, with mild wheezing on exam likely exacerbated by fluid overload -Continue duo nebs 4 times daily -Incentive spirometer, Acapella -O2 as needed Diabetes mellitus: Chronic Impression: Chronic DM on Lantus Glucose 53 mg/dl this morning. -Continue patient's long-acting insulin (lantus converted to levemir); will hold Levemir -Continue home Glipizide -Monitor Accu-Cheks, cover with sliding scale insulin -Diabetic diet Accelerated hypertension: BP 190/89 upon arrival Impression: SBP ~160's recently -Continue patient's home medications including Coreg 3.125 mg bid -Continue lisinopril 20 mg twice daily -Monitor BP, adjust antihypertensives as neededd PAD with stents of lower extremities: Chronic -Continue patient's aspirin, Plavix, Lipitor Hyperlipidemia: Chronic -Continue patient's statin All other medical conditions stable, continue home medications as appropriate. DVT prophylaxis: Heparin sq Discussed Condition With: Nursing staff Discharge Planning: Continue IV diuresis and treatment for cellulitis. Discharge planning based on progress. (1) CHF (congestive heart failure) Qualifiers: Heart failure type: unspecified Heart failure chronicity: acute on chronic Qualified Code(s): I50.9 - Heart failure, unspecified (2) Cellulitis Qualifiers: Site of cellulitis: extremity Site of cellulitis of extremity: lower extremity Laterality: unspecified laterality Qualified Code(s): L03.119 - Cellulitis of unspecified part of limb (3) COPD (chronic obstructive pulmonary disease) Qualifiers: COPD type: unspecified COPD Qualified Code(s): J44.9 - Chronic obstructive pulmonary disease, unspecified (4) T2DM (type 2 diabetes mellitus) Qualifiers: 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
--- NOTE | 2017-09-08 18:21 | P.PNCA ---
Subjective Interval history: Resting in bed without distress. Diuresing well. STill c/o abdominal swelling. O2 3L nc. Physical Exam Vital signs: Vital Signs 09/07/17 20:00 09/08/17 00:00 09/08/17 08:00 Temperature 98.1 F 98 F 98.3 F Pulse Rate 101 H 103 H 91 H Respiratory Rate 20 18 20 Blood Pressure 158/89 H 169/81 H 149/77 H Pulse Oximetry 97 95 94 L 09/08/17 12:00 09/08/17 14:38 09/08/17 16:21 Temperature 97.3 F L Pulse Rate 89 Respiratory Rate 20 20 Blood Pressure 133/63 Pulse Oximetry 95 95 Intake & Output 09/07/17 09/08/17 09/08/17 18:59 06:59 18:59 Intake Total 600 / 600 50 / 50 150 / 150 Output Total 3000 / 3000 Balance -2400 / -2400 50 / 50 150 / 150 Weight 140.2 kg 140.6 kg Intake: IV 50 / 50 150 / 150 Flexbumin 25% Inj 100 ML @ As 100 / 100 Directed IV.SIG Q12H GUICHO Rx#: [id number] Ancef 2 GM Premix Inj 2 gm In 50 / 50 50 / 50 50 ml @ 100 mls/hr IV.SIG Q8H GUICHO Rx#:[id number] Oral 600 / 600 Output: Urine 3000 / 3000 - Constitutional no acute distress - Routine HEENT Exam Head: Present: normocephalic Eye: Present: PERRL ENT: Present: mucous membranes moist - Routine Neck Exam Present: supple - Routine Respiratory Exam Present: diminished air movement Comments: o2 3l nc - Routine Cardiovascular Exam Present: RRR - Routine Abdominal Exam Present: soft Comments: morbidly obese - Routine Extremities Exam Present: edema Comments: chronic venous stasis changes - Routine Skin Exam Present: intact, cracked - Routine Neurological Exam Present: alert, oriented X3, moving all extremities, normal speech - Detailed Neurological Exam: Coma Scale Eye Opening: Spontaneous Verbal Response: Oriented Motor Response: Obey commands [place] Coma Scale Total: 15 - Routine Psychiatric Exam Present: normal affect Assessment and Plan - Assessment (1) CHF (congestive heart failure) Code(s): I50.9 - Heart failure, unspecified Status: Acute (2) Cellulitis Code(s): L03.90 - Cellulitis, unspecified Status: Acute (3) COPD (chronic obstructive pulmonary disease) Code(s): J44.9 - Chronic obstructive pulmonary disease, unspecified Status: Chronic (4) T2DM (type 2 diabetes mellitus) Code(s): E11.9 - Type 2 diabetes mellitus without complications Status: Acute (5) HTN (hypertension) Code(s): I10 - Essential (primary) hypertension Status: Chronic (6) PAD (peripheral artery disease) Code(s): I73.9 - Peripheral vascular disease, unspecified Status: Chronic - Plan I&O negative 2350. Continue diuresis. Electrolytes and renal function stable. Will monitor BMP, BNP. Dr. Acosta to follow tomorrow. Code Status: full Discussed Condition With: Dr Enriquez (1) CHF (congestive heart failure) Qualifiers: Heart failure type: unspecified Heart failure chronicity: acute on chronic Qualified Code(s): I50.9 - Heart failure, unspecified (2) Cellulitis Qualifiers: Site of cellulitis: extremity Site of cellulitis of extremity: lower extremity Laterality: unspecified laterality Qualified Code(s): L03.119 - Cellulitis of unspecified part of limb (3) COPD (chronic obstructive pulmonary disease) Qualifiers: COPD type: unspecified COPD Qualified Code(s): J44.9 - Chronic obstructive pulmonary disease, unspecified (4) T2DM (type 2 diabetes mellitus) 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
[2017-09-09] MEDS: ceFAZolin 2 GM Premix Inj 2 GM/50 ML PIGGYBACK IV.SIG SCH ×3 (01:14→17:00)
[2017-09-09] MEDS: Albumin Human 25% Inj 100 ML IV.SIG SCH ×2 (06:20→18:24)
[2017-09-09] MEDS: Heparin - SQ 10,000 UNITS/ML Vial SQ SCH ×3 (06:20→21:01)
[2017-09-09 07:13] LABS: Baso % (Auto) 0.6 % (0.0-2.0); Eos # (Auto) 0.3 th/mm3 (0.0-0.4); Eos % (Auto) 4.6 % (0.0-4.0); Hemoglobin 10.2 gm/dL (11.6-15.3); Lymph # (Auto) 1.8 th/mm3 (1.0-4.8); Lymph % (Auto) 27.7 % (9.0-44.0); Mean Corpuscular Hemoglobin 23.9 pg (27.0-34.0); Mean Corpuscular Volume 77.5 fL (80.0-100.0); Mean Platelet Volume 8.7 fL (7.0-11.0); Mono # (Auto) 0.8 th/mm3 (0.0-0.9); Mono % (Auto) 11.5 % (0.0-8.0); Neut # (Auto) 3.7 th/mm3 (1.8-7.7); Neut % (Auto) 55.6 % (16.0-70.0); Platelet Count 262 th/mm3 (150-450); Red Blood Count 4.26 mil/mm3 (4.00-5.30); Red Cell Distribution Width 15.9 % (11.6-17.2); White Blood Count 6.6 th/mm3 (4.0-11.0)
[2017-09-09 07:21] LABS: Mean Corpuscular HGB Conc 30.8 % (32.0-36.0)
[2017-09-09 08:57] LABS: Carbon Dioxide 35.9 meq/L (21.0-32.0); Potassium 4.2 meq/L (3.5-5.1)
[2017-09-09] MEDS: Lisinopril 20 MG Tablet PO SCH ×2 (09:00→20:52)
[2017-09-09] MEDS: Linezolid 600 MG Tablet PO SCH ×2 (09:01→20:52)
[2017-09-09] MEDS: Spironolactone 25 MG Tablet PO SCH (09:01)
[2017-09-09] MEDS: glipiZIDE 5 MG Tablet PO SCH (09:01)
[2017-09-09] MEDS: Gabapentin 300 MG Capsule PO SCH ×3 (09:01→18:25)
[2017-09-09] MEDS: metOLazone 5 MG Tablet PO SCH (09:01)
[2017-09-09] MEDS: Pantoprazole Sodium 20 MG DR Tablet PO SCH (09:02)
[2017-09-09] MEDS: Lactobacillus Acidophilus/L. Spores Tablet PO SCH ×2 (09:02→20:51)
[2017-09-09] MEDS: Senna/Docusate Sodium 8.6/50 MG Tablet PO SCH (09:02)
[2017-09-09] MEDS: Insulin NovoLOG Aspart Correctional Sugar Inj SQ SCH ×4 (09:38→20:53)
--- NOTE | 2017-09-09 13:30 | P.PN ---
Subjective Interval history: Mrs. Clayton was afebrile with stable vital signs overnight. Net input 440ml today. Patient reports improvement in lower extremity swelling. Patient feels that she is breathing well and urinating more on diuresis. No other concerns; patient feels stable to go home. Physical Exam Vital signs: Vital Signs 09/08/17 14:38 09/08/17 16:00 09/08/17 16:21 Temperature 97.6 F Pulse Rate 94 H Respiratory Rate 20 20 Blood Pressure 151/77 H Pulse Oximetry 95 92 L 09/08/17 20:00 09/09/17 00:00 09/09/17 04:00 Temperature 97.9 F 98.3 F 97.6 F Pulse Rate 93 H 77 82 Respiratory Rate 20 20 22 Blood Pressure 127/58 L 120/56 L 108/53 L Pulse Oximetry 97 97 96 09/09/17 08:00 Temperature Pulse Rate Respiratory Rate 20 Blood Pressure Pulse Oximetry Intake & Output 09/08/17 09/09/17 09/09/17 18:59 06:59 18:59 Intake Total 540 / 540 500 / 500 Output Total 600 / 600 Balance -60 / -60 500 / 500 Weight 135.4 kg Intake: IV 300 / 300 50 / 50 Flexbumin 25% Inj 100 ML @ As 200 / 200 Directed IV.SIG Q12H GUICHO Rx#: [id number] Ancef 2 GM Premix Inj 2 gm In 100 / 100 50 / 50 50 ml @ 100 mls/hr IV.SIG Q8H GUICHO Rx#:[id number] Oral 240 / 240 450 / 450 Output: Urine 600 / 600 Stool 0 / 0 Other: # Urine Diapers 2 # Bowel Movements 1 Narrative: GENERAL: Morbidly obese; resting in no acute distress SKIN: Diffuse pitting edema/anasarca involving the legs, thighs, and abdomen. Seems improved relative to yesterday. Scaling of skin of distal LE's; scattered scabs CARDIOVASCULAR: Regular rate and rhythm. No murmur appreciated. RESPIRATORY: On 3 L O2 via NC. Normal rate. Bibasilar crackles. GASTROINTESTINAL: Abdomen soft, non-tender, nondistended. Normoactive bowel sounds MUSCULOSKELETAL: Bilateral lower extremity with evidence of chronic lymphedema, pitting edema NEUROLOGICAL: Awake and alert. No obvious cranial nerve deficits. Normal speech. PSYCHIATRIC: Appropriate mood and affect; insight and judgment normal Results - Labs CBC & Chem 7: 09/09/17 05:23 09/09/17 05:23 Laboratory Results - last 24 hr 09/08/17 09/08/17 09/09/17 17:57 20:16 05:23 WBC 6.6 RBC 4.26 Hgb 10.2 L Hct 33.0 L MCV 77.5 L MCH 23.9 L MCHC 30.8 L RDW 15.9 Plt Count 262 MPV 8.7 Neut % (Auto) 55.6 Lymph % (Auto) 27.7 [place] % (Auto) 11.5 H Eos % (Auto) 4.6 H Baso % (Auto) 0.6 Neut # (Auto) 3.7 Lymph # (Auto) 1.8 [place] # (Auto) 0.8 Eos # (Auto) 0.3 Baso # (Auto) 0.0 WBC Differential . Differential Comment Auto diff final Sodium Potassium Chloride Carbon Dioxide Anion Gap BUN Creatinine Estimated GFR POC Glucose 181 H 218 H Random Glucose Calcium 09/09/17 09/09/17 09/09/17 05:23 08:26 11:40 WBC RBC Hgb Hct MCV MCH MCHC RDW Plt Count MPV Neut % (Auto) Lymph % (Auto) [place] % (Auto) Eos % (Auto) Baso % (Auto) Neut # (Auto) Lymph # (Auto) [place] # (Auto) Eos # (Auto) Baso # (Auto) WBC Differential Differential Comment Sodium 141 Potassium 4.2 Chloride 98 Carbon Dioxide 35.9 H Anion Gap 7 BUN 28 H Creatinine 1.20 H Estimated GFR 46 L POC Glucose 147 H 190 H Random Glucose 137 H Calcium 9.0 Assessment and Plan - Assessment (1) CHF (congestive heart failure) Code(s): I50.9 - Heart failure, unspecified Status: Acute (2) Cellulitis Code(s): L03.90 - Cellulitis, unspecified Status: Acute (3) COPD (chronic obstructive pulmonary disease) Code(s): J44.9 - Chronic obstructive pulmonary disease, unspecified Status: Chronic (4) T2DM (type 2 diabetes mellitus) Code(s): E11.9 - Type 2 diabetes mellitus without complications Status: Acute (5) HTN (hypertension) Code(s): I10 - Essential (primary) hypertension Status: Chronic (6) PAD (peripheral artery disease) Code(s): I73.9 - Peripheral vascular disease, unspecified Status: Chronic - Plan 62 Y/O female with PMH CHF with an EF of 30-35% based on echo of 09/20/16, T2DM, COPD/Asthma on O2, PAD w stents, hx of DVT not on anticoagulation, HTN, hyperlipidemia, GERD, neuropathy presented to the emergency room with complaints of swelling in her lower extremities and abdomen. Bilateral lower extremity edema Impression: Bilateral LE edema in setting of CHF and LE cellulitis. Lower extremity Doppler ultrasound negative for DVT, mildly enlarged inguinal lymph nodes -Continue CHF treatment -Diuresis with Lasix IV, home metolazone -monitor fluid balance -Cellulitis treatment -Management per ID -Continue Ancef -Will plan to switch to oral Keflex on discharge x2 weeks -Wound care following -Leg elevation -Continue pain control with Ultram/Jet Acute systolic CHF exacerbation Impression: CXR showing cardiomegaly, pulmonary edema. EMR reviewed, echo with EF 30-35%. ACS ruled out with negative serial cardiac enzymes 3 -Cardiology following -Continue Lasix IV diuresis (80mg IV TID) -Continue Albumin 25% BID per Cardiology -Continue Metolazone 5mg daily -Continue JAROD, BB, Spironolactone -Monitor strict I's and O's -Fluid and salt restrictions COPD with chronic respiratory failure, O2 dependent: Chronic, with mild wheezing on exam likely exacerbated by fluid overload -Continue duo nebs 4 times daily -Incentive spirometer, Acapella -O2 as needed Diabetes mellitus: Chronic Impression: Chronic DM on Lantus Glucose 53 mg/dl this morning. -Continue patient's long-acting insulin (lantus converted to levemir); will hold Levemir -Continue home Glipizide -Monitor Accu-Cheks, cover with sliding scale insulin -Diabetic diet Accelerated hypertension: BP 190/89 upon arrival Impression: SBP ~160's recently -Continue patient's home medications including Coreg 3.125 mg bid -Continue lisinopril 20 mg twice daily -Monitor BP, adjust antihypertensives as neededd PAD with stents of lower extremities: Chronic -Continue patient's aspirin, Plavix, Lipitor Hyperlipidemia: Chronic -Continue patient's statin All other medical conditions stable, continue home medications as appropriate. DVT prophylaxis: Heparin sq Discharge Planning: Continue IV diuresis and treatment for cellulitis. Discharge planning based on progress. (1) CHF (congestive heart failure) Qualifiers: Heart failure type: unspecified Heart failure chronicity: acute on chronic Qualified Code(s): I50.9 - Heart failure, unspecified (2) Cellulitis Qualifiers: Site of cellulitis: extremity Site of cellulitis of extremity: lower extremity Laterality: unspecified laterality Qualified Code(s): L03.119 - Cellulitis of unspecified part of limb (3) COPD (chronic obstructive pulmonary disease) Qualifiers: COPD type: unspecified COPD Qualified Code(s): J44.9 - Chronic obstructive pulmonary disease, unspecified (4) T2DM (type 2 diabetes mellitus) Qualifiers: Diabetes mellitus penitentiary insulin use: with moth exterminator use
--- NOTE | 2017-09-09 19:26 | P.PNID ---
Infectious Disease Brief Note Vital Signs - 24 hr dw : ok to DC home from ID standpoint on oral Keflex for 10 days. Will sign off please call back if any change in clinical condition or questions. 09/08/17 20:00 09/09/17 00:00 09/09/17 04:00 Temperature 97.9 F 98.3 F 97.6 F Pulse Rate 93 H 77 82 Respiratory Rate 20 20 22 Blood Pressure 127/58 L 120/56 L 108/53 L Pulse Oximetry 97 97 96 09/09/17 08:00 09/09/17 12:00 Temperature 98.8 F 97.8 F Pulse Rate 84 99 H Respiratory Rate 18 18 Blood Pressure 141/65 H 138/65 Pulse Oximetry 96 93 L Laboratory Results - last 24 hr 09/08/17 09/09/17 09/09/17 20:16 05:23 05:23 WBC 6.6 RBC 4.26 Hgb 10.2 L Hct 33.0 L MCV 77.5 L MCH 23.9 L MCHC 30.8 L RDW 15.9 Plt Count 262 MPV 8.7 Neut % (Auto) 55.6 Lymph % (Auto) 27.7 [place] % (Auto) 11.5 H Eos % (Auto) 4.6 H Baso % (Auto) 0.6 Neut # (Auto) 3.7 Lymph # (Auto) 1.8 [place] # (Auto) 0.8 Eos # (Auto) 0.3 Baso # (Auto) 0.0 WBC Differential . Differential Comment Auto diff final Sodium 141 Potassium 4.2 Chloride 98 Carbon Dioxide 35.9 H Anion Gap 7 BUN 28 H Creatinine 1.20 H Estimated GFR 46 L POC Glucose 218 H Random Glucose 137 H Calcium 9.0 09/09/17 09/09/17 09/09/17 08:26 11:40 16:55 WBC RBC Hgb Hct MCV MCH MCHC RDW Plt Count MPV Neut % (Auto) Lymph % (Auto) [place] % (Auto) Eos % (Auto) Baso % (Auto) Neut # (Auto) Lymph # (Auto) [place] # (Auto) Eos # (Auto) Baso # (Auto) WBC Differential Differential Comment Sodium Potassium Chloride Carbon Dioxide Anion Gap BUN Creatinine Estimated GFR POC Glucose 147 H 190 H 294 H Random Glucose Calcium
[2017-09-10] MEDS: ceFAZolin 2 GM Premix Inj 2 GM/50 ML PIGGYBACK IV.SIG SCH ×3 (01:52→18:43)
[2017-09-10] MEDS: Albumin Human 25% Inj 100 ML IV.SIG SCH (05:05)
[2017-09-10] MEDS: Heparin - SQ 10,000 UNITS/ML Vial SQ SCH ×3 (05:06→22:15)
[2017-09-10] MEDS: Insulin NovoLOG Aspart Correctional Sugar Inj SQ SCH ×4 (08:43→22:16)
[2017-09-10] MEDS: metOLazone 5 MG Tablet PO SCH (08:55)
[2017-09-10] MEDS: Lactobacillus Acidophilus/L. Spores Tablet PO SCH ×2 (08:55→22:15)
[2017-09-10] MEDS: Senna/Docusate Sodium 8.6/50 MG Tablet PO SCH (08:55)
[2017-09-10] MEDS: Linezolid 600 MG Tablet PO SCH ×2 (08:56→22:15)
[2017-09-10] MEDS: Pantoprazole Sodium 20 MG DR Tablet PO SCH (08:56)
[2017-09-10] MEDS: Lisinopril 20 MG Tablet PO SCH ×2 (08:56→22:15)
[2017-09-10] MEDS: glipiZIDE 5 MG Tablet PO SCH (08:56)
[2017-09-10] MEDS: Spironolactone 25 MG Tablet PO SCH (08:57)
[2017-09-10] MEDS: Gabapentin 300 MG Capsule PO SCH ×3 (09:06→18:45)
[2017-09-10 10:01] LABS: Baso % (Auto) 0.7 % (0.0-2.0); Eos # (Auto) 0.3 th/mm3 (0.0-0.4); Eos % (Auto) 5.3 % (0.0-4.0); Hematocrit 31.7 % (35.0-46.0); Hemoglobin 9.7 gm/dL (11.6-15.3); Lymph # (Auto) 1.4 th/mm3 (1.0-4.8); Lymph % (Auto) 24.3 % (9.0-44.0); Mean Corpuscular Hemoglobin 23.8 pg (27.0-34.0); Mean Corpuscular Volume 78.2 fL (80.0-100.0); Mean Platelet Volume 8.8 fL (7.0-11.0); Mono # (Auto) 0.6 th/mm3 (0.0-0.9); Mono % (Auto) 10.7 % (0.0-8.0); Neut # (Auto) 3.4 th/mm3 (1.8-7.7); Platelet Count 231 th/mm3 (150-450); Red Blood Count 4.06 mil/mm3 (4.00-5.30); Red Cell Distribution Width 15.8 % (11.6-17.2); White Blood Count 5.8 th/mm3 (4.0-11.0)
[2017-09-10 10:04] LABS: Calcium 9.3 mg/dL (8.5-10.1); Carbon Dioxide 35.1 meq/L (21.0-32.0); Potassium 3.8 meq/L (3.5-5.1)
[2017-09-10 10:12] LABS: Mean Corpuscular HGB Conc 30.5 % (32.0-36.0)
--- NOTE | 2017-09-10 12:21 | P.PN ---
Subjective Interval history: Mrs. Clayton was afebrile with intermittent HTN (max SBP 150's overnight). Net input 510ml overnight. Patient reports desire to go home today. She reports normal urination. Patient does not report shortness of breath, chest pain, or other concerns. Patient with persistent constipation but this is normal for her. Physical Exam Vital signs: Vital Signs 09/09/17 20:00 09/09/17 23:56 09/10/17 00:00 Temperature 97.4 F L 97.4 F L Pulse Rate 54 L 85 Respiratory Rate 18 18 19 Blood Pressure 125/60 118/57 L Pulse Oximetry 97 09/10/17 04:00 09/10/17 08:00 Temperature 97.7 F 97.4 F L Pulse Rate 82 83 Respiratory Rate 18 Blood Pressure 147/98 H 151/70 H Pulse Oximetry 95 95 Intake & Output 09/09/17 09/10/17 09/10/17 18:59 06:59 18:59 Intake Total 920 / 920 490 / 490 Output Total 900 / 900 Balance 920 / 920 -410 / -410 Weight 134.8 kg Intake: IV 200 / 200 250 / 250 Flexbumin 25% Inj 100 ML @ As 100 / 100 200 / 200 Directed IV.SIG Q12H GUICHO Rx#: [id number] Ancef 2 GM Premix Inj 2 gm In 100 / 100 50 / 50 50 ml @ 100 mls/hr IV.SIG Q8H GUICHO Rx#:[id number] Oral 720 / 720 240 / 240 Output: Urine 900 / 900 Other: # Voids 2 # Bowel Movements 0 Narrative: GENERAL: Morbidly obese; resting in no acute distress SKIN: Diffuse pitting edema/anasarca involving the legs, thighs, and abdomen. Seems improved relative to yesterday. Scaling of skin of distal LE's; scattered scabs CARDIOVASCULAR: Regular rate and rhythm. No murmur appreciated. RESPIRATORY: On 3 L O2 via NC. Normal rate. CTAB GASTROINTESTINAL: Abdomen soft, non-tender, nondistended. Normoactive bowel sounds MUSCULOSKELETAL: Bilateral lower extremity with evidence of chronic lymphedema, pitting edema NEUROLOGICAL: Awake and alert. No obvious cranial nerve deficits. Normal speech. PSYCHIATRIC: Appropriate mood and affect Results - Labs CBC & Chem 7: 09/10/17 06:54 09/10/17 17:17 Laboratory Results - last 24 hr 09/09/17 09/09/17 09/10/17 16:55 19:59 06:54 WBC 5.8 RBC 4.06 Hgb 9.7 L Hct 31.7 L MCV 78.2 L MCH 23.8 L MCHC 30.5 L RDW 15.8 Plt Count 231 MPV 8.8 Neut % (Auto) 59.0 Lymph % (Auto) 24.3 [place] % (Auto) 10.7 H Eos % (Auto) 5.3 H Baso % (Auto) 0.7 Neut # (Auto) 3.4 Lymph # (Auto) 1.4 [place] # (Auto) 0.6 Eos # (Auto) 0.3 Baso # (Auto) 0.0 WBC Differential . Differential Comment Auto diff final Sodium Potassium Chloride Carbon Dioxide Anion Gap BUN Creatinine Estimated GFR POC Glucose 294 H 259 H Random Glucose Calcium 09/10/17 09/10/17 06:54 07:27 WBC RBC Hgb Hct MCV MCH MCHC RDW Plt Count MPV Neut % (Auto) Lymph % (Auto) [place] % (Auto) Eos % (Auto) Baso % (Auto) Neut # (Auto) Lymph # (Auto) [place] # (Auto) Eos # (Auto) Baso # (Auto) WBC Differential Differential Comment Sodium 140 Potassium 3.8 Chloride 95 L Carbon Dioxide 35.1 H Anion Gap 10 BUN 33 H Creatinine 1.71 H Estimated GFR 30 L POC Glucose 129 H Random Glucose 122 H Calcium 9.3 Assessment and Plan - Assessment (1) CHF (congestive heart failure) Code(s): I50.9 - Heart failure, unspecified Status: Acute (2) Cellulitis Code(s): L03.90 - Cellulitis, unspecified Status: Acute (3) COPD (chronic obstructive pulmonary disease) Code(s): J44.9 - Chronic obstructive pulmonary disease, unspecified Status: Chronic (4) T2DM (type 2 diabetes mellitus) Code(s): E11.9 - Type 2 diabetes mellitus without complications Status: Acute (5) HTN (hypertension) Code(s): I10 - Essential (primary) hypertension Status: Chronic (6) PAD (peripheral artery disease) Code(s): I73.9 - Peripheral vascular disease, unspecified Status: Chronic - Plan 62 Y/O female with PMH CHF with an EF of 30-35% based on echo of 09/20/16, T2DM, COPD/Asthma on O2, PAD w stents, hx of DVT not on anticoagulation, HTN, hyperlipidemia, GERD, neuropathy presented to the emergency room with complaints of swelling in her lower extremities and abdomen. Bilateral lower extremity edema Impression: Bilateral LE edema in setting of CHF and LE cellulitis. Lower extremity Doppler ultrasound negative for DVT, mildly enlarged inguinal lymph nodes -Continue CHF treatment -Continue diuresis -monitor fluid balance -Cellulitis treatment -Management per ID -Continue Ancef -Will plan to switch to oral Keflex on discharge x2 weeks -Wound care following -Leg elevation -Continue pain control with Ultram/Moos[place] Acute systolic CHF exacerbation Impression: CXR showing cardiomegaly, pulmonary edema. EMR reviewed, echo with EF 30-35%. ACS ruled out with negative serial cardiac enzymes 3 -Cardiology following; discussed case today -Will hold Lasix IV diuresis (80mg IV TID) due to MICHELLE -Will plan for Lasix 40mg PO BID at discharge -Continue home Metolazone 5mg daily -Continue JAROD, BB, Spironolactone -Monitor strict I's and O's -Fluid and salt restrictions MICHELLE Impression: Cr at baseline ~1 09/03; subsequent mild increase (-> 1.83 today) on Lasix diuresis. Associated decrease in urine output suggesting prerenal cause from diuresis -Will hold lasix -Will follow BMP -Avoid nephrotoxins COPD with chronic respiratory failure, O2 dependent: Chronic, with mild wheezing on exam likely exacerbated by fluid overload -Continue duo nebs 4 times daily -Incentive spirometer, Acapella -O2 as needed Diabetes mellitus: Chronic Impression: Chronic DM on Lantus Glucose 53 mg/dl this morning. -Continue patient's long-acting insulin (lantus converted to levemir); will hold Levemir -Continue home Glipizide -Monitor Accu-Cheks, cover with sliding scale insulin -Diabetic diet Accelerated hypertension: BP 190/89 upon arrival Impression: SBP ~160's recently -Continue patient's home medications including Coreg 3.125 mg bid -Continue lisinopril 20 mg twice daily -continue Spironolactone 25mg daily -Monitor BP; will consider increase in Coreg vs Spironolactone prior to discharge PAD with stents of lower extremities: Chronic -Continue patient's aspirin, Plavix, Lipitor Hyperlipidemia: Chronic -Continue patient's statin All other medical conditions stable, continue home medications as appropriate. DVT prophylaxis: Heparin sq Discharge Planning: Continue diuresis and treatment for cellulitis. Anticipate discharge tomorrow assuming improvement in renal function (1) CHF (congestive heart failure) Qualifiers: Heart failure type: unspecified Heart failure chronicity: acute on chronic Qualified Code(s): I50.9 - Heart failure, unspecified (2) Cellulitis Qualifiers: Site of cellulitis: extremity Site of cellulitis of extremity: lower extremity Laterality: unspecified laterality Qualified Code(s): L03.119 - Cellulitis of unspecified part of limb (3) COPD (chronic obstructive pulmonary disease) Qualifiers: COPD type: unspecified COPD Qualified Code(s): J44.9 - Chronic obstructive pulmonary disease, unspecified (4) T2DM (type 2 diabetes mellitus) Qualifiers: Diabetes mellitus manager intermediate insulin use: with manager intermediate use
--- NOTE | 2017-09-10 17:07 | P.PNPOD ---
Subjective Interval history: Patient seen bedside resting comfortably. States she like to go home as soon as possible. States she has roommates at home will help her with dressing changes and help her take care of her legs. Physical Exam Vital signs: Vital Signs 09/09/17 20:00 09/09/17 23:56 09/10/17 00:00 Temperature 97.4 F L 97.4 F L Pulse Rate 54 L 85 Respiratory Rate 18 18 19 Blood Pressure 125/60 118/57 L Pulse Oximetry 97 09/10/17 04:00 09/10/17 08:00 09/10/17 12:00 Temperature 97.7 F 97.5 F L 97.4 F L Pulse Rate 82 60 86 Respiratory Rate 18 18 Blood Pressure 147/98 H 137/78 151/73 H Pulse Oximetry 95 98 93 L Intake & Output 09/09/17 09/10/17 09/10/17 18:59 06:59 18:59 Intake Total 920 / 920 490 / 490 Output Total 900 / 900 Balance 920 / 920 -410 / -410 Weight 134.8 kg Intake: IV 200 / 200 250 / 250 Flexbumin 25% Inj 100 ML @ As 100 / 100 200 / 200 Directed IV.SIG Q12H GUICHO Rx#: [id number] Ancef 2 GM Premix Inj 2 gm In 100 / 100 50 / 50 50 ml @ 100 mls/hr IV.SIG Q8H GUICHO Rx#:[id number] Oral 720 / 720 240 / 240 Output: Urine 900 / 900 Other: # Voids 2 # Bowel Movements 0 Narrative: Bilateral lower extremity dry and showers noted with erythema and resolving edema. Brawny induration noted to bilateral lower extremity. Peau d'orange dermatitis noted to bilateral lower extremity. Medications and Allergies Active Medications: Active Medications Acetaminophen (Tylenol) 500 mg PO Q4H PRN PRN Reason: PAIN 1-2 AND/OR FEVER >101F Hydrocodone Bitart/Acetaminophen ([place] 7.5/325) 1 tab PO Q4H PRN PRN Reason: SEE LABEL COMMENTS Last Admin: 09/10/17 14:23 Dose: 1 tab Albuterol (Duoneb Neb (Prn)) 1 ampul NEB Q4HR NEB PRN PRN Reason: SHORTNESS OF BREATH/WHEEZING Aspirin (Ecotrin) 81 mg PO DAILY [facility] Last Admin: 09/10/17 08:55 Dose: 81 mg Atorvastatin Calcium (Lipitor) 40 mg PO DAILY [facility] Last Admin: 09/10/17 08:56 Dose: 40 mg Carvedilol (Coreg) 3.125 mg PO BID [facility] Last Admin: 09/10/17 08:57 Dose: 3.125 mg Clonidine HCl (Catapres) 0.1 mg PO Q6H PRN PRN Reason: SBP>160, DBP>90 Clopidogrel Bisulfate (Plavix) 75 mg PO DAILY [facility] Last Admin: 09/10/17 08:56 Dose: 75 mg Dextrose (D50w Vial) 50 ml IV.PUSH UNSCH PRN PRN Reason: PER HYPOGLYCEMIA PROTOCOL Enalaprilat (Vasotec Inj) 1.25 mg IV.PUSH Q6H PRN PRN Reason: SBP>160, DBP>90 Gabapentin (Neurontin) 300 mg PO TID [facility] Last Admin: 09/10/17 14:24 Dose: 300 mg [facility] Last Admin: 09/10/17 08:56 Dose: 5 mg Glucagon (Glucagon Inj) 1 mg OTHER PRN PRN PRN Reason: for Hypoglycemia Protocol Heparin Sodium (Porcine) (Heparin Inj) 5,000 units SQ Q8HR [facility] Last Admin: 09/10/17 14:23 Dose: 5,000 units Cefazolin Sodium/Dextrose (Ancef 2 Gm Premix Inj) 2 gm in 50 mls @ 100 mls/hr IV.SIG Q8H [facility] Last Admin: 09/10/17 09:06 Dose: 100 mls/hr Insulin Aspart (Novolog Insulin Suppl Scale Inj) 0 unit SQ [facility]; Protocol Last Admin: 09/10/17 14:24 Dose: 3 unit Insulin Detemir (Levemir Inj) 30 unit SQ Q12HR [facility] Last Admin: 09/08/17 09:43 Dose: Not Given Lactobacillus Acidophilus (Lactinex) 1 tab PO Q12HR [facility] Last Admin: 09/10/17 08:55 Dose: 1 tab Linezolid (Zyvox) 600 mg PO Q12HR [facility] Last Admin: 09/10/17 08:56 Dose: 600 mg Lisinopril (Prinivil) 20 mg PO BID [facility] Last Admin: 09/10/17 08:56 Dose: 20 mg Metolazone (Zaroxolyn) 5 mg PO DAILY [facility] Last Admin: 09/10/17 08:55 Dose: 5 mg Pantoprazole Sodium (Protonix) 20 mg PO DAILY [facility] Last Admin: 09/10/17 08:56 Dose: 20 mg Pt Own Med: Combivent Respimat 20-100mcg/Act Inhaler 0 each INH QID [facility] Senna/Docusate Sodium (Joaquina-Colace) 2 tab PO DAILY [facility] Last Admin: 09/10/17 08:55 Dose: 2 tab Sodium Chloride (Ns Flush) 2 ml IV.FLUSH BID [facility] Last Admin: 09/10/17 08:57 Dose: 2 ml Sodium Chloride (Ns Flush) 2 ml IV.FLUSH UNSCH PRN PRN Reason: FLUSH AFTER USING IV ACCESS Spironolactone (Aldactone) 25 mg PO DAILY [facility] Last Admin: 09/10/17 08:57 Dose: 25 mg Tramadol/Acetaminophen (Ultracet 37.5/325 Mg) 1 tab PO Q4H PRN PRN Reason: SEE LABEL COMMENTS Allergies Allergy/AdvReac Type Severity Reaction Status Date / Time codeine Allergy Intermediate rash Verified 09/07/17 09:31 penicillin G Allergy Intermediate RASH,FEVER, Verified 09/07/17 09:31 SEIZURE *MDRO Multi-Drug Resistant AdvReac Unknown Cleared Uncoded 09/03/17 02:52 Organism 04/25/16 Home Medications Medication Instructions Recorded Confirmed Type albuterol sulfate [ProAir HFA] 2 puff INHALATION Q4-6H PRN 09/07/17 09/07/17 History aspirin 81 mg PO DAILY 09/07/17 09/07/17 History atorvastatin 80 mg PO HS 09/07/17 09/07/17 History bumetanide 2 mg PO BID 09/07/17 09/07/17 History carvedilol [Coreg] 3.125 mg PO BID 09/07/17 09/07/17 History clopidogrel 75 mg PO DAILY 09/07/17 09/07/17 History gabapentin 300 mg PO TID 09/07/17 09/07/17 History glipizide 5 mg PO DAILY 09/07/17 09/07/17 History insulin aspart U-100 [Novolog 10 unit SUB-Q TIDAC 09/07/17 09/07/17 History U-100 Insulin aspart] insulin glargine [Lantus U-100 55 unit SUB-Q BID 09/07/17 09/07/17 History Insulin] ipratropium-albuterol [Combivent 1 puff INHALATION QID 09/07/17 09/07/17 History Respimat] lisinopril 20 mg PO DAILY 09/07/17 09/07/17 History omeprazole 20 mg PO DAILY 09/07/17 09/07/17 History prednisone 10 mg PO PER PKG DIR 09/07/17 09/07/17 History tramadol 50 mg PO Q4HR PRN 09/07/17 09/07/17 History Results - Labs CBC & Chem 7: 09/10/17 06:54 09/10/17 06:54 Laboratory Results - last 24 hr 09/09/17 09/10/17 09/10/17 19:59 06:54 06:54 WBC 5.8 RBC 4.06 Hgb 9.7 L Hct 31.7 L MCV 78.2 L MCH 23.8 L MCHC 30.5 L RDW 15.8 Plt Count 231 MPV 8.8 Neut % (Auto) 59.0 Lymph % (Auto) 24.3 [place] % (Auto) 10.7 H Eos % (Auto) 5.3 H Baso % (Auto) 0.7 Neut # (Auto) 3.4 Lymph # (Auto) 1.4 [place] # (Auto) 0.6 Eos # (Auto) 0.3 Baso # (Auto) 0.0 WBC Differential . Differential Comment Auto diff final Sodium 140 Potassium 3.8 Chloride 95 L Carbon Dioxide 35.1 H Anion Gap 10 BUN 33 H Creatinine 1.71 H Estimated GFR 30 L POC Glucose 259 H Random Glucose 122 H Calcium 9.3 09/10/17 09/10/17 07:27 12:38 WBC RBC Hgb Hct MCV MCH MCHC RDW Plt Count MPV Neut % (Auto) Lymph % (Auto) [place] % (Auto) Eos % (Auto) Baso % (Auto) Neut # (Auto) Lymph # (Auto) [place] # (Auto) Eos # (Auto) Baso # (Auto) WBC Differential Differential Comment Sodium Potassium Chloride Carbon Dioxide Anion Gap BUN Creatinine Estimated GFR POC Glucose 129 H 220 H Random Glucose Calcium Assessment and Plan - Plan 62-year-old female with bilateral venous stasis wounds and associated cellulitis , resolving and improving Patient examined evaluated with all questions answered Patient to follow-up with wound care center at [place] once discharged She will need management of bilateral lower extremity venous stasis ulcers and lymphedema Patient okay to DC per podiatry on appropriate oral antibiotics Compression stockings encouraged and recommended
[2017-09-10 18:30] LABS: Carbon Dioxide 36.8 meq/L (21.0-32.0); Potassium 4.2 meq/L (3.5-5.1)
[2017-09-11] MEDS: ceFAZolin 2 GM Premix Inj 2 GM/50 ML PIGGYBACK IV.SIG SCH ×2 (01:12→11:01)
[2017-09-11 05:30] LABS: Calcium 9.2 mg/dL (8.5-10.1); Carbon Dioxide 35.9 meq/L (21.0-32.0); Potassium 4.2 meq/L (3.5-5.1)
[2017-09-11] MEDS: Heparin - SQ 10,000 UNITS/ML Vial SQ SCH (06:40)
[2017-09-11] MEDS: Insulin NovoLOG Aspart Correctional Sugar Inj SQ SCH ×2 (07:51→12:22)
--- NOTE | 2017-09-11 07:54 | P.PN ---
Subjective Interval history: Mrs. Clayton was afebrile with stable vital signs overnight. Net 350 ml output overnight. No chest pain, shortness of breath, or urinary problems. She has still not had a recent BM but is not interested in stool softeners. Patient expresses desire to go home despite worsening kidney function stating she is frustrated with not being able to sleep. Physical Exam Vital signs: Vital Signs 09/10/17 08:00 09/10/17 12:00 09/10/17 16:00 Temperature 97.5 F L 97.4 F L 97.8 F Pulse Rate 60 86 81 Respiratory Rate 18 18 18 Blood Pressure 137/78 151/73 H 152/76 H Pulse Oximetry 98 93 L 97 09/10/17 20:00 09/11/17 00:00 09/11/17 04:00 Temperature 97.8 F 97.9 F 98.3 F Pulse Rate 89 76 69 Respiratory Rate 16 16 16 Blood Pressure 132/62 131/61 131/61 Pulse Oximetry 96 96 95 Intake & Output 09/10/17 09/11/17 09/11/17 18:59 06:59 18:59 Intake Total 50 / 50 200 / 200 Output Total 600 / 600 Balance 50 / 50 -400 / -400 Weight 136.5 kg Intake: IV 50 / 50 50 / 50 Ancef 2 GM Premix Inj 2 gm In 50 / 50 50 / 50 50 ml @ 100 mls/hr IV.SIG Q8H GUICHO Rx#:[id number] Oral 150 / 150 Output: Urine 600 / 600 Other: # Voids 3 Narrative: GENERAL: Morbidly obese; resting in chair SKIN: Significant improvement in pitting edema/anasarca involving the legs, thighs, and abdomen. Scaling of skin of distal LE's; scattered scabs CARDIOVASCULAR: Regular rate and rhythm. No murmur appreciated. RESPIRATORY: On 3 L O2 via NC. Normal rate. CTAB GASTROINTESTINAL: Abdomen soft, non-tender, nondistended. Normoactive bowel sounds MUSCULOSKELETAL: Bilateral lower extremities with evidence of chronic lymphedema , pitting edema NEUROLOGICAL: Awake and alert. No obvious cranial nerve deficits. Normal speech. PSYCHIATRIC: Appropriate mood and affect Results - Labs CBC & Chem 7: 09/10/17 06:54 09/11/17 03:42 Laboratory Results - last 24 hr 09/10/17 09/10/17 09/10/17 06:54 06:54 12:38 WBC 5.8 RBC 4.06 Hgb 9.7 L Hct 31.7 L MCV 78.2 L MCH 23.8 L MCHC 30.5 L RDW 15.8 Plt Count 231 MPV 8.8 Neut % (Auto) 59.0 Lymph % (Auto) 24.3 [place] % (Auto) 10.7 H Eos % (Auto) 5.3 H Baso % (Auto) 0.7 Neut # (Auto) 3.4 Lymph # (Auto) 1.4 [place] # (Auto) 0.6 Eos # (Auto) 0.3 Baso # (Auto) 0.0 WBC Differential . Differential Comment Auto diff final Sodium 140 Potassium 3.8 Chloride 95 L Carbon Dioxide 35.1 H Anion Gap 10 BUN 33 H Creatinine 1.71 H Estimated GFR 30 L POC Glucose 220 H Random Glucose 122 H Calcium 9.3 09/10/17 09/10/17 09/10/17 17:17 17:24 19:39 WBC RBC Hgb Hct MCV MCH MCHC RDW Plt Count MPV Neut % (Auto) Lymph % (Auto) [place] % (Auto) Eos % (Auto) Baso % (Auto) Neut # (Auto) Lymph # (Auto) [place] # (Auto) Eos # (Auto) Baso # (Auto) WBC Differential Differential Comment Sodium 143 Potassium 4.2 Chloride 98 Carbon Dioxide 36.8 H Anion Gap 8 BUN 37 H Creatinine 1.83 H Estimated GFR 28 L POC Glucose 259 H 300 H Random Glucose 232 H D Calcium 9.0 09/11/17 09/11/17 03:42 07:16 WBC RBC Hgb Hct MCV MCH MCHC RDW Plt Count MPV Neut % (Auto) Lymph % (Auto) [place] % (Auto) Eos % (Auto) Baso % (Auto) Neut # (Auto) Lymph # (Auto) [place] # (Auto) Eos # (Auto) Baso # (Auto) WBC Differential Differential Comment Sodium 141 Potassium 4.2 Chloride 96 L Carbon Dioxide 35.9 H Anion Gap 9 BUN 41 H Creatinine 1.99 H Estimated GFR 26 L POC Glucose 117 H Random Glucose 120 H D Calcium 9.2 Assessment and Plan - Assessment (1) CHF (congestive heart failure) Code(s): I50.9 - Heart failure, unspecified Status: Acute (2) Cellulitis Code(s): L03.90 - Cellulitis, unspecified Status: Acute (3) COPD (chronic obstructive pulmonary disease) Code(s): J44.9 - Chronic obstructive pulmonary disease, unspecified Status: Chronic (4) T2DM (type 2 diabetes mellitus) Code(s): E11.9 - Type 2 diabetes mellitus without complications Status: Acute (5) HTN (hypertension) Code(s): I10 - Essential (primary) hypertension Status: Chronic (6) PAD (peripheral artery disease) Code(s): I73.9 - Peripheral vascular disease, unspecified Status: Chronic - Plan 62 Y/O female with PMH CHF with an EF of 30-35% based on echo of 09/20/16, T2DM, COPD/Asthma on O2, PAD w stents, hx of DVT not on anticoagulation, HTN, hyperlipidemia, GERD, neuropathy presented to the emergency room with complaints of swelling in her lower extremities and abdomen. Bilateral lower extremity edema Impression: Bilateral LE edema in setting of CHF and LE cellulitis. Lower extremity Doppler ultrasound negative for DVT, mildly enlarged inguinal lymph nodes -Continue CHF treatment -Continue diuresis -monitor fluid balance -Cellulitis treatment -Management per ID -Continue Ancef -Will plan to switch to oral Keflex on discharge x2 weeks -Podiatry consulted -Follow-up with [facility] at discharge for management of LE stasis ulcers and lymphedema -Compression stockings encouraged -OK to DC on oral antibiotics -Wound care following -Leg elevation -Continue pain control with Ultram/[place] Acute systolic CHF exacerbation Impression: CXR showing cardiomegaly, pulmonary edema. EMR reviewed, echo with EF 30-35%. ACS ruled out with negative serial cardiac enzymes 3 -Cardiology following; discussed case today -Will hold Lasix IV diuresis (80mg IV TID) due to MICHELLE -Will plan for Lasix 40mg PO BID at discharge -Continue home Metolazone 5mg daily -Continue JAROD, BB, Spironolactone -Monitor strict I's and O's -Fluid and salt restrictions MICHELLE Impression: Cr at baseline ~1 09/03-> 1.99 today. Patient was on Lasix 80mg IV TID; some associated decrease in urine output suggesting prerenal cause from diuresis -Lasix held; patient had negativ I/O (-350ml today) -Will follow BMP, will repeat UA -Avoid nephrotoxins -Nephrology consulted COPD with chronic respiratory failure, O2 dependent: Chronic, with mild wheezing on exam likely exacerbated by fluid overload -Continue duo nebs 4 times daily -Incentive spirometer, [place] -O2 as needed Diabetes mellitus: Chronic Impression: Chronic DM on Lantus Glucose 53 mg/dl this morning. -Continue patient's long-acting insulin (lantus converted to levemir); Levemir held -Continue home Glipizide -Monitor Accu-Cheks, cover with sliding scale insulin -Diabetic diet Accelerated hypertension: BP 190/89 upon arrival Impression: Normotensive recently -Continue patient's home medications including Coreg 3.125 mg bid -Continue lisinopril 20 mg twice daily -continue Spironolactone 25mg daily -Monitor BP; will consider increase in Coreg vs Spironolactone prior to discharge PAD with stents of lower extremities: Chronic -Continue patient's aspirin, Plavix, Lipitor Hyperlipidemia: Chronic -Continue patient's statin All other medical conditions stable, continue home medications as appropriate. DVT prophylaxis: Heparin sq Discussed Condition With: Discussed with Cardiology 09/10 Discharge Planning: Continue diuresis and treatment for cellulitis. Discharge plans pending renal function (1) CHF (congestive heart failure) Qualifiers: Heart failure type: unspecified Heart failure chronicity: acute on chronic Qualified Code(s): I50.9 - Heart failure, unspecified (2) Cellulitis Qualifiers: Site of cellulitis: extremity Site of cellulitis of extremity: lower extremity Laterality: unspecified laterality Qualified Code(s): L03.119 - Cellulitis of unspecified part of limb (3) COPD (chronic obstructive pulmonary disease) Qualifiers: COPD type: unspecified COPD Qualified Code(s): J44.9 - Chronic obstructive pulmonary disease, unspecified (4) T2DM (type 2 diabetes mellitus) Qualifiers: Diabetes mellitus fpc insulin use: with fpc use (5) HTN (hypertension) Qualifiers: Hypertension type: essential hypertension Qualified Code(s): I10 - Essential (primary) hypertension
[2017-09-11] MEDS: Senna/Docusate Sodium 8.6/50 MG Tablet PO SCH (09:41)
[2017-09-11] MEDS: Lactobacillus Acidophilus/L. Spores Tablet PO SCH (09:42)
[2017-09-11] MEDS: Gabapentin 300 MG Capsule PO SCH (09:42)
[2017-09-11] MEDS: Pantoprazole Sodium 20 MG DR Tablet PO SCH (09:42)
[2017-09-11] MEDS: metOLazone 5 MG Tablet PO SCH (09:42)
[2017-09-11] MEDS: Lisinopril 20 MG Tablet PO SCH (09:42)
[2017-09-11] MEDS: Spironolactone 25 MG Tablet PO SCH (09:43)
[2017-09-11] MEDS: Linezolid 600 MG Tablet PO SCH (09:43)
[2017-09-11] MEDS: glipiZIDE 5 MG Tablet PO SCH (09:43)
[2017-09-11 13:14] VITALS: BP 116/56; TEMP 97.3
[2017-09-11 13:25] VITALS: PULSE 80; RESP 16; O2SAT 95
[2017-09-11 13:46] LABS: Calcium 8.9 mg/dL (8.5-10.1); Carbon Dioxide 36.4 meq/L (21.0-32.0); Potassium 4.3 meq/L (3.5-5.1)
--- NOTE | 2017-09-11 15:10 | MB ---
cc: Vilma Jacobo MD DATE: 09/11/2017 REASON FOR CONSULTATION: Acute kidney injury with elevated BUN and creatinine, for evaluation. HISTORY OF PRESENT ILLNESS: This is a 62-year-old female with a past medical history of chronic obstructive pulmonary disease, diabetes mellitus, ischemic heart disease, congestive heart failure with ejection fraction of 30-35%, who came to the emergency department because of increased swelling of the legs and abdominal swelling with shortness of breath. The patient has chronic shortness of breath and COPD and she is on home oxygen. She did notice that she has gradual worsening of her shortness of breath and also increased swelling of her abdominal wall and legs. She was taking Bumex at home and here in the hospital, she was given diuretics. I was called to see the patient because of elevated BUN and creatinine. The patient was found to have a creatinine of 0.9 on admission, which has been gradually increasing and now it is 1.8. The patient denies any dysuria or hematuria. She has been getting diuretic and also she is getting linezolid along with Aldactone and metolazone. According to the patient, her swelling is slightly better and her breathing is also improving. She is still on 4 liter nasal cannula. Her appetite is normal. She denies any dysuria, hematuria or difficulty in passing urine. PAST MEDICAL HISTORY: Hypertension, ischemic heart disease, congestive heart failure, chronic obstructive pulmonary disease, diabetes mellitus, hyperlipidemia. REVIEW OF SYSTEMS: The patient has shortness of breath more with exertion. She has cough which is mainly dry. There is no chest pain. No palpitations. No headache or dizziness. No history of fever. No nausea or vomiting. No abdominal pain. She has increased abdominal distention and increased swelling of her legs. SOCIAL HISTORY: The patient has past history of smoking, stopped 3 years ago. There is no history of heavy alcoholism. FAMILY HISTORY: Positive for heart disease on the mother's side. ALLERGIES: SHE IS ALLERGIC TO PENICILLIN AND CODEINE. MEDICATIONS: Currently, she is on following medications: 1. Tylenol as needed. 2. [place] as needed. 3. DuoNeb as needed. 4. Ecotrin 81 mg once a day. 5. Lipitor 40 mg daily. 6. Coreg 3.125 mg b.i.d. 7. Ancef 2 grams IV q. 24 hours. 8. Clonidine 0.1 mg q.6 hours. 9. Plavix 75 mg daily. 10. Enalapril IV p.r.n. 11. Heparin 5000 subcutaneous every 8 hours. 12. Levemir insulin 30 units subcutaneous q.12 hours. 13. Lactinex 1 tablet q.12 hours. 14. Zyvox 600 mg p.o. q.12 hours. 15. Lisinopril 20 mg b.i.d. 16. Metolazone 5 mg daily. 17. Protonix 20 mg once a day. 18. Joaquina-Colace 2 tablets daily. 19. Aldactone 25 mg once a day. 20. Ultracet 1 p.r.n. PHYSICAL EXAMINATION: GENERAL: The patient is awake, alert. She is sitting in the bed, in mild respiratory distress. VITAL SIGNS: Her blood pressure is 116/56. There is no documented hypotension in the last few days. Temperature is 97.3, oxygen saturation on 4 liters nasal cannula 95-99%. HEENT: Pupils are mid constricted. Nonicteric sclerae. Conjunctivae pale. NECK: Supple. JVD slightly elevated. LUNGS: The patient has bilateral decreased air entry with basilar rales and scattered wheezing. HEART: S1, S2. Regular rate and rhythm. ABDOMEN: Distended, soft, lax. There is some abdominal wall edema. EXTREMITIES: She has bilateral 2+ edema and there is some chronic scaling and dryness of the skin in both lower legs. INVESTIGATIONS: WBC count 5.8, hemoglobin 9.7, platelet count of 231, neutrophils 59. INR 1.1. Sodium 141, potassium 4.3, chloride 97, bicarbonate 36.4, BUN 41, creatinine 1.8, glucose 195, calcium is 8.9. Urinalysis showing that there is proteinuria of more than 500. IMAGING STUDIES: The patient has abdominal ultrasound done, which shows that she has no free fluid visualized in the abdomen or pelvis. Lower extremity ultrasound was done, which shows no definite deep vein thrombosis, mildly enlarged inguinal lymph nodes. Chest x-ray was done which shows increased pulmonary venous congestion with some edema. Arterial study of the lower extremities done, which shows bilateral extremity peripheral arterial disease, moderately severe on the left side. ASSESSMENT AND PLAN: 1. Acute kidney injury. 2. Congestive heart failure. 3. Fluid overload status. 4. Cellulitis of the legs. 5. Diabetes mellitus. 6. Peripheral arterial disease. The patient has been getting the diuretics and her creatinine has gone up. She was on Lasix, which has been on hold because of the decreased urine output and increased creatinine. She is still on metolazone and Aldactone. The acute kidney injury is most likely because of the diuretics. The patient has chronic proteinuria and I will check the urine protein to quantify the proteinuria and most likely she has underlying early diabetic nephropathy. At present, I agree with holding the Lasix and she is on lisinopril, so I will also hold this since the creatinine is high. The patient has wanted to go home. I told her that her condition is not stable at present. Follow the urine output and BUN and creatinine. I will also get ultrasound of the kidneys. Thank you for the consultation. MD HARDY MaysJ/WALESKA , 02:18 PM , 03:09 PM
--- NOTE | 2017-09-11 16:06 | US ---
EXAM DATE: 09/11/2017 3:49 PM EDT AGE/SEX: 62 years / Female INDICATIONS: Increased lab values. CLINICAL DATA: This is the patient's initial encounter. Patient reports that signs and symptoms have been present for 1 day and indicates a pain score of 2/10. MEDICAL/SURGICAL HISTORY: . Congestive heart failure. Hypercholesterolemia. Deep venous thrombo sis. Myocardial infarction. Bilateral cataracts. Peripheral neuropathy. Head trauma. Migraines. CAD. Anticoagulant therapy. Hypertension. COPD. Sleep apnea. IBD. GERD. . Renal failure. Arthriti s. RLS. Diabetes. . Tonsillectomy. Coronary artery stent. Pacemaker. Bilateral Lasix. Cholecystectom y. Tubal ligation. Cyst removal. [place] [facility] [place]. . MEASUREMENTS: Right Kidney:__11.0 x 5.2 x 5.8 cm Left Kidney:__13.3 x 4.2 x 6.2 cm FINDINGS: Right Kidney: Normal echotexture and cortical thickness. No mass or hydronephrosis. Left Kidney: Normal echotexture and cortical thickness. No mass or hydronephrosis. Bladder: Within normal limits given the degree of distension. Other: None. CONCLUSION: 1. No acute findings. No hydronephrosis or perinephric fluid. No discrete mass. Electronically signed by: Felix Bartlett MD 09/11/2017 4:05 PM EDT
--- NOTE | 2017-10-04 09:20 | P.DS ---
Date of admission: 09/04/17 12:09 Primary care physician: UNKNOWN Attending physician on discharge: Eric Ornelas Anticipated date of discharge: 09/11/17 Brief History from admission: Per HPI: Pt is a 62 yr old female w PMHx, insulin dependent DM, O2 dependent at home, COPD/Asthma, PAD w stents in her leg, hx of DVT not on anticoagulation, HTN, hyperlipidemia, GERD, CHF with an EF of 30-35% based on echo of 09/20/16, neuropathy presented to the emergency room with complaints of swelling in her lower extremities, and swelling in her abdomen. She states for the past 3 weeks she noticed swelling in both her abdomen and her legs however her leg started cracking and although she has very dry skin, she noticed that her legs started oozing clear liquid then turned into pus. She denies any fevers but states that she is always very cold. She admits to history of neuropathy and usually has pain in her lower extremities however her pain has progressively gotten worse to the point has she feels like her pain is" her bones ". He states that the pain is bad enough that she has difficulty putting weight on her legs. She admits to mild nausea but no vomiting. Girth which is new for her. She last saw her bellstand attendant Dr. Acosta about a month ago and did not notify their office of the increase in swelling in her leg or abdominal girth. She states she is compliant with her medications. She was switched from Bumex to daily to Lasix about a month ago. She states that she gained about 30 pounds in the past 4 weeks. DS: Diagnosis - Discharge Diagnosis (1) CHF (congestive heart failure) Status: Acute (2) Cellulitis Status: Acute (3) COPD (chronic obstructive pulmonary disease) Status: Chronic (4) T2DM (type 2 diabetes mellitus) Status: Acute (5) HTN (hypertension) Status: Chronic (6) PAD (peripheral artery disease) Status: Chronic DS: Medications - Discharge Medications Prescriptions: cephalexin [Keflex] 500 mg PO TID #30 cap furosemide [Lasix] 40 mg PO BID 30 Days #60 tab DS: Summary Hospital Course: Mrs. Clayton is a 62 Y/O female with PMH CHF with an EF of 30-35% based on echo of 09/20/16, T2DM, COPD/Asthma on O2, PAD w stents, hx of DVT not on anticoagulation, HTN, hyperlipidemia, GERD, neuropathy presented to the emergency room with complaints of swelling in her lower extremities and abdomen. Patient found to have bilateral LE edema; findings suggestive of cellulitis and suggestive of CHF exacerbation. In regard to CHF, ACS rule-out performed. Cardiology was consuted; patient placed on IV Lasix diuresis and home Metolazone was continued. Patient had improvement in LE edema over course of her hospitalization. Doppler US obtained and patient found to be negative of DVT. For cellulitis, ID was consulted and patient was treated with Ancef with plans for Keflex at discharge. Podiatry were wound care were consulted for coexistent presence of stasis ulcers in association with edema; outpatient wound care follow-up arranged and patient given oral opiates for pain control. Patient developed increasing Cr to 1.99; Nephrology was consulted for suspected MICHELLE from diuresis. Lisinopril also held, urine protein and renal US showed no acute findings. Patient advised that her renal function was not yet stable for discharge and that we should monitor further. Patient stated that she would leave AMA since she needed to get home and could not sleep at the hospital. Patient left AMA; it was explained to her that she needed to monitor her renal function carefully. She will f/u with her Patient Safety Manager. Patient's chronic medical conditions of COPD, HTN, and T2DM were also treated during hospitalization. - Time Spent with Patient Total time spent providing and/or coordinating discharge services: Exam Vital signs: T 98.3, HR 69, RR 16, BP 131/61 Narrative: GENERAL: Morbidly obese; resting in chair SKIN: Significant improvement in pitting edema/anasarca involving the legs, thighs, and abdomen. Scaling of skin of distal LE's; scattered scabs CARDIOVASCULAR: Regular rate and rhythm. No murmur appreciated. RESPIRATORY: On 3 L O2 via NC. Normal rate. CTAB GASTROINTESTINAL: Abdomen soft, non-tender, nondistended. Normoactive bowel sounds MUSCULOSKELETAL: Bilateral lower extremities with evidence of chronic lymphedema , pitting edema NEUROLOGICAL: Awake and alert. No obvious cranial nerve deficits. Normal speech. PSYCHIATRIC: Appropriate mood and affect Results Procedures completed during hospitalization: none - Impressions ITS Impressions Abdomen/Bladder Ultrasound 09/11/17 00:00 CONCLUSION: 1. No acute findings. No hydronephrosis or perinephric fluid. No discrete mass. Discharge Plan - Discharge Disposition Patient Disposition: Left Against Medical Advice - Discharge Condition Condition: Serious - Discharge Order Discharge Orders: AMA Discharge (Routine); Ordered 09/11/17 Ordered By: Eric Ornelas Discharge Order (Routine); Ordered 09/11/17 Ordered By: Eric Ornelas - Discharge Details Anticipated Discharge Date: 09/11/17 Discharge Comment: Please make sure patient has lab order for BMP - Physicians Team Primary Care Provider: UNKNOWN, Attending Provider: Eric Ornelas Other Providers: Constanza Acosta MD ; Cheri Sanchez MD ; Marta Eid DPM ; Vilma Jacobo MD - Rxs /Orders / Referrals /Forms Prescriptions: New cephalexin [Keflex] 250 mg Capsule 500 mg PO TID Qty: 30 RF: 0 furosemide [Lasix] 20 mg Tablet 40 mg PO BID 30 Days Qty: 60 RF: 0 Continue albuterol sulfate [ProAir HFA] 90 mcg/actuation Hfa Aerosol Inhaler 2 puff INHALATION Q4-6H PRN (Reason: Shortness Of Breath) aspirin 81 mg Tablet,Delayed Release (Dr/Ec) 81 mg PO DAILY atorvastatin 80 mg Tablet 80 mg PO HS carvedilol [Coreg] 3.125 mg Tablet 3.125 mg PO BID clopidogrel 75 mg Tablet 75 mg PO DAILY gabapentin 300 mg Capsule 300 mg PO TID glipizide 5 mg Tablet 5 mg PO DAILY insulin aspart U-100 [Novolog U-100 Insulin aspart] 100 unit/mL Solution Sub-Q ipratropium-albuterol [Combivent Respimat] 20-100 mcg/actuation Mist 1 puff INHALATION QID lisinopril 20 mg Tablet 20 mg PO DAILY omeprazole 20 mg Capsule,Delayed Release(Dr/Ec) 20 mg PO DAILY Discontinued insulin glargine [Lantus U-100 Insulin] 100 unit/mL Solution 55 unit SUB-Q BID No Action insulin aspart U-100 [Novolog U-100 Insulin aspart] 100 unit/mL Solution 6 unit SUB-Q TID Ambulatory Orders / Order Sets / DME: Basic Metabolic Panel (Routine) Timeframe: 2 Days Location: Determined by Patient Ordered By: Eric Ornelas
== END 2017-09-11 16:31 | disposition left against medical advice (07) ==
LOC: N04 09-04 12:09
PROVIDERS: ADMIT Family Medicine; ATTEND Family Medicine

== ENCOUNTER 2017-10-14 17:21 | Inpatient (IN) ==
[2017-10-14] MEDS ORDERED: Vancomycin Inj 1,000 MG in Sodium Chlor 0.9% Inj 250 ML IV.SIG STA (19:44)
[2017-10-14] MEDS ORDERED: ceFAZolin 2 GM Premix Inj 2 GM/50 ML PIGGYBACK IV.SIG ONE (19:45)
--- NOTE | 2017-10-14 19:55 | ED ---
HPI General Chief complaint: Wound/Laceration Stated complaint: pain all over Time Seen by Provider: 10/14/17 19:13 History of Present Illness HPI narrative: 62-year-old female with a history of diabetes insulin-dependent, COPD/asthma, oxygen dependent, PAD with stents, hypertension, hyperlipidemia, CHF with pacemaker and defibrillator presents to the emergency department for evaluation of lower extremity and abdominal swelling with shortness of breath. Patient states that over the past month she has had gradual worsening of abdominal swelling and lower extremity swelling as well as shortness of breath. States that she saw her hand welt butter Dr. Acosta about 3 weeks ago and was changed from Bumex to Lasix 40 mg twice daily. She states that over the past week she has had worsening redness and drainage from her lower extremities. She states that she has had intermittent fever at night of around 100-101F. She denies any chest pain, lightheadedness, dizziness, nausea, vomiting, diarrhea. She also notes that she has been urinating only a small amount at a time which is abnormal for her. She recently changed PCPs to Dr. Rojas 3 weeks ago. No other complaints or concerns. Related Data Home Medications Medication Instructions Recorded Confirmed albuterol sulfate [ProAir HFA] 2 puff INHALATION Q4-6H PRN 09/07/17 10/14/17 aspirin 81 mg PO DAILY 09/07/17 10/14/17 atorvastatin 80 mg PO HS 09/07/17 10/14/17 carvedilol [Coreg] 3.125 mg PO BID 09/07/17 10/14/17 clopidogrel 75 mg PO DAILY 09/07/17 10/14/17 gabapentin 300 mg PO TID 09/07/17 10/14/17 glipizide 5 mg PO DAILY 09/07/17 10/14/17 insulin glargine [Lantus U-100 55 unit SUB-Q BID 09/07/17 10/14/17 Insulin] ipratropium-albuterol [Combivent 1 puff INHALATION QID 09/07/17 10/14/17 Respimat] lisinopril 20 mg PO DAILY 09/07/17 10/14/17 omeprazole 20 mg PO DAILY 09/07/17 10/14/17 insulin aspart U-100 [Novolog 6 unit SUB-Q TID 09/16/17 10/14/17 U-100 Insulin aspart] Allergies Allergy/AdvReac Type Severity Reaction Status Date / Time codeine Allergy Intermediate rash Verified 10/14/17 18:32 penicillin G Allergy Intermediate RASH,FEVER, Verified 10/14/17 18:32 SEIZURE *MDRO Multi-Drug Resistant AdvReac Unknown Cleared Uncoded 09/16/17 20:28 Organism 04/25/16 Review of Systems Except as stated in HPI: all other systems reviewed are negative [facility] Medical History Medical History Pacemaker (Acute) COPD with asthma (Acute) CHF (congestive heart failure) (Acute) Diabetes (Acute) HTN (hypertension) (Acute) Surgical History Surgical History History of cholecystectomy (Acute) Family History Family History Other CHF (congestive heart failure) Social History Social History Substance History: No History of Abuse Second Hand Smoke Exposure: No Smoking Status: Former smoker How Often Do You Have a Drink Containing Alcohol: Never Recent Travel in [facility] within the Last 8 Weeks: No Recent Out of Country Travel within the Last 8 Weeks: No Immunization History Tetanus Immunization: <5 Years Exam Narrative Exam Narrative: GENERAL: Morbidly obese female patient in no acute distress who is nontoxic appearing. SKIN: Warm and dry. HEAD: Normocephalic and atraumatic. EYES: No injection, drainage, or hyphema noted. PERRLA. EOMI. ENT: No nasal drainage noted. Oropharynx is clear. NECK: Supple and the trachea is midline. CARDIOVASCULAR: Regular rate and rhythm. RESPIRATORY: Breath sounds are equal bilaterally with no accessory muscle use, wheezing, rhonchi, or crackles. GASTROINTESTINAL: Abdominal edema/anasarca. Abdomen is soft, non-tender, and nondistended. No hepatosplenomegaly. MUSCULOSKELETAL: Pitting edema to bilateral lower extremities with erythema and warmth with yellow drainage. No obvious deformities, swelling, cyanosis, or ecchymosis is present throughout the upper and lower extremities. Patient has full range of motion without any signs of neurovascular compromise. Distal pulses are 2+ throughout. NEUROLOGICAL: Awake, alert, and oriented. Normal speech and gait. Cranial nerves are grossly intact. Course Initial Documented Vital Signs Temperature 99.1 F 10/14/17 18:32 Pulse Rate 97 H 10/14/17 18:32 Respiratory Rate 22 10/14/17 18:32 Blood Pressure 182/99 H 10/14/17 18:32 Pulse Oximetry 94 L 10/14/17 18:32 Last Documented Vital Signs Temperature 99.1 F 10/14/17 18:32 Pulse Rate 89 10/14/17 19:41 Respiratory Rate 22 10/14/17 19:41 Blood Pressure 160/80 H 10/14/17 19:41 Pulse Oximetry 98 10/14/17 21:20 Medical Decision Making CLIFFORD Attestation CLIFFORD supervised visit: Yes Attestation: I, Dr. Sanchez, have reviewed the advance practice practitioner's documentation and am in agreement, met with the patient face to face, made the diagnosis, and the medical decision making was done by me. The patient was initially evaluated by Delmi, the PA. Please see their complete history and physical. *My assessment and Findings: The patient presents with history of generalized swelling mainly involving her abdomen, lower extremities, associated with shortness of breath. The patient reports having a history of congestive heart failure. The patient's initial examination is remarkable for abdominal swelling with induration of her skin, lower extremity edema with erythema. During the course of the patient's emergency department visit, the patient's history, examination, and differential diagnosis were reviewed with the patient. The patient was placed on a awake overnight monitor with oximetry and frequent blood pressure monitoring. The patient had IV access obtained and blood work sent for analysis. The patient's laboratory studies were reviewed and remarkable for A white count of 9.2, platelets 405, 74.4 neutrophils, hemoglobin 10.3, PT PTT unremarkable, chemistry is remarkable for a blood sugar of 270, GFR of 59, calcium 8.4, BUN 22 , BNP 489, urinalysis showed 10 WBCs, 7 RBCs, small occult blood, hazy urine, rare bacteria, culture indicated. Lactic acid was 1.1, within normal limits, troponin I 0.03. Radiology studies were reviewed and remarkable for a chest x-ray that shows indistinct pulmonary central vasculature suspicious for pulmonary edema. The patient's results were discussed with the patient, including the plan of care. I explained that further testing and/ or monitoring is indicated based on the patient's history, examination, and/ or laboratory findings. Therefore, I recommended admission for additional evaluation. The patient expressed understanding and was agreeable with this plan. The patient was admitted to the hospital in stable condition and sent to a bed under the care of the [facility] service. [facility] Narrative Medical decision making narrative: 62-year-old female presents to the emergency department with lower extremity edema and anasarca with a history of CHF. Patient has cellulitis to the bilateral lower extremities. IV access is obtained, labs have been drawn and sent. Patient is placed on cardiac telemetry and pulse oximetry monitoring. Patient is administered broad- spectrum antibiotics with vancomycin and Ancef for treatment of cellulitis and possible sepsis. Labs show slightly elevated troponin 0.03 which is elevated from labs 1 month ago of less than 0.02. Chest x-ray shows cardiomegaly with possible pulmonary venous hypertension. CMP shows kidney function is unremarkable. Patient administered IV Lasix 60 mg for diuresis. She will be admitted to hospitalist service for CHF exacerbation with bilateral lower extremity cellulitis. I spoke with Dr. Mayberry [facility] who agrees to admit the patient to her service under observation. I discussed the case with my attending physician Dr. Sanchez who is aware of the patient's history, physical examination findings, and treatment plan. Differential Diagnosis Differential Diagnosis: CHF exacerbation versus cellulitis versus sepsis versus renal failure Medical Records Medical records reviewed: Yes I reviewed the patient's medical records. I reviewed the patient's most recent hospital admission September 04, 2017. She presented with similar complaints and presentation at that time. Her last echocardiogram was 09/20/16 showing EF 30-35%. She was given Ancef IV while in the hospital and Keflex orally when discharged per ID for the bilateral lower extremity cellulitis. Per the documentation she left AMA before her renal function was stable. Lab Data Result diagrams: 10/14/17 19:30 10/14/17 19:30 Lab Results 10/14/17 10/14/17 10/14/17 Range/Units 19:30 19:30 19:30 WBC 9.2 (4.0-11.0) th/mm3 RBC 4.71 (4.00-5.30) mil/mm3 Hgb 10.3 L (11.6-15.3) gm/dL Hct 34.9 L (35.0-46.0) % MCV 74.1 L (80.0-100.0) fL MCH 22.0 L (27.0-34.0) pg MCHC 29.7 L (32.0-36.0) % RDW 18.6 H (11.6-17.2) % Plt Count 405 (150-450) th/mm3 MPV 8.3 (7.0-11.0) fL Neut % (Auto) 74.4 H (16.0-70.0) % Lymph % (Auto) 12.1 (9.0-44.0) % Nicollet % (Auto) 9.7 H (0.0-8.0) % Eos % (Auto) 3.0 (0.0-4.0) % Baso % (Auto) 0.8 (0.0-2.0) % Neut # (Auto) 6.9 (1.8-7.7) th/mm3 Lymph # (Auto) 1.1 (1.0-4.8) th/mm3 Nicollet # (Auto) 0.9 (0.0-0.9) th/mm3 Eos # (Auto) 0.3 (0.0-0.4) th/mm3 Baso # (Auto) 0.1 (0.0-0.2) th/mm3 WBC Differential . Differential Comment Auto diff final PT 10.7 (9.8-11.6) sec INR 1.1 Ratio APTT 26.2 (24.3-30.1) sec Sodium (136-145) meq/L Potassium (3.5-5.1) meq/L Chloride (98-107) meq/L Carbon Dioxide (21.0-32.0) meq/L Anion Gap (5-15) meq/L BUN (7-18) mg/dL Creatinine (0.50-1.00) mg/dL Estimated GFR (>89) mL/min POC Glucose (68-110) mg/dl Random Glucose (74-106) mg/dL Lactic Acid (0.4-2.0) mmol/L Calcium (8.5-10.1) mg/dL Total Bilirubin (0.2-1.0) mg/dL AST (15-37) U/L ALT (10-53) U/L Alkaline Phosphatase (45-117) U/L Troponin I Cancelled B-Natriuretic Peptide (0-100) pg/mL Total Protein (6.4-8.2) g/dL Albumin (3.4-5.0) g/dL Urine Color (Yellw/Straw) Urine Clarity (Clear) Urine pH (5.0-8.5) Ur Specific Tranquillity (1.002-1.035) Urine Protein (Neg-Trace) mg/dL Urine Glucose (UA) (Negative) mg/dL Urine Ketones (Negative) mg/dL Urine Occult Blood (Negative) Urine Nitrate (Negative) Urine Bilirubin (Negative) Urine Urobilinogen (Less than 2) mg/dL Ur Leukocyte Esterase (Negative) Urine RBC (0-3) /hpf Urine WBC (0-5) /hpf Ur Squamous Epith Cells (0-5) /hpf Urine Bacteria (None) /hpf Hyaline Casts (0-3) /lpf Micro UA Comment Urine Culture Comments 10/14/17 10/14/17 10/14/17 Range/Units 19:30 19:30 19:59 WBC (4.0-11.0) th/mm3 RBC (4.00-5.30) mil/mm3 Hgb (11.6-15.3) gm/dL Hct (35.0-46.0) % MCV (80.0-100.0) fL MCH (27.0-34.0) pg MCHC (32.0-36.0) % RDW (11.6-17.2) % Plt Count (150-450) th/mm3 MPV (7.0-11.0) fL Neut % (Auto) (16.0-70.0) % Lymph % (Auto) (9.0-44.0) % Nicollet % (Auto) (0.0-8.0) % Eos % (Auto) (0.0-4.0) % Baso % (Auto) (0.0-2.0) % Neut # (Auto) (1.8-7.7) th/mm3 Lymph # (Auto) (1.0-4.8) th/mm3 Nicollet # (Auto) (0.0-0.9) th/mm3 Eos # (Auto) (0.0-0.4) th/mm3 Baso # (Auto) (0.0-0.2) th/mm3 WBC Differential Differential Comment PT (9.8-11.6) sec INR Ratio APTT (24.3-30.1) sec Sodium 142 (136-145) meq/L Potassium 4.1 (3.5-5.1) meq/L Chloride 105 (98-107) meq/L Carbon Dioxide 28.3 (21.0-32.0) meq/L Anion Gap 9 (5-15) meq/L BUN 22 H (7-18) mg/dL Creatinine 0.96 (0.50-1.00) mg/dL Estimated GFR 59 L (>89) mL/min POC Glucose (68-110) mg/dl Random Glucose 270 H (74-106) mg/dL Lactic Acid (0.4-2.0) mmol/L Calcium 8.4 L (8.5-10.1) mg/dL Total Bilirubin 0.2 (0.2-1.0) mg/dL AST 16 (15-37) U/L ALT 14 (10-53) U/L Alkaline Phosphatase 247 H (45-117) U/L Troponin I 0.03 B-Natriuretic Peptide 489 H (0-100) pg/mL Total Protein 7.1 (6.4-8.2) g/dL Albumin 1.9 L (3.4-5.0) g/dL Urine Color Yellow (Yellw/Straw) Urine Clarity Hazy H (Clear) Urine pH 5.0 (5.0-8.5) Ur Specific Tranquillity 1.013 (1.002-1.035) Urine Protein 500 or greater (Neg-Trace) mg/dL Urine Glucose (UA) 500 or greater (Negative) mg/dL Urine Ketones Negative (Negative) mg/dL Urine Occult Blood Small H (Negative) Urine Nitrate Negative (Negative) Urine Bilirubin Negative (Negative) Urine Urobilinogen Less than 2 (Less than 2) mg/dL Ur Leukocyte Esterase Negative (Negative) Urine RBC 7 H (0-3) /hpf Urine WBC 10 H (0-5) /hpf Ur Squamous Epith Cells 11 (0-5) /hpf Urine Bacteria Rare H (None) /hpf Hyaline Casts 4 (0-3) /lpf Micro UA Comment Cath-culture ind Urine Culture Comments Cath-cult indicated 10/14/17 10/14/17 Range/Units 20:00 21:55 WBC (4.0-11.0) th/mm3 RBC (4.00-5.30) mil/mm3 Hgb (11.6-15.3) gm/dL Hct (35.0-46.0) % MCV (80.0-100.0) fL MCH (27.0-34.0) pg MCHC (32.0-36.0) % RDW (11.6-17.2) % Plt Count (150-450) th/mm3 MPV (7.0-11.0) fL Neut % (Auto) (16.0-70.0) % Lymph % (Auto) (9.0-44.0) % Nicollet % (Auto) (0.0-8.0) % Eos % (Auto) (0.0-4.0) % Baso % (Auto) (0.0-2.0) % Neut # (Auto) (1.8-7.7) th/mm3 Lymph # (Auto) (1.0-4.8) th/mm3 Nicollet # (Auto) (0.0-0.9) th/mm3 Eos # (Auto) (0.0-0.4) th/mm3 Baso # (Auto) (0.0-0.2) th/mm3 WBC Differential Differential Comment PT (9.8-11.6) sec INR Ratio APTT (24.3-30.1) sec Sodium (136-145) meq/L Potassium (3.5-5.1) meq/L Chloride (98-107) meq/L Carbon Dioxide (21.0-32.0) meq/L Anion Gap (5-15) meq/L BUN (7-18) mg/dL Creatinine (0.50-1.00) mg/dL Estimated GFR (>89) mL/min POC Glucose 260 H (68-110) mg/dl Random Glucose (74-106) mg/dL Lactic Acid 1.1 (0.4-2.0) mmol/L Calcium (8.5-10.1) mg/dL Total Bilirubin (0.2-1.0) mg/dL AST (15-37) U/L ALT (10-53) U/L Alkaline Phosphatase (45-117) U/L Troponin I B-Natriuretic Peptide (0-100) pg/mL Total Protein (6.4-8.2) g/dL Albumin (3.4-5.0) g/dL Urine Color (Yellw/Straw) Urine Clarity (Clear) Urine pH (5.0-8.5) Ur Specific [place]ill[place] (1.002-1.035) Urine Protein (Neg-Trace) mg/dL Urine Glucose (UA) (Negative) mg/dL Urine Ketones (Negative) mg/dL Urine Occult Blood (Negative) Urine Nitrate (Negative) Urine Bilirubin (Negative) Urine Urobilinogen (Less than 2) mg/dL Ur Leukocyte Esterase (Negative) Urine RBC (0-3) /hpf Urine WBC (0-5) /hpf Ur Squamous Epith Cells (0-5) /hpf Urine Bacteria (None) /hpf Hyaline Casts (0-3) /lpf Micro UA Comment Urine Culture Comments Imaging Data Radiologist's impression: Chest X-Ray 10/14/17 19:31 CONCLUSION: Cardiomegaly stable from prior. Indistinct central bronchopulmonary markings suggests possible pulmonary venous hypertension. Discharge Plan Discharge Disposition Patient Disposition: 30 Still Patient Discharge Details Diagnosis: CHF (congestive heart failure), Cellulitis Physicians Team ED Provider: Leyla Sanchez ED Midlevel Provider: Lyric Beckett Primary Care Provider: Celena Muniz Attending Provider: Lisa Mayberry Status ED Status: Left Department Discharge Information Discharge Date/Time: 10/14/17 22:22
[2017-10-14 20:17] LABS: Baso # (Auto) 0.1 th/mm3 (0.0-0.2); Baso % (Auto) 0.8 % (0.0-2.0); Eos # (Auto) 0.3 th/mm3 (0.0-0.4); Hematocrit 34.9 % (35.0-46.0); Hemoglobin 10.3 gm/dL (11.6-15.3); Lymph # (Auto) 1.1 th/mm3 (1.0-4.8); Lymph % (Auto) 12.1 % (9.0-44.0); Mean Corpuscular Volume 74.1 fL (80.0-100.0); Mean Platelet Volume 8.3 fL (7.0-11.0); Mono # (Auto) 0.9 th/mm3 (0.0-0.9); Mono % (Auto) 9.7 % (0.0-8.0); Neut # (Auto) 6.9 th/mm3 (1.8-7.7); Neut % (Auto) 74.4 % (16.0-70.0); Platelet Count 405 th/mm3 (150-450); Red Blood Count 4.71 mil/mm3 (4.00-5.30); Red Cell Distribution Width 18.6 % (11.6-17.2); White Blood Count 9.2 th/mm3 (4.0-11.0)
[2017-10-14 20:18] LABS: Mean Corpuscular HGB Conc 29.7 % (32.0-36.0)
[2017-10-14 20:20] LABS: Activated Partial Thrombo Time 26.2 sec (24.3-30.1); INR 1.1 Ratio; Prothrombin Time 10.7 sec (9.8-11.6)
[2017-10-14 20:26] LABS: Bacteria,Urine Rare /hpf; Bilirubin,Urine Negative (Negative); Clarity,Urine Hazy (Clear); Color,Urine Yellow (Yellw/Straw); Glucose,Urine (UA) 500 or Greater mg/dL (Negative); Hyaline Casts,Urine 4 /lpf (0-3); Leukocyte Esterase,Urine Negative (Negative); Nitrite,Urine Negative (Negative); Specific Gravity,Urine 1.013 (1.002-1.035); Squamous Epithelial Cell,Urine 11 /hpf (0-5)
[2017-10-14 20:35] LABS: Albumin 1.9 g/dL (3.4-5.0); Anion Gap 9 meq/L (5-15); Blood Urea Nitrogen 22 mg/dL (7-18); Calcium 8.4 mg/dL (8.5-10.1); Carbon Dioxide 28.3 meq/L (21.0-32.0); Chloride 105 meq/L (98-107); Glomerular Filtration Rate 59 mL/min (>89); Glucose,Random 270 mg/dL (74-106); Potassium 4.1 meq/L (3.5-5.1); Sodium 142 meq/L (136-145)
[2017-10-14 20:36] LABS: Alanine Aminotransferase 14 U/L (10-53); Aspartate Aminotransferase 16 U/L (15-37)
--- NOTE | 2017-10-14 20:38 | XR ---
EXAM DATE: 10/14/2017 8:34 PM EDT AGE/SEX: 62 years / Female INDICATIONS: Chest discomfort. CLINICAL DATA: This is the patient's initial encounter. Patient reports that signs and symptoms have been present for 1 day and indicates a pain score of 5/10. MEDICAL/SURGICAL HISTORY: Diabetes mellitus type II. Congestive heart failure. Hypercholesterol emia. Coronary artery disease.Hypertension. COPD. Cholecystectomy. Tonsillectomy. Coronary artery st ent. Pacemaker. COMPARISON: [facility], CHEST PA & LAT, 09/03/2017. . FINDINGS: The heart is enlarged, similar to prior. The bronchopulmonary markings are slightly indistinct, but i mproved when compared to August 2017. Both hemidiaphragms are well delineated. Cardiac pacer leads in p lace. CONCLUSION: Cardiomegaly stable from prior. Indistinct central bronchopulmonary markings suggests possible pulmon manuel venous hypertension. Electronically signed by: Unruly Delgado MD 10/14/2017 8:36 PM EDT
[2017-10-14 20:39] LABS: Alkaline Phosphatase 247 U/L (45-117); Total Protein 7.1 g/dL (6.4-8.2); Troponin I 0.03 ng/mL (0.02-0.05)
[2017-10-14] MEDS ORDERED: Dextrose 50% in Water 50 ML Vial IV.PUSH PRN (21:20)
--- NOTE | 2017-10-14 21:58 | P.HP ---
History of Present Illness Service: [facility] Primary Care Physician: Celena Muniz DO History of Present Illness: 62-year-old female with a past medical history significant for insulin- dependent diabetes mellitus, COPD on 2 L nasal cannula, PAD, hypertension, hyperlipidemia, CHF with pacemaker and defibrillator presents to the emergency department for the evaluation of lower extremity edema and abdominal swelling with accompanying shortness of breath. The patient states that her shortness of breath is mild however her legs are cracked, red and weeping. She also complains of a redness under her pannus and under bilateral breasts. The patient reports compliance with both her diet and her medications. She was last seen for similar symptoms only 1 month ago and her Lasix was increased to 40 mg p.o. twice daily. She denies any chest pain. Mild to moderate abdominal pain associated with swelling. Bilateral lower extremity pain. No fevers/ chills. No nausea/vomiting/diarrhea. Review of Systems All other systems reviewed negative except as stated in HPI [facility] - History History Provided By: Patient - Medical History Medical History: Medical History (Last Updated 10/14/17 @ 18:35 by Donovan Rosas) Pacemaker (Acute) COPD with asthma (Acute) CHF (congestive heart failure) (Acute) Diabetes (Acute) HTN (hypertension) (Acute) - Surgical History Surgical History: Surgical History (Last Updated 10/14/17 @ 18:35 by Donovan Rosas) History of cholecystectomy (Acute) - Family History Family History: Family History (Last Updated 10/14/17 @ 21:53 by Lisa Mayberry MD) Other CHF (congestive heart failure) - Tobacco History Second Hand Smoke Exposure: No Smoking Status: Former smoker - Alcohol History How Often Do You Have a Drink Containing Alcohol: Monthly or less - Substance Use History Substance History: No History of Abuse - Travel History Recent Travel in the [place] Within the Last 8 Weeks: No Recent Travel Out of the Country Within the Last 8 Weeks: No - Immunization History Tetanus Immunization: <5 Years Medications and Allergies Active Medications: Active Medications Albuterol (Duoneb Neb (Prn)) 1 ampul NEB Q2HR NEB PRN PRN Reason: SHORTNESS OF BREATH/WHEEZING Aspirin (Ecotrin) 81 mg PO DAILY GUICHO Atorvastatin Calcium (Lipitor) 80 mg PO HS GUICHO Carvedilol (Coreg) 3.125 mg PO BID GUICHO Clopidogrel Bisulfate (Plavix) 75 mg PO DAILY GUICHO Dextrose (D50w Vial) 50 ml IV.PUSH UNSCH PRN PRN Reason: PER HYPOGLYCEMIA PROTOCOL Furosemide (Lasix Inj) 40 mg IV.PUSH BID@0900,1800 [facility] Gabapentin (Neurontin) 300 mg PO TID GUICHO Glipizide (Glucotrol) 5 mg PO DAILY GUICHO Glucagon (Glucagon Inj) 1 mg OTHER PRN PRN PRN Reason: for Hypoglycemia Protocol Heparin Sodium (Porcine) (Heparin Inj) 5,000 units SQ Q8HR GUICHO Clindamycin/Sodium Chloride (Cleocin 900 Mg/Ns Premix) 900 mg in 50 mls @ 100 mls/hr IV.SIG Q8H GUICHO Insulin Aspart (Novolog Insulin Correctional Sugar Inj) 0 unit SQ ACHS GUICHO; Protocol Insulin Detemir (Levemir Inj) 55 unit SQ BID GU[facility] Lisinopril (Prinivil) 20 mg PO DAILY [facility] Nystatin (Mycostatin Powder) 1 applicatio TOPICAL QID GUICHO Pantoprazole Sodium (Protonix) 20 mg PO DAILY GUICHO Sodium Chloride (Ns Flush) 2 ml IV.FLUSH UNSCH PRN PRN Reason: FLUSH AFTER USING IV ACCESS Sodium Chloride (Ns Flush) 2 ml IV.FLUSH BID GUICHO Sodium Chloride (Ns Flush) 2 ml IV.FLUSH UNSCH PRN PRN Reason: FLUSH AFTER USING IV ACCESS Allergies Allergy/AdvReac Type Severity Reaction Status Date / Time codeine Allergy Intermediate rash Verified 10/14/17 18:32 penicillin G Allergy Intermediate RASH,FEVER, Verified 10/14/17 18:32 SEIZURE *MDRO Multi-Drug Resistant AdvReac Unknown Cleared Uncoded 09/16/17 20:28 Organism 04/25/16 Home Medications Medication Instructions Recorded Confirmed Type albuterol sulfate [ProAir HFA] 2 puff INHALATION Q4-6H PRN 09/07/17 10/14/17 History aspirin 81 mg PO DAILY 09/07/17 10/14/17 History atorvastatin 80 mg PO HS 09/07/17 10/14/17 History carvedilol [Coreg] 3.125 mg PO BID 09/07/17 10/14/17 History clopidogrel 75 mg PO DAILY 09/07/17 10/14/17 History gabapentin 300 mg PO TID 09/07/17 10/14/17 History glipizide 5 mg PO DAILY 09/07/17 10/14/17 History insulin glargine [Lantus U-100 55 unit SUB-Q BID 09/07/17 10/14/17 History Insulin] ipratropium-albuterol [Combivent 1 puff INHALATION QID 09/07/17 10/14/17 History Respimat] lisinopril 20 mg PO DAILY 09/07/17 10/14/17 History omeprazole 20 mg PO DAILY 09/07/17 10/14/17 History insulin aspart U-100 [Novolog 6 unit SUB-Q TID 09/16/17 10/14/17 History U-100 Insulin aspart] Exam Vital signs: Vital Signs 10/14/17 18:32 10/14/17 18:36 10/14/17 19:41 Temperature 99.1 F Pulse Rate 97 H 89 Respiratory Rate 22 22 22 Blood Pressure 182/99 H 160/80 H Pulse Oximetry 94 L 94 L 98 10/14/17 21:20 Temperature Pulse Rate Respiratory Rate Blood Pressure Pulse Oximetry 98 Intake & Output 10/14/17 10/14/17 10/15/17 06:59 18:59 06:59 Weight 145.15 kg Narrative: Gen.: No acute distress Head: Normocephalic. Atraumatic. EENT: Pupils equal round and reactive to light. Nose without drainage. Airway intact. Throat without injection. Cardiovascular: Regular rate and rhythm. No murmurs, rubs or gallops. Respiratory: Lungs clear to auscultation bilaterally. No wheezes or rhonchi. Abdomen: Anasarca. No peritoneal signs. Musculoskeletal: 2+ bilateral edema Skin: Bilateral lower extremity erythema with cracks in the skin draining serosanguineous drainage. Neuro: Sensory and motor grossly intact. Cranial nerves II through XII grossly intact. Psych: Appropriate mood and affect Results - Labs CBC & Chem 7: 10/14/17 19:30 10/14/17 19:30 Labs: Laboratory Results - last 24 hr 10/14/17 10/14/17 10/14/17 19:30 19:30 19:30 WBC 9.2 RBC 4.71 Hgb 10.3 L Hct 34.9 L MCV 74.1 L MCH 22.0 L MCHC 29.7 L RDW 18.6 H Plt Count 405 MPV 8.3 Neut % (Auto) 74.4 H Lymph % (Auto) 12.1 Lee % (Auto) 9.7 H Eos % (Auto) 3.0 Baso % (Auto) 0.8 Neut # (Auto) 6.9 Lymph # (Auto) 1.1 Lee # (Auto) 0.9 Eos # (Auto) 0.3 Baso # (Auto) 0.1 WBC Differential . Differential Comment Auto diff final PT 10.7 INR 1.1 APTT 26.2 Sodium Potassium Chloride Carbon Dioxide Anion Gap BUN Creatinine Estimated GFR Random Glucose Lactic Acid Calcium Total Bilirubin AST ALT Alkaline Phosphatase Troponin I Cancelled B-Natriuretic Peptide Total Protein Albumin Urine Color Urine Clarity Urine pH Ur Specific [place] Urine Protein Urine Glucose (UA) Urine Ketones Urine Occult Blood Urine Nitrate Urine Bilirubin Urine Urobilinogen Ur Leukocyte Esterase Urine RBC Urine WBC Ur Squamous Epith Cells Urine Bacteria Hyaline Casts Micro UA Comment Urine Culture Comments 10/14/17 10/14/17 10/14/17 19:30 19:30 19:59 WBC RBC Hgb Hct MCV MCH MCHC RDW Plt Count MPV Neut % (Auto) Lymph % (Auto) [place] % (Auto) Eos % (Auto) Baso % (Auto) Neut # (Auto) Lymph # (Auto) Lee # (Auto) Eos # (Auto) Baso # (Auto) WBC Differential Differential Comment PT INR APTT Sodium 142 Potassium 4.1 Chloride 105 Carbon Dioxide 28.3 Anion Gap 9 BUN 22 H Creatinine 0.96 Estimated GFR 59 L Random Glucose 270 H Lactic Acid Calcium 8.4 L Total Bilirubin 0.2 AST 16 ALT 14 Alkaline Phosphatase 247 H Troponin I 0.03 B-Natriuretic Peptide 489 H Total Protein 7.1 Albumin 1.9 L Urine Color Yellow Urine Clarity Hazy H Urine pH 5.0 Ur Specific [place] 1.013 Urine Protein 500 or greater Urine Glucose (UA) 500 or greater Urine Ketones Negative Urine Occult Blood Small H Urine Nitrate Negative Urine Bilirubin Negative Urine Urobilinogen Less than 2 Ur Leukocyte Esterase Negative Urine RBC 7 H Urine WBC 10 H Ur Squamous Epith Cells 11 Urine Bacteria Rare H Hyaline Casts 4 Micro UA Comment Cath-culture ind Urine Culture Comments Cath-cult indicated 10/14/17 20:00 WBC RBC Hgb Hct MCV MCH MCHC RDW Plt Count MPV Neut % (Auto) Lymph % (Auto) Lee % (Auto) Eos % (Auto) Baso % (Auto) Neut # (Auto) Lymph # (Auto) Lee # (Auto) Eos # (Auto) Baso # (Auto) WBC Differential Differential Comment PT INR APTT Sodium Potassium Chloride Carbon Dioxide Anion Gap BUN Creatinine Estimated GFR Random Glucose Lactic Acid 1.1 Calcium Total Bilirubin AST ALT Alkaline Phosphatase Troponin I B-Natriuretic Peptide Total Protein Albumin Urine Color Urine Clarity Urine pH Ur Specific [place] Urine Protein Urine Glucose (UA) Urine Ketones Urine Occult Blood Urine Nitrate Urine Bilirubin Urine Urobilinogen Ur Leukocyte Esterase Urine RBC Urine WBC Ur Squamous Epith Cells Urine Bacteria Hyaline Casts Micro UA Comment Urine Culture Comments - Imaging Impressions Chest X-Ray 10/14/17 19:31 CONCLUSION: Cardiomegaly stable from prior. Indistinct central bronchopulmonary markings suggests possible pulmonary venous hypertension. Caprini VTE Risk Assessment Caprini VTE Risk Assessment: Moderate/High Risk (score >= 2) Caprini Risk Assessment Model: Point Value = 1 Point Value = 2 Point Value = 3 Point Value = 5 Age 41-60 Minor surgery BMI > 25 kg/m2 Swollen legs Varicose veins or History of unexplained or recurrent spontaneous Oral contraceptives or hormone replacement Sepsis (< 1 month) Serious lung disease, including pneumonia (< 1 month) Abnormal pulmonary function Acute myocardial infarction Congestive heart failure (< 1 month) History of inflammatory bowel disease Medical patient at bed rest Age 61-74 Arthroscopic surgery Major open surgery (> 45 min) Laparoscopic surgery (> 45 min) Malignancy Confined to bed (> 72 hours) Immobilizing plaster cast Central venous access Age >= 75 History of VTE Family history of VTE Factor V Leiden Prothrombin [id number] Lupus anticoagulant Anticardiolipin antibodies Elevated serum homocysteine Heparin-induced thrombocytopenia Other congenital or acquired thrombophilia Stroke (< 1 month) Elective arthroplasty Hip, pelvis, or leg fracture Acute spinal cord injury (< 1 month) Prophylaxis Regimen: Total Risk Factor Score Risk Level Prophylaxis Regimen 0-1 Low Early ambulation 2 Moderate Order ONE of the following: *Sequential Compression Device (SCD) *Heparin 5000 units SQ BID 3-4 Higher Order ONE of the following medications: *Heparin 5000 units SQ TID *Enoxaparin/Lovenox 40 mg SQ daily (WT < 150 kg, CrCl > 30 mL/min) *Enoxaparin/Lovenox 30 mg SQ daily (WT < 150 kg, CrCl > 10-29 mL/min) *Enoxaparin/Lovenox 30 mg SQ BID (WT < 150 kg, CrCl > 30 mL/min) AND/OR *Sequential Compression Device (SCD) 5 or more Highest Order ONE of the following medications: *Heparin 5000 units SQ TID (Preferred with Epidurals) *Enoxaparin/Lovenox 40 mg SQ daily (WT < 150 kg, CrCl > 30 mL/min) *Enoxaparin/Lovenox 30 mg SQ daily (WT < 150 kg, CrCl > 10-29 mL/min) *Enoxaparin/Lovenox 30 mg SQ BID (WT < 150 kg, CrCl > 30 mL/min) AND *Sequential Compression Device (SCD) Assessment and Plan - Plan Assessment/plan: 1. CHF exacerbation IV Lasix Fluid restriction Increase oxygen as needed 2. Cellulitis Secondary to edema Clindamycin 3. Insulin-dependent diabetes mellitus Continue home Levemir Sliding-scale insulin Monitor blood glucose 4. COPD Continue home oxygen at 2 L Duo nebs 5. Hypertension/hyperlipidemia Continue home medications FEN Heart healthy, diabetic diet with fluid restriction Electrolytes: Monitor and replete as needed Heparin
[2017-10-15] MEDS: Clindamycin 900 mg/NS Premix 900 MG/50 ML PIGGYBACK IV.SIG SCH ×4 (01:15→22:21)
[2017-10-15] MEDS: Heparin - SQ 10,000 UNITS/ML Vial SQ SCH ×4 (06:15→22:21)
--- NOTE | 2017-10-15 09:22 | P.PNIM ---
Subjective Interval history: sitting up in chair remains sob with activity leg swelling significant with weeping of RLE ulceration no fever overnight no cp abd. swelling remains Tele reviewed, SR 12 point ROS completed, negative except as noted above Physical Exam Vital signs: Vital Signs 10/14/17 18:32 10/14/17 18:36 10/14/17 19:41 Temperature 99.1 F Pulse Rate 97 H 89 Respiratory Rate 22 22 22 Blood Pressure 182/99 H 160/80 H Pulse Oximetry 94 L 94 L 98 10/14/17 20:42 10/14/17 21:20 10/15/17 00:00 Temperature 98.4 F Pulse Rate 94 H Respiratory Rate 18 Blood Pressure Pulse Oximetry 99 98 98 10/15/17 03:20 10/15/17 04:00 10/15/17 07:46 Temperature 98.4 F 97.8 F Pulse Rate 88 79 84 Respiratory Rate 18 20 Blood Pressure 146/66 H 136/69 Pulse Oximetry 97 100 Intake & Output 10/14/17 10/15/17 10/15/17 18:59 06:59 18:59 Intake Total 350 / 350 Balance 350 / 350 Weight 145.15 kg Intake: IV 350 / 350 Cleocin 900 mg/NS Premix 900 mg 50 / 50 In 50 ml @ 100 mls/hr IV.SIG Q8H GUICHO Rx#:[id number] Vancomycin Inj 1,000 MG In NS 250 / 250 Inj 250 ML @ 250 mls/hr IV.SIG STAT STA Rx#:[id number] Ancef 2 GM Premix Inj 2 gm In 50 / 50 50 ml @ 100 mls/hr IV.SIG ONCE ONE Rx#:[id number] Other: Date of Last Bowel Movement 10/13/17 Narrative: GENERAL: morbidly obese female, noted with anasarca SKIN: Warm and dry. HEAD: Atraumatic. Normocephalic. EYES: Pupils equal and round. No scleral icterus. No injection or drainage. ENT: No nasal bleeding or discharge. Mucous membranes pink and moist. NECK: Trachea midline. No JVD. CARDIOVASCULAR: Regular rate and rhythm. RESPIRATORY: diminished, poor inspiratory effort, faint bibasilar rales. GASTROINTESTINAL: Obese, firm, non tender, flank edema. Hepatic and splenic margins not palpable due to body habitus MUSCULOSKELETAL: BLE with chronic NEUROLOGICAL: Awake and alert. No obvious cranial nerve deficits. Motor grossly within normal limits. Five out of 5 muscle strength in the arms and legs. Normal speech. PSYCHIATRIC: Appropriate mood and affect; insight and judgment normal. Results - Labs CBC & Chem 7: 10/14/17 19:30 10/14/17 19:30 Laboratory Results - last 24 hr 10/14/17 10/14/17 10/14/17 19:30 19:30 19:30 WBC 9.2 RBC 4.71 Hgb 10.3 L Hct 34.9 L MCV 74.1 L MCH 22.0 L MCHC 29.7 L RDW 18.6 H Plt Count 405 MPV 8.3 Neut % (Auto) 74.4 H Lymph % (Auto) 12.1 [place] % (Auto) 9.7 H Eos % (Auto) 3.0 Baso % (Auto) 0.8 Neut # (Auto) 6.9 Lymph # (Auto) 1.1 [place] # (Auto) 0.9 Eos # (Auto) 0.3 Baso # (Auto) 0.1 WBC Differential . Differential Comment Auto diff final PT 10.7 INR 1.1 APTT 26.2 Sodium Potassium Chloride Carbon Dioxide Anion Gap BUN Creatinine Estimated GFR POC Glucose Random Glucose Lactic Acid Calcium Total Bilirubin AST ALT Alkaline Phosphatase Troponin I Cancelled B-Natriuretic Peptide Total Protein Albumin Urine Color Urine Clarity Urine pH Ur Specific [place] Urine Protein Urine Glucose (UA) Urine Ketones Urine Occult Blood Urine Nitrate Urine Bilirubin Urine Urobilinogen Ur Leukocyte Esterase Urine RBC Urine WBC Ur Squamous Epith Cells Urine Bacteria Hyaline Casts Micro UA Comment Urine Culture Comments 10/14/17 10/14/17 10/14/17 19:30 19:30 19:59 WBC RBC Hgb Hct MCV MCH MCHC RDW Plt Count MPV Neut % (Auto) Lymph % (Auto) [place] % (Auto) Eos % (Auto) Baso % (Auto) Neut # (Auto) Lymph # (Auto) [place] # (Auto) Eos # (Auto) Baso # (Auto) WBC Differential Differential Comment PT INR APTT Sodium 142 Potassium 4.1 Chloride 105 Carbon Dioxide 28.3 Anion Gap 9 BUN 22 H Creatinine 0.96 Estimated GFR 59 L POC Glucose Random Glucose 270 H Lactic Acid Calcium 8.4 L Total Bilirubin 0.2 AST 16 ALT 14 Alkaline Phosphatase 247 H Troponin I 0.03 B-Natriuretic Peptide 489 H Total Protein 7.1 Albumin 1.9 L Urine Color Yellow Urine Clarity Hazy H Urine pH 5.0 Ur Specific [place] 1.013 Urine Protein 500 or greater Urine Glucose (UA) 500 or greater Urine Ketones Negative Urine Occult Blood Small H Urine Nitrate Negative Urine Bilirubin Negative Urine Urobilinogen Less than 2 Ur Leukocyte Esterase Negative Urine RBC 7 H Urine WBC 10 H Ur Squamous Epith Cells 11 Urine Bacteria Rare H Hyaline Casts 4 Micro UA Comment Cath-culture ind Urine Culture Comments Cath-cult indicated 10/14/17 10/14/17 20:00 21:55 WBC RBC Hgb Hct MCV MCH MCHC RDW Plt Count MPV Neut % (Auto) Lymph % (Auto) [place] % (Auto) Eos % (Auto) Baso % (Auto) Neut # (Auto) Lymph # (Auto) [place] # (Auto) Eos # (Auto) Baso # (Auto) WBC Differential Differential Comment PT INR APTT Sodium Potassium Chloride Carbon Dioxide Anion Gap BUN Creatinine Estimated GFR POC Glucose 260 H Random Glucose Lactic Acid 1.1 Calcium Total Bilirubin AST ALT Alkaline Phosphatase Troponin I B-Natriuretic Peptide Total Protein Albumin Urine Color Urine Clarity Urine pH Ur Specific [place] Urine Protein Urine Glucose (UA) Urine Ketones Urine Occult Blood Urine Nitrate Urine Bilirubin Urine Urobilinogen Ur Leukocyte Esterase Urine RBC Urine WBC Ur Squamous Epith Cells Urine Bacteria Hyaline Casts Micro UA Comment Urine Culture Comments Microbiology 10/15/17 00:08 Abscess - Leg Gram Stain - Final - Imaging Impressions Chest X-Ray 10/14/17 19:31 CONCLUSION: Cardiomegaly stable from prior. Indistinct central bronchopulmonary markings suggests possible pulmonary venous hypertension. Assessment and Plan - Plan Assessment/plan: 62 year old morbidly obese female presents with sob and worsening leg edema. 1. CHF exacerbation Continue with IV Lasix 40 mg BID Fluid restriction Increase oxygen as needed Consult cardiology for recommendations 2. Cellulitis secondary chronic venous stasis and ulcers. Continue with Clindamycin Consult wound care 3. Insulin-dependent diabetes mellitus Continue home Levemir Sliding-scale insulin Monitor blood glucose 4. COPD Continue home oxygen at 2 L Duo nebs 5. Hypertension/hyperlipidemia Continue home medications 6. Obesity Needs to lose weight. continue with present diet FEN Heart healthy, diabetic diet with fluid restriction Electrolytes: Monitor and replete as needed Heparin DC planning in progress. Will arrange HHC. Follow electrolytes in am
--- NOTE | 2017-10-15 09:44 | P.DCO ---
- Physical Therapy Order: Evaluate and treat - Home Health Nursing Order: Medical education, CHF education, Wound care and dressing changes Instructions: chronic wounds, leg wraps - Certification I have seen patient Manuela Clayton on 10/15/17. My clinical findings support the need for the requested home health care services because: chf exacerbation, lower extremity edema Limited mobility due to disease progression, Patient has SOB, Need for psychosocial assistance I certify that my clinical findings support that this patient is homebound because: Hx COPD - exertion dyspnea/weakness
[2017-10-15] MEDS: Insulin NovoLOG Aspart Correctional Sugar Inj SQ SCH ×4 (10:53→20:45)
[2017-10-15] MEDS: Insulin Detemir Inj 1,000 UNIT/10 ML Vial SQ SCH ×2 (10:54→20:46)
[2017-10-15] MEDS: Gabapentin 300 MG Capsule PO SCH ×3 (10:58→19:20)
[2017-10-15] MEDS: glipiZIDE 5 MG Tablet PO SCH (11:00)
[2017-10-15] MEDS: Nystatin 100,000 UNITS/GM Powder 15 GM Bottle TOPICAL SCH ×5 (11:25→20:47)
[2017-10-15] MEDS: Pantoprazole Sodium 20 MG DR Tablet PO SCH (11:25)
[2017-10-15] MEDS: Lisinopril 20 MG Tablet PO SCH (11:25)
[2017-10-15 13:21] LABS: Calcium 8.3 mg/dL (8.5-10.1); Carbon Dioxide 28.1 meq/L (21.0-32.0)
[2017-10-15 13:26] LABS: Potassium 5.1 meq/L (3.5-5.1)
[2017-10-15] MEDS ORDERED: Acetaminophen 325 MG Tablet PO PRN (17:19)
--- NOTE | 2017-10-15 23:23 | ECG ---
Date Performed: 10/14/2017 Time Performed: 20:03:59 PTAGE: 62 years EKG: ELECTRONIC VENTRICULAR PACEMAKER ABNORMAL RHYTHM ECG PREVIOUS TRACING : 09/03/2017 11.44 Since the previous tracing, no significant change noted DOCTOR: Tera Kebede Interpretating Date/Time 10/15/2017 23:22:28
[2017-10-16] MEDS: Heparin - SQ 10,000 UNITS/ML Vial SQ SCH ×3 (05:59→21:11)
[2017-10-16] MEDS: Clindamycin 900 mg/NS Premix 900 MG/50 ML PIGGYBACK IV.SIG SCH ×2 (06:00→15:42)
[2017-10-16] MEDS: Insulin NovoLOG Aspart Correctional Sugar Inj SQ SCH ×4 (09:49→21:13)
[2017-10-16] MEDS: Gabapentin 300 MG Capsule PO SCH ×3 (09:52→18:05)
[2017-10-16] MEDS: Pantoprazole Sodium 20 MG DR Tablet PO SCH (09:54)
[2017-10-16] MEDS: Lisinopril 20 MG Tablet PO SCH (09:54)
[2017-10-16] MEDS: glipiZIDE 5 MG Tablet PO SCH (09:54)
[2017-10-16] MEDS: Nystatin 100,000 UNITS/GM Powder 15 GM Bottle TOPICAL SCH ×4 (10:01→22:27)
--- NOTE | 2017-10-16 10:38 | P.PN ---
Subjective Interval history: sitting up in chair, states unable to lay flat remains with significant leg and abdominal swelling legs painful sob with activity no cp no fever diuresing ok 12 point ros completed, negative except as noted above Physical Exam Vital signs: Vital Signs 10/15/17 11:42 10/15/17 16:00 10/15/17 20:00 Temperature 97.4 F L 97.5 F L 97.7 F Pulse Rate 86 79 86 Respiratory Rate 20 20 20 Blood Pressure 110/58 L 122/66 121/71 Pulse Oximetry 98 99 99 10/15/17 20:27 10/15/17 20:57 10/16/17 00:00 Temperature 98.6 F Pulse Rate 90 83 Respiratory Rate 24 20 Blood Pressure 127/66 Pulse Oximetry 99 96 100 10/16/17 04:00 10/16/17 04:37 10/16/17 08:00 Temperature 97.4 F L 97.4 F L Pulse Rate 74 77 73 Respiratory Rate 20 20 16 Blood Pressure 106/63 97/48 L Pulse Oximetry 98 98 10/16/17 09:45 Temperature Pulse Rate Respiratory Rate Blood Pressure Pulse Oximetry 98 Intake & Output 10/15/17 10/16/17 10/16/17 18:59 06:59 18:59 Intake Total 850 / 850 1324 / 1324 Output Total 700 / 700 Balance 150 / 150 1324 / 1324 Intake: IV 50 / 50 150 / 150 Cleocin 900 mg/NS Premix 900 mg 50 / 50 150 / 150 In 50 ml @ 100 mls/hr IV.SIG Q8H GUICHO Rx#:[id number] Oral 800 / 800 1174 / 1174 Output: Urine 700 / 700 Other: # Voids 3 Date of Last Bowel Movement 10/14/17 Narrative: GENERAL: morbidly obese female, noted with anasarca SKIN: bilat LE ulcers, skin weeping HEAD: Atraumatic. Normocephalic. EYES: Pupils equal and round. No scleral icterus. No injection or drainage. ENT: No nasal bleeding or discharge. Mucous membranes pink and moist. NECK: Trachea midline. No JVD. CARDIOVASCULAR: Regular rate and rhythm. RESPIRATORY: diminished, poor inspiratory effort, faint bibasilar rales posterior lobes. GASTROINTESTINAL: Obese, firm, non tender, flank edema. Hepatic and splenic margins not palpable due to body habitus MUSCULOSKELETAL: BLE with lymphedema, has a weeping ulcer left pretibial area. Difficult to palpate pulses. NEUROLOGICAL: Awake and alert. No obvious cranial nerve deficits. Motor grossly within normal limits. Five out of 5 muscle strength in the arms and legs. Normal speech. PSYCHIATRIC: Appropriate mood and affect; insight and judgment normal. Results - Labs CBC & Chem 7: 10/16/17 13:00 10/16/17 13:00 Laboratory Results - last 24 hr 10/15/17 10/15/17 10/15/17 12:15 16:56 20:13 Sodium 141 Potassium 5.1 D Chloride 107 Carbon Dioxide 28.1 Anion Gap 6 BUN 20 H Creatinine 0.92 Estimated GFR 62 L POC Glucose 182 H 211 H Random Glucose 198 H Calcium 8.3 L 10/16/17 10/16/17 09:23 10:03 Sodium Potassium Chloride Carbon Dioxide Anion Gap BUN Creatinine Estimated GFR POC Glucose 54 L 79 Random Glucose Calcium Microbiology 10/14/17 19:59 Catheterized Urine Urine Culture - Final Lactobacillus species 10/14/17 19:55 Blood - Peripheral Aerobic Blood Culture - Preliminary No growth in 1 day 10/14/17 19:55 Blood - Peripheral Anaerobic Blood Culture - Preliminary No growth in 1 day 10/14/17 20:00 Blood - Peripheral Aerobic Blood Culture - Preliminary No growth in 1 day 10/14/17 20:00 Blood - Peripheral Anaerobic Blood Culture - Preliminary No growth in 1 day 10/15/17 00:08 Abscess - Leg Gram Stain - Final Assessment and Plan - Plan Assessment/plan: 62 year old morbidly obese female presents with sob and worsening leg edema. Acute on chronic CHF exacerbation -Continue with IV Lasix 40 mg TID, will add metolazone 5 mg daily -Fluid restriction 1000 cc daily -Strict I/O, d/w RN -continue oxygen at 2L/NC -cardiology consult pending, will have RN call consult again -Continue lisinopril, Coreg Cellulitis secondary chronic venous stasis and ulcers. -Continue with Clindamycin 900 mg IV q 8 -Consult wound care-pending -Infectious disease consultation, pending -follow cultures MICHELLE -renal function improved -monitor BMP -avoid nephrotoxic agents. Insulin-dependent diabetes mellitus -Continue home Levemir, will adjust and decrease due to episode of hypoglycemia this morning -Accu-Cheks before meals and at bedtime with insulin therapy COPD -continue home oxygen at 2 L -Duo [facility] as needed Hypertension/hyperlipidemia -Continue home medications Obesity -Needs to lose weight. continue with present diet continue Heparin for DVT prophylaxis Pt. requires inpatient admission, needs aggressive diuresis and strict I/O along with cardiology consult. Pt. at risk for decompensated heart failure, renal injury, poss if not admitted as inpatient. Anticipated discharge to home with [facility] when stable.
[2017-10-16] MEDS: Insulin Detemir Inj 1,000 UNIT/10 ML Vial SQ SCH ×2 (12:52→21:12)
[2017-10-16 14:03] LABS: Hematocrit 35.2 % (35.0-46.0); Hemoglobin 10.1 gm/dL (11.6-15.3); Mean Corpuscular Hemoglobin 22.1 pg (27.0-34.0); Mean Corpuscular Volume 76.9 fL (80.0-100.0); Platelet Count 370 th/mm3 (150-450); Red Blood Count 4.58 mil/mm3 (4.00-5.30); Red Cell Distribution Width 18.8 % (11.6-17.2); White Blood Count 8.2 th/mm3 (4.0-11.0)
[2017-10-16 14:04] LABS: Mean Corpuscular HGB Conc 28.7 % (32.0-36.0)
[2017-10-16] MEDS ORDERED: Vancomycin Inj 1,000 MG in Sodium Chlor 0.9% Inj 250 ML IV.SIG ONE (14:21)
[2017-10-16 14:28] LABS: Calcium 8.2 mg/dL (8.5-10.1); Potassium 4.7 meq/L (3.5-5.1)
[2017-10-16] MEDS ORDERED: Vancomycin Consult Pharmacy 1 EACH OTHER SCH (15:00)
[2017-10-16] MEDS: metOLazone 5 MG Tablet PO SCH (15:00)
--- NOTE | 2017-10-16 18:27 | MB ---
cc: Constanza Acosta MD DATE: 10/16/2017 REASON FOR CONSULTATION: Progressive shortness of breath, congestive heart failure exacerbation. HISTORY OF PRESENT ILLNESS: She is a 62-year-old white female with ischemic cardiomyopathy and ejection fraction of 25-30% with multiple admissions for congestive heart failure, now admitted with progressive shortness of breath and massive abdominal and leg swelling. The patient states she is unable to lie flat at all. She states she has been compliant with her medications and low salt diet, but has gained significant weight. She has not followed up in the office. PAST MEDICAL AND SURGICAL HISTORY: Chronic kidney disease stage III, pacemaker, [employer] biventricular ICD, former tobacco use, peripheral arterial disease, status post left SFA atherectomy, hypertension, morbid obesity, ischemic cardiomyopathy with ejection fraction of 25-30%, type 2 diabetes mellitus, coronary artery disease, status post drug-coated stents in the circumflex artery, hyperlipidemia, syncope due to complete atrioventricular block, status post pacer, right ankle fracture in October 2016 and bilateral chronic leg cellulitis. SOCIAL HISTORY: The patient denies smoking or drinking. ALLERGIES: CODEINE AND PENICILLIN. MEDICATIONS: In the hospital include: 1. Intravenous albumin 25% every 8 hours. 2. Aspirin 81 mg daily. 3. Atorvastatin 80 mg daily. 4. Carvedilol 3.125 mg twice a day. 5. Plavix 75 mg daily. 6. Lasix 40 mg IV 3 times a day. 7. Gabapentin 300 mg 3 times a day. 8. Glipizide 5 mg daily. 9. Subcutaneous heparin 5000 units every 8 hours. 10. Insulin aspart and Detemir. 11. Lisinopril 20 mg daily. 12. Metolazone 5 mg daily. 13. Protonix 20 mg daily. 14. Tramadol 50 mg every 6 hours as needed for pain. 15. Vancomycin 1.5 g every 24 hours. REVIEW OF SYSTEMS: As stated in history of present illness. PHYSICAL EXAMINATION: GENERAL: The patient is in mild respiratory distress, sitting up in chair. VITAL SIGNS: Blood pressure 156/86 mmHg, heart rate 74 beats per minute. HEAD AND NECK: Short neck, unable to assess for JVD. LUNGS: Clear to auscultation. HEART: Normal S1 and S2. No murmurs heard. ABDOMEN: Massively distended, bowel sounds not heard, with lymphedematous changes over the skin of the abdomen. EXTREMITIES: Massive leg swelling with erythema and lymphedematous skin changes. NEUROLOGIC: Without focal deficits. DIAGNOSTIC DATA: Chest x-ray compatible with congestive heart failure, biventricular pacer in place. Electrocardiogram with ventricular pacing. Blood work: Sodium 139, potassium 4.7, BUN 23, creatinine 1.05, GFR 53. Hemoglobin 10.1, white count 8.2, platelet count 370. PT and INR within normal limits. ASSESSMENT AND PLAN: 1. Ischemic cardiomyopathy with signs of congestive heart failure. The patient is already being treated with intravenous diuretics. We will increase Lasix to 80 mg 3 times a day, continue metolazone and albumin. 2. Coronary artery disease, without signs of angina. Okay to stop Plavix at this time and continue aspirin indefinitely. 3. Morbid obesity. Lifestyle changes recommended. 4. Hyperlipidemia. We will measure the LDL and adjust statin as needed. In general, patient with poor compliance and poor prognosis. We will continue to follow. MD GISELL Fine/WALESKA , 06:09 PM , 06:17 PM DARSHANA
--- NOTE | 2017-10-16 18:57 | P.CONID ---
History of Present Illness Service: ID Consult date: 10/16/17 Requesting Physician: Marina Rodas Reason for Consult: cellulitis Primary Care Provider: Celena Muniz DO History of Present Illness: 62 F wit morbid obesity, CHF, AICD and chronic venostasis, b/l LE edema, anasarca presents with BLE redness, swelling and pain and drainage She has positive blood clx 1/4 bottles with GPC she presernted with no fever no leukocytosis but has a borderline elevated lactic acid Review of Systems All other systems reviewed negative except as stated in HPI Respiratory: Reports shortness of breath PMFSH - History History Provided By: Patient - Medical History Medical History: Medical History (Last Reviewed 10/16/17 @ 18:48 by Cuca Oglesby MD) Pacemaker (Acute) COPD with asthma (Acute) CHF (congestive heart failure) (Acute) Diabetes (Acute) HTN (hypertension) (Acute) - Surgical History Surgical History: Surgical History (Last Reviewed 10/16/17 @ 18:48 by Cuca Oglesby MD) History of cholecystectomy (Acute) - Family History Family History: Family History (Last Reviewed 10/16/17 @ 18:48 by Cuca Oglesby MD) Other CHF (congestive heart failure) - Tobacco History Second Hand Smoke Exposure: No Smoking Status: Former smoker - Alcohol History How Often Do You Have a Drink Containing Alcohol: Never - Substance Use History Substance History: No History of Abuse - Travel History Recent Travel in the [place] Within the Last 8 Weeks: No Recent Travel Out of the Country Within the Last 8 Weeks: No - Immunization History Tetanus Immunization: <5 Years Medications and Allergies Active Medications: Active Medications Acetaminophen (Tylenol) 650 mg PO Q4H PRN PRN Reason: PAIN 1-10 AND/OR FEVER >101F Albuterol (Duoneb Neb (Prn)) 1 ampul NEB Q2HR NEB PRN PRN Reason: SHORTNESS OF BREATH/WHEEZING Last Admin: 10/16/17 16:45 Dose: 1 ampul Aspirin (Ecotrin) 81 mg PO DAILY [facility] Last Admin: 10/16/17 09:52 Dose: 81 mg Atorvastatin Calcium (Lipitor) 80 mg PO HS [facility] Last Admin: 10/15/17 20:47 Dose: 80 mg Carvedilol (Coreg) 3.125 mg PO BID [facility] Last Admin: 08/08/18 09:54 Dose: Not Given Clopidogrel Bisulfate (Plavix) 75 mg PO DAILY [facility] Last Admin: 10/16/17 09:52 Dose: 75 mg Dextrose (D50w Vial) 50 ml IV.PUSH UNSCH PRN PRN Reason: PER HYPOGLYCEMIA PROTOCOL Furosemide (Lasix Inj) 40 mg IV.PUSH TID [facility] Last Admin: 10/16/17 15:42 Dose: 40 mg Gabapentin (Neurontin) 300 mg PO TID [facility] Last Admin: 10/16/17 18:05 Dose: 300 mg Glipizide (Glucotrol) 5 mg PO DAILY [facility] Last Admin: 10/16/17 09:54 Dose: 5 mg Glucagon (Glucagon Inj) 1 mg OTHER PRN PRN PRN Reason: for Hypoglycemia Protocol Heparin Sodium (Porcine) (Heparin Inj) 5,000 units SQ Q8HR [facility] Last Admin: 10/16/17 15:00 Dose: 5,000 units Pharmacy Profile Note (Vancomycin Consult Pharmacy) 0 mls @ 0 mls/hr OTHER UNSCH [facility] Vancomycin HCl 1,500 mg/ (Sodium Chloride) 515 mls @ 250 mls/hr IV.SIG Q24H [facility] Albumin Human (Flexbumin 25% Inj) 100 mls @ 60 mls/hr IV.SIG Q8HR [facility] Insulin Aspart (Novolog Insulin Correctional Sugar Inj) 0 unit SQ ACHS [facility]; Protocol Last Admin: 10/16/17 18:03 Dose: Not Given Insulin Detemir (Levemir Inj) 40 unit SQ BID [facility] Lisinopril (Prinivil) 20 mg PO DAILY [facility] Last Admin: 10/16/17 09:54 Dose: Not Given Metolazone (Zaroxolyn) 5 mg PO DAILY [facility] Last Admin: 10/16/17 15:00 Dose: 5 mg Miscellaneous Information ([facility] Ordered Lab Info) 0 each OTHER ONCE ONE Stop: 18 08:46 Nystatin (Mycostatin Powder) 1 applicatio TOPICAL QID [facility] Last Admin: 10/16/17 18:05 Dose: 1 applicatio Pantoprazole Sodium (Protonix) 20 mg PO DAILY [facility] Last Admin: 10/16/17 09:54 Dose: 20 mg Sodium Chloride (Ns Flush) 2 ml IV.FLUSH BID [facility] Last Admin: 10/16/17 09:54 Dose: 2 ml Sodium Chloride (Ns Flush) 2 ml IV.FLUSH UNSCH PRN PRN Reason: FLUSH AFTER USING IV ACCESS Tramadol HCl (Ultram) 50 mg PO Q6H PRN PRN Reason: moderate pain Last Admin: 10/16/17 18:05 Dose: 50 mg Allergies Allergy/AdvReac Type Severity Reaction Status Date / Time codeine Allergy Intermediate rash Verified 10/14/17 18:32 penicillin G Allergy Intermediate RASH,FEVER, Verified 10/14/17 18:32 SEIZURE *MDRO Multi-Drug Resistant AdvReac Unknown Cleared Uncoded 09/16/17 20:28 Organism 04/25/16 Home Medications Medication Instructions Recorded Confirmed Type albuterol sulfate [ProAir HFA] 2 puff INHALATION Q4-6H PRN 09/07/17 10/14/17 History aspirin 81 mg PO DAILY 09/07/17 10/14/17 History atorvastatin 80 mg PO HS 09/07/17 10/14/17 History carvedilol [Coreg] 3.125 mg PO BID 09/07/17 10/14/17 History clopidogrel 75 mg PO DAILY 09/07/17 10/14/17 History gabapentin 300 mg PO TID 09/07/17 10/14/17 History glipizide 5 mg PO DAILY 09/07/17 10/14/17 History insulin glargine [Lantus U-100 55 unit SUB-Q BID 09/07/17 10/14/17 History Insulin] ipratropium-albuterol [Combivent 1 puff INHALATION QID 09/07/17 10/14/17 History Respimat] lisinopril 20 mg PO DAILY 09/07/17 10/14/17 History omeprazole 20 mg PO DAILY 09/07/17 10/14/17 History insulin aspart U-100 [Novolog 6 unit SUB-Q TID 09/16/17 10/14/17 History U-100 Insulin aspart] Exam Vital signs: Vital Signs 10/15/17 20:00 10/15/17 20:27 10/15/17 20:57 Temperature 97.7 F Pulse Rate 86 90 Respiratory Rate 20 24 Blood Pressure 121/71 Pulse Oximetry 99 99 96 10/16/17 00:00 10/16/17 04:00 10/16/17 04:37 Temperature 98.6 F 97.4 F L Pulse Rate 83 74 77 Respiratory Rate 20 20 20 Blood Pressure 127/66 106/63 Pulse Oximetry 100 98 10/16/17 08:00 10/16/17 09:15 10/16/17 09:45 Temperature 97.4 F L Pulse Rate 73 70 Respiratory Rate 16 Blood Pressure 97/48 L Pulse Oximetry 98 98 98 10/16/17 11:00 10/16/17 11:57 10/16/17 16:00 Temperature 97.4 F L 97.5 F L Pulse Rate 74 80 Respiratory Rate 16 16 Blood Pressure 123/72 156/86 H Pulse Oximetry 97 100 99 10/16/17 16:46 Temperature Pulse Rate 74 Respiratory Rate 15 Blood Pressure Pulse Oximetry Intake & Output 10/15/17 10/16/17 10/16/17 18:59 06:59 18:59 Intake Total 850 / 850 1324 / 1324 50 / 50 Output Total 700 / 700 Balance 150 / 150 1324 / 1324 50 / 50 Intake: IV 50 / 50 150 / 150 50 / 50 Cleocin 900 mg/NS Premix 900 mg 50 / 50 150 / 150 50 / 50 In 50 ml @ 100 mls/hr IV.SIG Q8H [facility] Rx#:[id number] Oral 800 / 800 1174 / 1174 Output: Urine 700 / 700 Other: # Voids 3 11 Date of Last Bowel Movement 10/14/17 10/13/17 - Constitutional mild distress, morbidly obese - Routine HEENT Exam Head: Present: normocephalic, atraumatic Eye: Present: EOMI, PERRL ENT: Present: mucous membranes moist, oropharynx clear Comments: edentul;ous - Routine Neck Exam Present: supple, full ROM - Routine Chest/Breast/Axilla Exam Chest wall: Present: pacemaker (AICD) Breast: Present: induration Comments: L breast edema - Routine Respiratory Exam Present: decreased breath sounds, CTA bilaterally - Routine Cardiovascular Exam Present: RRR, S1, S2 Comments: + murmur - Routine Abdominal Exam Comments: markedly edematous opbese and protruding tight - Routine Extremities Exam Present: cyanosis, edema (4+ tight up to the abdomen; L foot is cool to cold; + srous drainage multiple superficial wounds) - Routine Skin Exam Present: intact, erythema, dry - Routine Neurological Exam Present: alert, oriented X3, CN II-XII intact, moving all extremities, vision grossly intact, hearing grossly intact, normal speech - Routine Psychiatric Exam Present: normal affect, normal thought process, cooperative Results - Labs CBC & Chem 7: 10/16/17 13:00 10/16/17 13:00 Labs: Laboratory Results - last 24 hr 10/15/17 10/16/17 10/16/17 20:13 09:23 10:03 WBC RBC Hgb Hct MCV MCH MCHC RDW Plt Count MPV Sodium Potassium Chloride Carbon Dioxide Anion Gap BUN Creatinine Estimated GFR POC Glucose 211 H 54 L 79 Random Glucose Calcium 10/16/17 10/16/17 10/16/17 12:45 13:00 13:00 WBC 8.2 RBC 4.58 Hgb 10.1 L Hct 35.2 MCV 76.9 L MCH 22.1 L MCHC 28.7 L RDW 18.8 H Plt Count 370 MPV 8.0 Sodium 139 Potassium 4.7 Chloride 106 Carbon Dioxide 29.0 Anion Gap 4 L BUN 23 H Creatinine 1.05 H Estimated GFR 53 L POC Glucose 84 Random Glucose 61 L D Calcium 8.2 L 10/16/17 18:02 WBC RBC Hgb Hct MCV MCH MCHC RDW Plt Count MPV Sodium Potassium Chloride Carbon Dioxide Anion Gap BUN Creatinine Estimated GFR POC Glucose 105 Random Glucose Calcium Assessment and Plan - Plan Morbid obesity chronic venostasis BLE cellulits Low grade gram posiitve bacteremia of unknown significance UA with too many sq epi cells to reliably inteprete cont vancomycin fu ID/S on isolate poly Rodas
[2017-10-16] MEDS: Albumin Human 25% Inj 100 ML IV.SIG SCH (21:12)
[2017-10-17] MEDS: Heparin - SQ 10,000 UNITS/ML Vial SQ SCH ×3 (05:54→22:40)
[2017-10-17] MEDS: Albumin Human 25% Inj 100 ML IV.SIG SCH (05:54)
[2017-10-17] MEDS: Pantoprazole Sodium 20 MG DR Tablet PO SCH (08:40)
[2017-10-17] MEDS: Lisinopril 20 MG Tablet PO SCH (08:40)
[2017-10-17] MEDS: metOLazone 5 MG Tablet PO SCH (08:40)
[2017-10-17] MEDS: Nystatin 100,000 UNITS/GM Powder 15 GM Bottle TOPICAL SCH ×4 (08:40→20:22)
[2017-10-17] MEDS: Gabapentin 300 MG Capsule PO SCH ×3 (08:40→17:05)
[2017-10-17] MEDS: Insulin NovoLOG Aspart Correctional Sugar Inj SQ SCH ×4 (08:41→22:40)
[2017-10-17] MEDS: Insulin Detemir Inj 1,000 UNIT/10 ML Vial SQ SCH (08:41)
[2017-10-17] MEDS ORDERED: metOLazone 5 MG Tablet PO SCH (09:00)
[2017-10-17 09:11] LABS: ABG PCO2 72 mmHg (38-42); ABG PO2 84 mmHg (61-120)
[2017-10-17] MEDS ORDERED: Morphine Sulfate Inj 2 MG/ML Vial IV.PUSH ONE (09:53)
--- NOTE | 2017-10-17 10:08 | XR ---
EXAM DATE: 10/17/2017 10:02 AM EDT AGE/SEX: 62 years / Female INDICATIONS: Short of breath CLINICAL DATA: This is the patient's subsequent encounter. Patient reports that signs and symptoms h ave been present for 3 days and indicates a pain score of 0/10. MEDICAL/SURGICAL HISTORY: . Diabetes mellitus type II. Congestive heart failure. Hypercholeste rolemia. Coronary artery disease.Hypertension. COPD. . Cholecystectomy. Tonsillectomy. Coronary art raghavendra stent. Pacemaker COMPARISON: [facility] [place] 1[place] S[place]/14/2017. . FINDINGS: A single AP view of the chest demonstrates the lungs to be symmetrically aerated without evidence of mass, infiltrate or effusion. Cardiomegaly with increase in pulmonary vascularity. Left-sided pacemak er/defibrillator is unchanged. The cardiomediastinal contours are unremarkable. Osseous structures a re intact. CONCLUSION: Cardiomegaly with increase in pulmonary vascularity. Electronically signed by: Jc Strauss MD 10/17/2017 10:07 AM EDT
[2017-10-17 10:52] LABS: ABG Base Excess 3.2 mmol/L (-2-2); ABG PCO2 61 mmHg (38-42); ABG PO2 93 mmHg (61-120)
--- NOTE | 2017-10-17 11:15 | MB ---
cc: Tea Duran MD DATE: 10/17/2017 DATE OF : [birth year] REASON FOR CONSULTATION: Respiratory distress and critical care management. REFERRING PHYSICIAN: Dr. Benjamin. HISTORY OF PRESENT ILLNESS: The patient is a 62-year-old female with past medical history of diabetes mellitus, COPD on 2 liters nasal cannula, obstructive sleep apnea on CPAP at home, however, she is not using it; hypertension, hyperlipidemia, CHF with pacemaker placement. She presented to [facility] ED with edema and swelling of lower extremity and shortness of breath. The patient was admitted under Hospitalist Service and was seen by Infectious Disease Service. She is currently being treated for a urinary tract infection, gram-positive bacteremia. In addition, she had a wound culture from her leg positive for Pseudomonas species and Staphylococcus aureus. Chest x-ray from this morning showed increased pulmonary vascularity. She had an ABG on 2 liters at 8:42 which showed acute hypercapnic respiratory acidosis with a pH of 7.24, CO2 72, PaO2 84, bicarbonate of 30, and saturation 93%. She was subsequently placed on BiPAP 14/8 with 30% FiO2. Due to lethargy and respiratory distress, Critical Care Medicine was consulted. When seen, the patient able to respond to questions appropriately; however, she dozes off and falls back to sleep. PAST MEDICAL HISTORY: Significant for CHF, COPD, diabetes mellitus, peripheral arterial disease, hypertension, hyperlipidemia. PAST SURGICAL HISTORY: Previous pacemaker placement, previous cholecystectomy. ALLERGIES: PENICILLIN AND CODEINE. SOCIAL HISTORY: Ex-smoker, social drinker. REVIEW OF SYSTEMS: As per HPI. Rest of review of systems limited due to the patient's altered mental status. CURRENT MEDICATIONS: Reviewed, which include: 1. Lasix. 2. Albuterol. 3. Coreg. 4. Plavix. 5. Lasix. 6. Neurontin. 7. Lisinopril. 8. Protonix. 9. Vancomycin. PHYSICAL EXAMINATION: GENERAL: A 62-year-old female lying in bed in mild respiratory distress, lethargic. VITAL SIGNS: Temperature 97.6, pulse of 83, respiratory rate of 20, blood pressure 130/76, saturation 96% on the BiPAP with 30% FiO2. HEAD: Atraumatic, normocephalic. Pupils are equal, round, reactive to light and accommodation. Extraocular muscles intact. Conjunctivae pink. Nonicteric sclerae. Oral mucosa within normal. NECK: Supple. No JVD. No thyromegaly. Trachea in the midline. CARDIOVASCULAR: Regular rate and rhythm. Normal S1, S2. No murmurs, rubs or gallops noted. PULMONARY: Bilateral equal air entry, diminished in the bases. ABDOMEN: Soft, obese, nontender, nondistended, positive bowel sounds. EXTREMITIES: No cyanosis, clubbing, 2+ edema. NEUROLOGIC: No focal sensory deficit. LABORATORY DATA: From yesterday, WBC 8.2, hemoglobin 10, hematocrit 35, platelet count of 370. Sodium 139, potassium 4.7, chloride 106, CO2 of 29, BUN 23, creatinine 1.05, glucose of 105. ABG from this morning showed a pH of 7.24, CO2 72, PaO2 84, bicarbonate 30. Sat 93% on 2 liter oxygen. RADIOGRAPHIC STUDIES: Chest x-ray showed increased pulmonary vascularity. IMPRESSION: 1. Acute hypercapnic and hypoxemic respiratory failure. 2. Chronic obstructive pulmonary disease exacerbation. 3. Obstructive sleep apnea/morbid obesity. 4. Gram-positive bacteremia. 5. Urinary tract infection. 6. Bilateral lower extremity cellulitis. 7. Anemia. 8. History of congestive heart failure. 9. History of hypertension. 10. History of diabetes mellitus. 11. Peripheral arterial disease. 12. Hyperlipidemia. RECOMMENDATIONS: 1. Monitor neuro status closely and avoid any sedatives. 2. Continue with oxygen and maintain sats above 92%. 3. Bronchodilators. We will place on DuoNeb every 4 hours and every 2 hours as needed for shortness of breath. We will add Symbicort 160/4.5 two puffs twice daily. 4. Start Solu-Medrol 60 mg IV every 8 hours. 5. We will repeat ABG now. If there is any worsening in respiratory acidosis or mental status, will proceed with intubation and mechanical ventilation. Monitor heart rate and blood pressure closely and maintain MAP greater than 65 mmHg. Continue with Lipitor, aspirin, Plavix., Lasix and lisinopril as ordered. 6. We will obtain a 2-D echo to evaluate ventricular function. 7. Monitor renal function, I's and O's and avoid nephrotoxins. Electrolyte replacement per protocol. Continue with diuretics. She is currently on Lasix 40 mg t.i.d. and Zaroxolyn 5 mg daily. 8. Keep n.p.o. for now until mental status improves and continue with Protonix 20 mg daily for gastrointestinal prophylaxis. 9. Continue with antibiotics per ID. She is currently on vancomycin. Monitor for signs of infection, which include fever and WBC. Blood culture from 10/14/2017 showed gram-positive cocci in 2/4 bottles. Urine culture from 10/14/2017 showed Lactobacillus species. Wound culture from lower extremity showed Staphylococcus aureus and Pseudomonas species. 10. Sliding scale insulin with Accu-Cheks for glycemic control. 11. Monitor CBC. 12. Gastrointestinal prophylaxis with Protonix and deep vein thrombosis prophylaxis with heparin subcutaneously. 13. Further recommendations will depend on the hospital course. MD KASIA Kevin/ERIK , 10:47 AM , 11:01 AM
[2017-10-17] MEDS: Vancomycin Inj 1,500 MG in Sodium Chlor 0.9% Inj 500 ML IV.SIG SCH (11:27)
[2017-10-17] MEDS: MethylPREDNISolone Sod Succinate Inj 125 MG/2 ML Vial IV.PUSH SCH ×3 (11:32→22:39)
--- NOTE | 2017-10-17 11:45 | XR ---
EXAM DATE: 10/17/2017 11:36 AM EDT AGE/SEX: 62 years / Female INDICATIONS: Short of breath. CLINICAL DATA: This is the patient's initial encounter. Patient reports that signs and symptoms have been present for 3 days and indicates a pain score of 0/10. MEDICAL/SURGICAL HISTORY: Diabetes mellitus type II. Hypertension. CHF, coronary artery diseas e, COPD . Coronary artery stent, pacemaker COMPARISON: [facility], CHEST 1V SINGLE AP, 10/17/2017. . FINDINGS: Small lung volumes. There are diffuse but basilar predominant bilateral airspace opacities. No percep tible large effusion. No pneumothorax seen. Heart size stable, within normal limits. Cardiac pacer again seen. CONCLUSION: Small lung volumes with basilar predominant bilateral airspace consolidation. Heart size within rio l limits. Electronically signed by: Myles Dumont MD 10/17/2017 11:44 AM EDT
--- NOTE | 2017-10-17 12:35 | P.PN ---
Subjective Interval history: pt. evaluated this am, noted lethargic. Awakes to voice but somnolent. No cp, no sob when asked. Blood glucose 64, D50 ordered to be given . Sats 97 on oxygen at 2L/NC. Urine output marginal despite aggressive diuresing. Stat ABGs, CXR ordered. Noted hypercarbic, BIPAP ordered. RT at [facility]. Request transfer to ICU, Dr. Benjamin at [facility] evaluating. Pt. hemodynamically stable. Mentation improved some after BIPAP. Attempted to discuss goals of care and poss intubation. Pt. restless at times and removing bipap. 12 point review of systems limited secondary to respiratory distress. Physical Exam Vital signs: Vital Signs 10/16/17 16:00 10/16/17 16:46 10/16/17 19:27 Temperature 97.5 F L Pulse Rate 80 74 86 Respiratory Rate 16 15 18 Blood Pressure 156/86 H 124/76 Pulse Oximetry 99 100 10/16/17 20:00 10/17/17 00:00 10/17/17 04:00 Temperature 98.2 F 97.6 F Pulse Rate 82 82 Respiratory Rate 22 16 Blood Pressure 132/66 107/75 Pulse Oximetry 99 100 10/17/17 07:15 10/17/17 08:00 10/17/17 08:15 Temperature 97.6 F Pulse Rate 83 81 Respiratory Rate 20 Blood Pressure 130/76 Pulse Oximetry 97 10/17/17 09:25 10/17/17 12:00 Temperature 98.5 F Pulse Rate 81 Respiratory Rate 17 Blood Pressure 110/69 Pulse Oximetry 96 100 Intake & Output 10/16/17 10/17/17 10/17/17 18:59 06:59 18:59 Intake Total 50 / 50 670 / 670 120 / 120 Output Total 260 / 260 125 / 125 Balance 50 / 50 410 / 410 -5 / -5 Weight 148.4 kg Intake: IV 50 / 50 350 / 350 Flexbumin 25% Inj 100 ML @ 60 100 / 100 mls/hr IV.SIG Q8HR GUICHO Rx#: [id number] Cleocin 900 mg/NS Premix 900 mg 50 / 50 In 50 ml @ 100 mls/hr IV.SIG Q8H [facility] Rx#:[id number] Vancomycin Inj 1,000 MG In NS 250 / 250 Inj 250 ML @ 250 mls/hr IV.SIG ONCE ONE Rx#:[id number] Oral 320 / 320 120 / 120 Output: Urine 260 / 260 Urine Amount (Catheter) 125 / 125 Indwelling Urethral Catheter 125 / 125 Other: # Voids 11 1 Date of Last Bowel Movement 10/13/17 10/13/17 Weight On Admission 145.15 kg Narrative: GENERAL: morbidly obese female, noted with anasarca SKIN: bilat LE ulcers, skin weeping HEAD: Atraumatic. Normocephalic. EYES: Pupils equal and round. No scleral icterus. No injection or drainage. ENT: No nasal bleeding or discharge. Mucous membranes pink and moist. NECK: Trachea midline. No JVD. CARDIOVASCULAR: Regular rate and rhythm. RESPIRATORY: diminished, poor inspiratory effort, faint bibasilar rales posterior lobes. GASTROINTESTINAL: Obese, firm, non tender, flank edema. Hepatic and splenic margins not palpable due to body habitus MUSCULOSKELETAL: BLE with lymphedema, has a weeping ulcers bilateral pretibial area. Difficult to palpate pulses. NEUROLOGICAL: Somnolent, wakes to voice but falls back asleep. Follow simple commands. Nonfocal. PSYCHIATRIC: Appropriate mood and affect; insight and judgment normal. - Urinary Catheter Management Indwelling Urethral Catheter Cath placed during this visit: yes Reason for continuing: Hourly intake/output Insertion date: 10/17/17 Insertion time: 09:20 Results - Labs CBC & Chem 7: 10/17/17 12:37 10/16/17 13:00 Laboratory Results - last 24 hr 10/16/17 10/16/17 10/16/17 12:45 13:00 13:00 WBC 8.2 RBC 4.58 Hgb 10.1 L Hct 35.2 MCV 76.9 L MCH 22.1 L MCHC 28.7 L RDW 18.8 H Plt Count 370 MPV 8.0 Puncture Site Patient Temperature O2 Saturation ABG pH ABG pCO2 ABG pO2 ABG HCO3 ABG O2 Content ABG Base Excess ABG Methemoglobin Gonzalo Test Hemoglobin Carboxyhemoglobin O2 Delivery Device Liter Flow Vent Setting Inspired O2 Critical Value Sodium 139 Potassium 4.7 Chloride 106 Carbon Dioxide 29.0 Anion Gap 4 L BUN 23 H Creatinine 1.05 H Estimated GFR 53 L POC Glucose 84 Random Glucose 61 L D Calcium 8.2 L 10/16/17 10/17/17 10/17/17 18:02 07:59 08:42 WBC RBC Hgb Hct MCV MCH MCHC RDW Plt Count MPV Puncture Site Left radial Patient Temperature 98.6 O2 Saturation 93 ABG pH 7.24 L* ABG pCO2 72 H* ABG pO2 84 ABG HCO3 30 H ABG O2 Content 12.6 ABG Base Excess 3.0 H ABG Methemoglobin 0.5 Gonzalo Test Present Hemoglobin 9.5 L Carboxyhemoglobin 1.9 O2 Delivery Device Nasal cannula Liter Flow 2.00 Vent Setting Inspired O2 28 Critical Value Yes Sodium Potassium Chloride Carbon Dioxide Anion Gap BUN Creatinine Estimated GFR POC Glucose 105 64 L Random Glucose Calcium 10/17/17 10/17/17 10/17/17 09:00 10:35 12:16 WBC RBC Hgb Hct MCV MCH MCHC RDW Plt Count MPV Puncture Site Left radial Patient Temperature 98.6 O2 Saturation 95 ABG pH 7.30 L ABG pCO2 61 H* ABG pO2 93 ABG HCO3 29 H ABG O2 Content 12.9 ABG Base Excess 3.2 H ABG Methemoglobin 0.5 Gonzalo Test Present Hemoglobin 9.6 L Carboxyhemoglobin 2.0 O2 Delivery Device Bipap Liter Flow Vent Setting Ipap 18/epap 5 Inspired O2 30 Critical Value Yes Sodium Potassium Chloride Carbon Dioxide Anion Gap BUN Creatinine Estimated GFR POC Glucose 94 115 H Random Glucose Calcium Microbiology 10/14/17 19:55 Blood - Peripheral Aerobic Blood Culture - Preliminary gram positive cocci 10/14/17 19:55 Blood - Peripheral Anaerobic Blood Culture - Preliminary No growth in 3 days 10/14/17 20:00 Blood - Peripheral Aerobic Blood Culture - Preliminary gram positive cocci 10/14/17 20:00 Blood - Peripheral Anaerobic Blood Culture - Preliminary No growth in 3 days 10/15/17 00:08 Abscess - Leg Gram Stain - Final 10/15/17 00:08 Abscess - Leg Wound Culture - Preliminary Staphylococcus aureus Pseudomonas species gram negative rods 10/14/17 19:59 Catheterized Urine Urine Culture - Final Lactobacillus species - Imaging Impressions Chest X-Ray 10/17/17 09:52 CONCLUSION: Cardiomegaly with increase in pulmonary vascularity. Chest X-Ray 10/17/17 10:51 CONCLUSION: Small lung volumes with basilar predominant bilateral airspace consolidation. Heart size within normal limits. Assessment and Plan - Assessment (1) Acute respiratory failure with hypoxia and hypercarbia Code(s): J96.01 - Acute respiratory failure with hypoxia; J96.02 - Acute respiratory failure with hypercapnia Status: Acute (2) CHF (congestive heart failure) Code(s): I50.9 - Heart failure, unspecified Status: Acute (3) Cellulitis Code(s): L03.90 - Cellulitis, unspecified Status: Acute (4) COPD (chronic obstructive pulmonary disease) Code(s): J44.9 - Chronic obstructive pulmonary disease, unspecified Status: Acute (5) T2DM (type 2 diabetes mellitus) Code(s): E11.9 - Type 2 diabetes mellitus without complications Status: Chronic (6) HTN (hypertension) Code(s): I10 - Essential (primary) hypertension Status: Chronic (7) PAD (peripheral artery disease) Code(s): I73.9 - Peripheral vascular disease, unspecified Status: Chronic (8) Pacemaker Code(s): Z95.0 - Presence of cardiac pacemaker Status: Chronic (9) Obesity Code(s): E66.9 - Obesity, unspecified Status: Chronic - Plan Assessment/plan: 62 year old morbidly obese female presents with sob and worsening leg edema. Pt. found lethargic, falling back to sleep. ABGs revealed hypercarbic and hypoxia. -Stat ABG and chest x-ray ordered. -Consult log sorter and transferred to ICU, case discussed with attending. Dr. Benjamin evaluated and spoke to Dr. Rivera. -We will give an extra 40 mg of Lasix IV 1 -Patient placed on BiPAP 12/4, repeat ABGs in 1 hour -Keep n.p.o. for now Acute on chronic CHF exacerbation Ischemic cardiomyopathy Coronary artery disease -Continue with IV Lasix 40 mg TID, and metolazone 5 mg daily -Continue with albumin 25 g 3 times daily before Lasix -Fluid restriction 1000 cc daily. Discussed with RN, no more ice chips -Strict I/O -continue oxygen at 2L/NC -Cardiology evaluated, input appreciated. Notes reviewed -We will Place Barkley catheter for strict intake and output. -Continue lisinopril, Coreg -Continue statin and aspirin Cellulitis secondary chronic venous stasis and ulcers. Blood cultures 2 out of 2 positive for GPC -Discontinued clindamycin -Started on Vanco, pharmacy consultation -Appreciate ID input, discussed with Dr. Oglesby -Wound culture positive for staph aureus and Pseudomonas, -Consult wound care-pending MICHELLE, renal function improving -avoid nephrotoxic agents. -Stat BMP pending Insulin-dependent diabetes mellitus Hypoglycemia episode -Levemir now at 40 units subcu twice daily due to hypoglycemia since yesterday -Stop glipizide -Accu-Cheks before meals and at bedtime with insulin therapy COPD History of sleep apnea uses CPAP at home. -BiPAP now, -Duo nebs as needed Hypertension/hyperlipidemia -Continue home medications Obesity -Needs to lose weight. continue with present diet continue Heparin for DVT prophylaxis Patient transferred to ICU, condition guarded Attempted to contact patient's next of kin, Unable to leave message. Patient unable to provide who her family members are. (2) CHF (congestive heart failure) Qualifiers: Heart failure type: unspecified Heart failure chronicity: acute on chronic Qualified Code(s): I50.9 - Heart failure, unspecified (3) Cellulitis Qualifiers: Site of cellulitis: extremity Site of cellulitis of extremity: lower extremity Laterality: unspecified laterality Qualified Code(s): L03.119 - Cellulitis of unspecified part of limb (4) COPD (chronic obstructive pulmonary disease) Qualifiers: COPD type: unspecified COPD Qualified Code(s): J44.9 - Chronic obstructive pulmonary disease, unspecified (5) T2DM (type 2 diabetes mellitus) Qualifiers: Diabetes mellitus half-way insulin use: unspecified 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
[2017-10-17 13:48] LABS: Baso % (Auto) 0.3 % (0.0-2.0); Eos # (Auto) 0.1 th/mm3 (0.0-0.4); Eos % (Auto) 1.1 % (0.0-4.0); Hematocrit 30.6 % (35.0-46.0); Hemoglobin 9.2 gm/dL (11.6-15.3); Lymph # (Auto) 0.5 th/mm3 (1.0-4.8); Mean Corpuscular Hemoglobin 22.8 pg (27.0-34.0); Mean Corpuscular Volume 75.6 fL (80.0-100.0); Mean Platelet Volume 8.1 fL (7.0-11.0); Mono % (Auto) 10.1 % (0.0-8.0); Neut # (Auto) 8.4 th/mm3 (1.8-7.7); Neut % (Auto) 83.5 % (16.0-70.0); Platelet Count 316 th/mm3 (150-450); Red Blood Count 4.05 mil/mm3 (4.00-5.30); Red Cell Distribution Width 18.6 % (11.6-17.2); White Blood Count 10.1 th/mm3 (4.0-11.0)
[2017-10-17 13:53] LABS: Mean Corpuscular HGB Conc 30.1 % (32.0-36.0)
[2017-10-17 14:14] LABS: Alanine Aminotransferase 11 U/L (10-53); Albumin 2.5 g/dL (3.4-5.0); Alkaline Phosphatase 199 U/L (45-117); Anion Gap 8 meq/L (5-15); Aspartate Aminotransferase 21 U/L (15-37); Blood Urea Nitrogen 26 mg/dL (7-18); Calcium 8.7 mg/dL (8.5-10.1); Carbon Dioxide 28.4 meq/L (21.0-32.0); Chloride 105 meq/L (98-107); Glomerular Filtration Rate 38 mL/min (>89); Glucose,Random 84 mg/dL (74-106); Phosphorus 5.8 mg/dL (2.5-4.9); Potassium 4.9 meq/L (3.5-5.1); Sodium 141 meq/L (136-145); Total Protein 6.9 g/dL (6.4-8.2)
[2017-10-17] MEDS ORDERED: Etomidate Inj 40 MG/20 ML Vial IV.PUSH ONE (15:55)
[2017-10-17] MEDS ORDERED: Propofol Inj 500 MG/50 ML Vial ONE (15:55)
[2017-10-17] MEDS ORDERED: Etomidate Inj 20 MG/10 ML Ampul IV.PUSH ONE (16:15)
[2017-10-17] MEDS ORDERED: fentaNYL 10 mcg/mL Premix Drip 2,500 MCG/250 ML BAG IV.SIG PRN (16:25)
--- NOTE | 2017-10-17 16:36 | P.PNWCN ---
Wound Care Nurse Consult Description: Consult for Wound MAnagement of Bilateral LE RLE with ulcerated weeping wound. Chronic lymphedema per ARY Rodas Communicated with: MARIA VICTORIA Goins Recommendation: Every other day and PRN for saturation or dislodgement: 1. Cleanse bilateral lower extremities with wound cleanser. 2. Pat dry. 3. Cover open weeping areas with ABD pads. 4. Secure with libia and JAROD wrap. Additional information: Patient seen on 3 for bilateral lower extremity chronic venous stasis, lymphedema, weeping, and cobblestone appearance. Wound/Pressure Injury - Wound Left Leg Is This a Chronic Wound: Yes Requested from Provider a Wound Care Consult: Yes (ARY Gray) Wound Bed Appearance: [place], Red, Shiny Wound Bed Appearance: unroofed and roofed bullae, weeping cobblestone appearance, wet denuded areas from chronic venous stasis, dried serous exudate Surrounding Tissue Appearance: Bright Red, Edematous (pitting), Erythema, Taut, Weeping Surrounding Tissue Temperature: Warm Drainage Description: Serosanguinous Drainage Amount: Minimal Drainage Odor: Slight Odor Dressing Status: Open to Air Cleansing Solution: Saline Primary Dressing: Absorbant Pad Cover Dressing: JAROD Wound Dressing Change Date: 10/17/17 Right Leg Is This a Chronic Wound: Yes Requested from Provider a Wound Care Consult: Yes Wound Bed Appearance: [place], Red, Shiny Surrounding Tissue Appearance: Bright Red, Edematous (pitting), Erythema, Taut, Weeping Surrounding Tissue Temperature: Warm Drainage Description: Serosanguinous Drainage Amount: Scant Drainage Odor: Slight Odor Dressing Status: Open to Air Cleansing Solution: Saline Primary Dressing: Absorbant Pad Cover Dressing: JAROD Wound Dressing Change Date: 10/17/17 - Additional Information Bilateral lower legs and feet cleansed thoroughly. Shaving cream therapy completed. Legs were wrapped in ABD pads and secured with rolled gauze and JAROD wraps that may remain in place for 2 days unless soiled or dislodged.
--- NOTE | 2017-10-17 16:53 | XR ---
EXAM DATE: 10/17/2017 4:35 PM EDT AGE/SEX: 62 years / Female INDICATIONS: Post ET tube placement. CLINICAL DATA: This is the patient's subsequent encounter. Patient reports that signs and symptoms h ave been present for 1 day and indicates a pain score of Nonresponsive. MEDICAL/SURGICAL HISTORY: . Diabetes mellitus type II. Congestive heart failure. Hypercholester olemia. Coronary artery disease.Hypertension. COPD. . Cholecystectomy. Tonsillectomy. Coronary arter y stent. Pacemaker COMPARISON: [facility] [place] CHEST 1V SINGLE AP, 10/17/2017. . FINDINGS: Basilar predominant parenchymal consolidation persists slightly worse left base but otherwise not sig nificantly changed. A small pleural effusion may be developing on the left. I don't see a pneumothora x. Heart size stable, upper limits of normal. Cardiac pacer again noted. Patient is now intubated. Endotracheal tube tip is approximately 4.6 cm above the silverio. There is a nasogastric tube coursing into the stomach. CONCLUSION: 1. Appropriate position of the endotracheal tube and nasogastric tube. 2. Small effusion and modest worsening of consolidation at the left base. Otherwise bilateral airspa ce opacities are not significantly changed. Electronically signed by: Myles Dumont MD 10/17/2017 4:51 PM EDT
[2017-10-17 17:04] LABS: ABG Base Excess 0.7 mmol/L (-2-2); ABG PCO2 80 mmHg (38-42); ABG PO2 135 mmHg (61-120)
[2017-10-17] MEDS: Propofol 1000 mg/100 ml Inj 1,000 MG/100 ML BOTTLE IV.CONT PRN ×2 (17:18→21:26)
--- NOTE | 2017-10-17 17:35 | P.PCN ---
Date of procedure: 10/17/17 Pre-op diagnosis: Acute hypoxemic respiratory failure Post-op diagnosis: same Procedure: Emergency endotracheal intubation Patient hypoxemic, and getting bag and mask ventilation now. Patient was appropriately positioned and was administered etomidate 20 mg IV, Propofol 40 mg IV. My colleague had attempted intubation with C-MAC with 8.0 and 7.0 tubes, but airway was difficult. I attempted with C Mac initially but the camera was clogged with secretions. Because of rapid desaturation I entered the oropharynx with direct laryngoscope, obtained grade 2 view, and intubated with 7.0 ETT which was already loaded on Stylet. ET tube placement confirmed by directly visualizing the tube passing through the vocal cords, air entry equal bilaterally and, end-tidal CO2 color change. O2 saturation improved after intubation. Postprocedure chest x-ray is pending at this time Anesthesia: DARBY Surgeon: Elvis Bueno Estimated blood loss (mL): 0 Pathology: none sent Condition: critical Disposition: ICU
[2017-10-17 18:00] LABS: Calcium 8.4 mg/dL (8.5-10.1); Potassium 5.3 meq/L (3.5-5.1)
--- NOTE | 2017-10-17 18:23 | P.PNID ---
Subjective Remarks: in ICU On NC O2 both clx are positive for GPC no fever Antibiotics: vanco azactam Allergies/Adverse Reactions: Allergies codeine Allergy (Intermediate, Verified 10/14/17 18:32) rash penicillin G Allergy (Intermediate, Verified 10/14/17 18:32) RASH,FEVER, SEIZURE *MDRO Multi-Drug Resistant Organism Adverse Reaction (Unknown, Uncoded 09/16/17 20:28) Cleared 04/25/16 MRSA (leg wound) 04/2015 MRSA PCR screen NEGATIVE - 03/26/16 & 04/25/16 Cleared per Infection Control Objective Vital Signs 10/16/17 19:27 10/16/17 20:00 10/17/17 00:00 Temperature 98.2 F Pulse Rate 86 82 Respiratory Rate 18 22 Blood Pressure 124/76 132/66 Pulse Oximetry 100 99 10/17/17 04:00 10/17/17 07:15 10/17/17 08:00 Temperature 97.6 F 97.6 F Pulse Rate 82 83 81 Respiratory Rate 16 20 Blood Pressure 107/75 130/76 Pulse Oximetry 100 10/17/17 08:15 10/17/17 09:25 10/17/17 12:00 Temperature 98.5 F Pulse Rate 81 Respiratory Rate 17 Blood Pressure 110/69 Pulse Oximetry 97 96 100 10/17/17 14:00 10/17/17 16:00 10/17/17 17:45 Temperature 98.6 F Pulse Rate 76 78 77 Respiratory Rate 14 Blood Pressure 113/57 L Pulse Oximetry 93 L 10/17/17 17:58 10/17/17 18:00 Temperature Pulse Rate 77 Respiratory Rate 14 14 Blood Pressure Pulse Oximetry Intake & Output 10/16/17 10/17/17 10/17/17 18:59 06:59 18:59 Intake Total 50 / 50 670 / 670 735 / 735 Output Total 260 / 260 125 / 125 Balance 50 / 50 410 / 410 610 / 610 Weight 148.4 kg Intake: IV 50 / 50 350 / 350 615 / 615 Flexbumin 25% Inj 100 ML @ 60 100 / 100 100 / 100 mls/hr IV.SIG Q8HR GUICHO Rx#: [id number] Cleocin 900 mg/NS Premix 900 mg 50 / 50 In 50 ml @ 100 mls/hr IV.SIG Q8H GUICHO Rx#:[id number] Vancomycin Inj 1,000 MG In NS 250 / 250 Inj 250 ML @ 250 mls/hr IV.SIG ONCE ONE Rx#:[id number] Vancomycin Inj 1,500 MG In NS 515 / 515 Inj 500 ML @ 250 mls/hr IV.SIG Q24H [facility] Rx#:[id number] Oral 320 / 320 120 / 120 Output: Urine 260 / 260 Urine Amount (Catheter) 125 / 125 Indwelling Urethral Catheter 125 / 125 Other: # Voids 11 1 Date of Last Bowel Movement 10/13/17 10/13/17 Weight On Admission 145.15 kg 10/17/17 16:49 Blood - Peripheral Aerobic Blood Culture - Pending 10/17/17 16:49 Blood - Peripheral Anaerobic Blood Culture - Pending 10/17/17 16:54 Blood - Peripheral Aerobic Blood Culture - Pending 10/17/17 16:54 Blood - Peripheral Anaerobic Blood Culture - Pending 10/14/17 19:55 Blood - Peripheral Aerobic Blood Culture - Preliminary gram positive cocci 10/14/17 19:55 Blood - Peripheral Anaerobic Blood Culture - Preliminary No growth in 3 days 10/14/17 20:00 Blood - Peripheral Aerobic Blood Culture - Preliminary gram positive cocci 10/14/17 20:00 Blood - Peripheral Anaerobic Blood Culture - Preliminary No growth in 3 days 10/15/17 00:08 Abscess - Leg Gram Stain - Final 10/15/17 00:08 Abscess - Leg Wound Culture - Preliminary Staphylococcus aureus Pseudomonas species gram negative rods 10/14/17 19:59 Catheterized Urine Urine Culture - Final Lactobacillus species Lab - Hematology Results 10/16/17 10/17/17 13:00 12:37 WBC 8.2 10.1 RBC 4.58 4.05 Hgb 10.1 L 9.2 L Hct 35.2 30.6 L MCV 76.9 L 75.6 L MCH 22.1 L 22.8 L MCHC 28.7 L 30.1 L RDW 18.8 H 18.6 H Plt Count 370 316 MPV 8.0 8.1 Neut % (Auto) 83.5 H Lymph % (Auto) 5.0 L [place] % (Auto) 10.1 H Eos % (Auto) 1.1 Baso % (Auto) 0.3 Neut # (Auto) 8.4 H Lymph # (Auto) 0.5 L [place] # (Auto) 1.0 H Eos # (Auto) 0.1 Baso # (Auto) 0.0 WBC Differential . Differential Comment Auto diff final Lab - Chemistry Results 10/15/17 10/16/17 10/16/17 20:13 09:23 10:03 Sodium Potassium Chloride Carbon Dioxide Anion Gap BUN Creatinine Estimated GFR POC Glucose 211 H 54 L 79 Random Glucose Calcium Phosphorus Magnesium Total Bilirubin AST ALT Alkaline Phosphatase Total Protein Albumin 10/16/17 10/16/17 10/16/17 12:45 13:00 18:02 Sodium 139 Potassium 4.7 Chloride 106 Carbon Dioxide 29.0 Anion Gap 4 L BUN 23 H Creatinine 1.05 H Estimated GFR 53 L POC Glucose 84 105 Random Glucose 61 L D Calcium 8.2 L Phosphorus Magnesium Total Bilirubin AST ALT Alkaline Phosphatase Total Protein Albumin 10/17/17 10/17/17 10/17/17 07:59 09:00 12:16 Sodium Potassium Chloride Carbon Dioxide Anion Gap BUN Creatinine Estimated GFR POC Glucose 64 L 94 115 H Random Glucose Calcium Phosphorus Magnesium Total Bilirubin AST ALT Alkaline Phosphatase Total Protein Albumin 10/17/17 10/17/17 12:37 16:54 Sodium 141 139 Potassium 4.9 5.3 H Chloride 105 107 Carbon Dioxide 28.4 26.0 Anion Gap 8 6 BUN 26 H 27 H Creatinine 1.40 H 1.52 H Estimated GFR 38 L 35 L POC Glucose Random Glucose 84 96 Calcium 8.7 8.4 L Phosphorus 5.8 H Magnesium 2.0 Total Bilirubin 0.4 AST 21 ALT 11 Alkaline Phosphatase 199 H Total Protein 6.9 Albumin 2.5 L Imaging: ITS Impressions Chest X-Ray 10/17/17 16:17 CONCLUSION: 1. Appropriate position of the endotracheal tube and nasogastric tube. 2. Small effusion and modest worsening of consolidation at the left base. Otherwise bilateral airspace opacities are not significantly changed. Physical Exam: GENERAL: NAD SKIN: Warm and dry. edema erythema and draining wounds on BLE anasarca up to the chest HEAD: Atraumatic. Normocephalic. EYES: Pupils equal and round. No scleral icterus. No injection or drainage. ENT: No nasal bleeding or discharge. Mucous membranes pink and moist. NECK: Trachea midline. No JVD. CARDIOVASCULAR: Regular rate and rhythm. RESPIRATORY: No accessory muscle use. Clear to auscultation. Breath sounds equal bilaterally. GASTROINTESTINAL: Abdomen soft, non-tender, distended. Hepatic and splenic margins not palpable. Anasarca , tigjht edema of abdominal wall MUSCULOSKELETAL: Extremities without clubbing, cyanosis, + prominent tight 4+ edema. No obvious deformities. NEUROLOGICAL: lethargic. PSYCHIATRIC: unabl e to assess Assessment and Plan - Plan Morbid obesity chronic venostasis BLE cellulits and infected wounds gram posiitve bacteremia of unknown significance UA with too many sq epi cells to reliably inteprete cont vancomycin cont azactam fu ID/S on isolate for further rec's
[2017-10-17 19:04] LABS: ABG Base Excess 1.2 mmol/L (-2-2); ABG PCO2 66 mmHg (38-42); ABG PO2 246 mmHg (61-120)
[2017-10-17] MEDS: Budesonide-Formoterol 160/4.5 MCG 6 GM Inhaler INH SCH (21:52)
[2017-10-18] MEDS: Propofol 1000 mg/100 ml Inj 1,000 MG/100 ML BOTTLE IV.CONT PRN ×6 (00:52→22:47)
[2017-10-18 04:05] LABS: Hematocrit 33.6 % (35.0-46.0); Hemoglobin 9.9 gm/dL (11.6-15.3); Mean Corpuscular Hemoglobin 22.2 pg (27.0-34.0); Mean Corpuscular Volume 75.2 fL (80.0-100.0); Mean Platelet Volume 8.3 fL (7.0-11.0); Platelet Count 334 th/mm3 (150-450); Red Blood Count 4.47 mil/mm3 (4.00-5.30); Red Cell Distribution Width 19.1 % (11.6-17.2); White Blood Count 14.7 th/mm3 (4.0-11.0)
[2017-10-18 04:11] LABS: Mean Corpuscular HGB Conc 29.5 % (32.0-36.0)
[2017-10-18 04:19] LABS: Albumin 2.3 g/dL (3.4-5.0); Anion Gap 8 meq/L (5-15); Aspartate Aminotransferase 20 U/L (15-37); Blood Urea Nitrogen 30 mg/dL (7-18); Calcium 8.7 mg/dL (8.5-10.1); Carbon Dioxide 28.4 meq/L (21.0-32.0); Chloride 105 meq/L (98-107); Glomerular Filtration Rate 37 mL/min (>89); Glucose,Random 155 mg/dL (74-106); Magnesium 2.2 mg/dL (1.5-2.5); Potassium 5.4 meq/L (3.5-5.1); Sodium 141 meq/L (136-145)
[2017-10-18 04:20] LABS: Alanine Aminotransferase 12 U/L (10-53); Phosphorus 5.7 mg/dL (2.5-4.9)
[2017-10-18 04:22] LABS: Alkaline Phosphatase 212 U/L (45-117); Total Protein 7.1 g/dL (6.4-8.2)
[2017-10-18] MEDS: Insulin NovoLOG Aspart Correctional Sugar Inj SQ SCH ×4 (05:10→20:55)
[2017-10-18] MEDS: MethylPREDNISolone Sod Succinate Inj 125 MG/2 ML Vial IV.PUSH SCH (05:10)
[2017-10-18] MEDS: Heparin - SQ 10,000 UNITS/ML Vial SQ SCH ×3 (05:12→21:35)
[2017-10-18 05:18] LABS: Lymphocytes 3 % (9-44); Monocytes 1 % (0-8)
[2017-10-18 05:19] LABS: Platelet Estimate Normal (Normal); Platelet Morphology Normal (Normal)
[2017-10-18] MEDS: Nystatin 100,000 UNITS/GM Powder 15 GM Bottle TOPICAL SCH ×4 (08:03→20:46)
[2017-10-18] MEDS: Vancomycin Inj 1,500 MG in Sodium Chlor 0.9% Inj 500 ML IV.SIG SCH (08:03)
[2017-10-18] MEDS: Gabapentin 300 MG Capsule PO SCH ×3 (08:03→17:15)
[2017-10-18] MEDS: Lisinopril 20 MG Tablet PO SCH (08:03)
[2017-10-18] MEDS: Pantoprazole Sodium 20 MG DR Tablet PO SCH (08:04)
[2017-10-18] MEDS: Budesonide-Formoterol 160/4.5 MCG 6 GM Inhaler INH SCH ×2 (08:04→19:43)
--- NOTE | 2017-10-18 13:46 | P.PNCC ---
Subjective Subjective Remarks/Hospital Course: The patient is a 62-year-old female with past medical history of diabetes mellitus, COPD on 2 liters nasal cannula, obstructive sleep apnea on CPAP at home, however, she is not using it; hypertension, hyperlipidemia, CHF with pacemaker placement. She presented to [facility] ED with edema and swelling of lower extremity and shortness of breath. The patient was admitted under Hospitalist Service and was seen by Infectious Disease Service. She is currently being treated for a urinary tract infection, gram-positive bacteremia. In addition, she had a wound culture from her leg positive for Pseudomonas species and Staphylococcus aureus. Chest x-ray from this morning showed increased pulmonary vascularity. She had an ABG on 2 liters at 8:42 which showed acute hypercapnic respiratory acidosis with a pH of 7.24, CO2 72, PaO2 84, bicarbonate of 30, and saturation 93%. She was subsequently placed on BiPAP 14/8 with 30% FiO2. Due to lethargy and respiratory distress, Critical Care Medicine was consulted. When seen, the patient able to respond to questions appropriately; however, she dozes off and falls back to sleep. 10/18: Patient persists with severe lower body edema and associated cutaneous wounds. She has developed azotemia with earlier attempts at diuresis but at this point she will not resolve her skin wounds without sign fluid removal. We will attempt a continuous infusion Lasix drip to see if we can get a more gingerly diuresis and avoid the dramatic intravascular volume changes. She remains ventilator dependent. Objective Vital Signs / I&O: Vital Signs 10/17/17 14:00 10/17/17 16:00 10/17/17 17:45 Temperature 98.6 F Pulse Rate 76 78 77 Respiratory Rate 14 Blood Pressure 113/57 L Pulse Oximetry 93 L 10/17/17 17:58 10/17/17 18:00 10/17/17 19:00 Temperature Pulse Rate 77 80 Respiratory Rate 14 14 Blood Pressure Pulse Oximetry 10/17/17 19:54 10/17/17 19:56 10/17/17 20:00 Temperature 97.7 F Pulse Rate 87 77 Respiratory Rate 14 14 14 Blood Pressure 133/63 Pulse Oximetry 96 99 10/17/17 21:00 10/17/17 21:53 10/17/17 23:00 Temperature Pulse Rate 84 51 L 83 Respiratory Rate 14 Blood Pressure Pulse Oximetry 10/18/17 00:00 10/18/17 00:16 10/18/17 00:19 Temperature 97.7 F Pulse Rate 83 83 Respiratory Rate 14 14 14 Blood Pressure 146/67 H Pulse Oximetry 97 97 10/18/17 01:00 10/18/17 03:00 10/18/17 03:45 Temperature Pulse Rate 83 93 H 94 H Respiratory Rate 16 Blood Pressure Pulse Oximetry 10/18/17 04:00 10/18/17 04:18 10/18/17 05:00 Temperature 98.1 F Pulse Rate 83 87 Respiratory Rate 14 14 Blood Pressure 163/77 H Pulse Oximetry 100 99 10/18/17 07:00 10/18/17 08:00 10/18/17 08:45 Temperature 97.6 F Pulse Rate 86 83 90 Respiratory Rate 14 14 Blood Pressure 151/65 H Pulse Oximetry 100 99 10/18/17 09:00 10/18/17 11:00 10/18/17 12:00 Temperature 97.8 F Pulse Rate 84 86 81 Respiratory Rate 20 Blood Pressure 142/62 H Pulse Oximetry 100 Intake & Output 10/17/17 10/18/17 10/18/17 18:59 06:59 18:59 Intake Total 735 / 735 619.0 / 619.0 100 / 100 Output Total 125 / 125 1050 / 1050 Balance 610 / 610 -431.0 / -431.0 100 / 100 Weight 148.4 kg 146.6 kg Intake: IV 615 / 615 444.0 / 444.0 100 / 100 Diprivan 1000 mg/100 ml Inj 1, 344.0 / 344.0 000 mg In 100 ml @ 5 MCG/KG/MIN 4.452 mls/hr IV.CONT TITRATE PRN Rx#:[id number] Flexbumin 25% Inj 100 ML @ 60 100 / 100 mls/hr IV.SIG Q8HR GUICHO Rx#: [id number] Azactam Inj 1,000 MG In NS Inj 100 / 100 100 / 100 100 ML @ 200 mls/hr IV.SIG Q8H GUICHO Rx#:[id number] Vancomycin Inj 1,500 MG In NS 515 / 515 Inj 500 ML @ 250 mls/hr IV.SIG Q24H GUICHO Rx#:[id number] Oral 120 / 120 120 / 120 Other 55 / 55 Bladder Irrigation Fluid - 0 / 0 Amount Retained Indwelling Urethral Catheter 0 / 0 Output: Urine Amount (Catheter) 125 / 125 850 / 850 Indwelling Urethral Catheter 125 / 125 850 / 850 Gastric Drainage 200 / 200 Oral Orogastric Tube 200 / 200 Other: Bladder Irrigation Fluid - Amount Instilled Indwelling Urethral Catheter 40 Bladder Irrigation Fluid - Amount Drained Indwelling Urethral Catheter 40 Date of Last Bowel Movement 10/13/17 10/13/17 Weight On Admission 145.15 kg Result Diagrams: 10/18/17 03:40 10/18/17 03:40 Objective Remarks: PHYSICAL EXAMINATION: GENERAL: A 62-year-old female, sedated. HEAD: Atraumatic, normocephalic. Pupils are equal, round, reactive to light and accommodation. Extraocular muscles intact. Conjunctivae pink. Nonicteric sclerae. Oral mucosa within normal. NECK: Orally intubated. Supple. Trachea in the midline. CARDIOVASCULAR: Regular rate and rhythm. Normal S1, S2. No murmurs, rubs or gallops noted. PULMONARY: Bilateral equal air entry, diminished in the bases. No wheezes. ABDOMEN: Soft, obese, nontender, nondistended, positive bowel sounds. [place] edema involving the lower abdomen EXTREMITIES: No cyanosis, clubbing, 3+ edema. NEUROLOGIC: Wiggles fingers and toes spontaneously. Opens eyes to loud voice. Assessment and Plan - Assessment and Plan Plan: IMPRESSION: 1. Acute hypercapnic and hypoxemic respiratory failure. 2. Chronic obstructive pulmonary disease exacerbation. 3. Obstructive sleep apnea/morbid obesity. 4. Gram-positive bacteremia. 5. Urinary tract infection. 6. Bilateral lower extremity cellulitis. 7. Anemia. 8. History of congestive heart failure. 9. History of hypertension. 10. History of diabetes mellitus. 11. Peripheral arterial disease. 12. Hyperlipidemia. 13. Fluid overload. RECOMMENDATIONS: 1. Monitor neuro status closely and minimize any sedatives. 2. PRVC ventilatory mode 3. Bronchodilators. We will place on DuoNeb every 4 hours and every 2 hours as needed for shortness of breath. We will add Symbicort 160/4.5 two puffs twice daily. 4. Taper Solu-Medrol. 5. Discontinue lisinopril due to problems with hyperkalemia. 6. We will obtain a 2-D echo to evaluate ventricular function. 7. Monitor renal function, I's and O's and avoid nephrotoxins. Electrolyte replacement per protocol. Start continuous infusion loop diuretic 8. Nasogastric tube for GI decompression. 9. Continue with antibiotics per ID. She is currently on vancomycin. Monitor for signs of infection, which include fever and WBC. Blood culture from 10/14/2017 showed gram-positive cocci in 2/4 bottles. Urine culture from 10/14/2017 showed Lactobacillus species. Wound culture from lower extremity showed Staphylococcus aureus and Pseudomonas species. 10. Sliding scale insulin with Accu-Cheks for glycemic control. 11. Monitor CBC. 12. Gastrointestinal prophylaxis with Protonix and deep vein thrombosis prophylaxis with heparin subcutaneously. 13. Further recommendations will depend on the hospital course. Overall impression: This woman is critically ill and we are unable to wean her from mechanical ventilation. She has profound fluid overload with diffuse bilateral lung infiltrates and pulmonary venous congestion. There is tense gross edema involving the lower body and extremities. I anticipate great problems and eventually weaning her from the ventilator. Critical care time 40 minutes
[2017-10-18] MEDS ORDERED: Sodium Phosphate Inj 30 MMOL in Sodium Chlor 0.9% Inj 250 ML IV.SIG PRN (14:06)
[2017-10-18] MEDS ORDERED: Potassium Chlor 40 mEq Premix 40 MEQ/100 ML PIGGYBACK IV.SIG PRN ×2 (14:06)
[2017-10-18] MEDS ORDERED: Magnesium Oxide 400 MG Tablet PO PRN (14:06)
[2017-10-18] MEDS ORDERED: Magnesium Sulfate Inj 2 GM in Sodium Chlor 0.9% Inj 96 ML IV.SIG PRN (14:06)
[2017-10-18] MEDS ORDERED: Potassium Phosphate Inj 30 MMOL in Sodium Chlor 0.9% Inj 250 ML IV.SIG PRN (14:06)
[2017-10-18] MEDS ORDERED: Potassium Phosphate 500 MG Soluble Tablet PO PRN ×2 (14:06)
[2017-10-18] MEDS ORDERED: Magnesium Sulfate Inj 4 GM in Sodium Chlor 0.9% Inj 92 ML IV.SIG PRN (14:06)
[2017-10-18] MEDS ORDERED: Potassium Chloride 25 MEQ Effervescent Tablet PO PRN (14:06)
[2017-10-18] MEDS ORDERED: Potassium Chlor 20 mEq Premix 20 MEQ/100 ML PIGGYBACK IV.SIG PRN ×2 (14:06)
[2017-10-18] MEDS: MethylPREDNISolone Sod Succinate Inj 40 MG/ML Vial IV.PUSH SCH ×2 (14:15→21:35)
[2017-10-18] MEDS: Furosemide Inj 100 MG in Sodium Chlor 0.9% Inj 90 ML IV.CONT SCH (14:36)
[2017-10-18] MEDS: Oral Hygiene Kit OROPHARYNG SCH (16:24)
[2017-10-18] MEDS: Chlorhexidine 0.12% Oral Kit 15 ML UDC OROPHARYNG SCH (20:46)
--- NOTE | 2017-10-18 20:46 | P.PNID ---
Subjective Remarks: On vent intubated On diuretiocs Antibiotics: vanco azactam Allergies/Adverse Reactions: Allergies codeine Allergy (Intermediate, Verified 10/14/17 18:32) rash penicillin G Allergy (Intermediate, Verified 10/14/17 18:32) RASH,FEVER, SEIZURE *MDRO Multi-Drug Resistant Organism Adverse Reaction (Unknown, Uncoded 09/16/17 20:28) Cleared 04/25/16 MRSA (leg wound) 04/2015 MRSA PCR screen NEGATIVE - 03/26/16 & 04/25/16 Cleared per Infection Control Objective Vital Signs 10/17/17 21:00 10/17/17 21:53 10/17/17 23:00 Temperature Pulse Rate 84 51 L 83 Respiratory Rate 14 Blood Pressure Pulse Oximetry 10/18/17 00:00 10/18/17 00:16 10/18/17 00:19 Temperature 97.7 F Pulse Rate 83 83 Respiratory Rate 14 14 14 Blood Pressure 146/67 H Pulse Oximetry 97 97 10/18/17 01:00 10/18/17 03:00 10/18/17 03:45 Temperature Pulse Rate 83 93 H 94 H Respiratory Rate 16 Blood Pressure Pulse Oximetry 10/18/17 04:00 10/18/17 04:18 10/18/17 05:00 Temperature 98.1 F Pulse Rate 83 87 Respiratory Rate 14 14 Blood Pressure 163/77 H Pulse Oximetry 100 99 10/18/17 07:00 10/18/17 08:00 10/18/17 08:45 Temperature 97.6 F Pulse Rate 86 83 90 Respiratory Rate 14 14 Blood Pressure 151/65 H Pulse Oximetry 100 99 10/18/17 09:00 10/18/17 11:00 10/18/17 12:00 Temperature 97.8 F Pulse Rate 84 86 81 Respiratory Rate 20 Blood Pressure 142/62 H Pulse Oximetry 100 10/18/17 13:00 10/18/17 15:00 10/18/17 15:51 Temperature Pulse Rate 79 81 75 Respiratory Rate 18 Blood Pressure Pulse Oximetry 99 10/18/17 16:00 10/18/17 17:00 10/18/17 19:44 Temperature 97.9 F Pulse Rate 80 81 96 H Respiratory Rate 20 24 Blood Pressure 131/78 Pulse Oximetry 98 99 Intake & Output 10/18/17 10/18/17 10/19/17 06:59 18:59 06:59 Intake Total 619.0 / 619.0 815 / 815 Output Total 1050 / 1050 1225 / 1225 Balance -431.0 / -431.0 -410 / -410 Weight 146.6 kg Intake: IV 444.0 / 444.0 815 / 815 Diprivan 1000 mg/100 ml Inj 1, 344.0 / 344.0 200 / 200 000 mg In 100 ml @ 5 MCG/KG/MIN 4.452 mls/hr IV.CONT TITRATE PRN Rx#:[id number] Azactam Inj 1,000 MG In NS Inj 100 / 100 100 / 100 100 ML @ 200 mls/hr IV.SIG Q8H GUICHO Rx#:[id number] Vancomycin Inj 1,500 MG In NS 515 / 515 Inj 500 ML @ 250 mls/hr IV.SIG Q24H GUICHO Rx#:[id number] Oral 120 / 120 Other 55 / 55 Output: Urine Amount (Catheter) 850 / 850 875 / 875 Indwelling Urethral Catheter 850 / 850 875 / 875 Gastric Drainage 200 / 200 350 / 350 Oral Orogastric Tube 200 / 200 350 / 350 Other: Date of Last Bowel Movement 10/13/17 10/13/17 10/17/17 16:49 Blood - Peripheral Aerobic Blood Culture - Preliminary No growth in 1 day 10/17/17 16:49 Blood - Peripheral Anaerobic Blood Culture - Preliminary No growth in 1 day 10/17/17 16:54 Blood - Peripheral Aerobic Blood Culture - Preliminary No growth in 1 day 10/17/17 16:54 Blood - Peripheral Anaerobic Blood Culture - Preliminary No growth in 1 day 10/14/17 19:55 Blood - Peripheral Aerobic Blood Culture - Preliminary gram positive cocci 10/14/17 19:55 Blood - Peripheral Anaerobic Blood Culture - Preliminary No growth in 4 days 10/14/17 20:00 Blood - Peripheral Aerobic Blood Culture - Preliminary gram positive cocci 10/14/17 20:00 Blood - Peripheral Anaerobic Blood Culture - Preliminary No growth in 4 days 10/18/17 04:03 Sputum - Endotracheal Gram Stain - Final 10/18/17 04:03 Sputum - Endotracheal Sputum Culture - Pending 10/15/17 00:08 Abscess - Leg Gram Stain - Final 10/15/17 00:08 Abscess - Leg Wound Culture - Final Staphylococcus aureus Pseudomonas aeruginosa Klebsiella oxytoca 10/14/17 19:59 Catheterized Urine Urine Culture - Final Lactobacillus species Lab - Hematology Results 10/17/17 10/18/17 12:37 03:40 WBC 10.1 14.7 H RBC 4.05 4.47 Hgb 9.2 L 9.9 L Hct 30.6 L 33.6 L MCV 75.6 L 75.2 L MCH 22.8 L 22.2 L MCHC 30.1 L 29.5 L RDW 18.6 H 19.1 H Plt Count 316 334 MPV 8.1 8.3 Prelim Diff (Auto) Manual diff required Neut % (Auto) 83.5 H Lymph % (Auto) 5.0 L [place] % (Auto) 10.1 H Eos % (Auto) 1.1 Baso % (Auto) 0.3 Neut # (Auto) 8.4 H Lymph # (Auto) 0.5 L [place] # (Auto) 1.0 H Eos # (Auto) 0.1 Baso # (Auto) 0.0 WBC Differential . Manual diff final Seg Neuts % (Manual) 96 H Lymphocytes % (Manual) 3 L Monocytes % (Manual) 1 Abs Neuts (Manual) 14.1 H Differential Comment Auto diff final . Platelet Estimate Normal Platelet Morphology Normal Lab - Chemistry Results 10/17/17 10/17/17 10/17/17 07:59 09:00 12:16 Sodium Potassium Chloride Carbon Dioxide Anion Gap BUN Creatinine Estimated GFR POC Glucose 64 L 94 115 H Random Glucose Calcium Phosphorus Magnesium Total Bilirubin AST ALT Alkaline Phosphatase Total Protein Albumin 10/17/17 10/17/17 10/17/17 12:37 16:54 22:20 Sodium 141 139 Potassium 4.9 5.3 H Chloride 105 107 Carbon Dioxide 28.4 26.0 Anion Gap 8 6 BUN 26 H 27 H Creatinine 1.40 H 1.52 H Estimated GFR 38 L 35 L POC Glucose 239 H Random Glucose 84 96 Calcium 8.7 8.4 L Phosphorus 5.8 H Magnesium 2.0 Total Bilirubin 0.4 AST 21 ALT 11 Alkaline Phosphatase 199 H Total Protein 6.9 Albumin 2.5 L 10/17/17 10/18/17 10/18/17 22:27 03:40 04:57 Sodium 141 Potassium 5.4 H Chloride 105 Carbon Dioxide 28.4 Anion Gap 8 BUN 30 H Creatinine 1.44 H Estimated GFR 37 L POC Glucose 147 H 172 H Random Glucose 155 H Calcium 8.7 Phosphorus 5.7 H Magnesium 2.2 Total Bilirubin 0.4 AST 20 ALT 12 Alkaline Phosphatase 212 H Total Protein 7.1 Albumin 2.3 L 10/18/17 12:40 Sodium Potassium Chloride Carbon Dioxide Anion Gap BUN Creatinine Estimated GFR POC Glucose 144 H Random Glucose Calcium Phosphorus Magnesium Total Bilirubin AST ALT Alkaline Phosphatase Total Protein Albumin Imaging: ITS Impressions Chest X-Ray 10/17/17 16:17 CONCLUSION: 1. Appropriate position of the endotracheal tube and nasogastric tube. 2. Small effusion and modest worsening of consolidation at the left base. Otherwise bilateral airspace opacities are not significantly changed. Physical Exam: GENERAL: Sedated intubated on vent SKIN: Warm and dry. edema erythema and draining wounds on BLE anasarca up to the chest HEAD: Atraumatic. Normocephalic. EYES: Pupils equal and round. No scleral icterus. No injection or drainage. ENT: No nasal bleeding or discharge. Mucous membranes pink and moist. NECK: Trachea midline. No JVD. CARDIOVASCULAR: Regular rate and rhythm. RESPIRATORY: No accessory muscle use. Clear to auscultation. Breath sounds equal bilaterally. GASTROINTESTINAL: Abdomen soft, non-tender, distended. Hepatic and splenic margins not palpable. Anasarca , tigjht edema of abdominal wall MUSCULOSKELETAL: Extremities without clubbing, cyanosis, + prominent tight 4+ edema. No obvious deformities. NEUROLOGICAL: sedated PSYCHIATRIC: unabl e to assess Assessment and Plan - Plan Morbid obesity chronic venostasis BLE cellulits and infected wounds gram posiitve bacteremia of unknown significance - still no ID UA with too many sq epi cells to reliably inteprete cont vancomycin cont azactam fu ID/S on isolate for further rec's fu repeat BC
[2017-10-19] MEDS: Furosemide Inj 100 MG in Sodium Chlor 0.9% Inj 90 ML IV.CONT SCH ×4 (00:39→21:36)
[2017-10-19] MEDS: Propofol 1000 mg/100 ml Inj 1,000 MG/100 ML BOTTLE IV.CONT PRN ×8 (02:59→23:31)
[2017-10-19] MEDS: Insulin NovoLOG Aspart Correctional Sugar Inj SQ SCH ×4 (03:21→20:26)
[2017-10-19] MEDS: Oral Hygiene Kit OROPHARYNG SCH ×5 (03:23→23:54)
[2017-10-19] MEDS: Heparin - SQ 10,000 UNITS/ML Vial SQ SCH ×3 (05:27→21:32)
[2017-10-19] MEDS: MethylPREDNISolone Sod Succinate Inj 40 MG/ML Vial IV.PUSH SCH ×3 (05:28→21:32)
[2017-10-19 07:12] LABS: Albumin 1.9 g/dL (3.4-5.0); Anion Gap 8 meq/L (5-15); Aspartate Aminotransferase 16 U/L (15-37); Blood Urea Nitrogen 40 mg/dL (7-18); Calcium 8.3 mg/dL (8.5-10.1); Carbon Dioxide 28.2 meq/L (21.0-32.0); Chloride 105 meq/L (98-107); Glomerular Filtration Rate 47 mL/min (>89); Glucose,Random 163 mg/dL (74-106); Magnesium 2.2 mg/dL (1.5-2.5); Sodium 141 meq/L (136-145)
[2017-10-19 07:18] LABS: Alanine Aminotransferase 8 U/L (10-53); Alkaline Phosphatase 179 U/L (45-117); Phosphorus 4.9 mg/dL (2.5-4.9); Total Protein 6.4 g/dL (6.4-8.2)
[2017-10-19] MEDS: Budesonide-Formoterol 160/4.5 MCG 6 GM Inhaler INH SCH ×2 (07:30→19:47)
[2017-10-19] MEDS: Gabapentin 300 MG Capsule PO SCH ×3 (08:14→17:09)
[2017-10-19] MEDS: Chlorhexidine 0.12% Oral Kit 15 ML UDC OROPHARYNG SCH ×2 (08:15→20:26)
[2017-10-19] MEDS: Vancomycin Inj 1,500 MG in Sodium Chlor 0.9% Inj 500 ML IV.SIG SCH (08:16)
[2017-10-19] MEDS ORDERED: Pharmacy Ordered Lab Info OTHER ONE (08:45)
--- NOTE | 2017-10-19 10:25 | P.PNCC ---
Subjective Subjective Remarks/Hospital Course: The patient is a 62-year-old female with past medical history of diabetes mellitus, COPD on 2 liters nasal cannula, obstructive sleep apnea on CPAP at home, however, she is not using it; hypertension, hyperlipidemia, CHF with pacemaker placement. She presented to [facility] ED with edema and swelling of lower extremity and shortness of breath. The patient was admitted under Hospitalist Service and was seen by Infectious Disease Service. She is currently being treated for a urinary tract infection, gram-positive bacteremia. In addition, she had a wound culture from her leg positive for Pseudomonas species and Staphylococcus aureus. Chest x-ray from this morning showed increased pulmonary vascularity. She had an ABG on 2 liters at 8:42 which showed acute hypercapnic respiratory acidosis with a pH of 7.24, CO2 72, PaO2 84, bicarbonate of 30, and saturation 93%. She was subsequently placed on BiPAP 14/8 with 30% FiO2. Due to lethargy and respiratory distress, Critical Care Medicine was consulted. When seen, the patient able to respond to questions appropriately; however, she dozes off and falls back to sleep. 10/18: Patient persists with severe lower body edema and associated cutaneous wounds. She has developed azotemia with earlier attempts at diuresis but at this point she will not resolve her skin wounds without sign fluid removal. We will attempt a continuous infusion Lasix drip to see if we can get a more gingerly diuresis and avoid the dramatic intravascular volume changes. She remains ventilator dependent. 10/19: We have finally shifted into predictable negative fluid balance. Renal function remains acceptable despite very aggressive diuretic therapy. The next few days will tell us if this is largely extravascular water or there is a component of lymphedema. Objective Vital Signs / I&O: Vital Signs 10/18/17 11:00 10/18/17 12:00 10/18/17 13:00 Temperature 97.8 F Pulse Rate 86 81 79 Respiratory Rate 20 Blood Pressure 142/62 H Pulse Oximetry 100 10/18/17 15:00 10/18/17 15:51 10/18/17 16:00 Temperature 97.9 F Pulse Rate 81 75 80 Respiratory Rate 18 20 Blood Pressure 131/78 Pulse Oximetry 99 98 10/18/17 17:00 10/18/17 19:00 10/18/17 19:44 Temperature Pulse Rate 81 92 H 96 H Respiratory Rate 24 Blood Pressure Pulse Oximetry 99 10/18/17 20:00 10/18/17 21:00 10/18/17 23:00 Temperature 97.8 F Pulse Rate 92 H 90 88 Respiratory Rate 22 Blood Pressure 133/63 Pulse Oximetry 100 10/18/17 23:13 10/19/17 00:00 10/19/17 01:00 Temperature Pulse Rate 89 90 94 H Respiratory Rate 22 22 Blood Pressure 167/74 H Pulse Oximetry 100 100 10/19/17 03:00 10/19/17 04:00 10/19/17 04:26 Temperature 98.4 F Pulse Rate 100 H 97 H 96 H Respiratory Rate 23 24 Blood Pressure 158/85 H Pulse Oximetry 100 100 10/19/17 05:00 10/19/17 07:32 10/19/17 10:05 Temperature Pulse Rate 96 H 93 H Respiratory Rate 23 23 Blood Pressure Pulse Oximetry 100 99 Intake & Output 10/18/17 10/19/17 10/19/17 18:59 06:59 18:59 Intake Total 815 / 815 500 / 500 Output Total 1225 / 1225 1900 / 1900 Balance -410 / -410 -1400 / -1400 Weight 144 kg Intake: IV 815 / 815 500 / 500 Lasix Inj 100 MG In NS Inj 90 100 / 100 ML @ 10 mls/hr IV.CONT .Q10H GUICHO Rx#:[id number] Diprivan 1000 mg/100 ml Inj 1, 200 / 200 300 / 300 000 mg In 100 ml @ 5 MCG/KG/MIN 4.452 mls/hr IV.CONT TITRATE PRN Rx#:[id number] Azactam Inj 1,000 MG In NS Inj 100 / 100 100 / 100 100 ML @ 200 mls/hr IV.SIG Q8H GUICHO Rx#:[id number] Vancomycin Inj 1,500 MG In NS 515 / 515 Inj 500 ML @ 250 mls/hr IV.SIG Q24H GUICHO Rx#:[id number] Output: Urine Amount (Catheter) 875 / 875 1650 / 1650 Indwelling Urethral Catheter 875 / 875 1650 / 1650 Gastric Drainage 350 / 350 250 / 250 Oral Orogastric Tube 350 / 350 250 / 250 Other: Date of Last Bowel Movement 10/13/17 10/13/17 # Bowel Movements 0 Result Diagrams: 10/18/17 03:40 10/19/17 06:11 Objective Remarks: PHYSICAL EXAMINATION: GENERAL: A 62-year-old female, sedated. HEAD: Atraumatic, normocephalic. Pupils are equal, round, reactive to light and accommodation. Extraocular muscles intact. Conjunctivae pink. Nonicteric sclerae. Oral mucosa within normal. NECK: Orally intubated. Supple. Trachea in the midline. CARDIOVASCULAR: Regular rate and rhythm. Normal S1, S2. No murmurs, rubs or gallops noted. PULMONARY: Bilateral equal air entry, diminished in the bases. No wheezes. ABDOMEN: Soft, obese, nontender, nondistended, positive bowel sounds. [place] edema involving the lower abdomen EXTREMITIES: No cyanosis, clubbing, 3+ edema. NEUROLOGIC: Wiggles fingers and toes spontaneously. Opens eyes to loud voice. Assessment and Plan - Assessment and Plan Plan: IMPRESSION: 1. Acute hypercapnic and hypoxemic respiratory failure. 2. Chronic obstructive pulmonary disease exacerbation. 3. Obstructive sleep apnea/morbid obesity. 4. Gram-positive bacteremia. 5. Urinary tract infection. 6. Bilateral lower extremity cellulitis. 7. Anemia. 8. History of congestive heart failure. 9. History of hypertension. 10. History of diabetes mellitus. 11. Peripheral arterial disease. 12. Hyperlipidemia. 13. Fluid overload. RECOMMENDATIONS: 1. Monitor neuro status closely and minimize any sedatives. 2. PRVC ventilatory mode 3. Bronchodilators. We will place on DuoNeb every 4 hours and every 2 hours as needed for shortness of breath. We will add Symbicort 160/4.5 two puffs twice daily. 4. Taper Solu-Medrol. 5. Discontinue lisinopril due to problems with hyperkalemia. 6. We will obtain a 2-D echo to evaluate ventricular function. 7. Monitor renal function, I's and O's and avoid nephrotoxins. Electrolyte replacement per protocol. Start continuous infusion loop diuretic 8. Nasogastric tube for GI decompression. Start tube feeds. Glucerna 1.5. 9. Continue with antibiotics per ID. She is currently on vancomycin. Monitor for signs of infection, which include fever and WBC. Blood culture from 10/14/2017 showed gram-positive cocci in 2/4 bottles. Urine culture from 10/14/2017 showed Lactobacillus species. Wound culture from lower extremity showed Staphylococcus aureus and Pseudomonas species. 10. Sliding scale insulin with Accu-Cheks for glycemic control. 11. Monitor CBC. 12. Gastrointestinal prophylaxis with Protonix and deep vein thrombosis prophylaxis with heparin subcutaneously. 13. Further recommendations will depend on the hospital course. Overall impression: This woman is critically ill and we are unable to wean her from mechanical ventilation. She has profound fluid overload with diffuse bilateral lung infiltrates and pulmonary venous congestion. There is tense gross edema involving the lower body and extremities. I anticipate great problems weaning her from the ventilator. Critical care time 42 minutes
[2017-10-19] MEDS: Pantoprazole Sodium 20 MG DR Tablet PO SCH (11:15)
[2017-10-19] MEDS: Nystatin 100,000 UNITS/GM Powder 15 GM Bottle TOPICAL SCH ×4 (11:15→20:25)
[2017-10-20] MEDS: Insulin NovoLOG Aspart Correctional Sugar Inj SQ SCH ×4 (01:28→21:03)
[2017-10-20] MEDS: Propofol 1000 mg/100 ml Inj 1,000 MG/100 ML BOTTLE IV.CONT PRN ×7 (02:20→23:17)
[2017-10-20] MEDS: Furosemide Inj 100 MG in Sodium Chlor 0.9% Inj 90 ML IV.CONT SCH ×3 (03:10→22:16)
[2017-10-20] MEDS: Oral Hygiene Kit OROPHARYNG SCH ×3 (03:17→17:05)
[2017-10-20] MEDS: MethylPREDNISolone Sod Succinate Inj 40 MG/ML Vial IV.PUSH SCH ×3 (05:15→21:05)
[2017-10-20] MEDS: Heparin - SQ 10,000 UNITS/ML Vial SQ SCH ×3 (05:15→21:05)
[2017-10-20 06:52] LABS: Calcium 8.6 mg/dL (8.5-10.1); Carbon Dioxide 30.4 meq/L (21.0-32.0); Potassium 4.7 meq/L (3.5-5.1)
[2017-10-20] MEDS: Budesonide-Formoterol 160/4.5 MCG 6 GM Inhaler INH SCH ×2 (07:28→20:03)
[2017-10-20] MEDS: Pantoprazole Sodium 20 MG DR Tablet PO SCH (08:25)
[2017-10-20] MEDS: Gabapentin 300 MG Capsule PO SCH ×3 (08:26→17:13)
[2017-10-20] MEDS: Nystatin 100,000 UNITS/GM Powder 15 GM Bottle TOPICAL SCH ×4 (08:29→21:04)
[2017-10-20] MEDS: Chlorhexidine 0.12% Oral Kit 15 ML UDC OROPHARYNG SCH ×2 (08:29→21:03)
--- NOTE | 2017-10-20 09:36 | P.PNCC ---
Subjective Subjective Remarks/Hospital Course: The patient is a 62-year-old female with past medical history of diabetes mellitus, COPD on 2 liters nasal cannula, obstructive sleep apnea on CPAP at home, however, she is not using it; hypertension, hyperlipidemia, CHF with pacemaker placement. She presented to [facility] ED with edema and swelling of lower extremity and shortness of breath. The patient was admitted under Hospitalist Service and was seen by Infectious Disease Service. She is currently being treated for a urinary tract infection, gram-positive bacteremia. In addition, she had a wound culture from her leg positive for Pseudomonas species and Staphylococcus aureus. Chest x-ray from this morning showed increased pulmonary vascularity. She had an ABG on 2 liters at 8:42 which showed acute hypercapnic respiratory acidosis with a pH of 7.24, CO2 72, PaO2 84, bicarbonate of 30, and saturation 93%. She was subsequently placed on BiPAP 14/8 with 30% FiO2. Due to lethargy and respiratory distress, Critical Care Medicine was consulted. When seen, the patient able to respond to questions appropriately; however, she dozes off and falls back to sleep. 10/18: Patient persists with severe lower body edema and associated cutaneous wounds. She has developed azotemia with earlier attempts at diuresis but at this point she will not resolve her skin wounds without sign fluid removal. We will attempt a continuous infusion Lasix drip to see if we can get a more gingerly diuresis and avoid the dramatic intravascular volume changes. She remains ventilator dependent. 10/19: We have finally shifted into predictable negative fluid balance. Renal function remains acceptable despite very aggressive diuretic therapy. The next few days will tell us if this is largely extravascular water or there is a component of lymphedema. 10/20: Continued 3 L diuresis daily. Creatinine has declined to 1.0, BU and acceptable at 44. Will add intermittent albumin infusion and continue loop diuretic continuous infusion. Persistent hypertension will require additional oral agents. Convert tube feeds to Glucerna 1.5 and add Levemir twice daily as a basal source of insulin. Objective Vital Signs / I&O: Vital Signs 10/19/17 10:05 10/19/17 11:00 10/19/17 11:19 Temperature Pulse Rate 93 H 90 Respiratory Rate 23 22 Blood Pressure Pulse Oximetry 99 10/19/17 12:00 10/19/17 13:00 10/19/17 13:28 Temperature 97.8 F Pulse Rate 93 H 59 L Respiratory Rate 18 18 Blood Pressure 119/93 H Pulse Oximetry 100 97 10/19/17 15:00 10/19/17 15:04 10/19/17 16:00 Temperature 97.6 F Pulse Rate 88 84 88 Respiratory Rate 22 18 Blood Pressure 132/91 H Pulse Oximetry 100 10/19/17 16:16 10/19/17 17:00 10/19/17 19:00 Temperature Pulse Rate 89 89 Respiratory Rate 23 Blood Pressure Pulse Oximetry 100 10/19/17 19:45 10/19/17 19:48 10/19/17 19:56 Temperature Pulse Rate 86 91 H Respiratory Rate 23 21 22 Blood Pressure Pulse Oximetry 100 10/19/17 20:00 10/19/17 21:00 10/19/17 22:33 Temperature 97.6 F Pulse Rate 88 81 Respiratory Rate 23 18 Blood Pressure 160/77 H Pulse Oximetry 100 99 10/19/17 23:00 10/19/17 23:29 10/20/17 00:00 Temperature 98.2 F Pulse Rate 90 87 85 Respiratory Rate 21 22 Blood Pressure 161/85 H Pulse Oximetry 100 10/20/17 01:00 10/20/17 01:10 10/20/17 03:00 Temperature Pulse Rate 81 85 Respiratory Rate 18 Blood Pressure Pulse Oximetry 99 10/20/17 03:19 10/20/17 04:00 10/20/17 04:13 Temperature 97.8 F Pulse Rate 89 91 H Respiratory Rate 22 23 20 Blood Pressure 140/79 Pulse Oximetry 100 100 10/20/17 05:00 10/20/17 07:00 Temperature Pulse Rate 91 H 85 Respiratory Rate 24 Blood Pressure Pulse Oximetry 100 Intake & Output 10/19/17 10/20/17 10/20/17 18:59 06:59 18:59 Intake Total 1205 / 1205 500 / 500 100 / 100 Output Total 3450 / 3450 3325 / 3325 Balance -2245 / -2245 -2825 / -2825 100 / 100 Weight 140 kg Intake: IV 1205 / 1205 500 / 500 100 / 100 Lasix Inj 100 MG In NS Inj 90 190 / 190 100 / 100 ML @ 10 mls/hr IV.CONT .Q10H [facility] Rx#:[id number] Diprivan 1000 mg/100 ml Inj 1, 300 / 300 400 / 400 100 / 100 000 mg In 100 ml @ 5 MCG/KG/MIN 4.452 mls/hr IV.CONT TITRATE PRN Rx#:[id number] Azactam Inj 1,000 MG In NS Inj 200 / 200 100 ML @ 200 mls/hr IV.SIG Q8H [facility] Rx#:[id number] Output: Urine Amount (Catheter) 3250 / 3250 3075 / 3075 Indwelling Urethral Catheter 3250 / 3250 3075 / 3075 Gastric Drainage 200 / 200 250 / 250 Oral Orogastric Tube 200 / 200 250 / 250 Other: Date of Last Bowel Movement 10/13/17 10/13/17 # Bowel Movements 0 0 Result Diagrams: 10/18/17 03:40 10/20/17 06:14 Objective Remarks: PHYSICAL EXAMINATION: GENERAL: A 62-year-old female, sedated. HEAD: Atraumatic, normocephalic. Pupils are equal, round, reactive to light and accommodation. Extraocular muscles intact. Conjunctivae pink. Nonicteric sclerae. Oral mucosa within normal. NECK: Orally intubated. Supple. Trachea in the midline. CARDIOVASCULAR: Regular rate and rhythm. Normal S1, S2. No murmurs, rubs or gallops noted. Neck veins not visible. PULMONARY: Bilateral equal air entry, diminished in the bases. No wheezes. ABDOMEN: Soft, obese, nontender, nondistended, positive bowel sounds. [place] edema involving the lower abdomen EXTREMITIES: No cyanosis, clubbing, 3+ edema, cracked skin on lower extremities. NEUROLOGIC: Wiggles fingers and toes spontaneously. Opens eyes to loud voice. Assessment and Plan - Assessment and Plan Plan: IMPRESSION: 1. Acute hypercapnic and hypoxemic respiratory failure. 2. Chronic obstructive pulmonary disease exacerbation. 3. Obstructive sleep apnea/morbid obesity. 4. Gram-positive bacteremia. 5. Urinary tract infection. 6. Bilateral lower extremity cellulitis. 7. Anemia. 8. History of congestive heart failure. 9. History of hypertension. 10. History of diabetes mellitus. 11. Peripheral arterial disease. 12. Hyperlipidemia. 13. Fluid overload. RECOMMENDATIONS: 1. Monitor neuro status closely and minimize any sedatives. 2. PRVC ventilatory mode. Reduce PEEP to 5. 3. Bronchodilators. We will place on DuoNeb every 4 hours and every 2 hours as needed for shortness of breath. We will add Symbicort 160/4.5 two puffs twice daily. 4. Taper Solu-Medrol. 5. Discontinue lisinopril due to problems with hyperkalemia. 6. We will obtain a 2-D echo to evaluate ventricular function. 7. Monitor renal function, I's and O's and avoid nephrotoxins. Electrolyte replacement per protocol. Start continuous infusion loop diuretic 8. Nasogastric tube for GI decompression. Start tube feeds. Glucerna 1.5. 9. Continue with antibiotics per ID. She is currently on vancomycin. Monitor for signs of infection, which include fever and WBC. Blood culture from 10/14/2017 showed gram-positive cocci in 2/4 bottles. Urine culture from 10/14/2017 showed Lactobacillus species. Wound culture from lower extremity showed Staphylococcus aureus and Pseudomonas species. 10. Sliding scale insulin with Accu-Cheks for glycemic control. 11. Monitor CBC. 12. Gastrointestinal prophylaxis with Protonix and deep vein thrombosis prophylaxis with heparin subcutaneously. 13. Add hydralazine 100 mg p.o. 3 times daily 14. Reintroduce JAROD inhibitor at lower dose. 15. Add Levemir 10 units subcu twice daily Overall impression: This woman is critically ill and we are unable to wean her from mechanical ventilation. She has profound fluid overload with diffuse bilateral lung infiltrates and pulmonary venous congestion. There is tense gross edema involving the lower body and extremities. I anticipate great problems weaning her from the ventilator. Our ultimate goal is to find an ideal body weight for this individual and ask her to adjust her diuretic use to maintain this weight. Critical care time 38 minutes
[2017-10-20] MEDS ORDERED: Carvedilol 6.25 MG Tablet PO SCH (10:00)
[2017-10-20] MEDS: Albumin Human 5% Inj 250 ML IV.SIG SCH ×2 (10:32→17:12)
[2017-10-20] MEDS: Insulin Detemir Inj 1,000 UNIT/10 ML Vial SQ SCH ×2 (10:40→21:03)
[2017-10-20] MEDS: Labetalol HCl Inj 100 MG/20 ML Vial IV.PUSH PRN ×3 (10:48→17:25)
[2017-10-20] MEDS: Morphine Inj 4 MG/ML Vial IV.PUSH PRN (16:16)
[2017-10-20] MEDS: Carvedilol 6.25 MG Tablet PO SCH (21:03)
[2017-10-21] MEDS: Oral Hygiene Kit OROPHARYNG SCH ×4 (01:28→16:57)
[2017-10-21] MEDS: Albumin Human 5% Inj 250 ML IV.SIG SCH ×3 (01:32→17:24)
[2017-10-21] MEDS: Insulin NovoLOG Aspart Correctional Sugar Inj SQ SCH ×4 (02:07→20:12)
[2017-10-21] MEDS: Propofol 1000 mg/100 ml Inj 1,000 MG/100 ML BOTTLE IV.CONT PRN ×4 (03:31→22:00)
[2017-10-21] MEDS: Furosemide Inj 100 MG in Sodium Chlor 0.9% Inj 90 ML IV.CONT SCH ×2 (05:20→08:49)
[2017-10-21] MEDS: Heparin - SQ 10,000 UNITS/ML Vial SQ SCH ×3 (05:22→21:59)
[2017-10-21] MEDS: MethylPREDNISolone Sod Succinate Inj 40 MG/ML Vial IV.PUSH SCH ×2 (05:22→13:52)
[2017-10-21 06:15] LABS: Carbon Dioxide 30.5 meq/L (21.0-32.0); Potassium 5.1 meq/L (3.5-5.1)
[2017-10-21] MEDS: Gabapentin 300 MG Capsule PO SCH ×3 (08:04→17:24)
[2017-10-21] MEDS: Pantoprazole Sodium 20 MG DR Tablet PO SCH (08:04)
[2017-10-21] MEDS: Carvedilol 6.25 MG Tablet PO SCH ×2 (08:05→20:12)
[2017-10-21] MEDS: Insulin Detemir Inj 1,000 UNIT/10 ML Vial SQ SCH ×2 (08:05→20:11)
[2017-10-21] MEDS: Chlorhexidine 0.12% Oral Kit 15 ML UDC OROPHARYNG SCH ×2 (08:06→20:12)
[2017-10-21] MEDS: Nystatin 100,000 UNITS/GM Powder 15 GM Bottle TOPICAL SCH ×4 (08:34→20:13)
[2017-10-21] MEDS: Budesonide-Formoterol 160/4.5 MCG 6 GM Inhaler INH SCH ×2 (08:49→20:08)
[2017-10-21] MEDS: Labetalol HCl Inj 100 MG/20 ML Vial IV.PUSH PRN (09:14)
--- NOTE | 2017-10-21 09:34 | XR ---
EXAM DATE: 10/21/2017 9:28 AM EDT AGE/SEX: 62 years / Female INDICATIONS: Shortness of breath. CLINICAL DATA: This is the patient's subsequent encounter. Patient reports that signs and symptoms h ave been present for 4 - 6 days and indicates a pain score of Nonresponsive. MEDICAL/SURGICAL HISTORY: . Diabetes mellitus type II. Congestive heart failure. Hypercholester olemia. Coronary artery disease. Hypertension. COPD. . Cholecystectomy. Tonsillectomy. Coronary fátima ry stent. Pacemaker COMPARISON: [facility], CHEST 1V SINGLE AP, 10/17/2017. . FINDINGS: ET tube above the silverio pacemaker in good position the left. Interval improvement with less intersti tial and alveolar edema. Heart remains enlarged. CONCLUSION: Minimal interval improvement with less edema. Support apparatus in good position. Electronically signed by: Beni Nava MD 10/21/2017 9:33 AM EDT
[2017-10-21 10:34] LABS: ABG Base Excess 8.3 mmol/L (-2-2); ABG PCO2 57 mmHg (38-42); ABG PO2 121 mmHg (61-120)
--- NOTE | 2017-10-21 12:31 | P.DIET ---
Nutritional Evaluation Type of nutrition evaluation: initial Nutrition consult regarding: Tube Feeding Screening comments: Assessment per SCCM and ASPEN guidelines for critically ill pts with a BMI >50. Objective - Diagnosis CHF Exacerbation, B LE Cellulitis - Objective % IBW: 274 (IBW = 110#) Body Weight Used for Calculations: IBW (50 kg) Energy Needs - Lower Range (kCal/kg): 22 Energy Needs - Upper Range (kCal/kg): 25 Lower Limit kCal/kg (kCals): 1,100 Upper Limit kCal/kg (kCals): 1,250 Lower Limit Protein Factor (Grams per Kg): 2.0 Upper Limit Protein Factor (Grams per Kg): 2.5 Lower Protein Needs (Protein): 100 Upper Protein Needs (Protein): 125 Dietitian Reviewed in Medical Record: Curent medications, Intake & Output, Labs , Medical history, Tube feeding Diet Order: NPO Objective Comments: glu 208 BMI 55.2 Feeding - Current Tube Feeding Tube Feeding Product: Glucerna 1.5 Tube Feeding Rate: 20 (mls/hr) Assessment Assessment: Pt is at high nutrition risk 2' to TFing. Recommend Vital High protein @ 50 mls/ hr goal to provide 1200 kcals, 105 gms protein and 1003 mls of free water. Propofol, when running provides 1.1 kcal/ml. Recommendations: Vital High Protein @ 50 mls/hr goal
[2017-10-21] MEDS: Vancomycin Inj 1,250 MG in Sodium Chlor 0.9% Inj 250 ML IV.SIG SCH (13:45)
[2017-10-21] MEDS ORDERED: RESP: Racemic Epinephrine 2.25% 0.5 ML Neb ONE ×2 (14:36)
[2017-10-21] MEDS ORDERED: Dexamethasone Inj 20 MG/5 ML Vial ONE (15:01)
[2017-10-21] MEDS ORDERED: Dexamethasone Inj 20 MG/5 ML Vial IV.PUSH STA (15:02)
[2017-10-21] MEDS ORDERED: Etomidate Inj 40 MG/20 ML Vial IV.PUSH ONE ×2 (15:39→16:05)
[2017-10-21] MEDS ORDERED: Midazolam Inj 5 MG/ML 1 ML Vial ONE (15:39)
--- NOTE | 2017-10-21 16:02 | P.PCN ---
Date of procedure: 10/21/17 Pre-op diagnosis: Upper airway obstruction/stridor Post-op diagnosis: same Procedure: Emergency endotracheal intubation Patient post extubation stridor. Patient was appropriately positioned and was administered etomidate 20 mg IV, Versed 10 IV. Neuromuexcular paralysis with 50 mg IV Rocuronium. I entered Oropharynx with GlideScope #4 blade and, obtained grade 2 view, and intubated with 7.5 ETT. ET tube placement confirmed by directly visualizing the tube passing through the vocal cords, air entry equal bilaterally and, end-tidal CO2 color change. Mild vocal cord edema noted. Postprocedure chest x-ray is pending at this time Anesthesia: DARBY Surgeon: Elvis Bueno Estimated blood loss (mL): 0 Pathology: none sent Condition: critical Disposition: ICU
[2017-10-21] MEDS ORDERED: Midazolam Inj 5 MG/ML 1 ML Vial IV.PUSH ONE (16:05)
--- NOTE | 2017-10-21 16:40 | P.PCN ---
Date of procedure: 10/21/17 Procedure: DX: Poor Venous Access OP: Insertion Left Subclavian Central Venous Line. Procedure: Time out. Right chest prepped and draped. Right subclavian vein cannulated with 20 gauge spinal needle. Wire easily advanced and catheter passed over wire to 18 cm. Lumens aspirated and flushed. Dressing applied. CXR ordered.
[2017-10-21] MEDS ORDERED: RESP: Racemic Epinephrine 2.25% 0.5 ML Neb NEB ONE (16:45)
--- NOTE | 2017-10-21 17:00 | XR ---
EXAM DATE: 10/21/2017 4:53 PM EDT AGE/SEX: 62 years / Female INDICATIONS: Post intubation and central line placement. CLINICAL DATA: This is the patient's subsequent encounter. Patient reports that signs and symptoms h ave been present for 4 - 6 days and indicates a pain score of Nonresponsive. MEDICAL/SURGICAL HISTORY: . Diabetes mellitus type II. Congestive heart failure. Hypercholester olemia. Coronary artery disease. Hypertension. COPD. Coronary artery stent. Pacemaker. [place] [facility] [place]. . FINDINGS: ET tube is in the proximal right mainstem bronchus. NGT courses beyond the GE junction with tip omitt ed from the image. Right subclavian central line with tip obscured in the region of the cavoatrial junction. No signific ant pneumothorax. Patchy bilateral lower lung zone airspace disease. Cardiomegaly saw contours are st able. Remainder of the exam is unchanged. CONCLUSION: 1. ETT in the proximal right mainstem bronchus. 2. Remaining tubes and lines, as above. 3. Patchy airspace disease in the lower lobes, presumably atelectasis. Electronically signed by: Stu Go MD 10/21/2017 4:59 PM EDT
[2017-10-22] MEDS: Propofol 1000 mg/100 ml Inj 1,000 MG/100 ML BOTTLE IV.CONT PRN ×8 (00:33→23:25)
[2017-10-22] MEDS: Oral Hygiene Kit OROPHARYNG SCH ×4 (00:33→16:28)
[2017-10-22] MEDS: Albumin Human 5% Inj 250 ML IV.SIG SCH (00:59)
[2017-10-22] MEDS: Insulin NovoLOG Aspart Correctional Sugar Inj SQ SCH ×4 (02:02→20:36)
[2017-10-22] MEDS: Furosemide Inj 100 MG in Sodium Chlor 0.9% Inj 90 ML IV.CONT SCH (04:58)
[2017-10-22] MEDS: Heparin - SQ 10,000 UNITS/ML Vial SQ SCH ×3 (04:59→22:22)
[2017-10-22] MEDS: Labetalol HCl Inj 100 MG/20 ML Vial IV.PUSH PRN ×2 (05:14→12:18)
[2017-10-22 05:20] LABS: Carbon Dioxide 36.3 meq/L (21.0-32.0); Magnesium 2.3 mg/dL (1.5-2.5); Phosphorus 3.8 mg/dL (2.5-4.9)
[2017-10-22] MEDS: Budesonide-Formoterol 160/4.5 MCG 6 GM Inhaler INH SCH ×3 (08:06→20:06)
[2017-10-22] MEDS: Insulin Detemir Inj 1,000 UNIT/10 ML Vial SQ SCH (08:40)
[2017-10-22] MEDS: Chlorhexidine 0.12% Oral Kit 15 ML UDC OROPHARYNG SCH ×2 (08:40→20:05)
[2017-10-22] MEDS: Carvedilol 6.25 MG Tablet PO SCH ×2 (08:40→20:36)
[2017-10-22] MEDS: Pantoprazole Sodium 20 MG DR Tablet PO SCH (08:40)
[2017-10-22] MEDS: Gabapentin 300 MG Capsule PO SCH ×3 (08:40→17:27)
[2017-10-22] MEDS: Nystatin 100,000 UNITS/GM Powder 15 GM Bottle TOPICAL SCH ×4 (08:41→20:37)
[2017-10-22] MEDS: Albumin Human 25% Inj 100 ML IV.SIG SCH ×2 (10:23→22:23)
--- NOTE | 2017-10-22 10:28 | P.PNCC ---
Subjective Subjective Remarks/Hospital Course: The patient is a 62-year-old female with past medical history of diabetes mellitus, COPD on 2 liters nasal cannula, obstructive sleep apnea on CPAP at home, however, she is not using it; hypertension, hyperlipidemia, CHF with pacemaker placement. She presented to [facility] ED with edema and swelling of lower extremity and shortness of breath. The patient was admitted under Hospitalist Service and was seen by Infectious Disease Service. She is currently being treated for a urinary tract infection, gram-positive bacteremia. In addition, she had a wound culture from her leg positive for Pseudomonas species and Staphylococcus aureus. Chest x-ray from this morning showed increased pulmonary vascularity. She had an ABG on 2 liters at 8:42 which showed acute hypercapnic respiratory acidosis with a pH of 7.24, CO2 72, PaO2 84, bicarbonate of 30, and saturation 93%. She was subsequently placed on BiPAP 14/8 with 30% FiO2. Due to lethargy and respiratory distress, Critical Care Medicine was consulted. When seen, the patient able to respond to questions appropriately; however, she dozes off and falls back to sleep. 10/18: Patient persists with severe lower body edema and associated cutaneous wounds. She has developed azotemia with earlier attempts at diuresis but at this point she will not resolve her skin wounds without sign fluid removal. We will attempt a continuous infusion Lasix drip to see if we can get a more gingerly diuresis and avoid the dramatic intravascular volume changes. She remains ventilator dependent. 10/19: We have finally shifted into predictable negative fluid balance. Renal function remains acceptable despite very aggressive diuretic therapy. The next few days will tell us if this is largely extravascular water or there is a component of lymphedema. 10/20: Continued 3 L diuresis daily. Creatinine has declined to 1.0, BU and acceptable at 44. Will add intermittent albumin infusion and continue loop diuretic continuous infusion. Persistent hypertension will require additional oral agents. Convert tube feeds to Glucerna 1.5 and add Levemir twice daily as a basal source of insulin. 10/21: Diurses continues with mild azotemia. Edema considerably resolved. Extubation attempted with good as exchange but upper airway stridor required reintubation. Objective Vital Signs / I&O: Vital Signs 10/21/17 10:57 10/21/17 12:00 10/21/17 12:05 Temperature 97.9 F Pulse Rate 76 62 Respiratory Rate 15 14 Blood Pressure 156/72 H Pulse Oximetry 98 100 10/21/17 14:00 10/21/17 14:43 10/21/17 14:54 Temperature Pulse Rate 86 96 H Respiratory Rate 18 Blood Pressure Pulse Oximetry 96 10/21/17 15:30 10/21/17 16:00 10/21/17 16:03 Temperature 98.2 F Pulse Rate 64 85 Respiratory Rate 23 16 16 Blood Pressure 182/84 H Pulse Oximetry 98 100 10/21/17 16:56 10/21/17 18:00 10/21/17 19:50 Temperature Pulse Rate 71 89 Respiratory Rate 16 16 Blood Pressure Pulse Oximetry 99 10/21/17 19:53 10/21/17 20:00 10/21/17 20:09 Temperature 97.5 F L Pulse Rate 88 89 90 Respiratory Rate 16 16 16 Blood Pressure 164/87 H Pulse Oximetry 98 10/21/17 22:00 10/22/17 00:00 10/22/17 00:04 Temperature 97.9 F Pulse Rate 85 87 Respiratory Rate 16 18 Blood Pressure 153/85 H Pulse Oximetry 100 100 10/22/17 00:09 10/22/17 02:00 10/22/17 03:37 Temperature Pulse Rate 85 81 84 Respiratory Rate 17 16 Blood Pressure Pulse Oximetry 100 10/22/17 04:00 10/22/17 06:00 10/22/17 08:00 Temperature 98.2 F 98.4 F Pulse Rate 83 82 82 Respiratory Rate 20 Blood Pressure 181/84 H 150/98 H Pulse Oximetry 100 99 10/22/17 08:17 10/22/17 10:00 Temperature Pulse Rate 83 81 Respiratory Rate 18 Blood Pressure Pulse Oximetry 100 Intake & Output 10/21/17 10/22/17 10/22/17 18:59 06:59 18:59 Intake Total 1162.5 / 1162.5 650 / 650 125.5 / 125.5 Output Total 800 / 800 2220 / 2220 Balance 362.5 / 362.5 -1570 / -1570 125.5 / 125.5 Weight 132.3 kg Intake: IV 1162.5 / 1162.5 650 / 650 125.5 / 125.5 Lasix Inj 100 MG In NS Inj 90 100 / 100 100 / 100 ML @ 5 mls/hr IV.CONT .Q20H [facility] Rx#:[id number] Diprivan 1000 mg/100 ml Inj 1, 100 / 100 300 / 300 25.5 / 25.5 000 mg In 100 ml @ 5 MCG/KG/MIN 4.452 mls/hr IV.CONT TITRATE PRN Rx#:[id number] Buminate 5% Inj 250 ML @ 250 500 / 500 250 / 250 mls/hr IV.SIG Q8H [facility] Rx#: [id number] Azactam Inj 1,000 MG In NS Inj 200 / 200 100 / 100 100 ML @ 200 mls/hr IV.SIG Q8H [facility] Rx#:[id number] Vancomycin Inj 1,250 MG In NS 262.5 / 262.5 Inj 250 ML @ 250 mls/hr IV.SIG Q24H [facility] Rx#:[id number] Output: Stool 0 / 0 Urine Amount (Catheter) 450 / 450 2200 / 2200 Indwelling Urethral Catheter 450 / 450 2200 / 2200 Gastric Drainage 350 / 350 20 / 20 Oral Orogastric Tube 350 / 350 20 / 20 Other: Date of Last Bowel Movement 10/13/17 Result Diagrams: 10/18/17 03:40 10/22/17 04:30 Objective Remarks: PHYSICAL EXAMINATION: GENERAL: A 62-year-old female, sedated. HEAD: Atraumatic, normocephalic. Pupils are equal, round, reactive to light and accommodation. Extraocular muscles intact. Conjunctivae pink. Nonicteric sclerae. Oral mucosa within normal. NECK: Supple. Trachea in the midline. Worsening stridor refractory to racemic epi. CARDIOVASCULAR: Regular rate and rhythm. Normal S1, S2. No murmurs, rubs or gallops noted. Neck veins not visible. PULMONARY: Bilateral equal air entry, diminished in the bases. No wheezes. ABDOMEN: Soft, obese, nontender, nondistended, positive bowel sounds. [place] edema involving the lower abdomen EXTREMITIES: No cyanosis, clubbing, 1+ edema, cracked skin on lower extremities with wrinkling of feet now. NEUROLOGIC: Wiggles fingers and toes spontaneously. Conversant but confused after extubation. Assessment and Plan - Assessment and Plan Plan: IMPRESSION: 1. Acute hypercapnic and hypoxemic respiratory failure. 2. Chronic obstructive pulmonary disease exacerbation. 3. Obstructive sleep apnea/morbid obesity. 4. Gram-positive bacteremia. 5. Urinary tract infection. 6. Bilateral lower extremity cellulitis. 7. Anemia. 8. History of congestive heart failure. 9. History of hypertension. 10. History of diabetes mellitus. 11. Peripheral arterial disease. 12. Hyperlipidemia. 13. Fluid overload. RECOMMENDATIONS: 1. Monitor neuro status closely and minimize any sedatives. 2. Reintubate. PRVC ventilatory mode. Reduce PEEP to 5. 3. Bronchodilators. We will place on DuoNeb every 4 hours and every 2 hours as needed for shortness of breath. We will add Symbicort 160/4.5 two puffs twice daily. 4. Taper Solu-Medrol off. 5. Discontinue lisinopril due to problems with hyperkalemia. 6. We will obtain a 2-D echo to evaluate ventricular function. 7. Monitor renal function, I's and O's and avoid nephrotoxins. Electrolyte replacement per protocol. Start continuous infusion loop diuretic 8. Nasogastric tube for GI decompression. Start tube feeds. Glucerna 1.5. 9. Continue with antibiotics per ID. She is currently on vancomycin. Monitor for signs of infection, which include fever and WBC. Blood culture from 10/14/2017 showed gram-positive cocci in 2/4 bottles. Urine culture from 10/14/2017 showed Lactobacillus species. Wound culture from lower extremity showed Staphylococcus aureus and Pseudomonas species. 10. Sliding scale insulin with Accu-Cheks for glycemic control. 11. Monitor CBC. 12. Gastrointestinal prophylaxis with Protonix and deep vein thrombosis prophylaxis with heparin subcutaneously. 13. Add hydralazine 100 mg p.o. 3 times daily 14. Reintroduce JAROD inhibitor at lower dose. 15. Add Levemir 10 units subcu twice daily Overall impression: This woman is critically ill. She required reintubation but diffusion capacity is much improved. She had profound fluid overload with diffuse bilateral lung infiltrates and pulmonary venous congestion. There was tense gross edema involving the lower body and extremities. Our ultimate goal is to find an ideal body weight for this individual and ask her to adjust her diuretic use to maintain this weight. Will attempt extubation again after 48 hours of steroid therapy.
[2017-10-22] MEDS ORDERED: Insulin Detemir Inj 1,000 UNIT/10 ML Vial SQ SCH (11:26)
--- NOTE | 2017-10-22 11:28 | P.PNCC ---
Subjective Subjective Remarks/Hospital Course: The patient is a 62-year-old female with past medical history of diabetes mellitus, COPD on 2 liters nasal cannula, obstructive sleep apnea on CPAP at home, however, she is not using it; hypertension, hyperlipidemia, CHF with pacemaker placement. She presented to [facility] ED with edema and swelling of lower extremity and shortness of breath. The patient was admitted under Hospitalist Service and was seen by Infectious Disease Service. She is currently being treated for a urinary tract infection, gram-positive bacteremia. In addition, she had a wound culture from her leg positive for Pseudomonas species and Staphylococcus aureus. Chest x-ray from this morning showed increased pulmonary vascularity. She had an ABG on 2 liters at 8:42 which showed acute hypercapnic respiratory acidosis with a pH of 7.24, CO2 72, PaO2 84, bicarbonate of 30, and saturation 93%. She was subsequently placed on BiPAP 22/10 with 30% FiO2. Due to lethargy and respiratory distress, Critical Care Medicine was consulted. When seen, the patient able to respond to questions appropriately; however, she dozes off and falls back to sleep. 10/18: Patient persists with severe lower body edema and associated cutaneous wounds. She has developed azotemia with earlier attempts at diuresis but at this point she will not resolve her skin wounds without sign fluid removal. We will attempt a continuous infusion Lasix drip to see if we can get a more gingerly diuresis and avoid the dramatic intravascular volume changes. She remains ventilator dependent. 10/19: We have finally shifted into predictable negative fluid balance. Renal function remains acceptable despite very aggressive diuretic therapy. The next few days will tell us if this is largely extravascular water or there is a component of lymphedema. 10/20: Continued 3 L diuresis daily. Creatinine has declined to 1.0, BU and acceptable at 44. Will add intermittent albumin infusion and continue loop diuretic continuous infusion. Persistent hypertension will require additional oral agents. Convert tube feeds to Glucerna 1.5 and add Levemir twice daily as a basal source of insulin. 10/21: Diurses continues with mild azotemia. Edema considerably resolved. Extubation attempted with good as exchange but upper airway stridor required reintubation. 10/22: Patient required reintubation yesterday for started. Currently intubated sedated. Continues to have excellent diuresis 2.6 L in 24 hours, continues to lose weight. Achieving negative balance. Edema resolving Objective Vital Signs / I&O: Vital Signs 10/21/17 12:00 10/21/17 12:05 10/21/17 14:00 Temperature 97.9 F Pulse Rate 76 62 86 Respiratory Rate 15 14 Blood Pressure 156/72 H Pulse Oximetry 100 10/21/17 14:43 10/21/17 14:54 10/21/17 15:30 Temperature Pulse Rate 96 H 64 Respiratory Rate 18 23 Blood Pressure Pulse Oximetry 96 10/21/17 16:00 10/21/17 16:03 10/21/17 16:56 Temperature 98.2 F Pulse Rate 85 71 Respiratory Rate 16 16 16 Blood Pressure 182/84 H Pulse Oximetry 98 100 10/21/17 18:00 10/21/17 19:50 10/21/17 19:53 Temperature Pulse Rate 89 88 Respiratory Rate 16 16 Blood Pressure Pulse Oximetry 99 10/21/17 20:00 10/21/17 20:09 10/21/17 22:00 Temperature 97.5 F L Pulse Rate 89 90 85 Respiratory Rate 16 16 Blood Pressure 164/87 H Pulse Oximetry 98 10/22/17 00:00 10/22/17 00:04 10/22/17 00:09 Temperature 97.9 F Pulse Rate 87 85 Respiratory Rate 16 18 17 Blood Pressure 153/85 H Pulse Oximetry 100 100 10/22/17 02:00 10/22/17 03:37 10/22/17 04:00 Temperature 98.2 F Pulse Rate 81 84 83 Respiratory Rate 16 20 Blood Pressure 181/84 H Pulse Oximetry 100 100 10/22/17 06:00 10/22/17 08:00 10/22/17 08:17 Temperature 98.4 F Pulse Rate 82 82 83 Respiratory Rate 18 Blood Pressure 150/98 H Pulse Oximetry 99 100 10/22/17 10:00 10/22/17 11:09 10/22/17 11:10 Temperature Pulse Rate 81 81 Respiratory Rate 20 17 Blood Pressure Pulse Oximetry 100 Intake & Output 10/21/17 10/22/17 10/22/17 18:59 06:59 18:59 Intake Total 1162.5 / 1162.5 650 / 650 125.5 / 125.5 Output Total 800 / 800 2220 / 2220 Balance 362.5 / 362.5 -1570 / -1570 125.5 / 125.5 Weight 132.3 kg Intake: IV 1162.5 / 1162.5 650 / 650 125.5 / 125.5 Lasix Inj 100 MG In NS Inj 90 100 / 100 100 / 100 ML @ 5 mls/hr IV.CONT .Q20H GUICHO Rx#:[id number] Diprivan 1000 mg/100 ml Inj 1, 100 / 100 300 / 300 25.5 / 25.5 000 mg In 100 ml @ 5 MCG/KG/MIN 4.452 mls/hr IV.CONT TITRATE PRN Rx#:[id number] Buminate 5% Inj 250 ML @ 250 500 / 500 250 / 250 mls/hr IV.SIG Q8H GUICHO Rx#: [id number] Azactam Inj 1,000 MG In NS Inj 200 / 200 100 / 100 100 ML @ 200 mls/hr IV.SIG Q8H GUICHO Rx#:[id number] Vancomycin Inj 1,250 MG In NS 262.5 / 262.5 Inj 250 ML @ 250 mls/hr IV.SIG Q24H GUICHO Rx#:[id number] Output: Stool 0 / 0 Urine Amount (Catheter) 450 / 450 2200 / 2200 Indwelling Urethral Catheter 450 / 450 2200 / 2200 Gastric Drainage 350 / 350 20 / 20 Oral Orogastric Tube 350 / 350 20 / 20 Other: Date of Last Bowel Movement 10/13/17 Result Diagrams: 10/18/17 03:40 10/22/17 04:30 Objective Remarks: GENERAL: A 62-year-old female, sedated. Intubated HEAD: Atraumatic, normocephalic. Pupils are equal, round, reactive to light and accommodation. Extraocular muscles intact. ENT: Orotracheally intubated NECK: Supple. Trachea in the midline. CARDIOVASCULAR: Regular rate and rhythm. Normal S1, S2. No murmurs, rubs or gallops noted. Neck veins not visible. PULMONARY: Bilateral equal air entry, diminished in the bases. No wheezes. PRVC ABDOMEN: Soft, obese, nontender, nondistended, positive bowel sounds. [place] edema involving the lower abdomen EXTREMITIES: No cyanosis, clubbing, 1+ edema, cracked skin on lower extremities with wrinkling of feet now. NEUROLOGIC: Intubated heavily sedated moves extremities spontaneously Assessment and Plan - Assessment and Plan Plan: IMPRESSION: Acute hypercapnic and hypoxemic respiratory failure. Upper airway obstruction/stridor Congestive heart failure Acute chronic obstructive pulmonary disease exacerbation. Obstructive sleep apnea/morbid obesity. Gram-positive bacteremia. Urinary tract infection. Bilateral lower extremity cellulitis. Anemia. History of congestive heart failure. History of hypertension. History of diabetes mellitus. Peripheral arterial disease. Hyperlipidemia. Fluid overload. RECOMMENDATIONS: 1. Monitor neuro status closely and currenlty sedated for vent synchrony, minimize sedation 2. Reintubated 10/21/2017 for stridor. PRVC ventilatory mode. PEEP 5. 3. Bronchodilators. DuoNeb every 4 hours and every 2 hours as needed for shortness of breath. 4. Solu-Medrol discontinued and Decadron 4 mg IV every 6 hours started yesterday for stridor after 10 mg IV push 5. Discontinued lisinopril due to problems with hyperkalemia. Restarted at low -dose for blood pressure control 6. We will obtain a 2-D echo to evaluate ventricular function. 7. Monitor renal function, I's and O's and avoid nephrotoxins. Electrolyte replacement per protocol. Continuous infusion of furosemide 8. Nasogastric tube for GI decompression. Start tube feeds. Glucerna 1.5. 9. Continue with antibiotics per ID. She is currently on vancomycin and Azactam. Blood culture from 10/14/2017 showed gram-positive cocci in 2/4 bottles. Urine culture from 10/14/2017 showed Lactobacillus species. Wound culture from lower extremity showed Staphylococcus aureus and Pseudomonas 10. Sliding scale insulin with Accu-Cheks for glycemic control. Increase Levemir to 15 units every 12 11. Monitor CBC. 12. Gastrointestinal prophylaxis with Protonix and deep vein thrombosis prophylaxis with heparin subcutaneously. 13. Hydralazine 100 mg p.o. 3 times daily Overall impression: This woman is critically ill. She required reintubation for stridor but diffusion capacity is much improved. She had profound fluid overload with diffuse bilateral lung infiltrates and pulmonary venous congestion. Our ultimate goal is to find an ideal body weight for this individual and ask her to adjust her diuretic use to maintain this weight. Will attempt extubation again after 48 hours of steroid therapy. CCT 35 MIN Code Status: Full
[2017-10-22 11:29] LABS: Hematocrit 30.7 % (35.0-46.0); Hemoglobin 9.3 gm/dL (11.6-15.3); Mean Corpuscular Hemoglobin 22.4 pg (27.0-34.0); Mean Corpuscular Volume 73.7 fL (80.0-100.0); Mean Platelet Volume 8.3 fL (7.0-11.0); Platelet Count 274 th/mm3 (150-450); Red Blood Count 4.17 mil/mm3 (4.00-5.30); Red Cell Distribution Width 18.8 % (11.6-17.2); White Blood Count 5.7 th/mm3 (4.0-11.0)
[2017-10-22 11:36] LABS: Mean Corpuscular HGB Conc 30.4 % (32.0-36.0)
[2017-10-22] MEDS: Vancomycin Inj 1,250 MG in Sodium Chlor 0.9% Inj 250 ML IV.SIG SCH (13:53)
--- NOTE | 2017-10-22 19:00 | P.PNID ---
Subjective Remarks: On vent intubated On diuretiocs WBC down to 5K Antibiotics: vanco azactam Allergies/Adverse Reactions: Allergies codeine Allergy (Intermediate, Verified 10/14/17 18:32) rash penicillin G Allergy (Intermediate, Verified 10/14/17 18:32) RASH,FEVER, SEIZURE *MDRO Multi-Drug Resistant Organism Adverse Reaction (Unknown, Uncoded 09/16/17 20:28) Cleared 04/25/16 MRSA (leg wound) 04/2015 MRSA PCR screen NEGATIVE - 03/26/16 & 04/25/16 Cleared per Infection Control Objective Vital Signs 10/21/17 19:50 10/21/17 19:53 10/21/17 20:00 Temperature 97.5 F L Pulse Rate 88 89 Respiratory Rate 16 16 16 Blood Pressure 164/87 H Pulse Oximetry 99 98 10/21/17 20:09 10/21/17 22:00 10/22/17 00:00 Temperature 97.9 F Pulse Rate 90 85 87 Respiratory Rate 16 16 Blood Pressure 153/85 H Pulse Oximetry 100 10/22/17 00:04 10/22/17 00:09 10/22/17 02:00 Temperature Pulse Rate 85 81 Respiratory Rate 18 17 Blood Pressure Pulse Oximetry 100 10/22/17 03:37 10/22/17 04:00 10/22/17 06:00 Temperature 98.2 F Pulse Rate 84 83 82 Respiratory Rate 16 20 Blood Pressure 181/84 H Pulse Oximetry 100 100 10/22/17 08:00 10/22/17 08:17 10/22/17 10:00 Temperature 98.4 F Pulse Rate 82 83 81 Respiratory Rate 18 Blood Pressure 150/98 H Pulse Oximetry 99 100 10/22/17 11:09 10/22/17 11:10 10/22/17 12:00 Temperature 98.4 F Pulse Rate 81 78 Respiratory Rate 20 17 16 Blood Pressure 172/77 H Pulse Oximetry 100 99 10/22/17 14:00 10/22/17 16:00 10/22/17 16:01 Temperature 98.1 F Pulse Rate 81 79 78 Respiratory Rate 17 21 Blood Pressure 150/66 H Pulse Oximetry 99 99 10/22/17 18:00 Temperature Pulse Rate 77 Respiratory Rate Blood Pressure Pulse Oximetry Intake & Output 10/21/17 10/22/17 10/22/17 18:59 06:59 18:59 Intake Total 1162.5 / 1162.5 650 / 650 739.0 / 739.0 Output Total 800 / 800 2220 / 2220 1924 Balance 362.5 / 362.5 -1570 / -1570 -1186.0 / -1186.0 Weight 132.3 kg Intake: IV 1162.5 / 1162.5 650 / 650 739.0 / 739.0 Lasix Inj 100 MG In NS Inj 90 100 / 100 100 / 100 ML @ 5 mls/hr IV.CONT .Q20H GUICHO Rx#:[id number] Diprivan 1000 mg/100 ml Inj 1, 100 / 100 300 / 300 176.5 / 176.5 000 mg In 100 ml @ 5 MCG/KG/MIN 4.452 mls/hr IV.CONT TITRATE PRN Rx#:[id number] Flexbumin 25% Inj 100 ML @ 60 100 / 100 mls/hr IV.SIG Q12H GUICHO Rx#: [id number] Buminate 5% Inj 250 ML @ 250 500 / 500 250 / 250 mls/hr IV.SIG Q8H GUICHO Rx#: [id number] Azactam Inj 1,000 MG In NS Inj 200 / 200 200 / 200 100 ML @ 200 mls/hr IV.SIG Q8H GUICHO Rx#:[id number] Vancomycin Inj 1,250 MG In NS 262.5 / 262.5 262.5 / 262.5 Inj 250 ML @ 250 mls/hr IV.SIG Q24H GUICHO Rx#:[id number] Output: Stool 0 / 0 Urine Amount (Catheter) 450 / 450 2200 / 2200 1924 Indwelling Urethral Catheter 450 / 450 2200 / 2200 1924 Gastric Drainage 350 / 350 20 / 20 Oral Orogastric Tube 350 / 350 20 / 20 Other: Date of Last Bowel Movement 10/13/17 # Bowel Movements 0 10/17/17 16:49 Blood - Peripheral Aerobic Blood Culture - Final No growth in 5 days 10/17/17 16:49 Blood - Peripheral Anaerobic Blood Culture - Final No growth in 5 days 10/17/17 16:54 Blood - Peripheral Aerobic Blood Culture - Final No growth in 5 days 10/17/17 16:54 Blood - Peripheral Anaerobic Blood Culture - Final No growth in 5 days 10/18/17 04:03 Sputum - Endotracheal Gram Stain - Final 10/18/17 04:03 Sputum - Endotracheal Sputum Culture - Final Heavy growth normal respiratory kristy Lab - Hematology Results 10/22/17 10:32 WBC 5.7 RBC 4.17 Hgb 9.3 L Hct 30.7 L MCV 73.7 L MCH 22.4 L MCHC 30.4 L RDW 18.8 H Plt Count 274 MPV 8.3 Lab - Chemistry Results 10/20/17 10/21/17 10/21/17 19:46 02:01 04:02 Sodium 141 Potassium 5.1 Chloride 102 Carbon Dioxide 30.5 Anion Gap 9 BUN 47 H Creatinine 0.96 Estimated GFR 59 L POC Glucose 202 H 211 H Random Glucose 208 H Calcium 9.0 Phosphorus Magnesium 10/21/17 10/21/17 10/21/17 08:14 13:55 19:55 Sodium Potassium Chloride Carbon Dioxide Anion Gap BUN Creatinine Estimated GFR POC Glucose 210 H 218 H 265 H Random Glucose Calcium Phosphorus Magnesium 10/22/17 10/22/17 10/22/17 01:57 04:30 07:50 Sodium 146 H Potassium 4.0 D Chloride 102 Carbon Dioxide 36.3 H Anion Gap 8 BUN 49 H Creatinine 1.02 H Estimated GFR 55 L POC Glucose 232 H 259 H Random Glucose 240 H Calcium 9.0 Phosphorus 3.8 Magnesium 2.3 10/22/17 13:29 Sodium Potassium Chloride Carbon Dioxide Anion Gap BUN Creatinine Estimated GFR POC Glucose 193 H Random Glucose Calcium Phosphorus Magnesium Imaging: ITS Impressions Chest X-Ray 10/21/17 15:57 CONCLUSION: 1. ETT in the proximal right mainstem bronchus. 2. Remaining tubes and lines, as above. 3. Patchy airspace disease in the lower lobes, presumably atelectasis. Physical Exam: GENERAL: Sedated intubated on vent SKIN: Warm and dry. edema erythema and draining wounds on BLE anasarca up to the chest HEAD: Atraumatic. Normocephalic. EYES: Pupils equal and round. No scleral icterus. No injection or drainage. ENT: No nasal bleeding or discharge. Mucous membranes pink and moist. NECK: Trachea midline. No JVD. CARDIOVASCULAR: Regular rate and rhythm. RESPIRATORY: No accessory muscle use. Clear to auscultation. Breath sounds equal bilaterally. GASTROINTESTINAL: Abdomen soft, non-tender, distended. Hepatic and splenic margins not palpable. Anasarca , tigjht edema of abdominal wall MUSCULOSKELETAL: Extremities without clubbing, cyanosis, much impproved edema with prominent tree bark [place]. No obvious deformities. NEUROLOGICAL: sedated PSYCHIATRIC: unabl e to assess Assessment and Plan - Plan Morbid obesity chronic venostasis BLE cellulits and infected wounds Micrococcus bacteremia - proabbly from the cellulits - not sustained - 2/2 sets positive UA with too many sq epi cells to reliably inteprete cont vancomycin x 2 weeks from 1st neg blood clx cont azactam 2 D echo fu repeat BC
[2017-10-23] MEDS: Oral Hygiene Kit OROPHARYNG SCH ×4 (00:48→17:53)
[2017-10-23] MEDS: Furosemide Inj 100 MG in Sodium Chlor 0.9% Inj 90 ML IV.CONT SCH ×2 (01:15→23:09)
[2017-10-23] MEDS: Insulin NovoLOG Aspart Correctional Sugar Inj SQ SCH ×4 (02:21→20:09)
[2017-10-23] MEDS: Labetalol HCl Inj 100 MG/20 ML Vial IV.PUSH PRN ×2 (02:33→16:39)
[2017-10-23] MEDS: Propofol 1000 mg/100 ml Inj 1,000 MG/100 ML BOTTLE IV.CONT PRN ×3 (02:44→14:11)
--- NOTE | 2017-10-23 05:11 | XR ---
EXAM DATE: 10/23/2017 4:10 AM EDT AGE/SEX: 62 years / Female INDICATIONS: Shortness of breath. CLINICAL DATA: This is the patient's subsequent encounter. Patient reports that signs and symptoms h ave been present for 4 - 6 days and indicates a pain score of Nonresponsive. MEDICAL/SURGICAL HISTORY: . Diabetes mellitus type II. Congestive heart failure. Hypercholester olemia. Coronary artery disease. Hypertension. COPD. . Coronary artery stent. Pacemaker. COMPARISON: [facility] [place], CHEST 1V SINGLE AP, 10/21/2017. . FINDINGS: A single AP view of the chest demonstrates cardiomegaly with bilateral perihilar and bibasilar densit ies. Endotracheal tube 2 cm above the [place]. Nasogastric tube with tip in stomach. Left-sided pacema ker unchanged.. The cardiomediastinal contours are unremarkable. Osseous structures are intact. CONCLUSION: Cardiomegaly with bilateral perihilar and bibasilar densities. Electronically signed by: Jc Strauss MD 10/23/2017 5:09 AM EDT
[2017-10-23 05:33] LABS: Hematocrit 31.7 % (35.0-46.0); Hemoglobin 9.8 gm/dL (11.6-15.3); Mean Corpuscular Hemoglobin 22.7 pg (27.0-34.0); Mean Corpuscular Volume 73.7 fL (80.0-100.0); Mean Platelet Volume 8.2 fL (7.0-11.0); Platelet Count 264 th/mm3 (150-450); Red Cell Distribution Width 18.8 % (11.6-17.2); White Blood Count 6.6 th/mm3 (4.0-11.0)
[2017-10-23 05:38] LABS: Mean Corpuscular HGB Conc 30.8 % (32.0-36.0)
[2017-10-23] MEDS: Heparin - SQ 10,000 UNITS/ML Vial SQ SCH ×3 (05:40→22:55)
--- NOTE | 2017-10-23 07:01 | P.PNCC ---
Subjective Subjective Remarks/Hospital Course: The patient is a 62-year-old female with past medical history of diabetes mellitus, COPD on 2 liters nasal cannula, obstructive sleep apnea on CPAP at home, however, she is not using it; hypertension, hyperlipidemia, CHF with pacemaker placement. She presented to [facility] ED with edema and swelling of lower extremity and shortness of breath. The patient was admitted under Hospitalist Service and was seen by Infectious Disease Service. She is currently being treated for a urinary tract infection, gram-positive bacteremia. In addition, she had a wound culture from her leg positive for Pseudomonas species and Staphylococcus aureus. Chest x-ray from this morning showed increased pulmonary vascularity. She had an ABG on 2 liters at 8:42 which showed acute hypercapnic respiratory acidosis with a pH of 7.24, CO2 72, PaO2 84, bicarbonate of 30, and saturation 93%. She was subsequently placed on BiPAP 22/10 with 30% FiO2. Due to lethargy and respiratory distress, Critical Care Medicine was consulted. When seen, the patient able to respond to questions appropriately; however, she dozes off and falls back to sleep. 10/18: Patient persists with severe lower body edema and associated cutaneous wounds. She has developed azotemia with earlier attempts at diuresis but at this point she will not resolve her skin wounds without sign fluid removal. We will attempt a continuous infusion Lasix drip to see if we can get a more gingerly diuresis and avoid the dramatic intravascular volume changes. She remains ventilator dependent. 10/19: We have finally shifted into predictable negative fluid balance. Renal function remains acceptable despite very aggressive diuretic therapy. The next few days will tell us if this is largely extravascular water or there is a component of lymphedema. 10/20: Continued 3 L diuresis daily. Creatinine has declined to 1.0, BU and acceptable at 44. Will add intermittent albumin infusion and continue loop diuretic continuous infusion. Persistent hypertension will require additional oral agents. Convert tube feeds to Glucerna 1.5 and add Levemir twice daily as a basal source of insulin. 10/21: Diurses continues with mild azotemia. Edema considerably resolved. Extubation attempted with good as exchange but upper airway stridor required reintubation. 10/22: Patient required reintubation yesterday for started. Currently intubated sedated. Continues to have excellent diuresis 2.6 L in 24 hours, continues to lose weight. Achieving negative balance. Edema resolving 10/23: Remains intubated sedated. Urine output remains excellent on Lasix drip 4 L in 24 hours. However increased predominantly inspiratory wheezing noted today. Chest x-ray slightly increased pulmonary vascular congestion, perihilar infiltrates. Will add 2 doses of Diamox Objective Vital Signs / I&O: Vital Signs 10/22/17 08:00 10/22/17 08:17 10/22/17 10:00 Temperature 98.4 F Pulse Rate 82 83 81 Respiratory Rate 18 Blood Pressure 150/98 H Pulse Oximetry 99 100 10/22/17 11:09 10/22/17 11:10 10/22/17 12:00 Temperature 98.4 F Pulse Rate 81 78 Respiratory Rate 20 17 16 Blood Pressure 172/77 H Pulse Oximetry 100 99 10/22/17 14:00 10/22/17 16:00 10/22/17 16:01 Temperature 98.1 F Pulse Rate 81 79 78 Respiratory Rate 17 21 Blood Pressure 150/66 H Pulse Oximetry 99 99 10/22/17 18:00 10/22/17 20:00 10/22/17 22:00 Temperature 97.7 F Pulse Rate 77 78 78 Respiratory Rate 18 Blood Pressure 127/72 Pulse Oximetry 99 10/22/17 23:38 10/23/17 00:00 10/23/17 02:00 Temperature 97.7 F Pulse Rate 79 78 76 Respiratory Rate 19 16 Blood Pressure 163/80 H Pulse Oximetry 99 99 10/23/17 03:41 10/23/17 04:00 10/23/17 06:00 Temperature 98.0 F Pulse Rate 81 82 80 Respiratory Rate 17 19 Blood Pressure 175/82 H Pulse Oximetry 99 99 10/23/17 06:54 Temperature Pulse Rate 82 Respiratory Rate 18 Blood Pressure Pulse Oximetry Intake & Output 10/22/17 10/22/17 10/23/17 06:59 18:59 06:59 Intake Total 650 / 650 839.0 / 839.0 781.0 / 781.0 Output Total 2220 / 2220 1925 / 1925 2200 / 2200 Balance -1570 / -1570 -1086.0 / -1086.0 -1419.0 / -1419.0 Weight 132.3 kg 128.1 kg Intake: IV 650 / 650 839.0 / 839.0 451.0 / 451.0 Lasix Inj 100 MG In NS Inj 90 100 / 100 100 / 100 ML @ 5 mls/hr IV.CONT .Q20H GUICHO Rx#:[id number] Diprivan 1000 mg/100 ml Inj 1, 300 / 300 176.5 / 176.5 251.0 / 251.0 000 mg In 100 ml @ 5 MCG/KG/MIN 4.452 mls/hr IV.CONT TITRATE PRN Rx#:[id number] Flexbumin 25% Inj 100 ML @ 60 100 / 100 100 / 100 mls/hr IV.SIG Q12H GUICHO Rx#: [id number] Buminate 5% Inj 250 ML @ 250 250 / 250 mls/hr IV.SIG Q8H GUICHO Rx#: [id number] Azactam Inj 1,000 MG In NS Inj 300 / 300 100 ML @ 200 mls/hr IV.SIG Q8H GUICHO Rx#:[id number] Vancomycin Inj 1,250 MG In NS 262.5 / 262.5 Inj 250 ML @ 250 mls/hr IV.SIG Q24H GUICHO Rx#:[id number] Tube Feeding 330 / 330 Output: Stool 0 / 0 Urine Amount (Catheter) 0 / 2200 1924 / 192 2200 / 2200 Indwelling Urethral Catheter 2199 / 2200 1924 / 192 2200 / 2200 Gastric Drainage 20 / 20 Oral Orogastric Tube 20 / 20 Other: Date of Last Bowel Movement 10/13/17 # Bowel Movements 0 Result Diagrams: 10/23/17 05:20 10/22/17 04:30 Objective Remarks: GENERAL: A 62-year-old female, sedated. Intubated HEAD: Atraumatic, normocephalic. BERE. ENT: Orotracheally intubated NECK: Supple. Trachea in the midline. CARDIOVASCULAR: Regular rate and rhythm. Normal S1, S2. No murmurs, rubs or gallops noted. Neck veins not visible. PULMONARY: Bilateral equal air entry, diminished in the bases. Mild inspiratory wheezes. PRVC ABDOMEN: Soft, obese, nontender, nondistended. [place] edema involving the lower abdomen EXTREMITIES: No cyanosis, clubbing, cracked skin on lower extremities with wrinkling of feet now. NEUROLOGIC: Intubated heavily sedated moves extremities spontaneously. Opens eyes on turning Assessment and Plan - Assessment and Plan Plan: IMPRESSION: Acute hypercapnic and hypoxemic respiratory failure. Upper airway obstruction/stridor Congestive heart failure Acute exacerbation of chronic obstructive pulmonary disease. Gram-positive bacteremia. Urinary tract infection. Bilateral lower extremity cellulitis. Anemia. Poorly controlled hypertension Obstructive sleep apnea/morbid obesity. History of congestive heart failure. History of hypertension. History of diabetes mellitus. Peripheral arterial disease. Hyperlipidemia. Fluid overload. RECOMMENDATIONS: 1. Monitor neuro status closely and currently sedated for vent synchrony, minimize sedation. Daily sedation medication 2. Reintubated 10/21/2017 for stridor. PRVC ventilatory mode. PEEP 5. Initiate CPAP trials, check cuff leak 3. Bronchodilators. DuoNeb every 4 hours and every 2 hours as needed for shortness of breath. 4. Decadron 4 mg IV every 6 hours 5. Discontinued lisinopril due to hyperkalemia. 6. 2-D echo to evaluate ventricular function. 7. Monitor renal function, I's and O's and avoid nephrotoxins. Electrolyte replacement per protocol. Lasix 5 mg/h. Diamox 500 mg IV x2 8. Nasogastric tube for GI decompression. Tube feeds. Glucerna 1.5. 9. Continue with antibiotics per ID. (Vancomycin and Azactam). Blood culture from 10/14/2017 showed gram-positive cocci in 2/4 bottles. Urine cx 10/14/2017 showed Lactobacillus species. Wound culture from lower extremity showed Staphylococcus aureus and Pseudomonas 10. Sliding scale insulin with Accu-Cheks for glycemic control. Increased Levemir to 15 units every 12 on 10/22. Increase to 22 q12, on 10/23 11. Monitor CBC. 12. Gastrointestinal prophylaxis with Protonix and deep vein thrombosis prophylaxis with heparin subcutaneously. 13. Hydralazine 100 mg p.o. 3 times daily. Increase Coreg to 12.5 BID Overall impression: Patient remains critically ill. She required reintubation for stridor but diffusion capacity is much improved. She had profound fluid overload with diffuse bilateral lung infiltrates and pulmonary venous congestion. Our ultimate goal is to find an ideal body weight for this individual and ask her to adjust her diuretic use to maintain this weight. Diuresis increased with adding Diamox. Blood glucose and hypertension remains inadequately controlled, medications increased CCT 35 MIN Code Status: Full
[2017-10-23 08:20] LABS: Albumin 3.2 g/dL (3.4-5.0); Anion Gap 6 meq/L (5-15); Aspartate Aminotransferase 18 U/L (15-37); Blood Urea Nitrogen 48 mg/dL (7-18); Calcium 8.7 mg/dL (8.5-10.1); Carbon Dioxide 38.3 meq/L (21.0-32.0); Chloride 101 meq/L (98-107); Glomerular Filtration Rate 60 mL/min (>89); Glucose,Random 266 mg/dL (74-106); Potassium 3.9 meq/L (3.5-5.1); Sodium 145 meq/L (136-145)
[2017-10-23 08:24] LABS: Alanine Aminotransferase 16 U/L (10-53); Alkaline Phosphatase 132 U/L (45-117); Total Protein 6.9 g/dL (6.4-8.2)
[2017-10-23] MEDS: Gabapentin 300 MG Capsule PO SCH ×3 (08:52→17:54)
[2017-10-23] MEDS: Carvedilol 12.5 MG Tablet PO SCH ×2 (08:52→20:10)
[2017-10-23] MEDS: Chlorhexidine 0.12% Oral Kit 15 ML UDC OROPHARYNG SCH ×2 (08:52→20:10)
[2017-10-23] MEDS: Insulin Detemir Inj 1,000 UNIT/10 ML Vial SQ SCH ×2 (08:53→20:08)
[2017-10-23] MEDS: Nystatin 100,000 UNITS/GM Powder 15 GM Bottle TOPICAL SCH ×4 (09:28→20:15)
[2017-10-23] MEDS: Pantoprazole Sodium 20 MG DR Tablet PO SCH (09:29)
[2017-10-23] MEDS: Budesonide-Formoterol 160/4.5 MCG 6 GM Inhaler INH SCH ×2 (09:29→20:34)
[2017-10-23] MEDS: Albumin Human 25% Inj 100 ML IV.SIG SCH ×2 (09:30→22:55)
[2017-10-23] MEDS ORDERED: Pharmacy Ordered Lab Info OTHER ONE (13:45)
[2017-10-23] MEDS: Vancomycin Inj 1,250 MG in Sodium Chlor 0.9% Inj 250 ML IV.SIG SCH (13:54)
[2017-10-23] MEDS ORDERED: RESP: Racemic Epinephrine 2.25% 0.5 ML Neb ONE ×2 (14:36→15:55)
[2017-10-23 15:26] LABS: Albumin 3.3 g/dL (3.4-5.0); Anion Gap 7 meq/L (5-15); Aspartate Aminotransferase 16 U/L (15-37); Blood Urea Nitrogen 47 mg/dL (7-18); Calcium 8.7 mg/dL (8.5-10.1); Carbon Dioxide 37.6 meq/L (21.0-32.0); Chloride 101 meq/L (98-107); Glomerular Filtration Rate 61 mL/min (>89); Glucose,Random 241 mg/dL (74-106); Magnesium 2.3 mg/dL (1.5-2.5); Potassium 3.4 meq/L (3.5-5.1); Sodium 146 meq/L (136-145)
[2017-10-23 15:29] LABS: Alanine Aminotransferase 16 U/L (10-53); Alkaline Phosphatase 129 U/L (45-117); Total Protein 7.1 g/dL (6.4-8.2); Vancomycin,Trough 15.8 mcg/mL (5.0-10.0)
[2017-10-23] MEDS ORDERED: Dexamethasone Inj 20 MG/5 ML Vial IV.PUSH ONE (16:45)
[2017-10-23] MEDS: niCARdipine Inj 25 MG in Sodium Chlor 0.9% Inj 240 ML IV.CONT PRN ×2 (17:52→23:10)
--- NOTE | 2017-10-23 18:34 | P.PNID ---
Subjective Remarks: extubated but not doing great On BIPAP afebrile no new issues Antibiotics: vanco azactam Allergies/Adverse Reactions: Allergies codeine Allergy (Intermediate, Verified 10/14/17 18:32) rash penicillin G Allergy (Intermediate, Verified 10/14/17 18:32) RASH,FEVER, SEIZURE *MDRO Multi-Drug Resistant Organism Adverse Reaction (Unknown, Uncoded 09/16/17 20:28) Cleared 04/25/16 MRSA (leg wound) 04/2015 MRSA PCR screen NEGATIVE - 03/26/16 & 04/25/16 Cleared per Infection Control Objective Vital Signs 10/22/17 20:00 10/22/17 22:00 10/22/17 23:38 Temperature 97.7 F Pulse Rate 78 78 79 Respiratory Rate 18 19 Blood Pressure 127/72 Pulse Oximetry 99 99 10/23/17 00:00 10/23/17 02:00 10/23/17 03:41 Temperature 97.7 F Pulse Rate 78 76 81 Respiratory Rate 16 17 Blood Pressure 163/80 H Pulse Oximetry 99 99 10/23/17 04:00 10/23/17 06:00 10/23/17 06:54 Temperature 98.0 F Pulse Rate 82 80 82 Respiratory Rate 19 18 Blood Pressure 175/82 H Pulse Oximetry 99 10/23/17 08:00 10/23/17 08:28 10/23/17 10:00 Temperature 98.5 F Pulse Rate 85 94 H Respiratory Rate 20 15 Blood Pressure 173/78 H Pulse Oximetry 100 100 10/23/17 11:50 10/23/17 11:51 10/23/17 12:00 Temperature 98.3 F Pulse Rate 85 83 Respiratory Rate 15 15 18 Blood Pressure 153/76 H Pulse Oximetry 99 98 10/23/17 14:00 10/23/17 15:05 10/23/17 15:22 Temperature Pulse Rate 81 85 Respiratory Rate 24 Blood Pressure Pulse Oximetry 95 10/23/17 15:24 10/23/17 15:59 10/23/17 16:00 Temperature 98.3 F Pulse Rate 85 90 91 H Respiratory Rate 24 18 16 Blood Pressure 165/82 H Pulse Oximetry 100 10/23/17 16:10 10/23/17 18:00 Temperature Pulse Rate 85 Respiratory Rate Blood Pressure Pulse Oximetry 100 Intake & Output 08/10/23/17 10/23/17 18:59 06:59 18:59 Intake Total 839.0 / 839.0 881.0 / 881.0 862.5 / 862.5 Output Total 19240 / 220 1500 / 1500 Balance -1086.0 / -1086.0 -1319.0 / -1319.0 -637.5 / -637.5 Weight 128.1 kg 145.1 kg Intake: IV 839.0 / 839.0 551.0 / 551.0 562.5 / 562.5 Lasix Inj 100 MG In NS Inj 90 100 / 100 ML @ 5 mls/hr IV.CONT .Q20H GUICHO Rx#:[id number] Diprivan 1000 mg/100 ml Inj 1, 176.5 / 176.5 251.0 / 251.0 100 / 100 000 mg In 100 ml @ 5 MCG/KG/MIN 4.452 mls/hr IV.CONT TITRATE PRN Rx#:[id number] Flexbumin 25% Inj 100 ML @ 60 100 / 100 100 / 100 100 / 100 mls/hr IV.SIG Q12H GUICHO Rx#: [id number] Azactam Inj 1,000 MG In NS Inj 300 / 300 100 / 100 100 / 100 100 ML @ 200 mls/hr IV.SIG Q8H GUICHO Rx#:[id number] Vancomycin Inj 1,250 MG In NS 262.5 / 262.5 262.5 / 262.5 Inj 250 ML @ 250 mls/hr IV.SIG Q24H GUICHO Rx#:[id number] Tube Feeding 330 / 330 180 / 180 Tube Irrigant 120 / 120 Output: Stool 0 / 0 Urine Amount (Catheter) 19240 / 2200 1500 / 1500 Indwelling Urethral Catheter 19240 / 2200 1500 / 1500 Other: Date of Last Bowel Movement 10/13/17 # Bowel Movements 0 0 10/23/17 08:30 Sputum - Endotracheal Gram Stain - Final 10/23/17 08:30 Sputum - Endotracheal Sputum Culture - Pending 10/17/17 16:49 Blood - Peripheral Aerobic Blood Culture - Final No growth in 5 days 10/17/17 16:49 Blood - Peripheral Anaerobic Blood Culture - Final No growth in 5 days 10/17/17 16:54 Blood - Peripheral Aerobic Blood Culture - Final No growth in 5 days 10/17/17 16:54 Blood - Peripheral Anaerobic Blood Culture - Final No growth in 5 days Lab - Hematology Results 10/22/17 10/23/17 10:32 05:20 WBC 5.7 6.6 RBC 4.17 4.30 Hgb 9.3 L 9.8 L Hct 30.7 L 31.7 L MCV 73.7 L 73.7 L MCH 22.4 L 22.7 L MCHC 30.4 L 30.8 L RDW 18.8 H 18.8 H Plt Count 274 264 MPV 8.3 8.2 Lab - Chemistry Results 10/21/17 10/22/17 10/22/17 19:55 01:57 04:30 Sodium 146 H Potassium 4.0 D Chloride 102 Carbon Dioxide 36.3 H Anion Gap 8 BUN 49 H Creatinine 1.02 H Estimated GFR 55 L POC Glucose 265 H 232 H Random Glucose 240 H Calcium 9.0 Phosphorus 3.8 Magnesium 2.3 Total Bilirubin AST ALT Alkaline Phosphatase Total Protein Albumin 10/22/17 10/22/17 10/22/17 07:50 13:29 20:19 Sodium Potassium Chloride Carbon Dioxide Anion Gap BUN Creatinine Estimated GFR POC Glucose 259 H 193 H 226 H Random Glucose Calcium Phosphorus Magnesium Total Bilirubin AST ALT Alkaline Phosphatase Total Protein Albumin 10/23/17 10/23/17 10/23/17 02:03 07:50 11:19 Sodium 145 Potassium 3.9 Chloride 101 Carbon Dioxide 38.3 H Anion Gap 6 BUN 48 H Creatinine 0.95 Estimated GFR 60 L POC Glucose 251 H 244 H Random Glucose 266 H Calcium 8.7 Phosphorus Magnesium Total Bilirubin 0.5 AST 18 ALT 16 Alkaline Phosphatase 132 H Total Protein 6.9 Albumin 3.2 L 10/23/17 13:55 Sodium 146 H Potassium 3.4 L Chloride 101 Carbon Dioxide 37.6 H Anion Gap 7 BUN 47 H Creatinine 0.93 Estimated GFR 61 L POC Glucose Random Glucose 241 H Calcium 8.7 Phosphorus Magnesium 2.3 Total Bilirubin 0.4 AST 16 ALT 16 Alkaline Phosphatase 129 H Total Protein 7.1 Albumin 3.3 L Imaging: ITS Impressions Chest X-Ray 10/23/17 06:00 CONCLUSION: Cardiomegaly with bilateral perihilar and bibasilar densities. Physical Exam: GENERAL: Sedated intubated on partial facce BIPAP mask SKIN: Warm and dry. edema erythema and draining wounds on BLE markedly improved. anasarca persists HEAD: Atraumatic. Normocephalic. EYES: Pupils equal and round. No scleral icterus. No injection or drainage. ENT: No nasal bleeding or discharge. Mucous membranes pink and moist. NECK: Trachea midline. No JVD. CARDIOVASCULAR: Regular rate and rhythm. RESPIRATORY: No accessory muscle use. Clear to auscultation. Breath sounds equal bilaterally. GASTROINTESTINAL: Abdomen soft, non-tender, distended. Hepatic and splenic margins not palpable. Anasarca , tigjht edema of abdominal wall MUSCULOSKELETAL: Extremities without clubbing, cyanosis, much impproved edema with prominent tree bark krueger. No obvious deformities. NEUROLOGICAL: sedated PSYCHIATRIC: unabl e to assess Assessment and Plan - Plan Morbid obesity chronic venostasis BLE cellulits and infected wounds Micrococcus bacteremia - proabbly from the cellulits - not sustained - 2/2 sets positive UA with too many sq epi cells to reliably inteprete cont vancomycin x 2 weeks from 1st neg blood clx cont azactam 2 D echo fu repeat BC fu P sputum dw RN poly Bueno
[2017-10-24] MEDS: Oral Hygiene Kit OROPHARYNG SCH ×4 (00:11→17:57)
[2017-10-24] MEDS: Insulin NovoLOG Aspart Correctional Sugar Inj SQ SCH ×4 (02:13→21:03)
[2017-10-24] MEDS: niCARdipine Inj 25 MG in Sodium Chlor 0.9% Inj 240 ML IV.CONT PRN (03:56)
--- NOTE | 2017-10-24 04:14 | XR ---
EXAM DATE: 10/24/2017 4:04 AM EDT AGE/SEX: 62 years / Female INDICATIONS: Short of breath. CLINICAL DATA: This is the patient's subsequent encounter. Patient reports that signs and symptoms h ave been present for 1 week and indicates a pain score of 5/10. MEDICAL/SURGICAL HISTORY: Diabetes mellitus type II. Congestive heart failure. Hypercholestero lemia. Coronary artery disease. Hypertension. COPD. Coronary artery stent. Pacemaker. COMPARISON: [facility], CHEST 1V SINGLE AP, 10/23/2017. . FINDINGS: The NG tube and right subclavian line are well placed. There is a pacing device seen in the left ches t. The cardiac silhouette is enlarged. There is diffuse increased density throughout the lungs being worse at the bases with some silhouetting of the hemidiaphragms. CONCLUSION: Diffuse increased parenchymal markings likely related to edema. Further increased density at the bases likely related to consolidation or effusions at the bases. Cardiomegaly. Electronically signed by: Myles Galvan MD 10/24/2017 4:12 AM EDT
[2017-10-24] MEDS: Heparin - SQ 10,000 UNITS/ML Vial SQ SCH ×3 (05:12→21:04)
[2017-10-24 06:16] LABS: Albumin 3.3 g/dL (3.4-5.0); Anion Gap 7 meq/L (5-15); Aspartate Aminotransferase 17 U/L (15-37); Blood Urea Nitrogen 51 mg/dL (7-18); Calcium 8.7 mg/dL (8.5-10.1); Carbon Dioxide 37.2 meq/L (21.0-32.0); Chloride 102 meq/L (98-107); Glomerular Filtration Rate 63 mL/min (>89); Glucose,Random 213 mg/dL (74-106); Potassium 3.3 meq/L (3.5-5.1); Sodium 146 meq/L (136-145)
[2017-10-24 06:17] LABS: Alanine Aminotransferase 14 U/L (10-53)
[2017-10-24 06:20] LABS: Alkaline Phosphatase 128 U/L (45-117); Total Protein 6.9 g/dL (6.4-8.2)
--- NOTE | 2017-10-24 07:21 | P.PNCC ---
Subjective Subjective Remarks/Hospital Course: The patient is a 62-year-old female with past medical history of diabetes mellitus, COPD on 2 liters nasal cannula, obstructive sleep apnea on CPAP at home, however, she is not using it; hypertension, hyperlipidemia, CHF with pacemaker placement. She presented to [facility] ED with edema and swelling of lower extremity and shortness of breath. The patient was admitted under Hospitalist Service and was seen by Infectious Disease Service. She is currently being treated for a urinary tract infection, gram-positive bacteremia. In addition, she had a wound culture from her leg positive for Pseudomonas species and Staphylococcus aureus. Chest x-ray from this morning showed increased pulmonary vascularity. She had an ABG on 2 liters at 8:42 which showed acute hypercapnic respiratory acidosis with a pH of 7.24, CO2 72, PaO2 84, bicarbonate of 30, and saturation 93%. She was subsequently placed on BiPAP 22/10 with 30% FiO2. Due to lethargy and respiratory distress, Critical Care Medicine was consulted. When seen, the patient able to respond to questions appropriately; however, she dozes off and falls back to sleep. 10/18: Patient persists with severe lower body edema and associated cutaneous wounds. She has developed azotemia with earlier attempts at diuresis but at this point she will not resolve her skin wounds without sign fluid removal. We will attempt a continuous infusion Lasix drip to see if we can get a more gingerly diuresis and avoid the dramatic intravascular volume changes. She remains ventilator dependent. 10/19: We have finally shifted into predictable negative fluid balance. Renal function remains acceptable despite very aggressive diuretic therapy. The next few days will tell us if this is largely extravascular water or there is a component of lymphedema. 10/20: Continued 3 L diuresis daily. Creatinine has declined to 1.0, BU and acceptable at 44. Will add intermittent albumin infusion and continue loop diuretic continuous infusion. Persistent hypertension will require additional oral agents. Convert tube feeds to Glucerna 1.5 and add Levemir twice daily as a basal source of insulin. 10/21: Diurses continues with mild azotemia. Edema considerably resolved. Extubation attempted with good as exchange but upper airway stridor required reintubation. 10/22: Patient required reintubation yesterday for started. Currently intubated sedated. Continues to have excellent diuresis 2.6 L in 24 hours, continues to lose weight. Achieving negative balance. Edema resolving 10/23: Remains intubated sedated. Urine output remains excellent on Lasix drip 4 L in 24 hours. However increased predominantly inspiratory wheezing noted today. Chest x-ray slightly increased pulmonary vascular congestion, perihilar infiltrates. Will give 1 dose of Diamox 10/24: Patient was extubated yesterday. Approximately after 2 hours developed some upper airway obstruction/stridor. Additional IV Decadron given and racemic epinephrine 2 followed by BiPAP with improvement in stridor. Currently remains on BiPAP intermittently desaturates when the BiPAP mask is removed. No stridor observed. Chest x-ray shows pulmonary edema pattern. Add Diamox 500 mg IV for 3 days. Continue Bumex infusion Objective Vital Signs / I&O: Vital Signs 10/23/17 08:00 10/23/17 08:28 10/23/17 10:00 Temperature 98.5 F Pulse Rate 85 94 H Respiratory Rate 20 15 Blood Pressure 173/78 H Pulse Oximetry 100 100 10/23/17 11:50 10/23/17 11:51 10/23/17 12:00 Temperature 98.3 F Pulse Rate 85 83 Respiratory Rate 15 15 18 Blood Pressure 153/76 H Pulse Oximetry 99 98 10/23/17 14:00 10/23/17 15:05 10/23/17 15:22 Temperature Pulse Rate 81 85 Respiratory Rate 24 Blood Pressure Pulse Oximetry 95 10/23/17 15:24 10/23/17 15:59 10/23/17 16:00 Temperature 98.3 F Pulse Rate 85 90 91 H Respiratory Rate 24 18 16 Blood Pressure 165/82 H Pulse Oximetry 100 10/23/17 16:10 10/23/17 18:00 10/23/17 20:00 Temperature 98.5 F Pulse Rate 85 84 Respiratory Rate 10 L Blood Pressure 141/62 H Pulse Oximetry 100 100 10/23/17 20:44 10/23/17 22:00 10/23/17 23:48 Temperature Pulse Rate 101 H 88 86 Respiratory Rate 16 17 Blood Pressure Pulse Oximetry 100 100 10/24/17 00:00 10/24/17 02:00 10/24/17 03:29 Temperature 98.1 F Pulse Rate 94 H 82 84 Respiratory Rate 18 15 Blood Pressure 159/70 H Pulse Oximetry 100 99 10/24/17 04:00 10/24/17 06:00 Temperature 97.9 F Pulse Rate 80 82 Respiratory Rate 10 L Blood Pressure 135/62 Pulse Oximetry 100 Intake & Output 10/23/17 10/24/17 10/24/17 18:59 06:59 18:59 Intake Total 962.5 / 962.5 800 / 800 Output Total 1500 / 1500 1350 / 1350 Balance -537.5 / -537.5 -550 / -550 Weight 145.1 kg 127.2 kg Intake: IV 662.5 / 662.5 800 / 800 Lasix Inj 100 MG In NS Inj 90 100 / 100 ML @ 5 mls/hr IV.CONT .Q20H GUICHO Rx#:[id number] Diprivan 1000 mg/100 ml Inj 1, 100 / 100 000 mg In 100 ml @ 5 MCG/KG/MIN 4.452 mls/hr IV.CONT TITRATE PRN Rx#:[id number] Cardene Inj 25 MG In NS Inj 240 500 / 500 ML @ 5 MG/HR 50 mls/hr IV.CONT TITRATE PRN Rx#:[id number] Flexbumin 25% Inj 100 ML @ 60 100 / 100 100 / 100 mls/hr IV.SIG Q12H GUICHO Rx#: [id number] Azactam Inj 1,000 MG In NS Inj 200 / 200 100 / 100 100 ML @ 200 mls/hr IV.SIG Q8H GUICHO Rx#:[id number] Vancomycin Inj 1,250 MG In NS 262.5 / 262.5 Inj 250 ML @ 250 mls/hr IV.SIG Q24H GUICHO Rx#:[id number] Tube Feeding 180 / 180 Tube Irrigant 120 / 120 Output: Stool 0 / 0 Urine Amount (Catheter) 1500 / 1500 1350 / 1350 Indwelling Urethral Catheter 1500 / 1500 1350 / 1350 Other: Date of Last Bowel Movement 10/13/17 10/13/17 # Bowel Movements 0 Result Diagrams: 10/23/17 05:20 10/24/17 05:30 Objective Remarks: GENERAL: A 62-year-old female, remains on BiPAP HEAD: Atraumatic, normocephalic. BERE. ENT:BiPAP mask in place NECK: Supple. Trachea in the midline. No stridor today CARDIOVASCULAR: Regular rate and rhythm. Normal S1, S2. No murmurs, rubs or gallops noted. Neck veins not visible. PULMONARY: Bilateral equal air entry, diminished in the bases. Mild inspiratory wheezes. On BiPAP ABDOMEN: Soft, obese, nontender, nondistended. Hamilton edema involving the lower abdomen EXTREMITIES: Cracked skin on lower extremities with wrinkling of feet. NEUROLOGIC: Patient is alert awake. BiPAP mask limits neuro exam. Able to communicate follows commands 4 Assessment and Plan - Assessment and Plan Plan: IMPRESSION: Acute hypercapnic and hypoxemic respiratory failure. Upper airway obstruction/stridor Congestive heart failure Acute exacerbation of chronic obstructive pulmonary disease. Gram-positive bacteremia/Micrococcus. Urinary tract infection. Bilateral lower extremity cellulitis. Anemia. Poorly controlled hypertension Obstructive sleep apnea/morbid obesity. History of congestive heart failure. History of hypertension. History of diabetes mellitus. Peripheral arterial disease. Hyperlipidemia. Fluid overload. RECOMMENDATIONS: 1. Monitor neuro status closely and currently off all sedation 2. Reintubated 10/21/2017 for stridor. Extubated 10/23. Post extubation stridor again, improved with IV Decadron, racemic epinephrine, BiPAP 3. Bronchodilators. DuoNeb every 4 hours and every 2 hours as needed for shortness of breath. 4. Decadron 4 mg IV every 6 hours 5. Discontinued lisinopril due to hyperkalemia. 6. 2-D echo to evaluate ventricular function, pending. 7. Monitor renal function, I's and O's and avoid nephrotoxins. Electrolyte replacement per protocol. Lasix 5 mg/h. Diamox 500 mg IV x4 doses 8. Nasogastric tube for GI decompression. Resume tube feeds in 24 hours. Glucerna 1.5. 9. Continue with antibiotics per ID. (Vancomycin and Azactam). Blood culture from 10/14/2017 showed micrococcus species in 2/4 bottles. Urine cx 10/14/2017 showed Lactobacillus species. Wound culture from lower extremity showed Staph aureus, Klebsiella and Pseudomonas 10. Sliding scale insulin with Accu-Cheks for glycemic control. Increased Levemir to 15 units every 12 on 10/22. Increase to 22 q12, on 10/23 11. Monitor CBC. 12. Gastrointestinal prophylaxis with Protonix and deep vein thrombosis prophylaxis with heparin subcutaneously. 13. Hydralazine 100 mg p.o. 3 times daily. Coreg to 12.5 BID Overall impression: Patient remains critically ill. She required reintubation for stridor 10/21 but diffusion capacity is much improved. 10/23/2017 she was extubated again developed stridor but improved with BiPAP and racemic epinephrine. However patient remains critically ill with risk of acute decompensation and need for possible reintubation. Despite aggressive diuresis patient still shows evidence of pulmonary edema. 2D echo is pending. Diuresis increased with adding Diamox. Blood glucose and hypertension remains inadequately controlled, medications increased CCT 35 MIN
[2017-10-24] MEDS: Carvedilol 12.5 MG Tablet PO SCH ×2 (08:47→20:41)
[2017-10-24] MEDS: Gabapentin 300 MG Capsule PO SCH ×3 (08:47→17:56)
[2017-10-24] MEDS: Insulin Detemir Inj 1,000 UNIT/10 ML Vial SQ SCH ×2 (08:49→20:48)
[2017-10-24] MEDS: Albumin Human 25% Inj 100 ML IV.SIG SCH (10:57)
[2017-10-24] MEDS: Chlorhexidine 0.12% Oral Kit 15 ML UDC OROPHARYNG SCH ×2 (13:24→20:52)
[2017-10-24] MEDS: Nystatin 100,000 UNITS/GM Powder 15 GM Bottle TOPICAL SCH ×2 (13:24→17:58)
[2017-10-24] MEDS: Pantoprazole Sodium 20 MG DR Tablet PO SCH (13:24)
[2017-10-24] MEDS: Budesonide-Formoterol 160/4.5 MCG 6 GM Inhaler INH SCH ×2 (13:25→20:51)
[2017-10-24] MEDS: Vancomycin Inj 1,250 MG in Sodium Chlor 0.9% Inj 250 ML IV.SIG SCH (13:33)
--- NOTE | 2017-10-24 17:55 | ECHRPT ---
Indication: HEART FAILURE CONCLUSIONS The left ventricular systolic function is moderately reduced with an estimated ejection fraction in the range of 35-40%. Normal left ventricular size. Wall thickness is normal. No regional wall motion abnormalities are present. A pacemaker wire is noted. The right ventricle is mildly dilated. The interatrial septum bowed from right to left, consistent with increased right atrial pressure Trace mitral valve regurgitation. There is trace tricuspid valve regurgitation. The estimated pulmonary arterial pressure is 54 mmHg. BP: / HR: Rhythm: Sinus MEASUREMENTS (Male / Female) Normal Values Technical Quality:Technically difficult study 2D ECHO LV Diastolic Diameter PLAX 5.9 cm 4.2 - 5.9 / 3.9 - 5.3 cm LV Systolic Diameter PLAX 5.1 cm IVS Diastolic Thickness 1.1 cm 0.6 - 1.0 / 0.6 - 0.9 cm LVPW Diastolic Thickness 1.1 cm 0.6 - 1.0 / 0.6 - 0.9 cm LV Relative Wall Thickness 0.4 LVOT Diameter 1.7 cm LA Systolic Diameter LX 4.0 cm 3.0 - 4.0 / 2.7 - 3.8 cm LV Ejection Fraction MOD 4C 43.2 % LV Ejection Fraction 4C AL 42.8 % M-MODE Aortic Root Diameter MM 2.5 cm LA Systolic Diameter MM 4.0 cm LA Ao Ratio MM 1.6 AV Cusp Separation MM 1.9 cm DOPPLER AV Peak Velocity 164.0 cm/s AV Peak Gradient 10.8 mmHg LVOT Peak Velocity 108.0 cm/s LVOT Peak Gradient 4.7 mmHg AV Area Cont Eq pk 1.5 cm MV Area PHT 3.9 cm Mitral E Point Velocity 136.0 cm/s Mitral A Point Velocity 102.0 cm/s Mitral E to A Ratio 1.3 LV E' Lateral Velocity 4.9 cm/s Mitral E to LV E' Lateral Ratio 27.9 LV E' Septal Velocity 4.8 cm/s Mitral E to LV E' Septal Ratio 28.5 TR Peak Velocity 331.0 cm/s TR Peak Gradient 43.8 mmHg Right Atrial Pressure 10.0 mmHg Pulmonary Artery Systolic Pressu 53.8 mmHg Right Ventricular Systolic Press 53.8 mmHg PV Peak Velocity 106.0 cm/s PV Peak Gradient 4.5 mmHg FINDINGS LEFT VENTRICLE The left ventricular systolic function is moderately reduced with an estimated ejection fraction in the range of 35-40%. Normal left ventricular size. Wall thickness is normal. No regional wall motion abnormalities are present. RIGHT VENTRICLE A pacemaker wire is noted. The right ventricle is mildly dilated. LEFT ATRIUM The left atrial size is normal. RIGHT ATRIUM There is a pacemaker wire present in the right atrial cavity. ATRIAL SEPTUM The interatrial septum bowed from right to left, consistent with increased right atrial pressure AORTA The aortic root and proximal ascending aorta are normal in size on limited imaging. MITRAL VALVE Structurally normal mitral valve. Trace mitral valve regurgitation. AORTIC VALVE Trileaflet aortic valve. No aortic valve stenosis or regurgitation. TRICUSPID VALVE Structurally normal tricuspid valve. There is trace tricuspid valve regurgitation. The estimated pulmonary arterial pressure is 53.8 mmHg. PULMONARY VALVE No pulmonary valve regurgitation or stenosis. VESSELS The inferior vena cava is normal in size. PERICARDIUM No pericardial effusion. Joselin Valente MD, FACC (Electronically Signed) Final Date:24 October 2017 17:54
[2017-10-24] MEDS: Furosemide Inj 100 MG in Sodium Chlor 0.9% Inj 90 ML IV.CONT SCH (17:57)
[2017-10-25] MEDS: Oral Hygiene Kit OROPHARYNG SCH ×4 (00:28→16:27)
[2017-10-25] MEDS: Nystatin 100,000 UNITS/GM Powder 15 GM Bottle TOPICAL SCH ×5 (00:28→20:28)
[2017-10-25] MEDS: Insulin NovoLOG Aspart Correctional Sugar Inj SQ SCH ×4 (02:35→20:26)
[2017-10-25] MEDS: Heparin - SQ 10,000 UNITS/ML Vial SQ SCH ×3 (05:12→21:54)
[2017-10-25 05:46] LABS: Hemoglobin 9.1 gm/dL (11.6-15.3); Mean Corpuscular Hemoglobin 22.1 pg (27.0-34.0); Mean Corpuscular Volume 75.2 fL (80.0-100.0); Mean Platelet Volume 8.8 fL (7.0-11.0); Platelet Count 211 th/mm3 (150-450); Red Blood Count 4.13 mil/mm3 (4.00-5.30); Red Cell Distribution Width 18.8 % (11.6-17.2); White Blood Count 8.5 th/mm3 (4.0-11.0)
[2017-10-25 05:51] LABS: Mean Corpuscular HGB Conc 29.3 % (32.0-36.0)
[2017-10-25 06:18] LABS: Albumin 3.2 g/dL (3.4-5.0); Anion Gap 4 meq/L (5-15); Aspartate Aminotransferase 18 U/L (15-37); Blood Urea Nitrogen 44 mg/dL (7-18); Chloride 103 meq/L (98-107); Glomerular Filtration Rate 72 mL/min (>89); Glucose,Random 262 mg/dL (74-106); Potassium 3.6 meq/L (3.5-5.1); Sodium 145 meq/L (136-145)
[2017-10-25 06:19] LABS: Alanine Aminotransferase 14 U/L (10-53)
[2017-10-25 06:21] LABS: Alkaline Phosphatase 123 U/L (45-117)
--- NOTE | 2017-10-25 06:55 | XR ---
EXAM DATE: 10/25/2017 6:46 AM EDT AGE/SEX: 62 years / Female INDICATIONS: Shortness of breath. Possible respiratory disease. CLINICAL DATA: This is the patient's subsequent encounter. Patient reports that signs and symptoms h ave been present for 1 week and indicates a pain score of Nonresponsive. MEDICAL/SURGICAL HISTORY: . Diabetes mellitus type II. Congestive heart failure. Hypercholester olemia. Coronary artery disease. Hypertension. COPD. . Coronary artery stent. Pacemaker. COMPARISON: [facility] [place] CHEST 1V SINGLE AP, 10/24/2017. . FINDINGS: There is a pacing device seen in the left chest. There is a right subclavian line in good position. T he heart size is enlarged. There is mild increased interstitial and alveolar density. The aeration of the lungs appears to be improving. CONCLUSION: Cardiomegaly. Persistent but improving mild interstitial and alveolar density likely related to improving edema. Electronically signed by: Myles Galvan MD 10/25/2017 6:54 AM EDT
--- NOTE | 2017-10-25 08:46 | P.PNCC ---
Subjective Subjective Remarks/Hospital Course: The patient is a 62-year-old female with past medical history of diabetes mellitus, COPD on 2 liters nasal cannula, obstructive sleep apnea on CPAP at home, however, she is not using it; hypertension, hyperlipidemia, CHF with pacemaker placement. She presented to [facility] ED with edema and swelling of lower extremity and shortness of breath. The patient was admitted under Hospitalist Service and was seen by Infectious Disease Service. She is currently being treated for a urinary tract infection, gram-positive bacteremia. In addition, she had a wound culture from her leg positive for Pseudomonas species and Staphylococcus aureus. Chest x-ray from this morning showed increased pulmonary vascularity. She had an ABG on 2 liters at 8:42 which showed acute hypercapnic respiratory acidosis with a pH of 7.24, CO2 72, PaO2 84, bicarbonate of 30, and saturation 93%. She was subsequently placed on BiPAP 22/10 with 30% FiO2. Due to lethargy and respiratory distress, Critical Care Medicine was consulted. When seen, the patient able to respond to questions appropriately; however, she dozes off and falls back to sleep. 10/18: Patient persists with severe lower body edema and associated cutaneous wounds. She has developed azotemia with earlier attempts at diuresis but at this point she will not resolve her skin wounds without sign fluid removal. We will attempt a continuous infusion Lasix drip to see if we can get a more gingerly diuresis and avoid the dramatic intravascular volume changes. She remains ventilator dependent. 10/19: We have finally shifted into predictable negative fluid balance. Renal function remains acceptable despite very aggressive diuretic therapy. The next few days will tell us if this is largely extravascular water or there is a component of lymphedema. 10/20: Continued 3 L diuresis daily. Creatinine has declined to 1.0, BU and acceptable at 44. Will add intermittent albumin infusion and continue loop diuretic continuous infusion. Persistent hypertension will require additional oral agents. Convert tube feeds to Glucerna 1.5 and add Levemir twice daily as a basal source of insulin. 10/21: Diurses continues with mild azotemia. Edema considerably resolved. Extubation attempted with good as exchange but upper airway stridor required reintubation. 10/22: Patient required reintubation yesterday for started. Currently intubated sedated. Continues to have excellent diuresis 2.6 L in 24 hours, continues to lose weight. Achieving negative balance. Edema resolving 10/23: Remains intubated sedated. Urine output remains excellent on Lasix drip 4 L in 24 hours. However increased predominantly inspiratory wheezing noted today. Chest x-ray slightly increased pulmonary vascular congestion, perihilar infiltrates. Will give 1 dose of Diamox 10/24: Patient was extubated yesterday. Approximately after 2 hours developed some upper airway obstruction/stridor. Additional IV Decadron given and racemic epinephrine 2 followed by BiPAP with improvement in stridor. Currently remains on BiPAP intermittently desaturates when the BiPAP mask is removed. No stridor observed. Chest x-ray shows pulmonary edema pattern. Add Diamox 500 mg IV for 3 days. Continue Lasix infusion. 10/25: Continued good response to intravenous diuretic therapy. Chest x-ray a little clearer on the left right side still with excess water. Creatinine less than 1 with mild azotemia. Following extubation 2 days ago she continues to protect her airway well. Objective Vital Signs / I&O: Vital Signs 10/24/17 10:00 10/24/17 12:00 10/24/17 12:20 Temperature 98.1 F Pulse Rate 86 84 85 Respiratory Rate 15 22 Blood Pressure 135/71 Pulse Oximetry 92 L 96 10/24/17 13:58 10/24/17 14:00 10/24/17 14:02 Temperature Pulse Rate 83 83 Respiratory Rate 16 Blood Pressure Pulse Oximetry 96 10/24/17 16:00 10/24/17 16:19 10/24/17 18:00 Temperature 98.4 F Pulse Rate 65 85 86 Respiratory Rate 18 20 Blood Pressure 140/67 Pulse Oximetry 100 100 10/24/17 19:35 10/24/17 20:00 10/24/17 21:31 Temperature 98.6 F Pulse Rate 82 72 Respiratory Rate 20 12 Blood Pressure 145/67 H Pulse Oximetry 97 100 99 10/24/17 22:00 10/24/17 23:00 10/24/17 23:48 Temperature Pulse Rate 94 H 90 Respiratory Rate 12 Blood Pressure Pulse Oximetry 100 10/25/17 00:00 10/25/17 02:00 10/25/17 03:00 Temperature 98.1 F Pulse Rate 85 83 97 H Respiratory Rate 13 Blood Pressure 149/74 H Pulse Oximetry 100 10/25/17 03:29 10/25/17 04:00 10/25/17 06:00 Temperature 98.5 F Pulse Rate 90 87 Respiratory Rate Blood Pressure 151/76 H Pulse Oximetry 100 100 10/25/17 08:04 Temperature Pulse Rate 97 H Respiratory Rate 15 Blood Pressure Pulse Oximetry 95 Intake & Output 10/24/17 10/25/17 10/25/17 18:59 06:59 18:59 Intake Total 812.5 / 812.5 Output Total 1999 2300 / 2300 Balance -1187.5 / -1187.5 -2300 / -2300 Weight 124 kg Intake: IV 762.5 / 762.5 Lasix Inj 100 MG In NS Inj 90 100 / 100 ML @ 5 mls/hr IV.CONT .Q20H [facility] Rx#:[id number] Flexbumin 25% Inj 100 ML @ 60 100 / 100 mls/hr IV.SIG Q12H [facility] Rx#: [id number] Azactam Inj 1,000 MG In NS Inj 200 / 200 100 ML @ 200 mls/hr IV.SIG Q8H [facility] Rx#:[id number] KCl 40 mEq Premix Inj 40 meq In 100 / 100 100 ml @ 25 mls/hr IV.SIG UNSCH PRN Rx#:[id number] Vancomycin Inj 1,250 MG In NS 262.5 / 262.5 Inj 250 ML @ 250 mls/hr IV.SIG Q24H [facility] Rx#:[id number] Oral 50 / 50 Output: Stool 0 / 0 Urine Amount (Catheter) 1999 230 / 230 Indwelling Urethral Catheter 1999 / 230 Other: Date of Last Bowel Movement 10/13/17 10/13/17 # Bowel Movements 0 Result Diagrams: 10/25/17 05:20 10/25/17 05:20 Objective Remarks: GENERAL: A 62-year-old female HEAD: Atraumatic, normocephalic. BERE. ENT:BiPAP mask in place NECK: Supple. Trachea in the midline. No stridor today, airway widely patent, no obstruction. CARDIOVASCULAR: Regular rate and rhythm. Normal S1, S2. No murmurs, rubs or gallops noted. Neck veins not visible. PULMONARY: Bilateral equal air entry, diminished in the bases. Mild inspiratory wheezes. ABDOMEN: Soft, obese, nontender, nondistended. [place] edema involving the lower abdomen EXTREMITIES: Cracked skin on lower extremities with wrinkling of feet. NEUROLOGIC: Patient is alert awake. Able to communicate follows commands 4 Assessment and Plan - Assessment and Plan Plan: IMPRESSION: Acute hypercapnic and hypoxemic respiratory failure. Upper airway obstruction/stridor Congestive heart failure Acute exacerbation of chronic obstructive pulmonary disease. Gram-positive bacteremia/Micrococcus. Urinary tract infection. Bilateral lower extremity cellulitis. Anemia. Poorly controlled hypertension Obstructive sleep apnea/morbid obesity. History of congestive heart failure. History of hypertension. History of diabetes mellitus. Peripheral arterial disease. Hyperlipidemia. Fluid overload. RECOMMENDATIONS: 1. Monitor neuro status closely and currently off all sedation 2. Reintubated 10/21/2017 for stridor. Extubated 10/23. Post extubation stridor again, improved with IV Decadron, racemic epinephrine, BiPAP 3. Bronchodilators. DuoNeb every 4 hours and every 2 hours as needed for shortness of breath. 4. Decadron 4 mg IV every 6 hours 5. Discontinued lisinopril due to hyperkalemia. 6. 2-D echo to evaluate ventricular function, pending. 7. Monitor renal function, I's and O's and avoid nephrotoxins. Electrolyte replacement per protocol. Lasix 5 mg/h. Diamox 500 mg IV x4 doses 8. Nasogastric tube for GI decompression. Resume tube feeds in 24 hours. Glucerna 1.5. 9. Continue with antibiotics per ID. (Vancomycin and Azactam). Blood culture from 10/14/2017 showed micrococcus species in 2/4 bottles. Urine cx 10/14/2017 showed Lactobacillus species. Wound culture from lower extremity showed Staph aureus, Klebsiella and Pseudomonas 10. Sliding scale insulin with Accu-Cheks for glycemic control. Increased Levemir to 15 units every 12 on 10/22. Increase to 22 q12, on 10/23 11. Monitor CBC. 12. Gastrointestinal prophylaxis with Protonix and deep vein thrombosis prophylaxis with heparin subcutaneously. 13. Hydralazine 100 mg p.o. 3 times daily. Coreg to 12.5 BID Overall impression: Patient remains critically ill. She required reintubation for stridor 10/21 but diffusion capacity is much improved. 10/23/2017 she was extubated again developed stridor but improved with BiPAP and racemic epinephrine. Despite aggressive diuresis patient still shows evidence of pulmonary edema. Diuresis increased with adding Diamox. Blood glucose and hypertension remains inadequately controlled, medications increased again today. Critical care 38 minutes aside from procedures.
[2017-10-25] MEDS: Gabapentin 300 MG Capsule PO SCH ×3 (09:53→18:12)
[2017-10-25] MEDS: Pantoprazole Sodium 20 MG DR Tablet PO SCH (09:53)
[2017-10-25] MEDS: Carvedilol 12.5 MG Tablet PO SCH ×2 (09:53→20:25)
[2017-10-25] MEDS: Chlorhexidine 0.12% Oral Kit 15 ML UDC OROPHARYNG SCH ×2 (09:53→20:27)
[2017-10-25] MEDS: Budesonide-Formoterol 160/4.5 MCG 6 GM Inhaler INH SCH ×2 (09:56→20:28)
[2017-10-25] MEDS: Insulin Detemir Inj 1,000 UNIT/10 ML Vial SQ SCH ×2 (09:56→20:27)
[2017-10-25] MEDS ORDERED: Magnesium Citrate Liq 300 ML Bottle PO ONE (10:00)
[2017-10-25] MEDS: Furosemide Inj 100 MG in Sodium Chlor 0.9% Inj 90 ML IV.CONT SCH (13:50)
[2017-10-25] MEDS: Vancomycin Inj 1,250 MG in Sodium Chlor 0.9% Inj 250 ML IV.SIG SCH (14:18)
--- NOTE | 2017-10-25 15:24 | P.PNID ---
Subjective Remarks: refusijng BIPAP On simple mask 10 L, but easily desats when tired afebrile no new issues Antibiotics: vanco azactam Allergies/Adverse Reactions: Allergies codeine Allergy (Intermediate, Verified 10/14/17 18:32) rash penicillin G Allergy (Intermediate, Verified 10/14/17 18:32) RASH,FEVER, SEIZURE *MDRO Multi-Drug Resistant Organism Adverse Reaction (Unknown, Uncoded 09/16/17 20:28) Cleared 04/25/16 MRSA (leg wound) 04/2015 MRSA PCR screen NEGATIVE - 03/26/16 & 04/25/16 Cleared per Infection Control Objective Vital Signs 10/24/17 16:00 10/24/17 16:19 10/24/17 18:00 Temperature 98.4 F Pulse Rate 65 85 86 Respiratory Rate 18 20 Blood Pressure 140/67 Pulse Oximetry 100 100 10/24/17 19:35 10/24/17 20:00 10/24/17 21:31 Temperature 98.6 F Pulse Rate 82 72 Respiratory Rate 20 12 Blood Pressure 145/67 H Pulse Oximetry 97 100 99 10/24/17 22:00 10/24/17 23:00 10/24/17 23:48 Temperature Pulse Rate 94 H 90 Respiratory Rate 12 Blood Pressure Pulse Oximetry 100 10/25/17 00:00 10/25/17 02:00 10/25/17 03:00 Temperature 98.1 F Pulse Rate 85 83 97 H Respiratory Rate 13 Blood Pressure 149/74 H Pulse Oximetry 100 10/25/17 03:29 10/25/17 04:00 10/25/17 06:00 Temperature 98.5 F Pulse Rate 90 87 Respiratory Rate Blood Pressure 151/76 H Pulse Oximetry 100 100 10/25/17 08:04 10/25/17 09:18 10/25/17 11:39 Temperature Pulse Rate 97 H 101 H Respiratory Rate 15 12 Blood Pressure Pulse Oximetry 95 94 L Intake & Output 10/24/17 10/25/17 10/25/17 18:59 06:59 18:59 Intake Total 812.5 / 812.5 100 / 100 100 / 100 Output Total 1999 2300 / 2300 Balance -1187.5 / -1187.5 -2200 / -2200 100 / 100 Weight 124 kg Intake: IV 762.5 / 762.5 100 / 100 100 / 100 Lasix Inj 100 MG In NS Inj 90 100 / 100 100 / 100 ML @ 5 mls/hr IV.CONT .Q20H [facility] Rx#:[id number] Flexbumin 25% Inj 100 ML @ 60 100 / 100 mls/hr IV.SIG Q12H [facility] Rx#: [id number] Azactam Inj 1,000 MG In NS Inj 200 / 200 100 / 100 100 ML @ 200 mls/hr IV.SIG Q8H [facility] Rx#:[id number] KCl 40 mEq Premix Inj 40 meq In 100 / 100 100 ml @ 25 mls/hr IV.SIG UNSCH PRN Rx#:[id number] Vancomycin Inj 1,250 MG In NS 262.5 / 262.5 Inj 250 ML @ 250 mls/hr IV.SIG Q24H [facility] Rx#:[id number] Oral 50 / 50 Output: Stool 0 / 0 Urine Amount (Catheter) 1999 230 / 2300 Indwelling Urethral Catheter 1999 Other: Date of Last Bowel Movement 10/13/17 10/13/17 10/13/17 # Bowel Movements 0 10/23/17 08:30 Sputum - Endotracheal Gram Stain - Final 10/23/17 08:30 Sputum - Endotracheal Sputum Culture - Final Heavy growth normal respiratory kristy Lab - Hematology Results 10/25/17 05:20 WBC 8.5 RBC 4.13 Hgb 9.1 L Hct 31.0 L MCV 75.2 L MCH 22.1 L MCHC 29.3 L RDW 18.8 H Plt Count 211 MPV 8.8 Lab - Chemistry Results 10/23/17 10/23/17 10/24/17 13:55 20:01 02:07 Sodium 146 H Potassium 3.4 L Chloride 101 Carbon Dioxide 37.6 H Anion Gap 7 BUN 47 H Creatinine 0.93 Estimated GFR 61 L POC Glucose 289 H 208 H Random Glucose 241 H Calcium 8.7 Magnesium 2.3 Total Bilirubin 0.4 AST 16 ALT 16 Alkaline Phosphatase 129 H Total Protein 7.1 Albumin 3.3 L 10/24/17 10/24/17 10/24/17 05:30 13:52 20:44 Sodium 146 H Potassium 3.3 L Chloride 102 Carbon Dioxide 37.2 H Anion Gap 7 BUN 51 H Creatinine 0.91 Estimated GFR 63 L POC Glucose 187 H 277 H Random Glucose 213 H Calcium 8.7 Magnesium Total Bilirubin 0.5 AST 17 ALT 14 Alkaline Phosphatase 128 H Total Protein 6.9 Albumin 3.3 L 10/25/17 10/25/17 10/25/17 02:12 05:20 09:30 Sodium 145 Potassium 3.6 Chloride 103 Carbon Dioxide 38.0 H Anion Gap 4 L BUN 44 H Creatinine 0.81 Estimated GFR 72 L POC Glucose 283 H 267 H Random Glucose 262 H Calcium 9.0 Magnesium Total Bilirubin 0.6 AST 18 ALT 14 Alkaline Phosphatase 123 H Total Protein 7.0 Albumin 3.2 L 10/25/17 14:14 Sodium Potassium Chloride Carbon Dioxide Anion Gap BUN Creatinine Estimated GFR POC Glucose 262 H Random Glucose Calcium Magnesium Total Bilirubin AST ALT Alkaline Phosphatase Total Protein Albumin Imaging: ITS Impressions Chest X-Ray 10/25/17 06:00 CONCLUSION: Cardiomegaly. Persistent but improving mild interstitial and alveolar density likely related to improving edema. Physical Exam: GENERAL: Sedated intubated on partial facce BIPAP mask SKIN: Warm and dry. edema erythema and draining wounds on BLE markedly improved. anasarca improving HEAD: Atraumatic. Normocephalic. EYES: Pupils equal and round. No scleral icterus. No injection or drainage. ENT: No nasal bleeding or discharge. Mucous membranes pink and moist. NECK: Trachea midline. No JVD. CARDIOVASCULAR: Regular rate and rhythm. RESPIRATORY: No accessory muscle use. Clear to auscultation. Breath sounds equal bilaterally. GASTROINTESTINAL: Abdomen soft, non-tender, distended. Hepatic and splenic margins not palpable. Anasarca , tigjht edema of abdominal wall MUSCULOSKELETAL: Extremities without clubbing, cyanosis, much impproved edema with prominent tree bark [place]. No obvious deformities. NEUROLOGICAL: sedated PSYCHIATRIC: unabl e to assess Assessment and Plan - Plan Morbid obesity chronic venostasis BLE cellulits and infected wounds Micrococcus bacteremia - proabbly from the cellulits - not sustained - 2/2 sets positive 2 D echo negative UA with too many sq epi cells to reliably inteprete cont vancomycin x 2 weeks from 1st neg blood clx cont azactam thru the weekend fu repeat BC fu P sputum dw RN
[2017-10-26] MEDS: Insulin NovoLOG Aspart Correctional Sugar Inj SQ SCH ×4 (01:11→22:16)
[2017-10-26] MEDS: Oral Hygiene Kit OROPHARYNG SCH ×4 (01:11→17:41)
[2017-10-26] MEDS: Carvedilol 12.5 MG Tablet PO SCH ×2 (08:01→20:22)
[2017-10-26] MEDS: Gabapentin 300 MG Capsule PO SCH ×3 (08:01→17:40)
[2017-10-26] MEDS: Pantoprazole Sodium 20 MG DR Tablet PO SCH (08:01)
[2017-10-26] MEDS: Chlorhexidine 0.12% Oral Kit 15 ML UDC OROPHARYNG SCH ×2 (08:02→21:08)
[2017-10-26] MEDS: Budesonide-Formoterol 160/4.5 MCG 6 GM Inhaler INH SCH ×2 (08:03→20:23)
[2017-10-26] MEDS: Nystatin 100,000 UNITS/GM Powder 15 GM Bottle TOPICAL SCH ×4 (08:03→21:09)
[2017-10-26] MEDS: Insulin Detemir Inj 1,000 UNIT/10 ML Vial SQ SCH ×2 (08:03→22:15)
--- NOTE | 2017-10-26 08:32 | P.PNCC ---
Subjective Subjective Remarks/Hospital Course: The patient is a 62-year-old female with past medical history of diabetes mellitus, COPD on 2 liters nasal cannula, obstructive sleep apnea on CPAP at home, however, she is not using it; hypertension, hyperlipidemia, CHF with pacemaker placement. She presented to [facility] ED with edema and swelling of lower extremity and shortness of breath. The patient was admitted under Hospitalist Service and was seen by Infectious Disease Service. She is currently being treated for a urinary tract infection, gram-positive bacteremia. In addition, she had a wound culture from her leg positive for Pseudomonas species and Staphylococcus aureus. Chest x-ray from this morning showed increased pulmonary vascularity. She had an ABG on 2 liters at 8:42 which showed acute hypercapnic respiratory acidosis with a pH of 7.24, CO2 72, PaO2 84, bicarbonate of 30, and saturation 93%. She was subsequently placed on BiPAP 22/10 with 30% FiO2. Due to lethargy and respiratory distress, Critical Care Medicine was consulted. When seen, the patient able to respond to questions appropriately; however, she dozes off and falls back to sleep. 10/18: Patient persists with severe lower body edema and associated cutaneous wounds. She has developed azotemia with earlier attempts at diuresis but at this point she will not resolve her skin wounds without sign fluid removal. We will attempt a continuous infusion Lasix drip to see if we can get a more gingerly diuresis and avoid the dramatic intravascular volume changes. She remains ventilator dependent. 10/19: We have finally shifted into predictable negative fluid balance. Renal function remains acceptable despite very aggressive diuretic therapy. The next few days will tell us if this is largely extravascular water or there is a component of lymphedema. 10/20: Continued 3 L diuresis daily. Creatinine has declined to 1.0, BU and acceptable at 44. Will add intermittent albumin infusion and continue loop diuretic continuous infusion. Persistent hypertension will require additional oral agents. Convert tube feeds to Glucerna 1.5 and add Levemir twice daily as a basal source of insulin. 10/21: Diurses continues with mild azotemia. Edema considerably resolved. Extubation attempted with good as exchange but upper airway stridor required reintubation. 10/22: Patient required reintubation yesterday for started. Currently intubated sedated. Continues to have excellent diuresis 2.6 L in 24 hours, continues to lose weight. Achieving negative balance. Edema resolving 10/23: Remains intubated sedated. Urine output remains excellent on Lasix drip 4 L in 24 hours. However increased predominantly inspiratory wheezing noted today. Chest x-ray slightly increased pulmonary vascular congestion, perihilar infiltrates. Will give 1 dose of Diamox 10/24: Patient was extubated yesterday. Approximately after 2 hours developed some upper airway obstruction/stridor. Additional IV Decadron given and racemic epinephrine 2 followed by BiPAP with improvement in stridor. Currently remains on BiPAP intermittently desaturates when the BiPAP mask is removed. No stridor observed. Chest x-ray shows pulmonary edema pattern. Add Diamox 500 mg IV for 3 days. Continue Lasix infusion. 10/25: Continued good response to intravenous diuretic therapy. Chest x-ray a little clearer on the left right side still with excess water. Creatinine less than 1 with mild azotemia. Following extubation 2 days ago she continues to protect her airway well. 10/26: Patient is now diuresed to a negative fluid balance of 21 L. Echo indicates reduced systolic function. No longer having problems with hyperkalemia. Creatinine now less than 1. We will restart JAROD inhibitor as long-term therapy. Glucose still poorly controlled but improving. Objective Vital Signs / I&O: Vital Signs 10/25/17 09:18 10/25/17 11:39 10/25/17 12:00 Temperature 98.2 F Pulse Rate 101 H 98 H Respiratory Rate 12 15 Blood Pressure 155/81 H Pulse Oximetry 94 L 10/25/17 16:00 10/25/17 20:00 10/25/17 21:35 Temperature 98.4 F 98.4 F Pulse Rate 88 88 Respiratory Rate 18 16 Blood Pressure 143/78 H 166/82 H Pulse Oximetry 93 L 10/25/17 22:00 10/26/17 00:00 10/26/17 02:00 Temperature 98.3 F Pulse Rate 84 84 86 Respiratory Rate 16 Blood Pressure 159/69 H Pulse Oximetry 10/26/17 04:00 10/26/17 06:00 Temperature 98.2 F Pulse Rate 86 79 Respiratory Rate 20 Blood Pressure 178/87 H Pulse Oximetry Intake & Output 08/17/18 08/18/18 08/18/18 18:59 06:59 18:59 Intake Total 802.5 / 802.5 240 / 240 Output Total 1800 / 1800 1100 / 1100 Balance -997.5 / -997.5 -860 / -860 Weight 123.8 kg Intake: IV 562.5 / 562.5 Lasix Inj 100 MG In NS Inj 90 100 / 100 ML @ 5 mls/hr IV.CONT .Q20H [facility] Rx#:[id number] Azactam Inj 1,000 MG In NS Inj 200 / 200 100 ML @ 200 mls/hr IV.SIG Q8H [facility] Rx#:[id number] Vancomycin Inj 1,250 MG In NS 262.5 / 262.5 Inj 250 ML @ 250 mls/hr IV.SIG Q24H [facility] Rx#:[id number] Oral 240 / 240 240 / 240 Output: Urine Amount (Catheter) 1800 / 1800 1100 / 1100 Indwelling Urethral Catheter 1800 / 1800 1100 / 1100 Other: Date of Last Bowel Movement 10/13/17 10/13/17 Result Diagrams: 10/25/17 05:20 10/25/17 05:20 Objective Remarks: GENERAL: A 62-year-old female, conversant. HEAD: Atraumatic, normocephalic. BERE. ENT: Some clot drainage from nose. NECK: Supple. Trachea in the midline. No stridor today, airway widely patent, no obstruction. CARDIOVASCULAR: Regular rate and rhythm. Normal S1, S2. No murmurs, rubs or gallops noted. Neck veins not visible. PULMONARY: Bilateral equal air entry, diminished in the bases. Persistent mobile secretions. ABDOMEN: Soft, obese, nontender, nondistended. [place] edema involving the lower abdomen resolving. EXTREMITIES: Cracked skin on lower extremities with wrinkling of feet. No more erythema. NEUROLOGIC: Patient is alert awake. Able to communicate follows commands 4 Assessment and Plan - Assessment and Plan Plan: IMPRESSION: Acute hypercapnic and hypoxemic respiratory failure. Upper airway obstruction/stridor Congestive heart failure Acute exacerbation of chronic obstructive pulmonary disease. Gram-positive bacteremia/Micrococcus. Urinary tract infection. Bilateral lower extremity cellulitis. Anemia. Poorly controlled hypertension Obstructive sleep apnea/morbid obesity. History of congestive heart failure. History of hypertension. History of diabetes mellitus. Peripheral arterial disease. Hyperlipidemia. Fluid overload. RECOMMENDATIONS: 1. Monitor neuro status closely and currently off all sedation 2. Reintubated 10/21/2017 for stridor. Extubated 10/23. Post extubation stridor again, improved with IV Decadron, racemic epinephrine, BiPAP 3. Bronchodilators. DuoNeb every 4 hours and every 2 hours as needed for shortness of breath. 4. Decadron 4 mg IV every 6 hours 5. Discontinued lisinopril due to hyperkalemia. 6. 2-D echo to evaluate ventricular function, pending. 7. Monitor renal function, I's and O's and avoid nephrotoxins. Electrolyte replacement per protocol. Lasix 5 mg/h. Diamox 500 mg IV x4 doses 8. Nasogastric tube for GI decompression. Resume tube feeds in 24 hours. Glucerna 1.5. 9. Continue with antibiotics per ID. (Vancomycin and Azactam). Blood culture from 10/14/2017 showed micrococcus species in 2/4 bottles. Urine cx 10/14/2017 showed Lactobacillus species. Wound culture from lower extremity showed Staph aureus, Klebsiella and Pseudomonas 10. Sliding scale insulin with Accu-Cheks for glycemic control. Levemir increase to 22 q12, on 10/23 11. Monitor CBC. 12. Gastrointestinal prophylaxis with Protonix and deep vein thrombosis prophylaxis with heparin subcutaneously. 13. Hydralazine 100 mg p.o. 3 times daily. Coreg to 12.5 BID 14. Add lisinopril 20 mg daily Overall impression: Patient remains critically ill. She required reintubation for stridor 10/21 but diffusion capacity is much improved. 10/23/2017 she was extubated again developed stridor but improved with BiPAP and racemic epinephrine. Despite aggressive diuresis patient still shows evidence of pulmonary edema. Diuresis increased with adding Diamox. Blood glucose and hypertension remains inadequately controlled, medications increased again today.
[2017-10-26] MEDS ORDERED: Lisinopril 20 MG Tablet PO SCH (09:00)
[2017-10-26] MEDS: Heparin - SQ 10,000 UNITS/ML Vial SQ SCH ×2 (13:10→21:07)
[2017-10-26] MEDS ORDERED: Pharmacy Ordered Lab Info OTHER ONE (13:45)
[2017-10-26] MEDS: Vancomycin Inj 1,250 MG in Sodium Chlor 0.9% Inj 250 ML IV.SIG SCH (14:00)
[2017-10-26 14:20] LABS: Calcium 9.1 mg/dL (8.5-10.1); Carbon Dioxide 39.1 meq/L (21.0-32.0); Potassium 3.5 meq/L (3.5-5.1)
[2017-10-26 14:22] LABS: Vancomycin,Trough 17.5 mcg/mL (5.0-10.0)
--- NOTE | 2017-10-26 16:43 | OTSOAPIP ---
RECEIVED OCCUPATIONAL THERAPY ORDERS. ATTEMPTED TO SEE PATIENT FOR EVALUATION THIS DATE, HOWEVER PATIENT WAS UNDERGOING EXTENSIVE NURSING CARE IN INTENSIVE CARE UNIT, THEREFORE HELD. WILL PLAN TO REATTEMPT NEXT DAY. INTERDISCIPLINARY COMMUNICATION: REVIEWED ELECTRONIC MEDICAL RECORD Therapist: Alvina Sr OTR/L Signature on file
[2017-10-27] MEDS: Insulin NovoLOG Aspart Correctional Sugar Inj SQ SCH ×4 (03:36→21:02)
[2017-10-27] MEDS: Heparin - SQ 10,000 UNITS/ML Vial SQ SCH (06:16)
[2017-10-27 06:59] LABS: Calcium 8.6 mg/dL (8.5-10.1); Carbon Dioxide 37.1 meq/L (21.0-32.0); Potassium 3.7 meq/L (3.5-5.1)
--- NOTE | 2017-10-27 07:46 | P.PNCC ---
Subjective Subjective Remarks/Hospital Course: The patient is a 62-year-old female with past medical history of diabetes mellitus, COPD on 2 liters nasal cannula, obstructive sleep apnea on CPAP at home, however, she is not using it; hypertension, hyperlipidemia, CHF with pacemaker placement. She presented to [facility] ED with edema and swelling of lower extremity and shortness of breath. The patient was admitted under Hospitalist Service and was seen by Infectious Disease Service. She is currently being treated for a urinary tract infection, gram-positive bacteremia. In addition, she had a wound culture from her leg positive for Pseudomonas species and Staphylococcus aureus. Chest x-ray from this morning showed increased pulmonary vascularity. She had an ABG on 2 liters at 8:42 which showed acute hypercapnic respiratory acidosis with a pH of 7.24, CO2 72, PaO2 84, bicarbonate of 30, and saturation 93%. She was subsequently placed on BiPAP 22/10 with 30% FiO2. Due to lethargy and respiratory distress, Critical Care Medicine was consulted. When seen, the patient able to respond to questions appropriately; however, she dozes off and falls back to sleep. 10/18: Patient persists with severe lower body edema and associated cutaneous wounds. She has developed azotemia with earlier attempts at diuresis but at this point she will not resolve her skin wounds without sign fluid removal. We will attempt a continuous infusion Lasix drip to see if we can get a more gingerly diuresis and avoid the dramatic intravascular volume changes. She remains ventilator dependent. 10/19: We have finally shifted into predictable negative fluid balance. Renal function remains acceptable despite very aggressive diuretic therapy. The next few days will tell us if this is largely extravascular water or there is a component of lymphedema. 10/20: Continued 3 L diuresis daily. Creatinine has declined to 1.0, BU and acceptable at 44. Will add intermittent albumin infusion and continue loop diuretic continuous infusion. Persistent hypertension will require additional oral agents. Convert tube feeds to Glucerna 1.5 and add Levemir twice daily as a basal source of insulin. 10/21: Diurses continues with mild azotemia. Edema considerably resolved. Extubation attempted with good as exchange but upper airway stridor required reintubation. 10/22: Patient required reintubation yesterday for started. Currently intubated sedated. Continues to have excellent diuresis 2.6 L in 24 hours, continues to lose weight. Achieving negative balance. Edema resolving 10/23: Remains intubated sedated. Urine output remains excellent on Lasix drip 4 L in 24 hours. However increased predominantly inspiratory wheezing noted today. Chest x-ray slightly increased pulmonary vascular congestion, perihilar infiltrates. Will give 1 dose of Diamox 10/24: Patient was extubated yesterday. Approximately after 2 hours developed some upper airway obstruction/stridor. Additional IV Decadron given and racemic epinephrine 2 followed by BiPAP with improvement in stridor. Currently remains on BiPAP intermittently desaturates when the BiPAP mask is removed. No stridor observed. Chest x-ray shows pulmonary edema pattern. Add Diamox 500 mg IV for 3 days. Continue Lasix infusion. 10/25: Continued good response to intravenous diuretic therapy. Chest x-ray a little clearer on the left right side still with excess water. Creatinine less than 1 with mild azotemia. Following extubation 2 days ago she continues to protect her airway well. 10/26: Patient is now diuresed to a negative fluid balance of 21 L. Echo indicates reduced systolic function. No longer having problems with hyperkalemia. Creatinine now less than 1. We will restart JAROD inhibitor as long-term therapy. Glucose still poorly controlled but improving. 10/27: Lung congestion persists. Prerenal azotemia developing again. Mobile secretions heard. Due to body habitus she does not breathe well when not sitting up. Presently on BiPAP. Systolic blood pressure in the 80s this morning, will reduce lisinopril dose to 5 mg p.o. twice daily. Objective Vital Signs / I&O: Vital Signs 10/26/17 08:00 10/26/17 08:41 10/26/17 10:00 Temperature 98.1 F Pulse Rate 82 82 Respiratory Rate 14 Blood Pressure 149/71 H Pulse Oximetry 99 99 10/26/17 12:00 10/26/17 14:00 10/26/17 16:00 Temperature 98.3 F 97.8 F Pulse Rate 80 81 78 Respiratory Rate 12 22 Blood Pressure 144/69 H 121/56 L Pulse Oximetry 96 97 10/26/17 18:00 10/26/17 19:58 10/26/17 20:00 Temperature 97.9 F Pulse Rate 79 73 Respiratory Rate 18 Blood Pressure 134/74 Pulse Oximetry 96 97 10/26/17 22:00 10/26/17 23:50 10/27/17 00:00 Temperature 98.1 F Pulse Rate 73 74 70 Respiratory Rate 16 15 Blood Pressure 119/59 L Pulse Oximetry 95 10/27/17 02:00 10/27/17 03:50 10/27/17 04:00 Temperature Pulse Rate 76 63 69 Respiratory Rate 13 Blood Pressure 88/52 L Pulse Oximetry 96 10/27/17 06:00 Temperature Pulse Rate 63 Respiratory Rate Blood Pressure Pulse Oximetry Intake & Output 10/26/17 10/27/17 10/27/17 18:59 06:59 18:59 Intake Total 1007.5 / 1007.5 705 / 705 Output Total 550 / 550 570 / 570 Balance 457.5 / 457.5 135 / 135 Weight 149.3 kg Intake: IV 482.5 / 482.5 100 / 100 Lasix Inj 100 MG In NS Inj 90 20 / 20 ML @ 5 mls/hr IV.CONT .Q20H GUICHO Rx#:[id number] Azactam Inj 1,000 MG In NS Inj 200 / 200 100 / 100 100 ML @ 200 mls/hr IV.SIG Q8H GUICHO Rx#:[id number] Vancomycin Inj 1,250 MG In NS 262.5 / 262.5 Inj 250 ML @ 250 mls/hr IV.SIG Q24H GUICHO Rx#:[id number] Oral 525 / 525 250 / 250 Tube Feeding 180 / 180 Tube Irrigant 120 / 120 Other 55 / 55 Output: Urine Amount (Catheter) 550 / 550 550 / 550 Indwelling Urethral Catheter 550 / 550 550 / 550 Gastric Drainage 20 / 20 Oral Orogastric Tube 20 / 20 Other: # Voids 1 Date of Last Bowel Movement 10/13/17 10/27/17 # Bowel Movements 2 Result Diagrams: 10/25/17 05:20 10/27/17 06:20 Objective Remarks: GENERAL: A 62-year-old female, conversant. HEAD: Atraumatic, normocephalic. BERE. ENT: Minor congestion. NECK: Supple. Trachea in the midline. No stridor today, airway widely patent, no obstruction. CARDIOVASCULAR: Regular rate and rhythm. Normal S1, S2. No murmurs, rubs or gallops noted. PULMONARY: Bilateral equal air entry, diminished in the bases. Persistent mobile secretions. ABDOMEN: Soft, obese, nontender, nondistended. No guarding, bowel sounds active. EXTREMITIES: Cracked skin on lower extremities with wrinkling of feet. Toes pink. NEUROLOGIC: Patient is alert awake. Able to communicate follows commands 4 Assessment and Plan - Assessment and Plan Plan: IMPRESSION: Acute hypercapnic and hypoxemic respiratory failure. Upper airway obstruction/stridor Congestive heart failure Acute exacerbation of chronic obstructive pulmonary disease. Gram-positive bacteremia/Micrococcus. Urinary tract infection. Bilateral lower extremity cellulitis. Anemia. Poorly controlled hypertension Obstructive sleep apnea/morbid obesity. History of congestive heart failure. History of hypertension. History of diabetes mellitus. Peripheral arterial disease. Hyperlipidemia. Fluid overload. RECOMMENDATIONS: 1. Monitor neuro status closely and currently off all sedation 2. Reintubated 10/21/2017 for stridor. Extubated 10/23. Post extubation stridor again, improved with IV Decadron, racemic epinephrine, BiPAP 3. Bronchodilators. DuoNeb every 4 hours and every 2 hours as needed for shortness of breath. 4. Decadron 4 mg IV every 6 hours 5. Discontinued lisinopril due to hyperkalemia. 6. 2-D echo to evaluate ventricular function, pending. 7. Monitor renal function, I's and O's and avoid nephrotoxins. Electrolyte replacement per protocol. Lasix 5 mg/h. Diamox 500 mg IV x4 doses 8. Nasogastric tube for GI decompression. Resume tube feeds in 24 hours. Glucerna 1.5. 9. Continue with antibiotics per ID. (Vancomycin and Azactam). Blood culture from 10/14/2017 showed micrococcus species in 2/4 bottles. Urine cx 10/14/2017 showed Lactobacillus species. Wound culture from lower extremity showed Staph aureus, Klebsiella and Pseudomonas 10. Sliding scale insulin with Accu-Cheks for glycemic control. Levemir increase to 22 q12, on 10/23 11. Monitor CBC. 12. Gastrointestinal prophylaxis with Protonix and deep vein thrombosis prophylaxis with heparin subcutaneously. 13. Hydralazine 100 mg p.o. 3 times daily. Coreg to 12.5 BID 14. Add lisinopril 20 mg daily Overall impression: Despite losing approximately 50 pounds in water weight the patient remains critically ill. She required reintubation for stridor 10/21 but diffusion capacity is much improved. 10/23/2017 she was extubated again developed stridor but improved with BiPAP and racemic epinephrine. Despite aggressive diuresis patient still shows evidence of pulmonary edema. Diuresis increased, adding Diamox. Blood glucose and hypertension remains inadequately controlled, medications increased again today. Requiring BiPAP at night.
[2017-10-27] MEDS: Gabapentin 300 MG Capsule PO SCH ×3 (08:22→17:20)
[2017-10-27] MEDS: Carvedilol 12.5 MG Tablet PO SCH ×2 (08:22→21:03)
[2017-10-27] MEDS: Pantoprazole Sodium 20 MG DR Tablet PO SCH (08:22)
[2017-10-27] MEDS: Lisinopril 5 MG Tablet PO SCH ×2 (08:22→21:04)
[2017-10-27] MEDS: Chlorhexidine 0.12% Oral Kit 15 ML UDC OROPHARYNG SCH ×2 (08:23→21:02)
[2017-10-27] MEDS: Nystatin 100,000 UNITS/GM Powder 15 GM Bottle TOPICAL SCH ×4 (08:24→21:29)
[2017-10-27] MEDS: Budesonide-Formoterol 160/4.5 MCG 6 GM Inhaler INH SCH ×2 (08:24→21:05)
[2017-10-27] MEDS: Insulin Detemir Inj 1,000 UNIT/10 ML Vial SQ SCH ×2 (12:55→21:03)
[2017-10-28] MEDS: Insulin NovoLOG Aspart Correctional Sugar Inj SQ SCH ×4 (02:21→22:22)
[2017-10-28] MEDS: Oral Hygiene Kit OROPHARYNG SCH ×6 (04:00→19:19)
[2017-10-28 05:06] LABS: Calcium 8.7 mg/dL (8.5-10.1); Carbon Dioxide 36.7 meq/L (21.0-32.0); Potassium 4.1 meq/L (3.5-5.1); Vancomycin,Random 19.5 Comment
--- NOTE | 2017-10-28 05:50 | XR ---
EXAM DATE: 10/28/2017 5:09 AM EDT AGE/SEX: 62 years / Female INDICATIONS: Shortness of breath. CLINICAL DATA: This is the patient's subsequent encounter. Patient reports that signs and symptoms h ave been present for 1 week and indicates a pain score of Nonresponsive. MEDICAL/SURGICAL HISTORY: . Diabetes mellitus type II. Congestive heart failure. Hypercholeste rolemia. Coronary artery disease. Hypertension. COPD. . Coronary artery stent. Pacemaker COMPARISON: [facility] [place], CHEST 1V SINGLE AP, 10/25/2017. . FINDINGS: A single AP view of the chest demonstrates low lung volumes. Heart is mildly enlarged. Minimal linear atelectasis within the right base. No infiltrate or effusion. Patient advised left. Right subclavian central line. CONCLUSION: Cardiomegaly. Minimal right basilar atelectasis. Electronically signed by: Unruly Bronson MD 10/28/2017 5:48 AM EDT
[2017-10-28] MEDS: Heparin - SQ 10,000 UNITS/ML Vial SQ SCH ×2 (06:21→14:00)
--- NOTE | 2017-10-28 07:48 | P.PNCC ---
Subjective Subjective Remarks/Hospital Course: The patient is a 62-year-old female with past medical history of diabetes mellitus, COPD on 2 liters nasal cannula, obstructive sleep apnea on CPAP at home, however, she is not using it; hypertension, hyperlipidemia, CHF with pacemaker placement. She presented to [facility] ED with edema and swelling of lower extremity and shortness of breath. The patient was admitted under Hospitalist Service and was seen by Infectious Disease Service. She is currently being treated for a urinary tract infection, gram-positive bacteremia. In addition, she had a wound culture from her leg positive for Pseudomonas species and Staphylococcus aureus. Chest x-ray from this morning showed increased pulmonary vascularity. She had an ABG on 2 liters at 8:42 which showed acute hypercapnic respiratory acidosis with a pH of 7.24, CO2 72, PaO2 84, bicarbonate of 30, and saturation 93%. She was subsequently placed on BiPAP 22/10 with 30% FiO2. Due to lethargy and respiratory distress, Critical Care Medicine was consulted. When seen, the patient able to respond to questions appropriately; however, she dozes off and falls back to sleep. 10/18: Patient persists with severe lower body edema and associated cutaneous wounds. She has developed azotemia with earlier attempts at diuresis but at this point she will not resolve her skin wounds without sign fluid removal. We will attempt a continuous infusion Lasix drip to see if we can get a more gingerly diuresis and avoid the dramatic intravascular volume changes. She remains ventilator dependent. 10/19: We have finally shifted into predictable negative fluid balance. Renal function remains acceptable despite very aggressive diuretic therapy. The next few days will tell us if this is largely extravascular water or there is a component of lymphedema. 10/20: Continued 3 L diuresis daily. Creatinine has declined to 1.0, BU and acceptable at 44. Will add intermittent albumin infusion and continue loop diuretic continuous infusion. Persistent hypertension will require additional oral agents. Convert tube feeds to Glucerna 1.5 and add Levemir twice daily as a basal source of insulin. 10/21: Diurses continues with mild azotemia. Edema considerably resolved. Extubation attempted with good as exchange but upper airway stridor required reintubation. 10/22: Patient required reintubation yesterday for started. Currently intubated sedated. Continues to have excellent diuresis 2.6 L in 24 hours, continues to lose weight. Achieving negative balance. Edema resolving 10/23: Remains intubated sedated. Urine output remains excellent on Lasix drip 4 L in 24 hours. However increased predominantly inspiratory wheezing noted today. Chest x-ray slightly increased pulmonary vascular congestion, perihilar infiltrates. Will give 1 dose of Diamox 10/24: Patient was extubated yesterday. Approximately after 2 hours developed some upper airway obstruction/stridor. Additional IV Decadron given and racemic epinephrine 2 followed by BiPAP with improvement in stridor. Currently remains on BiPAP intermittently desaturates when the BiPAP mask is removed. No stridor observed. Chest x-ray shows pulmonary edema pattern. Add Diamox 500 mg IV for 3 days. Continue Lasix infusion. 10/25: Continued good response to intravenous diuretic therapy. Chest x-ray a little clearer on the left right side still with excess water. Creatinine less than 1 with mild azotemia. Following extubation 2 days ago she continues to protect her airway well. 10/26: Patient is now diuresed to a negative fluid balance of 21 L. Echo indicates reduced systolic function. No longer having problems with hyperkalemia. Creatinine now less than 1. We will restart JAROD inhibitor as long-term therapy. Glucose still poorly controlled but improving. 10/27: Lung congestion persists. Prerenal azotemia developing again. Mobile secretions heard. Due to body habitus she does not breathe well when not sitting up. Presently on BiPAP. Systolic blood pressure in the 80s this morning, will reduce lisinopril dose to 5 mg p.o. twice daily. 10/28: Renal function continues to worsen although it is likely related to dehydration and not primary kidney injury. Regardless, we will stop the lisinopril and hydrate her gently with quarter normal saline. She continues to require BiPAP at night largely related to her obesity hypoventilation and obstructive sleep apnea. She will undoubtedly be a long-term placement problem , likely requiring a SNIF that will except BiPAP. Objective Vital Signs / I&O: Vital Signs 10/27/17 08:00 10/27/17 08:29 10/27/17 10:00 Temperature 98.3 F Pulse Rate 68 75 Respiratory Rate 14 Blood Pressure 106/58 L Pulse Oximetry 97 95 10/27/17 11:00 10/27/17 12:00 10/27/17 14:00 Temperature 98.5 F Pulse Rate 74 72 Respiratory Rate 16 Blood Pressure 104/57 L Pulse Oximetry 97 98 10/27/17 16:00 10/27/17 18:00 10/27/17 20:00 Temperature 98.2 F 97.9 F Pulse Rate 72 71 74 Respiratory Rate 14 10 L Blood Pressure 109/61 116/60 Pulse Oximetry 96 95 10/27/17 22:00 10/28/17 00:00 10/28/17 00:11 Temperature 97.8 F Pulse Rate 80 75 Respiratory Rate 10 L Blood Pressure 108/71 Pulse Oximetry 95 93 L 10/28/17 02:00 10/28/17 03:44 10/28/17 04:00 Temperature 97.9 F Pulse Rate 73 82 Respiratory Rate 11 L Blood Pressure 102/52 L Pulse Oximetry 96 97 10/28/17 06:00 Temperature Pulse Rate 76 Respiratory Rate Blood Pressure Pulse Oximetry Intake & Output 10/27/17 10/28/17 10/28/17 18:59 06:59 18:59 Intake Total 440 / 440 100 / 100 Balance 440 / 440 100 / 100 Weight 125.2 kg Intake: IV 200 / 200 100 / 100 Azactam Inj 1,000 MG In NS Inj 200 / 200 100 / 100 100 ML @ 200 mls/hr IV.SIG Q8H GUICHO Rx#:[id number] Oral 240 / 240 Other: # Voids 1 # Incontinent Voids 2 Date of Last Bowel Movement 10/27/17 10/27/17 # Bowel Movements 1 # Incontinent Bowel Movements 0 Result Diagrams: 10/25/17 05:20 10/28/17 03:00 Objective Remarks: GENERAL: A 62-year-old female, conversant. HEAD: Atraumatic, normocephalic. BERE. ENT: Minor congestion. NECK: Supple. Trachea in the midline. No stridor today, airway widely patent, no obstruction. CARDIOVASCULAR: Regular rate and rhythm. Normal S1, S2. No murmurs, rubs or gallops noted. PULMONARY: Bilateral equal air entry, diminished in the bases. Improved but persistent mobile secretions. ABDOMEN: Soft, obese, nontender, nondistended. No guarding, bowel sounds active. EXTREMITIES: Cracked skin on lower extremities with wrinkling of feet. Toes pink. NEUROLOGIC: Patient is alert awake. Able to communicate follows commands 4 Assessment and Plan - Assessment and Plan Plan: IMPRESSION: Acute hypercapnic and hypoxemic respiratory failure. Upper airway obstruction/stridor Congestive heart failure Acute exacerbation of chronic obstructive pulmonary disease. Gram-positive bacteremia/Micrococcus. Urinary tract infection. Bilateral lower extremity cellulitis. Anemia. Poorly controlled hypertension Obstructive sleep apnea/morbid obesity. History of congestive heart failure. History of hypertension. History of diabetes mellitus. Peripheral arterial disease. Hyperlipidemia. Fluid overload. RECOMMENDATIONS: 1. Monitor neuro status closely and currently off all sedation 2. Reintubated 10/21/2017 for stridor. Extubated 10/23. Post extubation stridor again, improved with IV Decadron, racemic epinephrine, BiPAP 3. Bronchodilators. DuoNeb every 4 hours and every 2 hours as needed for shortness of breath. 4. Decadron 4 mg IV every 6 hours 5. Discontinued lisinopril due to hyperkalemia. 6. 2-D echo to evaluate ventricular function, pending. 7. Monitor renal function, I's and O's and avoid nephrotoxins. Electrolyte replacement per protocol. Lasix 5 mg/h. Diamox 500 mg IV x4 doses 8. Nasogastric tube for GI decompression. Resume tube feeds in 24 hours. Glucerna 1.5. 9. Continue with antibiotics per ID. (Vancomycin and Azactam). Blood culture from 10/14/2017 showed micrococcus species in 2/4 bottles. Urine cx 10/14/2017 showed Lactobacillus species. Wound culture from lower extremity showed Staph aureus, Klebsiella and Pseudomonas 10. Sliding scale insulin with Accu-Cheks for glycemic control. Levemir increase to 22 q12, on 10/23 11. Monitor CBC. 12. Gastrointestinal prophylaxis with Protonix and deep vein thrombosis prophylaxis with heparin subcutaneously. 13. Hydralazine 100 mg p.o. 3 times daily. Coreg to 12.5 BID 14. Discontinue lisinopril 10 mg daily due to deteriorating renal function Overall impression: Despite losing approximately 50 pounds in water weight the patient remains critically ill. She required reintubation for stridor 10/21 but diffusion capacity is much improved. 10/23/2017 she was extubated again developed stridor but improved with BiPAP and racemic epinephrine. Despite aggressive diuresis patient still shows evidence of pulmonary edema. Diuresis increased, adding Diamox. Blood glucose and hypertension remains inadequately controlled, medications increased again today. Requiring BiPAP at night. This woman will undoubtedly require SNIF placement for a period of time.
[2017-10-28] MEDS: Pantoprazole Sodium 20 MG DR Tablet PO SCH (08:05)
[2017-10-28] MEDS: Gabapentin 300 MG Capsule PO SCH ×3 (08:05→17:22)
[2017-10-28] MEDS: Lisinopril 5 MG Tablet PO SCH ×3 (08:05→22:21)
[2017-10-28] MEDS: Carvedilol 12.5 MG Tablet PO SCH ×3 (08:06→22:20)
[2017-10-28] MEDS: Chlorhexidine 0.12% Oral Kit 15 ML UDC OROPHARYNG SCH ×2 (08:06→22:20)
[2017-10-28] MEDS: Budesonide-Formoterol 160/4.5 MCG 6 GM Inhaler INH SCH ×2 (08:08→22:27)
[2017-10-28] MEDS: Sodium Chloride 23.4% Inj 38.5 MEQ in Water for Inj, Sterile 1,000 ML IV.CONT SCH (09:41)
[2017-10-28] MEDS: Nystatin 100,000 UNITS/GM Powder 15 GM Bottle TOPICAL SCH ×4 (11:08→22:26)
--- NOTE | 2017-10-28 13:28 | P.DIET ---
Nutritional Evaluation Type of nutrition evaluation: follow-up Nutrition consult regarding: Tube Feeding Screening comments: Extubated, TFing stopped and diet advanced. Objective - Diagnosis CHF Exacerbation, B LE Cellulitis - Objective % IBW: 274 (IBW = 110#) Body Weight Used for Calculations: IBW (50 kg) Energy Needs - Lower Range (kCal/kg): 25 Energy Needs - Upper Range (kCal/kg): 30 Lower Limit kCal/kg (kCals): 1,250 Upper Limit kCal/kg (kCals): 1,500 Lower Limit Protein Factor (Grams per Kg): 1.2 Upper Limit Protein Factor (Grams per Kg): 1.6 Lower Protein Needs (Protein): 60 Upper Protein Needs (Protein): 80 Dietitian Reviewed in Medical Record: Current diet, Curent medications, Intake & Output, Labs, Medical history Diet Order: 1800 ADA, pureed, honey thickened liquids Assessment Assessment: Pt extubated, TF stopped and diet advanced. Pt is tolerating diet (per ST for texture) and is eating ~75%. CBW = 125.2 kg. LBM 10/27. 1800 ADA diet will adequately meet needs. Recommendations: CONSULT RD if needed.
[2017-10-28] MEDS: Insulin Detemir Inj 1,000 UNIT/10 ML Vial SQ SCH ×2 (15:09→22:21)
[2017-10-28] MEDS: Morphine Inj 4 MG/ML Vial IV.PUSH PRN (16:23)
[2017-10-29] MEDS: Sodium Chloride 23.4% Inj 38.5 MEQ in Water for Inj, Sterile 1,000 ML IV.CONT SCH (02:25)
[2017-10-29] MEDS: Insulin NovoLOG Aspart Correctional Sugar Inj SQ SCH ×3 (03:03→13:56)
[2017-10-29 04:55] LABS: Calcium 8.5 mg/dL (8.5-10.1); Carbon Dioxide 37.6 meq/L (21.0-32.0); Potassium 3.9 meq/L (3.5-5.1); Vancomycin,Random 16.8 Comment
[2017-10-29] MEDS: Heparin - SQ 10,000 UNITS/ML Vial SQ SCH ×6 (06:50→13:56)
[2017-10-29] MEDS: Carvedilol 12.5 MG Tablet PO SCH (08:00)
[2017-10-29] MEDS: Insulin Detemir Inj 1,000 UNIT/10 ML Vial SQ SCH (08:00)
[2017-10-29] MEDS: Gabapentin 300 MG Capsule PO SCH ×2 (08:00→12:45)
[2017-10-29] MEDS: Lisinopril 5 MG Tablet PO SCH (08:00)
--- NOTE | 2017-10-29 10:03 | P.PNCC ---
Subjective Subjective Remarks/Hospital Course: The patient is a 62-year-old female with past medical history of diabetes mellitus, COPD on 2 liters nasal cannula, obstructive sleep apnea on CPAP at home, however, she is not using it; hypertension, hyperlipidemia, CHF with pacemaker placement. She presented to [facility] ED with edema and swelling of lower extremity and shortness of breath. The patient was admitted under Hospitalist Service and was seen by Infectious Disease Service. She is currently being treated for a urinary tract infection, gram-positive bacteremia. In addition, she had a wound culture from her leg positive for Pseudomonas species and Staphylococcus aureus. Chest x-ray from this morning showed increased pulmonary vascularity. She had an ABG on 2 liters at 8:42 which showed acute hypercapnic respiratory acidosis with a pH of 7.24, CO2 72, PaO2 84, bicarbonate of 30, and saturation 93%. She was subsequently placed on BiPAP 22/10 with 30% FiO2. Due to lethargy and respiratory distress, Critical Care Medicine was consulted. When seen, the patient able to respond to questions appropriately; however, she dozes off and falls back to sleep. 10/18: Patient persists with severe lower body edema and associated cutaneous wounds. She has developed azotemia with earlier attempts at diuresis but at this point she will not resolve her skin wounds without sign fluid removal. We will attempt a continuous infusion Lasix drip to see if we can get a more gingerly diuresis and avoid the dramatic intravascular volume changes. She remains ventilator dependent. 10/19: We have finally shifted into predictable negative fluid balance. Renal function remains acceptable despite very aggressive diuretic therapy. The next few days will tell us if this is largely extravascular water or there is a component of lymphedema. 10/20: Continued 3 L diuresis daily. Creatinine has declined to 1.0, BU and acceptable at 44. Will add intermittent albumin infusion and continue loop diuretic continuous infusion. Persistent hypertension will require additional oral agents. Convert tube feeds to Glucerna 1.5 and add Levemir twice daily as a basal source of insulin. 10/21: Diurses continues with mild azotemia. Edema considerably resolved. Extubation attempted with good as exchange but upper airway stridor required reintubation. 10/22: Patient required reintubation yesterday for started. Currently intubated sedated. Continues to have excellent diuresis 2.6 L in 24 hours, continues to lose weight. Achieving negative balance. Edema resolving 10/23: Remains intubated sedated. Urine output remains excellent on Lasix drip 4 L in 24 hours. However increased predominantly inspiratory wheezing noted today. Chest x-ray slightly increased pulmonary vascular congestion, perihilar infiltrates. Will give 1 dose of Diamox 10/24: Patient was extubated yesterday. Approximately after 2 hours developed some upper airway obstruction/stridor. Additional IV Decadron given and racemic epinephrine 2 followed by BiPAP with improvement in stridor. Currently remains on BiPAP intermittently desaturates when the BiPAP mask is removed. No stridor observed. Chest x-ray shows pulmonary edema pattern. Add Diamox 500 mg IV for 3 days. Continue Lasix infusion. 10/25: Continued good response to intravenous diuretic therapy. Chest x-ray a little clearer on the left right side still with excess water. Creatinine less than 1 with mild azotemia. Following extubation 2 days ago she continues to protect her airway well. 10/26: Patient is now diuresed to a negative fluid balance of 21 L. Echo indicates reduced systolic function. No longer having problems with hyperkalemia. Creatinine now less than 1. We will restart JAROD inhibitor as long-term therapy. Glucose still poorly controlled but improving. 10/27: Lung congestion persists. Prerenal azotemia developing again. Mobile secretions heard. Due to body habitus she does not breathe well when not sitting up. Presently on BiPAP. Systolic blood pressure in the 80s this morning, will reduce lisinopril dose to 5 mg p.o. twice daily. 10/28: Renal function continues to worsen although it is likely related to dehydration and not primary kidney injury. Regardless, we will stop the lisinopril and hydrate her gently with quarter normal saline. She continues to require BiPAP at night largely related to her obesity hypoventilation and obstructive sleep apnea. She will undoubtedly be a long-term placement problem , likely requiring a SNF that will except BiPAP. 10/29: P.o. intake not adequate, will have to increase IV fluids. Prerenal azotemia again developing. Presently looking for SNIF or LTAC placement. Objective Vital Signs / I&O: Vital Signs 10/28/17 11:00 10/28/17 12:00 10/28/17 14:00 Temperature 98.4 F Pulse Rate 81 75 Respiratory Rate 20 Blood Pressure 113/81 Pulse Oximetry 94 L 94 L 10/28/17 16:00 10/28/17 18:00 10/28/17 20:00 Temperature 98.8 F 98.5 F Pulse Rate 84 79 74 Respiratory Rate 14 11 L Blood Pressure 105/57 L 95/52 L Pulse Oximetry 95 92 L 10/28/17 21:20 10/28/17 22:00 10/29/17 00:00 Temperature 98.3 F Pulse Rate 75 79 Respiratory Rate 10 L Blood Pressure 142/68 H Pulse Oximetry 95 96 10/29/17 00:36 10/29/17 02:00 10/29/17 04:00 Temperature 98.5 F Pulse Rate 76 76 Respiratory Rate 10 L Blood Pressure 128/60 Pulse Oximetry 95 97 10/29/17 04:43 10/29/17 06:00 10/29/17 07:31 Temperature Pulse Rate 81 Respiratory Rate Blood Pressure Pulse Oximetry 97 96 10/29/17 08:00 Temperature Pulse Rate 86 Respiratory Rate Blood Pressure Pulse Oximetry Intake & Output 10/28/17 10/29/17 10/29/17 18:59 06:59 18:59 Intake Total 480 / 480 1109.625 / 1109.625 Output Total 300 / 300 Balance 180 / 180 1109.625 / 1109.625 Weight 130.1 kg Intake: IV 200 / 200 1109.625 / 1109.625 Sodium Chloride 23.4% Inj 38.5 1009.625 / 1009.625 MEQ In Sterile Water for Inj 1, 000 ML @ 84 mls/hr IV.CONT . Q12H2M [facility] Rx#:[id number] Azactam Inj 1,000 MG In NS Inj 200 / 200 100 / 100 100 ML @ 200 mls/hr IV.SIG Q8H [facility] Rx#:[id number] Oral 280 / 280 Output: Urine 300 / 300 Other: # Incontinent Voids 1 Date of Last Bowel Movement 10/27/17 10/27/17 10/27/17 Result Diagrams: 10/25/17 05:20 10/29/17 02:33 Objective Remarks: GENERAL: A 62-year-old female, conversant. HEAD: Atraumatic, normocephalic. BERE. ENT: Minor congestion. NECK: Supple. Trachea in the midline. No stridor today, airway widely patent, no obstruction. CARDIOVASCULAR: Regular rate and rhythm. Normal S1, S2. No murmurs, rubs or gallops noted. PULMONARY: Bilateral equal air entry, diminished in the bases. Improved but persistent mobile secretions. ABDOMEN: Soft, obese, nontender, nondistended. No guarding, bowel sounds active. EXTREMITIES: Cracked skin on lower extremities with wrinkling of feet. Toes pink. NEUROLOGIC: Patient is alert awake. Able to communicate follows commands 4 Assessment and Plan - Assessment and Plan Plan: IMPRESSION: Acute hypercapnic and hypoxemic respiratory failure. Upper airway obstruction/stridor Congestive heart failure Acute exacerbation of chronic obstructive pulmonary disease. Gram-positive bacteremia/Micrococcus. Urinary tract infection. Bilateral lower extremity cellulitis. Anemia. Poorly controlled hypertension Obstructive sleep apnea/morbid obesity. History of congestive heart failure. History of hypertension. History of diabetes mellitus. Peripheral arterial disease. Hyperlipidemia. Fluid overload -resolved. RECOMMENDATIONS: 1. Monitor neuro status closely and currently off all sedation 2. Reintubated 10/21/2017 for stridor. Extubated 10/23. Post extubation stridor again, improved with IV Decadron, racemic epinephrine, BiPAP 3. Bronchodilators. DuoNeb every 4 hours and every 2 hours as needed for shortness of breath. 4. Decadron 4 mg IV every 6 hours 5. Discontinued lisinopril due to hyperkalemia. 6. 2-D echo, EF 30% 7. Monitor renal function, I's and O's and avoid nephrotoxins. Electrolyte replacement per protocol. Lasix 5 mg/h. Diamox 500 mg IV x4 doses 8. Nasogastric tube for GI decompression. Resume tube feeds in 24 hours. Glucerna 1.5. 9. Continue with antibiotics per ID. (Vancomycin and Azactam). Blood culture from 10/14/2017 showed micrococcus species in 2/4 bottles. Urine cx 10/14/2017 showed Lactobacillus species. Wound culture from lower extremity showed Staph aureus, Klebsiella and Pseudomonas 10. Sliding scale insulin with Accu-Cheks for glycemic control. Levemir increase to 22 q12, on 10/23 11. Monitor CBC. 12. Gastrointestinal prophylaxis with Protonix and deep vein thrombosis prophylaxis with heparin subcutaneously. 13. Hydralazine 100 mg p.o. 3 times daily. Coreg to 12.5 BID 14. Discontinue lisinopril 10 mg daily due to deteriorating renal function 15. Previous IV fluid to 125 an hour until azotemia resolves Overall impression: Despite losing approximately 50 pounds in water weight the patient remains critically ill. She required reintubation for stridor 10/21 but diffusion capacity is much improved. 10/23/2017 she was extubated again developed stridor but improved with BiPAP and racemic epinephrine. Despite aggressive diuresis patient still shows evidence of pulmonary edema. Diuresis increased, adding Diamox. Blood glucose and hypertension remains inadequately controlled, medications increased again today. Requiring BiPAP at night. This woman will undoubtedly require SNF placement for a period of time.
[2017-10-29] MEDS: Chlorhexidine 0.12% Oral Kit 15 ML UDC OROPHARYNG SCH (12:45)
[2017-10-29] MEDS: Oral Hygiene Kit OROPHARYNG SCH ×2 (12:47→12:48)
[2017-10-29] MEDS: Pantoprazole Sodium 20 MG DR Tablet PO SCH (13:01)
[2017-10-29] MEDS: Morphine Inj 4 MG/ML Vial IV.PUSH PRN (13:07)
[2017-10-29 14:38] VITALS: PULSE 82; RESP 14; O2SAT 97
[2017-10-29 14:48] VITALS: BP 130/60; TEMP 98.5
--- NOTE | 2017-10-29 14:56 | P.DS ---
Date of admission: 10/16/17 10:53 Primary care physician: Celena Muniz DO Attending physician on discharge: Jeffery Carney Anticipated date of discharge: 10/29/17 Brief History from admission: 62-year-old female with a past medical history significant for insulin- dependent diabetes mellitus, COPD on 2 L nasal cannula, PAD, hypertension, hyperlipidemia, CHF with pacemaker and defibrillator presents to the emergency department for the evaluation of lower extremity edema and abdominal swelling with accompanying shortness of breath. The patient states that her shortness of breath is mild however her legs are cracked, red and weeping. She also complains of a redness under her pannus and under bilateral breasts. The patient reports compliance with both her diet and her medications. She was last seen for similar symptoms only 1 month ago and her Lasix was increased to 40 mg p.o. twice daily. She denies any chest pain. Mild to moderate abdominal pain associated with swelling. Bilateral lower extremity pain. No fevers/ chills. No nausea/vomiting/diarrhea. DS: Diagnosis - Discharge Diagnosis (1) CHF (congestive heart failure) Status: Acute (2) Cellulitis Status: Acute (3) COPD (chronic obstructive pulmonary disease) Status: Acute (4) T2DM (type 2 diabetes mellitus) Status: Chronic (5) HTN (hypertension) Status: Chronic (6) PAD (peripheral artery disease) Status: Chronic (7) Acute respiratory failure with hypoxia and hypercarbia Status: Acute (8) Obesity Status: Chronic (9) COPD with asthma Status: Acute DS: Summary Hospital Course: The patient is a 62-year-old female with past medical history of diabetes mellitus, COPD on 2 liters nasal cannula, obstructive sleep apnea on CPAP at home, however, she is not using it; hypertension, hyperlipidemia, CHF with pacemaker placement. She presented to [facility] ED with edema and swelling of lower extremity and shortness of breath. The patient was admitted under Hospitalist Service and was seen by Infectious Disease Service. She is currently being treated for a urinary tract infection, gram-positive bacteremia. In addition, she had a wound culture from her leg positive for Pseudomonas species and Staphylococcus aureus. Chest x-ray from this morning showed increased pulmonary vascularity. She had an ABG on 2 liters at 8:42 which showed acute hypercapnic respiratory acidosis with a pH of 7.24, CO2 72, PaO2 84, bicarbonate of 30, and saturation 93%. She was subsequently placed on BiPAP 22/10 with 30% FiO2. Due to lethargy and respiratory distress, Critical Care Medicine was consulted. When seen, the patient able to respond to questions appropriately; however, she dozes off and falls back to sleep. 10/18: Patient persists with severe lower body edema and associated cutaneous wounds. She has developed azotemia with earlier attempts at diuresis but at this point she will not resolve her skin wounds without sign fluid removal. We will attempt a continuous infusion Lasix drip to see if we can get a more gingerly diuresis and avoid the dramatic intravascular volume changes. She remains ventilator dependent. 10/19: We have finally shifted into predictable negative fluid balance. Renal function remains acceptable despite very aggressive diuretic therapy. The next few days will tell us if this is largely extravascular water or there is a component of lymphedema. 10/20: Continued 3 L diuresis daily. Creatinine has declined to 1.0, BU and acceptable at 44. Will add intermittent albumin infusion and continue loop diuretic continuous infusion. Persistent hypertension will require additional oral agents. Convert tube feeds to Glucerna 1.5 and add Levemir twice daily as a basal source of insulin. 10/21: Diurses continues with mild azotemia. Edema considerably resolved. Extubation attempted with good as exchange but upper airway stridor required reintubation. 10/22: Patient required reintubation yesterday for started. Currently intubated sedated. Continues to have excellent diuresis 2.6 L in 24 hours, continues to lose weight. Achieving negative balance. Edema resolving 10/23: Remains intubated sedated. Urine output remains excellent on Lasix drip 4 L in 24 hours. However increased predominantly inspiratory wheezing noted today. Chest x-ray slightly increased pulmonary vascular congestion, perihilar infiltrates. Will give 1 dose of Diamox 10/24: Patient was extubated yesterday. Approximately after 2 hours developed some upper airway obstruction/stridor. Additional IV Decadron given and racemic epinephrine 2 followed by BiPAP with improvement in stridor. Currently remains on BiPAP intermittently desaturates when the BiPAP mask is removed. No stridor observed. Chest x-ray shows pulmonary edema pattern. Add Diamox 500 mg IV for 3 days. Continue Lasix infusion. 08/17: Continued good response to intravenous diuretic therapy. Chest x-ray a little clearer on the left right side still with excess water. Creatinine less than 1 with mild azotemia. Following extubation 2 days ago she continues to protect her airway well. 10/26: Patient is now diuresed to a negative fluid balance of 21 L. Echo indicates reduced systolic function. No longer having problems with hyperkalemia. Creatinine now less than 1. We will restart JAROD inhibitor as long-term therapy. Glucose still poorly controlled but improving. 10/27: Lung congestion persists. Prerenal azotemia developing again. Mobile secretions heard. Due to body habitus she does not breathe well when not sitting up. Presently on BiPAP. Systolic blood pressure in the 80s this morning, will reduce lisinopril dose to 5 mg p.o. twice daily. 10/28: Renal function continues to worsen although it is likely related to dehydration and not primary kidney injury. Regardless, we will stop the lisinopril and hydrate her gently with quarter normal saline. She continues to require BiPAP at night largely related to her obesity hypoventilation and obstructive sleep apnea. She will undoubtedly be a long-term placement problem , likely requiring a SNF that will except BiPAP. 10/29: P.o. intake not adequate, will have to increase IV fluids. Prerenal azotemia again developing. Presently looking arranging LTAC placement. - Time Spent with Patient Total time spent providing and/or coordinating discharge services: Greater than 30 minutes - Quality: VTE Deep Vein Thrombosis/Pulmonary Embolism Present on Admission: No Exam Vital signs: Vital Signs 10/28/17 16:00 10/28/17 18:00 10/28/17 20:00 Temperature 98.8 F 98.5 F Pulse Rate 84 79 74 Respiratory Rate 14 11 L Blood Pressure 105/57 L 95/52 L Pulse Oximetry 95 92 L 10/28/17 21:20 10/28/17 22:00 10/29/17 00:00 Temperature 98.3 F Pulse Rate 75 79 Respiratory Rate 10 L Blood Pressure 142/68 H Pulse Oximetry 95 96 10/29/17 00:36 10/29/17 02:00 10/29/17 04:00 Temperature 98.5 F Pulse Rate 76 76 Respiratory Rate 10 L Blood Pressure 128/60 Pulse Oximetry 95 97 10/29/17 04:43 10/29/17 06:00 10/29/17 07:31 Temperature Pulse Rate 81 Respiratory Rate Blood Pressure Pulse Oximetry 97 96 10/29/17 08:00 10/29/17 10:00 10/29/17 10:15 Temperature 99.0 F Pulse Rate 86 77 Respiratory Rate 12 Blood Pressure 142/63 H Pulse Oximetry 97 96 10/29/17 12:00 10/29/17 14:00 10/29/17 14:35 Temperature 98.5 F Pulse Rate 86 83 82 Respiratory Rate 14 14 Blood Pressure 130/60 Pulse Oximetry 97 97 Intake & Output 10/28/17 10/29/17 10/29/17 18:59 06:59 18:59 Intake Total 480 / 480 1109.625 / 1109.625 Output Total 300 / 300 Balance 180 / 180 1109.625 / 1109.625 Weight 130.1 kg Intake: IV 200 / 200 1109.625 / 1109.625 Sodium Chloride 23.4% Inj 38.5 1009.625 / 1009.625 MEQ In Sterile Water for Inj 1, 000 ML @ 84 mls/hr IV.CONT . Q12H2M [facility] Rx#:[id number] Azactam Inj 1,000 MG In NS Inj 200 / 200 100 / 100 100 ML @ 200 mls/hr IV.SIG Q8H [facility] Rx#:[id number] Oral 280 / 280 Output: Urine 300 / 300 Other: # Incontinent Voids 1 Date of Last Bowel Movement 10/27/17 10/27/17 10/27/17 Narrative: Lungs: Scattered sonorous rhonchi Results Procedures completed during hospitalization: Intubation and mechanical ventilation. Labs on day of discharge: Labs from last 24 hours 10/29/17 10/29/17 10/29/17 14:02 08:25 03:01 Sodium Potassium Chloride Carbon Dioxide Anion Gap BUN Creatinine Estimated GFR POC Glucose 73 70 86 Random Glucose Calcium Random Vancomycin 10/29/17 10/28/17 02:33 22:19 Sodium 148 H Potassium 3.9 Chloride 107 Carbon Dioxide 37.6 H Anion Gap 3 L BUN 66 H Creatinine 1.57 H Estimated GFR 34 L POC Glucose 81 Random Glucose 76 Calcium 8.5 Random Vancomycin 16.8 - Impressions ITS Impressions Chest X-Ray 10/28/17 04:00 CONCLUSION: Cardiomegaly. Minimal right basilar atelectasis. Discharge Plan - Discharge Disposition Patient Disposition: 02 Disch To Another Hospital - Discharge Condition Condition: Good - Discharge Order Discharge Orders: Discharge Order (Routine); Ordered 10/29/17 Ordered By: Jeffery Carney - Discharge Details Anticipated Discharge Date: 10/29/17 - Physicians Team Primary Care Provider: Celena Muniz Attending Provider: Tea Duran Other Providers: Constanza Acosta MD ; Cuca Oglesby MD ; Zoey Giraldo MD ; Tea Duran MD ; Elvis Bueno MD ; [facility],Agency ; [facility]
== END 2017-10-29 17:19 ==
LOC: NEPC 17:21 → NEDA 17:21 → NEPFCDU 22:01 → N03 10-17 10:50
PROVIDERS: ADMIT Internal Medicine Critical Care Medicine; ATTEND Internal Medicine Critical Care Medicine